=== PATIENT | female | born 1940 | race Caucasian/White ===

== ENCOUNTER → 2017-09-04 07:11 | Outpatient (CLI) | payer MEDICARE, SELFPAY ==
[2017-09-04 10:20] LABS: Absolute Lymphocyte Count 1.47 X10^3/ul (0.83-4.51); Absolute Neutrophil Count 5.1 X10^3/uL (2.0-7.7); Basophil# 0.01 X10^3/uL; Basophil% 0.1 % (0-1); Eosinophil# 0.11 X10^3/uL; Eosinophils% 1.5 % (0-5); Hemoglobin 13.8 g/dl (12.0-15.0); Lymphocyte # 1.47 X10^3/ul (4.0); Lymphocyte % 20.1 % (19-41); Mean Corp Hgb Conc 32.9 g/gl (32-36); Mean Corpuscular Hgb 32.4 pg (27.0-32.0); Mean Corpuscular Volume 98.6 fL (81-99); Mean Platelet Vol. 9.1 fl (6.2-12.0); Monocyte% 8.2 % (0-10); Neutrophil # 5.13 X10^3/uL (2.7-7.7); Platelet Count 298 K/mm3 (150-450); RBC Distribution Width CV 13.8 % (11.6-14.6); RBC Distribution Width SD 48.2 fl (35.1-43.9); Red Blood Count 4.26 M/mm3 (4.2-5.4); White Blood Count 7.3 K/mm3 (4.4-11.0)
[2017-09-04 10:22] LABS: POSITIVE COUNT NO; POSITIVE DIFFERENTIAL NO; POSITIVE MORPHOLOGY NO
[2017-09-04 10:33] LABS: AST(SGOT) 24 U/L (15-37); Alanine Aminotransfer ALT/SGPT 27 U/L (13-56); Albumin, Serum 3.9 g/dL (3.2-5.0); Alkaline Phosphatase 81 U/L (45-117); Anion Gap 9 (5-15); BUN 16 mg/dL (7-18); BUN/Creat Ratio 16.8 RATIO (10-20); Chloride 102 mmol/L (98-107); Creatinine, Serum 0.95 mg/dL (0.55-1.02); EST Glomerular Filtration Rate 61 mL/min (>60); Est Glom Filt Rate - Afr Amer 73 mL/min (>60); Glucose 91 mg/dL (74-106); Potassium 4.3 mmol/L (3.5-5.1); Protein, Total 7.9 g/dL (6.4-8.2); Sodium Level 140 mmol/L (136-145)
== END ==
PROVIDERS: Family Provider Family Medicine Geriatric Medicine; PCP Family Medicine Geriatric Medicine; Visit Provider Internal Medicine Rheumatology
DX: M06.09 Rheumatoid arthritis without rheumatoid factor, multiple sites (principal); M21.40 Flat foot [pes planus] (acquired), unspecified foot; J84.10 Pulmonary fibrosis, unspecified; M81.0 Age-related osteoporosis without current pathological fracture; E11.9 Type 2 diabetes mellitus without complications; E78.5 Hyperlipidemia, unspecified; Z79.899 Other long term (current) drug therapy
CPT/HCPCS: 36415; 80053; 85025

== ENCOUNTER → 2017-09-20 11:56 | Outpatient (CLI) | payer MEDICARE, SELFPAY ==
[2017-09-20 14:00] LABS: Absolute Lymphocyte Count 1.69 X10^3/ul (0.83-4.51); Absolute Neutrophil Count 4.1 X10^3/uL (2.0-7.7); Basophil# 0.02 X10^3/uL; Basophil% 0.3 % (0-1); Eosinophils% 1.5 % (0-5); Hematocrit 40.5 % (37-47); Hemoglobin 13.2 g/dl (12.0-15.0); Lymphocyte # 1.69 X10^3/ul (4.0); Mean Corp Hgb Conc 32.6 g/gl (32-36); Mean Corpuscular Hgb 32.4 pg (27.0-32.0); Mean Corpuscular Volume 99.3 fL (81-99); Mean Platelet Vol. 9.2 fl (6.2-12.0); Monocyte# 0.64 X10^3/uL; Monocyte% 9.8 % (0-10); Neutrophil # 4.05 X10^3/uL (2.7-7.7); Neutrophil % 62.2 % (47-70); Platelet Count 295 K/mm3 (150-450); RBC Distribution Width SD 49.7 fl (35.1-43.9); Red Blood Count 4.08 M/mm3 (4.2-5.4); White Blood Count 6.5 K/mm3 (4.4-11.0)
[2017-09-20 14:03] LABS: POSITIVE COUNT NO; POSITIVE DIFFERENTIAL NO; POSITIVE MORPHOLOGY NO
[2017-09-20 14:14] LABS: Vitamin D,25 Hydroxy 40.5 ng/mL (29.95-100.01)
[2017-09-20 14:23] LABS: ALB/GLOB Ratio 1.1 RATIO (0.9-2.4); AST(SGOT) 21 U/L (15-37); Alanine Aminotransfer ALT/SGPT 28 U/L (13-56); Alkaline Phosphatase 80 U/L (45-117); Anion Gap 10 (5-15); BUN 13 mg/dL (7-18); BUN/Creat Ratio 14.9 RATIO (10-20); Calcium,Total 9.5 mg/dL (8.5-10.1); Chloride 105 mmol/L (98-107); Creatinine, Serum 0.87 mg/dL (0.55-1.02); EST Glomerular Filtration Rate 67 mL/min (>60); Est Glom Filt Rate - Afr Amer 81 mL/min (>60); Globulin 3.8 g/dL (2.2-4.2); Glucose 92 mg/dL (74-106); Potassium 4.1 mmol/L (3.5-5.1); Protein, Total 7.8 g/dL (6.4-8.2); Sodium Level 142 mmol/L (136-145)
== END ==
PROVIDERS: Family Provider Family Medicine Geriatric Medicine; PCP Family Medicine Geriatric Medicine; Visit Provider Family Medicine Geriatric Medicine
DX: E11.9 Type 2 diabetes mellitus without complications (principal); I10 Essential (primary) hypertension; M81.0 Age-related osteoporosis without current pathological fracture
CPT/HCPCS: 36415; 80053; 82306; 84443; 85025

== ENCOUNTER → 2017-11-22 07:10 | Outpatient (CLI) | payer MEDICARE, SELFPAY ==
[2017-11-22 10:33] LABS: Absolute Lymphocyte Count 1.06 X10^3/ul (0.83-4.51); Absolute Neutrophil Count 4.8 X10^3/uL (2.0-7.7); Basophil# 0.02 X10^3/uL; Basophil% 0.3 % (0-1); Eosinophils% 1.5 % (0-5); Hematocrit 41.1 % (37-47); Hemoglobin 13.4 g/dl (12.0-15.0); Lymphocyte # 1.06 X10^3/ul (4.0); Lymphocyte % 16.2 % (19-41); Mean Corp Hgb Conc 32.6 g/gl (32-36); Mean Corpuscular Hgb 32.6 pg (27.0-32.0); Mean Platelet Vol. 9.2 fl (6.2-12.0); Monocyte# 0.62 X10^3/uL; Monocyte% 9.5 % (0-10); Neutrophil # 4.75 X10^3/uL (2.7-7.7); Neutrophil % 72.3 % (47-70); Platelet Count 309 K/mm3 (150-450); RBC Distribution Width CV 14.2 % (11.6-14.6); RBC Distribution Width SD 50.4 fl (35.1-43.9); Red Blood Count 4.11 M/mm3 (4.2-5.4); White Blood Count 6.6 K/mm3 (4.4-11.0)
[2017-11-22 11:13] LABS: POSITIVE COUNT NO; POSITIVE DIFFERENTIAL NO; POSITIVE MORPHOLOGY NO
[2017-11-22 11:14] LABS: AST(SGOT) 22 U/L (15-37); Alanine Aminotransfer ALT/SGPT 28 U/L (13-56); Albumin, Serum 3.8 g/dL (3.2-5.0); Alkaline Phosphatase 82 U/L (45-117); Anion Gap 6 (5-15); BUN 12 mg/dL (7-18); Calcium,Total 9.3 mg/dL (8.5-10.1); Chloride 105 mmol/L (98-107); Creatinine, Serum 0.93 mg/dL (0.55-1.02); EST Glomerular Filtration Rate 62 mL/min (>60); Est Glom Filt Rate - Afr Amer 75 mL/min (>60); Globulin 3.8 g/dL (2.2-4.2); Glucose 83 mg/dL (74-106); Potassium 3.9 mmol/L (3.5-5.1); Protein, Total 7.6 g/dL (6.4-8.2); Sodium Level 140 mmol/L (136-145)
== END ==
PROVIDERS: Family Provider Family Medicine Geriatric Medicine; PCP Family Medicine Geriatric Medicine; Visit Provider Internal Medicine Rheumatology
DX: M06.00 Rheumatoid arthritis without rheumatoid factor, unspecified site (principal); Z79.899 Other long term (current) drug therapy; M21.40 Flat foot [pes planus] (acquired), unspecified foot; J84.10 Pulmonary fibrosis, unspecified; M81.0 Age-related osteoporosis without current pathological fracture; E11.9 Type 2 diabetes mellitus without complications; E78.5 Hyperlipidemia, unspecified
CPT/HCPCS: 36415; 80053; 85025

== ENCOUNTER → 2018-02-20 07:13 | Outpatient (CLI) | payer MEDICARE, SELFPAY ==
[2018-02-20 11:07] LABS: ALB/GLOB Ratio 0.9 RATIO (0.9-2.4); AST(SGOT) 18 U/L (15-37); Alanine Aminotransfer ALT/SGPT 27 U/L (13-56); Albumin, Serum 3.7 g/dL (3.2-5.0); Alkaline Phosphatase 77 U/L (45-117); Anion Gap 9 (5-15); BUN 12 mg/dL (7-18); BUN/Creat Ratio 13.2 RATIO (10-20); Calcium,Total 9.8 mg/dL (8.5-10.1); Chloride 105 mmol/L (98-107); Creatinine, Serum 0.91 mg/dL (0.55-1.02); EST Glomerular Filtration Rate 64 mL/min (>60); Est Glom Filt Rate - Afr Amer 77 mL/min (>60); Globulin 3.9 g/dL (2.2-4.2); Glucose 88 mg/dL (74-106); Potassium 4.2 mmol/L (3.5-5.1); Protein, Total 7.6 g/dL (6.4-8.2); Sodium Level 141 mmol/L (136-145)
[2018-02-20 12:00] LABS: Absolute Neutrophil Count 4.8 X10^3/uL (2.0-7.7); Basophil# 0.02 X10^3/uL; Basophil% 0.3 % (0-1); Eosinophil# 0.08 X10^3/uL; Eosinophils% 1.2 % (0-5); Hemoglobin 13.2 g/dl (12.0-15.0); Lymphocyte % 16.9 % (19-41); Mean Corp Hgb Conc 32.2 g/gl (32-36); Mean Corpuscular Hgb 32.4 pg (27.0-32.0); Mean Corpuscular Volume 100.5 fL (81-99); Mean Platelet Vol. 8.9 fl (6.2-12.0); Monocyte% 7.7 % (0-10); Neutrophil # 4.81 X10^3/uL (2.7-7.7); Neutrophil % 73.7 % (47-70); Platelet Count 332 K/mm3 (150-450); RBC Distribution Width SD 50.3 fl (35.1-43.9); Red Blood Count 4.08 M/mm3 (4.2-5.4); White Blood Count 6.5 K/mm3 (4.4-11.0)
[2018-02-20 12:23] LABS: POSITIVE COUNT NO; POSITIVE DIFFERENTIAL NO; POSITIVE MORPHOLOGY NO
== END ==
PROVIDERS: Family Provider Family Medicine Geriatric Medicine; PCP Family Medicine Geriatric Medicine; Visit Provider Internal Medicine Rheumatology
DX: M06.041 Rheumatoid arthritis without rheumatoid factor, right hand (principal); M21.40 Flat foot [pes planus] (acquired), unspecified foot; J84.10 Pulmonary fibrosis, unspecified; E11.9 Type 2 diabetes mellitus without complications; E78.5 Hyperlipidemia, unspecified; M81.0 Age-related osteoporosis without current pathological fracture; Z79.899 Other long term (current) drug therapy
CPT/HCPCS: 36415; 80053; 85025

== ENCOUNTER → 2018-03-26 10:54 | Outpatient (CLI) | payer MEDICARE, SELFPAY ==
--- NOTE | 2018-03-26 11:00 | RAD_ITS ---
STUDY: X-RAY - SACRUM/COCCYX REASON FOR EXAM: Female, 78 years old. Coccyx pain x1 year TECHNIQUE: 3 view(s) of the sacrum and coccyx were obtained. COMPARISON: None. 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 Normal visualized sacral ala and fused sacral bodies. Normal sacrococcygeal junction with a normal angulation. There is demineralization of the coccygeal segments. The presacral soft tissue structures are unremarkable. There is no demonstrated fracture. Left hip arthroplasty RAD/Sacrum-Coccyx min 2 Views IMPRESSION: No acute findings Electronically Signed: Alli Virk DO at 10:06 EDT Tel , Service support ,
[2018-03-26 16:30] LABS: Absolute Lymphocyte Count 1.89 X10^3/ul (0.83-4.51); Absolute Neutrophil Count 4.2 X10^3/uL (2.0-7.7); Basophil# 0.02 X10^3/uL; Basophil% 0.3 % (0-1); Eosinophil# 0.11 X10^3/uL; Eosinophils% 1.7 % (0-5); Hematocrit 41.2 % (37-47); Hemoglobin 13.2 g/dl (12.0-15.0); Lymphocyte # 1.89 X10^3/ul (4.0); Lymphocyte % 28.4 % (19-41); Mean Corpuscular Hgb 32.7 pg (27.0-32.0); Mean Platelet Vol. 9.3 fl (6.2-12.0); Monocyte# 0.44 X10^3/uL; Monocyte% 6.6 % (0-10); Neutrophil # 4.19 X10^3/uL (2.7-7.7); Neutrophil % 62.8 % (47-70); Platelet Count 351 K/mm3 (150-450); RBC Distribution Width CV 14.2 % (11.6-14.6); RBC Distribution Width SD 52.1 fl (35.1-43.9); Red Blood Count 4.04 M/mm3 (4.2-5.4); White Blood Count 6.7 K/mm3 (4.4-11.0)
[2018-03-26 16:45] LABS: Vitamin D,25 Hydroxy 37.5 ng/mL (29.95-100.01)
[2018-03-26 16:58] LABS: AST(SGOT) 22 U/L (15-37); Alanine Aminotransfer ALT/SGPT 26 U/L (13-56); Albumin, Serum 3.9 g/dL (3.2-5.0); Alkaline Phosphatase 79 U/L (45-117); Anion Gap 8 (5-15); BUN 14 mg/dL (7-18); BUN/Creat Ratio 14.4 RATIO (10-20); Calcium,Total 9.5 mg/dL (8.5-10.1); Chloride 104 mmol/L (98-107); Creatinine, Serum 0.97 mg/dL (0.55-1.02); EST Glomerular Filtration Rate 59 mL/min (>60); Est Glom Filt Rate - Afr Amer 71 mL/min (>60); Globulin 4.1 g/dL (2.2-4.2); Glucose 86 mg/dL (74-106); Potassium 4.2 mmol/L (3.5-5.1); Sodium Level 140 mmol/L (136-145); Thyroid Stim Hormone (TSH) 3.28 uIU/mL (0.358-3.74)
[2018-03-26 17:09] LABS: POSITIVE COUNT NO; POSITIVE DIFFERENTIAL NO; POSITIVE MORPHOLOGY NO
== END ==
PROVIDERS: Family Provider Family Medicine Geriatric Medicine; PCP Family Medicine Geriatric Medicine; Referring Provider Family Medicine Geriatric Medicine; Visit Provider Family Medicine Geriatric Medicine
DX: S33.8XXA Sprain of other parts of lumbar spine and pelvis, initial encounter (principal); X58.XXXA Exposure to other specified factors, initial encounter; Y93.9 Activity, unspecified; Y92.9 Unspecified place or not applicable; Y99.9 Unspecified external cause status; E11.9 Type 2 diabetes mellitus without complications; I10 Essential (primary) hypertension; E55.9 Vitamin D deficiency, unspecified
CPT/HCPCS: 36415; 72220; 80053; 82306; 84443; 85025

== ENCOUNTER → 2018-05-16 07:01 | Outpatient (CLI) | payer MEDICARE, SELFPAY ==
[2018-05-16 10:22] LABS: Absolute Lymphocyte Count 1.01 X10^3/ul (0.83-4.51); Absolute Neutrophil Count 5.3 X10^3/uL (2.0-7.7); Basophil# 0.01 X10^3/uL; Basophil% 0.1 % (0-1); Eosinophil# 0.06 X10^3/uL; Eosinophils% 0.9 % (0-5); Hematocrit 43.3 % (37-47); Lymphocyte # 1.01 X10^3/ul (4.0); Lymphocyte % 14.7 % (19-41); Mean Corp Hgb Conc 32.3 g/gl (32-36); Mean Corpuscular Hgb 32.3 pg (27.0-32.0); Monocyte# 0.54 X10^3/uL; Monocyte% 7.9 % (0-10); Neutrophil # 5.25 X10^3/uL (2.7-7.7); Neutrophil % 76.4 % (47-70); Platelet Count 316 K/mm3 (150-450); RBC Distribution Width CV 13.8 % (11.6-14.6); RBC Distribution Width SD 50.8 fl (35.1-43.9); Red Blood Count 4.33 M/mm3 (4.2-5.4); White Blood Count 6.9 K/mm3 (4.4-11.0)
[2018-05-16 10:23] LABS: POSITIVE COUNT NO; POSITIVE DIFFERENTIAL NO; POSITIVE MORPHOLOGY NO
[2018-05-16 10:33] LABS: ALB/GLOB Ratio 0.9 RATIO (0.9-2.4); AST(SGOT) 23 U/L (15-37); Alanine Aminotransfer ALT/SGPT 24 U/L (13-56); Alkaline Phosphatase 83 U/L (45-117); Anion Gap 9 (5-15); BUN 17 mg/dL (7-18); BUN/Creat Ratio 15.5 RATIO (10-20); Calcium,Total 10.4 mg/dL (8.5-10.1); Chloride 103 mmol/L (98-107); EST Glomerular Filtration Rate 51 mL/min (>60); Est Glom Filt Rate - Afr Amer 62 mL/min (>60); Globulin 4.3 g/dL (2.2-4.2); Glucose 95 mg/dL (74-106); Potassium 4.2 mmol/L (3.5-5.1); Protein, Total 8.3 g/dL (6.4-8.2); Sodium Level 142 mmol/L (136-145)
== END ==
PROVIDERS: Family Provider Family Medicine Geriatric Medicine; PCP Family Medicine Geriatric Medicine; Referring Provider Internal Medicine Rheumatology; Visit Provider Internal Medicine Rheumatology
DX: M06.00 Rheumatoid arthritis without rheumatoid factor, unspecified site (principal); Z79.899 Other long term (current) drug therapy; M21.40 Flat foot [pes planus] (acquired), unspecified foot; J84.10 Pulmonary fibrosis, unspecified; M81.0 Age-related osteoporosis without current pathological fracture; E11.9 Type 2 diabetes mellitus without complications; E78.5 Hyperlipidemia, unspecified
CPT/HCPCS: 36415; 80053; 85025

== ENCOUNTER → 2018-08-21 07:02 | Outpatient (CLI) | payer MEDICARE, SELFPAY ==
[2018-08-21 09:56] LABS: Absolute Lymphocyte Count 1.18 X10^3/ul (0.83-4.51); Basophil# 0.02 X10^3/uL; Basophil% 0.2 % (0-1); Eosinophil# 0.08 X10^3/uL; Eosinophils% 0.8 % (0-5); Hematocrit 43.1 % (37-47); Hemoglobin 13.7 g/dl (12.0-15.0); Lymphocyte # 1.18 X10^3/ul (4.0); Lymphocyte % 11.8 % (19-41); Mean Corp Hgb Conc 31.8 g/gl (32-36); Mean Corpuscular Hgb 31.1 pg (27.0-32.0); Mean Platelet Vol. 8.7 fl (6.2-12.0); Monocyte# 0.73 X10^3/uL; Monocyte% 7.3 % (0-10); Neutrophil % 79.7 % (47-70); POSITIVE COUNT NO; POSITIVE DIFFERENTIAL NO; POSITIVE MORPHOLOGY NO; Platelet Count 412 K/mm3 (150-450); RBC Distribution Width CV 13.7 % (11.6-14.6); RBC Distribution Width SD 47.2 fl (35.1-43.9)
[2018-08-21 10:10] LABS: ALB/GLOB Ratio 0.8 RATIO (0.9-2.4); AST(SGOT) 18 U/L (15-37); Alanine Aminotransfer ALT/SGPT 25 U/L (13-56); Albumin, Serum 3.5 g/dL (3.2-5.0); Alkaline Phosphatase 71 U/L (45-117); Anion Gap 12 (5-15); BUN 17 mg/dL (7-18); BUN/Creat Ratio 18.3 RATIO (10-20); Calcium,Total 9.8 mg/dL (8.5-10.1); Chloride 101 mmol/L (98-107); Creatinine, Serum 0.93 mg/dL (0.55-1.02); EST Glomerular Filtration Rate 62 mL/min (>60); Est Glom Filt Rate - Afr Amer 75 mL/min (>60); Globulin 4.6 g/dL (2.2-4.2); Glucose 142 mg/dL (74-106); Potassium 4.3 mmol/L (3.5-5.1); Protein, Total 8.1 g/dL (6.4-8.2); Sodium Level 140 mmol/L (136-145)
== END ==
PROVIDERS: Family Provider Family Medicine Geriatric Medicine; PCP Family Medicine Geriatric Medicine; Referring Provider Internal Medicine Rheumatology; Visit Provider Internal Medicine Rheumatology
DX: M06.00 Rheumatoid arthritis without rheumatoid factor, unspecified site (principal); M21.40 Flat foot [pes planus] (acquired), unspecified foot; J84.10 Pulmonary fibrosis, unspecified; M81.0 Age-related osteoporosis without current pathological fracture; E11.9 Type 2 diabetes mellitus without complications; E78.5 Hyperlipidemia, unspecified; Z79.899 Other long term (current) drug therapy
CPT/HCPCS: 36415; 80053; 85025

== ENCOUNTER → 2018-09-20 14:41 | Outpatient (CLI) | payer MEDICARE, SELFPAY ==
[2018-09-20 16:47] LABS: Absolute Lymphocyte Count 1.73 X10^3/ul (0.83-4.51); Absolute Neutrophil Count 5.3 X10^3/uL (2.0-7.7); Basophil# 0.02 X10^3/uL; Basophil% 0.3 % (0-1); Eosinophil# 0.08 X10^3/uL; Hematocrit 40.6 % (37-47); Hemoglobin 12.9 g/dl (12.0-15.0); Lymphocyte # 1.73 X10^3/ul (4.0); Lymphocyte % 22.1 % (19-41); Mean Corp Hgb Conc 31.8 g/gl (32-36); Mean Corpuscular Hgb 30.9 pg (27.0-32.0); Mean Corpuscular Volume 97.1 fL (81-99); Mean Platelet Vol. 8.9 fl (6.2-12.0); Monocyte# 0.68 X10^3/uL; Monocyte% 8.7 % (0-10); Neutrophil # 5.32 X10^3/uL (2.7-7.7); Neutrophil % 67.8 % (47-70); Platelet Count 455 K/mm3 (150-450); RBC Distribution Width CV 14.1 % (11.6-14.6); Red Blood Count 4.18 M/mm3 (4.2-5.4); White Blood Count 7.8 K/mm3 (4.4-11.0)
[2018-09-20 16:50] LABS: POSITIVE COUNT NO; POSITIVE DIFFERENTIAL NO; POSITIVE MORPHOLOGY NO
[2018-09-20 17:34] LABS: Vitamin D,25 Hydroxy 39.6 ng/mL (29.95-100.01)
[2018-09-20 17:38] LABS: ALB/GLOB Ratio 0.9 RATIO (0.9-2.4); AST(SGOT) 22 U/L (15-37); Alanine Aminotransfer ALT/SGPT 23 U/L (13-56); Albumin, Serum 3.8 g/dL (3.2-5.0); Alkaline Phosphatase 72 U/L (45-117); Anion Gap 8 (5-15); BUN 14 mg/dL (7-18); BUN/Creat Ratio 14.9 RATIO (10-20); Calcium,Total 9.4 mg/dL (8.5-10.1); Chloride 103 mmol/L (98-107); Creatinine, Serum 0.94 mg/dL (0.55-1.02); EST Glomerular Filtration Rate 61 mL/min (>60); Est Glom Filt Rate - Afr Amer 74 mL/min (>60); Globulin 4.1 g/dL (2.2-4.2); Glucose 98 mg/dL (74-106); Protein, Total 7.9 g/dL (6.4-8.2); Sodium Level 136 mmol/L (136-145)
== END ==
PROVIDERS: Family Provider Family Medicine Geriatric Medicine; PCP Family Medicine Geriatric Medicine; Visit Provider Family Medicine Geriatric Medicine
DX: E11.9 Type 2 diabetes mellitus without complications (principal); I10 Essential (primary) hypertension; E55.9 Vitamin D deficiency, unspecified
CPT/HCPCS: 36415; 80053; 82306; 84443; 85025

== ENCOUNTER → 2018-11-13 07:02 | Outpatient (CLI) | payer MEDICARE, SELFPAY ==
[2018-11-13 09:57] LABS: Absolute Lymphocyte Count 1.22 X10^3/ul (0.83-4.51); Basophil# 0.01 X10^3/uL; Basophil% 0.2 % (0-1); Eosinophil# 0.12 X10^3/uL; Eosinophils% 2.1 % (0-5); Hematocrit 40.2 % (37-47); Lymphocyte # 1.22 X10^3/ul (4.0); Mean Corp Hgb Conc 32.3 g/gl (32-36); Mean Corpuscular Hgb 31.5 pg (27.0-32.0); Mean Corpuscular Volume 97.3 fL (81-99); Monocyte# 0.48 X10^3/uL; Monocyte% 8.2 % (0-10); Neutrophil # 3.99 X10^3/uL (2.7-7.7); Neutrophil % 68.5 % (47-70); Platelet Count 308 K/mm3 (150-450); RBC Distribution Width CV 14.9 % (11.6-14.6); RBC Distribution Width SD 50.8 fl (35.1-43.9); Red Blood Count 4.13 M/mm3 (4.2-5.4); White Blood Count 5.8 K/mm3 (4.4-11.0)
[2018-11-13 09:58] LABS: POSITIVE COUNT NO; POSITIVE DIFFERENTIAL NO; POSITIVE MORPHOLOGY NO
[2018-11-13 10:18] LABS: ALB/GLOB Ratio 0.9 RATIO (0.9-2.4); AST(SGOT) 18 U/L (15-37); Alanine Aminotransfer ALT/SGPT 20 U/L (13-56); Albumin, Serum 3.6 g/dL (3.2-5.0); Alkaline Phosphatase 88 U/L (45-117); Anion Gap 6 (5-15); BUN 17 mg/dL (7-18); BUN/Creat Ratio 18.8 RATIO (10-20); Calcium,Total 10.1 mg/dL (8.5-10.1); Chloride 105 mmol/L (98-107); EST Glomerular Filtration Rate 64 mL/min (>60); Est Glom Filt Rate - Afr Amer 77 mL/min (>60); Globulin 4.2 g/dL (2.2-4.2); Glucose 102 mg/dL (74-106); Potassium 4.1 mmol/L (3.5-5.1); Protein, Total 7.8 g/dL (6.4-8.2); Sodium Level 140 mmol/L (136-145)
== END ==
PROVIDERS: Family Provider Family Medicine Geriatric Medicine; PCP Family Medicine Geriatric Medicine; Referring Provider Internal Medicine Rheumatology; Visit Provider Internal Medicine Rheumatology
DX: M06.00 Rheumatoid arthritis without rheumatoid factor, unspecified site (principal); M21.40 Flat foot [pes planus] (acquired), unspecified foot; J84.10 Pulmonary fibrosis, unspecified; M81.0 Age-related osteoporosis without current pathological fracture; E11.9 Type 2 diabetes mellitus without complications; E78.5 Hyperlipidemia, unspecified; Z79.899 Other long term (current) drug therapy
CPT/HCPCS: 36415; 80053; 85025

== ENCOUNTER → 2019-02-05 07:02 | Outpatient (CLI) | payer MEDICARE, SELFPAY ==
[2019-02-05 10:44] LABS: Absolute Lymphocyte Count 1.02 X10^3/uL (0.83-4.51); Absolute Neutrophil Count 5.5 X10^3/uL (2.0-7.7); Basophil# 0.04 X10^3/uL; Basophil% 0.5 % (0-1); Eosinophil# 0.25 X10^3/uL; Eosinophils% 3.4 % (0-5); Hematocrit 39.7 % (37-47); Hemoglobin 12.8 g/dL (12.0-15.0); Lymphocyte # 1.02 X10^3/ul (4.0); Lymphocyte % 13.7 % (19-41); Mean Corp Hgb Conc 32.2 g/dL (32-36); Mean Corpuscular Hgb 32.1 pg (27.0-32.0); Mean Corpuscular Volume 99.5 fL (81-99); Mean Platelet Vol. 8.8 fl (6.2-12.0); Monocyte# 0.59 X10^3/uL; Monocyte% 7.9 % (0-10); NRBC Flagged by Analyzer 0 % (0-5); Neutrophil # 5.51 X10^3/uL (2.7-7.7); Platelet Count 416 K/mm3 (150-450); RBC Distribution Width CV 13.7 % (11.6-14.6); Red Blood Count 3.99 M/mm3 (4.2-5.4); White Blood Count 7.5 K/mm3 (4.4-11.0)
[2019-02-05 11:09] LABS: ALB/GLOB Ratio 0.8 RATIO (0.9-2.4); AST(SGOT) 23 U/L (15-37); Alanine Aminotransfer ALT/SGPT 24 U/L (13-56); Albumin, Serum 3.3 g/dL (3.2-5.0); Alkaline Phosphatase 70 U/L (45-117); Anion Gap 8 (5-15); BUN 11 mg/dL (7-18); BUN/Creat Ratio 12.2 RATIO (10-20); Calcium,Total 9.8 mg/dL (8.5-10.1); Chloride 107 mmol/L (98-107); EST Glomerular Filtration Rate 64 mL/min (>60); Est Glom Filt Rate - Afr Amer 77 mL/min (>60); Globulin 4.2 g/dL (2.2-4.2); Glucose 117 mg/dL (74-106); Potassium 4.2 mmol/L (3.5-5.1); Protein, Total 7.5 g/dL (6.4-8.2); Sodium Level 144 mmol/L (136-145)
== END ==
PROVIDERS: Family Provider Family Medicine Geriatric Medicine; PCP Family Medicine Geriatric Medicine; Referring Provider Internal Medicine Rheumatology; Visit Provider Internal Medicine Rheumatology
DX: M06.00 Rheumatoid arthritis without rheumatoid factor, unspecified site (principal); M21.40 Flat foot [pes planus] (acquired), unspecified foot; J84.10 Pulmonary fibrosis, unspecified; E11.9 Type 2 diabetes mellitus without complications; E78.5 Hyperlipidemia, unspecified; M81.0 Age-related osteoporosis without current pathological fracture; Z79.899 Other long term (current) drug therapy
CPT/HCPCS: 36415; 80053; 85025

== ENCOUNTER → 2019-03-27 10:47 | Outpatient (CLI) | payer MEDICARE, SELFPAY ==
[2019-03-27 12:47] LABS: Absolute Lymphocyte Count 1.67 X10^3/uL (0.83-4.51); Absolute Neutrophil Count 4.4 X10^3/uL (2.0-7.7); Basophil# 0.04 X10^3/uL; Basophil% 0.6 % (0-1); Eosinophil# 0.17 X10^3/uL; Eosinophils% 2.5 % (0-5); Hematocrit 36.6 % (37-47); Hemoglobin 11.7 g/dL (12.0-15.0); Lymphocyte # 1.67 X10^3/ul (4.0); Lymphocyte % 24.5 % (19-41); Mean Corpuscular Hgb 32.1 pg (27.0-32.0); Mean Corpuscular Volume 100.3 fL (81-99); Mean Platelet Vol. 9.2 fl (6.2-12.0); Monocyte% 7.3 % (0-10); NRBC Flagged by Analyzer 0 % (0-5); Neutrophil # 4.43 X10^3/uL (2.7-7.7); Neutrophil % 64.8 % (47-70); Platelet Count 333 K/mm3 (150-450); RBC Distribution Width CV 15.2 % (11.6-14.6); RBC Distribution Width SD 56.2 fl (35.1-43.9); Red Blood Count 3.65 M/mm3 (4.2-5.4); White Blood Count 6.8 K/mm3 (4.4-11.0)
[2019-03-27 13:05] LABS: Vitamin D,25 Hydroxy 60.8 ng/mL (29.95-100.01)
[2019-03-27 13:17] LABS: ALB/GLOB Ratio 0.8 RATIO (0.9-2.4); AST(SGOT) 21 U/L (15-37); Alanine Aminotransfer ALT/SGPT 21 U/L (13-56); Albumin, Serum 3.4 g/dL (3.2-5.0); Alkaline Phosphatase 71 U/L (45-117); Anion Gap 5 (5-15); BUN 14 mg/dL (7-18); BUN/Creat Ratio 16.4 RATIO (10-20); Calcium,Total 9.2 mg/dL (8.5-10.1); Chloride 105 mmol/L (98-107); Creatinine, Serum 0.85 mg/dL (0.55-1.02); EST Glomerular Filtration Rate 68 mL/min (>60); Est Glom Filt Rate - Afr Amer 83 mL/min (>60); Glucose 90 mg/dL (74-106); Potassium 4.3 mmol/L (3.5-5.1); Protein, Total 7.4 g/dL (6.4-8.2); Sodium Level 138 mmol/L (136-145); Thyroid Stim Hormone (TSH) 3.32 uIU/mL (0.358-3.74)
== END ==
PROVIDERS: Family Provider Family Medicine Geriatric Medicine; PCP Family Medicine Geriatric Medicine; Visit Provider Family Medicine Geriatric Medicine
DX: E11.9 Type 2 diabetes mellitus without complications (principal); E55.9 Vitamin D deficiency, unspecified; I10 Essential (primary) hypertension
CPT/HCPCS: 36415; 80053; 82306; 84443; 85025

== ENCOUNTER → 2019-05-06 07:02 | Outpatient (CLI) | payer MEDICARE, SELFPAY ==
[2019-05-06 10:23] LABS: Absolute Lymphocyte Count 1.23 X10^3/uL (0.83-4.51); Absolute Neutrophil Count 4.8 X10^3/uL (2.0-7.7); Basophil# 0.02 X10^3/uL; Basophil% 0.3 % (0-1); Eosinophil# 0.12 X10^3/uL; Eosinophils% 1.8 % (0-5); Hematocrit 39.9 % (37-47); Hemoglobin 12.6 g/dL (12.0-15.0); Lymphocyte # 1.23 X10^3/ul (4.0); Lymphocyte % 18.5 % (19-41); Mean Corp Hgb Conc 31.6 g/dL (32-36); Mean Corpuscular Hgb 32.1 pg (27.0-32.0); Mean Corpuscular Volume 101.5 fL (81-99); Mean Platelet Vol. 9.2 fl (6.2-12.0); Monocyte# 0.46 X10^3/uL; Monocyte% 6.9 % (0-10); NRBC Flagged by Analyzer 0 % (0-5); Neutrophil # 4.81 X10^3/uL (2.7-7.7); Neutrophil % 72.3 % (47-70); Platelet Count 316 K/mm3 (150-450); RBC Distribution Width CV 14.6 % (11.6-14.6); RBC Distribution Width SD 54.2 fl (35.1-43.9); Red Blood Count 3.93 M/mm3 (4.2-5.4); White Blood Count 6.7 K/mm3 (4.4-11.0)
[2019-05-06 10:45] LABS: ALB/GLOB Ratio 0.9 RATIO (0.9-2.4); AST(SGOT) 18 U/L (15-37); Alanine Aminotransfer ALT/SGPT 22 U/L (13-56); Albumin, Serum 3.5 g/dL (3.2-5.0); Alkaline Phosphatase 75 U/L (45-117); Anion Gap 4 (5-15); BUN 12 mg/dL (7-18); BUN/Creat Ratio 14.3 RATIO (10-20); Calcium,Total 9.5 mg/dL (8.5-10.1); Chloride 107 mmol/L (98-107); Creatinine, Serum 0.84 mg/dL (0.55-1.02); EST Glomerular Filtration Rate 69 mL/min (>60); Est Glom Filt Rate - Afr Amer 84 mL/min (>60); Globulin 3.9 g/dL (2.2-4.2); Glucose 137 mg/dL (74-106); Potassium 4.5 mmol/L (3.5-5.1); Protein, Total 7.4 g/dL (6.4-8.2); Sodium Level 140 mmol/L (136-145)
== END ==
PROVIDERS: Family Provider Family Medicine Geriatric Medicine; PCP Family Medicine Geriatric Medicine; Referring Provider Internal Medicine Rheumatology; Visit Provider Internal Medicine Rheumatology
DX: M06.00 Rheumatoid arthritis without rheumatoid factor, unspecified site (principal); M21.40 Flat foot [pes planus] (acquired), unspecified foot; J84.10 Pulmonary fibrosis, unspecified; M81.0 Age-related osteoporosis without current pathological fracture; E11.9 Type 2 diabetes mellitus without complications; E78.5 Hyperlipidemia, unspecified; Z79.899 Other long term (current) drug therapy
CPT/HCPCS: 36415; 80053; 85025

== ENCOUNTER → 2019-08-06 08:39 | Outpatient (CLI) | payer MEDICARE, SELFPAY ==
[2019-08-06 10:43] LABS: Absolute Lymphocyte Count 1.48 X10^3/uL (0.83-4.51); Absolute Neutrophil Count 4.2 X10^3/uL (2.0-7.7); Basophil# 0.02 X10^3/uL; Basophil% 0.3 % (0-1); Eosinophil# 0.12 X10^3/uL; Eosinophils% 1.9 % (0-5); Hemoglobin 13.2 g/dL (12.0-15.0); Lymphocyte # 1.48 X10^3/ul (4.0); Lymphocyte % 23.3 % (19-41); Mean Corp Hgb Conc 32.2 g/dL (32-36); Mean Corpuscular Hgb 32.8 pg (27.0-32.0); Mean Corpuscular Volume 101.7 fL (81-99); Mean Platelet Vol. 9.3 fl (6.2-12.0); Monocyte# 0.56 X10^3/uL; Monocyte% 8.8 % (0-10); NRBC Flagged by Analyzer 0 % (0-5); Neutrophil # 4.15 X10^3/uL (2.7-7.7); Neutrophil % 65.4 % (47-70); Platelet Count 293 K/mm3 (150-450); RBC Distribution Width SD 52.1 fl (35.1-43.9); Red Blood Count 4.03 M/mm3 (4.2-5.4); White Blood Count 6.4 K/mm3 (4.4-11.0)
[2019-08-06 10:57] LABS: ALB/GLOB Ratio 0.9 RATIO (0.9-2.4); AST(SGOT) 16 U/L (15-37); Alanine Aminotransfer ALT/SGPT 25 U/L (13-56); Albumin, Serum 3.7 g/dL (3.2-5.0); Alkaline Phosphatase 77 U/L (45-117); Anion Gap 4 (5-15); BUN 16 mg/dL (7-18); BUN/Creat Ratio 16.3 RATIO (10-20); Calcium,Total 9.7 mg/dL (8.5-10.1); Chloride 108 mmol/L (98-107); Creatinine, Serum 0.98 mg/dL (0.55-1.02); EST Glomerular Filtration Rate 58 mL/min (>60); Est Glom Filt Rate - Afr Amer 70 mL/min (>60); Globulin 4.1 g/dL (2.2-4.2); Glucose 113 mg/dL (74-106); Potassium 4.2 mmol/L (3.5-5.1); Protein, Total 7.8 g/dL (6.4-8.2); Sodium Level 141 mmol/L (136-145)
== END ==
PROVIDERS: PCP Family Medicine Geriatric Medicine; Referring Provider Internal Medicine Rheumatology; Visit Provider Internal Medicine Rheumatology
DX: M06.09 Rheumatoid arthritis without rheumatoid factor, multiple sites (principal); M21.40 Flat foot [pes planus] (acquired), unspecified foot; J84.10 Pulmonary fibrosis, unspecified; M81.0 Age-related osteoporosis without current pathological fracture; E11.9 Type 2 diabetes mellitus without complications; E78.5 Hyperlipidemia, unspecified; Z79.899 Other long term (current) drug therapy
CPT/HCPCS: 36415; 80053; 85025

== ENCOUNTER → 2019-10-29 07:04 | Outpatient (CLI) | payer MEDICARE, SELFPAY ==
[2019-10-29 10:20] LABS: Absolute Lymphocyte Count 1.39 X10^3/uL (0.83-4.51); Absolute Neutrophil Count 5.8 X10^3/uL (2.0-7.7); Basophil# 0.03 X10^3/uL; Basophil% 0.4 % (0-1); Eosinophil# 0.11 X10^3/uL; Eosinophils% 1.4 % (0-5); Hematocrit 42.4 % (37-47); Hemoglobin 13.5 g/dL (12.0-15.0); Lymphocyte # 1.39 X10^3/ul (4.0); Lymphocyte % 17.2 % (19-41); Mean Corp Hgb Conc 31.8 g/dL (32-36); Mean Corpuscular Hgb 32.9 pg (27.0-32.0); Mean Corpuscular Volume 103.4 fL (81-99); Mean Platelet Vol. 9.2 fl (6.2-12.0); Monocyte# 0.69 X10^3/uL; Monocyte% 8.6 % (0-10); NRBC Flagged by Analyzer 0 % (0-5); Neutrophil # 5.81 X10^3/uL (2.7-7.7); Platelet Count 292 K/mm3 (150-450); RBC Distribution Width CV 13.4 % (11.6-14.6); RBC Distribution Width SD 50.7 fl (35.1-43.9); White Blood Count 8.1 K/mm3 (4.4-11.0)
[2019-10-29 10:33] LABS: AST(SGOT) 19 U/L (15-37); Alanine Aminotransfer ALT/SGPT 23 U/L (13-56); Albumin, Serum 3.8 g/dL (3.2-5.0); Alkaline Phosphatase 78 U/L (45-117); Anion Gap 5 (5-15); BUN 16 mg/dL (7-18); BUN/Creat Ratio 17.5 RATIO (10-20); Calcium,Total 10.2 mg/dL (8.5-10.1); Chloride 103 mmol/L (98-107); Creatinine, Serum 0.91 mg/dL (0.55-1.02); EST Glomerular Filtration Rate 63 mL/min (>60); Est Glom Filt Rate - Afr Amer 76 mL/min (>60); Globulin 3.9 g/dL (2.2-4.2); Glucose 120 mg/dL (74-106); Potassium 4.3 mmol/L (3.5-5.1); Protein, Total 7.7 g/dL (6.4-8.2); Sodium Level 139 mmol/L (136-145)
== END ==
PROVIDERS: PCP Family Medicine Geriatric Medicine; Referring Provider Internal Medicine Rheumatology; Visit Provider Internal Medicine Rheumatology
DX: M06.09 Rheumatoid arthritis without rheumatoid factor, multiple sites (principal); M21.40 Flat foot [pes planus] (acquired), unspecified foot; J84.10 Pulmonary fibrosis, unspecified; M81.0 Age-related osteoporosis without current pathological fracture; E11.9 Type 2 diabetes mellitus without complications; E78.5 Hyperlipidemia, unspecified; Z79.899 Other long term (current) drug therapy
CPT/HCPCS: 36415; 80053; 85025

== ENCOUNTER → 2020-01-27 07:42 | Outpatient (CLI) | payer MEDICARE, SELFPAY ==
[2020-01-27 09:55] LABS: Absolute Lymphocyte Count 1.12 X10^3/uL (0.83-4.51); Absolute Neutrophil Count 5.1 X10^3/uL (2.0-7.7); Basophil# 0.02 X10^3/uL; Basophil% 0.3 % (0-1); Eosinophil# 0.13 X10^3/uL; Eosinophils% 1.9 % (0-5); Hematocrit 41.8 % (37-47); Hemoglobin 13.6 g/dL (12.0-15.0); Lymphocyte # 1.12 X10^3/ul (4.0); Lymphocyte % 16.5 % (19-41); Mean Corp Hgb Conc 32.5 g/dL (32-36); Mean Corpuscular Hgb 33.1 pg (27.0-32.0); Mean Corpuscular Volume 101.7 fL (81-99); Mean Platelet Vol. 8.8 fl (6.2-12.0); Monocyte# 0.43 X10^3/uL; Monocyte% 6.3 % (0-10); NRBC Flagged by Analyzer 0 % (0-5); Neutrophil # 5.07 X10^3/uL (2.7-7.7); Neutrophil % 74.7 % (47-70); Platelet Count 285 K/mm3 (150-450); RBC Distribution Width CV 13.4 % (11.6-14.6); RBC Distribution Width SD 50.1 fl (35.1-43.9); Red Blood Count 4.11 M/mm3 (4.2-5.4); White Blood Count 6.8 K/mm3 (4.4-11.0)
[2020-01-27 10:21] LABS: AST(SGOT) 20 U/L (15-37); Alanine Aminotransfer ALT/SGPT 22 U/L (13-56); Albumin, Serum 3.8 g/dL (3.2-5.0); Alkaline Phosphatase 82 U/L (45-117); Anion Gap 4 (5-15); BUN 15 mg/dL (7-18); BUN/Creat Ratio 15.7 RATIO (10-20); Calcium,Total 9.7 mg/dL (8.5-10.1); Chloride 107 mmol/L (98-107); Creatinine, Serum 0.96 mg/dL (0.55-1.02); EST Glomerular Filtration Rate 60 mL/min (>60); Est Glom Filt Rate - Afr Amer 72 mL/min (>60); Globulin 3.9 g/dL (2.2-4.2); Glucose 117 mg/dL (74-106); Potassium 4.1 mmol/L (3.5-5.1); Protein, Total 7.7 g/dL (6.4-8.2); Sodium Level 141 mmol/L (136-145)
== END ==
PROVIDERS: PCP Family Medicine Geriatric Medicine; Referring Provider Internal Medicine Rheumatology; Visit Provider Internal Medicine Rheumatology
DX: M06.09 Rheumatoid arthritis without rheumatoid factor, multiple sites (principal); M21.40 Flat foot [pes planus] (acquired), unspecified foot; J84.10 Pulmonary fibrosis, unspecified; M81.0 Age-related osteoporosis without current pathological fracture; E11.9 Type 2 diabetes mellitus without complications; E78.5 Hyperlipidemia, unspecified; Z79.899 Other long term (current) drug therapy
CPT/HCPCS: 36415; 80053; 85025

== ENCOUNTER → 2020-04-20 07:00 | Outpatient (CLI) | payer MEDICARE, SELFPAY ==
[2020-04-20 10:20] LABS: Absolute Lymphocyte Count 1.18 X10^3/uL (0.83-4.51); Absolute Neutrophil Count 5.4 X10^3/uL (2.0-7.7); Basophil# 0.02 X10^3/uL; Basophil% 0.3 % (0-1); Eosinophil# 0.16 X10^3/uL; Eosinophils% 2.2 % (0-5); Hematocrit 40.8 % (37-47); Hemoglobin 12.9 g/dL (12.0-15.0); Lymphocyte # 1.18 X10^3/ul (4.0); Lymphocyte % 16.1 % (19-41); Mean Corp Hgb Conc 31.6 g/dL (32-36); Mean Corpuscular Hgb 32.7 pg (27.0-32.0); Mean Corpuscular Volume 103.3 fL (81-99); Monocyte# 0.51 X10^3/uL; NRBC Flagged by Analyzer 0 % (0-5); Neutrophil # 5.44 X10^3/uL (2.7-7.7); Neutrophil % 74.1 % (47-70); Platelet Count 336 K/mm3 (150-450); RBC Distribution Width CV 13.6 % (11.6-14.6); Red Blood Count 3.95 M/mm3 (4.2-5.4); White Blood Count 7.3 K/mm3 (4.4-11.0)
[2020-04-20 10:29] LABS: ALB/GLOB Ratio 0.9 RATIO (0.9-2.4); AST(SGOT) 17 U/L (15-37); Alanine Aminotransfer ALT/SGPT 22 U/L (13-56); Albumin, Serum 3.6 g/dL (3.2-5.0); Alkaline Phosphatase 76 U/L (45-117); Anion Gap 6 (5-15); BUN 14 mg/dL (7-18); BUN/Creat Ratio 14.7 RATIO (10-20); Calcium,Total 9.8 mg/dL (8.5-10.1); Chloride 106 mmol/L (98-107); Creatinine, Serum 0.95 mg/dL (0.55-1.02); EST Glomerular Filtration Rate 60 mL/min (>60); Est Glom Filt Rate - Afr Amer 73 mL/min (>60); Globulin 4.1 g/dL (2.2-4.2); Glucose 119 mg/dL (74-106); Potassium 4.1 mmol/L (3.5-5.1); Protein, Total 7.7 g/dL (6.4-8.2); Sodium Level 142 mmol/L (136-145)
== END ==
PROVIDERS: PCP Family Medicine Geriatric Medicine; Referring Provider Internal Medicine Rheumatology; Visit Provider Internal Medicine Rheumatology
DX: M06.09 Rheumatoid arthritis without rheumatoid factor, multiple sites (principal); M21.40 Flat foot [pes planus] (acquired), unspecified foot; J84.10 Pulmonary fibrosis, unspecified; M81.0 Age-related osteoporosis without current pathological fracture; E11.9 Type 2 diabetes mellitus without complications; E78.5 Hyperlipidemia, unspecified; Z79.899 Other long term (current) drug therapy
CPT/HCPCS: 36415; 80053; 85025

== ENCOUNTER → 2020-07-14 07:02 | Outpatient (CLI) | payer MEDICARE, SELFPAY ==
[2020-07-14 10:35] LABS: Absolute Neutrophil Count 6.4 X10^3/uL (2.0-7.7); Basophil# 0.03 X10^3/uL; Basophil% 0.4 % (0-1); Eosinophil# 0.12 X10^3/uL; Eosinophils% 1.5 % (0-5); Hematocrit 41.9 % (37-47); Hemoglobin 13.4 g/dL (12.0-15.0); Lymphocyte % 13.5 % (19-41); Mean Corpuscular Hgb 32.7 pg (27.0-32.0); Mean Corpuscular Volume 102.2 fL (81-99); Mean Platelet Vol. 9.4 fl (6.2-12.0); Monocyte# 0.51 X10^3/uL; Monocyte% 6.3 % (0-10); NRBC Flagged by Analyzer 0 % (0-5); Neutrophil # 6.36 X10^3/uL (2.7-7.7); Neutrophil % 77.9 % (47-70); Platelet Count 314 K/mm3 (150-450); RBC Distribution Width CV 13.6 % (11.6-14.6); White Blood Count 8.2 K/mm3 (4.4-11.0)
[2020-07-14 10:51] LABS: AST(SGOT) 15 U/L (15-37); Alanine Aminotransfer ALT/SGPT 20 U/L (13-56); Albumin, Serum 3.8 g/dL (3.2-5.0); Alkaline Phosphatase 81 U/L (45-117); Anion Gap 8 (5-15); BUN 14 mg/dL (7-18); BUN/Creat Ratio 14.2 RATIO (10-20); Calcium,Total 9.8 mg/dL (8.5-10.1); Chloride 105 mmol/L (98-107); Creatinine, Serum 0.98 mg/dL (0.55-1.02); EST Glomerular Filtration Rate 58 mL/min (>60); Est Glom Filt Rate - Afr Amer 70 mL/min (>60); Glucose 113 mg/dL (74-106); Potassium 4.1 mmol/L (3.5-5.1); Protein, Total 7.8 g/dL (6.4-8.2); Sodium Level 140 mmol/L (136-145)
== END ==
PROVIDERS: PCP Family Medicine Geriatric Medicine; Referring Provider Internal Medicine Rheumatology; Visit Provider Internal Medicine Rheumatology
DX: M06.00 Rheumatoid arthritis without rheumatoid factor, unspecified site (principal); M21.40 Flat foot [pes planus] (acquired), unspecified foot; J84.10 Pulmonary fibrosis, unspecified; M81.0 Age-related osteoporosis without current pathological fracture; E11.9 Type 2 diabetes mellitus without complications; E78.5 Hyperlipidemia, unspecified; Z79.899 Other long term (current) drug therapy
CPT/HCPCS: 36415; 80053; 85025

== ENCOUNTER → 2020-10-19 07:10 | Outpatient (CLI) | payer MEDICARE, SELFPAY ==
[2020-10-19 09:59] LABS: Absolute Neutrophil Count 7.6 X10^3/uL (2.0-7.7); Basophil# 0.05 X10^3/uL; Basophil% 0.5 % (0-1); Eosinophil# 0.33 X10^3/uL; Eosinophils% 3.3 % (0-5); Hematocrit 42.1 % (37-47); Lymphocyte % 13.9 % (19-41); Mean Corp Hgb Conc 30.9 g/dL (32-36); Mean Corpuscular Hgb 31.3 pg (27.0-32.0); Mean Corpuscular Volume 101.4 fL (81-99); Mean Platelet Vol. 9.1 fl (6.2-12.0); Monocyte# 0.64 X10^3/uL; Monocyte% 6.4 % (0-10); NRBC Flagged by Analyzer 0 % (0-5); Neutrophil # 7.58 X10^3/uL (2.7-7.7); Neutrophil % 75.5 % (47-70); Platelet Count 379 K/mm3 (150-450); RBC Distribution Width CV 14.7 % (11.6-14.6); RBC Distribution Width SD 54.6 fl (35.1-43.9); Red Blood Count 4.15 M/mm3 (4.2-5.4)
[2020-10-19 10:46] LABS: ALB/GLOB Ratio 0.8 RATIO (0.9-2.4); AST(SGOT) 18 U/L (15-37); Alanine Aminotransfer ALT/SGPT 24 U/L (13-56); Albumin, Serum 3.8 g/dL (3.2-5.0); Alkaline Phosphatase 78 U/L (45-117); Anion Gap 5 (5-15); BUN 15 mg/dL (7-18); BUN/Creat Ratio 15.5 RATIO (10-20); Calcium,Total 9.9 mg/dL (8.5-10.1); Chloride 106 mmol/L (98-107); Creatinine, Serum 0.97 mg/dL (0.55-1.02); EST Glomerular Filtration Rate 59 mL/min (>60); Est Glom Filt Rate - Afr Amer 71 mL/min (>60); Globulin 4.6 g/dL (2.2-4.2); Glucose 123 mg/dL (74-106); Potassium 4.3 mmol/L (3.5-5.1); Protein, Total 8.4 g/dL (6.4-8.2); Sodium Level 139 mmol/L (136-145)
== END ==
PROVIDERS: PCP Family Medicine Geriatric Medicine; Referring Provider Internal Medicine Rheumatology; Visit Provider Internal Medicine Rheumatology
DX: M06.00 Rheumatoid arthritis without rheumatoid factor, unspecified site (principal); M21.40 Flat foot [pes planus] (acquired), unspecified foot; J84.10 Pulmonary fibrosis, unspecified; M81.0 Age-related osteoporosis without current pathological fracture; E11.9 Type 2 diabetes mellitus without complications; E78.5 Hyperlipidemia, unspecified; Z79.899 Other long term (current) drug therapy
CPT/HCPCS: 36415; 80053; 85025

== ENCOUNTER → 2021-01-13 07:00 | Outpatient (CLI) | payer MEDICARE, SELFPAY ==
[2021-01-13 10:29] LABS: Absolute Lymphocyte Count 1.14 X10^3/uL (0.83-4.51); Absolute Neutrophil Count 5.4 X10^3/uL (2.0-7.7); Basophil# 0.02 X10^3/uL; Basophil% 0.3 % (0-1); Eosinophil# 0.11 X10^3/uL; Eosinophils% 1.5 % (0-5); Hematocrit 40.2 % (37-47); Hemoglobin 12.8 g/dL (12.0-15.0); Lymphocyte # 1.14 X10^3/ul (0.83-4.51); Lymphocyte % 15.7 % (19-41); Mean Corp Hgb Conc 31.8 g/dL (32-36); Mean Corpuscular Hgb 32.6 pg (27.0-32.0); Mean Corpuscular Volume 102.3 fL (81-99); Mean Platelet Vol. 9.2 fl (6.2-12.0); Monocyte# 0.62 X10^3/uL; Monocyte% 8.5 % (0-10); NRBC Flagged by Analyzer 0 % (0-5); Neutrophil # 5.36 X10^3/uL (2.7-7.7); Neutrophil % 73.7 % (47-70); Platelet Count 325 K/mm3 (150-450); RBC Distribution Width CV 13.9 % (11.6-14.6); RBC Distribution Width SD 52.5 fl (35.1-43.9); Red Blood Count 3.93 M/mm3 (4.2-5.4); White Blood Count 7.3 K/mm3 (4.4-11.0)
[2021-01-13 11:18] LABS: ALB/GLOB Ratio 0.9 RATIO (0.9-2.4); AST(SGOT) 18 U/L (15-37); Alanine Aminotransfer ALT/SGPT 23 U/L (13-56); Albumin, Serum 3.7 g/dL (3.2-5.0); Alkaline Phosphatase 78 U/L (45-117); Anion Gap 4 (5-15); BUN 15 mg/dL (7-18); BUN/Creat Ratio 16.9 RATIO (10-20); Calcium,Total 9.7 mg/dL (8.5-10.1); Chloride 105 mmol/L (98-107); Creatinine, Serum 0.89 mg/dL (0.55-1.02); EST Glomerular Filtration Rate 65 mL/min (>60); Est Glom Filt Rate - Afr Amer 78 mL/min (>60); Globulin 4.2 g/dL (2.2-4.2); Glucose 96 mg/dL (74-106); Potassium 4.1 mmol/L (3.5-5.1); Protein, Total 7.9 g/dL (6.4-8.2); Sodium Level 139 mmol/L (136-145)
== END ==
PROVIDERS: PCP Family Medicine Geriatric Medicine; Referring Provider Internal Medicine Rheumatology; Visit Provider Internal Medicine Rheumatology
DX: M06.00 Rheumatoid arthritis without rheumatoid factor, unspecified site (principal); Z79.899 Other long term (current) drug therapy; M21.40 Flat foot [pes planus] (acquired), unspecified foot; J84.10 Pulmonary fibrosis, unspecified; M81.0 Age-related osteoporosis without current pathological fracture; E11.9 Type 2 diabetes mellitus without complications; E78.5 Hyperlipidemia, unspecified
CPT/HCPCS: 36415; 80053; 85025

== ENCOUNTER → 2021-02-09 12:03 | Outpatient (CLI) | payer MEDICARE, SELFPAY ==
[2021-02-09 13:29] LABS: Absolute Lymphocyte Count 1.31 X10^3/uL (0.83-4.51); Basophil# 0.03 X10^3/uL; Basophil% 0.5 % (0-1); Eosinophil# 0.16 X10^3/uL; Eosinophils% 2.6 % (0-5); Hematocrit 42.9 % (37-47); Hemoglobin 13.8 g/dL (12.0-15.0); Lymphocyte # 1.31 X10^3/ul (0.83-4.51); Lymphocyte % 21.3 % (19-41); Mean Corp Hgb Conc 32.2 g/dL (32-36); Mean Corpuscular Hgb 32.7 pg (27.0-32.0); Mean Corpuscular Volume 101.7 fL (81-99); Monocyte# 0.61 X10^3/uL; Monocyte% 9.9 % (0-10); NRBC Flagged by Analyzer 0 % (0-5); Neutrophil # 4.02 X10^3/uL (2.7-7.7); Neutrophil % 65.5 % (47-70); Platelet Count 371 K/mm3 (150-450); RBC Distribution Width CV 13.9 % (11.6-14.6); RBC Distribution Width SD 51.7 fl (35.1-43.9); Red Blood Count 4.22 M/mm3 (4.2-5.4); White Blood Count 6.1 K/mm3 (4.4-11.0)
[2021-02-09 14:18] LABS: Vitamin D,25 Hydroxy 73.9 ng/mL
[2021-02-09 14:24] LABS: ALB/GLOB Ratio 0.9 RATIO (0.9-2.4); AST(SGOT) 16 U/L (15-37); Alanine Aminotransfer ALT/SGPT 20 U/L (13-56); Albumin, Serum 4.2 g/dL (3.2-5.0); Alkaline Phosphatase 99 U/L (45-117); Anion Gap 4 (5-15); BUN 16 mg/dL (7-18); BUN/Creat Ratio 16.8 RATIO (10-20); Calcium,Total 10.3 mg/dL (8.5-10.1); Chloride 104 mmol/L (98-107); Creatinine, Serum 0.95 mg/dL (0.55-1.02); EST Glomerular Filtration Rate 60 mL/min (>60); Est Glom Filt Rate - Afr Amer 72 mL/min (>60); Globulin 4.6 g/dL (2.2-4.2); Glucose 143 mg/dL (74-106); Potassium 4.3 mmol/L (3.5-5.1); Protein, Total 8.8 g/dL (6.4-8.2); Sodium Level 137 mmol/L (136-145); Thyroid Stim Hormone (TSH) 2.29 uIU/mL (0.358-3.74)
== END ==
PROVIDERS: PCP Family Medicine Geriatric Medicine; Referring Provider Family Medicine Geriatric Medicine; Visit Provider Family Medicine Geriatric Medicine
DX: E11.9 Type 2 diabetes mellitus without complications (principal); E55.9 Vitamin D deficiency, unspecified; I10 Essential (primary) hypertension
CPT/HCPCS: 36415; 80053; 82306; 84443; 85025

== ENCOUNTER → 2021-04-12 07:15 | Outpatient (CLI) | payer MEDICARE, SELFPAY ==
[2021-04-12 10:06] LABS: Absolute Lymphocyte Count 1.33 X10^3/uL (0.83-4.51); Absolute Neutrophil Count 5.7 X10^3/uL (2.0-7.7); Basophil# 0.04 X10^3/uL; Basophil% 0.5 % (0-1); Eosinophil# 0.18 X10^3/uL; Eosinophils% 2.3 % (0-5); Hematocrit 41.9 % (37-47); Hemoglobin 13.6 g/dL (12.0-15.0); Lymphocyte # 1.33 X10^3/ul (0.83-4.51); Lymphocyte % 16.8 % (19-41); Mean Corp Hgb Conc 32.5 g/dL (32-36); Mean Corpuscular Hgb 32.9 pg (27.0-32.0); Mean Corpuscular Volume 101.5 fL (81-99); Monocyte# 0.61 X10^3/uL; Monocyte% 7.7 % (0-10); NRBC Flagged by Analyzer 0 % (0-5); Neutrophil # 5.72 X10^3/uL (2.7-7.7); Neutrophil % 72.4 % (47-70); Platelet Count 343 K/mm3 (150-450); RBC Distribution Width CV 13.6 % (11.6-14.6); RBC Distribution Width SD 50.9 fl (35.1-43.9); Red Blood Count 4.13 M/mm3 (4.2-5.4); White Blood Count 7.9 K/mm3 (4.4-11.0)
[2021-04-12 10:40] LABS: ALB/GLOB Ratio 0.9 RATIO (0.9-2.4); AST(SGOT) 20 U/L (15-37); Alanine Aminotransfer ALT/SGPT 21 U/L (13-56); Albumin, Serum 3.9 g/dL (3.2-5.0); Alkaline Phosphatase 86 U/L (45-117); Anion Gap 4 (5-15); BUN 18 mg/dL (7-18); BUN/Creat Ratio 18.2 RATIO (10-20); Calcium,Total 10.1 mg/dL (8.5-10.1); Chloride 106 mmol/L (98-107); Creatinine, Serum 0.99 mg/dL (0.55-1.02); EST Glomerular Filtration Rate 57 mL/min (>60); Est Glom Filt Rate - Afr Amer 69 mL/min (>60); Globulin 4.4 g/dL (2.2-4.2); Glucose 127 mg/dL (74-106); Potassium 4.3 mmol/L (3.5-5.1); Protein, Total 8.3 g/dL (6.4-8.2); Sodium Level 139 mmol/L (136-145)
== END ==
PROVIDERS: PCP Family Medicine Geriatric Medicine; Referring Provider Internal Medicine Rheumatology; Visit Provider Internal Medicine Rheumatology
DX: M06.00 Rheumatoid arthritis without rheumatoid factor, unspecified site (principal); M21.40 Flat foot [pes planus] (acquired), unspecified foot; J84.10 Pulmonary fibrosis, unspecified; M81.0 Age-related osteoporosis without current pathological fracture; E11.9 Type 2 diabetes mellitus without complications; E78.5 Hyperlipidemia, unspecified; Z79.899 Other long term (current) drug therapy
CPT/HCPCS: 36415; 80053; 85025

== ENCOUNTER 2021-07-12 07:04 | Outpatient (CLI) | payer MEDICARE, SELFPAY ==
[2021-07-12 10:04] LABS: Absolute Lymphocyte Count 1.39 X10^3/uL (0.83-4.51); Absolute Neutrophil Count 7.7 X10^3/uL (2.0-7.7); Basophil# 0.04 X10^3/uL; Basophil% 0.4 % (0-1); Eosinophil# 0.15 X10^3/uL; Eosinophils% 1.5 % (0-5); Hematocrit 41.3 % (37-47); Hemoglobin 13.2 g/dL (12.0-15.0); Lymphocyte # 1.39 X10^3/ul (0.83-4.51); Mean Corpuscular Hgb 32.2 pg (27.0-32.0); Mean Corpuscular Volume 100.7 fL (81-99); Mean Platelet Vol. 8.9 fl (6.2-12.0); Monocyte# 0.56 X10^3/uL; Monocyte% 5.7 % (0-10); NRBC Flagged by Analyzer 0 % (0-5); Neutrophil # 7.72 X10^3/uL (2.7-7.7); Platelet Count 329 K/mm3 (150-450); RBC Distribution Width CV 13.6 % (11.6-14.6); RBC Distribution Width SD 50.1 fl (35.1-43.9); White Blood Count 9.9 K/mm3 (4.4-11.0)
[2021-07-12 10:25] LABS: ALB/GLOB Ratio 0.9 RATIO (0.9-2.4); AST(SGOT) 20 U/L (15-37); Alanine Aminotransfer ALT/SGPT 21 U/L (13-56); Albumin, Serum 3.7 g/dL (3.2-5.0); Alkaline Phosphatase 92 U/L (45-117); Anion Gap 5 (5-15); BUN 13 mg/dL (7-18); BUN/Creat Ratio 13.4 RATIO (10-20); Calcium,Total 9.9 mg/dL (8.5-10.1); Chloride 105 mmol/L (98-107); Creatinine, Serum 0.97 mg/dL (0.55-1.02); EST Glomerular Filtration Rate 58 mL/min (>60); Est Glom Filt Rate - Afr Amer 71 mL/min (>60); Globulin 4.3 g/dL (2.2-4.2); Glucose 141 mg/dL (74-106); Potassium 4.2 mmol/L (3.5-5.1); Sodium Level 138 mmol/L (136-145)
== END 2021-07-12 23:59 | disposition short-term general hospital (02) ==
PROVIDERS: PCP Family Medicine Geriatric Medicine; Referring Provider Internal Medicine Rheumatology; Visit Provider Internal Medicine Rheumatology
DX: M06.00 Rheumatoid arthritis without rheumatoid factor, unspecified site (principal); J84.10 Pulmonary fibrosis, unspecified; E11.9 Type 2 diabetes mellitus without complications; M21.40 Flat foot [pes planus] (acquired), unspecified foot; M81.0 Age-related osteoporosis without current pathological fracture; E78.5 Hyperlipidemia, unspecified; Z79.899 Other long term (current) drug therapy
CPT/HCPCS: 36415; 80053; 85025

== ENCOUNTER → 2021-10-04 | Outpatient (CLI) | payer MEDICARE, SELFPAY ==
[2021-10-04 10:10] LABS: Absolute Neutrophil Count 6.3 X10^3/uL (2.0-7.7); Basophil# 0.02 X10^3/uL; Basophil% 0.2 % (0-1); Eosinophil# 0.14 X10^3/uL; Eosinophils% 1.7 % (0-5); Hematocrit 41.6 % (37-47); Hemoglobin 13.5 g/dL (12.0-15.0); Lymphocyte % 15.5 % (19-41); Mean Corp Hgb Conc 32.5 g/dL (32-36); Mean Corpuscular Hgb 32.8 pg (27.0-32.0); Mean Corpuscular Volume 101.2 fL (81-99); Monocyte% 7.1 % (0-10); NRBC Flagged by Analyzer 0 % (0-5); Neutrophil # 6.31 X10^3/uL (2.7-7.7); Neutrophil % 75.1 % (47-70); Platelet Count 348 K/mm3 (150-450); RBC Distribution Width CV 13.3 % (11.6-14.6); RBC Distribution Width SD 49.1 fl (35.1-43.9); Red Blood Count 4.11 M/mm3 (4.2-5.4); White Blood Count 8.4 K/mm3 (4.4-11.0)
[2021-10-04 10:30] LABS: ALB/GLOB Ratio 0.9 RATIO (0.9-2.4); AST(SGOT) 18 U/L (15-37); Alanine Aminotransfer ALT/SGPT 26 U/L (13-56); Albumin, Serum 3.8 g/dL (3.2-5.0); Alkaline Phosphatase 88 U/L (45-117); Anion Gap 3 (5-15); BUN 17 mg/dL (7-18); BUN/Creat Ratio 17.5 RATIO (10-20); Calcium,Total 9.8 mg/dL (8.5-10.1); Chloride 104 mmol/L (98-107); Creatinine, Serum 0.97 mg/dL (0.55-1.02); EST Glomerular Filtration Rate 59 mL/min (>60); Est Glom Filt Rate - Afr Amer 71 mL/min (>60); Globulin 4.2 g/dL (2.2-4.2); Glucose 126 mg/dL (74-106); Potassium 4.1 mmol/L (3.5-5.1); Sodium Level 139 mmol/L (136-145)
== END | disposition home or self-care (01) ==
LOC: MTLAB 07:02
PROVIDERS: PCP Family Medicine Geriatric Medicine; Referring Provider Internal Medicine Rheumatology; Visit Provider Internal Medicine Rheumatology
DX: M06.00 Rheumatoid arthritis without rheumatoid factor, unspecified site (principal); J84.10 Pulmonary fibrosis, unspecified; E11.9 Type 2 diabetes mellitus without complications; M21.40 Flat foot [pes planus] (acquired), unspecified foot; M81.0 Age-related osteoporosis without current pathological fracture; E78.5 Hyperlipidemia, unspecified
CPT/HCPCS: 36415; 80053; 85025

== ENCOUNTER → 2021-12-27 | Outpatient (CLI) | payer MEDICARE, SELFPAY ==
[2021-12-27 10:00] LABS: Absolute Lymphocyte Count 1.31 X10^3/uL (0.83-4.51); Absolute Neutrophil Count 6.1 X10^3/uL (2.0-7.7); Basophil# 0.02 X10^3/uL; Basophil% 0.2 % (0-1); Eosinophil# 0.14 X10^3/uL; Eosinophils% 1.7 % (0-5); Hematocrit 41.2 % (37-47); Hemoglobin 13.4 g/dL (12.0-15.0); Lymphocyte # 1.31 X10^3/ul (0.83-4.51); Lymphocyte % 16.3 % (19-41); Mean Corp Hgb Conc 32.5 g/dL (32-36); Mean Corpuscular Hgb 32.8 pg (27.0-32.0); Mean Platelet Vol. 8.9 fl (6.2-12.0); Monocyte# 0.46 X10^3/uL; Monocyte% 5.7 % (0-10); NRBC Flagged by Analyzer 0 % (0-5); Neutrophil # 6.08 X10^3/uL (2.7-7.7); Neutrophil % 75.9 % (47-70); Platelet Count 351 K/mm3 (150-450); RBC Distribution Width CV 13.6 % (11.6-14.6); RBC Distribution Width SD 50.5 fl (35.1-43.9); Red Blood Count 4.08 M/mm3 (4.2-5.4)
[2021-12-27 10:14] LABS: ALB/GLOB Ratio 0.9 RATIO (0.9-2.4); AST(SGOT) 19 U/L (15-37); Alanine Aminotransfer ALT/SGPT 19 U/L (13-56); Albumin, Serum 3.7 g/dL (3.2-5.0); Alkaline Phosphatase 76 U/L (45-117); Anion Gap 5 (5-15); BUN 16 mg/dL (7-18); BUN/Creat Ratio 16.2 RATIO (10-20); Calcium,Total 10.2 mg/dL (8.5-10.1); Chloride 105 mmol/L (98-107); Creatinine, Serum 0.98 mg/dL (0.55-1.02); EST Glomerular Filtration Rate 57 mL/min (>60); Est Glom Filt Rate - Afr Amer 70 mL/min (>60); Globulin 4.3 g/dL (2.2-4.2); Glucose 117 mg/dL (74-106); Potassium 4.2 mmol/L (3.5-5.1); Sodium Level 140 mmol/L (136-145)
== END | disposition home or self-care (01) ==
PROVIDERS: PCP Family Medicine Geriatric Medicine; Referring Provider Internal Medicine Rheumatology; Visit Provider Internal Medicine Rheumatology
DX: M06.00 Rheumatoid arthritis without rheumatoid factor, unspecified site (principal); J84.10 Pulmonary fibrosis, unspecified; E11.9 Type 2 diabetes mellitus without complications; M21.40 Flat foot [pes planus] (acquired), unspecified foot; M81.0 Age-related osteoporosis without current pathological fracture; E78.5 Hyperlipidemia, unspecified; Z79.899 Other long term (current) drug therapy
CPT/HCPCS: 36415; 80053; 85025

== ENCOUNTER → 2022-02-22 | Outpatient (CLI) | payer MEDICARE, SELFPAY ==
[2022-02-22 12:03] LABS: Absolute Neutrophil Count 4.7 X10^3/uL (2.0-7.7); Basophil# 0.03 X10^3/uL; Basophil% 0.4 % (0-1); Eosinophil# 0.13 X10^3/uL; Eosinophils% 1.8 % (0-5); Hemoglobin 13.1 g/dL (12.0-15.0); Lymphocyte % 25.1 % (19-41); Mean Corp Hgb Conc 32.8 g/dL (32-36); Mean Corpuscular Hgb 32.5 pg (27.0-32.0); Mean Corpuscular Volume 99.3 fL (81-99); Mean Platelet Vol. 8.7 fl (6.2-12.0); Monocyte# 0.51 X10^3/uL; Monocyte% 7.1 % (0-10); NRBC Flagged by Analyzer 0 % (0-5); Neutrophil # 4.69 X10^3/uL (2.7-7.7); Neutrophil % 65.3 % (47-70); Platelet Count 326 K/mm3 (150-450); RBC Distribution Width CV 13.2 % (11.6-14.6); RBC Distribution Width SD 47.7 fl (35.1-43.9); Red Blood Count 4.03 M/mm3 (4.2-5.4); White Blood Count 7.2 K/mm3 (4.4-11.0)
[2022-02-22 12:20] LABS: Vitamin D,25 Hydroxy 62.6 ng/mL
[2022-02-22 12:29] LABS: ALB/GLOB Ratio 0.9 RATIO (0.9-2.4); AST(SGOT) 15 U/L (15-37); Alanine Aminotransfer ALT/SGPT 18 U/L (13-56); Albumin, Serum 3.8 g/dL (3.2-5.0); Alkaline Phosphatase 77 U/L (45-117); Anion Gap 8 (5-15); BUN 14 mg/dL (7-18); BUN/Creat Ratio 13.3 RATIO (10-20); Calcium,Total 9.9 mg/dL (8.5-10.1); Chloride 102 mmol/L (98-107); Creatinine, Serum 1.05 mg/dL (0.55-1.02); EST Glomerular Filtration Rate 53 mL/min (>60); Est Glom Filt Rate - Afr Amer 65 mL/min (>60); Globulin 4.3 g/dL (2.2-4.2); Glucose 149 mg/dL (74-106); Potassium 4.5 mmol/L (3.5-5.1); Protein, Total 8.1 g/dL (6.4-8.2); Sodium Level 137 mmol/L (136-145); Thyroid Stim Hormone (TSH) 3.16 uIU/mL (0.358-3.74)
== END | disposition home or self-care (01) ==
LOC: POLAB3 09:42
PROVIDERS: PCP Family Medicine Geriatric Medicine; Visit Provider Family Medicine Geriatric Medicine
DX: I10 Essential (primary) hypertension (principal); E11.9 Type 2 diabetes mellitus without complications; E55.9 Vitamin D deficiency, unspecified
CPT/HCPCS: 36415; 80053; 82306; 84443; 85025

== ENCOUNTER → 2022-03-28 | Outpatient (CLI) | payer MEDICARE, SELFPAY ==
[2022-03-28 10:00] LABS: Absolute Lymphocyte Count 1.35 X10^3/uL (0.83-4.51); Basophil# 0.03 X10^3/uL; Basophil% 0.4 % (0-1); Eosinophil# 0.19 X10^3/uL; Eosinophils% 2.3 % (0-5); Hematocrit 39.5 % (37-47); Hemoglobin 13.1 g/dL (12.0-15.0); Lymphocyte # 1.35 X10^3/ul (0.83-4.51); Lymphocyte % 16.6 % (19-41); Mean Corp Hgb Conc 33.2 g/dL (32-36); Mean Corpuscular Hgb 33.4 pg (27.0-32.0); Mean Corpuscular Volume 100.8 fL (81-99); Mean Platelet Vol. 8.3 fl (6.2-12.0); Monocyte# 0.48 X10^3/uL; Monocyte% 5.9 % (0-10); NRBC Flagged by Analyzer 0 % (0-5); Neutrophil # 6.04 X10^3/uL (2.7-7.7); Neutrophil % 74.6 % (47-70); Platelet Count 349 K/mm3 (150-450); RBC Distribution Width CV 13.3 % (11.6-14.6); RBC Distribution Width SD 49.1 fl (35.1-43.9); Red Blood Count 3.92 M/mm3 (4.2-5.4); White Blood Count 8.1 K/mm3 (4.4-11.0)
[2022-03-28 10:31] LABS: ALB/GLOB Ratio 0.8 RATIO (0.9-2.4); AST(SGOT) 19 U/L (15-37); Alanine Aminotransfer ALT/SGPT 19 U/L (13-56); Albumin, Serum 3.5 g/dL (3.2-5.0); Alkaline Phosphatase 92 U/L (45-117); Anion Gap 8 (5-15); BUN 16 mg/dL (7-18); BUN/Creat Ratio 15.8 RATIO (10-20); Calcium,Total 9.7 mg/dL (8.5-10.1); Chloride 101 mmol/L (98-107); Creatinine, Serum 1.01 mg/dL (0.55-1.02); EST Glomerular Filtration Rate 56 mL/min (>60); Est Glom Filt Rate - Afr Amer 68 mL/min (>60); Globulin 4.5 g/dL (2.2-4.2); Glucose 126 mg/dL (74-106); Potassium 4.1 mmol/L (3.5-5.1); Sodium Level 138 mmol/L (136-145)
== END | disposition home or self-care (01) ==
PROVIDERS: PCP Family Medicine Geriatric Medicine; Referring Provider Internal Medicine Rheumatology; Visit Provider Internal Medicine Rheumatology
DX: M06.00 Rheumatoid arthritis without rheumatoid factor, unspecified site (principal); J84.10 Pulmonary fibrosis, unspecified; E11.9 Type 2 diabetes mellitus without complications; M21.40 Flat foot [pes planus] (acquired), unspecified foot; M81.0 Age-related osteoporosis without current pathological fracture; E78.5 Hyperlipidemia, unspecified; Z79.899 Other long term (current) drug therapy
CPT/HCPCS: 36415; 80053; 85025

== ENCOUNTER → 2022-06-27 | Outpatient (CLI) | payer MEDICARE, SELFPAY ==
[2022-06-27 09:59] LABS: Absolute Lymphocyte Count 1.33 X10^3/uL (0.83-4.51); Absolute Neutrophil Count 3.4 X10^3/uL (2.0-7.7); Basophil# 0.03 X10^3/uL; Basophil% 0.6 % (0-1); Eosinophil# 0.12 X10^3/uL; Eosinophils% 2.2 % (0-5); Hematocrit 43.4 % (37-47); Hemoglobin 13.8 g/dL (12.0-15.0); Lymphocyte # 1.33 X10^3/ul (0.83-4.51); Lymphocyte % 24.8 % (19-41); Mean Corp Hgb Conc 31.8 g/dL (32-36); Mean Corpuscular Hgb 32.1 pg (27.0-32.0); Mean Corpuscular Volume 100.9 fL (81-99); Mean Platelet Vol. 8.6 fl (6.2-12.0); Monocyte# 0.46 X10^3/uL; Monocyte% 8.6 % (0-10); NRBC Flagged by Analyzer 0 % (0-5); Neutrophil # 3.42 X10^3/uL (2.7-7.7); Neutrophil % 63.6 % (47-70); Platelet Count 345 K/mm3 (150-450); RBC Distribution Width CV 14.4 % (11.6-14.6); RBC Distribution Width SD 52.5 fl (35.1-43.9); White Blood Count 5.4 K/mm3 (4.4-11.0)
[2022-06-27 10:18] LABS: ALB/GLOB Ratio 0.9 RATIO (0.9-2.4); AST(SGOT) 25 U/L (15-37); Alanine Aminotransfer ALT/SGPT 19 U/L (13-56); Alkaline Phosphatase 87 U/L (45-117); Anion Gap 5 (5-15); BUN 14 mg/dL (7-18); BUN/Creat Ratio 14.1 RATIO (10-20); Chloride 105 mmol/L (98-107); Creatinine, Serum 0.99 mg/dL (0.55-1.02); EST Glomerular Filtration Rate 57 mL/min (>60); Est Glom Filt Rate - Afr Amer 69 mL/min (>60); Globulin 4.3 g/dL (2.2-4.2); Glucose 126 mg/dL (74-106); Potassium 4.8 mmol/L (3.5-5.1); Protein, Total 8.3 g/dL (6.4-8.2); Sodium Level 140 mmol/L (136-145)
== END | disposition home or self-care (01) ==
LOC: MTLAB 07:06
PROVIDERS: PCP Family Medicine Geriatric Medicine; Referring Provider Internal Medicine Rheumatology; Visit Provider Internal Medicine Rheumatology
DX: M06.00 Rheumatoid arthritis without rheumatoid factor, unspecified site (principal); J84.10 Pulmonary fibrosis, unspecified; E11.9 Type 2 diabetes mellitus without complications; M21.40 Flat foot [pes planus] (acquired), unspecified foot; M81.0 Age-related osteoporosis without current pathological fracture; E78.5 Hyperlipidemia, unspecified; Z79.899 Other long term (current) drug therapy
CPT/HCPCS: 36415; 80053; 85025

== ENCOUNTER → 2022-09-19 | Outpatient (CLI) | payer MEDICARE, SELFPAY ==
[2022-09-19 09:56] LABS: Absolute Neutrophil Count 4.5 X10^3/uL (2.0-7.7); Basophil# 0.03 X10^3/uL; Basophil% 0.5 % (0-1); Eosinophil# 0.11 X10^3/uL; Eosinophils% 1.7 % (0-5); Hematocrit 41.3 % (37-47); Hemoglobin 13.3 g/dL (12.0-15.0); Lymphocyte % 20.3 % (19-41); Mean Corp Hgb Conc 32.2 g/dL (32-36); Mean Corpuscular Hgb 32.5 pg (27.0-32.0); Mean Platelet Vol. 8.7 fl (6.2-12.0); Monocyte# 0.49 X10^3/uL; Monocyte% 7.7 % (0-10); NRBC Flagged by Analyzer 0 % (0-5); Neutrophil # 4.46 X10^3/uL (2.7-7.7); Neutrophil % 69.6 % (47-70); Platelet Count 347 K/mm3 (150-450); RBC Distribution Width CV 13.8 % (11.6-14.6); RBC Distribution Width SD 50.7 fl (35.1-43.9); Red Blood Count 4.09 M/mm3 (4.2-5.4); White Blood Count 6.4 K/mm3 (4.4-11.0)
[2022-09-19 10:04] LABS: ALB/GLOB Ratio 0.8 RATIO (0.9-2.4); AST(SGOT) 24 U/L (15-37); Alanine Aminotransfer ALT/SGPT 23 U/L (13-56); Albumin, Serum 3.7 g/dL (3.2-5.0); Alkaline Phosphatase 92 U/L (45-117); Anion Gap 3 (5-15); BUN 14 mg/dL (7-18); BUN/Creat Ratio 13.7 RATIO (10-20); Calcium,Total 9.6 mg/dL (8.5-10.1); Chloride 104 mmol/L (98-107); Creatinine, Serum 1.02 mg/dL (0.55-1.02); EST Glomerular Filtration Rate 55 mL/min (>60); Est Glom Filt Rate - Afr Amer 67 mL/min (>60); Globulin 4.4 g/dL (2.2-4.2); Glucose 115 mg/dL (74-106); Potassium 3.8 mmol/L (3.5-5.1); Protein, Total 8.1 g/dL (6.4-8.2); Sodium Level 137 mmol/L (136-145)
== END | disposition home or self-care (01) ==
LOC: MTLAB 07:04
PROVIDERS: PCP Family Medicine Geriatric Medicine; Referring Provider Internal Medicine Rheumatology; Visit Provider Internal Medicine Rheumatology
DX: M06.00 Rheumatoid arthritis without rheumatoid factor, unspecified site (principal); J84.10 Pulmonary fibrosis, unspecified; E11.9 Type 2 diabetes mellitus without complications; M21.40 Flat foot [pes planus] (acquired), unspecified foot; M81.0 Age-related osteoporosis without current pathological fracture; E78.5 Hyperlipidemia, unspecified; Z79.899 Other long term (current) drug therapy
CPT/HCPCS: 36415; 80053; 85025

== ENCOUNTER → 2022-12-12 | Outpatient (CLI) | payer MEDICARE, SELFPAY ==
[2022-12-12 09:59] LABS: Absolute Lymphocyte Count 1.37 X10^3/uL (0.83-4.51); Absolute Neutrophil Count 4.8 X10^3/uL (2.0-7.7); Basophil# 0.02 X10^3/uL; Basophil% 0.3 % (0-1); Eosinophil# 0.18 X10^3/uL; Eosinophils% 2.6 % (0-5); Hematocrit 40.7 % (37-47); Hemoglobin 12.9 g/dL (12.0-15.0); Lymphocyte # 1.37 X10^3/ul (0.83-4.51); Lymphocyte % 19.5 % (19-41); Mean Corp Hgb Conc 31.7 g/dL (32-36); Mean Corpuscular Hgb 32.3 pg (27.0-32.0); Mean Platelet Vol. 8.9 fl (6.2-12.0); Monocyte# 0.68 X10^3/uL; Monocyte% 9.7 % (0-10); NRBC Flagged by Analyzer 0 % (0-5); Neutrophil # 4.76 X10^3/uL (2.7-7.7); Neutrophil % 67.6 % (47-70); Platelet Count 312 K/mm3 (150-450); RBC Distribution Width CV 14.4 % (11.6-14.6); RBC Distribution Width SD 53.7 fl (35.1-43.9); Red Blood Count 3.99 M/mm3 (4.2-5.4)
[2022-12-12 10:45] LABS: ALB/GLOB Ratio 0.8 RATIO (0.9-2.4); AST(SGOT) 22 U/L (15-37); Alanine Aminotransfer ALT/SGPT 22 U/L (13-56); Albumin, Serum 3.6 g/dL (3.2-5.0); Alkaline Phosphatase 83 U/L (45-117); Anion Gap 4 (5-15); BUN 10 mg/dL (7-18); BUN/Creat Ratio 10.7 RATIO (10-20); Calcium,Total 9.6 mg/dL (8.5-10.1); Chloride 107 mmol/L (98-107); Creatinine, Serum 0.93 mg/dL (0.55-1.02); EST Glomerular Filtration Rate 61 mL/min (>60); Est Glom Filt Rate - Afr Amer 74 mL/min (>60); Globulin 4.3 g/dL (2.2-4.2); Glucose 127 mg/dL (74-106); Potassium 4.2 mmol/L (3.5-5.1); Protein, Total 7.9 g/dL (6.4-8.2); Sodium Level 138 mmol/L (136-145)
== END | disposition home or self-care (01) ==
PROVIDERS: PCP Family Medicine Geriatric Medicine; Referring Provider Internal Medicine Rheumatology; Visit Provider Internal Medicine Rheumatology
DX: M06.00 Rheumatoid arthritis without rheumatoid factor, unspecified site (principal); Z79.899 Other long term (current) drug therapy
CPT/HCPCS: 36415; 80053; 85025

== ENCOUNTER 2023-01-19 09:37 | Emergency (ER) | payer MEDICARE, SELFPAY ==
[2023-01-19 09:38] VITALS: BP 131/84; PULSE 72; RESP 14; TEMP 36.6; O2SAT 100
--- NOTE | 2023-01-19 10:22 | CT_ITS ---
STUDY: CT ABDOMEN AND PELVIS WITH CONTRAST REASON FOR EXAM: Female, 82 years old. History of constipation. Comparison is made with prior study dated March 21, 2014. RADIATION DOSAGE (If Supplied By Facility): CTDIvol = ( 11.57 ) mGy, DLP = ( 288.62 ) mGycm TECHNIQUE: Transaxial images were obtained from the dome of the diaphragm to the symphysis pubis without oral contrast. IV 100mL Isovue-300 was administered. Sagittal and coronal images were reconstructed. Individualized dose optimization techniques were used for this CT. COMPARISON: None. FINDINGS: Mild increased markings at the lung bases suggestive of scarring more prominent in the left lower lobe. Coronary artery calcification. Normal liver. Normal gallbladder and extrahepatic biliary system. Normal spleen. Normal pancreas. Normal bilateral adrenal glands. Normal right kidney. Normal left kidney. Normal visualized stomach. Normal small intestine. Large amount of fecal material is seen throughout the colon. The appendix is visualized and appears normal. There is diffuse atherosclerotic calcification of the abdominal aorta, without a demonstrated aneurysm. Normal inferior vena cava. Normal retroperitoneum. Normal urinary bladder. There is absence of the uterus consistent with a prior hysterectomy. Normal abdominal wall. There are mild degenerative changes of the visualized lumbar spine. Loss of height of the superior endplate of the L2 and L3 vertebrae. The patient is status post left total hip replacement causing artifacts in the pelvis. CT/Abdomen/Pelvis W IV Cont ONLY IMPRESSION: Large amount of fecal material is seen in the colon. Stable scarring at the lung bases. Electronically Signed: Dae Fitzgerald MD at 11:57 EDT ,
--- NOTE | 2023-01-19 10:23 | ED.VIS.GI ---
HPI HPI - GI History of Present Illness Chief Complaint: Constipation Narrative Narrative: 82-year-old female presenting with constipation since Monday. She states she normally has bowel movements every day. She is having some right-sided abdominal pain today. She tried MiraLAX and prune juice nothing seems to be working. She denies diarrhea. Patient states she is urinating frequently but has no dysuria or hematuria. No nausea or vomiting. No history of abdominal surgeries. PFSH [facility] Medical History Diabetes High cholesterol Osteoarthritis Rheumatoid arthritis Home Medications atorvastatin 40 mg tablet 40 mg PO QHS 07/25/14 [History Last Taken 07/24/14 18:00] calcium carbonate 600 mg calcium (1,500 mg) tablet (Caltrate 600) 600 mg PO DAILY@0800 07/25/14 [History Last Taken 07/24/14 08:00] cholecalciferol (vitamin D3) 25 mcg (1,000 unit) tablet (Vitamin D3) 2,000 unit PO DAILY 07/25/14 [History Last Taken 07/24/14 08:00] leflunomide 10 mg tablet (Arava) 10 mg PO DAILY 07/25/14 [History Last Taken 07/24/14 08:00] pqtszmfqvvyu-Yi-gyau-minerals (Multiple Vitamin, Womens tablet) 1 ea PO DAILY 07/25/14 [History Last Taken 07/24/14 08:00] acetaminophen 325 mg tablet (Tylenol) 650 mg (2 x 325 mg) PO Q6H PRN PRN Mild Pain ##0 08/06/14 [Rx Last Taken Unknown] hydrocodone-acetaminophen 5-325mg 5mg-325mg 1 tab PO Q6H PRN PRN Pain ##30 08/06/14 [Rx Last Taken Unknown] iron aspgl and ps cmplx 150 mg-vit C 50 mg-succinic acid 50 mg capsule (Ferrex) 150 mg (1.5 x 150-50-50 mg) PO DAILYCM ##30 08/06/14 [Rx Last Taken Unknown] metformin 500 mg tablet 500 mg PO DAILYCM ##30 08/06/14 [Rx Last Taken Unknown] peg 3350-electrolytes 236 gram-22.74 gram-6.74 gram-5.86 gram solution (Golytely) 240 ml PO Q10M PRN PRN constipation #4,000 mL 01/19/23 [Rx Last Taken Unknown] Allergy/AdvReac Type Severity Reaction Status Date / Time alendronate sodium Allergy Anaphylaxis Verified 01/19/23 09:40 [From Fosamax] Penicillins Allergy Swelling Verified 01/19/23 09:40 Social History Smoking Status: Never smoker ROS ROS ED Constitutional Constitutional ED: Denies chills, fever(s) or sweats Eyes Eyes: Denies blurry vision or change in vision ENT ENT ED: Denies ear pain or sore throat Cardiovascular Cardiovascular: Denies chest pain, palpitations or racing heartbeat Respiratory/Chest Respiratory/Chest: Denies cough, dyspnea or sputum Gastrointestinal Gastrointestinal: Reports abdominal pain and constipation; Denies diarrhea, nausea or vomiting Genitourinary Genitourinary ED: Denies dysuria, hematuria or urinary frequency Musculoskeletal Musculoskeletal: Denies arthralgias, myalgias or neck pain Integumentary Denies abscess, Abrasions or rash Neurologic Neurologic: Denies headache(s), paresthesias or weakness Psychiatric Psychiatric: Denies anxiety, depression, suicidal ideation or suicidal thoughts Endocrine Endocrinology: Denies polydipsia or polyuria EXAM Physical Exam Const Vital Signs: 01/19/23 09:38 01/19/23 13:37 01/19/23 14:53 Temperature 97.8 F Temperature Source Temporal Pulse Rate 72 Respiratory Rate 14 18 18 Blood Pressure 131/84 H Blood Pressure Mean 99 Pulse Ox 100 Oxygen Delivery Method Room Air Positive well nourished General Appearance ED: NAD HEENT Reports moist mucous membranes normocephalic and atraumatic Eyes PERRL and EOMs intact bilaterally Resp normal respiratory effort Effort and Inspection: Negative for respiratory distress Cardio regular rate and regular rhythm GI Palpation: tender RLQ and RUQ Neuro CN's II-XII intact bilaterally, moves all extremities and no sensory deficits noted Sensorium / Orientation: alert Psych mental status grossly normal and thought process normal Skin no wounds MDM MDM MDM Narrative Medical decision making narrative: 82-year-old female with constipation for the last 4 days. She has been using MiraLAX without relief. She is making urine and actually complains of urinary frequency. Differential includes UTI, pyelonephritis, diverticulitis, constipation, electrolyte abnormalities, dehydration, bowel obstruction, malignancy. CBC will be obtained to assess white blood cell count, hemoglobin, platelets. CMP to assess liver function, renal function, electrolytes. Lipase to assess for pancreatitis. Urinalysis to assess for UTI. She declines analgesia. Will obtain a CT of the abdomen with contrast. Blood work unremarkable. CT of the abdomen pelvis shows constipation. Patient given a soapsuds enema with some relief. She states that MiraLAX was not working so I am going to put her on GoLytely. Return precautions were discussed. Impression: 1. Constipation Lab Data Attestation: I reviewed the patient's lab results. Labs: Laboratory Results - last 24 hr 01/19/23 10:40 WBC 7.2 RBC 3.85 L Hgb 12.4 Hct 38.6 MCV 100.3 H MCH 32.2 H MCHC 32.1 RDW Std Deviation 51.6 H RDW Coeff of Ed 14.3 Plt Count 346 MPV 8.8 Immature Gran % (Auto) 0.400 Neut % (Auto) 68.4 Lymph % (Auto) 19.9 [place] % (Auto) 8.5 Eos % (Auto) 2.5 Baso % (Auto) 0.3 Absolute Neuts (auto) 4.9 Absolute Lymphs (auto) 1.43 Nucleated RBC % 0 Sodium 133 L Potassium 4.8 Chloride 101 Carbon Dioxide 29.0 Anion Gap 3 L BUN 11 Creatinine 0.96 Est GFR (MDRD) Af Amer 72 Est GFR (MDRD) Non-Af 59 L BUN/Creatinine Ratio 11.5 Glucose 182 H Calcium 9.9 Total Bilirubin 0.70 AST 27 ALT 20 Alkaline Phosphatase 82 Total Protein 7.7 Albumin 3.4 Globulin 4.3 H Albumin/Globulin Ratio 0.8 L Lipase 31 Urine Color Yellow Urine Clarity Clear Urine pH 7.0 Ur Specific [place] 1.010 Urine Protein 15 H Urine Glucose (UA) Normal Urine Ketones Negative Urine Occult Blood 25 H Urine Nitrite Negative Urine Bilirubin Negative Urine Urobilinogen Normal Ur Leukocyte Esterase Negative Urine RBC 0-5 SEEN Urine WBC 0 SEEN Ur Squamous Epith Cells 0 SEEN Urine Bacteria 0 SEEN Urine Mucus 0 SEEN Radiography Diagnostic Testing: Clinical Impression(s) from Imaging Studies Abdomen/Pelvis CT 01/19/23 10:22 IMPRESSION: Large amount of fecal material is seen in the colon. Stable scarring at the lung bases. Electronically Signed: Dae Fitzgerald MD at 11:57 EDT , Discharge Plan Triage Chief Complaint: Constipation ED Provider: Walker Christiansen Dx/Rx/DC Orders Instructions: ED Constipation (Adult) Prescriptions: New peg 3350-electrolytes [Golytely] 236-22.74-6.74 -5.86 gram recon soln 240 ml PO Q10M PRN PRN (Reason: constipation) Qty: 4000 0RF Rx Instructions: until fecal effluent is clear No Action atorvastatin 40 MG tablet 40 mg PO QHS Patient Comments: treatment of high cholesterol leflunomide [Arava] 10 MG tablet 10 mg PO DAILY Patient Comments: ARTHRITIS calcium carbonate [Caltrate 600] 600 MG tablet 600 mg PO DAILY@0800 Patient Comments: supplement wbeeukhshkcq-Dz-yyrl-minerals [Multiple Vitamin, Womens] 1 EACH tablet 1 ea PO DAILY Patient Comments: SUPPLEMENT cholecalciferol (vitamin D3) [Vitamin D3] 1,000 UNIT tablet 2,000 unit PO DAILY Patient Comments: supplement metformin 500 MG tablet 500 mg PO DAILYCM Qty: 30 0RF Patient Comments: treatment of beatrice blood sugar acetaminophen [Tylenol] 325 MG tablet 650 mg PO Q6H PRN PRN (Reason: Mild Pain) Qty: 0 0RF Patient Comments: pain and inflammation hydrocodone-acetaminophen 1 TABLET tablet 1 tab PO Q6H PRN PRN (Reason: Pain) Qty: 30 0RF Patient Comments: pain iron aspgl,ps complex-vit C-sa [Ferrex 150 Plus] 150 MG capsule 150 mg PO DAILYCM Qty: 30 0RF Patient Comments: supplement Primary Care Provider: Victor M Cochran Chi Referrals: Victor M Cochran Chi, MD [Primary Care Provider] - Disposition Disposition: Home, Self Care Discharge Date/Time: 01/19/23 15:05
[2023-01-19 10:48] LABS: Absolute Lymphocyte Count 1.43 X10^3/uL (0.83-4.51); Absolute Neutrophil Count 4.9 X10^3/uL (2.0-7.7); Basophil# 0.02 X10^3/uL; Basophil% 0.3 % (0-1); Eosinophil# 0.18 X10^3/uL; Eosinophils% 2.5 % (0-5); Hematocrit 38.6 % (37-47); Hemoglobin 12.4 g/dL (12.0-15.0); Lymphocyte # 1.43 X10^3/ul (0.83-4.51); Lymphocyte % 19.9 % (19-41); Mean Corp Hgb Conc 32.1 g/dL (32-36); Mean Corpuscular Hgb 32.2 pg (27.0-32.0); Mean Corpuscular Volume 100.3 fL (81-99); Mean Platelet Vol. 8.8 fl (6.2-12.0); Monocyte# 0.61 X10^3/uL; Monocyte% 8.5 % (0-10); NRBC Flagged by Analyzer 0 % (0-5); Neutrophil # 4.93 X10^3/uL (2.7-7.7); Neutrophil % 68.4 % (47-70); Platelet Count 346 K/mm3 (150-450); RBC Distribution Width CV 14.3 % (11.6-14.6); RBC Distribution Width SD 51.6 fl (35.1-43.9); Red Blood Count 3.85 M/mm3 (4.2-5.4); White Blood Count 7.2 K/mm3 (4.4-11.0)
[2023-01-19 10:53] LABS: Bacteria 0 SEEN /hpf (None Seen); Color, Urine Yellow (Yellow); Glucose, Dipstick Normal (Normal); Ketone-Dipstick Negative (Negative); Leukocyte Esterase-Dipstick Negative /ul (Negative); Mucous, Urine 0 SEEN /hpf (<or=2+); Nitrite-Dipstick Negative (Negative); Occult Blood-Urine 25 /ul (Negative); Protein-Dipstick 15 mg/dl (Negative); Squamous Epithelial Cells - UA 0 SEEN /hpf (5-10); Urine Bilirubin Dipstick Negative (Negative); Urine Clarity Clear (Clear); Urine Urobilinogen Normal (Normal); White Blood Cells 0 SEEN /hpf (0-5)
[2023-01-19 10:59] LABS: Red Blood Cells-Urine 0-5 SEEN /hpf (0-5)
[2023-01-19 11:14] LABS: ALB/GLOB Ratio 0.8 RATIO (0.9-2.4); AST(SGOT) 27 U/L (15-37); Alanine Aminotransfer ALT/SGPT 20 U/L (13-56); Albumin, Serum 3.4 g/dL (3.2-5.0); Alkaline Phosphatase 82 U/L (45-117); Anion Gap 3 (5-15); BUN 11 mg/dL (7-18); BUN/Creat Ratio 11.5 RATIO (10-20); Calcium,Total 9.9 mg/dL (8.5-10.1); Chloride 101 mmol/L (98-107); Creatinine, Serum 0.96 mg/dL (0.55-1.02); EST Glomerular Filtration Rate 59 mL/min (>60); Est Glom Filt Rate - Afr Amer 72 mL/min (>60); Globulin 4.3 g/dL (2.2-4.2); Glucose 182 mg/dL (74-106); Lipase 31 U/L (13-75); Potassium 4.8 mmol/L (3.5-5.1); Protein, Total 7.7 g/dL (6.4-8.2); Sodium Level 133 mmol/L (136-145)
[2023-01-19 13:37] VITALS: RESP 18
[2023-01-19 14:53] VITALS: RESP 18
== END 2023-01-19 15:05 | disposition home or self-care (01) ==
PROVIDERS: Emergency Provider Student in an Organized Health Care Education/Training Program; PCP Family Medicine Geriatric Medicine; Visit Provider Student in an Organized Health Care Education/Training Program
DX: K59.00 Constipation, unspecified (principal); M06.9 Rheumatoid arthritis, unspecified; E11.9 Type 2 diabetes mellitus without complications; E78.00 Pure hypercholesterolemia, unspecified; R35.0 Frequency of micturition; Z79.899 Other long term (current) drug therapy
CPT/HCPCS: 74177; 80053; 81001; 83690; 85025; 99285; Q9967; A4216

== ENCOUNTER → 2023-01-23 | Outpatient (CLI) | payer MEDICARE, SELFPAY ==
--- NOTE | 2023-01-23 15:00 | RAD_ITS ---
EXAM: XR ABDOMEN, 2 VIEWS CLINICAL INDICATION: ABD PAIN ABD PAIN TECHNIQUE: Frontal view of the abdomen/pelvis with upright view of the abdomen. COMPARISON: CT scan abdomen and pelvis 03/21/2023. FINDINGS: LOWER THORAX: No acute pathology. INTRAPERITONEAL SPACE: No free air. GASTROINTESTINAL TRACT: There is prominent large and small bowel gas without abnormal distention. Gas extends into the region of the rectum. There are air-fluid levels on erect view without a stairstep pattern. Findings are suspicious for ileus. Colonic feces is much less prominent than it was on the recent CT scan. ORGANS: Unremarkable as visualized. No organomegaly. No abnormal calcifications. BONES/JOINTS: There is a left hip prosthesis. There are multilevel degenerative changes in the visualized spine. SOFT TISSUES: No acute pathology. RAD/Abd Inc Decub and/or Erect IMPRESSION: 1. Interval improvement of the fecal burden. 2. Prominent bowel gas with a nonobstructive pattern. Suspect ileus. Electronically Signed: Dequan Lo MD at 5:55 EDT ,
--- NOTE | 2023-01-23 15:00 | RAD_ITS ---
EXAM: XR LUMBOSACRAL SPINE, 4 OR 5 VIEWS CLINICAL INDICATION: LOW BACK PAIN LOW BACK PAIN TECHNIQUE: Frontal, lateral and bilateral oblique views of the lumbar spine. COMPARISON: Abdominal x-ray done today. CT scan abdomen and pelvis 01/19/2023. FINDINGS: VERTEBRAE: Best appreciated on the recent previous abdominal CT scan, there are nonacute compression fractures of the superior endplates of L5, L3, L2, L1, and T12. There is mild dextroscoliosis. There is multilevel spondylosis. There are multilevel degenerative changes of the facet joints. DISC SPACES: There is disc space narrowing at the L5-S1 level. GASTROINTESTINAL TRACT: There is prominent bowel gas, as discussed on abdominal x-ray report. This may represent ileus. RAD/L/S Spine Min 4 Views IMPRESSION: Multiple nonacute vertebral compression fractures. Multilevel degenerative changes. Electronically Signed: Dequan Lo MD at 6:09 EDT Reading Location ID and State: [facility] / [place] , Service support ,
== END | disposition home or self-care (01) ==
LOC: RAD 14:44
PROVIDERS: PCP Family Medicine Geriatric Medicine; Referring Provider Family Medicine Geriatric Medicine; Visit Provider Family Medicine Geriatric Medicine
DX: M54.50 Low back pain, unspecified (principal); R10.9 Unspecified abdominal pain
CPT/HCPCS: 72110; 74019

== ENCOUNTER → 2023-01-25 | Outpatient (CLI) | payer MEDICARE, SELFPAY ==
--- NOTE | 2023-01-25 16:00 | RAD_ITS ---
STUDY: X-RAY - ABDOMEN/PELVIS REASON FOR EXAM: Female, 82 years old. FECAL IMPACTION TECHNIQUE: AP portable COMPARISON: January 23, 2023 FINDINGS: Normal visualized lung bases. Mild nonspecific bowel distention.. There is no demonstrated free abdominal air. The visualized liver, spleen and kidneys are grossly normal in size and morphology. Normal soft tissue structures. [Left hip prosthesis is noted Lumbar spine demonstrates degenerative changes There are fewer distended loops on current study when compared with previous exam RAD/Abd Inc Decub and/or Erect IMPRESSION: Mild nonspecific bowel distention with interval improvement since previous study Electronically Signed: Santy Wiley MD at 17:00 EDT ,
== END | disposition home or self-care (01) ==
LOC: RAD 15:38
PROVIDERS: PCP Family Medicine Geriatric Medicine; Referring Provider Family Medicine Geriatric Medicine; Visit Provider Family Medicine Geriatric Medicine
DX: K56.41 Fecal impaction (principal)
CPT/HCPCS: 74019

== ENCOUNTER 2023-01-30 12:39 | Emergency (ER) | payer MEDICARE, SELFPAY ==
[2023-01-30 12:39] VITALS: BP 173/96; PULSE 86; RESP 18; TEMP 36.3; O2SAT 99
[2023-01-30] MEDS: Morphine 4 MG/ML Syringe IV (13:11)
[2023-01-30] MEDS: Ondansetron 4 MG/2 ML Vial IV (13:11)
[2023-01-30 13:25] LABS: Absolute Lymphocyte Count 1.01 X10^3/uL (0.83-4.51); Absolute Neutrophil Count 9.7 X10^3/uL (2.0-7.7); Basophil# 0.01 X10^3/uL; Basophil% 0.1 % (0-1); Eosinophil# 0.02 X10^3/uL; Eosinophils% 0.2 % (0-5); Hematocrit 41.1 % (37-47); Hemoglobin 14.3 g/dL (12.0-15.0); Lymphocyte # 1.01 X10^3/ul (0.83-4.51); Lymphocyte % 8.8 % (19-41); Mean Corp Hgb Conc 34.8 g/dL (32-36); Mean Corpuscular Hgb 33.9 pg (27.0-32.0); Mean Corpuscular Volume 97.4 fL (81-99); Mean Platelet Vol. 8.4 fl (6.2-12.0); Monocyte# 0.73 X10^3/uL; Monocyte% 6.3 % (0-10); NRBC Flagged by Analyzer 0 % (0-5); Neutrophil # 9.72 X10^3/uL (2.7-7.7); Neutrophil % 84.3 % (47-70); Platelet Count 397 K/mm3 (150-450); RBC Distribution Width CV 13.7 % (11.6-14.6); Red Blood Count 4.22 M/mm3 (4.2-5.4); White Blood Count 11.5 K/mm3 (4.4-11.0)
--- NOTE | 2023-01-30 13:33 | EDS_ITS ---
HPI History of Present Illness Chief Complaint: Back Onset/Context/Timing Onset: Weeks (1) Context: Sudden Onset Timing: Continuous Quality: Aching and - (Stabbing at times) Location: Lumbar Worsened by: improves with Nothing Relieved by: Nothing Associated Symptoms Associated Symptoms: Constipation; Negative for Numbness, Tingling, Radiation to Right Leg, Radiation to Left Leg, Fever, Abdominal Pain, Dysuria, Unable to Ambulate, Unable to Transfer, Urinary Retention, Urinary Incontinence or Fecal Incontinence Narrative Narrative: Patient presents with back pain that has been getting progressively worse over the past week. Patient denies any trauma or injury. Patient states she saw her primary care physician for some constipation. Patient states that when they did x-rays to evaluate her abdomen, they noticed 3 fractures of her lumbar spine. Patient has an appointment to see a pain management physician this week. Patient states that she has had a decreased appetite because of the pain. Family states patient is not eating and drinking much at home. Family is concerned that patient is dehydrated. Patient denies any radiation of the pain. Patient denies any bowel or bladder changes. Patient denies any saddle anesthesia. [facility] Medical History (Updated 01/30/23 @ 15:[address] Ugo Holliday, ) Diabetes High cholesterol Osteoarthritis Rheumatoid arthritis Home Medications atorvastatin 40 mg tablet 40 mg PO QHS 07/25/14 [History Last Taken 07/24/14 18:00] calcium carbonate 600 mg calcium (1,500 mg) tablet (Caltrate 600) 600 mg PO DAILY@0800 07/25/14 [History Last Taken 07/24/14 08:00] cholecalciferol (vitamin D3) 25 mcg (1,000 unit) tablet (Vitamin D3) 2,000 unit PO DAILY 07/25/14 [History Last Taken 07/24/14 08:00] leflunomide 10 mg tablet (Arava) 10 mg PO DAILY 07/25/14 [History Last Taken 07/24/14 08:00] aktvjtewtkfu-Uu-iubj-minerals (Multiple Vitamin, Womens tablet) 1 ea PO DAILY 07/25/14 [History Last Taken 07/24/14 08:00] acetaminophen 325 mg tablet (Tylenol) 650 mg (2 x 325 mg) PO Q6H PRN PRN Mild Pain ##0 08/06/14 [Rx Last Taken Unknown] hydrocodone-acetaminophen 5-325mg 5mg-325mg 1 tab PO Q6H PRN PRN Pain ##30 08/06/14 [Rx Last Taken Unknown] iron aspgl and ps cmplx 150 mg-vit C 50 mg-succinic acid 50 mg capsule (Ferrex) 150 mg (1.5 x 150-50-50 mg) PO DAILYCM ##30 08/06/14 [Rx Last Taken Unknown] metformin 500 mg tablet 500 mg PO DAILYCM ##30 08/06/14 [Rx Last Taken Unknown] peg 3350-electrolytes 236 gram-22.74 gram-6.74 gram-5.86 gram solution (Golytely) 240 ml PO Q10M PRN PRN constipation #4,000 mL 01/19/23 [Rx Last Taken Unknown] hydrocodone-acetaminophen 5-325mg 5mg-325mg 1 tab PO Q6H PRN PRN Pain 3 days #10 TABLETS 01/30/23 [Rx Last Taken Unknown] Allergy/AdvReac Type Severity Reaction Status Date / Time alendronate sodium Allergy Anaphylaxis Verified 01/19/23 09:40 [From Fosamax] Penicillins Allergy Swelling Verified 01/19/23 09:40 Surgical History (Updated 01/30/23 @ 13:[address] Ugo Holliday DO) S/P ORIF (open reduction internal fixation) fracture Social History Smoking Status: Never smoker ROS ROS ED Constitutional Constitutional ED: Denies chills or fever(s) Eyes Eyes: Denies blurry vision or change in vision ENT ENT ED: Reports rhinorrhea; Denies sore throat Cardiovascular Cardiovascular: Denies chest pain or palpitations Respiratory/Chest Respiratory/Chest: Denies cough or dyspnea Gastrointestinal Gastrointestinal: Reports constipation and nausea; Denies vomiting Genitourinary Genitourinary ED: Denies dysuria or hematuria Musculoskeletal Musculoskeletal: Reports back pain; Denies neck pain Integumentary Denies abscess or rash Neurologic Neurologic: Denies headache(s) or weakness Allergic/Immunologic Allergic/Immunologic ED: Denies mouth swelling or urticaria EXAM Physical Exam Const Vital Signs: 01/30/23 12:39 Temperature 97.3 F L Temperature Source Temporal Pulse Rate 86 Respiratory Rate 18 Blood Pressure 173/96 H Blood Pressure Mean 121 Pulse Ox 99 Positive well nourished and well developed General Appearance ED: well developed and NAD HEENT Reports moist mucous membranes Neck supple and no JVD Resp normal respiratory effort and clear to auscultation bilaterally Cardio regular rate, regular rhythm and no murmurs GI normal to inspection, nondistended, normoactive bowel sounds and non-tender Palpation: soft Back/Spine Back/Spine Narrative: There is tenderness over the upper lumbar spine and paraspinal muscles. There is no bony crepitance or step-off. Range of motion was limited in all motions of the lumbar spine secondary to pain. Strength is 5/5 bilaterally in the plantarflexion of the ankle and extensor of the toes. Strength is 4/5 in hip flexors. There are no sensory deficits noted. Pedal pulses are equal bila terally. Extremity normal to inspection General Extremety ED: Negative for edema or tenderness General Extremity: Negative for edema Neuro oriented x3, CN's II-XII intact bilaterally and no sensory deficits noted Sensorium / Orientation: alert Motor Exam: strength abnormal flexion (Strength is 4/5 in flexion of the hips and elevation of the legs bilaterally.) Psych mental status grossly normal Skin no rashes or lesions noted MDM MDM MDM Narrative Medical decision making narrative: Differential diagnosis includes electrolyte abnormality, dehydration, urinary tract infection, and musculoskeletal back pain. CBC will be obtained to assess for leukocytosis and anemia. Basic metabolic profile will be obtained to assess for electrolyte abnormality and renal function. Urinalysis will be obtained to assess for urinary tract infection. Lab Data Attestation: I reviewed the patient's lab results. Lab results narrative: CBC was reviewed. There is a slight leukocytosis of 11.5. The remainder is within normal limits. Basic metabolic profile was reviewed. Glucose was elevated at 315. Sodium was slightly low at 133. Remainder was essentially within normal limits. Urinalysis was reviewed. Occult blood was 150 with 10-25 red blood cells. There is no evidence of urinary tract infection. There is glucosuria of 1000. Labs: Laboratory Results - last 24 hr 01/30/23 01/30/23 13:15 14:23 WBC 11.5 H RBC 4.22 Hgb 14.3 Hct 41.1 MCV 97.4 MCH 33.9 H MCHC 34.8 RDW Std Deviation 49.0 H RDW Coeff of Ed 13.7 Plt Count 397 MPV 8.4 Immature Gran % (Auto) 0.300 Neut % (Auto) 84.3 H Lymph % (Auto) 8.8 L [place] % (Auto) 6.3 Eos % (Auto) 0.2 Baso % (Auto) 0.1 Absolute Neuts (auto) 9.7 H Absolute Lymphs (auto) 1.01 Nucleated RBC % 0 Sodium 133 L Potassium 4.5 Chloride 99 Carbon Dioxide 28.0 Anion Gap 6 BUN 18 Creatinine 0.99 Est GFR (MDRD) Af Amer 69 Est GFR (MDRD) Non-Af 57 L BUN/Creatinine Ratio 18.1 Glucose 315 H Calcium 10.0 Urine Color Yellow Urine Clarity Sl. Cloudy Urine pH 5.0 Ur Specific [place] 1.025 Urine Protein 100 H Urine Glucose (UA) 1000 H Urine Ketones 50 H Urine Occult Blood 150 H Urine Nitrite Negative Urine Bilirubin Negative Urine Urobilinogen Normal Ur Leukocyte Esterase Negative Urine RBC 10-25 SEEN Urine WBC 0 SEEN Ur Squamous Epith Cells 0 SEEN Urine Bacteria 0 SEEN Urine Mucus 0 SEEN Management Discussion w/another healthcare provider: PCP Treatment and Re-Evaluation Narrative: Patient was given a dose of morphine and Zofran. Patient is feeling somewhat better on reevaluation. Patient was advised of her findings. Patient has not on any oral hypoglycemics at this time. Patient states she had been on metformin in the past but was taken off of that because her sugars were well controlled. Case was discussed with Dr. Cohcran. He stated they will contact her tomorrow and set up an outpatient follow-up. Patient and family understood and were agreeable with the plan. Patient was given a prescription for a short course of [place]. All questions were answered. Discharge Plan Triage Chief Complaint: Back ED Provider: Ugo Holliday Dx/Rx/DC Orders Clinical Impression: Back pain, History of vertebral compression fracture, Hyperglycemia without ketosis Instructions: ED Back Pain (Acute or Chronic), ED Diabetic Hyperglycemia Prescriptions: New hydrocodone-acetaminophen [hydrocodone-acetaminophen] 5-325 mg tablet 1 tab PO Q6H PRN PRN (Reason: Pain) 3 Days Qty: 10 0RF No Action atorvastatin 40 MG tablet 40 mg PO QHS Patient Comments: treatment of high cholesterol leflunomide [Arava] 10 MG tablet 10 mg PO DAILY Patient Comments: ARTHRITIS calcium carbonate [Caltrate 600] 600 MG tablet 600 mg PO DAILY@0800 Patient Comments: supplement neysucmqzbtl-Vs-hzrj-minerals [Multiple Vitamin, Womens] 1 EACH tablet 1 ea PO DAILY Patient Comments: SUPPLEMENT cholecalciferol (vitamin D3) [Vitamin D3] 1,000 UNIT tablet 2,000 unit PO DAILY Patient Comments: supplement metformin 500 MG tablet 500 mg PO DAILYCM Qty: 30 0RF Patient Comments: treatment of beatrice blood sugar acetaminophen [Tylenol] 325 MG tablet 650 mg PO Q6H PRN PRN (Reason: Mild Pain) Qty: 0 0RF Patient Comments: pain and inflammation hydrocodone-acetaminophen 1 TABLET tablet 1 tab PO Q6H PRN PRN (Reason: Pain) Qty: 30 0RF Patient Comments: pain iron aspgl,ps complex-vit C-sa [Ferrex 150 Plus] 150 MG capsule 150 mg PO DAILYCM Qty: 30 0RF Patient Comments: supplement peg 3350-electrolytes [Golytely] 236-22.74-6.74 -5.86 gram recon soln 240 ml PO Q10M PRN PRN (Reason: constipation) Qty: 4000 0RF Rx Instructions: until fecal effluent is clear Primary Care Provider: Victor M Cochran Chi Referrals: Victor M Cochran Chi, MD [Primary Care Provider] - As soon as possible Activity Restrictions/Additional Instructions: Dr. Cochran's office will call you tomorrow to schedule a follow-up appointment. Disposition Disposition: Home, Self Care
[2023-01-30 13:34] LABS: Anion Gap 6 (5-15); BUN 18 mg/dL (7-18); BUN/Creat Ratio 18.1 RATIO (10-20); Chloride 99 mmol/L (98-107); Creatinine, Serum 0.99 mg/dL (0.55-1.02); EST Glomerular Filtration Rate 57 mL/min (>60); Est Glom Filt Rate - Afr Amer 69 mL/min (>60); Glucose 315 mg/dL (74-106); Potassium 4.5 mmol/L (3.5-5.1); Sodium Level 133 mmol/L (136-145)
[2023-01-30 14:30] LABS: Bacteria 0 SEEN /hpf (None Seen); Mucous, Urine 0 SEEN /hpf (<or=2+); Squamous Epithelial Cells - UA 0 SEEN /hpf (5-10); White Blood Cells 0 SEEN /hpf (0-5)
[2023-01-30 14:57] LABS: Color, Urine Yellow (Yellow); Glucose, Dipstick 1000 mg/dl (Normal); Ketone-Dipstick 50 mg/dl (Negative); Leukocyte Esterase-Dipstick Negative /ul (Negative); Nitrite-Dipstick Negative (Negative); Occult Blood-Urine 150 /ul (Negative); Protein-Dipstick 100 mg/dl (Negative); Specific Gravity, Urine 1.025 (1.002-1.030); Urine Bilirubin Dipstick Negative (Negative); Urine Clarity Sl. Cloudy (Clear); Urine Urobilinogen Normal (Normal)
[2023-01-30 15:05] LABS: Red Blood Cells-Urine 10-25 SEEN /hpf (0-5)
[2023-01-30 15:45] VITALS: BP 140/82; PULSE 70; RESP 18; O2SAT 96
== END 2023-01-30 15:50 | disposition home or self-care (01) ==
PROVIDERS: Emergency Provider Emergency Medicine; PCP Family Medicine Geriatric Medicine; Visit Provider Emergency Medicine
DX: M54.9 Dorsalgia, unspecified (principal); M06.9 Rheumatoid arthritis, unspecified; E11.65 Type 2 diabetes mellitus with hyperglycemia; K59.00 Constipation, unspecified; M48.56XD Collapsed vertebra, not elsewhere classified, lumbar region, subsequent encounter for fracture with routine healing; E78.00 Pure hypercholesterolemia, unspecified; Z79.84 Long term (current) use of oral hypoglycemic drugs; Z79.899 Other long term (current) drug therapy
CPT/HCPCS: 80048; 81001; 85025; 96374; 96375; 99283; A4216; J2405

== ENCOUNTER → 2023-02-23 | Outpatient (CLI) | payer MEDICARE, SELFPAY ==
[2023-02-23 13:47] LABS: Absolute Lymphocyte Count 0.79 X10^3/uL (0.83-4.51); Absolute Neutrophil Count 6.7 X10^3/uL (2.0-7.7); Basophil# 0.01 X10^3/uL; Basophil% 0.1 % (0-1); Eosinophil# 0.01 X10^3/uL; Eosinophils% 0.1 % (0-5); Lymphocyte # 0.79 X10^3/ul (0.83-4.51); Lymphocyte % 9.8 % (19-41); Mean Corp Hgb Conc 32.5 g/dL (32-36); Mean Corpuscular Hgb 32.9 pg (27.0-32.0); Mean Corpuscular Volume 101.3 fL (81-99); Mean Platelet Vol. 8.8 fl (6.2-12.0); Monocyte# 0.57 X10^3/uL; Monocyte% 7.1 % (0-10); NRBC Flagged by Analyzer 0 % (0-5); Neutrophil # 6.65 X10^3/uL (2.7-7.7); Neutrophil % 82.5 % (47-70); Platelet Count 347 K/mm3 (150-450); RBC Distribution Width CV 14.4 % (11.6-14.6); RBC Distribution Width SD 53.7 fl (35.1-43.9); Red Blood Count 3.95 M/mm3 (4.2-5.4); White Blood Count 8.1 K/mm3 (4.4-11.0)
[2023-02-23 14:00] LABS: Vitamin D,25 Hydroxy 47.5 ng/mL
[2023-02-23 14:11] LABS: ALB/GLOB Ratio 0.8 RATIO (0.9-2.4); AST(SGOT) 15 U/L (15-37); Alanine Aminotransfer ALT/SGPT 19 U/L (13-56); Albumin, Serum 3.3 g/dL (3.2-5.0); Alkaline Phosphatase 75 U/L (45-117); Anion Gap 3 (5-15); BUN 17 mg/dL (7-18); Calcium,Total 9.6 mg/dL (8.5-10.1); Chloride 106 mmol/L (98-107); Creatinine, Serum 1.06 mg/dL (0.55-1.02); EST Glomerular Filtration Rate 53 mL/min (>60); Est Glom Filt Rate - Afr Amer 64 mL/min (>60); Globulin 3.9 g/dL (2.2-4.2); Glucose 314 mg/dL (74-106); Potassium 4.5 mmol/L (3.5-5.1); Protein, Total 7.2 g/dL (6.4-8.2); Sodium Level 137 mmol/L (136-145); Thyroid Stim Hormone (TSH) 3.59 uIU/mL (0.358-3.74)
== END | disposition home or self-care (01) ==
PROVIDERS: PCP Family Medicine Geriatric Medicine; Visit Provider Family Medicine Geriatric Medicine
DX: I10 Essential (primary) hypertension (principal); E11.65 Type 2 diabetes mellitus with hyperglycemia; E55.9 Vitamin D deficiency, unspecified
CPT/HCPCS: 36415; 80053; 82306; 84443; 85025

== ENCOUNTER → 2023-03-07 | Outpatient (CLI) | payer MEDICARE, SELFPAY ==
[2023-03-07 10:21] LABS: Basophil# 0.03 X10^3/uL; Basophil% 0.4 % (0-1); Eosinophil# 0.11 X10^3/uL; Eosinophils% 1.3 % (0-5); Hematocrit 38.1 % (37-47); Hemoglobin 11.9 g/dL (12.0-15.0); Lymphocyte % 17.9 % (19-41); Mean Corp Hgb Conc 31.2 g/dL (32-36); Mean Corpuscular Hgb 32.9 pg (27.0-32.0); Mean Corpuscular Volume 105.2 fL (81-99); Mean Platelet Vol. 8.9 fl (6.2-12.0); Monocyte# 0.76 X10^3/uL; Monocyte% 9.1 % (0-10); NRBC Flagged by Analyzer 0 % (0-5); Neutrophil # 5.96 X10^3/uL (2.7-7.7); Neutrophil % 70.9 % (47-70); Platelet Count 293 K/mm3 (150-450); RBC Distribution Width SD 58.6 fl (35.1-43.9); Red Blood Count 3.62 M/mm3 (4.2-5.4); White Blood Count 8.4 K/mm3 (4.4-11.0)
[2023-03-07 11:03] LABS: AST(SGOT) 20 U/L (15-37); Alanine Aminotransfer ALT/SGPT 24 U/L (13-56); Albumin, Serum 3.4 g/dL (3.2-5.0); Alkaline Phosphatase 65 U/L (45-117); Anion Gap 3 (5-15); BUN 10 mg/dL (7-18); BUN/Creat Ratio 12.7 RATIO (10-20); Calcium,Total 9.3 mg/dL (8.5-10.1); Chloride 109 mmol/L (98-107); Creatinine, Serum 0.79 mg/dL (0.55-1.02); EST Glomerular Filtration Rate 74 mL/min (>60); Est Glom Filt Rate - Afr Amer 89 mL/min (>60); Globulin 3.5 g/dL (2.2-4.2); Glucose 79 mg/dL (74-106); Potassium 4.1 mmol/L (3.5-5.1); Protein, Total 6.9 g/dL (6.4-8.2); Sodium Level 141 mmol/L (136-145)
== END | disposition home or self-care (01) ==
LOC: MTLAB 07:05
PROVIDERS: PCP Family Medicine Geriatric Medicine; Referring Provider Internal Medicine Rheumatology; Visit Provider Internal Medicine Rheumatology
DX: M06.00 Rheumatoid arthritis without rheumatoid factor, unspecified site (principal); Z79.899 Other long term (current) drug therapy
CPT/HCPCS: 36415; 80053; 85025

== ENCOUNTER → 2023-03-13 | Outpatient (CLI) | payer MEDICARE, SELFPAY ==
--- NOTE | 2023-03-13 13:00 | RAD_ITS ---
STUDY: X-RAY CHEST REASON FOR EXAM: Female, 83 years old. Weight loss. Generalized weakness. TECHNIQUE: PA and lateral views of the chest. COMPARISON: Comparison is made with prior study dated September 23, 2015. FINDINGS: Increased markings in the upper lobes preferentially in the lateral distribution more prominent in the right upper lobe suggestive of scarring. Mild scarring at the lung bases. Hyperinflation and COPD. Normal size heart. Normal mediastinum and zbigniew. Normal visualized pulmonary arteries. There is atherosclerotic calcification of the aortic arch with tortuosity. There is demineralization of the osseous structures. Loss of height of mid dorsal vertebrae. Increased kyphosis. Normal visualized ribs, clavicles, and shoulders. There is no demonstrated abnormality of the visualized soft tissue structures of the upper abdomen. RAD/Chest PA and Lateral IMPRESSION: Hyperinflation. Scarring in the right upper lobe and lung bases. Electronically Signed: Dae Fitzgerald MD at 14:13 EDT ,
[2023-03-13 13:18] LABS: Absolute Lymphocyte Count 1.25 X10^3/uL (0.83-4.51); Absolute Neutrophil Count 3.2 X10^3/uL (2.0-7.7); Basophil# 0.01 X10^3/uL; Basophil% 0.2 % (0-1); Eosinophil# 0.06 X10^3/uL; Eosinophils% 1.2 % (0-5); Hematocrit 38.4 % (37-47); Hemoglobin 12.2 g/dL (12.0-15.0); Lymphocyte # 1.25 X10^3/ul (0.83-4.51); Lymphocyte % 24.7 % (19-41); Mean Corp Hgb Conc 31.8 g/dL (32-36); Mean Corpuscular Hgb 33.5 pg (27.0-32.0); Mean Corpuscular Volume 105.5 fL (81-99); Mean Platelet Vol. 8.4 fl (6.2-12.0); Monocyte# 0.58 X10^3/uL; Monocyte% 11.5 % (0-10); NRBC Flagged by Analyzer 0 % (0-5); Neutrophil # 3.15 X10^3/uL (2.7-7.7); Neutrophil % 62.2 % (47-70); Platelet Count 283 K/mm3 (150-450); RBC Distribution Width CV 15.5 % (11.6-14.6); RBC Distribution Width SD 59.7 fl (35.1-43.9); Red Blood Count 3.64 M/mm3 (4.2-5.4); White Blood Count 5.1 K/mm3 (4.4-11.0)
[2023-03-13 13:59] LABS: ALB/GLOB Ratio 1.1 RATIO (0.9-2.4); AST(SGOT) 20 U/L (15-37); Alanine Aminotransfer ALT/SGPT 22 U/L (13-56); Albumin, Serum 3.6 g/dL (3.2-5.0); Alkaline Phosphatase 61 U/L (45-117); Anion Gap 5 (5-15); BUN 8 mg/dL (7-18); BUN/Creat Ratio 11.3 RATIO (10-20); Calcium,Total 9.5 mg/dL (8.5-10.1); Chloride 107 mmol/L (98-107); EST Glomerular Filtration Rate 84 mL/min (>60); Est Glom Filt Rate - Afr Amer 102 mL/min (>60); Globulin 3.4 g/dL (2.2-4.2); Glucose 112 mg/dL (74-106); Magnesium 2.4 mg/dL (1.6-2.6); Phosphorus 2.3 mg/dL (2.5-4.9); Potassium 3.5 mmol/L (3.5-5.1); Sodium Level 142 mmol/L (136-145)
== END | disposition home or self-care (01) ==
PROVIDERS: PCP Family Medicine Geriatric Medicine; Referring Provider Family Medicine Geriatric Medicine; Visit Provider Family Medicine Geriatric Medicine
DX: I10 Essential (primary) hypertension (principal); N39.0 Urinary tract infection, site not specified; R60.9 Edema, unspecified; R06.02 Shortness of breath
CPT/HCPCS: 36415; 71046; 80053; 83735; 83880; 84100; 84443; 85025; 87086

== ENCOUNTER → 2023-03-16 | Outpatient (CLI) | payer MEDICARE, SELFPAY ==
--- NOTE | 2023-03-16 15:14 | BI_ITS ---
MAMMOGRAPHY - BILATERAL SCREENING REASON FOR EXAM: Female, 83 years old. Routine annual screening examination. PERTINENT HISTORY: Non-contributory. TECHNIQUE: Digital bilateral breast angi (3D mammographic acquisition) in the CC and MLO projections. 2-D mediolateral oblique (MLO) and craniocaudad (CC) views of both breasts were obtained. CAD: Full Field Digital Mammography with Computer Added Detection was performed. COMPARISON: Comparison is made with prior study March 25, 2015. FINDINGS: Breast Composition: The breasts are extremely dense, which lowers the sensitivity of mammography. There are no dominant masses or suspicious calcifications. No other significant abnormalities are identified. There has been no significant change since the prior study. BI/SCRN MAMM (CAD)W/ANGI BILAT IMPRESSION: Stable bilateral screening mammogram. Yearly follow-up mammogram recommended. (A) ASSESSMENT CATEGORY: BIRADS Category 1: Negative. A letter regarding these results will be sent to the patient by the facility within 30 days. Approximately 10% of breast cancers are not detected by mammography. A normal mammogram should not delay biopsy of a clinically suspicious abnormality. [id number] Electronically Signed: Dae Fitzgerald MD at 8:41 EDT ,
== END | disposition home or self-care (01) ==
LOC: OPBI 15:13
PROVIDERS: PCP Family Medicine Geriatric Medicine; Referring Provider Family Medicine Geriatric Medicine; Visit Provider Family Medicine Geriatric Medicine
DX: Z12.31 Encounter for screening mammogram for malignant neoplasm of breast (principal)
CPT/HCPCS: 77063; 77067

== ENCOUNTER → 2023-03-16 | Outpatient (CLI) | payer MEDICARE, SELFPAY | END | disposition home or self-care (01) | LOC: LAB 14:58 | PROVIDERS: PCP Family Medicine Geriatric Medicine; Referring Provider Family Medicine Geriatric Medicine; Visit Provider Family Medicine Geriatric Medicine | DX: D50.9 Iron deficiency anemia, unspecified (principal) | CPT/HCPCS: 82274 ==

== ENCOUNTER → 2023-03-20 | Outpatient (CLI) | payer MEDICARE, SELFPAY ==
[2023-03-20 14:16] LABS: Phosphorus 2.7 mg/dL (2.5-4.9)
== END | disposition home or self-care (01) ==
LOC: LAB 12:15
PROVIDERS: PCP Family Medicine Geriatric Medicine; Referring Provider Family Medicine Geriatric Medicine; Visit Provider Family Medicine Geriatric Medicine
DX: E83.39 Other disorders of phosphorus metabolism (principal)
CPT/HCPCS: 36415; 84100

== ENCOUNTER → 2023-04-04 | Outpatient (CLI) | payer MEDICARE, SELFPAY ==
--- NOTE | 2023-04-04 16:35 | RAD_ITS ---
STUDY: X-RAY - ABDOMEN/PELVIS REASON FOR EXAM: Female, 83 years old. Diffuse abdominal pain TECHNIQUE: Two AP supine views of the abdomen and pelvis. COMPARISON: None. FINDINGS: Normal visualized lung bases. There is an unremarkable bowel gas pattern. There is no demonstrated free abdominal air. The visualized liver, spleen and kidneys are grossly normal in size and morphology. Normal soft tissue structures. There are diffuse degenerative changes of the visualized lumbar spine. Replaced left hip joint free of complication RAD/Abd Inc Decub and/or Erect IMPRESSION: No abnormal findings Electronically Signed: Miguel Klob MD at 13:57 EDT ,
== END | disposition home or self-care (01) ==
LOC: RAD 16:33
PROVIDERS: PCP Family Medicine Geriatric Medicine; Referring Provider Family Medicine Geriatric Medicine; Visit Provider Family Medicine Geriatric Medicine
DX: R10.9 Unspecified abdominal pain (principal)
CPT/HCPCS: 74019

== ENCOUNTER → 2023-04-17 | Outpatient (CLI) | payer MEDICARE, SELFPAY ==
[2023-04-17 10:15] LABS: Absolute Lymphocyte Count 0.93 X10^3/uL (0.83-4.51); Absolute Neutrophil Count 6.7 X10^3/uL (2.0-7.7); Basophil# 0.03 X10^3/uL; Basophil% 0.4 % (0-1); Eosinophils% 1.2 % (0-5); Hematocrit 37.5 % (37-47); Hemoglobin 11.7 g/dL (12.0-15.0); Lymphocyte # 0.93 X10^3/ul (0.83-4.51); Mean Corp Hgb Conc 31.2 g/dL (32-36); Mean Corpuscular Hgb 33.1 pg (27.0-32.0); Mean Corpuscular Volume 105.9 fL (81-99); Mean Platelet Vol. 8.7 fl (6.2-12.0); Monocyte# 0.62 X10^3/uL; Monocyte% 7.4 % (0-10); NRBC Flagged by Analyzer 0 % (0-5); Neutrophil # 6.71 X10^3/uL (2.7-7.7); Neutrophil % 79.6 % (47-70); Platelet Count 465 K/mm3 (150-450); RBC Distribution Width CV 14.2 % (11.6-14.6); RBC Distribution Width SD 55.9 fl (35.1-43.9); Red Blood Count 3.54 M/mm3 (4.2-5.4); White Blood Count 8.4 K/mm3 (4.4-11.0)
[2023-04-17 10:53] LABS: ALB/GLOB Ratio 0.8 RATIO (0.9-2.4); AST(SGOT) 16 U/L (15-37); Alanine Aminotransfer ALT/SGPT 16 U/L (13-56); Albumin, Serum 3.4 g/dL (3.2-5.0); Alkaline Phosphatase 67 U/L (45-117); Anion Gap 3 (5-15); BUN 13 mg/dL (7-18); BUN/Creat Ratio 14.9 RATIO (10-20); Calcium,Total 9.8 mg/dL (8.5-10.1); Chloride 105 mmol/L (98-107); Creatinine, Serum 0.87 mg/dL (0.55-1.02); EST Glomerular Filtration Rate 66 mL/min (>60); Est Glom Filt Rate - Afr Amer 80 mL/min (>60); Globulin 4.1 g/dL (2.2-4.2); Glucose 149 mg/dL (74-106); Potassium 4.3 mmol/L (3.5-5.1); Protein, Total 7.5 g/dL (6.4-8.2); Sodium Level 139 mmol/L (136-145)
[2023-04-19 06:09] LABS: G6PD Quant Test 384 (127-427); Red Blood Cell Count Test/G6PD 3.58 x10E6/uL (3.77-5.28)
== END | disposition home or self-care (01) ==
PROVIDERS: PCP Family Medicine Geriatric Medicine; Referring Provider Internal Medicine Rheumatology; Visit Provider Internal Medicine Rheumatology
DX: M06.00 Rheumatoid arthritis without rheumatoid factor, unspecified site (principal); Z79.899 Other long term (current) drug therapy
CPT/HCPCS: 36415; 80053; 82955; 85025

== ENCOUNTER 2023-05-25 14:56 | Observation (INO) | payer MEDICARE, SELFPAY ==
[2023-05-25 14:57] VITALS: BP 143/77; PULSE 94; RESP 16; TEMP 37; O2SAT 100; BMI 15.5
--- NOTE | 2023-05-25 15:04 | EX.ED.DYSGE1 ---
HPI History of Present Illness Chief Complaint: General Illness [facility] Medical History (Updated 05/25/23 @ 19:[address] Gogo Browne MD) Diabetes High cholesterol Iron deficiency anemia Osteoarthritis Rheumatoid arthritis Home Medications atorvastatin 40 mg tablet 40 mg PO QHS CHOLESTEROL 07/25/14 [History Last Taken 07/24/14 18:00] calcium carbonate 600 mg calcium (1,500 mg) tablet (Caltrate 600) 600 mg PO DAILY SUPPLEMENT 07/25/14 [History Last Taken 07/24/14 08:00] cholecalciferol (vitamin D3) 25 mcg (1,000 unit) tablet (Vitamin D3) 2,000 unit PO DAILY SUPPLEMENT 07/25/14 [History Last Taken 07/24/14 08:00] leflunomide 10 mg tablet (Arava) 10 mg PO DAILY RHEUMATOID ARTHRITIS 07/25/14 [History Last Taken 07/24/14 08:00] nweqtjoflemm-El-e[place]y-minerals (Multiple Vitamin, Womens tablet) 1 ea PO DAILY HEALTH MAINTENANCE 07/25/14 [History Last Taken 07/24/14 08:00] iron aspgl and ps cmplx 150 mg-vit C 50 mg-succinic acid 50 mg capsule (Ferrex) 150 mg (1.5 x 150-50-50 mg) PO DAILYCM SUPPLEMENT #30 caps 08/06/14 [Rx Last Taken Unknown] baclofen 10 mg tablet 10 mg PO QHS MUSCLE SPASMS 05/25/23 [History Last Taken Unknown] brimonidine 0.2 %-timolol 0.5 % eye drops 1 drp ophthalmic (eye) BID GLAUCOMA 05/25/23 [History Last Taken Unknown] dapagliflozin propanediol 10 mg tablet (Farxiga) 10 mg PO DAILY BLOOD SUGARS 05/25/23 [History Last Taken Unknown] glimepiride 2 mg tablet 2 mg PO DAILY BLOOD SUGARS 05/25/23 [History Last Taken Unknown] lactulose 10 gram/15 mL oral solution 30 ml PO BID LIVER 05/25/23 [History Last Taken Unknown] simethicone 80 mg chewable tablet (Gas Relief (simethicone)) 80 mg PO 4X/DAY GAS RELIEF 05/25/23 [History Last Taken Unknown] Allergy/AdvReac Type Severity Reaction Status Date / Time alendronate sodium Allergy Anaphylaxis Verified 05/25/23 14:57 [From Fosamax] Penicillins Allergy Swelling Verified 05/25/23 14:57 Family History (Updated 05/25/23 @ 19:[address] Gogo Browne MD) Mother COPD (chronic obstructive pulmonary disease) Surgical History (Updated 05/25/23 @ 19:[address] Gogo Browne MD) History of surgery on arm S/P ORIF (open reduction internal fixation) fracture Social History (Updated 05/25/23 @ 19:[address] Gogo Browne MD) household members: none Smoking Status: Never smoker alcohol intake: never substance use type: does not use EXAM Physical Exam Const Vital Signs: 05/25/23 14:57 05/25/23 15:21 05/25/23 17:16 Temperature 98.6 F Temperature Source Temporal Pulse Rate 94 80 Respiratory Rate 16 16 Respiratory Effort Normal Respiratory Pattern Normal Blood Pressure 143/77 H 164/87 H Blood Pressure Mean 99 112 Pulse Ox 100 94 Oxygen Delivery Method Room Air Room Air 05/25/23 18:43 Temperature 98.4 F Temperature Source Oral Pulse Rate 84 Respiratory Rate 18 Respiratory Effort Respiratory Pattern Blood Pressure 164/92 H Blood Pressure Mean 116 Pulse Ox 94 Oxygen Delivery Method Room Air MDM MDM MDM Narrative Medical decision making narrative: HISTORY OF PRESENT ILLNESS: 83-year-old female presents with concern for diffuse weakness and inability to thrive at home. She is accompanied by her family members who states she lives at home alone and did not feel safe with her being in this environment given her progressive weakness, weight loss. They note she has had chronic back and right flank pain. States not get around well at home. She has been progressively losing weight getting weaker. Patient denies any cough, fever, runny nose, chills, sick contacts. They state they have been following with Dr. Cochran who last saw her at the end of March. I spoke to Dr. Goodrich on the phone who recommended her being admitted for placement. Patient denies having constipation. Notes have bowel yesterday and a full bowel movement over the weekend. REVIEW OF SYSTEMS: Pertinent positives: Weakness, right flank pain/back pain, urinary frequency Pertinent negatives: Cough, confusion, fever, chest pain, shortness of breath, focal weakness PHYSICAL EXAM: Nursing triage notes reviewed, Vital signs reviewed Constitutional: please see mdm HENT: MMM Eyes: Pupils equal round and reactive to light, Extraocular muscles intact Neck: No stridor, no JVD, full neck ROM Lungs: Clear to auscultation, No wheezing or rales. No increased work of breathing, no conversational dyspnea, no accessory muscle use, no nasal flaring. No respiratory distress noted Heart: Regular rate and rhythm, No murmurs, No rubs and No gallops, 2+ distal pulses (radial, femoral, posterior tibial) in all extremities Abdomen: Soft, there is no tenderness, rigidity, rebound or guarding, no obvious peritoneal signs, no palpable pulsatile abdominal masses, no auscultated abdominal bruit : No CVAT Extremities: No edema Neuro: No focal neurological deficits, cranial nerves II through XII intact, 5/5 strength in all extremities. Intact sensation to light touch in all extremities, 2+ reflexes bilateral patella tendons. No ataxia. Skin: No rash or lesions noted MEDICAL DECISION MAKING: Chief Complaint: Weakness External records reviewed: No recent ED visits or hospitalizations Factors affecting care: Type 2 diabetes, hyperlipidemia rheumatoid arthritis Social determinants of health: None History obtained from others: Family Consults: Internal medicine MDM Narrative: Patient presents hemodynamically stable, afebrile and nontoxic-appearing. Exam with frail-appearing elderly female with TTP over right flank and right abdomen. There is also TTP over lower lumbar spine. No peritoneal signs. There are no focal deficits. I considered the following differential diagnosis: Arrhythmia, dehydration, electrolyte disturbance, anemia, UTI ALL IMAGES (IF OBTAINED) HAVE BEEN PERSONALLY REVIEWED AND INTERPRETED BY MYSELF. CBC without significant leukocytosis or anemia or thrombocytopenia BMP without evidence of significant electrolyte abnormalities, no anion gap, no acute kidney injury. Not elevated consistent with likely dehydration rather than endorgan hypoperfusion High-sensitivity troponin is negative, no evidence of myocardial ischemia x 2 Lipase is wnl indicating no pancreatic inflammation. Urinalysis shows no evidence of urinary inflammation suggestive of UTI CT scans as below Patient CT of the abdomen pelvis showed evidence of possible fecal impaction the patient notes having regular bowel movements which makes this unlikely. There is no sign of acute DVT via prelim read by certified neurodiagnostic technologist. Will not start anticoagulation at this time. The synthesis of the patient's history, physical exam labs imaging studies suggest no acute life-limiting etiology however given the patient advanced age, family concerned about her failure to thrive she will be admitted for PT OT, evaluation for possible placement. The patient and/or family, caregivers express understanding. The patient and/or family, caregivers agrees with the plan. Shared decision making: I will have a discussion with the patient and or visitors regarding risk/benefits of further testing or admission. They will be made aware of of the risk/benefits inherent in this decision they will be given the opportunity to voice understanding. Total critical care time today provided was at least 0 [] minutes. This excludes separately billable procedures. Critical care time (if documented) is secondary to the patient having high probability of clinically significant/life threatening deterioration in the patient's condition which required my urgent intervention. Impression: 1. Adult failure to thrive 2. Diffuse weakness 3. Glucosuria 4. Hematuria 5. Elevated lactate 6. Influenza B 7. COVID-19 Dispo: Admit to [facility] Lab Data Labs: Laboratory Results - last 24 hr 05/25/23 05/25/23 15:37 18:05 WBC 9.1 RBC 4.01 L Hgb 12.7 Hct 42.2 MCV 105.2 H MCH 31.7 MCHC 30.1 L RDW Std Deviation 52.9 H RDW Coeff of Ed 13.7 Plt Count 367 MPV 8.2 Immature Gran % (Auto) 0.400 Neut % (Auto) 71.6 H Lymph % (Auto) 14.5 L [place] % (Auto) 10.0 Eos % (Auto) 2.8 Baso % (Auto) 0.7 Absolute Neuts (auto) 6.5 Absolute Lymphs (auto) 1.32 Nucleated RBC % 0 Sodium 137 Potassium 4.4 Chloride 104 Carbon Dioxide 29.0 Anion Gap 4 L BUN 14 Creatinine 0.71 Estim Creat Clear Calc 25.94 Est GFR (MDRD) Af Amer 100 Est GFR (MDRD) Non-Af 83 BUN/Creatinine Ratio 19.6 Glucose 135 H Lactic Acid 2.1 H* Calcium 9.2 Total Bilirubin 0.40 AST 23 ALT 19 Alkaline Phosphatase 81 Troponin I High Sens 14 15 Total Protein 7.0 Albumin 2.6 L Globulin 4.4 H Albumin/Globulin Ratio 0.6 L Lipase 33 Urine Color Yellow Urine Clarity Clear Urine pH 7.0 Ur Specific [place] 1.015 Urine Protein 15 H Urine Glucose (UA) 1000 H Urine Ketones 50 H Urine Occult Blood 10 H Urine Nitrite Negative Urine Bilirubin Negative Urine Urobilinogen Normal Ur Leukocyte Esterase Negative Urine RBC 0 SEEN Urine WBC 0-5 SEEN Ur Squamous Epith Cells 0-5 SEEN Urine Bacteria RARE Urine Mucus 0 SEEN Radiography Diagnostic Testing: Clinical Impression(s) from Imaging Studies Abdomen/Pelvis CT 05/25/23 15:26 IMPRESSION: Limited visualization of the bowel due to lack of opacification with contrast and lack of fat. Nonspecific ileus with fecal retention and rectal impaction. Incidental finding of hypoattenuated density within the right common femoral vein possibly representing thrombus. Recommend Doppler scanning of the groin and possibly right lower extremity for more definitive evaluation if indicated Electronically Signed: Santy iWley MD at 17:28 EST , Lumbar Spine CT 05/25/23 15:30 IMPRESSION: Multilevel chronic wedge deformities without definitive evidence for acute fracture. Spinal stenosis at L4-5 more pronounced on the left secondary to bulging disc and facet arthropathy. MRI recommended for further evaluation if clinically warranted Electronically Signed: Santy Wiley MD at 17:37 EST Reading Location ID and State: [facility] / [place] Tel [phone], Service support , Chest X-Ray 05/25/23 16:45 IMPRESSION: Chronic interstitial changes without significant change since previous study Electronically Signed: Santy Wiley MD at 17:19 EST , Discharge Plan Triage Chief Complaint: General Illness ED Provider: Raj De La Rosa Dx/Rx/DC Orders Prescriptions: No Action atorvastatin 40 MG tablet 40 mg PO QHS leflunomide [Arava] 10 MG tablet 10 mg PO DAILY calcium carbonate [Caltrate 600] 600 MG tablet 600 mg PO DAILY Multiple Vitamin, Womens 1 EACH tablet 1 ea PO DAILY cholecalciferol (vitamin D3) [Vitamin D3] 1,000 UNIT tablet 2,000 unit PO DAILY Ferrex 150 Plus 150 MG capsule 150 mg PO DAILYCM Qty: 30 0RF baclofen 10 mg tablet 10 mg PO QHS glimepiride 2 mg tablet 2 mg PO DAILY lactulose 10 gram/15 mL solution 30 ml PO BID simethicone [Gas Relief (simethicone)] 80 mg tablet,chewable 80 mg PO 4X/DAY Rx Instructions: TAKE 1 TABLET BY MOUTH DAILY AFTER MEALS AND AT BEDTIME Farxiga 10 mg tablet 10 mg PO DAILY brimonidine-timolol 0.2-0.5 % drops 1 drp ophthalmic (eye) BID Primary Care Provider: Victor M Cochran Chi Referrals: Victor M Cochran Chi, MD [Primary Care Provider] -
--- NOTE | 2023-05-25 15:26 | EKG12_ITS ---
Test Reason : DYSRHYTMIA Blood Pressure : / mmHG Vent. Rate : 080 BPM Atrial Rate : 080 BPM P-R Int : 138 ms QRS Dur : 074 ms QT Int : 370 ms P-R-T Axes : 079 063 051 degrees QTc Int : 426 ms Normal sinus rhythm Normal ECG Confirmed by LISA HARRY, RAJESH ([id number]), web content editor NALINI STONE ([id number]) on 05/29/2023 11:20:08 A M Referred By: AL Confirmed By:ARHUL GONZALEZ MD
--- NOTE | 2023-05-25 15:26 | CT_ITS ---
STUDY: CT ABDOMEN AND PELVIS WITH CONTRAST REASON FOR EXAM: Female, 83 years old. Lower abdominal pain, right flank pain RADIATION DOSAGE (If Supplied By Facility): CTDIvol = ( 9.40 ) mGy, DLP = ( 284.13 ) mGycm TECHNIQUE: Transaxial images were obtained from the dome of the diaphragm to the symphysis pubis without oral contrast. IV 75mL Isovue-370 was administered. Sagittal and coronal images were reconstructed. Individualized dose optimization techniques were used for this CT. COMPARISON: January 19, 2023. FINDINGS: Mild bibasilar interstitial thickening and emphysematous changes of the left base.. The visualized portions of the heart are within normal limits. Normal liver. Normal gallbladder and extrahepatic biliary system. Normal spleen. Diffusely atrophic pancreas. Normal bilateral adrenal glands. Normal right kidney. Normal left kidney. Examination of the bowel loops limited due to lack of oral contrast and paucity of both intraperitoneal and retroperitoneal fat Normal visualized stomach. Nonspecific ileus with diffuse fecal retention in the colon and rectal impaction.. Diverticular changes of the sigmoid colon without evidence for diverticulitis]. Appendix is not clearly visualized. No definitive evidence for acute appendicitis.. Mild atherosclerotic changes of the aorta without evidence for aneurysm.. Normal inferior vena cava. Normal retroperitoneum. Normal urinary bladder. Uterus not visualized consistent with hysterectomy. Normal abdominal wall. Lumbar spine demonstrates degenerative changes. Multilevel chronic compression deformities. [Left hip prosthesis is observed. CT/Abdomen/Pelvis W IV Cont ONLY IMPRESSION: Limited visualization of the bowel due to lack of opacification with contrast and lack of fat. Nonspecific ileus with fecal retention and rectal impaction. Incidental finding of hypoattenuated density within the right common femoral vein possibly representing thrombus. Recommend Doppler scanning of the groin and possibly right lower extremity for more definitive evaluation if indicated Electronically Signed: Santy Wiley MD at 17:28 EST ,
--- NOTE | 2023-05-25 15:30 | CT_ITS ---
STUDY: CT LUMBAR SPINE WITHOUT CONTRAST REASON FOR EXAM: Female, 83 years old. back pain RADIATION DOSAGE (If Supplied By Facility): CTDIvol = ( 11.51 ) mGy, DLP = ( 288.56 ) mGycm TECHNIQUE: The patient was scanned in a multi detector CT scanner. High resolution transaxial imaging was performed. Images were obtained from to . Sagittal and coronal images were reconstructed. Individualized dose optimization techniques were used for this CT. COMPARISON: None FINDINGS: Normal lumbar lordosis. There is no substantial scoliosis. There is concave deformity of the superior endplates of T12, L1, L2-L3 and L5 without evidence for acute fracture line. L1-2: Normal endplates. Normal disc height and morphology. Normal bilateral facet joints. Normal central canal and bilateral lateral recesses. Normal bilateral intervertebral neural foramina. L2-3: Normal endplates. Normal disc height and morphology. Normal bilateral facet joints. Normal central canal and bilateral lateral recesses. Normal bilateral intervertebral neural foramina. L3-4: Normal endplates. Normal disc height and morphology. Normal bilateral facet joints. Normal central canal and bilateral lateral recesses. Normal bilateral intervertebral neural foramina. L4-5: Normal endplates. Normal disc height and minimal annular bulge with small left foraminal disc/osteophyte protrusion.. Facet arthropathy and thickening of ligamenta flava Normal central canal and bilateral lateral recesses. Mild right neural foraminal stenosis and moderate narrowing on the left. L5-S1: Normal endplates. Normal disc height and morphology. Facet arthropathy.. Normal central canal and bilateral lateral recesses. Normal bilateral intervertebral neural foramina. Normal visualized paraspinous soft tissue structures. CT/Spine Lumbar without Contrast IMPRESSION: Multilevel chronic wedge deformities without definitive evidence for acute fracture. Spinal stenosis at L4-5 more pronounced on the left secondary to bulging disc and facet arthropathy. MRI recommended for further evaluation if clinically warranted Electronically Signed: Santy Wiley MD at 17:37 EST ,
[2023-05-25] MEDS: 0.9% Normal Saline (500mL Bag) 500 ML 1000 ML IV (15:48)
[2023-05-25 15:53] LABS: Mucous, Urine 0 SEEN /hpf (<or=2+); Red Blood Cells-Urine 0 SEEN /hpf (0-5)
[2023-05-25 15:56] LABS: Color, Urine Yellow (Yellow); Glucose, Dipstick 1000 mg/dl (Normal); Ketone-Dipstick 50 mg/dl (Negative); Leukocyte Esterase-Dipstick Negative /ul (Negative); Nitrite-Dipstick Negative (Negative); Occult Blood-Urine 10 /ul (Negative); Protein-Dipstick 15 mg/dl (Negative); Specific Gravity, Urine 1.015 (1.002-1.030); Urine Bilirubin Dipstick Negative (Negative); Urine Clarity Clear (Clear); Urine Urobilinogen Normal (Normal)
[2023-05-25 16:06] LABS: Bacteria RARE /hpf (None Seen); Squamous Epithelial Cells - UA 0-5 SEEN /hpf (5-10); White Blood Cells 0-5 SEEN /hpf (0-5)
[2023-05-25 16:13] LABS: Absolute Lymphocyte Count 1.32 X10^3/uL (0.83-4.51); Absolute Neutrophil Count 6.5 X10^3/uL (2.0-7.7); Basophil# 0.06 X10^3/uL; Basophil% 0.7 % (0-1); Eosinophil# 0.26 X10^3/uL; Eosinophils% 2.8 % (0-5); Hematocrit 42.2 % (37-47); Hemoglobin 12.7 g/dL (12.0-15.0); Lymphocyte # 1.32 X10^3/ul (0.83-4.51); Lymphocyte % 14.5 % (19-41); Mean Corp Hgb Conc 30.1 g/dL (32-36); Mean Corpuscular Hgb 31.7 pg (27.0-32.0); Mean Corpuscular Volume 105.2 fL (81-99); Mean Platelet Vol. 8.2 fl (6.2-12.0); Monocyte# 0.91 X10^3/uL; NRBC Flagged by Analyzer 0 % (0-5); Neutrophil # 6.54 X10^3/uL (2.7-7.7); Neutrophil % 71.6 % (47-70); Platelet Count 367 K/mm3 (150-450); RBC Distribution Width CV 13.7 % (11.6-14.6); RBC Distribution Width SD 52.9 fl (35.1-43.9); Red Blood Count 4.01 M/mm3 (4.2-5.4); White Blood Count 9.1 K/mm3 (4.4-11.0)
[2023-05-25 16:30] LABS: ALB/GLOB Ratio 0.6 RATIO (0.9-2.4); AST(SGOT) 23 U/L (15-37); Alanine Aminotransfer ALT/SGPT 19 U/L (13-56); Albumin, Serum 2.6 g/dL (3.2-5.0); Alkaline Phosphatase 81 U/L (45-117); Anion Gap 4 (5-15); BUN 14 mg/dL (7-18); BUN/Creat Ratio 19.6 RATIO (10-20); Calcium,Total 9.2 mg/dL (8.5-10.1); Chloride 104 mmol/L (98-107); Creatinine, Serum 0.71 mg/dL (0.55-1.02); EST Glomerular Filtration Rate 83 mL/min (>60); Est Glom Filt Rate - Afr Amer 100 mL/min (>60); Estimated Creatinine Clearance 25.94 ml/min; Globulin 4.4 g/dL (2.2-4.2); Glucose 135 mg/dL (74-106); Lipase 33 U/L (13-75); Potassium 4.4 mmol/L (3.5-5.1); Sodium Level 137 mmol/L (136-145); Troponin-I HS (w/2H Reflex) 14 pg/mL (3.0-54.0)
[2023-05-25 16:31] LABS: Lactic Acid 2.1 mmol/L (0.4-1.9)
--- NOTE | 2023-05-25 16:45 | RAD_ITS ---
STUDY: X-RAY CHEST REASON FOR EXAM: Female, 83 years old. Weakness TECHNIQUE: AP portable COMPARISON: March 13, 2023 FINDINGS: Mild interstitial thickening in the bilateral upper lobes and left lower lobe. There is no demonstrated pleural abnormality. Normal size heart. Normal mediastinum and zbigniew. Normal visualized pulmonary arteries. Mildly calcified calcified aortic arch and descending thoracic aorta. Dorsal spine and shoulders demonstrate degenerative changes. Normal visualized ribs, and clavicles. There is no demonstrated abnormality of the visualized soft tissue structures of the upper abdomen. RAD/Chest 1 View (Portable) IMPRESSION: Chronic interstitial changes without significant change since previous study Electronically Signed: Santy Wiley MD at 17:19 EST ,
[2023-05-25 17:16] VITALS: BP 164/87; PULSE 80; RESP 16; O2SAT 94
[2023-05-25 17:51] LABS: Reflex Troponin-HS? (from REC) Y
--- NOTE | 2023-05-25 18:20 | US_ITS ---
STUDY: VENOUS DOPPLER ULTRASOUND - RIGHT LOWER EXTREMITY REASON FOR EXAM: Female, 83 years old. pain TECHNIQUE: Ultrasound evaluation of the deep vein system to include starkey-scale imaging and compression was performed. Starkey-scale imaging and Doppler sonographic evaluation, including duplex spectral analysis and qualitative color flow sonography, was performed. COMPARISON: None. FINDINGS: Common Femoral Vein: Normal compression, spontaneity and augmentation. Normal color Doppler. Common Femoral Vein/Greater Saphenous Junction: Normal compression, spontaneity and augmentation. Normal color Doppler. Deep Femoral Vein: Normal compression, spontaneity and augmentation. Normal color Doppler. Femoral Proximal: Normal compression, spontaneity and augmentation. Normal color Doppler. Femoral Middle: Normal compression, spontaneity and augmentation. Normal color Doppler. Femoral Distal: Normal compression, spontaneity and augmentation. Normal color Doppler. Popliteal Vein: Normal compression, spontaneity and augmentation. Normal color Doppler. Posterior Tibial Vein: Normal compression, spontaneity and augmentation. Normal color Doppler. Peroneal Vein: Normal compression, spontaneity and augmentation. Normal color Doppler. US/Venous Duplex Imag/Limited/Uni IMPRESSION: Normal venous Doppler ultrasound of the lower extremity. Electronically Signed: Santy Wiley MD at 19:34 EST ,
[2023-05-25 18:27] LABS: Troponin-I HS 15 pg/mL (3.0-54.0)
[2023-05-25 18:43] VITALS: BP 164/92; PULSE 84; RESP 18; TEMP 36.9; O2SAT 94
--- NOTE | 2023-05-25 19:41 | HP.PCM.HOS_ITS ---
HPI - General General Date of Admission: 05/25/23 Date of Service: 05/25/23 Chief Complaint: Weakness, debility, unsafe in home, high fall risk. HPI Narrative The patient is an 83 y/o F w/ PMHx: Rheumatoid arthritis, HLD, Diabetes mellitus type II, Chronic Fe Deficiency anemia who presents to the [facility] ED on 05/25/23 with history of generalized debility and weakness with inability to take care of herself at home with poor oral intake and weight loss associated possibly secondary to inability to get around well and make her self meals with ongoing back discomfort and some right flank discomfort as well as urinary frequency which has been chronic prompting family to eventually bring her in for PCP recommendation for consideration of skilled placement. Patient has had no recent significant upper respiratory symptoms of note. Patient and family report last bowel movement the day prior and decent sized. They do note that she is chronically on lactulose because of her constipation. Work-up in the ED included T98.4, heart 84, BP 164/92, respiratory rate 18, 94% on room air, CBC with WBC 9.1, hemoglobin 12.7, platelet 367 without marked shift, CMP with glucose 135 otherwise not marked appearing, troponin initial 14 with delta r epeat 15, lipase 33, lactic acid very minimally elevated 2.1, urinalysis with specific gravity 1.015, protein 15, glucose 1000, ketone 10, occult blood 10 with negative nitrite, negative leukocyte esterase and no urine WBCs/RBCs with rare urine bacteria, rapid SARS COVID and influenza antigen both positive with noted presence of influenza B antigen only, CT abdomen and pelvis with limited visualization of bowel due to lack of opacification with contrast and lack of fat, nonspecific ileus with fecal retention and impaction, incidental finding of hyperattenuating density within the right common femoral vein possibly a thrombus but unclear with recommendation for Doppler scanning of the groin and possibly right lower extremity, CT lumbar spine with multilevel chronic wedge deformity without definitive evidence of any acute fracture, spinal stenosis L4- 5 more pronounced on the left secondary to bulging disc and facet arthropathy, chest x-ray with chronic interstitial changes without any significant change, right lower extremity venous duplex ultrasound preliminary read negative, final pending. [facility] Medical History (Updated 05/25/23 @ 19:[address] Gogo Browne MD) Diabetes High cholesterol Iron deficiency anemia Osteoarthritis Rheumatoid arthritis Home Medications cholecalciferol (vitamin D3) 25 mcg (1,000 unit) tablet (Vitamin D3) 2,000 unit PO DAILY SUPPLEMENT 07/25/14 [History Last Taken 05/25/23] acetaminophen 500 mg tablet (Tylenol Extra Strength) 1,000 mg PO BID BACK PAIN 05/25/23 [History Last Taken 05/25/23] baclofen 10 mg tablet 10 mg PO QHS MUSCLE SPASMS 05/25/23 [History Last Taken 05/24/23] brimonidine 0.2 %-timolol 0.5 % eye drops 1 drp ophthalmic (eye) 0700,1900 GLAUCOMA 05/25/23 [History Last Taken 05/25/23] dapagliflozin propanediol 10 mg tablet (Farxiga) 10 mg PO DAILY BLOOD SUGARS 05/25/23 [History Last Taken 05/25/23] lactulose 10 gram/15 mL oral solution 30 ml PO BID BOWELS 05/25/23 [History Last Taken 05/25/23] simethicone 80 mg chewable tablet (Gas Relief (simethicone)) 80 mg PO BID GAS RELIEF 05/25/23 [History Last Taken 05/25/23] Allergy/AdvReac Type Severity Reaction Status Date / Time alendronate sodium Allergy Anaphylaxis Verified 05/25/23 14:57 [From Fosamax] Penicillins Allergy Swelling Verified 05/25/23 14:57 Family History (Updated 05/25/23 @ 20:[address] Gogo Browne MD) Mother Alzheimer disease Father Myocardial infarction Hypertension Heart disease CAD (coronary artery disease) Surgical History (Updated 05/25/23 @ 19:[address] Gogo Browne MD) History of surgery on arm S/P ORIF (open reduction internal fixation) fracture Social History (Updated 05/25/23 @ 19:[address] Gogo Browne MD) household members: none Smoking Status: Never smoker alcohol intake: never substance use type: does not use ROS ROS Narrative Admission Review of Systems: CONSTITUTIONAL: No weight loss, fever, chills, + weakness or fatigue. HEENT: Eyes: No visual loss, blurred vision, double vision or yellow sclerae. Ears, Nose, Throat: No hearing loss, sneezing, congestion, runny nose or sore throat. SKIN: + Very staged abrasions, ecchymoses primarily to extremities. CARDIOVASCULAR: No chest pain, chest pressure or chest discomfort, palpitations, edema, orthopnea, syncopal events. RESPIRATORY: No shortness of breath, cough or sputum, wheezing, hemoptysis. GASTROINTESTINAL: + Poor intake but primarily related with ability to get to her food, chronic abdominal discomfort with constipation. No nausea, vomiting or diarrhea, melena, BRBPR. GENITOURINARY: + Chronic urinary frequency. No dysuria, urgency or retention. NEUROLOGICAL: No headache, dizziness, syncope, paralysis, ataxia, numbness or tingling in the extremities, focal weakness, change in bowel or bladder control, seizure. MUSCULOSKELETAL: + muscle, back pain, joint pain or stiffness. HEMATOLOGIC: + anemia, easy bleeding/bruising. LYMPHATICS: No enlarged nodes. No history of splenectomy. PSYCHIATRIC: No history of depression or anxiety. ENDOCRINOLOGIC: No reports of sweating, cold or heat intolerance. No polyuria or polydipsia. ALLERGIES: + History of anaphylaxis. Vital Signs Vital Signs Vital Signs: 05/25/23 14:57 05/25/23 15:21 05/25/23 17:16 Temperature 98.6 F Temperature Source Temporal Pulse Rate 94 80 Respiratory Rate 16 16 Respiratory Effort Normal Respiratory Pattern Normal Blood Pressure 143/77 H 164/87 H Blood Pressure Mean 99 112 Pulse Ox 100 94 Oxygen Delivery Method Room Air Room Air 05/25/23 18:43 Temperature 98.4 F Temperature Source Oral Pulse Rate 84 Respiratory Rate 18 Respiratory Effort Respiratory Pattern Blood Pressure 164/92 H Blood Pressure Mean 116 Pulse Ox 94 Oxygen Delivery Method Room Air Weight Weight: 85 lb Body Mass Index (BMI) 15.5 Physical Exam Narrative Physical Examination: General: Awake, alert, oriented x 3 and cooperative, laying in the ED bed, fatigued but no acute distress and no acute complaints at this time. Skin: Normal color, normal turgor, no icterus, no cyanosis except occasional staged ecchymoses, abrasion. HEENT: AT/NC, EOMI, PERRLA, dry MM, no carotid bruits or JVD noted. Lungs: Mildly diminished, greater bases, proper effort, no rales, ronchi or wheezing. Heart: Regular rate and rhythm; no gallop, rub audible. Abdomen: Soft, mild generalized discomfort, no marked severe distention, significantly hyperactive BS, constipated, no appreciated HSM. Extremities: No cyanosis, no clubbing, pedal to mid carter pitting edema Neurological: Patient awake, alert, oriented as noted, cognitive function appears baseline intact; pupils equally reactive to light and accommodation, cranial nerves grossly normal, moving all 4 extremities, no focal deficits, strength severely globally decreased secondary to acute presentation and underlying comorbidities. Psychiatric: Affect appears flat, fatigued, no acute evidence of depressive or anxiety feelings. Results Lab / Micro Data 05/25/23 15:37 05/25/23 15:37 Labs: Laboratory Results - last 24 hr 05/25/23 15:37: WBC 9.1, RBC 4.01 L, Hgb 12.7, Hct 42.2, MCV 105.2 H, MCH 31.7, MCHC 30.1 L, RDW Std Deviation 52.9 H, RDW Coeff of Ed 13.7, Plt Count 367, MPV 8.2, Immature Gran % (Auto) 0.400, Neut % (Auto) 71.6 H, Lymph % (Auto) 14.5 L, [place] % (Auto) 10.0, Eos % (Auto) 2.8, Baso % (Auto) 0.7, Absolute Neuts (auto) 6.5, Absolute Lymphs (auto) 1.32, Nucleated RBC % 0, Sodium 137, Potassium 4.4, Chloride 104, Carbon Dioxide 29.0, Anion Gap 4 L, BUN 14, Creatinine 0.71, Estim Creat Clear Calc 25.94, Est GFR (MDRD) Af Amer 100, Est GFR (MDRD) Non-Af 83, BUN/Creatinine Ratio 19.6, Glucose 135 H, Lactic Acid 2.1 H*, Calcium 9.2, Total Bilirubin 0.40, AST 23, ALT 19, Alkaline Phosphatase 81, Troponin I High Sens 14, Total Protein 7.0, Albumin 2.6 L, Globulin 4.4 H, Albumin/Globulin Ratio 0.6 L, Lipase 33, Urine Color Yellow, Urine Clarity Clear, Urine pH 7.0, Ur Specific Prue 1.015, Urine Protein 15 H, Urine Glucose (UA) 1000 H, Urine Ketones 50 H , Urine Occult Blood 10 H, Urine Nitrite Negative, Urine Bilirubin Negative, Urine Urobilinogen Normal, Ur Leukocyte Esterase Negative, Urine RBC 0 SEEN, U rine WBC 0-5 SEEN, Ur Squamous Epith Cells 0-5 SEEN, Urine Bacteria RARE, Urine Mucus 0 SEEN 05/25/23 18:05: Troponin I High Sens 15 Micro: Microbiology 05/25/23 15:37 Nasal Secretion SARS-CoV-2 & FLU Antigen (Rapid) - Final SARS-CoV-2 (COVID 19) Influenzae B Imagaing Radiology Impression Abdomen/Pelvis CT 05/25/23 15:26 IMPRESSION: Limited visualization of the bowel due to lack of opacification with contrast and lack of fat. Nonspecific ileus with fecal retention and rectal impaction. Incidental finding of hypoattenuated density within the right common femoral vein possibly representing thrombus. Recommend Doppler scanning of the groin and possibly right lower extremity for more definitive evaluation if indicated Electronically Signed: Santy Wiley MD at 17:28 EST Reading Location ID and State: [facility] / [place] Tel [phone], Service support , Lumbar Spine CT 05/25/23 15:30 IMPRESSION: Multilevel chronic wedge deformities without definitive evidence for acute fracture. Spinal stenosis at L4-5 more pronounced on the left secondary to bulging disc and facet arthropathy. MRI recommended for further evaluation if clinically warranted Electronically Signed: Santy Wiley MD at 17:37 EST Reading Location ID and State: [address] [place] [address] Tel [phone], Service support , Chest X-Ray 05/25/23 16:45 IMPRESSION: Chronic interstitial changes without significant change since previous study Electronically Signed: Santy Wiley MD at 17:19 EST Reading Location ID and State: [facility] / [place] Tel [phone], Service support , Venous Duplex 05/25/23 18:20 IMPRESSION: Normal venous Doppler ultrasound of the lower extremity. Electronically Signed: Santy Wiley MD at 19:34 EST , Assessment & Plan Assessment/Plan (1) Adult failure to thrive: PLAN: Plan The patient is an 83 y/o F w/ PMHx: Rheumatoid arthritis, HLD, Diabetes mellitus type II, Chronic Fe Deficiency anemia who presents to the [facility] ED on 05/25/23 with history of generalized debility and weakness with inability to take care of herself at home with poor oral intake and weight loss associated possibly secondary to inability to get around well and make her self meals with ongoing back discomfort and some right flank discomfort as well as urinary frequency which has been chronic prompting family to eventually bring her in for PCP recommendation for consideration of skilled placement. Patient has had no recent significant upper respiratory symptoms of note. #1. Adult failure to thrive with progressive debility, weakness with severe high fall risk, unsafe to live alone complicated by #4 worsening: Will admit to medical surgical floor, maintain on fall precautions, further evaluation as noted for incidental SARS COVID and influenza B antigens, pending final read on duplex ultrasound but appears negative at this point and suspect over read, will consult PT/OT/case management for discharge planning with skilled facility needs given advanced age and significant chronic back changes awaiting eventual follow-up with Dr. Price for laminectomy, pending debility may consider consultation during her admission but will defer until assessments made. #2. Incidentally noted positive SARS COVID and influenza B antigen, suspected false positive: Given no symptoms lower suspicion, full respiratory viral panel and COVID PCR requested to be cautious however #3. Incidental hyperattenuating density right common femoral vein, unclear etiology: Right lower extremity duplex ultrasound requested per ED with noted preliminary negative, awaiting final read. #4. Multilevel chronic wedge deformity, spinal stenosis L4-5 with chronic back pain and debility associated: CT imaging with incidentally noted significant chronic changes of the lumbar spine, no acute findings, will maintain on fall precautions, PT/OT/CM consultation for discharge planning. Encourage frequent positional changes. Patient does have upcoming evaluation again by Dr. Price with planned outpatient laminectomy at some point. #5. Chronic constipation complicated by nonspecific ileus with fecal retention: Patient with bowel movement today for which was formed per discussion with patient and family with ongoing usage of twice daily lactulose. At this point we will continue and will administer some GoLytely as well as an enema and continue to monitor. Will maintain on clears until bowel movements are moving further. #6. Chronic iron deficiency anemia: Admission hemoglobin 12.7, although as noted MCV 105.2, continue iron supplementation, trend CBC. #7. Diabetes mellitus type II: Hold oral home regimen, ADA diet, accu checks w/ ISS. #8. Rheumatoid arthritis: Encourage continued outpatient follow-up with rheumatology, continue patient low-dose as needed [place], continue patient home leflunomide, PT/OT/case management consulted for discharge planning. #9. Hyperlipidemia: Continue patient on statin therapy. #10. Severe protein calorie malnutrition: Evidenced by significantly reduced BMI, obvious severe muscle and fat loss, nutrition consulted for recommendation, supplementations per their discretion. #11. DVT prophylaxis: Heparin. #12. CODE status: Patient CADY is her brother who is present and living will is currently in place. Discussed CODE status at length including difference between FULL code, DNR-CCA and DNR-CC status. Following discussions about the di fferences in these status, requested DNR-CCA, no intubation status. Advanced Care Planning Face to Face Time: 16 minutes. Charges/Coding Visit Charges Inpatient E&M: 11331 Init Hosp L3 Procedures Hospitalists Procedures: 25595 Advncd Care Plan 30 Min
[2023-05-25 19:51] LABS: Reflex Lactate? Y
[2023-05-25 20:00] VITALS: BP 156/77; PULSE 73; RESP 18; O2SAT 97
[2023-05-25 20:11] LABS: Phosphorus 2.5 mg/dL (2.5-4.9)
[2023-05-25 20:33] LABS: Procalcitonin 0.11 ng/mL (0.00-0.09)
[2023-05-25 20:37] LABS: Lactic Acid 1.3 mmol/L (0.4-1.9)
[2023-05-25 20:52] VITALS: BMI 14.6
[2023-05-25 21:10] VITALS: O2SAT 98
[2023-05-25 21:21] VITALS: BP 147/71; PULSE 80; RESP 15; TEMP 36.4; O2SAT 100
[2023-05-25] MEDS: 0.9% Normal Saline (1000mL) 1,000 ML 75 ML IV (23:01)
[2023-05-25] MEDS: Pantoprazole Sodium 40 MG in 0.9% Normal Saline (100mL MB+) 100 ML 330 MG IV (23:01)
[2023-05-25] MEDS: Lactulose 20 GM/30 ML UDC PO (23:01)
[2023-05-25] MEDS: Electrolyte Solution/Peg's 4000 ML 1000 ML PO (23:02)
[2023-05-25] MEDS: Menthol/Lanolin/Calamine/Znox 113 GM Tube 1 APPLIC TOPICAL (23:02)
[2023-05-25] MEDS: BRIMONIDINE 0.2% 5ML BOTTLE 1 DRP EACH EYE (23:02)
[2023-05-25] MEDS: Timolol 0.5% 5ML OPTH.BTL 1 DRP EACH EYE (23:02)
[2023-05-25] MEDS: Baclofen 10 MG Tablet PO (23:03)
[2023-05-25] MEDS: Heparin Injection (Vial) 5,000 UNIT/ML VIAL 5000 UNIT SC (23:03)
[2023-05-25] MEDS: SimETHICONE 80 MG Chewable Tablet PO (23:03)
[2023-05-26 00:58] LABS: Bedside Glucose 76 mg/dL (74-106)
[2023-05-26 03:20] VITALS: BP 130/73; PULSE 85; RESP 15; TEMP 36.3; O2SAT 100
[2023-05-26 05:49] VITALS: BMI 14.6
[2023-05-26 08:45] LABS: Absolute Lymphocyte Count 0.98 X10^3/uL (0.83-4.51); Absolute Neutrophil Count 5.5 X10^3/uL (2.0-7.7); Basophil# 0.03 X10^3/uL; Basophil% 0.4 % (0-1); Eosinophil# 0.19 X10^3/uL; Eosinophils% 2.6 % (0-5); Hematocrit 42.5 % (37-47); Hemoglobin 13.3 g/dL (12.0-15.0); Lymphocyte # 0.98 X10^3/ul (0.83-4.51); Lymphocyte % 13.5 % (19-41); Mean Corp Hgb Conc 31.3 g/dL (32-36); Mean Corpuscular Volume 102.4 fL (81-99); Mean Platelet Vol. 8.4 fl (6.2-12.0); Monocyte# 0.57 X10^3/uL; Monocyte% 7.8 % (0-10); NRBC Flagged by Analyzer 0 % (0-5); Neutrophil # 5.49 X10^3/uL (2.7-7.7); Neutrophil % 75.4 % (47-70); Platelet Count 396 K/mm3 (150-450); RBC Distribution Width CV 13.7 % (11.6-14.6); RBC Distribution Width SD 51.9 fl (35.1-43.9); Red Blood Count 4.15 M/mm3 (4.2-5.4); White Blood Count 7.3 K/mm3 (4.4-11.0)
[2023-05-26 09:09] LABS: ALB/GLOB Ratio 0.6 RATIO (0.9-2.4); AST(SGOT) 14 U/L (15-37); Alanine Aminotransfer ALT/SGPT 18 U/L (13-56); Albumin, Serum 2.5 g/dL (3.2-5.0); Alkaline Phosphatase 79 U/L (45-117); Anion Gap 6 (5-15); BUN 10 mg/dL (7-18); BUN/Creat Ratio 17.8 RATIO (10-20); Calcium,Total 8.8 mg/dL (8.5-10.1); Chloride 101 mmol/L (98-107); Creatinine, Serum 0.56 mg/dL (0.55-1.02); EST Glomerular Filtration Rate 109 mL/min (>60); Est Glom Filt Rate - Afr Amer 132 mL/min (>60); Estimated Creatinine Clearance 26.04 ml/min; Glucose 80 mg/dL (74-106); Potassium 3.9 mmol/L (3.5-5.1); Protein, Total 6.5 g/dL (6.4-8.2); Sodium Level 137 mmol/L (136-145)
[2023-05-26 09:20] VITALS: BP 127/64; PULSE 89; RESP 16; TEMP 36.4; O2SAT 100
[2023-05-26] MEDS: Heparin Injection (Vial) 5,000 UNIT/ML VIAL 5000 UNIT SC ×2 (09:32→20:26)
[2023-05-26] MEDS: SimETHICONE 80 MG Chewable Tablet PO ×4 (09:33→20:26)
[2023-05-26] MEDS: Cholecalciferol (VIT D3) 25 MCG TABLET (1,000 UNITS) 50 MCG PO (09:33)
[2023-05-26] MEDS: Lactulose 20 GM/30 ML UDC PO (09:33)
[2023-05-26] MEDS: Timolol 0.5% 5ML OPTH.BTL 1 DRP EACH EYE ×2 (09:35→20:26)
[2023-05-26] MEDS: BRIMONIDINE 0.2% 5ML BOTTLE 1 DRP EACH EYE ×2 (09:35→20:26)
[2023-05-26] MEDS: Pantoprazole Sodium 40 MG in 0.9% Normal Saline (100mL MB+) 100 ML 330 MG IV ×2 (09:36→20:26)
[2023-05-26] MEDS: Menthol/Lanolin/Calamine/Znox 113 GM Tube 1 APPLIC TOPICAL ×4 (09:37→20:27)
[2023-05-26] MEDS: Insulin Lispro 100 UNIT/ML INSULN.PEN SC (10:05)
[2023-05-26 10:17] LABS: Bedside Glucose 188 mg/dL (74-106)
--- NOTE | 2023-05-26 10:52 | CASEMGMT ---
Per patient's chart patient is at [facility] for placement. SW met with patient. Introduced self and role at [facility]. SW spoke with patient about a d/c plan. Patient said she is hoping to get home soon. Patient's PCP is Dr Cochran. SW asked patient if she was thinking of going to [facility] TCU since Dr Cochran is the physician or if patient would like a list of facilities that take her insurance. Patient said she would like a list of facilities. SW asked Karina d/c wind science and planning to please print a list. Joanne TERESA
--- NOTE | 2023-05-26 11:04 | CASEMGMT ---
Discharge Planning A list of?SNF providers including quality and resource use data and consistent with the patient's preferred geographic region, medical needs, and insurance network was created in [facility] Guide.? This list was provided to the SW. Karina Frey Discharge Planning Asst.
--- NOTE | 2023-05-26 11:07 | CASEMGMT ---
Therapy spoke with SW and said patient needs placement. SW met with patient and explained their recommendations. SW provided patient with a list of[facility] facility providers including quality and resource use data and consistent with patient?s preferred geographic region, medical needs, and insurance network were provided from the [facility] Guide. Patient said she wants to talk with her brother. SW asked if SW could call her brother and patient said he should be here anytime. SW will check back. Joanne TERESA
[2023-05-26 11:30] LABS: Bedside Glucose 143 mg/dL (74-106)
[2023-05-26] MEDS: Acetaminophen 325 MG Tablet 650 MG PO (13:26)
--- NOTE | 2023-05-26 13:32 | CASEMGMT ---
SW went to patient's room and patient's brother was not present. SW called patient's brother and there was no answer. SW will continue to try and talk with patient's brother to assist with picking a nursing facility. Joanne Anderson [employer]
--- NOTE | 2023-05-26 14:24 | PCM.PN.HOSP ---
Reason for Visit Reason for Visit: Diagnoses Adult failure to thrive (05/25/23) Subjective Subjective Patient seen at bedside this morning. Was lying comfortably in bed, conversing normally, no acute distress. Patient is very thin and frail appearing. States she has mild abdominal distention this morning, similar to yesterday. States she did have a soft bowel movement prior to admission but no bowel movement since then. Has been taking the laxative medications and received an enema thus far without a bowel movement. Patient otherwise has not gotten out of bed yet or work to physical therapy since arriving to the floor. She feels weak at baseline but otherwise denies any acute concerns this morning. Objective Data Objective Data Vital Signs: Vital Signs Temp Pulse Resp BP Pulse Ox O2 Del Method 97.6 F L 89 16 127/64 H 100 Room Air 05/26/23 09:20 05/26/23 09:20 05/26/23 09:20 05/26/23 09:20 05/26/23 09:20 05/26/23 13:24 Oxygen Delivery Method Room Air Weight: 38.7 kg Body Mass Index (BMI) 14.6 Intake & Output: Intake and Output for Last 24 Hours 05/24/23 05/25/23 05/26/23 23:59 23:59 23:59 Intake Total 610 / 610 1650 / 1650 Output Total 100 / 100 650 / 650 Balance 510 / 510 1000 / 1000 Lab / Micro Data 05/26/23 07:50 05/26/23 07:50 Labs: Laboratory Results - last 24 hr 05/25/23 15:37: WBC 9.1, RBC 4.01 L, Hgb 12.7, Hct 42.2, MCV 105.2 H, MCH 31.7, MCHC 30.1 L, RDW Std Deviation 52.9 H, RDW Coeff of Ed 13.7, Plt Count 367, MPV 8.2, Immature Gran % (Auto) 0.400, Neut % (Auto) 71.6 H, Lymph % (Auto) 14.5 L, [place] % (Auto) 10.0, Eos % (Auto) 2.8, Baso % (Auto) 0.7, Absolute Neuts (auto) 6.5, Absolute Lymphs (auto) 1.32, Nucleated RBC % 0, Sodium 137, Potassium 4.4, Chloride 104, Carbon Dioxide 29.0, Anion Gap 4 L, BUN 14, Creatinine 0.71, Estim Creat Clear Calc 25.94, Est GFR (MDRD) Af Amer 100, Est GFR (MDRD) Non-Af 83, BUN/Creatinine Ratio 19.6, Glucose 135 H, Lactic Acid 2.1 H*, Calcium 9.2, Total Bilirubin 0.40, AST 23, ALT 19, Alkaline Phosphatase 81, Troponin I High Sens 14, Total Protein 7.0, Albumin 2.6 L, Globulin 4.4 H, Albumin/Globulin Ratio 0.6 L, Lipase 33, Urine Color Yellow, Urine Clarity Clear, Urine pH 7.0, Ur Specific Armour 1.015, Urine Protein 15 H, Urine Glucose (UA) 1000 H, Urine Ketones 50 H, Urine Occult Blood 10 H, Urine Nitrite Negative, Urine Bilirubin Negative, Urine Urobilinogen Normal, Ur Leukocyte Esterase Negative, Urine RBC 0 SEEN, Urine WBC 0-5 SEEN, Ur Squamous Epith Cells 0-5 SEEN, Urine Bacteria RARE, Urine Mucus 0 SEEN 05/25/23 18:05: Phosphorus 2.5, Magnesium 2.0, Troponin I High Sens 15 05/25/23 19:38: Lactic Acid 1.3 05/25/23 20:00: Procalcitonin 0.11 H 05/25/23 23:15: POC Glucose 76 05/26/23 03:28: POC Glucose 143 H 05/26/23 07:50: WBC 7.3, RBC 4.15 L, Hgb 13.3, Hct 42.5, MCV 102.4 H, MCH 32.0, MCHC 31.3 L, RDW Std Deviation 51.9 H, RDW Coeff of Ed 13.7, Plt Count 396, MPV 8.4, Immature Gran % (Auto) 0.300, Neut % (Auto) 75.4 H, Lymph % (Auto) 13.5 L, [place] % (Auto) 7.8, Eos % (Auto) 2.6, Baso % (Auto) 0.4, Absolute Neuts (auto) 5.5, Absolute Lymphs (auto) 0.98, Nucleated RBC % 0, Sodium 137, Potassium 3.9, Chloride 101, Carbon Dioxide 30.0, Anion Gap 6, BUN 10, Creatinine 0.56, Estim Creat Clear Calc 26.04, Est GFR (MDRD) Af Amer 132, Est GFR (MDRD) Non-Af 109, BUN/Creatinine Ratio 17.8, Glucose 80, Calcium 8.8, Total Bilirubin 0.40, AST 14 L, ALT 18, Alkaline Phosphatase 79, Total Protein 6.5, Albumin 2.5 L, Globulin 4.0, Albumin/Globulin Ratio 0.6 L 05/26/23 09:58: POC Glucose 188 H Micro: Microbiology 05/25/23 21:10 Mucosa - Nasopharyngeal Coronavirus COVID-19 PCR - Final 05/25/23 21:10 Mucosa - Nasopharyngeal Respiratory Panel (PCR) - Final 05/25/23 15:37 Nasal Secretion SARS-CoV-2 & FLU Antigen (Rapid) - Final SARS-CoV-2 (COVID 19) Influenzae B Radiography Diagnostic Testing: Radiology Impression Abdomen/Pelvis CT 05/25/23 15:26 IMPRESSION: Limited visualization of the bowel due to lack of opacification with contrast and lack of fat. Nonspecific ileus with fecal retention and rectal impaction. Incidental finding of hypoattenuated density within the right common femoral vein possibly representing thrombus. Recommend Doppler scanning of the groin and possibly right lower extremity for more definitive evaluation if indicated Electronically Signed: Santy Wiley MD at 17:28 EST , Lumbar Spine CT 05/25/23 15:30 IMPRESSION: Multilevel chronic wedge deformities without definitive evidence for acute fracture. Spinal stenosis at L4-5 more pronounced on the left secondary to bulging disc and facet arthropathy. MRI recommended for further evaluation if clinically warranted Electronically Signed: Santy Wiley MD at 17:37 EST , Chest X-Ray 05/25/23 16:45 IMPRESSION: Chronic interstitial changes without significant change since previous study Electronically Signed: Santy Wiley MD at 17:19 EST , Venous Duplex 05/25/23 18:20 IMPRESSION: Normal venous Doppler ultrasound of the lower extremity. Electronically Signed: Santy Wiley MD at 19:34 EST Reading Location ID and State: [address] [place] [address] Tel , Service support , Physical Exam Const alert and no apparent distress Constitutional Narrative: Pleasant elderly female, very thin and frail appearing, laying comfortably in bed, conversing normally, no acute distress. General Appearance: cooperative and comfortable HEENT normocephalic, head/scalp atraumatic, hearing grossly normal bilaterally, nasal mucous membranes and turbinates normal and moist oral mucous membranes Eyes PERRL, EOMs intact bilaterally and conjunctivae normal Neck full ROM, no lymphadenopathy and supple Lymph Lymphatic: no lymphadenopathy noted Chest inspection of chest normal Resp normal respiratory effort, normal air movement, no use of accessory muscles and clear to auscultation bilaterally Cardio regular rate, regular rhythm, no murmurs and peripheral pulses 2+ throughout GI GI Narrative: Mild abdominal distention noted. Soft, nontender to palpation. Normoactive bowel sounds. Back/Spine normal ROM Extremity normal to inspection, full ROM and no pedal edema Skin no rashes or lesions noted Neuro moves all extremities and no focal motor deficits Speech: speech normal Psych mental status grossly normal Assessment & Plan Assessment/Plan (1) Adult failure to thrive: PLAN: Plan Patient is an 83-year-old female who presented to [facility] ED on 05/25/2023 with failure to thrive at home. 1. Adult failure to thrive, progressive debility, severe protein calorie malnutrition Patient lives at home by herself. Family has noted worsening debility and weakness at home, with significant weight loss and inability to take care of herself. Patient brought in into the hospital by family per PCP recommendation for consideration of skilled placement. Severe malnutrition evidenced by significantly reduced BMI, obvious severe muscle and fat loss. ? PT/OT/case management following. Nutrition following. Ensure added to meals. Fall precautions in place. Monitor. 2. Chronic constipation CT abdomen pelvis on admit did show concern for nonspecific ileus with fecal retention. However, patient reported soft bowel movement prior to admission and KUB read seems to be inaccurate due to patient's severe thinness. On home twice daily lactulose. ? Patient initiated on GoLytely and enemas on admit, with no stool production to this point. Patient has mild abdominal distention with no pain. Suspect she will begin to have bowel movement soon, will de-escalate to home lactulose and monitor. 3. False positive COVID and influenza B tests ? COVID and influenza B initially positive on admission but were suspected to be false positives, as patient was asymptomatic. Repeat testing negative. Chronic medical conditions: ? 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 PT/OT/case management following as above. Patient notably does have upcoming evaluation with Dr. Price with pain management, with planned outpatient laminectomy at some point. ? Chronic iron deficiency anemia: Stable at baseline, monitor. ? Type 2 diabetes mellitus: Sliding scale insulin while inpatient. ? Rheumatoid arthritis: Continue home leflunomide. ? Hyperlipidemia: Continue home statin. DVT prophylaxis: Heparin subcu CODE STATUS: DNR CCA, DNI Expected disposition: SNF, TBD Total clinical time spent by myself addressing the patient's medical issues, reviewing all the data, and collaborating with patient's care team: 35 minutes. Charges/Coding Visit Charges Inpatient E&M: 46468 Subs Hosp L2
--- NOTE | 2023-05-26 14:33 | CPS ---
patient sleeping at this time. will attempt again
--- NOTE | 2023-05-26 15:10 | CASEMGMT ---
GERRY spoke with patient's brother Ed and sister in law Alysa. They expressed interest in [facility]CU as patient's primary care doctor is Dr Cochran. SW let them know Dr Cochran was hoping she would come to TCU and TCU can accept. GERRY explained that patient will stay at [facility] until insurance approves patient. SW explained this will likely be Monday. They thanked GERRY. GERRY let Maranda know to go ahead and start the pre-cert for patient. Plan: [facility] pending insurance approval. Joanne TERESA
[2023-05-26 15:25] VITALS: BP 98/56; PULSE 94; RESP 18; TEMP 36.6; O2SAT 99
--- NOTE | 2023-05-26 15:51 | CASEMGMT ---
Patient has a Healthcare Power of Briar Shop Supervisor and a Healthcare Livin Will. Patient is aware documents are not on file and to bring in copies. Joanne Anderson MSW [employer]OL HAT FORMING MACHINE TENDER
[2023-05-26] MEDS: traMADol 50 MG Tablet PO (16:09)
--- NOTE | 2023-05-26 16:09 | CHAPLAIN ---
Type of Pastoral Visit _x__ Initial Visit ___ Follow-up Visit ___ On-call Visit ___ General Patient Visit ___ Spiritual Assessment ___ Family Conference ___ Bereavement ___ Rapid Response ___ Code Blue ___ Other (describe below) Pastoral Care Referral From _x__ Patient ___ Family ___ Nurse ___ Physician ___ Photo Booth Operator ___ Back Closer ___ Other (describe below) Sacrament/Intervention _x__ Active listening ___ Anointing ___ Evangelical ___ Bereavement ___ Communion _x__ Samantha exploration ___ _x__ Life review _x__ Prayer ___ Reconciliation ___ Sacrament of Sick _x__ Supportive presence ___ Wedding ___ Other (describe below) Pastoral Comments patient was napping in the chair but awoke easily to her name; pt is welcoming and tells of the weakness of body; pt focus is on the concern of moving from her house of 60 years; pt does not want to go to an F; pt speaks of past involvement in a latter day but has not been able to continue that in recent years; pt identifies her support as coming from samantha in God and from a brother and his family that live very close to her; pt welcomes presence and prayer; family members came into the room at the conclusion of this visit
[2023-05-26] MEDS: Ensure Plus High Protein 120 ML LIQUID PO ×2 (17:47→20:29)
[2023-05-26] MEDS: Baclofen 10 MG Tablet PO (20:26)
[2023-05-26 22:00] VITALS: BP 142/74; PULSE 86; RESP 16; TEMP 36.6; O2SAT 100
[2023-05-27 05:26] VITALS: BMI 14.6
[2023-05-27 05:49] VITALS: BP 140/70; PULSE 84; RESP 16; TEMP 36.6; O2SAT 98
[2023-05-27 08:47] VITALS: BP 138/76; PULSE 80; RESP 16; TEMP 36.8; O2SAT 100
[2023-05-27] MEDS: Cholecalciferol (VIT D3) 25 MCG TABLET (1,000 UNITS) 50 MCG PO (08:52)
[2023-05-27] MEDS: SimETHICONE 80 MG Chewable Tablet PO ×4 (08:52→20:40)
[2023-05-27] MEDS: Ensure Plus High Protein 120 ML LIQUID PO ×4 (08:52→20:54)
[2023-05-27] MEDS: BRIMONIDINE 0.2% 5ML BOTTLE 1 DRP EACH EYE ×2 (08:53→20:42)
[2023-05-27] MEDS: Menthol/Lanolin/Calamine/Znox 113 GM Tube 1 APPLIC TOPICAL ×2 (08:53→20:38)
[2023-05-27] MEDS: Timolol 0.5% 5ML OPTH.BTL 1 DRP EACH EYE ×2 (08:53→20:41)
[2023-05-27] MEDS: Lidocaine 5% Patch 1 PATCH TOPICAL (08:54)
[2023-05-27] MEDS: Heparin Injection (Vial) 5,000 UNIT/ML VIAL 5000 UNIT SC ×2 (08:54→20:39)
[2023-05-27] MEDS: Pantoprazole Sodium 40 MG in 0.9% Normal Saline (100mL MB+) 100 ML 330 MG IV ×2 (08:55→21:00)
[2023-05-27] MEDS: 0.9% Saline Lock 10 ML Syringe IV (08:55)
[2023-05-27 08:58] VITALS: O2SAT 100
--- NOTE | 2023-05-27 09:27 | NURSING ---
0927 Report called to Med Surg 3 Nurse. [facility]
[2023-05-27 10:35] VITALS: BP 103/54; PULSE 75; RESP 16; TEMP 36.9; O2SAT 94
--- NOTE | 2023-05-27 12:51 | PCM.PN.HOSP ---
Reason for Visit Reason for Visit: Diagnoses Adult failure to thrive (05/25/23) Subjective Subjective Patient seen at bedside this morning. Laying comfortably in bed, conversing normally, no acute distress. Patient states this morning that she feels somewhat cold, has asked for several blankets to keep her warm. Denies any subjective fevers. Patient states she has had 2 soft bowel movements since yesterday. Denies any abdominal pain or discomfort. States she was able to work somewhat with therapy yesterday. Otherwise denies any acute concerns morning. Objective Data Objective Data Vital Signs: Vital Signs Temp Pulse Resp BP Pulse Ox O2 Del Method 98.5 F 75 16 103/54 L 94 Room Air 05/27/23 10:35 05/27/23 10:35 05/27/23 10:35 05/27/23 10:35 05/27/23 10:35 05/27/23 10:35 Oxygen Delivery Method Room Air Weight: 38.5 kg Body Mass Index (BMI) 14.6 Intake & Output: Intake and Output for Last 24 Hours 05/25/23 05/26/23 05/27/23 23:59 23:59 23:59 Intake Total 610 / 610 2230 / 2230 110 / 110 Output Total 100 / 100 950 / 950 250 / 250 Balance 510 / 510 1280 / 1280 -140 / -140 Medical Nutrition Assessment Dietitian: Malnutrition Criteria Met Start: 05/26/23 15:12 Freq: Status: Active Protocol: Document 05/26/23 15:12 AG (Rec: 05/26/23 15:12 [id number]) Nutrition Malnutrition Evidence of Malnutrition Exists Yes Malnutrition (severe): Chronic Evidenced By Suboptimal Energy Intake ( Severe),Weight Loss (Severe) Clinical Problem Chronic Disease or Condition Related Malnutrition Etiology severe, chronic malnutrition related to inadequate energy intake Signs/Symptoms as evidenced by severe muscle wasting/fat loss evident per physical exam in orbital, clavicle, acromion, and temporal areas, estimated PO intake meeting <75% of estimated energy needs > 3 months, BMI 14.6, unintentional 4% wt loss Status Active Problem Recommendation Dietitian Recommendations/Changes regular diet; will adjust ONS to ensure plus high protein 120mL 4x/day w/ medpass given evidence of malnutrition; consider CALL CENTER SUPPORT REPRESENTATIVE eval if issues w/ chewing/swallowing Lab / Micro Data 05/26/23 07:50 05/26/23 07:50 Micro: Microbiology 05/25/23 21:10 Mucosa - Nasopharyngeal Coronavirus COVID-19 PCR - Final 05/25/23 21:10 Mucosa - Nasopharyngeal Respiratory Panel (PCR) - Final 05/25/23 15:37 Nasal Secretion SARS-CoV-2 & FLU Antigen (Rapid) - Final SARS-CoV-2 (COVID 19) Influenzae B Physical Exam Const alert and no apparent distress Constitutional Narrative: Pleasant elderly female, very thin and frail appearing, laying comfortably in bed, conversing normally, no acute distress. General Appearance: cooperative and comfortable HEENT normocephalic, head/scalp atraumatic, hearing grossly normal bilaterally, nasal mucous membranes and turbinates normal and moist oral mucous membranes Eyes PERRL, EOMs intact bilaterally and conjunctivae normal Neck full ROM, no lymphadenopathy and supple Lymph Lymphatic: no lymphadenopathy noted Chest inspection of chest normal Resp normal respiratory effort, normal air movement, no use of accessory muscles and clear to auscultation bilaterally Cardio regular rate, regular rhythm, no murmurs and peripheral pulses 2+ throughout GI normal to inspection, nondistended, normoactive bowel sounds, soft to palpation, non-tender and non-distended Back/Spine normal ROM Extremity normal to inspection, full ROM and no pedal edema Skin no rashes or lesions noted Neuro moves all extremities and no focal motor deficits Speech: speech normal Psych mental status grossly normal Assessment & Plan Assessment/Plan (1) Adult failure to thrive: PLAN: Plan Patient is an 83-year-old female who presented to [facility] ED on 05/25/2023 with failure to thrive at home. 1. Adult failure to thrive, progressive debility, severe protein calorie malnutrition Patient lives at home by herself. Family has noted worsening debility and weakness at home, with significant weight loss and inability to take care of herself. Patient brought in into the hospital by family per PCP recommendation for consideration of skilled placement. Severe malnutrition evidenced by significantly reduced BMI, obvious severe muscle and fat loss. ? PT/OT/case management following. Planning for SNF on discharge, hoping for [facility]CU pending insurance approval. Nutrition following. Ensure added to meals. Fall precautions in place. Monitor. 2. Chronic constipation, stable CT abdomen pelvis on admit did show concern for nonspecific ileus with fecal retention. However, patient reported soft bowel movement prior to admission and KUB read seems to be inaccurate due to patient's severe thinness. On home twice daily lactulose. Patient was initiated on GoLytely and enemas on admit without significant stool production. Had mild abdominal distention, no abdominal pain. Patient had 2 soft bowel movements on 05/26, feels like she is at her baseline. ? Continue patient's home twice daily lactulose. Monitor. 3. False positive COVID and influenza B tests ? COVID and influenza B initially positive on admission but were suspected to be false positives, as patient was asymptomatic. Repeat testing negative. Chronic medical conditions: ? 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 PT/OT/case management following as above. Patient notably does have upcoming evaluation with Dr. Price with pain management, with planned outpatient laminectomy at some point. ? Chronic iron deficiency anemia: Stable at baseline, monitor. ? Type 2 diabetes mellitus: Sliding scale insulin while inpatient. ? Rheumatoid arthritis: Continue home leflunomide. ? Hyperlipidemia: Continue home statin. DVT prophylaxis: Heparin subcu CODE STATUS: DNR CCA, DNI Expected disposition: SNF, 2 to 3 days Total clinical time spent by myself addressing the patient's medical issues, reviewing all the data, and collaborating with patient's care team: 35 minutes. Charges/Coding Visit Charges Inpatient E&M: 70143 Subs Hosp L2
[2023-05-27] MEDS: Acetaminophen 325 MG Tablet 650 MG PO (14:41)
[2023-05-27] MEDS: traMADol 50 MG Tablet PO ×2 (15:46→19:57)
[2023-05-27 17:00] VITALS: BP 127/65; PULSE 88; RESP 16; TEMP 37.2; O2SAT 94
[2023-05-27] MEDS: Baclofen 10 MG Tablet PO (19:58)
[2023-05-27 20:19] VITALS: BP 125/70; PULSE 87; RESP 16; TEMP 36.8; O2SAT 96
[2023-05-27] MEDS: Lactulose 20 GM/30 ML UDC PO (20:39)
[2023-05-27] MEDS: MELATONIN 3 MG TABLET PO (21:06)
[2023-05-28 02:46] VITALS: BP 106/60; PULSE 71; RESP 16; TEMP 36.3; O2SAT 97
[2023-05-28 06:00] VITALS: BMI 14.6
[2023-05-28] MEDS: traMADol 50 MG Tablet PO (06:37)
[2023-05-28 06:48] LABS: Bedside Glucose 134 mg/dL (74-106)
[2023-05-28 07:50] VITALS: O2SAT 98
[2023-05-28 08:45] VITALS: BP 125/76; PULSE 85; RESP 16; TEMP 37.2; O2SAT 98
[2023-05-28] MEDS: Acetaminophen 325 MG Tablet 650 MG PO (09:22)
[2023-05-28] MEDS: BRIMONIDINE 0.2% 5ML BOTTLE 1 DRP EACH EYE ×2 (09:23→20:38)
[2023-05-28] MEDS: Menthol/Lanolin/Calamine/Znox 113 GM Tube 1 APPLIC TOPICAL ×4 (09:23→20:35)
[2023-05-28] MEDS: SimETHICONE 80 MG Chewable Tablet PO ×4 (09:23→20:28)
[2023-05-28] MEDS: Lactulose 20 GM/30 ML UDC PO ×2 (09:25→20:29)
[2023-05-28] MEDS: Pantoprazole Sodium 40 MG in 0.9% Normal Saline (100mL MB+) 100 ML 330 MG IV ×2 (09:28→20:51)
[2023-05-28 10:00] VITALS: PULSE 85
[2023-05-28] MEDS: Timolol 0.5% 5ML OPTH.BTL 1 DRP EACH EYE ×2 (10:00→20:30)
--- NOTE | 2023-05-28 11:51 | PN.HOSP_ITS ---
Reason for Visit Reason for Visit: Diagnoses Adult failure to thrive (05/25/23) Subjective Subjective Patient seen at bedside this morning. Patient appeared mildly uncomfortable due to her lower back pain. States the tramadol and lidocaine patches have been somewhat helpful but she continues to have moderate pain consistently. She was able to get up and walk slowly with her walker yesterday with therapy. She otherwise denies any constipation, fevers or chills. Denies any other acute pain or discomfort. No other concerns this morning. Objective Data Objective Data Vital Signs: Vital Signs Temp Pulse Resp BP Pulse Ox O2 Del Method 97.3 F L 71 16 106/60 98 Room Air 05/28/23 02:46 05/28/23 02:46 05/28/23 02:46 05/28/23 02:46 05/28/23 07:50 05/28/23 07:50 Oxygen Delivery Method Room Air Weight: 38.6 kg Body Mass Index (BMI) 14.6 Intake & Output: Intake and Output for Last 24 Hours 05/26/23 05/27/23 05/28/23 23:59 23:59 23:59 Intake Total 2230 / 2230 220 / 520 610 / 610 Output Total 950 / 950 750 / 750 300 / 300 Balance 1280 / 1280 -530 / -230 310 / 310 Medical Nutrition Assessment Dietitian: Malnutrition Criteria Met Start: 05/26/23 15:12 Freq: Status: Active Protocol: Document 05/26/23 15:12 (Rec: 05/26/23 15:12 [id number]) Nutrition Malnutrition Evidence of Malnutrition Exists Yes Malnutrition (severe): Chronic Evidenced By Suboptimal Energy Intake ( Severe),Weight Loss (Severe) Clinical Problem Chronic Disease or Condition Related Malnutrition Etiology severe, chronic malnutrition related to inadequate energy intake Signs/Symptoms as evidenced by severe muscle wasting/fat loss evident per physical exam in orbital, clavicle, acromion, and temporal areas, estimated PO intake meeting <75% of estimated energy needs > 3 months, BMI 14.6, unintentional 4% wt loss Status Active Problem Recommendation Dietitian Recommendations/Changes regular diet; will adjust ONS to ensure plus high protein 120mL 4x/day w/ medpass given evidence of malnutrition; consider STORAGE BATTERY CHARGER eval if issues w/ chewing/swallowing Lab / Micro Data 05/26/23 07:50 12/15/23 07:50 Labs: Laboratory Results - last 24 hr 05/28/23 06:18: POC Glucose 134 H Micro: Microbiology 05/25/23 21:10 Mucosa - Nasopharyngeal Coronavirus COVID-19 PCR - Final 05/25/23 21:10 Mucosa - Nasopharyngeal Respiratory Panel (PCR) - Final 05/25/23 15:37 Nasal Secretion SARS-CoV-2 & FLU Antigen (Rapid) - Final SARS-CoV-2 (COVID 19) Influenzae B Physical Exam Const alert and no apparent distress Constitutional Narrative: Pleasant elderly female, very thin and frail appearing, conversing normally. Laying in bed, mild distress this morning due to low back pain. General Appearance: cooperative HEENT normocephalic, head/scalp atraumatic, hearing grossly normal bilaterally, nasal mucous membranes and turbinates normal and moist oral mucous membranes Eyes PERRL, EOMs intact bilaterally and conjunctivae normal Neck full ROM, no lymphadenopathy and supple Lymph Lymphatic: no lymphadenopathy noted Chest inspection of chest normal Resp normal respiratory effort, normal air movement, no use of accessory muscles and clear to auscultation bilaterally Cardio regular rate, regular rhythm, no murmurs and peripheral pulses 2+ throughout GI normal to inspection, nondistended, normoactive bowel sounds, soft to palpation, non-tender and non-distended Back/Spine normal to inspection Extremity normal to inspection, full ROM and no pedal edema Skin no rashes or lesions noted Neuro moves all extremities and no focal motor deficits Speech: speech normal Psych mental status grossly normal Assessment & Plan Assessment/Plan (1) Adult failure to thrive: PLAN: Plan Patient is an 83-year-old female who presented to [facility] ED on 05/25/2023 with failure to thrive at home. 1. Adult failure to thrive, progressive debility, severe protein calorie malnutrition Patient lives at home by herself. Family has noted worsening debility and weakness at home, with significant weight loss and inability to take care of herself. Patient brought in into the hospital by family per PCP recommendation for consideration of skilled placement. Severe malnutrition evidenced by significantly reduced BMI, obvious severe muscle and fat loss. ? PT/OT/case management following. Planning for SNF on discharge, hoping for [facility] pending insurance approval. Nutrition following. Ensure added to meals. Fall precautions in place. Monitor. 2. Chronic constipation, stable CT abdomen pelvis on admit did show concern for nonspecific ileus with fecal retention. However, patient reported soft bowel movement prior to admission and KUB read seems to be inaccurate due to patient's severe thinness. On home twice daily lactulose. Patient was initiated on GoLytely and enemas on admit without significant stool production. Had mild abdominal distention, no abdominal pain. Patient had 2 soft bowel movements on 05/26, feels like she is at her baseline. ? Continue patient's home twice daily lactulose. Monitor. 3. False positive COVID and influenza B tests ? COVID and influenza B initially positive on admission but were suspected to be false positives, as patient was asymptomatic. Repeat testing negative. 4. Chronic back pain with lumbar spinal stenosis Lumbar spine CT on admit incidentally showed significant chronic L-spine change s, no acute findings. ? PT/OT/case management following as above. Continue scheduled Tylenol, lidoc myah patches, tramadol as needed. Added heating pack and gabapentin 100 mg 3 times daily on 05/28. Patient notably does have upcoming evaluation with Dr. Price with pain management, with planned outpatient laminectomy at some point. Chronic medical conditions: ? Chronic iron deficiency anemia: Stable at baseline, monitor. ? Type 2 diabetes mellitus: Sliding scale insulin while inpatient. ? Rheumatoid arthritis: Continue home leflunomide. ? Hyperlipidemia: Continue home statin. DVT prophylaxis: Heparin subcu CODE STATUS: DNR CCA, DNI Expected disposition: SNF, 1 to 2 days Total clinical time spent by myself addressing the patient's medical issues, reviewing all the data, and collaborating with patient's care team: 35 minutes. Charges/Coding Visit Charges Inpatient E&M: 83729 Subs Hosp L2
[2023-05-28] MEDS: Gabapentin 100 MG Capsule PO ×2 (13:55→18:12)
[2023-05-28] MEDS: Acetaminophen 500 MG Tablet 1000 MG PO ×2 (13:55→20:31)
[2023-05-28] MEDS: Lidocaine 5% Patch 1 PATCH TOPICAL (13:57)
[2023-05-28] MEDS: Heparin Injection (Vial) 5,000 UNIT/ML VIAL 5000 UNIT SC ×2 (13:58→20:29)
[2023-05-28] MEDS: Cholecalciferol (VIT D3) 25 MCG TABLET (1,000 UNITS) 50 MCG PO (13:58)
[2023-05-28] MEDS: Ensure Plus High Protein 120 ML LIQUID PO ×3 (14:07→20:28)
[2023-05-28 15:45] VITALS: BP 109/45; PULSE 74; RESP 16; TEMP 36.6; O2SAT 97
[2023-05-28 20:20] VITALS: BP 98/44; PULSE 75; RESP 16; TEMP 36.4; O2SAT 97
[2023-05-28] MEDS: Baclofen 10 MG Tablet PO (20:31)
[2023-05-28] MEDS: MELATONIN 3 MG TABLET PO (20:56)
[2023-05-29 02:09] VITALS: BP 108/65; PULSE 82; RESP 16; TEMP 36.6; O2SAT 95
[2023-05-29] MEDS: traMADol 50 MG Tablet PO (02:15)
[2023-05-29] MEDS: Acetaminophen 500 MG Tablet 1000 MG PO ×3 (05:33→21:18)
[2023-05-29 06:00] VITALS: BMI 14.6
[2023-05-29 08:10] VITALS: BP 108/76; PULSE 74; RESP 18; TEMP 36.8; O2SAT 95
[2023-05-29] MEDS: SimETHICONE 80 MG Chewable Tablet PO ×4 (08:21→21:24)
[2023-05-29] MEDS: Gabapentin 100 MG Capsule PO ×3 (08:21→17:41)
[2023-05-29] MEDS: Lidocaine 5% Patch 1 PATCH TOPICAL (08:21)
[2023-05-29] MEDS: BRIMONIDINE 0.2% 5ML BOTTLE 1 DRP EACH EYE ×2 (08:22→21:17)
[2023-05-29] MEDS: Lactulose 20 GM/30 ML UDC PO ×2 (08:22→21:18)
[2023-05-29] MEDS: Heparin Injection (Vial) 5,000 UNIT/ML VIAL 5000 UNIT SC ×2 (08:22→21:18)
[2023-05-29] MEDS: Ensure Plus High Protein 120 ML LIQUID PO ×4 (08:22→21:24)
[2023-05-29] MEDS: Cholecalciferol (VIT D3) 25 MCG TABLET (1,000 UNITS) 50 MCG PO (08:23)
[2023-05-29] MEDS: Timolol 0.5% 5ML OPTH.BTL 1 DRP EACH EYE ×2 (08:23→21:24)
[2023-05-29 08:25] VITALS: O2SAT 96
--- NOTE | 2023-05-29 09:10 | PN.HOSP_ITS ---
Subjective Subjective Doing well, no issues overnight. Sitting in the chair Objective Data Objective Data Vital Signs: Vital Signs Temp Pulse Resp BP Pulse Ox O2 Del Method 98 F 82 16 108/65 96 Room Air 05/29/23 02:09 05/29/23 02:09 05/29/23 02:09 05/29/23 02:09 05/29/23 08:25 05/29/23 08:25 Oxygen Delivery Method Room Air Weight: 85 lb 1.575 oz Body Mass Index (BMI) 14.6 Intake & Output: Intake and Output for Last 24 Hours 05/28/23 05/29/23 05/30/23 03:59 03:59 03:59 Intake Total 520 / 520 1570 / 1570 50 / 50 Output Total 750 / 750 1250 / 1250 150 / 150 Balance -230 / -230 320 / 320 -100 / -100 Medical Nutrition Assessment Dietitian: Malnutrition Criteria Met Start: 05/26/23 15:12 Freq: Status: Active Protocol: Document 05/26/23 15:12 AG (Rec: 05/26/23 15:12 [id number]) Nutrition Malnutrition Evidence of Malnutrition Exists Yes Malnutrition (severe): Chronic Evidenced By Suboptimal Energy Intake ( Severe),Weight Loss (Severe) Clinical Problem Chronic Disease or Condition Related Malnutrition Etiology severe, chronic malnutrition related to inadequate energy intake Signs/Symptoms as evidenced by severe muscle wasting/fat loss evident per physical exam in orbital, clavicle, acromion, and temporal areas, estimated PO intake meeting <75% of estimated energy needs > 3 months, BMI 14.6, unintentional 4% wt loss Status Active Problem Recommendation Dietitian Recommendations/Changes regular diet; will adjust ONS to ensure plus high protein 120mL 4x/day w/ medpass given evidence of malnutrition; consider TELEPHONE CLERK TELEGRAPH OFFICE eval if issues w/ chewing/swallowing Lab / Micro Data 05/26/23 07:50 05/26/23 07:50 Micro: Microbiology 05/25/23 21:10 Mucosa - Nasopharyngeal Coronavirus COVID-19 PCR - Final 05/25/23 21:10 Mucosa - Nasopharyngeal Respiratory Panel (PCR) - Final 05/25/23 15:37 Nasal Secretion SARS-CoV-2 & FLU Antigen (Rapid) - Final SARS-CoV-2 (COVID 19) Influenzae B Physical Exam Narrative General: Alert, Oriented x3, Cooperative, No apparent distress HEENT: Atraumatic, PERRLA, EOMI, Normocephalic Oral: Moist Mucosa Neck: Supple, No JVD Lungs: Diminished, Normal air movement, No rhonchi, No wheeze, No rales Cardiovascular: Regular rate, Regular Rhythm, Normal S1, Normal S2, No murmurs Abdomen: Soft, Non Tender, Non-Distended, No Hepato-splenomegaly Extremities: No edema, Capillary Refill Less than 3 Seconds Skin: No rashes, No breakdown Musculoskeletal: No Tenderness to Palpation of Joints or Extremities Neurological: Cranial nerves II-XII grossly intact, Motor Exam 5/5 strength throughout, Sensory exam intact to light touch and pain Psych/Mental Status: Normal Affect, Appropriate Assessment & Plan Assessment/Plan (1) Adult failure to thrive: PLAN: Plan Patient is an 83-year-old female who presented to [facility] ED on 05/25/2023 with failure to thrive at home. 1. Adult failure to thrive, progressive debility, severe protein calorie malnutrition Patient lives at home by herself. Family has noted worsening debility and weakness at home, with significant weight loss and inability to take care of herself. Patient brought in into the hospital by family per PCP recommendation for consideration of skilled placement. Severe malnutrition evidenced by significantly reduced BMI, obvious severe muscle and fat loss. ? PT/OT/case management following. Planning for SNF on discharge, hoping for [facility] TCU pending insurance approval. Nutrition following. Ensure added to meals. Fall precautions in place. Monitor. 2. Chronic constipation, stable CT abdomen pelvis on admit did show concern for nonspecific ileus with fecal retention. However, patient reported soft bowel movement prior to admission and KUB read seems to be inaccurate due to patient's severe thinness. On home twice daily lactulose. Patient was initiated on GoLytely and enemas on admit without significant stool production. Had mild abdominal distention, no abdominal pain. Patient had 2 soft bowel movements on 05/26, feels like she is at her baseline. ? Continue patient's home twice daily lactulose. Monitor. 3. False positive COVID and influenza B tests ? COVID and influenza B initially positive on admission but were suspected to be false positives, as patient was asymptomatic. Repeat testing negative. 4. Chronic back pain with lumbar spinal stenosis Lumbar spine CT on admit incidentally showed significant chronic L-spine changes, no acute findings. ? PT/OT/case management following as above. Continue scheduled Tylenol, lidocaine patches, tramadol as needed. Added heating pack and gabapentin 100 mg 3 times daily on 05/28. Patient notably does have upcoming evaluation with Dr. Price with pain management, with planned outpatient laminectomy at some point. 05/29/2023: Has had a good response to the gabapentin Chronic medical conditions: ? Chronic iron deficiency anemia: Stable at baseline, monitor. ? Type 2 diabetes mellitus: Sliding scale insulin while inpatient. ? Rheumatoid arthritis: Continue home leflunomide. ? Hyperlipidemia: Continue home statin. DVT: Heparin Charges/Coding Visit Charges Inpatient E&M: 97622 Subs Hosp L2
[2023-05-29 10:00] VITALS: RESP 18
[2023-05-29] MEDS: Pantoprazole Sodium 40 MG in 0.9% Normal Saline (100mL MB+) 100 ML 330 MG IV ×2 (12:17→21:23)
[2023-05-29] MEDS: Menthol/Lanolin/Calamine/Znox 113 GM Tube 1 APPLIC TOPICAL ×4 (12:17→21:16)
--- NOTE | 2023-05-29 14:28 | CASEMGMT ---
Social Work Spoke with Maranda from [facility]. Precert has been submitted [facility] go to [facility]. Maranda will update when authorization is back. PLAN: [facility] when insurance authorization is received. -ROSY Hanks
[2023-05-29 17:00] VITALS: BP 112/66; PULSE 70; RESP 18; TEMP 37; O2SAT 95
[2023-05-29 20:57] VITALS: BP 114/58; PULSE 90; RESP 16; TEMP 36.6; O2SAT 95
[2023-05-29] MEDS: Baclofen 10 MG Tablet PO (21:19)
[2023-05-30 03:01] VITALS: BP 99/61; PULSE 81; RESP 16; TEMP 36.7; O2SAT 94
[2023-05-30 04:46] VITALS: BMI 14.5
[2023-05-30] MEDS: Acetaminophen 500 MG Tablet 1000 MG PO ×3 (05:24→21:19)
[2023-05-30 06:44] LABS: Absolute Lymphocyte Count 1.39 X10^3/uL (0.83-4.51); Absolute Neutrophil Count 3.2 X10^3/uL (2.0-7.7); Basophil# 0.03 X10^3/uL; Basophil% 0.5 % (0-1); Eosinophils% 5.4 % (0-5); Hematocrit 35.6 % (37-47); Hemoglobin 10.9 g/dL (12.0-15.0); Lymphocyte # 1.39 X10^3/ul (0.83-4.51); Lymphocyte % 25.2 % (19-41); Mean Corp Hgb Conc 30.6 g/dL (32-36); Mean Corpuscular Hgb 31.3 pg (27.0-32.0); Mean Corpuscular Volume 102.3 fL (81-99); Mean Platelet Vol. 8.7 fl (6.2-12.0); Monocyte# 0.55 X10^3/uL; NRBC Flagged by Analyzer 0 % (0-5); Neutrophil # 3.23 X10^3/uL (2.7-7.7); Neutrophil % 58.7 % (47-70); Platelet Count 357 K/mm3 (150-450); RBC Distribution Width CV 14.1 % (11.6-14.6); RBC Distribution Width SD 52.3 fl (35.1-43.9); Red Blood Count 3.48 M/mm3 (4.2-5.4); White Blood Count 5.5 K/mm3 (4.4-11.0)
[2023-05-30 06:56] LABS: Anion Gap 3 (5-15); BUN 10 mg/dL (7-18); BUN/Creat Ratio 16.7 RATIO (10-20); Calcium,Total 8.8 mg/dL (8.5-10.1); Chloride 106 mmol/L (98-107); EST Glomerular Filtration Rate 101 mL/min (>60); Est Glom Filt Rate - Afr Amer 123 mL/min (>60); Estimated Creatinine Clearance 25.97 ml/min; Glucose 187 mg/dL (74-106); Potassium 3.5 mmol/L (3.5-5.1); Sodium Level 139 mmol/L (136-145)
[2023-05-30] MEDS: Cholecalciferol (VIT D3) 25 MCG TABLET (1,000 UNITS) 50 MCG PO (07:52)
[2023-05-30] MEDS: Heparin Injection (Vial) 5,000 UNIT/ML VIAL 5000 UNIT SC ×2 (07:52→21:17)
[2023-05-30] MEDS: Gabapentin 100 MG Capsule PO ×3 (07:52→17:04)
[2023-05-30] MEDS: traMADol 50 MG Tablet PO (07:52)
[2023-05-30] MEDS: BRIMONIDINE 0.2% 5ML BOTTLE 1 DRP EACH EYE ×2 (07:53→21:17)
[2023-05-30] MEDS: Timolol 0.5% 5ML OPTH.BTL 1 DRP EACH EYE ×2 (07:53→21:19)
[2023-05-30] MEDS: Ensure Plus High Protein 120 ML LIQUID PO ×4 (07:53→21:26)
[2023-05-30] MEDS: Lactulose 20 GM/30 ML UDC PO (07:53)
[2023-05-30] MEDS: Menthol/Lanolin/Calamine/Znox 113 GM Tube 1 APPLIC TOPICAL ×4 (07:54→21:17)
[2023-05-30] MEDS: Lidocaine 5% Patch 1 PATCH TOPICAL (07:54)
[2023-05-30] MEDS: SimETHICONE 80 MG Chewable Tablet PO ×4 (08:09→21:26)
[2023-05-30 08:13] VITALS: BP 138/76; PULSE 82; RESP 18; TEMP 36.6; O2SAT 95
--- NOTE | 2023-05-30 09:52 | PN.HOSP_ITS ---
Subjective Subjective Doing well, no issues overnight. Pain is a little bit better controlled Objective Data Objective Data Vital Signs: Vital Signs Temp Pulse Resp BP Pulse Ox O2 Del Method 98 F 82 18 138/76 H 95 Room Air 05/30/23 08:13 05/30/23 08:13 05/30/23 08:13 05/30/23 08:13 05/30/23 08:13 05/30/23 08:13 Oxygen Delivery Method Room Air Weight: 85 lb 1.575 oz Body Mass Index (BMI) 14.5 Intake & Output: Intake and Output for Last 24 Hours 05/29/23 05/30/23 05/31/23 03:59 03:59 03:59 Intake Total 1570 / 1570 1820 / 1820 100 / 100 Output Total 1250 / 1250 650 / 650 250 / 250 Balance 320 / 320 1170 / 1170 -150 / -150 Medical Nutrition Assessment Dietitian: Malnutrition Criteria Met Start: 05/26/23 15:12 Freq: Status: Active Protocol: Document 05/26/23 15:12 AG (Rec: 05/26/23 15:12 AG [id number]) Nutrition Malnutrition Evidence of Malnutrition Exists Yes Malnutrition (severe): Chronic Evidenced By Suboptimal Energy Intake ( Severe),Weight Loss (Severe) Clinical Problem Chronic Disease or Condition Related Malnutrition Etiology severe, chronic malnutrition related to inadequate energy intake Signs/Symptoms as evidenced by severe muscle wasting/fat loss evident per physical exam in orbital, clavicle, acromion, and temporal areas, estimated PO intake meeting <75% of estimated energy needs > 3 months, BMI 14.6, unintentional 4% wt loss Status Active Problem Recommendation Dietitian Recommendations/Changes regular diet; will adjust ONS to ensure plus high protein 120mL 4x/day w/ medpass given evidence of malnutrition; consider FORENSIC ANTHROPOLOGIST eval if issues w/ chewing/swallowing Lab / Micro Data 05/30/23 05:16 05/30/23 05:16 Labs: Laboratory Results - last 24 hr 05/30/23 05:16: WBC 5.5, RBC 3.48 L, Hgb 10.9 L, Hct 35.6 L, MCV 102.3 H, MCH 31.3, MCHC 30.6 L, RDW Std Deviation 52.3 H, RDW Coeff of Ed 14.1, Plt Count 357, MPV 8.7, Immature Gran % (Auto) 0.200, Neut % (Auto) 58.7, Lymph % (Auto) 25.2, [place] % (Auto) 10.0, Eos % (Auto) 5.4 H, Baso % (Auto) 0.5, Absolute Neuts (auto) 3.2, Absolute Lymphs (auto) 1.39, Nucleated RBC % 0, Sodium 139, Potassium 3.5, Chloride 106, Carbon Dioxide 30.0, Anion Gap 3 L, BUN 10, Creatinine 0.60, Estim Creat Clear Calc 25.97, Est GFR (MDRD) Af Amer 123, Est GFR (MDRD) Non-Af 101, BUN/Creatinine Ratio 16.7, Glucose 187 H, Calcium 8.8 Micro: Microbiology 05/25/23 21:10 Mucosa - Nasopharyngeal Coronavirus COVID-19 PCR - Final 05/25/23 21:10 Mucosa - Nasopharyngeal Respiratory Panel (PCR) - Final 05/25/23 15:37 Nasal Secretion SARS-CoV-2 & FLU Antigen (Rapid) - Final SARS-CoV-2 (COVID 19) Influenzae B Physical Exam Narrative General: Alert, Oriented x3, Cooperative, No apparent distress HEENT: Atraumatic, PERRLA, EOMI, Normocephalic Oral: Moist Mucosa Neck: Supple, No JVD Lungs: Diminished, Normal air movement, No rhonchi, No wheeze, No rales Cardiovascular: Regular rate, Regular Rhythm, Normal S1, Normal S2, No murmurs Abdomen: Soft, Non Tender, Non-Distended, No Hepato-splenomegaly Extremities: No edema, Capillary Refill Less than 3 Seconds Skin: No rashes, No breakdown Musculoskeletal: No Tenderness to Palpation of Joints or Extremities Neurological: Cranial nerves II-XII grossly intact, Motor Exam 5/5 strength throughout, Sensory exam intact to light touch and pain Psych/Mental Status: Normal Affect, Appropriate Assessment & Plan Assessment/Plan (1) Adult failure to thrive: PLAN: Plan 1. Adult failure to thrive, progressive debility, severe protein calorie malnutrition Patient lives at home by herself. Family has noted worsening debility and weakness at home, with significant weight loss and inability to take care of herself. Patient brought in into the hospital by family per PCP recommendation for consideration of skilled placement. Severe malnutrition evidenced by significantly reduced BMI, obvious severe muscle and fat loss. ? PT/OT/case management following. Planning for SNF on discharge, hoping for [facility] TCU pending insurance approval. Nutrition following. Ensure added to meals. Fall precautions in place. Monitor. 05/30/2023: Awaiting pre-CERT 2. Chronic constipation, stable CT abdomen pelvis on admit did show concern for nonspecific ileus with fecal retention. However, patient reported soft bowel movement prior to admission and KUB read seems to be inaccurate due to patient's severe thinness. On home twice daily lactulose. Patient was initiated on GoLytely and enemas on admit without significant stool production. Had mild abdominal distention, no abdominal pain. Patient had 2 soft bowel movements on 05/26, feels like she is at her baseline. ? Continue patient's home twice daily lactulose. Monitor. 3. False positive COVID and influenza B tests ? COVID and influenza B initially positive on admission but were suspected to be false positives, as patient was asymptomatic. Repeat testing negative. 4. Chronic back pain with lumbar spinal stenosis Lumbar spine CT on admit incidentally showed significant chronic L-spine changes, no acute findings. ? PT/OT/case management following as above. Continue scheduled Tylenol, lidocaine patches, tramadol as needed. Added heating pack and gabapentin 100 mg 3 times daily on 05/28. Patient notably does have upcoming evaluation with Dr. Price with pain management, with planned outpatient laminectomy at some point. 05/29/2023: Has had a good response to the gabapentin Chronic medical conditions: ? Chronic iron deficiency anemia: Stable at baseline, monitor. ? Type 2 diabetes mellitus: Sliding scale insulin while inpatient. ? Rheumatoid arthritis: Continue home leflunomide. ? Hyperlipidemia: Continue home statin. DVT: Heparin Charges/Coding Visit Charges Inpatient E&M: 87508 Subs Hosp L2
[2023-05-30] MEDS: 0.9% Saline Lock 10 ML Syringe IV ×2 (10:03→21:14)
[2023-05-30] MEDS: Pantoprazole Sodium 40 MG in 0.9% Normal Saline (100mL MB+) 100 ML 330 MG IV ×2 (10:03→21:15)
[2023-05-30 14:46] VITALS: BP 105/51; PULSE 92; RESP 18; TEMP 36.6; O2SAT 97
[2023-05-30 21:07] VITALS: BP 120/58; PULSE 85; RESP 16; TEMP 36.7; O2SAT 97
[2023-05-30] MEDS: Baclofen 10 MG Tablet PO (21:18)
[2023-05-31] MEDS: traMADol 50 MG Tablet PO (02:23)
[2023-05-31 02:27] VITALS: BP 141/64; PULSE 75; RESP 16; TEMP 36.4; O2SAT 99
[2023-05-31 05:11] VITALS: BMI 14.3
[2023-05-31 05:42] LABS: Absolute Lymphocyte Count 1.13 X10^3/uL (0.83-4.51); Absolute Neutrophil Count 6.7 X10^3/uL (2.0-7.7); Basophil# 0.04 X10^3/uL; Basophil% 0.4 % (0-1); Eosinophil# 0.39 X10^3/uL; Eosinophils% 4.4 % (0-5); Hematocrit 35.2 % (37-47); Hemoglobin 11.1 g/dL (12.0-15.0); Lymphocyte # 1.13 X10^3/ul (0.83-4.51); Lymphocyte % 12.7 % (19-41); Mean Corp Hgb Conc 31.5 g/dL (32-36); Mean Corpuscular Hgb 32.2 pg (27.0-32.0); Mean Platelet Vol. 8.6 fl (6.2-12.0); Monocyte# 0.64 X10^3/uL; Monocyte% 7.2 % (0-10); NRBC Flagged by Analyzer 0 % (0-5); Neutrophil # 6.67 X10^3/uL (2.7-7.7); Neutrophil % 74.7 % (47-70); Platelet Count 331 K/mm3 (150-450); RBC Distribution Width CV 14.2 % (11.6-14.6); RBC Distribution Width SD 52.7 fl (35.1-43.9); Red Blood Count 3.45 M/mm3 (4.2-5.4); White Blood Count 8.9 K/mm3 (4.4-11.0)
[2023-05-31] MEDS: Acetaminophen 500 MG Tablet 1000 MG PO ×2 (05:47→12:50)
[2023-05-31 06:35] LABS: Anion Gap 5 (5-15); BUN 14 mg/dL (7-18); BUN/Creat Ratio 25.6 RATIO (10-20); Calcium,Total 8.3 mg/dL (8.5-10.1); Chloride 104 mmol/L (98-107); Creatinine, Serum 0.55 mg/dL (0.55-1.02); EST Glomerular Filtration Rate 113 mL/min (>60); Est Glom Filt Rate - Afr Amer 137 mL/min (>60); Estimated Creatinine Clearance 25.71 ml/min; Glucose 250 mg/dL (74-106); Sodium Level 140 mmol/L (136-145)
[2023-05-31] MEDS: Gabapentin 100 MG Capsule PO ×2 (09:00→12:50)
[2023-05-31] MEDS: Lidocaine 5% Patch 1 PATCH TOPICAL (09:00)
[2023-05-31] MEDS: SimETHICONE 80 MG Chewable Tablet PO ×2 (09:00→12:50)
[2023-05-31] MEDS: Cholecalciferol (VIT D3) 25 MCG TABLET (1,000 UNITS) 50 MCG PO (09:00)
[2023-05-31] MEDS: Heparin Injection (Vial) 5,000 UNIT/ML VIAL 5000 UNIT SC (09:00)
[2023-05-31] MEDS: BRIMONIDINE 0.2% 5ML BOTTLE 1 DRP EACH EYE (09:01)
[2023-05-31] MEDS: Timolol 0.5% 5ML OPTH.BTL 1 DRP EACH EYE (09:01)
[2023-05-31] MEDS: Lactulose 20 GM/30 ML UDC PO (09:01)
[2023-05-31] MEDS: Ensure Plus High Protein 120 ML LIQUID PO ×2 (09:01→12:51)
[2023-05-31] MEDS: Pantoprazole Sodium 40 MG in 0.9% Normal Saline (100mL MB+) 100 ML 330 MG IV (09:01)
[2023-05-31] MEDS: Menthol/Lanolin/Calamine/Znox 113 GM Tube 1 APPLIC TOPICAL ×2 (09:03→12:52)
[2023-05-31 09:25] VITALS: BP 135/73; PULSE 72; RESP 18; TEMP 36.3; O2SAT 97
--- NOTE | 2023-05-31 10:18 | CASEMGMT ---
Social Work SW received a message from [facility] that pt has been denied by insurance and Peer to Peer is offered. GERRY spoke with nishant who is agreeable to complete Peer to Peer. Phone call to [facility] line and spoke with Sharon. Dr. Miles with [facility] to contact Dr. Londono between 1030 and 1230 to complete Peer to Peer. Physician notified. ALYX Ghotra
--- NOTE | 2023-05-31 11:57 | PCM.TXEXTCAR ---
Diet Diet Order/Speech Therapy: 05/26/23 10:44 Diet: Regular - General Is pt able to select menu?: No Routine Orders/Code Status Routine Lab Work: CBC and BMP Code Status: DNRCC-A Wound(s) christopher buttock: Wound Type: Pressure Injury Bottom of right foot: Wound Type: callous Left elbow: Wound Type: Skin Tear Therapies Occupational Therapy: Eval and Treat Speech Therapy: Eval and Treat Problem/Diagnosis (1) Adult failure to thrive: Status: Acute Code(s): R62.7 - Adult failure to thrive Plan 1. Adult failure to thrive, progressive debility, severe protein calorie malnutrition Patient lives at home by herself. Family has noted worsening debility and weakness at home, with significant weight loss and inability to take care of herself. Patient brought in into the hospital by family per PCP recommendation for consideration of skilled placement. Severe malnutrition evidenced by significantly reduced BMI, obvious severe muscle and fat loss. ? PT/OT/case management following. Planning for SNF on discharge, hoping for [facility] T[facility] pending insurance approval. Nutrition following. Ensure added to meals. Fall precautions in place. Monitor. 05/30/2023: Awaiting pre-CERT 2. Chronic constipation, stable CT abdomen pelvis on admit did show concern for nonspecific ileus with fecal retention. However, patient reported soft bowel movement prior to admission and KUB read seems to be inaccurate due to patient's severe thinness. On home twice daily lactulose. Patient was initiated on GoLytely and enemas on admit without significant stool production. Had mild abdominal distention, no abdominal pain. Patient had 2 soft bowel movements on 05/26, feels like she is at her baseline. ? Continue patient's home twice daily lactulose. Monitor. 3. False positive COVID and influenza B tests ? COVID and influenza B initially positive on admission but were suspected to be false positives, as patient was asymptomatic. Repeat testing negative. 4. Chronic back pain with lumbar spinal stenosis Lumbar spine CT on admit incidentally showed significant chronic L-spine changes, no acute findings. ? PT/OT/case management following as above. Continue scheduled Tylenol, lidocaine patches, tramadol as needed. Added heating pack and gabapentin 100 mg 3 times daily on 05/28. Patient notably does have upcoming evaluation with Dr. Price with pain management, with planned outpatient laminectomy at some point. 05/29/2023: Has had a good response to the gabapentin Chronic medical conditions: ? Chronic iron deficiency anemia: Stable at baseline, monitor. ? Type 2 diabetes mellitus: Sliding scale insulin while inpatient. ? Rheumatoid arthritis: Continue home leflunomide. ? Hyperlipidemia: Continue home statin. DVT: Heparin Allergies/Procedures Done in Hospital Allergies alendronate sodium [From Fosamax] Allergy (Verified 05/25/23 14:57) Anaphylaxis Penicillins Allergy (Verified 05/25/23 14:57) Swelling Procedures: None Type of Care/Length of Stay Estimated LOS: Convalescent Care Less Than 30 days Type of Care Needed: Skilled Rehab Potential: Good Prognosis: Good Additional Orders/Day of Discharge Day of Discharge: 05/31/23 Dietary and Speech Recommendations Dietitian Recommendations/Changes: regular diet; will continue ensure plus high protein 120mL 4x/day w/ medpass given signs and symptoms of malnutrition; consider DIESEL POWERPLANT MECHANIC HELPER eval if issues w/ chewing/swallowing Discharge Plan Admission Admit Date/Time: 05/25/23 19:33 Attending Provider: Saturnino Londono Primary Care Provider: Victor M Co[facility] [employer] Providers: Saturnino Londono; Andres Gomez Discharge Orders/Prescriptions Prescriptions: New lidocaine 5 % Adhesive Patch,Medicated 1 patch topical DAILY Qty: 0 0RF Protocol: *Topical Application Instructions APPLICATION INSTRUCTIONS: place on area of back pain gabapentin 100 mg Capsule 100 mg PO TIDCM Qty: 0 0RF tramadol 50 mg Tablet 50 mg PO TID PRN PRN (Reason: Pain Score 6-10) Qty: 0 0RF Continued cholecalciferol (vitamin D3) [Vitamin D3] 1,000 UNIT tablet 2,000 unit PO DAILY baclofen 10 mg tablet 10 mg PO QHS lactulose 10 gram/15 mL solution 30 ml PO BID simethicone [Gas Relief (simethicone)] 80 mg tablet,chewable 80 mg PO BID Rx Instructions: TAKE 1 TABLET BY MOUTH DAILY AFTER MEALS AND AT BEDTIME Farxiga 10 mg tablet 10 mg PO DAILY brimonidine-timolol 0.2-0.5 % drops 1 drp ophthalmic (eye) 0700,1900 acetaminophen [Tylenol Extra Strength] 500 mg tablet 1,000 mg PO BID Referrals / Follow Up: Victor M Cochran Chi, MD [Primary Care Provider] - Disposition Disposition (needs filled in before D/C Order can be placed): Intermediate Facility
--- NOTE | 2023-05-31 14:00 | NURSING ---
Report called to Nasreen at TCU and she will be going to room 12. Pt family aware.
--- NOTE | 2023-05-31 14:16 | CASEMGMT ---
Social Work Denial was overturned by [facility]. Pt can admit to TCU today. Physician updated and pt to discharge today. Discharge orders faxed to TCU. SW met with pt and updated that TCU can accept and precert has been obtained. Pt agreeable with discharge to TCU today. With pt permission, phone call to pts brother Ed Root and updated on dc plan. Ed agreeable with dc to TCU. Disposition: TCU, skilled level of care ALYX Ghotra
--- NOTE | 2023-05-31 14:50 | PCM.DC.SUM ---
Providers Date of Admission: 05/25/23 Primary Care Physician: Dr. Victor M Cochran MD Reason For Visit: ADULT FTT Diagnosis Discharge Diagnosis (1) Adult failure to thrive: Status: Acute Code(s): R62.7 - Adult failure to thrive Medications at Discharge Home Medications cholecalciferol (vitamin D3) 25 mcg (1,000 unit) tablet (Vitamin D3) 2,000 unit PO DAILY SUPPLEMENT 07/25/14 acetaminophen 500 mg tablet (Tylenol Extra Strength) 1,000 mg PO BID BACK PAIN 05/25/23 baclofen 10 mg tablet 10 mg PO QHS MUSCLE SPASMS 05/25/23 brimonidine 0.2 %-timolol 0.5 % eye drops 1 drp ophthalmic (eye) 0700,1900 GLAUCOMA 05/25/23 dapagliflozin propanediol 10 mg tablet (Farxiga) 10 mg PO DAILY BLOOD SUGARS 05/25/23 lactulose 10 gram/15 mL oral solution 30 ml PO BID BOWELS 05/25/23 simethicone 80 mg chewable tablet (Gas Relief (simethicone)) 80 mg PO BID GAS RELIEF 05/25/23 gabapentin 100 mg capsule 100 mg PO TIDCM Nerve pain #0 caps 05/31/23 lidocaine 5 % topical patch 1 patch topical DAILY Pain #0 ea 05/31/23 tramadol 50 mg tablet 50 mg PO TID PRN PRN Pain Score 6-10 #0 tabs 05/31/23 Hospital Course Operations None Procedures None Summary of Care Provided Minutes Spent on Discharge: 36 Hospital Course: Per HPI: The patient is an 83 y/o F w/ PMHx: Rheumatoid arthritis, HLD, Diabetes mellitus type II, Chronic Fe Deficiency anemia who presents to the [facility] ED on 05/25/23 with history of generalized debility and weakness with inability to take care of herself at home with poor oral intake and weight loss associated possibly secondary to inability to get around well and make her self meals with ongoing back discomfort and some right flank discomfort as well as urinary frequency which has been chronic prompting family to eventually bring her in for PCP recommendation for consideration of skilled placement. Patient has had no recent significant upper respiratory symptoms of note. Patient and family report last bowel movement the day prior and decent sized. They do note that she is chronically on lactulose because of her constipation. Work-up in the ED included T98.4, heart 84, BP 164/92, respiratory rate 18, 94% on room air, CBC with WBC 9.1, hemoglobin 12.7, platelet 367 without marked shift, CMP with glucose 135 otherwise not marked appearing, troponin initial 14 with delta repeat 15, lipase 33, lactic acid very minimally elevated 2.1, urinalysis with specific gravity 1.015, protein 15, glucose 1000, ketone 10, occult blood 10 with negative nitrite, negative leukocyte esterase and no urine WBCs/RBCs with rare urine bacteria, rapid SARS COVID and influenza antigen both positive with noted presence of influenza B antigen only, CT abdomen and pelvis with limited visualization of bowel due to lack of opacification with contrast and lack of fat, nonspecific ileus with fecal retention and impaction, incidental finding of hyperattenuating density within the right common femoral vein possibly a thrombus but unclear with recommendation for Doppler scanning of the groin and possibly right lower extremity, CT lumbar spine with multilevel chronic wedge deformity without definitive evidence of any acute fracture, spinal stenosis L4-5 more pronounced on the left secondary to bulging disc and facet arthropathy, chest x-ray with chronic interstitial changes without any significant change, right lower extremity venous duplex ultrasound preliminary read negative, final pending. Hospital Course: 1. Adult failure to thrive with progressive debility and severe protein calorie malnutrition?83-year-old female presented to the hospital with failure to thrive she was complaining of some lower back pain and she was able to have increased ambulation and would work with therapy once she was started on gabapentin which was continued on discharge. Initially it was felt that the weakness was due to COVID and influenza B however these were rechecked and found to be false positives and she remains asymptomatic from an upper respiratory infection standpoint. Given her chronic back pain and her lumbar spinal stenosis we will continue with lidocaine patches and might benefit from being evaluated by pain management while in the transitional care unit. In the meantime we will continue with PT/OT as well as gabapentin and lidocaine patches. I discussed with her the plan for discharge today she expressed understanding of the risk benefits of going to the shelter and would like to go today. 2. Chronic iron deficiency anemia, type 2 diabetes, rheumatoid arthritis, hyperlipidemia are all chronic medical conditions which complicate her care. Her home medications were continued where appropriate Physical Exam Narrative General: Alert, Oriented x3, Cooperative, No apparent distress HEENT: Atraumatic, PERRLA, EOMI, Normocephalic Oral: Moist Mucosa Neck: Supple, No JVD Lungs: Diminished, Normal air movement, No rhonchi, No wheeze, No rales Cardiovascular: Regular rate, Regular Rhythm, Normal S1, Normal S2, No murmurs Abdomen: Soft, Non Tender, Non-Distended, No Hepato-splenomegaly Extremities: No edema, Capillary Refill Less than 3 Seconds Skin: No rashes, No breakdown Musculoskeletal: No Tenderness to Palpation of Joints or Extremities Neurological: Cranial nerves II-XII grossly intact, Motor Exam 5/5 strength throughout, Sensory exam intact to light touch and pain Psych/Mental Status: Normal Affect, Appropriate Weight / BMI Weight Weight: 84 lb 3.465 oz Body Mass Index (BMI) 14.3 ABG / Lab / Microbiology Data 05/31/23 05:05 05/31/23 05:05 Laboratory: Laboratory Results - last 24 hr 05/31/23 05:05: WBC 8.9, RBC 3.45 L, Hgb 11.1 L, Hct 35.2 L, MCV 102.0 H, MCH 32.2 H, MCHC 31.5 L, RDW Std Deviation 52.7 H, RDW Coeff of Ed 14.2, Plt Count 331, MPV 8.6, Immature Gran % (Auto) 0.600, Neut % (Auto) 74.7 H, Lymph % (Auto) 12.7 L, Prentiss % (Auto) 7.2, Eos % (Auto) 4.4, Baso % (Auto) 0.4, Absolute Neuts (auto) 6.7, Absolute Lymphs (auto) 1.13, Nucleated RBC % 0, Sodium 140, Potassium 4.0, Chloride 104, Carbon Dioxide 31.0, Anion Gap 5, BUN 14, Creatinine 0.55, Estim Creat Clear Calc 25.71, Est GFR (MDRD) Af Amer 137, Est GFR (MDRD) Non-Af 113, BUN/Creatinine Ratio 25.6 H, Glucose 250 H, Calcium 8.3 L Microbiology: Microbiology 05/25/23 21:10 Mucosa - Nasopharyngeal Coronavirus COVID-19 PCR - Final 05/25/23 21:10 Mucosa - Nasopharyngeal Respiratory Panel (PCR) - Final 05/25/23 15:37 Nasal Secretion SARS-CoV-2 & FLU Antigen (Rapid) - Final SARS-CoV-2 (COVID 19) Influenzae B Meaningful Use Info Meaningful Use Diagnoses (Choose all that apply): None applicable Discharge Plan Admission Admit Date/Time: 05/25/23 19:33 Attending Provider: Saturnino Londono Primary Care Provider: Victor M Cochran Chi Consulting Providers: Saturnino Londono; Andres Gomez Discharge Orders/Prescriptions Prescriptions: New lidocaine 5 % Adhesive Patch,Medicated 1 patch topical DAILY Qty: 0 0RF Protocol: *Topical Application Instructions APPLICATION INSTRUCTIONS: place on area of back pain gabapentin 100 mg Capsule 100 mg PO TIDCM Qty: 0 0RF tramadol 50 mg Tablet 50 mg PO TID PRN PRN (Reason: Pain Score 6-10) Qty: 0 0RF Continued cholecalciferol (vitamin D3) [Vitamin D3] 1,000 UNIT tablet 2,000 unit PO DAILY baclofen 10 mg tablet 10 mg PO QHS lactulose 10 gram/15 mL solution 30 ml PO BID simethicone [Gas Relief (simethicone)] 80 mg tablet,chewable 80 mg PO BID Rx Instructions: TAKE 1 TABLET BY MOUTH DAILY AFTER MEALS AND AT BEDTIME Farxiga 10 mg tablet 10 mg PO DAILY brimonidine-timolol 0.2-0.5 % drops 1 drp ophthalmic (eye) 0700,1900 acetaminophen [Tylenol Extra Strength] 500 mg tablet 1,000 mg PO BID Referrals / Follow Up: Victor M Cochran Chi, MD [Primary Care Provider] - Disposition Disposition (needs filled in before D/C Order can be placed): [facility] Charges/Coding Visit Charges Inpatient E&M: 93238 Disch Hosp >30min
== END 2023-05-31 14:05 | disposition skilled nursing facility (03) | DRG 640 ==
LOC: ED 19:52 → PCU 05-26 07:05 → MS3 05-29 06:08 → PCU 12-28 17:20
PROVIDERS: Hospitalist; Admitting Provider Family Medicine; Emergency Provider Emergency Medicine; PCP Family Medicine Geriatric Medicine; Visit Provider Family Medicine
DX: R62.7 Adult failure to thrive (principal); E43 Unspecified severe protein-calorie malnutrition; M06.9 Rheumatoid arthritis, unspecified; E11.65 Type 2 diabetes mellitus with hyperglycemia; I82.411 Acute embolism and thrombosis of right femoral vein; K56.7 Ileus, unspecified; Z68.1 Body mass index [BMI] 19.9 or less, adult; D50.9 Iron deficiency anemia, unspecified; E55.9 Vitamin D deficiency, unspecified; I10 Essential (primary) hypertension; E78.00 Pure hypercholesterolemia, unspecified; M48.061 Spinal stenosis, lumbar region without neurogenic claudication; K59.09 Other constipation; G89.29 Other chronic pain; R53.1 Weakness; R53.81 Other malaise; R31.9 Hematuria, unspecified; Z79.84 Long term (current) use of oral hypoglycemic drugs; Z66 Do not resuscitate; Z79.899 Other long term (current) drug therapy; R35.0 Frequency of micturition
CPT/HCPCS: 36415; 71045; 72131; 74177; 80048; 80053; 81001; 82306; 82962; 83605; 83690; 83735; 84100; 84145; 84443; 84484; 85025; 87428; 87633; 87635; 93005; 93971; 94668; 96361; 96365; 96366; 96372; 97110; 97116; 97162; 97166; 97530; 97535; 97802; 99221; 99252; 99285; J7030; J7040; P9612; Q9967; A4216; G0378; G0463

== ENCOUNTER → 2023-05-25 | Outpatient (CLI) | payer MEDICARE, SELFPAY ==
[2023-05-25 17:45] LABS: Absolute Lymphocyte Count 1.23 X10^3/uL (0.83-4.51); Absolute Neutrophil Count 6.1 X10^3/uL (2.0-7.7); Basophil# 0.04 X10^3/uL; Basophil% 0.5 % (0-1); Eosinophil# 0.23 X10^3/uL; Eosinophils% 2.8 % (0-5); Hematocrit 43.7 % (37-47); Hemoglobin 13.3 g/dL (12.0-15.0); Lymphocyte # 1.23 X10^3/ul (0.83-4.51); Lymphocyte % 14.8 % (19-41); Mean Corp Hgb Conc 30.4 g/dL (32-36); Mean Corpuscular Hgb 31.6 pg (27.0-32.0); Mean Corpuscular Volume 103.8 fL (81-99); Mean Platelet Vol. 8.5 fl (6.2-12.0); Monocyte# 0.67 X10^3/uL; Monocyte% 8.1 % (0-10); NRBC Flagged by Analyzer 0 % (0-5); Neutrophil # 6.12 X10^3/uL (2.7-7.7); Neutrophil % 73.6 % (47-70); Platelet Count 465 K/mm3 (150-450); RBC Distribution Width CV 14.1 % (11.6-14.6); RBC Distribution Width SD 53.4 fl (35.1-43.9); Red Blood Count 4.21 M/mm3 (4.2-5.4); White Blood Count 8.3 K/mm3 (4.4-11.0)
[2023-05-25 17:56] LABS: Vitamin D,25 Hydroxy 59.7 ng/mL
[2023-05-25 18:08] LABS: ALB/GLOB Ratio 0.6 RATIO (0.9-2.4); AST(SGOT) 18 U/L (15-37); Alanine Aminotransfer ALT/SGPT 18 U/L (13-56); Alkaline Phosphatase 94 U/L (45-117); Anion Gap 6 (5-15); BUN 15 mg/dL (7-18); BUN/Creat Ratio 19.5 RATIO (10-20); Calcium,Total 9.2 mg/dL (8.5-10.1); Chloride 103 mmol/L (98-107); Creatinine, Serum 0.77 mg/dL (0.55-1.02); EST Glomerular Filtration Rate 76 mL/min (>60); Est Glom Filt Rate - Afr Amer 92 mL/min (>60); Globulin 4.8 g/dL (2.2-4.2); Glucose 155 mg/dL (74-106); Potassium 4.3 mmol/L (3.5-5.1); Protein, Total 7.8 g/dL (6.4-8.2); Sodium Level 139 mmol/L (136-145); Thyroid Stim Hormone (TSH) 5.71 uIU/mL (0.358-3.74)
== END | disposition home or self-care (01) ==
LOC: POLAB3 14:10
PROVIDERS: PCP Family Medicine Geriatric Medicine; Visit Provider Family Medicine Geriatric Medicine
DX: I10 Essential (primary) hypertension (principal); E11.65 Type 2 diabetes mellitus with hyperglycemia; E55.9 Vitamin D deficiency, unspecified
CPT/HCPCS: 36415; 80053; 82306; 84443; 85025

== ENCOUNTER 2023-05-31 14:10 | Inpatient (IN) | payer MEDICARE, SELFPAY ==
[2023-05-31 14:25] VITALS: BP 133/67; PULSE 92; RESP 14; RESP 16; TEMP 37.3; O2SAT 92; BMI 14.6
[2023-05-31 15:00] VITALS: BMI 14.6
[2023-05-31] MEDS: Ensure Plus High Protein 120 ML LIQUID PO ×2 (17:02→22:07)
[2023-05-31] MEDS: Gabapentin 100 MG Capsule PO (17:02)
[2023-05-31] MEDS: Timolol 0.5% 5ML OPTH.BTL EACH EYE (17:03)
[2023-05-31] MEDS: BRIMONIDINE 0.2% 5ML BOTTLE EACH EYE (17:04)
[2023-05-31] MEDS: SimETHICONE 80 MG Chewable Tablet PO ×2 (17:04→22:07)
[2023-05-31] MEDS: traMADol 50 MG Tablet PO (17:10)
--- NOTE | 2023-05-31 19:56 | PCM.HP.STD ---
HPI - General General Date of Admission: 05/31/23 Date of Service: 05/31/23 Chief Complaint: Here for rehabilitation. HPI Narrative 05/25/2023 MARTHA ENGEL, is a 83 F who presents to [facility] ED with FTT. FTT, falls, right thoracic back pain. Unable to care for self. Brother, [id number] live 1/4 mile away, unable to care for patient anymore. CT abdomen/pelvis showed ileus, fecal impaction. Chest X-ray showed interstitial changes. CT lumbar spine multi chronic compression fractures, left L4-L5 disc bulge, facet arthropathy. Doppler right lower extremity negative DVT. 05/25/2023 Admit to Hospital. covid +, influenza b +. PT/OT for debility. Dr. Price kyphoplasty for compression fracture as outpatient. Golytely, enema for constipation. 05/26/2023 Comfortable, no BM, weak. Ensure for malnutrition. Lactulose for constipation. covid, influenza b false positive. 05/27/2023 Feels cold, requiring several blankets. 2 soft BM's yesterday. Pre-CERT for SNF. 05/28/2023 Low back pain, Tramadol, Lidoderm helpful. Repeat covid negative, repeat flu B negative. Dr. Price for low back pain. 05/29/2023 Gabapentin helpful. 05/30/2023 Pain little better. 05/31/2023 Admit to TCU with debility, here for rehabilitation, strengthening, prior to discharge home alone. FORMERLY [facility], [facility] Medical History (Updated 05/31/23 @ 20:[address] Victor M Cochran MD) Diabetes High cholesterol Iron deficiency anemia Osteoarthritis Rheumatoid arthritis Home Medications cholecalciferol (vitamin D3) 25 mcg (1,000 unit) tablet (Vitamin D3) 2,000 unit PO DAILY SUPPLEMENT 07/25/14 [History Last Taken 05/31/23] acetaminophen 500 mg tablet (Tylenol Extra Strength) 1,000 mg PO BID BACK PAIN 05/25/23 [History Last Taken 05/25/23] baclofen 10 mg tablet 10 mg PO QHS MUSCLE SPASMS 05/25/23 [History Last Taken 05/30/23] brimonidine 0.2 %-timolol 0.5 % eye drops 1 drp ophthalmic (eye) 0700,1900 GLAUCOMA 05/25/23 [History Last Taken 05/25/23] dapagliflozin propanediol 10 mg tablet (Farxiga) 10 mg PO DAILY BLOOD SUGARS 05/25/23 [History Last Taken 05/31/23] lactulose 10 gram/15 mL oral solution 30 ml PO BID BOWELS 05/25/23 [History Last Taken 05/25/23] simethicone 80 mg chewable tablet (Gas Relief (simethicone)) 80 mg PO BID GAS RELIEF 05/25/23 [History Last Taken 05/31/23] gabapentin 100 mg capsule 100 mg PO TIDCM Nerve pain #0 caps 05/31/23 [Rx Last Taken 05/31/23] lidocaine 5 % topical patch 1 patch topical DAILY Pain #0 ea 05/31/23 [Rx Last Taken 05/31/23] tramadol 50 mg tablet 50 mg PO TID PRN PRN Pain Score 6-10 #0 tabs 05/31/23 [Rx Last Taken 05/31/23 02:20] Allergy/AdvReac Type Severity Reaction Status Date / Time alendronate sodium Allergy Anaphylaxis Verified 05/25/23 14:57 [From Fosamax] Penicillins Allergy Swelling Verified 05/25/23 14:57 Family History Mother Alzheimer disease Father Myocardial infarction Hypertension Heart disease CAD (coronary artery disease) Surgical History History of surgery on arm S/P ORIF (open reduction internal fixation) fracture Social History household members: none Smoking Status: Never smoker alcohol intake: never substance use type: does not use ROS Constitutional Constitutional: Denies chills, fever(s) or weight gain ENT HEENT: Denies headache(s), nasal congestion or nasal discharge Cardiovascular Cardiovascular: Denies chest pain or palpitations Respiratory/Chest Respiratory/Chest: Denies cough, excessive phlegm production or shortness of breath with exertion Gastrointestinal Gastrointestinal: Denies abdominal pain, nausea or vomiting Genitourinary Genitourinary: Denies dysuria Musculoskeletal Musculoskeletal: Reports back pain; Denies joint pain or joint swelling Integumentary Integumentary: Denies rash or wounds Neurologic Neurologic: Denies focal weakness, numbness or tingling Psychiatric Psychiatric: Denies anxiety, auditory hallucinations, depression, homicidal ideation or suicidal ideation Vital Signs Vital Signs Vital Signs: 05/31/23 14:25 05/31/23 14:25 Temperature 99.1 F Temperature Source Temporal Pulse Rate 92 Pulse Rhythm Regular Pulse Strength Normal (2+) Respiratory Rate 14 16 Respiratory Effort Normal Non-Labored Respiratory Depth Normal Respiratory Pattern Normal Blood Pressure 133/67 H Blood Pressure Mean 89 Blood Pressure Source Monitor Blood Pressure Position Semi-Fowlers Blood Pressure Location Right Arm Pulse Ox 92 Oxygen Delivery Method Room Air Room Air Weight Weight: 38.82 kg Body Mass Index (BMI) 14.6 Physical Exam Const alert General Appearance: cooperative HEENT normocephalic Eyes PERRL and EOMs intact bilaterally Neck supple, no JVD and no carotid bruits Resp normal respiratory effort, normal air movement and clear to auscultation bilaterally Cardio regular rate and regular rhythm GI normal to inspection, nondistended, normoactive bowel sounds, non-tender and non-distended Extremity normal capillary refill General Extremity: Negative for edema Skin no rashes or lesions noted General Skin Exam: no breakdown Psych affect normal Appearance: appropriate Assessment & Plan Assessment/Plan (1) Debility: (2) Adult failure to thrive: (3) Multiple falls: (4) Low back pain: (5) Compression fracture of lumbar spine, non-traumatic: (6) Lumbar radiculopathy: (7) Fecal impaction of colon: (8) Diabetes: (9) Muscle spasm: (10) Glaucoma: (11) Rheumatoid arthritis: PLAN: Plan 83 year old female with below past medical history hospitalized for adult failure to thrive, intractable low back pain, compression fracture lumbar spine, lumbar radiculopathy, lumbar spinal stenosis, admitted to TCU with debility, here for rehabilitation, strengthening, prior to discharge home alone. Debility - PT/OT. Pain - Tylenol 1000mg q8, Tramadol 50mg q6 prn pain (1-5), Oxycodone 2.5mg q4 prn pain (6-10), Lidoderm patch 1 patch daily. Bowel - Lactulose 20gm bid. Adult immunization - Administer pneumonia vaccine, covid vaccine, flu vaccine as appropriate. DVT prophylaxis - Lovenox 30mg sc daily. Muscle spasm - Baclofen 10mg qhs. Glaucoma - Brimonidine ou bid, Timolol ou bid. Vitamin D deficiency - D3 50mcg daily. Diabetes Mellitus II - Jardiance 25mg daily. Nutrition - Ensure Plus 120ml 4x/day. Lumbar radiculopathy - Gabapentin 100mg tidcm. Skin irritation - Calmoseptine topical bid. Gas - Simethicone 80mg pchs. Low back pain/compression fracture lumbar spine/right thoracolumbar radiculopathy/lumbar spinal stenosis - Consult Dr. Green to consider kyphoplasty or lumbar epidural steroid injection for more rapid relief of pain.
[2023-05-31] MEDS: oxyCODONE 5 MG Tablet 2.5 MG PO (20:51)
[2023-05-31] MEDS: Lactulose 20 GM/30 ML UDC PO (22:07)
[2023-05-31] MEDS: Baclofen 10 MG Tablet PO (22:07)
[2023-05-31] MEDS: Acetaminophen 500 MG Tablet 1000 MG PO (22:07)
[2023-05-31] MEDS: Menthol/Lanolin/Calamine/Znox 113 GM Tube 1 APPLIC TOPICAL (22:08)
[2023-05-31] MEDS: 0.9% Saline Lock 10 ML Syringe IV (22:14)
[2023-06-01 05:53] LABS: Absolute Lymphocyte Count 0.91 X10^3/uL (0.83-4.51); Absolute Neutrophil Count 4.9 X10^3/uL (2.0-7.7); Basophil# 0.03 X10^3/uL; Basophil% 0.5 % (0-1); Eosinophil# 0.35 X10^3/uL; Eosinophils% 5.3 % (0-5); Hematocrit 38.9 % (37-47); Lymphocyte # 0.91 X10^3/ul (0.83-4.51); Lymphocyte % 13.8 % (19-41); Mean Corp Hgb Conc 30.8 g/dL (32-36); Mean Corpuscular Hgb 31.7 pg (27.0-32.0); Mean Corpuscular Volume 102.6 fL (81-99); Mean Platelet Vol. 8.5 fl (6.2-12.0); Monocyte# 0.39 X10^3/uL; Monocyte% 5.9 % (0-10); NRBC Flagged by Analyzer 0 % (0-5); Neutrophil # 4.89 X10^3/uL (2.7-7.7); Neutrophil % 74.2 % (47-70); Platelet Count 376 K/mm3 (150-450); RBC Distribution Width SD 53.2 fl (35.1-43.9); Red Blood Count 3.79 M/mm3 (4.2-5.4); White Blood Count 6.6 K/mm3 (4.4-11.0)
[2023-06-01 06:15] LABS: Anion Gap 5 (5-15); BUN 13 mg/dL (7-18); Calcium,Total 8.8 mg/dL (8.5-10.1); Chloride 101 mmol/L (98-107); Creatinine, Serum 0.59 mg/dL (0.55-1.02); EST Glomerular Filtration Rate 103 mL/min (>60); Est Glom Filt Rate - Afr Amer 125 mL/min (>60); Estimated Creatinine Clearance 26.12 ml/min; Glucose 277 mg/dL (74-106); Potassium 4.2 mmol/L (3.5-5.1); Sodium Level 140 mmol/L (136-145)
[2023-06-01] MEDS: BRIMONIDINE 0.2% 5ML BOTTLE EACH EYE ×2 (06:52→18:20)
[2023-06-01] MEDS: Ensure Plus High Protein 120 ML LIQUID PO ×4 (06:52→20:51)
[2023-06-01] MEDS: Enoxaparin 30 MG/0.3 ML Syringe SC (06:52)
[2023-06-01] MEDS: Timolol 0.5% 5ML OPTH.BTL EACH EYE ×2 (06:52→18:21)
[2023-06-01] MEDS: Acetaminophen 500 MG Tablet 1000 MG PO ×3 (06:53→20:50)
[2023-06-01] MEDS: traMADol 50 MG Tablet PO ×2 (06:53→15:28)
[2023-06-01] MEDS: Gabapentin 100 MG Capsule PO ×3 (09:03→18:20)
[2023-06-01] MEDS: SimETHICONE 80 MG Chewable Tablet PO ×4 (09:03→20:50)
[2023-06-01] MEDS: Empagliflozin 25 MG Tablet PO (09:03)
[2023-06-01] MEDS: Lactulose 20 GM/30 ML UDC PO ×2 (09:03→20:51)
[2023-06-01] MEDS: Lidocaine 5% Patch 1 PATCH TOPICAL (09:04)
[2023-06-01] MEDS: Cholecalciferol (VIT D3) 25 MCG TABLET (1,000 UNITS) 50 MCG PO (09:04)
[2023-06-01] MEDS: oxyCODONE 5 MG Tablet 2.5 MG PO ×2 (09:05→13:39)
--- NOTE | 2023-06-01 10:44 | CON.PCM_ITS ---
Assessment & Plan Assessment/Plan (1) Compression fracture of lumbar spine, non-traumatic: QUALIFIERS: Encounter type: sequela PLAN: - L3 Kyphoplasty with Dr. Price has already been submitted and awaiting insurance approval. - I will submit for LESI as she has prior L1-L2 75% relief for a number of weeks and since we are planning for L3 kyphoplasty I will target either L2-L3 or L1-L2 depending upon the fluoroscopic imaging. Additionally, this should provide some relief as we await the kyphoplasty as she has been admitted for failure to thrive largely in the setting of limited functional mobility due to pain. This will need to be approved by insurance. -Prophylactic lovenox will need to be held 12 hours prior to the injection. (2) Low back pain: QUALIFIERS: Back pain laterality: bilateral Chronicity: chronic Sciatica presence: without sciatica Qualified Code(s): M54.50 - Low back pain, unspecified; G89.29 - Other chronic pain PLAN: She is currently being managed with -Tramadol 50mg QID PRN -Oxycodone 2.5mg Q4hr PRN -Tylenol 1000mg Q8hr -Baclofen 10mg QHS It appears she has not been taking all of the PRN medications, so she has room to fill there. Due to age, I am hesitant to start her on NSAID medications, although she does have normal creatinine. HPI Consult Data Date of Consult: 06/01/23 HPI Narrative Reason for Consultation: HPI Narrative: Feli Garcias has a pmh of rheumatoid arthritis, significant spondylosis of the lumbar spine, multiple compression fractures and spinal stenosis.? She follows with Dr. Price and is currently awaiting insurance approval for L3 kyphoplasty as an outpatient.? She was admitted to the hospital for failure to thrive in the setting of significant back pain.? She states that she has also had falls, most recently 3-4 weeks ago, but she is unable to recall specifics.? ? She describes her pain as in the mid to low back the radiation to the flanks.? She denies significant pain in the lower extremities nor buttock.? The pain is worsened with movement and improves with rest. She has been taking a number of pain medications including Baclofen, tylenol, tramadol and oxycodone.? She says she is unsure exactly how much relief she gets from each perspective medication, but it does feel that the oxycodone helps for a bit.? She has been taking 2.5mg per dose.? She previously underwent L1-L2 LESI with 75% relief for a number of weeks.? Significant amount of her current pain is similar to the pain that she had at that time.? She rates the pain as seven out of 10 in severity. She has been taking norco 5-325 1/2 tab as needed up to 4 times a day per [facility] at home. [facility] Medical History (Updated 06/01/23 @ 11:[address] Saturnino Green MD) Diabetes High cholesterol Iron deficiency anemia Osteoarthritis Rheumatoid arthritis Home Medications cholecalciferol (vitamin D3) 25 mcg (1,000 unit) tablet (Vitamin D3) 2,000 unit PO DAILY SUPPLEMENT 07/25/14 [History Last Taken 05/31/23] acetaminophen 500 mg tablet (Tylenol Extra Strength) 1,000 mg PO BID BACK PAIN 05/25/23 [History Last Taken 05/25/23] baclofen 10 mg tablet 10 mg PO QHS MUSCLE SPASMS 05/25/23 [History Last Taken 05/30/23] brimonidine 0.2 %-timolol 0.5 % eye drops 1 drp ophthalmic (eye) 0700,1900 GLAUCOMA 05/25/23 [History Last Taken 05/25/23] dapagliflozin propanediol 10 mg tablet (Farxiga) 10 mg PO DAILY BLOOD SUGARS 05/25/23 [History Last Taken 05/31/23] lactulose 10 gram/15 mL oral solution 30 ml PO BID BOWELS 05/25/23 [History Last Taken 05/25/23] simethicone 80 mg chewable tablet (Gas Relief (simethicone)) 80 mg PO BID GAS RELIEF 05/25/23 [History Last Taken 05/31/23] gabapentin 100 mg capsule 100 mg PO TIDCM Nerve pain #0 caps 05/31/23 [Rx Last Taken 05/31/23] lidocaine 5 % topical patch 1 patch topical DAILY Pain #0 ea 05/31/23 [Rx Last Taken 05/31/23] tramadol 50 mg tablet 50 mg PO TID PRN PRN Pain Score 6-10 #0 tabs 05/31/23 [Rx Last Taken 05/31/23 02:20] Allergy/AdvReac Type Severity Reaction Status Date / Time alendronate sodium Allergy Anaphylaxis Verified 05/25/23 14:57 [From Fosamax] Penicillins Allergy Swelling Verified 05/25/23 14:57 Family History Mother Alzheimer disease Father Myocardial infarction Hypertension Heart disease CAD (coronary artery disease) Surgical History History of surgery on arm S/P ORIF (open reduction internal fixation) fracture Social History household members: none Smoking Status: Never smoker alcohol intake: never substance use type: does not use Physical Exam Narrative Thin. Lumbar: She has lumbar tenderness with palpation along the spine and paraspinous muscles worse with extension. She has pain with percussion over the lumbar region L3. SLR negative for radicular pain. No significant SI tenderness. DTR within normal limits She has tenderness in the flank musculature as well. Const alert, oriented x3 and no apparent distress General Appearance: cooperative HEENT normocephalic Eyes EOMs intact bilaterally Resp normal respiratory effort Psych affect normal Appearance: appropriate Vital Signs/Image Vital Signs/Narrative: Vital Signs O2 Del Method 06/01/23 09:48 Room Air Vital Signs/Image Vital Signs/Narrative: Vital Signs O2 Del Method 06/01/23 09:48 Room Air Medical Records Data Medical Nutrition Assessment Dietitian: Malnutrition Criteria Met Start: 06/01/23 08:52 Freq: Status: Active Protocol: Document 06/01/23 08:52 (Rec: 06/01/23 08:53 [id number]) Nutrition Malnutrition Evidence of Malnutrition Exists Yes Malnutrition (severe): Chronic Evidenced By Suboptimal Energy Intake ( Severe),Weight Loss (Severe), Physical Changes (Severe) Clinical Problem Chronic Disease or Condition Related Malnutrition Etiology severe, chronic malnutrition related to inadequate energy intake Signs/Symptoms as evidenced by severe muscle wasting/fat loss evident per physical exam in orbital, clavicle, acromion, and temporal areas, estimated PO intake meeting <75% of estimated energy needs > 3 months, BMI 14.7, unintentional 4% wt loss < 2 weeks Status Active Problem Recommendation Dietitian Recommendations/Changes continue regular diet and 120mL ensure plus high protein 4x/day w/ medpass given evidence of malnutrition; consider SECURITY ARCHITECT eval if issues chewing/swallowing are evident . Lab / Micro Data 06/01/23 05:13 06/01/23 05:13 Labs: Laboratory Results - last 24 hr 06/01/23 05:13: WBC 6.6, RBC 3.79 L, Hgb 12.0, Hct 38.9, MCV 102.6 H, MCH 31.7, MCHC 30.8 L, RDW Std Deviation 53.2 H, RDW Coeff of Ed 14.0, Plt Count 376, MPV 8.5, Immature Gran % (Auto) 0.300, Neut % (Auto) 74.2 H, Lymph % (Auto) 13.8 L, [place] % (Auto) 5.9, Eos % (Auto) 5.3 H, Baso % (Auto) 0.5, Absolute Neuts (auto) 4.9, Absolute Lymphs (auto) 0.91, Nucleated RBC % 0, Sodium 140, Potassium 4.2, Chloride 101, Carbon Dioxide 34.0 H, Anion Gap 5, BUN 13, Creatinine 0.59, Estim Creat Clear Calc 26.12, Est GFR (MDRD) Af Amer 125, Est GFR (MDRD) Non-Af 103, BUN/Creatinine Ratio 22.0 H, Glucose 277 H, Calcium 8.8 Imagaing 05/25/2023 CT lumbar spine: Multilevel chronic wedge deformities without definitive evidence for acute fracture. Spinal stenosis at L4-5 more pronounced on the left secondary to bulging disc and facet arthropathy
[2023-06-01] MEDS: Menthol/Lanolin/Calamine/Znox 113 GM Tube 1 APPLIC TOPICAL ×2 (11:47→20:57)
[2023-06-01] MEDS: Tuberculin,Purif.prot.deriv. 50 TU/ML Vial 0.1 ML ID (11:51)
[2023-06-01 14:45] VITALS: BP 134/66; PULSE 100; RESP 14; TEMP 36.6; O2SAT 94
--- NOTE | 2023-06-01 14:50 | CHAPLAIN ---
Type of Pastoral Visit ___ Initial Visit _x__ Follow-up Visit ___ On-call Visit ___ General Patient Visit ___ Spiritual Assessment ___ Family Conference ___ Bereavement ___ Rapid Response ___ Code Blue ___ Other (describe below) Pastoral Care Referral From _x__ Patient ___ Family ___ Nurse ___ Physician ___ Career Resource Specialist ___ Laundry Marker Supervisor ___ Other (describe below) Sacrament/Intervention _x__ Active listening ___ Anointing ___ Hindu ___ Bereavement ___ Communion _x__ Samantha exploration ___ ___ Life review _x__ Prayer ___ Reconciliation ___ Sacrament of Sick _x__ Supportive presence ___ Wedding ___ Other (describe below) Pastoral Comments this patient was previously seen last week when on PCU; pt states that pain is high right now and she is holding her right side; pt reports that she has notified nurse but this it software engineer uses the call light again; PINSETTER MECHANIC HELPER responds and verifies that RN has not notified; RN came in a few minutes to administer pain meds; this it software engineer makes attempt to focus attention on other areas of topic to discuss with the patient to divert from her pain; pt talks about her family and her health for a bit; presence and prayer given
--- NOTE | 2023-06-01 15:55 | PHA.CONS_ITS ---
Documented by User: Rick Bruner 06/01/23 16:12 TCU RX Drug Regimen Review Subjective/Objective Subjective/Objective: Subjective: 83 year old female with below past medical history hospitalized for adult failure to thrive, intractable low back pain, compression fracture lumbar spine, lumbar radiculopathy, lumbar spinal stenosis, admitted to TCU with debility, here for rehabilitation, strengthening, prior to discharge home alone. Objective: Allergies alendronate sodium [From Fosamax] Allergy (Verified 05/25/23 14:57) Anaphylaxis Penicillins Allergy (Verified 05/25/23 14:57) Swelling Current Medications Generic Name Dose Route Start Last Admin Trade Name Freq PRN Reason Stop Dose Admin Acetaminophen 1,000 mg 05/31/23 22:00 06/01/23 15:28 Acetaminophen 500 Mg Tablet PO 1,000 mg Q8 LYRIC Administration Baclofen 10 mg 05/31/23 22:00 05/31/23 22:07 Baclofen 10 Mg Tablet PO 10 mg QHS LYRIC Administration Brimonidine Tartrate 0 drp 05/31/23 18:00 06/01/23 06:52 Brimonidine 0.2% 5ml Bottle EACH EYE 1 drp 0600,1800 LYRIC Administration Calamine/Phenol 1 applic 05/31/23 22:00 06/01/23 11:47 Menthol/Lanolin/Calamine/Znox 113 Gm Tube TOPICAL 1 applic BID LYRIC Administration Protocol Cholecalciferol 50 mcg 06/01/23 10:00 06/01/23 09:04 Cholecalciferol (Vit D3) 25 Mcg Tablet (1,000 Units) PO 50 mcg DAILY LYRIC Administration Empagliflozin 25 mg 06/01/23 10:00 06/01/23 09:03 Empagliflozin 25 Mg Tablet PO 25 mg DAILY LYRIC Administration Enoxaparin Sodium 30 mg 06/01/23 06:00 06/01/23 06:52 Enoxaparin 30 Mg/0.3 Ml Syringe SC 30 mg 0600 LYRIC Administration Gabapentin 100 mg 05/31/23 17:45 06/01/23 13:38 Gabapentin 100 Mg Capsule PO 100 mg TIDCM LYRIC Administration Lactulose 20 gm 05/31/23 22:00 06/01/23 09:03 Lactulose 20 Gm/30 Ml Udc PO 20 gm BID LYRIC Administration Lidocaine 1 patch 06/01/23 10:00 06/01/23 09:04 Lidocaine 5% Patch TOPICAL 1 patch DAILY LYRIC Administration Protocol Nutritional Formula (Lactose Free) 120 ml 05/31/23 17:00 06/01/23 11:53 Ensure Plus High Protein 120 Ml Liquid PO 120 ml 4X/DAY LYRIC Administration Oxycodone HCl 2.5 mg 05/31/23 20:12 06/01/23 13:39 Oxycodone 5 Mg Tablet PO 2.5 mg Q4H PRN PRN Administration Pain Score 6-10 Simethicone 80 mg 05/31/23 18:00 06/01/23 13:38 Simethicone 80 Mg Chewable Tablet PO 80 mg PCHS LYRIC Administration Sodium Chloride 10 - 40 ml 05/31/23 14:44 05/31/23 22:14 0.9% Saline Lock 10 Ml Syringe IV 10 ml UD PRN Administration SALINE FLUSH Sodium Chloride 10 - 40 ml 05/31/23 14:49 0.9% Saline Lock 10 Ml Syringe IV UD PRN SALINE FLUSH Timolol Maleate 0 drp 05/31/23 18:00 06/01/23 06:52 Timolol 0.5% 5ml Opth.Btl EACH EYE 1 drp 0600,1800 LYRIC Administration Tramadol HCl 50 mg 05/31/23 20:13 06/01/23 15:28 Tramadol 50 Mg Tablet PO 50 mg Q6H PRN PRN Administration Pain Score 1-5 Tuberculin PPD 0.1 ml 06/08/23 10:00 Tuberculin,Purif.Prot.Deriv. 50 Tu/Ml Vial ID 06/08/23 10:01 X1 ONE Problem List (Updated 06/01/23 @ 11:[address] Saturnino Green MD) Glaucoma (Acute) Muscle spasm (Acute) Diabetes (Acute) Fecal impaction of colon (Acute) Lumbar radiculopathy (Acute) Compression fracture of lumbar spine, non-traumatic (Acute) Low back pain (Acute) Multiple falls (Acute) Debility (Acute) Adult failure to thrive (Acute) Rheumatoid arthritis (Chronic) Vital Signs Temp Pulse Resp BP Pulse Ox O2 Del Method 97.8 F 100 14 134/66 H 94 Room Air 06/01/23 14:45 06/01/23 14:45 06/01/23 14:45 06/01/23 14:45 06/01/23 14:45 06/01/23 14:45 Oxygen Delivery Method Room Air Weight: 38.82 kg Body Mass Index (BMI) 14.6 Sodium 140 mmol/L (136-145) 06/01/23 05:13 Potassium 4.2 mmol/L (3.5-5.1) 06/01/23 05:13 Chloride 101 mmol/L (98-107) 06/01/23 05:13 Carbon Dioxide 34.0 mmol/L (21.0-32.0) H 06/01/23 05:13 Anion Gap 5 (5-15) 06/01/23 05:13 BUN 13 mg/dL (7-18) 06/01/23 05:13 Creatinine 0.59 mg/dL (0.55-1.02) 06/01/23 05:13 Est GFR (MDRD) Af Amer 125 mL/min (>60) 06/01/23 05:13 Est GFR (MDRD) Non-Af 103 mL/min (>60) 06/01/23 05:13 BUN/Creatinine Ratio 22.0 RATIO (10-20) H 06/01/23 05:13 Glucose 277 mg/dL (74-106) H 06/01/23 05:13 Assessment/Plan: 1. Pain: acetaminophen 1000 mg PO Q8H, tramadol 50 mg PO Q6H PRN pain (1-5), oxycodone 2.5 mg PO Q4H PRN pain (6-10), lidocaine 5% 1 patch topically daily. T he patient has used 3 doses of oxycodone and 2 doses of tramadol so far this admission. Please continue to monitor pain levels, PRN medication usage, LFTs (AST/ALT = 14/18 U/L on 05/26/23), for respiratory depression, for drowsiness, for dizziness, syncope, ataxia, falls, rash, and renal function (serum creatinine = 0.59 mg/dL with creatinine clearance ~ 26 on 06/01/23). 2. Bowel: lactulose 20 grams PO BID. The patient's last bowel movement is documented on 05/2023. Please continue to monitor for diarrhea and constipation. 3. Diabetes Mellitus II: empagliflozin 25 mg PO daily. Please continue to monitor blood glucose levels (BG = 277 mg/dL on 06/01/23), hemoglobin A1C (A1C = 6.9% on 07/26/14), GFR (GFR = ~103 mL/min on 06/01/23), for urinary tract infections, for dehydration, and for ketosis. The patient's last two blood glucose readings on their labs have been elevated, and the patient's A1C is out of date. Please consider adding an additional agent for blood glucose control such as metformin 1000 mg PO BID, or a sliding scale rapid acting insulin TID with meals. The patient also has not had an A1C within 3 months, please consider re-ordering a hemoglobin A1C. 4. DVT prophylaxis: enoxaparin 30 mg SC daily. Please continue to monitor for s/s of a DVT such as lower extremity swelling/pain/erythema, for bleeding/excessive bruising, hemoglobin levels (Hgb =12.0 g/dL on 06/01/23), platelet count (Plt = 376 K/mm3 on 06/01/23), as well as renal function (serum creatinine = 0.59 mg/dL with creatinine clearance ~ 26 on 06/01/23). 5. Muscle spasm/lumbar radiculopathy: baclofen 10 mg PO QHS, gabapentin 100 mg PO TID with meals. Please continue to monitor for muscle spasms, nerve pain, for sedation, confusion, nausea/vomiting, for lower extremity edema, and for SI. 6. Glaucoma: timolol 0.5% 1 drop in each eye BID, brimonidine 1 drop in each eye BID. Please continue to monitor eye health, for blurred vision, for stinging/burning in the eyes, for drowsiness, and blood pressures. 7. Vitamin D deficiency: cholecalciferol 50 mcg PO daily. Please continue to monitor for s/s of vitamin D deficiency as well as vitamin D levels (vitamin D = 59.7 on 05/25/23). 8. Gas: simethicone 80 mg PO PCHS. Please continue to monitor for effectiveness of simethicone. 9. Nutrition: ensure plus high protein 120 mL PO 4x/day. Please continue to monitor overall nutritional status. 10. Skin irritation: calmoseptine 1 application topically BID. Please continue to monitor for skin irritation and skin integrity. Assessment/Plan for indications treated with psychotropic medications: NA Medical chart and medication regimen reviewed. The following medication irregularities or issues were identified: 1. Diabetes Mellitus II: empagliflozin 25 mg PO daily. The patient's last two blood glucose readings on their labs have been elevated, and the patient's A1C is out of date. Please consider adding an additional agent for blood glucose control such as metformin 1000 mg PO BID, or a sliding scale rapid acting insulin TID with meals. The patient also has not had an A1C within 3 months, please consider re-ordering a hemoglobin A1C. Date Date of Note:: 06/01/23 Documented by User: Dr. Victor M Cochran MD 06/01/23 17:21 TCU RX Drug Regimen Review Provider Comments Provider responsibility Provider Comments to Recommendations by Pharmacy: Agree
[2023-06-01] MEDS: Baclofen 10 MG Tablet PO (20:50)
[2023-06-02] MEDS: Ensure Plus High Protein 120 ML LIQUID PO ×4 (06:09→22:06)
[2023-06-02] MEDS: Timolol 0.5% 5ML OPTH.BTL EACH EYE ×2 (06:10→17:09)
[2023-06-02] MEDS: Acetaminophen 500 MG Tablet 1000 MG PO ×3 (06:10→22:06)
[2023-06-02] MEDS: Enoxaparin 30 MG/0.3 ML Syringe SC (06:10)
[2023-06-02] MEDS: BRIMONIDINE 0.2% 5ML BOTTLE EACH EYE ×2 (06:11→17:08)
[2023-06-02] MEDS: Gabapentin 100 MG Capsule PO ×3 (08:40→17:08)
[2023-06-02] MEDS: SimETHICONE 80 MG Chewable Tablet PO ×4 (08:41→22:06)
[2023-06-02] MEDS: Lidocaine 5% Patch 1 PATCH TOPICAL (08:41)
[2023-06-02] MEDS: Menthol/Lanolin/Calamine/Znox 113 GM Tube 1 APPLIC TOPICAL ×2 (08:41→22:12)
[2023-06-02] MEDS: Cholecalciferol (VIT D3) 25 MCG TABLET (1,000 UNITS) 50 MCG PO (08:42)
[2023-06-02] MEDS: Lactulose 20 GM/30 ML UDC PO (08:42)
[2023-06-02] MEDS: Empagliflozin 25 MG Tablet PO (08:42)
[2023-06-02] MEDS: oxyCODONE 5 MG Tablet 2.5 MG PO (08:46)
[2023-06-02 14:56] VITALS: BP 107/44; PULSE 96; RESP 18; TEMP 36.7; O2SAT 100
--- NOTE | 2023-06-02 17:10 | CASEMGMT ---
Social Work Met with patient to complete initial assessment. Introduced self and role. Verified contacts. Educated to [facility] insurance with NRD 06/06 and continued stay is not guaranteed. Pt's goal is to return home alone. However, brother and MELLISSA stated they cannot to assist pt as the high intensity pt needed prior to admission. [facility]. SW to provide. SW to discuss DC plans with family as well. Kellen De La Rosa, PROJECT CREW WORKER MARINE DESIGN ENGINEER
--- NOTE | 2023-06-02 17:11 | CASEMGMT ---
Social Work SW requested to pt for brother to provide copies of pt's advanced directives. Pt agreed. Kellen De La Rosa, CERTIFIED EXECUTIVE CHEF DENTAL ASSISTANT TEACHER
[2023-06-02] MEDS: Baclofen 10 MG Tablet PO (22:06)
[2023-06-03] MEDS: traMADol 50 MG Tablet PO ×2 (05:31→21:39)
[2023-06-03] MEDS: Ensure Plus High Protein 120 ML LIQUID PO ×3 (05:32→21:39)
[2023-06-03] MEDS: Timolol 0.5% 5ML OPTH.BTL EACH EYE ×2 (05:32→18:02)
[2023-06-03] MEDS: Enoxaparin 30 MG/0.3 ML Syringe SC (05:33)
[2023-06-03] MEDS: Acetaminophen 500 MG Tablet 1000 MG PO ×3 (05:34→21:38)
[2023-06-03] MEDS: BRIMONIDINE 0.2% 5ML BOTTLE EACH EYE ×2 (05:38→18:01)
[2023-06-03 06:38] VITALS: PULSE 93; RESP 16; O2SAT 94
[2023-06-03 07:08] LABS: Bedside Glucose 134 mg/dL (74-106)
[2023-06-03] MEDS: SimETHICONE 80 MG Chewable Tablet PO ×4 (08:17→21:39)
[2023-06-03] MEDS: Gabapentin 100 MG Capsule PO ×3 (08:17→18:01)
[2023-06-03] MEDS: Lactulose 20 GM/30 ML UDC PO (08:18)
[2023-06-03] MEDS: Empagliflozin 25 MG Tablet PO (08:18)
[2023-06-03] MEDS: Cholecalciferol (VIT D3) 25 MCG TABLET (1,000 UNITS) 50 MCG PO (08:18)
[2023-06-03] MEDS: Lidocaine 5% Patch 1 PATCH TOPICAL (08:19)
[2023-06-03] MEDS: Menthol/Lanolin/Calamine/Znox 113 GM Tube 1 APPLIC TOPICAL ×2 (08:19→21:39)
[2023-06-03 15:47] VITALS: BP 123/60; PULSE 85; RESP 16; TEMP 37.7; O2SAT 100
--- NOTE | 2023-06-03 17:05 | RAD_ITS ---
STUDY: X-RAY CHEST REASON FOR EXAM: Female, 83 years old. cough,fever TECHNIQUE: PA and lateral views of the chest. COMPARISON: 05/25/2023. FINDINGS: The lungs are slightly underexpanded. There is mild biapical pleural thickening. There is left basilar density suggestive of atelectasis versus infiltrate with mild left-sided pleural effusion versus pleural thickening. There are underlying emphysematous changes. Normal size heart. Normal mediastinum and zbigniew. Normal visualized pulmonary arteries. There is atherosclerotic calcification of the aortic arch with tortuosity. Diffuse osteoporosis with multilevel degenerative disease of the spine. Multiple compression fractures throughout the mid lower thoracic spine, unchanged since March 13, 2023. There is increased kyphosis. There is no demonstrated abnormality of the visualized soft tissue structures of the upper abdomen. RAD/Chest PA and Lateral IMPRESSION: Possible underlying COPD/emphysematous changes with left basilar density suggestive of atelectasis versus infiltrate. Possible minimal left-sided pleural effusion versus pleural thickening. Nonspecific biapical pleural thickening. Electronically Signed: Danya Yousif MD at 17:26 EST ,
--- NOTE | 2023-06-03 17:05 | NURSING ---
Patient noted to have more fatigue today- low grade temperature noted. Moist productive cough noted w/ rubbing in the lungs. Also tachycardia noted. MD notified. 100 mg BID of doxycycline started for 7 days w/ CXR PA & Lat. Resp panel and covid to be completed as well. Family/ Patient notified.
[2023-06-03] MEDS: Doxycycline 100 MG CAPSULE PO ×2 (18:01→21:39)
[2023-06-03] MEDS: Baclofen 10 MG Tablet PO (21:39)
--- NOTE | 2023-06-03 21:43 | NURSING ---
Spoke w/ Dr. Cochran via phone to update on pt's congestion as noted per previous shift. PCR panel is pending. New orders received and read back for Robitussin DM 10 ml po every 6 hours PRN cough and Duoneb 3ml via inhalation every 6 hours WA.
--- NOTE | 2023-06-03 21:55 | NURSING ---
Received a call from [place] in the lab reporting pt is positive for RSV A.
--- NOTE | 2023-06-03 22:02 | NURSING ---
Spoke w/ Dr. Cochran via phone to update on result for positive RSV A. COVID was not part of resp PCR panel. Per Dr. Cochran, pt has sufficient tx for RSV and COVID PCR test is not indicated, directions repeated back per this nurse.
[2023-06-04] MEDS: Enoxaparin 30 MG/0.3 ML Syringe SC (06:18)
[2023-06-04] MEDS: Ensure Plus High Protein 120 ML LIQUID PO ×2 (06:18→21:47)
[2023-06-04] MEDS: BRIMONIDINE 0.2% 5ML BOTTLE EACH EYE ×2 (06:18→17:04)
[2023-06-04] MEDS: Timolol 0.5% 5ML OPTH.BTL EACH EYE ×2 (06:18→17:05)
[2023-06-04] MEDS: Acetaminophen 500 MG Tablet 1000 MG PO ×3 (06:18→21:48)
[2023-06-04 07:20] VITALS: PULSE 88; RESP 16; O2SAT 92
[2023-06-04] MEDS: Ipratropium/Albuterol Sulfate 3 ML AMPUL.NEB INHALATION (07:21)
[2023-06-04] MEDS: Gabapentin 100 MG Capsule PO ×3 (10:03→17:04)
[2023-06-04] MEDS: Lidocaine 5% Patch 1 PATCH TOPICAL (10:03)
[2023-06-04] MEDS: Doxycycline 100 MG CAPSULE PO ×2 (10:04→21:47)
[2023-06-04] MEDS: Cholecalciferol (VIT D3) 25 MCG TABLET (1,000 UNITS) 50 MCG PO (10:04)
[2023-06-04] MEDS: Empagliflozin 25 MG Tablet PO (10:05)
[2023-06-04] MEDS: SimETHICONE 80 MG Chewable Tablet PO ×4 (10:06→21:47)
[2023-06-04] MEDS: Menthol/Lanolin/Calamine/Znox 113 GM Tube 1 APPLIC TOPICAL ×2 (10:06→21:58)
[2023-06-04 11:32] LABS: Bedside Glucose 217 mg/dL (74-106)
[2023-06-04 15:12] VITALS: BP 124/76; PULSE 72; RESP 16; TEMP 36.6; O2SAT 97
[2023-06-04 20:15] VITALS: O2SAT 93
[2023-06-04] MEDS: Baclofen 10 MG Tablet PO (21:47)
[2023-06-04] MEDS: Lactulose 20 GM/30 ML UDC PO (21:47)
[2023-06-04 22:00] VITALS: PULSE 85; RESP 16; O2SAT 96
[2023-06-04] MEDS: traMADol 50 MG Tablet PO (22:21)
[2023-06-05] MEDS: Timolol 0.5% 5ML OPTH.BTL EACH EYE ×2 (06:01→17:27)
[2023-06-05] MEDS: Ensure Plus High Protein 120 ML LIQUID PO ×3 (06:02→17:27)
[2023-06-05] MEDS: Enoxaparin 30 MG/0.3 ML Syringe SC (06:03)
[2023-06-05] MEDS: Acetaminophen 500 MG Tablet 1000 MG PO ×3 (06:04→20:40)
[2023-06-05] MEDS: BRIMONIDINE 0.2% 5ML BOTTLE EACH EYE ×2 (06:12→17:28)
[2023-06-05 06:16] LABS: Bedside Glucose 140 mg/dL (74-106)
[2023-06-05 07:40] VITALS: PULSE 76; RESP 16; O2SAT 94
[2023-06-05] MEDS: Doxycycline 100 MG CAPSULE PO ×2 (08:47→20:40)
[2023-06-05] MEDS: Cholecalciferol (VIT D3) 25 MCG TABLET (1,000 UNITS) 50 MCG PO (08:47)
[2023-06-05] MEDS: SimETHICONE 80 MG Chewable Tablet PO ×4 (08:47→20:40)
[2023-06-05] MEDS: Gabapentin 100 MG Capsule PO ×3 (08:47→17:27)
[2023-06-05] MEDS: Lidocaine 5% Patch 1 PATCH TOPICAL (08:47)
[2023-06-05] MEDS: Empagliflozin 25 MG Tablet PO (08:48)
[2023-06-05] MEDS: Menthol/Lanolin/Calamine/Znox 113 GM Tube 1 APPLIC TOPICAL ×2 (08:48→20:38)
[2023-06-05] MEDS: traMADol 50 MG Tablet PO ×2 (12:33→20:38)
[2023-06-05 15:21] VITALS: BP 120/36; PULSE 91; RESP 16; TEMP 36.6; O2SAT 95
[2023-06-05 15:24] VITALS: BP 106/49
[2023-06-05] MEDS: guaiFENesin Dm 10 ML UDC PO (15:56)
[2023-06-05] MEDS: Baclofen 10 MG Tablet PO (20:40)
[2023-06-06] MEDS: Ensure Plus High Protein 120 ML LIQUID PO ×4 (06:13→21:26)
[2023-06-06] MEDS: Enoxaparin 30 MG/0.3 ML Syringe SC (06:14)
[2023-06-06] MEDS: BRIMONIDINE 0.2% 5ML BOTTLE EACH EYE ×2 (06:14→17:56)
[2023-06-06] MEDS: Acetaminophen 500 MG Tablet 1000 MG PO ×3 (06:14→21:26)
[2023-06-06] MEDS: Timolol 0.5% 5ML OPTH.BTL EACH EYE ×2 (06:19→17:56)
[2023-06-06 06:52] VITALS: PULSE 84; RESP 14; O2SAT 94
[2023-06-06 06:57] LABS: Bedside Glucose 83 mg/dL (74-106)
[2023-06-06] MEDS: Gabapentin 100 MG Capsule PO ×3 (08:19→17:53)
[2023-06-06] MEDS: SimETHICONE 80 MG Chewable Tablet PO ×4 (08:19→21:26)
[2023-06-06] MEDS: Lactulose 20 GM/30 ML UDC PO (08:21)
[2023-06-06] MEDS: Cholecalciferol (VIT D3) 25 MCG TABLET (1,000 UNITS) 50 MCG PO (08:21)
[2023-06-06] MEDS: Doxycycline 100 MG CAPSULE PO ×2 (08:21→21:26)
[2023-06-06] MEDS: Empagliflozin 25 MG Tablet PO (08:21)
[2023-06-06] MEDS: Lidocaine 5% Patch 1 PATCH TOPICAL (08:21)
[2023-06-06] MEDS: Menthol/Lanolin/Calamine/Znox 113 GM Tube 1 APPLIC TOPICAL ×2 (08:22→22:32)
--- NOTE | 2023-06-06 12:02 | NURSING ---
Offered Covid vaccine, VIS provided. Patient refuses at this time.
[2023-06-06] MEDS: traMADol 50 MG Tablet PO (13:46)
[2023-06-06 16:00] VITALS: BP 110/61; PULSE 89; RESP 16; TEMP 37.7
[2023-06-06] MEDS: oxyCODONE 5 MG Tablet 2.5 MG PO (18:01)
[2023-06-06] MEDS: Baclofen 10 MG Tablet PO (21:26)
[2023-06-07] MEDS: Enoxaparin 30 MG/0.3 ML Syringe SC (05:34)
[2023-06-07] MEDS: Ensure Plus High Protein 120 ML LIQUID PO ×4 (05:34→21:18)
[2023-06-07] MEDS: Acetaminophen 500 MG Tablet 1000 MG PO ×3 (05:35→21:17)
[2023-06-07] MEDS: BRIMONIDINE 0.2% 5ML BOTTLE EACH EYE ×2 (05:38→17:55)
[2023-06-07] MEDS: Timolol 0.5% 5ML OPTH.BTL EACH EYE ×2 (05:38→17:56)
[2023-06-07 06:46] LABS: Bedside Glucose 183 mg/dL (74-106)
[2023-06-07] MEDS: Gabapentin 100 MG Capsule PO ×3 (09:28→17:52)
[2023-06-07] MEDS: Lactulose 20 GM/30 ML UDC PO (09:29)
[2023-06-07] MEDS: Doxycycline 100 MG CAPSULE PO ×2 (09:29→21:18)
[2023-06-07] MEDS: SimETHICONE 80 MG Chewable Tablet PO ×4 (09:29→21:18)
[2023-06-07] MEDS: Lidocaine 5% Patch 1 PATCH TOPICAL (09:30)
[2023-06-07] MEDS: Cholecalciferol (VIT D3) 25 MCG TABLET (1,000 UNITS) 50 MCG PO (09:30)
[2023-06-07] MEDS: Empagliflozin 25 MG Tablet PO (09:30)
[2023-06-07] MEDS: Menthol/Lanolin/Calamine/Znox 113 GM Tube 1 APPLIC TOPICAL ×2 (09:35→21:18)
--- NOTE | 2023-06-07 12:12 | NURSING ---
Felt Hat Mellowing Machine Operator Note; Activity Asset: Complete Feli is independent in her choice of daily activities. When not visiting with family and friends she enjoys reading the newspaper, working on word puzzles or watching tv. Feli welcomes visits from the green ware caster as well. Staff will remind her of in room and group activities and respect her right to say no.
--- NOTE | 2023-06-07 13:53 | CASEMGMT ---
Social Work IDT met with pt's brother and MELLISSA for care plan meeting. Pt is newly in COVID precautions and family opted to complete POC mtg outside of room and relay information to pt after the meeting. Discussed patient's progress in PT/OT/SN. [facility] and continued stay is not guaranteed with each review. SW inquired about DC plan as family is unable to assist at prior capacity. Family agrees and stated pt has long-term care policy. SW educated to financial liability of [place], SNF, [facility] and reimbursement process of the LTC policy. Family agreeable to SNF at pt's current LOF. IDT agrees. Family prefer to remain in [facility], and agreeable to referrals to [facility] and [facility]. Family agreeable to pursue LTC policy for specifics. SW offered ongoing assistance with DC planning. SW provided printed lists of [facility], [place], medical alert, [place]; [place] and [facility] list with quality and resource data via [employer]. Family appreciative. Kellen De La Rosa, HEADEND TECHNICIAN AUTOMOTIVE DETAILER
[2023-06-07 14:29] VITALS: BP 143/71; PULSE 97; RESP 20; TEMP 36.7; O2SAT 93
--- NOTE | 2023-06-07 16:39 | CASEMGMT ---
Social Work: BIMS score is 10/15 and PHQ-9 is 04/07 - completed for MDS assessment. PHQ-9 score indicated depression which was discussed with pt. Pt. indicated that she is ready to go home but realizes that she has problems since she got sick. She is concerned with getting in and out of bed, and going to the bathroom by herself. Pt reports she feels very tired and now has tested positive for Covid. Pt reports showing interset in completing wordsearches during say and remains optimistic for recovery with the goal to return home. Pt denies any interventions for depression at this time, reporting decline in mood is situational d/t admission. SW will continue to monitor. ALYX Hernandez
[2023-06-07 21:00] VITALS: PULSE 98; RESP 16; O2SAT 95
[2023-06-07] MEDS: Baclofen 10 MG Tablet PO (21:18)
[2023-06-07] MEDS: guaiFENesin Dm 10 ML UDC PO (21:22)
[2023-06-08] MEDS: Enoxaparin 30 MG/0.3 ML Syringe SC (05:44)
[2023-06-08] MEDS: Acetaminophen 500 MG Tablet 1000 MG PO ×3 (05:45→21:06)
[2023-06-08] MEDS: Ensure Plus High Protein 120 ML LIQUID PO ×4 (05:45→21:06)
[2023-06-08] MEDS: traMADol 50 MG Tablet PO ×3 (05:46→21:08)
[2023-06-08] MEDS: Timolol 0.5% 5ML OPTH.BTL EACH EYE ×2 (05:57→17:22)
[2023-06-08] MEDS: BRIMONIDINE 0.2% 5ML BOTTLE EACH EYE ×2 (05:57→17:21)
[2023-06-08 06:08] LABS: Absolute Lymphocyte Count 1.11 X10^3/uL (0.83-4.51); Absolute Neutrophil Count 5.8 X10^3/uL (2.0-7.7); Basophil# 0.03 X10^3/uL; Basophil% 0.4 % (0-1); Eosinophil# 0.42 X10^3/uL; Eosinophils% 5.2 % (0-5); Hematocrit 33.8 % (37-47); Hemoglobin 10.7 g/dL (12.0-15.0); Lymphocyte # 1.11 X10^3/ul (0.83-4.51); Lymphocyte % 13.8 % (19-41); Mean Corp Hgb Conc 31.7 g/dL (32-36); Mean Corpuscular Hgb 31.7 pg (27.0-32.0); Mean Platelet Vol. 8.5 fl (6.2-12.0); Monocyte# 0.56 X10^3/uL; NRBC Flagged by Analyzer 0 % (0-5); Neutrophil # 5.84 X10^3/uL (2.7-7.7); Neutrophil % 72.5 % (47-70); Platelet Count 529 K/mm3 (150-450); RBC Distribution Width CV 14.6 % (11.6-14.6); RBC Distribution Width SD 53.2 fl (35.1-43.9); Red Blood Count 3.38 M/mm3 (4.2-5.4); White Blood Count 8.1 K/mm3 (4.4-11.0)
[2023-06-08 06:15] VITALS: PULSE 86; RESP 18; O2SAT 96
[2023-06-08 06:39] LABS: Bedside Glucose 164 mg/dL (74-106)
[2023-06-08 06:48] LABS: Anion Gap 5 (5-15); BUN 17 mg/dL (7-18); BUN/Creat Ratio 35.2 RATIO (10-20); Calcium,Total 8.9 mg/dL (8.5-10.1); Chloride 106 mmol/L (98-107); Creatinine, Serum 0.48 mg/dL (0.55-1.02); EST Glomerular Filtration Rate 130 mL/min (>60); Est Glom Filt Rate - Afr Amer 158 mL/min (>60); Estimated Creatinine Clearance 26.12 ml/min; Glucose 135 mg/dL (74-106); Potassium 3.7 mmol/L (3.5-5.1); Sodium Level 140 mmol/L (136-145)
[2023-06-08] MEDS: Lidocaine 5% Patch 1 PATCH TOPICAL (07:56)
[2023-06-08] MEDS: Cholecalciferol (VIT D3) 25 MCG TABLET (1,000 UNITS) 50 MCG PO (07:56)
[2023-06-08] MEDS: SimETHICONE 80 MG Chewable Tablet PO ×4 (07:56→21:06)
[2023-06-08] MEDS: Empagliflozin 25 MG Tablet PO (07:56)
[2023-06-08] MEDS: Doxycycline 100 MG CAPSULE PO ×2 (08:00→21:06)
[2023-06-08] MEDS: Menthol/Lanolin/Calamine/Znox 113 GM Tube 1 APPLIC TOPICAL ×2 (08:01→21:07)
[2023-06-08] MEDS: Gabapentin 100 MG Capsule PO ×3 (08:01→17:15)
[2023-06-08] MEDS: Tuberculin,Purif.prot.deriv. 50 TU/ML Vial 0.1 ML ID (09:53)
--- NOTE | 2023-06-08 11:19 | CASEMGMT ---
Addendum entered by Kellen De La Rosa 06/09/23 11:59: GERRY phoned MELLISSA to update on SNF acceptances. Explained [facility] can accept pt, but is OON, but if pt remains LTC, [place] can receive one-time contracts for skilled services as needed; [facility] and [facility] can accept pt. MELLISSA and brother on the phone and both prefer [facility] as first choice. [facility] found out from LTC policy that pt must be in LTC for 30 days prior to reimbursement to begin. [facility] also informed this worker that insurance approved precert for back injections, but injections were only approved on an OP basis, so pt must be DC'd to receive those injections. Updated family that pt is OOI on 06/14. Family appreicative. SW will continue to follow for DC planning and await insurance outcome 06/13. Original Note: Social Work SW spoke with MELLISSA and brother via phone call. Updated both that insurance approved with NRD 06/13, but anticipating DC 06/16. [facility] would like referrals to the SNFs to determine acceptance, as that is the DC plan currently. MELLISSA to contact the LTC policy today to gather plan information. SW offered ongoing assistance with DC planning. SNF referrals made via [facility]. Kellen De La Rosa, KILN CLEANER HIGH SCHOOL ACADEMIC COACH
[2023-06-08 11:59] VITALS: BP 111/62; PULSE 82; RESP 16; TEMP 35.6; O2SAT 97
[2023-06-08] MEDS: oxyCODONE 5 MG Tablet 2.5 MG PO (17:19)
[2023-06-08] MEDS: Lactulose 20 GM/30 ML UDC PO (21:06)
[2023-06-08] MEDS: Baclofen 10 MG Tablet PO (21:06)
[2023-06-09] MEDS: Enoxaparin 30 MG/0.3 ML Syringe SC (05:55)
[2023-06-09] MEDS: Acetaminophen 500 MG Tablet 1000 MG PO ×3 (05:55→22:00)
[2023-06-09] MEDS: Ensure Plus High Protein 120 ML LIQUID PO ×3 (05:58→17:15)
[2023-06-09] MEDS: Timolol 0.5% 5ML OPTH.BTL EACH EYE ×2 (06:07→17:21)
[2023-06-09] MEDS: BRIMONIDINE 0.2% 5ML BOTTLE EACH EYE ×2 (06:08→17:21)
[2023-06-09 06:21] LABS: Bedside Glucose 118 mg/dL (74-106)
[2023-06-09] MEDS: Empagliflozin 25 MG Tablet PO (09:08)
[2023-06-09] MEDS: SimETHICONE 80 MG Chewable Tablet PO ×4 (09:08→22:01)
[2023-06-09] MEDS: Lidocaine 5% Patch 1 PATCH TOPICAL (09:08)
[2023-06-09] MEDS: Gabapentin 100 MG Capsule PO ×3 (09:08→17:16)
[2023-06-09] MEDS: Doxycycline 100 MG CAPSULE PO ×2 (09:08→22:01)
[2023-06-09] MEDS: Cholecalciferol (VIT D3) 25 MCG TABLET (1,000 UNITS) 50 MCG PO (09:09)
[2023-06-09] MEDS: Menthol/Lanolin/Calamine/Znox 113 GM Tube 1 APPLIC TOPICAL ×2 (09:11→22:07)
--- NOTE | 2023-06-09 09:25 | NURSING ---
Police Chief Deputy Note; MDS for 06/08/2023 Complete
[2023-06-09 10:00] VITALS: PULSE 82; RESP 18; O2SAT 96
[2023-06-09 16:00] VITALS: BP 125/65; PULSE 80; RESP 18; TEMP 35.8; O2SAT 98
[2023-06-09 16:07] VITALS: O2SAT 99
[2023-06-09] MEDS: guaiFENesin Dm 10 ML UDC PO (17:16)
[2023-06-09] MEDS: oxyCODONE 5 MG Tablet 2.5 MG PO (18:01)
--- NOTE | 2023-06-09 18:46 | NURSING ---
Addendum entered by Jean-Pierre Pink 06/09/23 19:40: on unit at shift change, per dayshift RN (Velia) KUB to be cancelled per Dr. Scanlon Original Note: Pt C/O of right sided flank pain. Abdomen distended and firm to touch. Dr. Scanlon updated N.O. for KUB. Order read back.
[2023-06-09] MEDS: Baclofen 10 MG Tablet PO (22:01)
[2023-06-10 06:19] LABS: Bedside Glucose 93 mg/dL (74-106)
[2023-06-10] MEDS: Acetaminophen 500 MG Tablet 1000 MG PO ×3 (06:44→21:10)
[2023-06-10] MEDS: Enoxaparin 30 MG/0.3 ML Syringe SC (06:44)
[2023-06-10] MEDS: BRIMONIDINE 0.2% 5ML BOTTLE EACH EYE ×2 (06:49→17:05)
[2023-06-10] MEDS: Timolol 0.5% 5ML OPTH.BTL EACH EYE ×2 (06:55→17:05)
[2023-06-10] MEDS: Lidocaine 5% Patch 1 PATCH TOPICAL (08:06)
[2023-06-10] MEDS: Gabapentin 100 MG Capsule PO ×3 (08:06→17:01)
[2023-06-10] MEDS: SimETHICONE 80 MG Chewable Tablet PO ×4 (08:07→21:10)
[2023-06-10] MEDS: Cholecalciferol (VIT D3) 25 MCG TABLET (1,000 UNITS) 50 MCG PO (08:07)
[2023-06-10] MEDS: Doxycycline 100 MG CAPSULE PO (08:07)
[2023-06-10] MEDS: Menthol/Lanolin/Calamine/Znox 113 GM Tube 1 APPLIC TOPICAL ×2 (08:08→20:35)
[2023-06-10] MEDS: Empagliflozin 25 MG Tablet PO (08:08)
[2023-06-10 10:00] VITALS: PULSE 84; RESP 17; O2SAT 96
[2023-06-10] MEDS: Lactulose 20 GM/30 ML UDC PO ×2 (10:48→21:10)
[2023-06-10] MEDS: Ensure Clear 120 ML Liquid PO ×3 (10:49→21:10)
[2023-06-10 16:00] VITALS: BP 135/80; PULSE 81; RESP 16; TEMP 36.4; O2SAT 98
[2023-06-10] MEDS: traMADol 50 MG Tablet PO (17:01)
[2023-06-10] MEDS: Baclofen 10 MG Tablet PO (21:10)
[2023-06-11] MEDS: BRIMONIDINE 0.2% 5ML BOTTLE EACH EYE ×2 (06:52→17:08)
[2023-06-11] MEDS: Timolol 0.5% 5ML OPTH.BTL EACH EYE ×2 (06:53→17:08)
[2023-06-11] MEDS: Acetaminophen 500 MG Tablet 1000 MG PO ×3 (06:55→23:50)
[2023-06-11] MEDS: Enoxaparin 30 MG/0.3 ML Syringe SC (06:58)
[2023-06-11 07:09] LABS: Bedside Glucose 127 mg/dL (74-106)
[2023-06-11] MEDS: SimETHICONE 80 MG Chewable Tablet PO ×4 (08:50→23:51)
[2023-06-11] MEDS: Cholecalciferol (VIT D3) 25 MCG TABLET (1,000 UNITS) 50 MCG PO (08:50)
[2023-06-11] MEDS: Empagliflozin 25 MG Tablet PO (08:50)
[2023-06-11] MEDS: Gabapentin 100 MG Capsule PO ×3 (08:50→17:08)
[2023-06-11] MEDS: Lidocaine 5% Patch 1 PATCH TOPICAL (08:50)
[2023-06-11] MEDS: Lactulose 20 GM/30 ML UDC PO ×2 (08:50→23:50)
[2023-06-11] MEDS: Menthol/Lanolin/Calamine/Znox 113 GM Tube 1 APPLIC TOPICAL (09:41)
[2023-06-11 14:21] VITALS: BP 129/66; PULSE 103; RESP 16; TEMP 36.1; O2SAT 98
[2023-06-11] MEDS: Baclofen 10 MG Tablet PO (23:52)
--- NOTE | 2023-06-12 05:07 | NURSING ---
Left vm for Kellen GARRETT, to report pt verbalized concerns w/ insurance paperwork pertaining to services post dc from TCU and requested f/u.
[2023-06-12] MEDS: Enoxaparin 30 MG/0.3 ML Syringe SC (06:33)
[2023-06-12] MEDS: Acetaminophen 500 MG Tablet 1000 MG PO ×3 (06:33→22:07)
[2023-06-12] MEDS: Timolol 0.5% 5ML OPTH.BTL EACH EYE ×2 (06:37→17:21)
[2023-06-12] MEDS: BRIMONIDINE 0.2% 5ML BOTTLE EACH EYE ×2 (06:38→17:22)
[2023-06-12] MEDS: Cholecalciferol (VIT D3) 25 MCG TABLET (1,000 UNITS) 50 MCG PO (08:43)
[2023-06-12] MEDS: SimETHICONE 80 MG Chewable Tablet PO ×4 (08:43→22:08)
[2023-06-12] MEDS: Gabapentin 100 MG Capsule PO ×3 (08:44→17:19)
[2023-06-12] MEDS: Lactulose 20 GM/30 ML UDC PO ×2 (08:44→22:08)
[2023-06-12] MEDS: Empagliflozin 25 MG Tablet PO (08:44)
[2023-06-12] MEDS: Menthol/Lanolin/Calamine/Znox 113 GM Tube 1 APPLIC TOPICAL ×2 (08:51→22:08)
[2023-06-12] MEDS: Lidocaine 5% Patch 1 PATCH TOPICAL (08:54)
[2023-06-12 11:30] VITALS: PULSE 87; RESP 16; O2SAT 97
--- NOTE | 2023-06-12 14:31 | NURSING ---
ALL CARE GIVEN IN ROOM DUE TO PT IN PRECAUTIONS FOR COVID.
[2023-06-12 15:43] VITALS: BP 115/67; PULSE 89; RESP 16; TEMP 36.4; O2SAT 98
[2023-06-12] MEDS: guaiFENesin Dm 10 ML UDC PO (22:08)
[2023-06-12] MEDS: Baclofen 10 MG Tablet PO (22:08)
[2023-06-13 06:07] LABS: Bedside Glucose 109 mg/dL (74-106)
[2023-06-13] MEDS: Acetaminophen 500 MG Tablet 1000 MG PO ×3 (06:27→21:07)
[2023-06-13] MEDS: Enoxaparin 30 MG/0.3 ML Syringe SC (06:27)
[2023-06-13] MEDS: Ensure Clear 120 ML Liquid PO ×3 (06:30→21:09)
[2023-06-13] MEDS: Timolol 0.5% 5ML OPTH.BTL EACH EYE ×2 (06:32→18:41)
[2023-06-13] MEDS: BRIMONIDINE 0.2% 5ML BOTTLE EACH EYE ×2 (06:32→18:41)
[2023-06-13 07:30] LABS: Bedside Glucose 140 mg/dL (74-106)
--- NOTE | 2023-06-13 07:55 | MDS.RN ---
Information for the mds was obtained from review of the clinical record, interview of resident, staff, and direct observation of resident's care.
[2023-06-13] MEDS: Empagliflozin 25 MG Tablet PO (09:10)
[2023-06-13] MEDS: Gabapentin 100 MG Capsule PO ×3 (09:10→18:40)
[2023-06-13] MEDS: Menthol/Lanolin/Calamine/Znox 113 GM Tube 1 APPLIC TOPICAL ×2 (09:11→21:21)
[2023-06-13] MEDS: Lidocaine 5% Patch 1 PATCH TOPICAL (09:11)
[2023-06-13] MEDS: SimETHICONE 80 MG Chewable Tablet PO ×4 (09:11→21:07)
[2023-06-13] MEDS: Cholecalciferol (VIT D3) 25 MCG TABLET (1,000 UNITS) 50 MCG PO (09:11)
[2023-06-13] MEDS: Lactulose 20 GM/30 ML UDC PO ×2 (09:11→21:07)
[2023-06-13 16:00] VITALS: BP 163/98; PULSE 85; RESP 16; TEMP 36.3; O2SAT 99
--- NOTE | 2023-06-13 16:38 | CASEMGMT ---
Social Work Insurance issued LCD 06/15, DC 06/16. SW phoned MELLISSA to update on DC. MELLISSA agreeable and confirmed plans to DC to [facility], private pay. MELLISSA and brother prefer pt gets a w/c transport. SW to schedule. SW trainee spoke with pt to update pt on DC. Pt agreeable. SW updated [facility] via [employer]. Scheduled w/c transport through [facility] for 1100. PASRR completed. Plan: DC 06/16, to [facility], intermediate, private pay, part B therapies Kellen De La Rosa, MYA ANTONIOW
[2023-06-13] MEDS: Baclofen 10 MG Tablet PO (21:08)
[2023-06-13] MEDS: guaiFENesin Dm 10 ML UDC PO (21:16)
[2023-06-13 21:45] VITALS: O2SAT 96
[2023-06-14] MEDS: Ensure Clear 120 ML Liquid PO ×4 (04:50→21:35)
[2023-06-14] MEDS: BRIMONIDINE 0.2% 5ML BOTTLE EACH EYE ×2 (04:52→17:34)
[2023-06-14] MEDS: Timolol 0.5% 5ML OPTH.BTL EACH EYE ×2 (04:52→17:34)
[2023-06-14] MEDS: Acetaminophen 500 MG Tablet 1000 MG PO ×3 (04:53→21:35)
[2023-06-14] MEDS: Enoxaparin 30 MG/0.3 ML Syringe SC (04:53)
[2023-06-14 05:16] LABS: Bedside Glucose 121 mg/dL (74-106)
--- NOTE | 2023-06-14 07:40 | PCM.DC.SUM ---
Providers Date of Admission: 05/31/23 Primary Care Physician: Dr. Victor M Cochran MD Consultations 05/31/23 17:54 Consult: Pain Management Routine Consulting Provider: Saturnino Green Reason for Consult: Compression fracture lumbar spine, lumbar spinal stenosis. EMERGENT Consult: No MD Notified: Yes Date Notified: 06/01/23 Time Notified: 08:59 Method of Notification: Verbal Reason For Visit: ADULT FTT Diagnosis Discharge Diagnosis (1) Compression fracture of lumbar spine, non-traumatic: Status: Acute Code(s): M48.56XA - Collapsed vertebra, not elsewhere classified, lumbar region, initial encounter for fracture Qualifiers: Encounter type: sequela (2) Low back pain: Status: Acute Code(s): M54.50 - Low back pain, unspecified Qualifiers: Chronicity: chronic Back pain laterality: bilateral Sciatica presence: without sciatica Qualified Code(s): M54.50 - Low back pain, unspecified; G89.29 - Other chronic pain Plan 83 year old female with below past medical history hospitalized for adult failure to thrive, intractable low back pain, compression fracture lumbar spine, lumbar radiculopathy, lumbar spinal stenosis, admitted to TCU with debility, here for rehabilitation, strengthening, prior to discharge home alone. Debility - PT/OT. Pain - Tylenol 1000mg q8, Tramadol 50mg q6 prn pain (1-5), Oxycodone 2.5mg q4 prn pain (6-10), Lidoderm patch 1 patch daily. Bowel - Lactulose 20gm bid. Adult immunization - Administer pneumonia vaccine, covid vaccine, flu vaccine as appropriate. DVT prophylaxis - Lovenox 30mg sc daily. Muscle spasm - Baclofen 10mg qhs. Glaucoma - Brimonidine ou bid, Timolol ou bid. Vitamin D deficiency - D3 50mcg daily. Diabetes Mellitus II - Jardiance 25mg daily. Nutrition - Ensure Plus 120ml 4x/day. Lumbar radiculopathy - Gabapentin 100mg tidcm. Skin irritation - Calmoseptine topical bid. Gas - Simethicone 80mg pchs. Low back pain/compression fracture lumbar spine/right thoracolumbar radiculopathy/lumbar spinal stenosis - Consult Dr. Green to consider kyphoplasty or lumbar epidural steroid injection for more rapid relief of pain. Medications at Discharge Home Medications cholecalciferol (vitamin D3) 25 mcg (1,000 unit) tablet (Vitamin D3) 2,000 unit PO DAILY SUPPLEMENT 07/25/14 baclofen 10 mg tablet 10 mg PO QHS MUSCLE SPASMS 05/25/23 dapagliflozin propanediol 10 mg tablet (Farxiga) 10 mg PO DAILY BLOOD SUGARS 05/25/23 gabapentin 100 mg capsule 100 mg PO TIDCM Nerve pain #0 caps 05/31/23 acetaminophen 500 mg tablet 1,000 mg (2 x 500 mg) PO Q8 #0 tabs 06/14/23 brimonidine 0.2 % eye drops 1 drp EACH EYE 0600,1800 #0 mL 06/14/23 dextromethorphan-guaifenesin 10 mg-100 mg/5 mL oral syrup 10 ml PO Q6H PRN PRN COUGH #0 mL 06/14/23 food supplemt, lactose-reduced (Ensure Clear oral liquid) 120 ml PO 4X/DAY #0 mL 06/14/23 lactulose 20 gram/30 mL oral solution 20 g (30 mL) PO BID #0 mL 06/14/23 lidocaine 5 % topical patch 1 patch topical DAILY #0 ea 06/14/23 menthol 0.44 %-zinc oxide 20.6 % topical ointment (Calmoseptine) 1 applic topical BID #0 grams 06/14/23 simethicone 80 mg chewable tablet 80 mg PO PCHS #0 tabs 06/14/23 timolol maleate 0.5 % eye drops 1 drp EACH EYE 0600,1800 #0 mL 06/14/23 tramadol 50 mg tablet 50 mg PO Q6H PRN PRN Pain Score 1-5 3 days #12 tabs 06/14/23 Hospital Course Operations None Procedures None Summary of Care Provided Minutes Spent on Discharge: 35 Hospital Course: 83 year old female with below past medical history hospitalized for adult failure to thrive, intractable low back pain, compression fracture lumbar spine, lumbar radiculopathy, lumbar spinal stenosis, admitted to TCU with debility, here for rehabilitation, strengthening, prior to discharge home alone. Dr. Green saw resident for back pain, 06/07/2023 resident positive covid19, no procedures were done. Discharge to [facility] 06/16/2023, intermediate, private pay, part B therapies. Physical Exam Const alert General Appearance: cooperative HEENT normocephalic Eyes PERRL and EOMs intact bilaterally Neck supple, no JVD and no carotid bruits Resp normal respiratory effort, normal air movement and clear to auscultation bilaterally Cardio regular rate and regular rhythm GI normal to inspection, nondistended, normoactive bowel sounds, non-tender and non-distended Extremity normal capillary refill General Extremity: Negative for edema Skin no rashes or lesions noted General Skin Exam: no breakdown Psych affect normal Appearance: appropriate Medical Records Data Medical Nutrition Assessment Dietitian: Malnutrition Criteria Met Start: 06/01/23 08:52 Freq: Status: Active Protocol: Document 06/07/23 15:12 SLA (Rec: 06/07/23 15:12 SLA Desktop) Nutrition Malnutrition Evidence of Malnutrition Exists Yes Malnutrition (severe): Chronic Evidenced By Suboptimal Energy Intake ( Severe),Weight Loss (Severe), Physical Changes (Severe) Clinical Problem Chronic Disease or Condition Related Malnutrition Etiology severe, chronic malnutrition related to inadequate energy intake Signs/Symptoms as evidenced by severe muscle wasting/fat loss evident per physical exam in orbital, clavicle, acromion, and temporal areas, estimated PO intake meeting <75% of estimated energy needs > 3 months, BMI 14.7, 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 Weight / BMI Weight Weight: 38.82 kg Body Mass Index (BMI) 14.6 ABG / Lab / Microbiology Data 06/08/23 05:21 06/08/23 05:21 Laboratory: Laboratory Results - last 24 hr 06/14/23 04:51: POC Glucose 121 H Microbiology: Microbiology 06/07/23 09:06 Mucosa - Nasopharyngeal Coronavirus COVID-19 PCR - Final SARS-CoV-2 (COVID 19 PCR) 06/03/23 17:21 Mucosa - Nose Respiratory Panel (PCR) - Final RSV A 06/03/23 17:10 Nasal Secretion SARS-CoV-2 & FLU Antigen (Rapid) - Final SARS-CoV-2 (COVID 19) Influenzae B D/C Instructions Discharge Diet: No restrictions Discharge Activity: Return to Normal Activity, May Shower and Use Walker Weight Bearing Status: Weight bearing as tolerated Call your doctor if you observe: Fever of 101 or Higher, Inability to urinate, Inability to have a bowel movement, Shortness of breath, Dizziness, Fainting spells, Swelling in the ankles, Chest pain and Uncontrolled pain Additional Instructions: Discharge to [facility] 06/16/2023, intermediate, private pay, part B therapies. Meaningful Use Info Meaningful Use Diagnoses (Choose all that apply): None applicable Discharge Plan Admission Admit Date/Time: 05/31/23 14:10 Primary Reason for Your Visit: Debility. Attending Provider: Victor M Cochran Chi Primary Care Provider: Victor M Cochran Chi Consulting Providers: Saturnino Green Instructions Additional Instructions / Restrictions: Discharge to [facility] 06/16/2023, intermediate, private pay, part B therapies. Discharge Orders/Prescriptions Prescriptions: New dextromethorphan-guaifenesin 10-100 mg/5 mL Syrup 10 ml PO Q6H PRN PRN (Reason: COUGH) Qty: 0 0RF tramadol 50 mg Tablet 50 mg PO Q6H PRN PRN (Reason: Pain Score 1-5) 3 Days Qty: 12 0RF acetaminophen 500 mg Tablet 1,000 mg PO Q8 Qty: 0 0RF lidocaine 5 % Adhesive Patch,Medicated 1 patch topical DAILY Qty: 0 0RF Protocol: *Topical Application Instructions APPLICATION INSTRUCTIONS: Apply to back brimonidine 0.2 % Drops 1 drp EACH EYE 0600,1800 Qty: 0 0RF timolol maleate 0.5 % Drops 1 drp EACH EYE 0600,1800 Qty: 0 0RF simethicone 80 mg Tablet,Chewable 80 mg PO PCHS Qty: 0 0RF Ensure Clear Liquid 120 ml PO 4X/DAY Qty: 0 0RF menthol-zinc oxide [Calmoseptine] 0.44-20.6 % Ointment 1 applic topical BID Qty: 0 0RF Protocol: *Topical Application Instructions APPLICATION INSTRUCTIONS: Apply to buttock lactulose 20 gram/30 mL Solution 20 g PO BID Qty: 0 0RF Continued cholecalciferol (vitamin D3) [Vitamin D3] 1,000 UNIT tablet 2,000 unit PO DAILY baclofen 10 mg tablet 10 mg PO QHS Farxiga 10 mg tablet 10 mg PO DAILY gabapentin 100 mg Capsule 100 mg PO TIDCM Qty: 0 0RF Discontinued lactulose 10 gram/15 mL solution 30 ml PO BID simethicone [Gas Relief (simethicone)] 80 mg tablet,chewable 80 mg PO BID Rx Instructions: TAKE 1 TABLET BY MOUTH DAILY AFTER MEALS AND AT BEDTIME brimonidine-timolol 0.2-0.5 % drops 1 drp ophthalmic (eye) 0700,1900 acetaminophen [Tylenol Extra Strength] 500 mg tablet 1,000 mg PO BID lidocaine 5 % Adhesive Patch,Medicated 1 patch topical DAILY Qty: 0 0RF Protocol: *Topical Application Instructions APPLICATION INSTRUCTIONS: place on area of back pain tramadol 50 mg Tablet 50 mg PO TID PRN PRN (Reason: Pain Score 6-10) Qty: 0 0RF Referrals / Follow Up: Victor M Cochran Chi, MD [Primary Care Provider] - Disposition Disposition (needs filled in before D/C Order can be placed): NonSkilled NH/Intermed Care
--- NOTE | 2023-06-14 07:49 | TREXTCAR_ITS ---
Diet Diet Order/Speech Therapy: 05/31/23 14:40 Diet: Regular - General Food consistency:: Regular Liquid Consistency:: Regular/Thin Diet Comments: res to order at least 3 items/meal (mashed potatoes/gravy, etc counts as 1) Routine Orders/Code Status Code Status: DNRCC-A (No intubation.) Wound(s) Right plantar: Wound Type: Callused areas Left plantar: Wound Type: Callused areas/dry right buttock: Wound Type: Pressure Injury Dressing Change: Calmoseptine Therapies Weight Bearing: Weight bearing as tolerated Extremity Affected:: Bilateral Lower Physical Therapy: Eval and Treat Occupational Therapy: Eval and Treat Problem/Diagnosis (1) Compression fracture of lumbar spine, non-traumatic: Status: Acute Code(s): M48.56XA - Collapsed vertebra, not elsewhere classified, lumbar region, initial encounter for fracture (2) Low back pain: Status: Acute Code(s): M54.50 - Low back pain, unspecified Plan 83 year old female with below past medical history hospitalized for adult failure to thrive, intractable low back pain, compression fracture lumbar spine, lumbar radiculopathy, lumbar spinal stenosis, admitted to TCU with debility, here for rehabilitation, strengthening, prior to discharge home alone. * Debility - PT/OT. * Pain - Tylenol 1000mg q8, Tramadol 50mg q6 prn pain (1-5), Oxycodone 2.5mg q4 prn pain (6-10), Lidoderm patch 1 patch daily. * Bowel - Lactulose 20gm bid. * Adult immunization - Administer pneumonia vaccine, covid vaccine, flu vaccine as appropriate. * DVT prophylaxis - Lovenox 30mg sc daily. * Muscle spasm - Baclofen 10mg qhs. * Glaucoma - Brimonidine ou bid, Timolol ou bid. * Vitamin D deficiency - D3 50mcg daily. * Diabetes Mellitus II - Jardiance 25mg daily. * Nutrition - Ensure Plus 120ml 4x/day. * Lumbar radiculopathy - Gabapentin 100mg tidcm. * Skin irritation - Calmoseptine topical bid. * Gas - Simethicone 80mg pchs. * Low back pain/compression fracture lumbar spine/right thoracolumbar radiculopathy/lumbar spinal stenosis - Consult Dr. Green to consider kyphoplasty or lumbar epidural steroid injection for more rapid relief of pain. Allergies/Procedures Done in Hospital Allergies alendronate sodium [From Fosamax] Allergy (Verified 05/25/23 14:57) Anaphylaxis Penicillins Allergy (Verified 05/25/23 14:57) Swelling Procedures: None Type of Care/Length of Stay Estimated LOS: More Than 30 Days Type of Care Needed: Intermediate Rehab Potential: Fair Prognosis: Poor Additional Orders/Day of Discharge Additional Orders: part B therapies Day of Discharge: 06/16/23 Dietary and Speech Recommendations Dietitian Recommendations/Changes: continue regular diet and 120mL ensure plus high protein 4x/day w/ medpass d/t signs/symptoms of malnutrition; rec appetite stimulant to help encourage increased po intake; encourage res to order 3 food items per meal; family to bring in food from home if desired; consider TWISTER TENDER PAPER eval if issues chewing/swallowing are evident. Discharge Plan Admission Admit Date/Time: 05/31/23 14:10 Primary Reason for Your Visit: Debility. Attending Provider: Victor M Cochran Chi Primary Care Provider: Victor M Cochran Chi Consulting Providers: Saturnino Green Instructions Additional Instructions / Restrictions: Discharge to [facility] 06/16/2023, intermediate, private pay, part B therapies. Discharge Orders/Prescriptions Prescriptions: New dextromethorphan-guaifenesin 10-100 mg/5 mL Syrup 10 ml PO Q6H PRN PRN (Reason: COUGH) Qty: 0 0RF tramadol 50 mg Tablet 50 mg PO Q6H PRN PRN (Reason: Pain Score 1-5) 3 Days Qty: 12 0RF acetaminophen 500 mg Tablet 1,000 mg PO Q8 Qty: 0 0RF lidocaine 5 % Adhesive Patch,Medicated 1 patch topical DAILY Qty: 0 0RF Protocol: *Topical Application Instructions APPLICATION INSTRUCTIONS: Apply to back brimonidine 0.2 % Drops 1 drp EACH EYE 0600,1800 Qty: 0 0RF timolol maleate 0.5 % Drops 1 drp EACH EYE 0600,1800 Qty: 0 0RF simethicone 80 mg Tablet,Chewable 80 mg PO PCHS Qty: 0 0RF Ensure Clear Liquid 120 ml PO 4X/DAY Qty: 0 0RF menthol-zinc oxide [Calmoseptine] 0.44-20.6 % Ointment 1 applic topical BID Qty: 0 0RF Protocol: *Topical Application Instructions APPLICATION INSTRUCTIONS: Apply to buttock lactulose 20 gram/30 mL Solution 20 g PO BID Qty: 0 0RF Continued cholecalciferol (vitamin D3) [Vitamin D3] 1,000 UNIT tablet 2,000 unit PO DAILY baclofen 10 mg tablet 10 mg PO QHS Farxiga 10 mg tablet 10 mg PO DAILY gabapentin 100 mg Capsule 100 mg PO TIDCM Qty: 0 0RF Discontinued lactulose 10 gram/15 mL solution 30 ml PO BID simethicone [Gas Relief (simethicone)] 80 mg tablet,chewable 80 mg PO BID Rx Instructions: TAKE 1 TABLET BY MOUTH DAILY AFTER MEALS AND AT BEDTIME brimonidine-timolol 0.2-0.5 % drops 1 drp ophthalmic (eye) 0700,1900 acetaminophen [Tylenol Extra Strength] 500 mg tablet 1,000 mg PO BID lidocaine 5 % Adhesive Patch,Medicated 1 patch topical DAILY Qty: 0 0RF Protocol: *Topical Application Instructions APPLICATION INSTRUCTIONS: place on area of back pain tramadol 50 mg Tablet 50 mg PO TID PRN PRN (Reason: Pain Score 6-10) Qty: 0 0RF Referrals / Follow Up: Victor M Cochran Chi, MD [Primary Care Provider] - Disposition Disposition (needs filled in before D/C Order can be placed): NonSkilled NH/Intermed Care (1) Compression fracture of lumbar spine, non-traumatic Qualifiers: Encounter type: sequela (2) Low back pain Qualifiers: Chronicity: chronic Back pain laterality: bilateral Sciatica presence: without sciatica Qualified Code(s): M54.50 - Low back pain, unspecified; G89.29 - Other chronic pain
[2023-06-14] MEDS: Gabapentin 100 MG Capsule PO ×3 (08:27→17:34)
[2023-06-14] MEDS: SimETHICONE 80 MG Chewable Tablet PO ×4 (08:28→21:35)
[2023-06-14 10:00] VITALS: RESP 17; O2SAT 99
[2023-06-14] MEDS: Lidocaine 5% Patch 1 PATCH TOPICAL (10:35)
[2023-06-14] MEDS: Cholecalciferol (VIT D3) 25 MCG TABLET (1,000 UNITS) 50 MCG PO (10:35)
[2023-06-14] MEDS: Lactulose 20 GM/30 ML UDC PO ×2 (10:35→21:35)
[2023-06-14] MEDS: Menthol/Lanolin/Calamine/Znox 113 GM Tube 1 APPLIC TOPICAL ×2 (10:36→21:35)
[2023-06-14] MEDS: Empagliflozin 25 MG Tablet PO (10:37)
[2023-06-14 10:40] VITALS: BMI 13.4
[2023-06-14 15:14] VITALS: BP 102/63; PULSE 100; RESP 14; TEMP 36.7; O2SAT 97
[2023-06-14] MEDS: Baclofen 10 MG Tablet PO (21:35)
[2023-06-15] MEDS: Ensure Clear 120 ML Liquid PO ×3 (05:27→17:46)
[2023-06-15] MEDS: Enoxaparin 30 MG/0.3 ML Syringe SC (05:29)
[2023-06-15] MEDS: BRIMONIDINE 0.2% 5ML BOTTLE EACH EYE ×2 (05:29→17:50)
[2023-06-15] MEDS: Timolol 0.5% 5ML OPTH.BTL EACH EYE ×2 (05:29→17:55)
[2023-06-15] MEDS: Acetaminophen 500 MG Tablet 1000 MG PO ×3 (05:30→22:17)
[2023-06-15 05:44] VITALS: RESP 16
[2023-06-15 05:57] LABS: Absolute Lymphocyte Count 1.81 X10^3/uL (0.83-4.51); Absolute Neutrophil Count 4.7 X10^3/uL (2.0-7.7); Basophil# 0.04 X10^3/uL; Basophil% 0.5 % (0-1); Eosinophil# 0.27 X10^3/uL; Eosinophils% 3.6 % (0-5); Hematocrit 30.1 % (37-47); Hemoglobin 9.4 g/dL (12.0-15.0); Lymphocyte # 1.81 X10^3/ul (0.83-4.51); Mean Corp Hgb Conc 31.2 g/dL (32-36); Mean Corpuscular Hgb 31.6 pg (27.0-32.0); Mean Corpuscular Volume 101.3 fL (81-99); Mean Platelet Vol. 8.1 fl (6.2-12.0); Monocyte# 0.65 X10^3/uL; Monocyte% 8.6 % (0-10); NRBC Flagged by Analyzer 0 % (0-5); Neutrophil # 4.71 X10^3/uL (2.7-7.7); Neutrophil % 62.6 % (47-70); Platelet Count 675 K/mm3 (150-450); RBC Distribution Width CV 15.3 % (11.6-14.6); RBC Distribution Width SD 55.8 fl (35.1-43.9); Red Blood Count 2.97 M/mm3 (4.2-5.4); White Blood Count 7.5 K/mm3 (4.4-11.0)
[2023-06-15 06:14] LABS: Bedside Glucose 149 mg/dL (74-106)
[2023-06-15 06:22] LABS: Anion Gap 4 (5-15); BUN 7 mg/dL (7-18); BUN/Creat Ratio 11.3 RATIO (10-20); Calcium,Total 9.1 mg/dL (8.5-10.1); Chloride 105 mmol/L (98-107); Creatinine, Serum 0.62 mg/dL (0.55-1.02); EST Glomerular Filtration Rate 98 mL/min (>60); Est Glom Filt Rate - Afr Amer 119 mL/min (>60); Estimated Creatinine Clearance 23.96 ml/min; Glucose 140 mg/dL (74-106); Potassium 3.8 mmol/L (3.5-5.1); Sodium Level 138 mmol/L (136-145)
[2023-06-15] MEDS: Gabapentin 100 MG Capsule PO ×3 (08:36→17:47)
[2023-06-15] MEDS: SimETHICONE 80 MG Chewable Tablet PO ×4 (08:36→22:18)
[2023-06-15] MEDS: Empagliflozin 25 MG Tablet PO (08:36)
[2023-06-15] MEDS: Lidocaine 5% Patch 1 PATCH TOPICAL (08:36)
[2023-06-15] MEDS: Menthol/Lanolin/Calamine/Znox 113 GM Tube 1 APPLIC TOPICAL ×2 (08:37→22:16)
[2023-06-15] MEDS: Cholecalciferol (VIT D3) 25 MCG TABLET (1,000 UNITS) 50 MCG PO (08:37)
[2023-06-15 09:41] LABS: Hemoglobin A1c 8.3 % (3.8-5.6)
[2023-06-15 13:26] VITALS: BP 114/60; PULSE 79; RESP 14; TEMP 36.2; O2SAT 98
--- NOTE | 2023-06-15 16:45 | CASEMGMT ---
Social Work BIMS () and PHQ-2 (06/13) completed for MDS assessment. Kellen De La Rosa MSW DERRICK MAN
--- NOTE | 2023-06-15 18:38 | NURSING ---
Unable to reach office regarding PN vaccine status. Dr. Langford confirm that patient needs no further PN vaccines at this time.
[2023-06-15] MEDS: Lactulose 20 GM/30 ML UDC PO (22:17)
[2023-06-15] MEDS: Baclofen 10 MG Tablet PO (22:18)
[2023-06-16] MEDS: BRIMONIDINE 0.2% 5ML BOTTLE EACH EYE (06:36)
[2023-06-16] MEDS: Acetaminophen 500 MG Tablet 1000 MG PO (06:37)
[2023-06-16] MEDS: Enoxaparin 30 MG/0.3 ML Syringe SC (06:38)
[2023-06-16] MEDS: Timolol 0.5% 5ML OPTH.BTL EACH EYE (06:38)
[2023-06-16 06:48] LABS: Bedside Glucose 109 mg/dL (74-106)
[2023-06-16] MEDS: Menthol/Lanolin/Calamine/Znox 113 GM Tube 1 APPLIC TOPICAL (08:02)
[2023-06-16] MEDS: Gabapentin 100 MG Capsule PO (08:02)
[2023-06-16] MEDS: SimETHICONE 80 MG Chewable Tablet PO (08:02)
[2023-06-16] MEDS: Cholecalciferol (VIT D3) 25 MCG TABLET (1,000 UNITS) 50 MCG PO (08:03)
[2023-06-16] MEDS: Empagliflozin 25 MG Tablet PO (08:03)
[2023-06-16] MEDS: Lidocaine 5% Patch 1 PATCH TOPICAL (08:04)
== END 2023-06-16 11:25 | disposition intermediate care facility (04) | DRG 561 ==
PROVIDERS: Admitting Provider Family Medicine Geriatric Medicine; PCP Family Medicine Geriatric Medicine; Referring Provider Family Medicine Geriatric Medicine; Visit Provider Family Medicine Geriatric Medicine
DX: M48.56XD Collapsed vertebra, not elsewhere classified, lumbar region, subsequent encounter for fracture with routine healing (principal); E11.39 Type 2 diabetes mellitus with other diabetic ophthalmic complication; M06.9 Rheumatoid arthritis, unspecified; M54.15 Radiculopathy, thoracolumbar region; M54.16 Radiculopathy, lumbar region; E78.00 Pure hypercholesterolemia, unspecified; M48.061 Spinal stenosis, lumbar region without neurogenic claudication; E55.9 Vitamin D deficiency, unspecified; Z79.84 Long term (current) use of oral hypoglycemic drugs; H40.9 Unspecified glaucoma; Z79.899 Other long term (current) drug therapy; R55 Syncope and collapse
CPT/HCPCS: 36415; 71046; 80048; 82962; 83036; 85025; 87428; 87633; 87635; 94640; 94667; 94668; 97110; 97112; 97116; 97162; 97166; 97530; 97535; 97802; A4216

== ENCOUNTER → 2023-06-19 | Outpatient (REF) | payer MEDICARE, SELFPAY ==
[2023-06-19 08:43] LABS: Absolute Lymphocyte Count 0.99 X10^3/uL (0.83-4.51); Absolute Neutrophil Count 6.7 X10^3/uL (2.0-7.7); Basophil# 0.03 X10^3/uL; Basophil% 0.4 % (0-1); Eosinophil# 0.11 X10^3/uL; Eosinophils% 1.3 % (0-5); Hematocrit 37.4 % (37-47); Hemoglobin 11.4 g/dL (12.0-15.0); Lymphocyte # 0.99 X10^3/ul (0.83-4.51); Lymphocyte % 11.6 % (19-41); Mean Corp Hgb Conc 30.5 g/dL (32-36); Mean Corpuscular Hgb 31.2 pg (27.0-32.0); Mean Corpuscular Volume 102.5 fL (81-99); Monocyte# 0.65 X10^3/uL; Monocyte% 7.6 % (0-10); NRBC Flagged by Analyzer 0 % (0-5); Neutrophil # 6.74 X10^3/uL (2.7-7.7); Neutrophil % 78.7 % (47-70); POSITIVE COUNT YES; Platelet Count 774 K/mm3 (150-450); RBC Distribution Width CV 16.5 % (11.6-14.6); RBC Distribution Width SD 60.7 fl (35.1-43.9); Red Blood Count 3.65 M/mm3 (4.2-5.4); White Blood Count 8.6 K/mm3 (4.4-11.0)
[2023-06-19 09:03] LABS: Differential Indicated SCAN CRITERIA MET
[2023-06-19 09:34] LABS: Vitamin D,25 Hydroxy 85.6 ng/mL
[2023-06-19 09:40] LABS: Platelet Estimate MKD INC (ADEQ)
[2023-06-19 11:38] LABS: Hemoglobin A1c 7.9 % (3.8-5.6)
[2023-06-19 12:16] LABS: Pathologist Review Reviewed
== END ==
LOC: OLS.WHLEAS 05:00
PROVIDERS: PCP Family Medicine Geriatric Medicine; Visit Provider Internal Medicine
DX: E55.9 Vitamin D deficiency, unspecified (principal); E11.9 Type 2 diabetes mellitus without complications; E78.5 Hyperlipidemia, unspecified
CPT/HCPCS: 36415; 82306; 83036; 85025

== ENCOUNTER → 2023-06-20 | Outpatient (REF) | payer MEDICARE, SELFPAY ==
--- OUTSIDE RECORDS SUMMARY | 2023-06-20 05:13 | XMS RPT_ITS | CCD ---
Author Name Unknown Address [address] [place] [id number] Organization [facility] Care Team Providers Care Permanent Mold Supervisor Name Role Phone Jud Hernandez Unavailable Unavailable Jud Hernandez Unavailable Unavailable Allergies Allergy Classification Reported Allergen(s) Allergy Type Date of Onset Reaction(s) Facility (2 sources) alendronate drug allergy [facility] Work Phone: (2 sources) penicillin drug allergy [facility] Work Phone: Medications Completed/Discontinued Medications Medication Drug Class(es) Dates Sig (Normalized) Sig (Original) atorvastatin 40 mg oral tablet (2 sources) HMG-CoA Reductase Inhibitor Start: 10-22-2015 take 1 tablet by mouth once daily LIPITOR 40 MG TABS One tablet by mouth daily ATORVASTATIN CALCIUM [id number] Liliana Alcocer CAREER DEVELOPMENT COORDINATOR CALCIUM CARB-CHOLECALCIFEROL (1 source) Start: 10-22-2015 take 1 tablet by mouth once daily CALCIUM PLUS VITAMIN D3 600-800 MG-UNIT TABS One tablet by mouth daily CALCIUM CARB-CHOLECALCIFEROL [id number] Liliana Alcocer CAREER DEVELOPMENT COORDINATOR CALCIUM CARB-CHOLECALCIFEROL (1 source) Start: 10-22-2015 take 1 tablet by mouth once daily CALCIUM PLUS VITAMIN D3 600-800 MG-UNIT TABS One tablet by mouth daily CALCIUM CARB-CHOLECALCIFEROL [id number] Liliana Alcocer CAREER DEVELOPMENT COORDINATOR CALCIUM CARBONATE TABS (2 sources) take 1 tablet by mouth once daily CALTRATE 600 TABS One tablet by mouth daily CALCIUM CARBONATE TABS [id number] Juana Donovan LPN cholecalciferol 2000 unt oral capsule (2 sources) Vitamin D take 1 tablet by mouth once daily VITAMIN D3 2000 UNIT CAPS One tablet by mouth daily CHOLECALCIFEROL [id number] Juana Donovan LPN folic acid 1 mg oral tablet (2 sources) Start: 10-22-2015 take 2 tablets by mouth once daily FOLIC ACID 1 MG TABS Two tablets by mouth daily FOLIC ACID [id number] Liliana S Alcocer CAREER DEVELOPMENT COORDINATOR leucovorin 15 mg oral tablet (2 sources) Folate Analog Start: 10-22-2015 take 1 tablet by mouth every week LEUCOVORIN CALCIUM 15 MG TABS 1 tab po weekly LEUCOVORIN CALCIUM [id number] Liliana S Carlyn CAREER DEVELOPMENT COORDINATOR metFORMIN hydrochloride 500 mg oral tablet (2 sources) Biguanide Start: 10-22-2015 take 1 tablet by mouth once daily GLUCOPHAGE 500 MG TABS One tablet by mouth daily METFORMIN HCL [id number] Kylie Grimm methotrexate 2.5 mg oral tablet (6 sources) Folate Analog Metabolic Inhibitor Start: 10-22-2015 take 7 tablets by mouth every week METHOTREXATE 2.5 MG TABS 7 tabs PO weekly METHOTREXATE SODIUM [id number] Jud Hernandez Problems Active Problems Problem Classification Problem Date Documented Da te Episodic/Chronic Other lower respiratory disease (2 sources) Fibrosis of lung; Translations: [Pulmonary fibrosis, unspecified] Onset: 04-09-2014 04-09-2014 Chronic Past or Other Problems Problem Classification Problem Date Documented Da te Episodic/Chronic Nutritional deficiencies (2 sources) Deficiency of macronutrients; Translations: [Unspecified protein-calorie malnutrition] Onset: 04-09-2014 04-09-2014 Episodic Other lower respiratory disease (2 sources) Lung mass; Translations: [Solitary pulmonary nodule] Onset: 04-09-2014 04-09-2014 Episodic Other upper respiratory disease (2 sources) Hoarse; Translations: [Dysphonia] Onset: 10-22-2015 10-22-2015 Episodic Results Test Name Value Interpretation Reference Range Facil ity Vital Signs Date Time Vital Sign Value Performing Clinician Faci lity 01-26-2017 06:16-0400 BMI (Body Mass Index) 16.65 kg/m2 Jud Hernandez [facility] Work Phone: 01-26-2017 06:16-0400 Body Temperature 97.2 [degF] Jud Hernandez [facility] Phone: 01-26-2017 06:16-0400 BP Diastolic 75 mm[Hg] Jud David [facility] Work Phone: 01-26-2017 06:16-0400 BP Systolic 119 mm[Hg] Jud David [facility] Work Phone: 01-26-2017 06:16-0400 Height 160.02 cm Jud David [facility] Work Phone: 01-26-2017 06:16-0400 Pulse (Heart Rate) 81 /min Jud Hernandez [facility] Work Phone: 01-26-2017 06:16-0400 Respiratory Rate 18 /min Jud David [facility] Work Phone: 01-26-2017 06:16-0400 Weight 42.64 kg Jud David [facility] Work Phone: 01-28-2016 11:16-0400 Body Temperature 96.8 [degF] Jud David [facility] Work Phone: 01-28-2016 11:16-0400 BSA (Body Surface Area) 1.48 m2 Jud David [facility] Work Phone: 01-28-2016 11:16-0400 Height 160.02 cm Jud David [facility] Work Phone: 01-28-2016 11:16-0400 Weight 48.18 kg Jud David [facility] Work Phone: Procedures Date Procedure Procedure Detail Performing Clinician Start: 10-22-2015 End: 12-07-2015 Follow Up Appt 3 months Liliana simental CAREER DEVELOPMENT COORDINATOR Work Phone: Start: 10-22-2015 End: 12-07-2015 Pulmonary Function Test - complete Liliana Alcocer CAREER DEVELOPMENT COORDINATOR Work Phone: Plan of Treatment Date Care Activity Detail Author Start: 01-26-2017 End: 01-26-2017 Appointment Appointment [facility] Work Phone: Start: 01-28-2016 End: 01-28-2016 BWA BWA [facility] Phone: Start: 01-28-2016 End: 01-28-2016 Follow Up Appt 1 year Follow Up Appt 1 year [facility] Phone: Start: 10-22-2015 End: 12-07-2015 Follow Up Appt 3 months Follow Up Appt 3 months [facility] Phone: Start: 10-22-2015 End: 12-07-2015 Pulmonary Function Test - complete Pulmonary Function Test - complete [facility] Phone: Start: 03-12-2015 End: 04-09-2014 Ct thorax w/o dye CT Chest without contrast [facility] Phone: Start: 04-09-2014 End: 04-09-2014 *ANIBAL *ANIBAL [facility] Phone: Start: 04-09-2014 End: 04-09-2014 *ANCA *ANCA [facility] Phone: Start: 04-09-2014 End: 04-09-2014 Cyclic citrullinated peptide antibody *ANTICCP - CCP Antibody [facility] Phone: Start: 04-09-2014 End: 04-09-2014 Rheumatoid factor test *Rheumatoid Factor (qualiative) [facility] Phone: Additional Source Comments FOR RECORDS PERTAINING TO PATIENTS WHO ARE OR HAVE BEEN ENROLLED IN A CHEMICAL DEPENDENCY/SUBSTANCEABUSE PROGRAM, SOME INFORMATION MAY BE OMITTED. This clinical summary was aggregated from multiple sources. Caution should be exercised in using it in the provision of clinical care. This summary normalizes information from multiple sources, and as a consequence, information in this document may materially change the coding, format and clinical context of patient data. In addition, data may be omitted in some cases. CLINICAL DECISIONS SHOULD BE BASED ON THE PRIMARY CLINICAL RECORDS. [employer] [facility]. provides no warranty or guarantee of the accuracy or completeness of information in this document.
[2023-06-20 09:20] LABS: ALB/GLOB Ratio 0.5 RATIO (0.9-2.4); AST(SGOT) 12 U/L (15-37); Alanine Aminotransfer ALT/SGPT 12 U/L (13-56); Albumin, Serum 2.5 g/dL (3.2-5.0); Alkaline Phosphatase 70 U/L (45-117); Anion Gap 3 (5-15); BUN 11 mg/dL (7-18); BUN/Creat Ratio 16.2 RATIO (10-20); Calcium,Total 9.8 mg/dL (8.5-10.1); Chloride 106 mmol/L (98-107); Creatinine, Serum 0.68 mg/dL (0.55-1.02); EST Glomerular Filtration Rate 88 mL/min (>60); Est Glom Filt Rate - Afr Amer 107 mL/min (>60); Globulin 4.6 g/dL (2.2-4.2); Glucose 111 mg/dL (74-106); Potassium 3.9 mmol/L (3.5-5.1); Protein, Total 7.1 g/dL (6.4-8.2); Sodium Level 139 mmol/L (136-145)
== END ==
LOC: OLS.WHLEAS 05:00
PROVIDERS: PCP Family Medicine Geriatric Medicine; Visit Provider Internal Medicine
DX: E46 Unspecified protein-calorie malnutrition (principal); E11.9 Type 2 diabetes mellitus without complications
CPT/HCPCS: 80053

== ENCOUNTER 2023-06-26 10:40 | Day surgery (SDC) | payer MEDICARE, SELFPAY ==
--- OUTSIDE RECORDS SUMMARY | 2023-06-26 11:08 | XMS RPT_ITS | CCD ---
Author Name Unknown Address [address] [place] [id number] Organization [facility] Care Team Providers Care Advanced Manager Name Role Phone Jud Hernandez Unavailable Unavailable Jud Hernandez Unavailable Unavailable Allergies Allergy Classification Reported Allergen(s) Allergy Type Date of Onset Reaction(s) Facility (2 sources) alendronate drug allergy [facility] Work Phone: (2 sources) penicillin drug allergy [facility] Work Phone: Medications Completed/Discontinued Medications Medication Drug Class(es) Dates Sig (Normalized) Sig (Original) atorvastatin 40 mg oral tablet (2 sources) HMG-CoA Reductase Inhibitor Start: 10-22-2015 take 1 tablet by mouth once daily LIPITOR 40 MG TABS One tablet by mouth daily ATORVASTATIN CALCIUM [id number] Liliana Alcocer [employer] CALCIUM CARB-CHOLECALCIFEROL (1 source) Start: 10-22-2015 take 1 tablet by mouth once daily CALCIUM PLUS VITAMIN D3 600-800 MG-UNIT TABS One tablet by mouth daily CALCIUM CARB-CHOLECALCIFEROL [id number] Liliana Alcocer LA[employer] W[employer] CALCIUM CARB-CHOLECALCIFEROL (1 source) Start: 10-22-2015 take 1 tablet by mouth once daily CALCIUM PLUS VITAMIN D3 600-800 MG-UNIT TABS One tablet by mouth daily CALCIUM CARB-CHOLECALCIFEROL [id number] Liliana Alcocer LA[employer] W[employer] CALCIUM CARBONATE TABS (2 sources) take 1 tablet by mouth once daily CALTRATE 600 TABS One tablet by mouth daily CALCIUM CARBONATE TABS [id number] Juana Donovan LPN cholecalciferol 2000 unt oral capsule (2 sources) Vitamin D take 1 tablet by mouth once daily VITAMIN D3 2000 UNIT CAPS One tablet by mouth daily CHOLECALCIFEROL [id number] Juana Donovan LPN folic acid 1 mg oral tablet (2 sources) Start: 10-22-2015 take 2 tablets by mouth once daily FOLIC ACID 1 MG TABS Two tablets by mouth daily FOLIC ACID [id number] Liliana S Alcocer LAST W[employer]ER leucovorin 15 mg oral tablet (2 sources) Folate Analog Start: 10-22-2015 take 1 tablet by mouth every week LEUCOVORIN CALCIUM 15 MG TABS 1 tab po weekly LEUCOVORIN CALCIUM 18081877903 Liliana S Carlyn LA[employer] metFORMIN hydrochloride 500 mg oral tablet (2 sources) Biguanide Start: 10-22-2015 take 1 tablet by mouth once daily GLUCOPHAGE 500 MG TABS One tablet by mouth daily METFORMIN HCL 37822435943 Kylie Grimm methotrexate 2.5 mg oral tablet (6 sources) Folate Analog Metabolic Inhibitor Start: 10-22-2015 take 7 tablets by mouth every week METHOTREXATE 2.5 MG TABS 7 tabs PO weekly METHOTREXATE SODIUM 14984476631 Jud Hernandez Problems Active Problems Problem Classification [...] 16.65 kg/m2 Jud Hernandez [facility] Work Phone: 01-26-2017 06:16-0400 Body Temperature 97.2 [degF] Jud Hernandez [facility] Phone: 01-26-2017 06:16-0400 BP Diastolic 75 mm[Hg] Jud David [facility] Work Phone: 01-26-2017 06:16-0400 BP Systolic 119 mm[Hg] Jud David [facility] Work Phone: 01-26-2017 06:16-0400 Height 160.02 cm Jud David [facility] Work Phone: 01-26-2017 06:16-0400 Pulse (Heart Rate) 81 /min Jud Hernandez [facility] Work Phone: 01-26-2017 06:16-0400 Respiratory Rate 18 /min Jud David [facility] Work Phone: 01-26-2017 06:16-0400 Weight 42.64 kg Jud David [facility] Work Phone: 01-28-2016 11:16-0400 Body Temperature 96.8 [degF] Jud David [facility] Work Phone: 01-28-2016 11:16-0400 BSA (Body Surface Area) 1.48 m2 Jud David [facility] Work Phone: 01-28-2016 11:16-0400 Height 160.02 cm Jud David [facility] Work Phone: 01-28-2016 11:16-0400 Weight 48.18 kg Jud David [facility] Work Phone: Procedures Date Procedure Procedure Detail Performing Clinician Start: 10-22-2015 End: 12-07-2015 Follow Up Appt 3 months Liliana simental [employer] Work Phone: Start: 10-22-2015 End: 12-07-2015 Pulmonary Function Test - complete Liliana Alcocer [employer] Work Phone: Plan of Treatment Date Care Activity Detail Author Start: 01-26-2017 End: 01-26-2017 Appointment Appointment [facility] Work Phone: Start: 01-28-2016 End: 01-28-2016 BWA BWA [facility] Phone: Start: 01-28-2016 End: 01-28-2016 Follow Up Appt 1 year Follow Up Appt 1 year [facility] Phone: Start: 10-22-2015 End: 12-07-2015 Follow Up Appt 3 months Follow Up Appt 3 months [facility] Phone: Start: 10-22-2015 End: 12-07-2015 Pulmonary Function Test - complete Pulmonary Function Test - complete [facility] Phone: Start: 03-12-2015 End: 04-09-2014 Ct thorax w/o dye CT Chest without contrast [facility] Phone: Start: 04-09-2014 End: 04-09-2014 *ANIBAL *ANIBAL [facility] Phone: Start: 04-09-2014 End: 04-09-2014 *ANCA *ANCA [facility] Phone: Start: 04-09-2014 End: 04-09-2014 Cyclic citrullinated peptide antibody *ANTICCP - CCP Antibody [facility] Phone: Start: 04-09-2014 End: 04-09-2014 Rheumatoid factor test *Rheumatoid Factor (qualiative) [facility] Phone: Additional Source Comments FOR RECORDS PERTAINING [...] BE BASED ON THE PRIMARY CLINICAL RECORDS. [email or web address]. provides no warranty or guarantee of the accuracy or completeness of information in this document.
[2023-06-26 11:10] VITALS: BP 147/81; PULSE 73; RESP 18; TEMP 36.4; O2SAT 97; BMI 14.2
[2023-06-26] MEDS: Lactated Ringers 1,000 ML 15 ML IV (11:23)
[2023-06-26 11:49] LABS: Bedside Glucose 149 mg/dL (74-106)
--- NOTE | 2023-06-26 12:15 | RAD_ITS ---
PROCEDURE: Lumbar epidural. DATE OF EXAMINATION: June 26, 2023. INDICATION: Female, 83 years old. Back pain. FLUOROSCOPY TIME (if supplied): (21.9 seconds) minutes/seconds. 3.63 mGy. 4 images were obtained. RAD/Fluor Guidance for Spine Inj IMPRESSION: Intraoperative imaging provided for epidural block. Electronically Signed: Dae Fitzgerald MD at 15:39 EST ,
[2023-06-26] MEDS: Bupivacaine 0.25% 30 ML Vial (12:32)
[2023-06-26] MEDS: Triamcinolone Acetonide 40 MG/ML Vial (12:32)
[2023-06-26 12:45] VITALS: BP 147/81; BP 95/61; PULSE 99; RESP 16; TEMP 36.4; O2SAT 100
[2023-06-26 12:50] VITALS: BP 118/65; BP 147/81; PULSE 94; RESP 18; O2SAT 99
[2023-06-26 12:55] VITALS: BP 118/74; BP 147/81; PULSE 93; RESP 16; O2SAT 100
[2023-06-26 13:05] VITALS: BP 121/63; BP 147/81; PULSE 85; RESP 16; TEMP 36.4; O2SAT 100
--- NOTE | 2023-06-26 13:23 | PCM.OPRPT ---
Problems Associated Problem List Diagnoses (1) Spinal stenosis, lumbar region without neurogenic claudication: Report of Operation Date of Procedure: 06/26/23 Pre-Operative Diagnosis: Spinal stenosis, lumbar region without neurogenic claudication Post-Operative Diagnosis: Spinal stenosis, lumbar region without neurogenic claudication Surgery/Procedure Performed:: L1-L2 Epidural steroid injection Surgeon: Saturnino Green Type of Anesthesia: MAC and Topical Anesth Estimated Blood Loss (mL): 0 Description of Procedure: PROCEDURE TECHNIQUE: The patient was admitted to the preoperative area and time out performed. Vital signs were checked and the patient was moved to the procedure area and placed in the prone position. Standard monitors were applied. Sterile prep and draped performed in a regular manner. The L1-[id number] space was identified under fluoroscopic guidance. Local anesthesia was administered using Lidocaine 0.5%, to anesthetize the skin and subcutaneous tissue with 25G needle. Next a 21G Touhy needle was inserted under fluoroscopic guidance. Using the loss of resistance technique, the epidural space was identified. Needle position was confirmed on an AP and lateral views as required. Contrast material, Omnipaque 1cc, was injected under fluoroscopic guidance and showed appropriate epidurogram after initial spread appeared to be possibly intrathecal vs epidural. So the needle was retracted and repositioned with LOS to normal saline with subsequent contrast injection of 2ml showing appropriate epidural spread. Negative Blood and CSF aspiration was confirmed. A mixture of 5 cc Bupivicaine 0.25% and 40 mg of kenalog was injected. The patient tolerated the procedure well. The needle was removed intact. The patient was cleansed and a Band-Aid was placed. DISCHARGE INSTRUCTIONS: The patient was taken to the Recovery Room and discharged when discharge criteria were met in the Recovery Room. The patient was given both written and verbal postoperative discharge instructions. The patient was advised to call the [facility] or to report to the Emergency Room with any symptoms of infection, bleeding, shortness of breath, progressive weakness or any question related to the procedure. The patient stated understanding and agreement with all discharge instructions. She will follow up with Dr. Price after discharge from nursing facility (anticipated to be discharged week july).
[2023-06-26 13:34] VITALS: BP 147/81
== END 2023-06-26 13:52 | disposition home or self-care (01) ==
LOC: SDC 10:42 → AC 10:45
PROVIDERS: PCP Family Medicine Geriatric Medicine; Referring Provider Anesthesiology; Visit Provider Anesthesiology
PROC: 3E0S3BZ Introduction of Anesthetic Agent into Epidural Space, Percutaneous Approach (ICD-10-PCS; CPT 62322; principal; 2023-06-26 12:10)
DX: M48.061 Spinal stenosis, lumbar region without neurogenic claudication (principal); M48.56XA Collapsed vertebra, not elsewhere classified, lumbar region, initial encounter for fracture; M06.9 Rheumatoid arthritis, unspecified; E11.9 Type 2 diabetes mellitus without complications; M54.16 Radiculopathy, lumbar region; E78.00 Pure hypercholesterolemia, unspecified; I10 Essential (primary) hypertension; D50.9 Iron deficiency anemia, unspecified; Z79.899 Other long term (current) drug therapy
CPT/HCPCS: 62323; 01992; 64483; 77003; 82962; J7120

== ENCOUNTER → 2023-07-10 | Outpatient (REF) | payer MEDICARE, SELFPAY ==
--- OUTSIDE RECORDS SUMMARY | 2023-07-10 05:36 | XMS RPT_ITS | CCD ---
Author Name Unknown Address [address] [place] [id number] Organization [facility] Care Team Providers Care Log Handler Name Role Phone Jud Hernandez Unavailable Unavailable Jud Hernandez Unavailable Unavailable Allergies Allergy Classification Reported Allergen(s) Allergy Type Date of Onset Reaction(s) Facility (2 sources) alendronate drug allergy [facility] Work Phone: (2 sources) penicillin drug allergy [facility] Work Phone: Medications Completed/Discontinued Medications Medication Drug Class(es) Dates Sig (Normalized) Sig (Original) atorvastatin 40 mg oral tablet (2 sources) HMG-CoA Reductase Inhibitor Start: 10-22-2015 take 1 tablet by mouth once daily LIPITOR 40 MG TABS One tablet by mouth daily ATORVASTATIN CALCIUM [id number] Liliana Alcocer [employer] CALCIUM CARB-CHOLECALCIFEROL (1 source) Start: 10-22-2015 take 1 tablet by mouth once daily CALCIUM PLUS VITAMIN D3 600-800 MG-UNIT TABS One tablet by mouth daily CALCIUM CARB-CHOLECALCIFEROL 62510090143 Liliana Alcocer [employer] CALCIUM CARB-CHOLECALCIFEROL (1 source) Start: 10-22-2015 take 1 tablet by mouth once daily CALCIUM PLUS VITAMIN D3 600-800 MG-UNIT TABS One tablet by mouth daily CALCIUM CARB-CHOLECALCIFEROL 88553524512 Liliana Alcocer [employer] CALCIUM CARBONATE TABS (2 sources) take 1 tablet by mouth once daily CALTRATE 600 TABS One tablet by mouth daily CALCIUM CARBONATE TABS [id number] Juaan Donovan LPN cholecalciferol 2000 unt oral capsule (2 sources) Vitamin D take 1 tablet by mouth once daily VITAMIN D3 2000 UNIT CAPS One tablet by mouth daily CHOLECALCIFEROL 14520522329 Juana Donovan LPN folic acid 1 mg oral tablet (2 sources) Start: 10-22-2015 take 2 tablets by mouth once daily FOLIC ACID 1 MG TABS Two tablets by mouth daily FOLIC ACID [id number] Liliana S Alcocer [employer] leucovorin 15 mg oral tablet (2 sources) Folate Analog Start: 10-22-2015 take 1 tablet by mouth every week LEUCOVORIN CALCIUM 15 MG TABS 1 tab po weekly LEUCOVORIN CALCIUM 10535508262 Liliana S Carlyn [employer] metFORMIN hydrochloride 500 mg oral tablet (2 sources) Biguanide Start: 10-22-2015 take 1 tablet by mouth once daily GLUCOPHAGE 500 MG TABS One tablet by mouth daily METFORMIN HCL 88514426402 Kylie Grimm methotrexate 2.5 mg oral tablet (6 sources) Folate Analog Metabolic Inhibitor Start: 10-22-2015 take 7 tablets by mouth every week METHOTREXATE 2.5 MG TABS 7 tabs PO weekly METHOTREXATE SODIUM 80995206393 Jud Hernandez Problems Active Problems Problem Classification [...] 16.65 kg/m2 Jud Hernandez [facility] Work Phone: 01-26-2017 06:16-0400 Body Temperature 97.2 [degF] Jud Hernandez [facility] Phone: 01-26-2017 06:16-0400 BP Diastolic 75 mm[Hg] Jud David [facility] Work Phone: 01-26-2017 06:16-0400 BP Systolic 119 mm[Hg] Jud David [facility] Work Phone: 01-26-2017 06:16-0400 Height 160.02 cm Jud David [facility] Work Phone: 01-26-2017 06:16-0400 Pulse (Heart Rate) 81 /min Jud Hernandez [facility] Work Phone: 01-26-2017 06:16-0400 Respiratory Rate 18 /min Jud David [facility] Work Phone: 01-26-2017 06:16-0400 Weight 42.64 kg Jud David [facility] Work Phone: 01-28-2016 11:16-0400 Body Temperature 96.8 [degF] Jud David [facility] Work Phone: 01-28-2016 11:16-0400 BSA (Body Surface Area) 1.48 m2 Jud David [facility] Work Phone: 01-28-2016 11:16-0400 Height 160.02 cm Jud David [facility] Work Phone: 01-28-2016 11:16-0400 Weight 48.18 kg Jud David [facility] Work Phone: Procedures Date Procedure Procedure Detail Performing Clinician Start: 10-22-2015 End: 12-07-2015 Follow Up Appt 3 months Liliana simental [employer] Work Phone: Start: 10-22-2015 End: 12-07-2015 Pulmonary Function Test - complete Liliana Alcocer [employer] Work Phone: Plan of Treatment Date Care Activity Detail Author Start: 01-26-2017 End: 01-26-2017 Appointment Appointment [facility] Work Phone: Start: 01-28-2016 End: 01-28-2016 BWA BWA [facility] Phone: Start: 01-28-2016 End: 01-28-2016 Follow Up Appt 1 year Follow Up Appt 1 year [facility] Phone: Start: 10-22-2015 End: 12-07-2015 Follow Up Appt 3 months Follow Up Appt 3 months [facility] Phone: Start: 10-22-2015 End: 12-07-2015 Pulmonary Function Test - complete Pulmonary Function Test - complete [facility] Phone: Start: 03-12-2015 End: 04-09-2014 Ct thorax w/o dye CT Chest without contrast [facility] Phone: Start: 04-09-2014 End: 04-09-2014 *ANIBAL *ANIBAL [facility] Phone: Start: 04-09-2014 End: 04-09-2014 *ANCA *ANCA [facility] Phone: Start: 04-09-2014 End: 04-09-2014 Cyclic citrullinated peptide antibody *ANTICCP - CCP Antibody [facility] Phone: Start: 04-09-2014 End: 04-09-2014 Rheumatoid factor test *Rheumatoid Factor (qualiative) [facility] Phone: Additional Source Comments FOR RECORDS PERTAINING [...] BE BASED ON THE PRIMARY CLINICAL RECORDS. [employer]. provides no warranty or guarantee of the accuracy or completeness of information in this document.
[2023-07-10 08:22] LABS: Absolute Lymphocyte Count 1.62 X10^3/uL (0.83-4.51); Absolute Neutrophil Count 6.9 X10^3/uL (2.0-7.7); Basophil# 0.04 X10^3/uL; Basophil% 0.4 % (0-1); Eosinophil# 0.18 X10^3/uL; Eosinophils% 1.9 % (0-5); Hematocrit 35.6 % (37-47); Hemoglobin 10.8 g/dL (12.0-15.0); Lymphocyte # 1.62 X10^3/ul (0.83-4.51); Lymphocyte % 17.1 % (19-41); Mean Corp Hgb Conc 30.3 g/dL (32-36); Mean Corpuscular Volume 105.6 fL (81-99); Mean Platelet Vol. 8.5 fl (6.2-12.0); Monocyte# 0.67 X10^3/uL; Monocyte% 7.1 % (0-10); NRBC Flagged by Analyzer 0 % (0-5); Neutrophil # 6.94 X10^3/uL (2.7-7.7); Neutrophil % 73.2 % (47-70); POSITIVE MORPHOLOGY YES; Platelet Count 412 K/mm3 (150-450); RBC Distribution Width CV 17.7 % (11.6-14.6); RBC Distribution Width SD 68.1 fl (35.1-43.9); Red Blood Count 3.37 M/mm3 (4.2-5.4); White Blood Count 9.5 K/mm3 (4.4-11.0)
[2023-07-10 08:43] LABS: Differential Indicated SCAN CRITERIA MET
[2023-07-10 08:45] LABS: ALB/GLOB Ratio 0.6 RATIO (0.9-2.4); AST(SGOT) 15 U/L (15-37); Alanine Aminotransfer ALT/SGPT 14 U/L (13-56); Albumin, Serum 2.7 g/dL (3.2-5.0); Alkaline Phosphatase 75 U/L (45-117); Anion Gap 3 (5-15); BUN 11 mg/dL (7-18); BUN/Creat Ratio 18.1 RATIO (10-20); Calcium,Total 9.6 mg/dL (8.5-10.1); Chloride 108 mmol/L (98-107); Creatinine, Serum 0.61 mg/dL (0.55-1.02); EST Glomerular Filtration Rate 100 mL/min (>60); Est Glom Filt Rate - Afr Amer 121 mL/min (>60); Globulin 4.2 g/dL (2.2-4.2); Glucose 140 mg/dL (74-106); Potassium 3.9 mmol/L (3.5-5.1); Protein, Total 6.9 g/dL (6.4-8.2); Sodium Level 139 mmol/L (136-145)
[2023-07-10 08:50] LABS: Anisocytosis 1+
== END ==
LOC: OLS.WHLEAS 04:00
PROVIDERS: PCP Family Medicine Geriatric Medicine; Referring Provider Internal Medicine; Visit Provider Internal Medicine
DX: E46 Unspecified protein-calorie malnutrition (principal); E11.9 Type 2 diabetes mellitus without complications; E78.5 Hyperlipidemia, unspecified
CPT/HCPCS: 36415; 80053; 85025

== ENCOUNTER → 2023-08-28 | Outpatient (CLI) | payer MEDICARE, SELFPAY ==
[2023-08-28 15:34] LABS: Absolute Lymphocyte Count 1.24 X10^3/uL (0.83-4.51); Absolute Neutrophil Count 4.1 X10^3/uL (2.0-7.7); Basophil# 0.03 X10^3/uL; Basophil% 0.5 % (0-1); Eosinophil# 0.12 X10^3/uL; Hematocrit 37.4 % (37-47); Hemoglobin 11.6 g/dL (12.0-15.0); Lymphocyte # 1.24 X10^3/ul (0.83-4.51); Lymphocyte % 20.6 % (19-41); Mean Corpuscular Hgb 31.7 pg (27.0-32.0); Mean Corpuscular Volume 102.2 fL (81-99); Mean Platelet Vol. 8.7 fl (6.2-12.0); Monocyte# 0.54 X10^3/uL; NRBC Flagged by Analyzer 0 % (0-5); Neutrophil # 4.06 X10^3/uL (2.7-7.7); Neutrophil % 67.4 % (47-70); Platelet Count 434 K/mm3 (150-450); RBC Distribution Width CV 14.1 % (11.6-14.6); RBC Distribution Width SD 52.9 fl (35.1-43.9); Red Blood Count 3.66 M/mm3 (4.2-5.4)
[2023-08-28 16:57] LABS: ALB/GLOB Ratio 0.8 RATIO (0.9-2.4); AST(SGOT) 15 U/L (15-37); Alanine Aminotransfer ALT/SGPT 13 U/L (13-56); Albumin, Serum 3.3 g/dL (3.2-5.0); Alkaline Phosphatase 69 U/L (45-117); Anion Gap 6 (5-15); BUN 17 mg/dL (7-18); BUN/Creat Ratio 19.5 RATIO (10-20); Calcium,Total 9.8 mg/dL (8.5-10.1); Chloride 102 mmol/L (98-107); Creatinine, Serum 0.87 mg/dL (0.55-1.02); EST Glomerular Filtration Rate 66 mL/min (>60); Est Glom Filt Rate - Afr Amer 80 mL/min (>60); Globulin 4.4 g/dL (2.2-4.2); Glucose 314 mg/dL (74-106); Potassium 4.2 mmol/L (3.5-5.1); Protein, Total 7.7 g/dL (6.4-8.2); Sodium Level 137 mmol/L (136-145); Thyroid Stim Hormone (TSH) 4.92 uIU/mL (0.358-3.74)
--- OUTSIDE RECORDS SUMMARY | 2023-08-28 21:48 | XMS RPT_ITS | CCD ---
Author Name Unknown Address [address] [place] [address] Organization [facility] Care Team Providers Care Drafter Electromechanical Name Role Phone Jud Hernandez Unavailable Unavailable Jud Hernandez Unavailable Unavailable Allergies Allergy Classification Reported Allergen(s) Allergy Type Date of Onset Reaction(s) Facility (2 sources) alendronate drug allergy [facility] Work Phone: (2 sources) penicillin drug allergy [facility] Work Phone: Medications Completed/Discontinued Medications Medication Drug Class(es) Dates Sig (Normalized) Sig (Original) atorvastatin 40 mg oral tablet (2 sources) HMG-CoA Reductase Inhibitor Start: 10-22-2015 take 1 tablet by mouth once daily LIPITOR 40 MG TABS One tablet by mouth daily ATORVASTATIN CALCIUM 19583199929 Liliana Alcocer [employer] CALCIUM CARB-CHOLECALCIFEROL (1 source) Start: 10-22-2015 take 1 tablet by mouth once daily CALCIUM PLUS VITAMIN D3 600-800 MG-UNIT TABS One tablet by mouth daily CALCIUM CARB-CHOLECALCIFEROL 53652254078 Liliana Alcocer [employer] CALCIUM CARB-CHOLECALCIFEROL (1 source) Start: 10-22-2015 take 1 tablet by mouth once daily CALCIUM PLUS VITAMIN D3 600-800 MG-UNIT TABS One tablet by mouth daily CALCIUM CARB-CHOLECALCIFEROL 08466789549 Liliana Alcocer [employer] CALCIUM CARBONATE TABS (2 sources) take 1 tablet by mouth once daily CALTRATE 600 TABS One tablet by mouth daily CALCIUM CARBONATE TABS 75518172965 Juana Donovan LPN cholecalciferol 2000 unt oral capsule (2 sources) Vitamin D take 1 tablet by mouth once daily VITAMIN D3 2000 UNIT CAPS One tablet by mouth daily CHOLECALCIFEROL 54357151817 Juana Donovan LPN folic acid 1 mg oral tablet (2 sources) Start: 10-22-2015 take 2 tablets by mouth once daily FOLIC ACID 1 MG TABS Two tablets by mouth daily FOLIC ACID 07743551900 Liliana S Alcocer [employer] leucovorin 15 mg oral tablet (2 sources) Folate Analog Start: 10-22-2015 take 1 tablet by mouth every week LEUCOVORIN CALCIUM 15 MG TABS 1 tab po weekly LEUCOVORIN CALCIUM 17519083323 Liliana S Carlyn [employer] metFORMIN hydrochloride 500 mg oral tablet (2 sources) Biguanide Start: 10-22-2015 take 1 tablet by mouth once daily GLUCOPHAGE 500 MG TABS One tablet by mouth daily METFORMIN HCL 42289586304 Kylie Grimm methotrexate 2.5 mg oral tablet (6 sources) Folate Analog Metabolic Inhibitor Start: 10-22-2015 take 7 tablets by mouth every week METHOTREXATE 2.5 MG TABS 7 tabs PO weekly METHOTREXATE SODIUM 90843410994 Jud Hernandez Problems Active Problems Problem Classification [...] 16.65 kg/m2 Jud Hernandez [facility] Work Phone: 01-26-2017 06:16-0400 Body Temperature 97.2 [degF] Jud Hernandez [facility] Phone: 01-26-2017 06:16-0400 BP Diastolic 75 mm[Hg] Jud David [facility] Work Phone: 01-26-2017 06:16-0400 BP Systolic 119 mm[Hg] Jud David [facility] Work Phone: 01-26-2017 06:16-0400 Height 160.02 cm Jud David [facility] Work Phone: 01-26-2017 06:16-0400 Pulse (Heart Rate) 81 /min Jud Hernandez [facility] Work Phone: 01-26-2017 06:16-0400 Respiratory Rate 18 /min Jud David [facility] Work Phone: 01-26-2017 06:16-0400 Weight 42.64 kg Jud David [facility] Work Phone: 01-28-2016 11:16-0400 Body Temperature 96.8 [degF] Jud David [facility] Work Phone: 01-28-2016 11:16-0400 BSA (Body Surface Area) 1.48 m2 Jud David [facility] Work Phone: 01-28-2016 11:16-0400 Height 160.02 cm Jud David [facility] Work Phone: 01-28-2016 11:16-0400 Weight 48.18 kg Jud David [facility] Work Phone: Procedures Date Procedure Procedure Detail Performing Clinician Start: 10-22-2015 End: 12-07-2015 Follow Up Appt 3 months Liliana simental [employer] Work Phone: Start: 10-22-2015 End: 12-07-2015 Pulmonary Function Test - complete Liliana Alcocer [employer] Work Phone: Plan of Treatment Date Care Activity Detail Author Start: 01-26-2017 End: 01-26-2017 Appointment Appointment [facility] Work Phone: Start: 01-28-2016 End: 01-28-2016 BWA BWA [facility] Phone: Start: 01-28-2016 End: 01-28-2016 Follow Up Appt 1 year Follow Up Appt 1 year [facility] Phone: Start: 10-22-2015 End: 12-07-2015 Follow Up Appt 3 months Follow Up Appt 3 months [facility] Phone: Start: 10-22-2015 End: 12-07-2015 Pulmonary Function Test - complete Pulmonary Function Test - complete [facility] Phone: Start: 03-12-2015 End: 04-09-2014 Ct thorax w/o dye CT Chest without contrast [facility] Phone: Start: 04-09-2014 End: 04-09-2014 *ANIBAL *ANIBAL [facility] Phone: Start: 04-09-2014 End: 04-09-2014 *ANCA *ANCA [facility] Phone: Start: 04-09-2014 End: 04-09-2014 Cyclic citrullinated peptide antibody *ANTICCP - CCP Antibody [facility] Phone: Start: 04-09-2014 End: 04-09-2014 Rheumatoid factor test *Rheumatoid Factor (qualiative) [facility] Phone: Additional Source Comments FOR RECORDS PERTAINING [...] BE BASED ON THE PRIMARY CLINICAL RECORDS. [employer] [facility]. provides no warranty or guarantee of the accuracy or completeness of information in this document.
== END | disposition home or self-care (01) ==
PROVIDERS: PCP Family Medicine Geriatric Medicine; Visit Provider Family Medicine Geriatric Medicine
DX: E11.65 Type 2 diabetes mellitus with hyperglycemia (principal); E55.9 Vitamin D deficiency, unspecified; I10 Essential (primary) hypertension
CPT/HCPCS: 36415; 80053; 82306; 84443; 85025

== ENCOUNTER → 2023-09-12 | Outpatient (CLI) | payer MEDICARE, SELFPAY ==
--- NOTE | 2023-09-12 12:42 | BD_ITS ---
STUDY: DUAL ENERGY X-RAY ABSORPTIOMETRY / DXA REASON FOR EXAM: Female, 83 years old. Z780 TECHNIQUE: Bone Mineral Density (BMD) measurements of lumbar spine and right hip were obtained. COMPARISON: None. FINDINGS: Lumbar Spine (L1-L4): g/cm2 (0.716) / T-score (-2.9) / Z-score (-0.1) Findings are suggestive of osteoporosis with a high fracture risk. Right Femur Total: g/cm2 (0.474) / T-score (-3.8) / Z-score (-1.6) Right Femoral Neck: g/cm2 (0.374) / T-score (-4.3) / Z-score (-1.8) BD/Dexa Bone Density Study IMPRESSION: The patient is considered osteoporotic as outlined below according to World Jaison Organization (WHO) criteria with a high fracture risk. Reference Information: The T-score is the number of standard deviations above or below the standard which is normal for young adults at their peak bone mineral density. The World Health Organization (WHO) interprets the T-scores as follows: Above -1 Normal bone density Between -1 and -2.5 Osteopenia Equal to / or below -2.5 Osteoporosis As a practical clinical guideline, osteopenia may be graded as follows: Mild -1 through -1.5 Moderate -1.6 through -2.0 Severe -2.1 through -2.4 The Z-score is the number of standard deviations above or below age-matched controls. A Z-score of less than -1.5 would be considered abnormal. References: 1. NIH Osteoporosis and Related Bone Diseases www osteo.org 2. International Society for Clinical Densitometry www iscd.org 3. National Osteoporosis Foundation www nof.org Electronically Signed: Dae Fitzgerald MD at 9:43 EDT ,
== END | disposition home or self-care (01) ==
PROVIDERS: PCP Family Medicine Geriatric Medicine; Referring Provider Family Medicine Geriatric Medicine; Visit Provider Family Medicine Geriatric Medicine
DX: Z78.0 Asymptomatic menopausal state (principal)
CPT/HCPCS: 77080

== ENCOUNTER → 2023-10-10 | Outpatient (CLI) | payer MEDICARE, SELFPAY ==
[2023-10-10 13:33] LABS: Thyroid Stim Hormone (TSH) 2.41 uIU/mL (0.358-3.74)
== END | disposition home or self-care (01) ==
LOC: POLAB3 10:55
PROVIDERS: PCP Family Medicine Geriatric Medicine; Visit Provider Family Medicine Geriatric Medicine
DX: E03.9 Hypothyroidism, unspecified (principal)
CPT/HCPCS: 36415; 84443

== ENCOUNTER → 2023-10-23 | Outpatient (CLI) | payer MEDICARE, SELFPAY ==
--- NOTE | 2023-10-23 10:50 | RAD_ITS ---
INDICATION: SHOULDER PAIN EXAMINATION/TECHNIQUE: X-RAY - RIGHT XR Shoulder Min 2 Views 2 VIEWS COMPARISON: No relevant prior comparison study available FINDINGS: SOFT TISSUES: No soft tissue swelling or gas. No radiopaque foreign body. BONES/JOINTS: No acute fracture or subluxation.. Normal alignment. Preservation of the joint space.. No sclerotic or destructive changes observed. RAD/Shoulder min 2 Views IMPRESSION: No evidence of acute fracture or dislocation. Electronically Signed: Ruslan Cabrera MD at 14:29 EDT ,
--- NOTE | 2023-10-23 10:50 | RAD_ITS ---
INDICATION: SHOULDER PAIN EXAMINATION/TECHNIQUE: X-RAY - LEFT XR Shoulder Min 2 Views 2 VIEWS COMPARISON: No relevant prior comparison study available FINDINGS: SOFT TISSUES: No soft tissue swelling or gas. No radiopaque foreign body. BONES/JOINTS: No evidence of acute fracture or dislocation. Mild sclerosis of the greater tuberosity. Preservation of the joint space.. No sclerotic or destructive changes observed. RAD/Shoulder min 2 Views IMPRESSION: Mild degenerative changes. Electronically Signed: Ruslan Cabrera MD at 14:28 EDT ,
== END | disposition home or self-care (01) ==
LOC: RAD 10:48
PROVIDERS: PCP Family Medicine Geriatric Medicine; Referring Provider Anesthesiology Pain Medicine; Visit Provider Anesthesiology Pain Medicine
DX: M19.011 Primary osteoarthritis, right shoulder (principal); M19.012 Primary osteoarthritis, left shoulder
CPT/HCPCS: 73030

== ENCOUNTER 2023-12-07 18:23 | Observation (INO) | payer MEDICARE, SELFPAY ==
[2023-12-07] VITALS (8 sets, daily range): BP systolic 110–161; BP diastolic 55–97; PULSE 93–110; RESP 14–20; TEMP 36.3–38.6; O2SAT 96–99; BMI 16.6; BMI 14.0
--- NOTE | 2023-12-07 18:51 | EX.ED.DYSGE1 ---
HPI <JUAN Gerard - Last Filed: 12/07/23 20:35> History of Present Illness Chief Complaint: Weakness Narrative Narrative: Patient is an 83-year-old female with history of arthritis, chronic back pain who lives alone who presents to the emergency department for worsening weakness. The daughter does come over and help the patient with certain things. Today, the patient was not acting herself, the patient could barely get up off the chair. They did notice the patient felt hot. The patient was more confused today. The patient states he just generally does not feel well. PFSH <JUAN Gerard - Last Filed: 12/07/23 20:35> [facility] Medical History [facility] assisted resident Loss of hearing Wears glasses Wears dentures Post-menopausal Cancer Forgetfulness Anxiety Open wound Pain Walker as ambulation aid Bladder disease Injury of back Syncope FTT (failure to thrive) in adult History of diverticulitis Chronic constipation Non-smoker History of pain when walking History of echocardiogram Hypertension Iron deficiency anemia Osteoarthritis Rheumatoid arthritis High cholesterol Diabetes Home Medications ?Medication ?Instructions ?Recorded ?Last Taken ?Type cholecalciferol (vitamin D3) 25 2,000 unit PO DAILY SUPPLEMENT 07/25/14 05/31/23 History mcg (1,000 unit) tablet (Vitamin D3) baclofen 10 mg tablet 10 mg PO QHS MUSCLE SPASMS 05/25/23 05/30/23 History acetaminophen 500 mg tablet 1,000 mg PO BID 12/07/23 Unknown History levothyroxine 25 mcg tablet 25 mcg PO DAILY 12/07/23 Unknown History Allergy/AdvReac Type Severity Reaction Status Date / Time alendronate sodium (From Allergy Anaphylaxis Verified 12/07/23 18:26 Fosamax) Penicillins Allergy Swelling Verified 12/07/23 18:26 Family History Mother Alzheimer disease Father Myocardial infarction Hypertension Heart disease CAD (coronary artery disease) Surgical History Hx of colonoscopy History of surgery on arm S/P ORIF (open reduction internal fixation) fracture Social History household members: none Smoking Status: Never smoker alcohol intake: never substance use type: does not use ROS <JUAN Gerard - Last Filed: 12/07/23 20:35> ROS ED ROS Narrative Constitutional: Negative for weight loss. Positive for weakness, fever and chills Eyes: Negative for vision loss, vision change, double vision ENT: Negative for any sore throat, ear pain, congestion Cardiovascular: Negative for any chest pain, tightness, palpitations Respiratory: Negative for any sputum production, hemoptysis, dyspnea, dyspnea on exertion, orthopnea. Positive for cough Gastrointestinal: Negative for any abdominal pain, nausea, vomiting, diarrhea, constipation, blood in stool, blood in vomit : Negative for any urinary frequency, dysuria, retention, blood in urine Muscle skeletal: Negative for any neck pain, back pain Neurological: Negative for any headache, syncope, dizziness Skin: Negative for any rashes, itching, abrasions, lacerations Psychiatric: Negative for any depression, anxiety, stress, suicidal ideation, homicidal ideation Hematologic: Negative for any excessive bruising, easy bleeding EXAM <JUAN Gerard - Last Filed: 12/07/23 20:35> Physical Exam Narrative Exam Narrative: Vital signs reviewed. Patient did have a fever on my initial exam of 101.8., Patient slightly tachycardic. Patient is alert and orient x 4 however does appear to be slightly worn out and does not feel well. HEET: Head normocephalic atraumatic, TMs clear bilaterally. Posterior pharynx is clear, dry mucous membranes. Nares clear bilaterally. Neck: Supple with no lymphadenopathy or tenderness. No signs of meningismus. Cardiac: Regular rate and rhythm no murmurs gallops or rubs, equal peripheral pulses bilaterally. Respiratory: Lungs clear to auscultation bilaterally. Lung sounds diminished in the bases. No chest tenderness. Abdomen: Soft, nontender, nondistended. No abdominal bruit or pulsatile masses. No hepatosplenomegaly Extremities: No peripheral edema, no signs of gross trauma or deformity. Active full range of motion of all extremities. Neuro: Cranial nerves II through XII intact, no focal neurological deficits. Skin: Clean dry and intact with no rash, purpura, petechiae, vesicles or pustules. Backs/flank: No CVA tenderness, no midline spinal tenderness, no deformity. Psych: Normal mood and affect. No SI, HI or acute psychosis. Const Vital Signs: 12/07/23 18:24 12/07/23 18:36 12/07/23 18:38 Temperature 97.4 F L 101.5 F H Temperature Source Temporal Oral Pulse Rate 110 H 103 H Respiratory Rate 17 16 Respiratory Effort Normal Non-Labored Respiratory Pattern Normal Blood Pressure 161/97 H 158/81 H Blood Pressure Mean 118 106 Pulse Ox 97 96 Oxygen Delivery Method Room Air Room Air 12/07/23 18:45 12/07/23 19:31 12/07/23 20:00 Temperature 98.4 F 98.8 F Temperature Source Oral Oral Pulse Rate 100 98 Respiratory Rate 20 H 14 Respiratory Effort Respiratory Pattern Blood Pressure 125/56 H 121/58 H Blood Pressure Mean 79 79 Pulse Ox 98 97 96 Oxygen Delivery Method Room Air Room Air Room Air <Dr. Andrea Lackey, DO - Last Filed: 12/07/23 21:36> Physical Exam Const Vital Signs: 12/07/23 18:24 12/07/23 18:36 12/07/23 18:38 Temperature 97.4 F L 101.5 F H Temperature Source Temporal Oral Pulse Rate 110 H 103 H Respiratory Rate 17 16 Respiratory Effort Normal Non-Labored Respiratory Pattern Normal Blood Pressure 161/97 H 158/81 H Blood Pressure Mean 118 106 Pulse Ox 97 96 Oxygen Delivery Method Room Air Room Air 12/07/23 18:45 12/07/23 19:31 12/07/23 20:00 Temperature 98.4 F 98.8 F Temperature Source Oral Oral Pulse Rate 100 98 Respiratory Rate 20 H 14 Respiratory Effort Respiratory Pattern Blood Pressure 125/56 H 121/58 H Blood Pressure Mean 79 79 Pulse Ox 98 97 96 Oxygen Delivery Method Room Air Room Air Room Air Sepsis Attestation <JUAN Gerard - Last Filed: 12/07/23 20:35> Fluid Resuscitation Fluid Resuscitation ordered: Lesser volume fluid bolus ordered (secondary to small body habitus ) Amount of fluid ordered: 1,000 Reason for lesser fluid bolus:: BP Responded to a lesser volume MDM <JUAN Gerard - Last Filed: 12/07/23 20:35> MDM Lab Data Labs: Laboratory Results - last 24 hr 12/07/23 12/07/23 18:53 19:30 WBC 8.6 RBC 3.58 L Hgb 11.2 L Hct 34.6 L MCV 96.6 MCH 31.3 MCHC 32.4 RDW Std Deviation 52.4 H RDW Coeff of Ed 14.8 H Plt Count 293 MPV 8.6 Immature Gran % (Auto) 0.600 Neut % (Auto) 86.9 H Lymph % (Auto) 6.1 L [place] % (Auto) 5.2 Eos % (Auto) 0.7 Baso % (Auto) 0.5 Absolute Neuts (auto) 7.5 Absolute Lymphs (auto) 0.52 L Nucleated RBC % 0 PT 13.8 INR 1.1 APTT 28.8 Sodium 130 L Potassium 3.9 Chloride 97 L Carbon Dioxide 28.0 Anion Gap 5 BUN 12 Creatinine 0.82 Estim Creat Clear Calc 31.49 Est GFR (MDRD) Af Amer 85 Est GFR (MDRD) Non-Af 70 BUN/Creatinine Ratio 14.6 Glucose 282 H Lactic Acid 1.6 Calcium 9.4 Total Bilirubin 0.40 AST 13 L ALT 14 Alkaline Phosphatase 99 Total Protein 7.6 Albumin 3.2 Globulin 4.4 H Albumin/Globulin Ratio 0.7 L Urine Color Yellow Urine Clarity Clear Urine pH 6.5 Ur Specific Ira 1.025 Urine Protein 30 H Urine Glucose (UA) 1000 H Urine Ketones Negative Urine Occult Blood 50 H Urine Nitrite Negative Urine Bilirubin Negative Urine Urobilinogen Normal Ur Leukocyte Esterase Negative Urine RBC 0-5 SEEN Urine WBC 0 SEEN Ur Squamous Epith Cells 0 SEEN Urine Bacteria 0 SEEN Urine Mucus 0 SEEN Radiography Diagnostic Testing: Clinical Impression(s) from Imaging Studies Chest X-Ray 12/07/23 19:30 IMPRESSION: Probable residual chronic interstitial thickening in the left lower lobe with interval improvement since previous exam. Otherwise no acute cardiopulmonary pathology Electronically Signed: Santy Wiley MD at 20:07 EDT , Treatment and Re-Evaluation :: Differential diagnosis includes however is not limited to: Sepsis, UTI, metabolic encephalopathy, viral syndrome such as COVID-19 influenza RSV, community-acquired pneumonia Patient is in no obvious respiratory distress, patient's vital signs show some tachycardia, febrile at 101.5. Patient does look like she does not feel well. Patient will receive a septic workup secondary to the elevated blood pressure greater than 101 as well as the tachycardia. 1000 cc normal saline bolus will be ordered. Patient does only weigh 38 kg, this is 1100 total. Patient will receive a straight cath urine, chest x-ray, as well as viral swab. Other lab values will be reviewed such as lactic acid, CBC, BMP. Patient be given 650 mg of oral Tylenol. She is maintaining her airway. All radiologic examinations were read, reviewed by the emergency department attending. From these reads, a plan of care will be put in place. Patient CBC showed no leukocytosis, patient's hemoglobin was 11.2 this is stable. A 6.9 neutrophils, PT/INR within normal limits. Patient's chemistry did show some hyponatremia with a sodium of 130, creatinine is unremarkable. Patient's glucose was elevated at 282, chest x-ray showed probable residual chronic interstitial thickening in the left lower lobe with interval improvement since previous exam. Otherwise no acute cardiopulmonary pathology. Patient's urinalysis was negative for any infection. Patient COVID-19, influenza, RSV was negative. On reevaluation of the patient was feeling slightly better however the patient will still need to be admitted secondary to the failure to thrive and difficulty ambulating. I will speak out to hospitalist. Reevaluation, patient abdominal exam was unremarkable. Patient did appear better secondary to fever being improved. At this time, patient stable for admission. [email or web address] <Dr. Andrea Lackey, DO - Last Filed: 12/07/23 21:36> [facility] History & Record Review Discussion w/independent historian: Patient and Family Lab Data Attestation: I reviewed the patient's lab results. Labs: Laboratory Results - last 24 hr 12/07/23 12/07/23 18:53 19:30 WBC 8.6 RBC 3.58 L Hgb 11.2 L Hct 34.6 L MCV 96.6 MCH 31.3 MCHC 32.4 RDW Std Deviation 52.4 H RDW Coeff of Ed 14.8 H Plt Count 293 MPV 8.6 Immature Gran % (Auto) 0.600 Neut % (Auto) 86.9 H Lymph % (Auto) 6.1 L [place] % (Auto) 5.2 Eos % (Auto) 0.7 Baso % (Auto) 0.5 Absolute Neuts (auto) 7.5 Absolute Lymphs (auto) 0.52 L Nucleated RBC % 0 PT 13.8 INR 1.1 APTT 28.8 Sodium 130 L Potassium 3.9 Chloride 97 L Carbon Dioxide 28.0 Anion Gap 5 BUN 12 Creatinine 0.82 Estim Creat Clear Calc 31.49 Est GFR (MDRD) Af Amer 85 Est GFR (MDRD) Non-Af 70 BUN/Creatinine Ratio 14.6 Glucose 282 H Lactic Acid 1.6 Calcium 9.4 Total Bilirubin 0.40 AST 13 L ALT 14 Alkaline Phosphatase 99 Total Protein 7.6 Albumin 3.2 Globulin 4.4 H Albumin/Globulin Ratio 0.7 L Urine Color Yellow Urine Clarity Clear Urine pH 6.5 Ur Specific Ira 1.025 Urine Protein 30 H Urine Glucose (UA) 1000 H Urine Ketones Negative Urine Occult Blood 50 H Urine Nitrite Negative Urine Bilirubin Negative Urine Urobilinogen Normal Ur Leukocyte Esterase Negative Urine RBC 0-5 SEEN Urine WBC 0 SEEN Ur Squamous Epith Cells 0 SEEN Urine Bacteria 0 SEEN Urine Mucus 0 SEEN Radiography Diagnostic Testing: Clinical Impression(s) from Imaging Studies Chest X-Ray 12/07/23 19:30 IMPRESSION: Probable residual chronic interstitial thickening in the left lower lobe with interval improvement since previous exam. Otherwise no acute cardiopulmonary pathology Electronically Signed: Santy Wiley MD at 20:07 EDT Reading Location ID and State: [facility] / [place] Tel , Service support , Management Discussion w/another healthcare provider: Hospitalist (Dr. Browne) Treatment and Re-Evaluation :: Differential diagnosis includes however is not limited to: Sepsis, UTI, metabolic encephalopathy, viral syndrome such as COVID-19 influenza RSV, community-acquired pneumonia Patient is in no obvious respiratory distress, patient's vital signs show some tachycardia, febrile at 101.5. Patient does look like she does not feel well. Patient will receive a septic workup secondary to the elevated blood pressure greater than 101 as well as the tachycardia. 1000 cc normal saline bolus will be ordered. Patient does only weigh 38 kg, this is 1100 total. Patient will receive a straight cath urine, chest x-ray, as well as viral swab. Other lab values will be reviewed such as lactic acid, CBC, BMP. Patient be given 650 mg of oral Tylenol. She is maintaining her airway. All radiologic examinations were read, reviewed by the emergency department attending. From these reads, a plan of care will be put in place. Patient CBC showed no leukocytosis, patient's hemoglobin was 11.2 this is stable. A 6.9 neutrophils, PT/INR within normal limits. Patient's chemistry did show some hyponatremia with a sodium of 130, creatinine is unremarkable. Patient's glucose was elevated at 282, chest x-ray showed probable residual chronic interstitial thickening in the left lower lobe with interval improvement since previous exam. Otherwise no acute cardiopulmonary pathology. Patient's urinalysis was negative for any infection. Patient COVID-19, influenza, RSV was negative. On reevaluation of the patient was feeling slightly better however the patient will still need to be admitted secondary to the failure to thrive and difficulty ambulating. I will speak out to hospitalist. Reevaluation, patient abdominal exam was unremarkable. Patient did appear better secondary to fever being improved. At this time, patient stable for admission. [facility] obs. I have personally performed a face to face assessment of the patient and have reviewed the BRUNO Note. I performed a substantive portion of the visit including all aspects of the following. My barry findings include: History is 83-year-old female who lives at home and gets help from her family presenting today with fever and generalized weakness. Family noted that she was very weak today. She notes no nausea vomiting no cough shortness of breath sore throat earache runny nose. No chest pain. No rashes. No new pains. Exam is patient is febrile but appears hemodynamically stable. She appears very frail cachectic. Lung sounds are clear and equal heart is regular without murmur abdomen is benign. No CVA tenderness. No specific rashes. Medical Dec[facility] Making infectious disease workup was undertaken with negative findings. Urine which was a cath specimen is normal. COVID influenza RSV negative. Blood cultures were obtained. My independent interpretation of the chest x-ray is no acute findings. Please see radiologist evaluation. Case was discussed with the hospitalist. Plan will be admission. Discharge Plan Dx/Rx/DC Orders Clinical Impression: Fever, Acute metabolic encephalopathy, Weakness, Hyperglycemia Disposition Disposition: [facility]
[2023-12-07] MEDS: 0.9% Normal Saline (1000mL) 1,000 ML 999 ML IV (19:01)
[2023-12-07] MEDS: Acetaminophen 325 MG Tablet 650 MG PO (19:01)
[2023-12-07 19:05] LABS: Absolute Lymphocyte Count 0.52 X10^3/uL (0.83-4.51); Absolute Neutrophil Count 7.5 X10^3/uL (2.0-7.7); Basophil# 0.04 X10^3/uL; Basophil% 0.5 % (0-1); Eosinophil# 0.06 X10^3/uL; Eosinophils% 0.7 % (0-5); Hematocrit 34.6 % (37-47); Hemoglobin 11.2 g/dL (12.0-15.0); Lymphocyte # 0.52 X10^3/ul (0.83-4.51); Lymphocyte % 6.1 % (19-41); Mean Corp Hgb Conc 32.4 g/dL (32-36); Mean Corpuscular Hgb 31.3 pg (27.0-32.0); Mean Corpuscular Volume 96.6 fL (81-99); Mean Platelet Vol. 8.6 fl (6.2-12.0); Monocyte# 0.45 X10^3/uL; Monocyte% 5.2 % (0-10); NRBC Flagged by Analyzer 0 % (0-5); Neutrophil # 7.47 X10^3/uL (2.7-7.7); Neutrophil % 86.9 % (47-70); POSITIVE DIFFERENTIAL YES; Platelet Count 293 K/mm3 (150-450); RBC Distribution Width CV 14.8 % (11.6-14.6); RBC Distribution Width SD 52.4 fl (35.1-43.9); Red Blood Count 3.58 M/mm3 (4.2-5.4); White Blood Count 8.6 K/mm3 (4.4-11.0)
[2023-12-07 19:15] LABS: International Normalized Ratio 1.1; Prothrombin Time (Protime)PT. 13.8 SECONDS (11.7-14.9)
[2023-12-07 19:16] LABS: Partial Thromboplast Time 28.8 Seconds (24.1-36.2)
[2023-12-07 19:23] LABS: ALB/GLOB Ratio 0.7 RATIO (0.9-2.4); AST(SGOT) 13 U/L (15-37); Alanine Aminotransfer ALT/SGPT 14 U/L (13-56); Albumin, Serum 3.2 g/dL (3.2-5.0); Alkaline Phosphatase 99 U/L (45-117); Anion Gap 5 (5-15); BUN 12 mg/dL (7-18); BUN/Creat Ratio 14.6 RATIO (10-20); Calcium,Total 9.4 mg/dL (8.5-10.1); Chloride 97 mmol/L (98-107); Creatinine, Serum 0.82 mg/dL (0.55-1.02); EST Glomerular Filtration Rate 70 mL/min (>60); Est Glom Filt Rate - Afr Amer 85 mL/min (>60); Estimated Creatinine Clearance 31.49 ml/min; Globulin 4.4 g/dL (2.2-4.2); Glucose 282 mg/dL (74-106); Potassium 3.9 mmol/L (3.5-5.1); Protein, Total 7.6 g/dL (6.4-8.2); Sodium Level 130 mmol/L (136-145)
--- NOTE | 2023-12-07 19:30 | RAD_ITS ---
STUDY: X-RAY CHEST REASON FOR EXAM: Female, 83 years old. cough TECHNIQUE: AP portable COMPARISON: June 03, 2023 FINDINGS: Mild chronic interstitial thickening in left lower lobe.. There is mild pleural thickening in the pulmonary apices. There is no pleural effusion or pneumothorax. Normal size heart. Normal mediastinum and zbigniew. Normal visualized pulmonary arteries. Mildly calcified aortic arch and descending thoracic aorta. Dorsal spine demonstrates degenerative changes. Normal visualized ribs, clavicles, and shoulders. There is no demonstrated abnormality of the visualized soft tissue structures of the upper abdomen. There is improved aeration in left lower lobe since prior study RAD/Chest 1 View (Portable) IMPRESSION: Probable residual chronic interstitial thickening in the left lower lobe with interval improvement since previous exam. Otherwise no acute cardiopulmonary pathology Electronically Signed: Santy Wiley MD at 20:07 EDT ,
[2023-12-07 19:45] LABS: Bacteria 0 SEEN /hpf (None Seen); Mucous, Urine 0 SEEN /hpf (<or=2+); Squamous Epithelial Cells - UA 0 SEEN /hpf (5-10); White Blood Cells 0 SEEN /hpf (0-5)
[2023-12-07 20:05] LABS: Color, Urine Yellow (Yellow); Glucose, Dipstick 1000 mg/dl (Normal); Ketone-Dipstick Negative (Negative); Leukocyte Esterase-Dipstick Negative /ul (Negative); Nitrite-Dipstick Negative (Negative); Occult Blood-Urine 50 /ul (Negative); Protein-Dipstick 30 mg/dl (Negative); Specific Gravity, Urine 1.025 (1.002-1.030); Urine Bilirubin Dipstick Negative (Negative); Urine Clarity Clear (Clear); Urine Urobilinogen Normal (Normal); Urine pH 6.5 (5.0 - 8.0)
[2023-12-07 20:11] LABS: Lactic Acid 1.6 mmol/L (0.4-1.9)
[2023-12-07 20:16] LABS: Red Blood Cells-Urine 0-5 SEEN /hpf (0-5)
--- NOTE | 2023-12-07 20:26 | PCM.HP.STD ---
HPI - General General Date of Admission: 12/07/23 Date of Service: 12/07/23 Chief Complaint: Fatigue, malaise, fever, weakness. HPI Narrative The patient is an 83 y/o F w/ PMHx: Chronic anemia/Fe deficiency anemia, Anxiety and Depression, HTN, HLD, RA, Diabetes mellitus type II, Chronic back pain, Chronic constipation who presents to the [facility] ED on 12/07/23 with history of living alone although her daughter does help and assist with certain activities but recently on day of presentation family reports that the patient was significantly weak with difficulty even getting up out of a chair and subjectively felt warm and was mildly confused with general fatigue and malaise prompting family to bring patient in for ED evaluation. Workup in the ED included T97.4, heart 110, BP 161/97, respiratory rate 17, 97% on room air with Tmax in the ED 101.5, most recent vital signs T90.4, heart rate 100, BP 125/56, respiratory rate 20, 97% on room air, CBC with WBC 8.6, hemoglobin 11.2, MCV 96.6, platelet 293 without marked shift with lymphopenia, unremarkable coags, CMP with sodium 130, chloride 97, BUN/creatinine 12/0.82, GFR 70, glucose 282, hepatic profile not marked appearing, lactic acid 1.6, blood culture x 2 pending per ED, rapid SARS COVID/influenza/RSV negative, Chest x-ray probable residual chronic interstitial thickening the left lower lobe with interval improvement since previous exam otherwise no acute cardiopulmonary findings, urinalysis with specific gravity 1.025, protein 30, glucose of thousand, occult blood 50, negative nitrite, negative leukocyte Estrace with no evidence of UTI, urine culture pending per ED. In the ED patient ministered 1 L normal saline as well as Tylenol 650 mg p.o. x 1. [facility] Medical History COVID [facility] resident Loss of hearing Wears glasses Wears dentures Post-menopausal Cancer Forgetfulness Anxiety Open wound Pain Walker as ambulation aid Bladder disease Injury of back Syncope FTT (failure to thrive) in adult History of diverticulitis Chronic constipation Non-smoker History of pain when walking History of echocardiogram Hypertension Iron deficiency anemia Osteoarthritis Rheumatoid arthritis High cholesterol Diabetes Home Medications ?Medication ?Instructions ?Recorded ?Last Taken ?Type cholecalciferol (vitamin D3) 25 2,000 unit PO DAILY SUPPLEMENT 07/25/14 05/31/23 History mcg (1,000 unit) tablet (Vitamin D3) baclofen 10 mg tablet 10 mg PO QHS MUSCLE SPASMS 05/25/23 05/30/23 History acetaminophen 500 mg tablet 1,000 mg PO BID 12/07/23 Unknown History levothyroxine 25 mcg tablet 25 mcg PO DAILY 12/07/23 Unknown History Allergy/AdvReac Type Severity Reaction Status Date / Time alendronate sodium (From Allergy Anaphylaxis Verified 12/07/23 18:26 Fosamax) Penicillins Allergy Swelling Verified 12/07/23 18:26 Family History Mother Alzheimer disease Father Myocardial infarction Hypertension Heart disease CAD (coronary artery disease) Surgical History Hx of colonoscopy History of surgery on arm S/P ORIF (open reduction internal fixation) fracture Social History household members: none Smoking Status: Never smoker alcohol intake: never substance use type: does not use ROS ROS Narrative Admission Review of Systems: CONSTITUTIONAL: No weight loss, fever, chills, + weakness or fatigue. HEENT: Eyes: No visual loss, blurred vision, double vision or yellow sclerae. Ears, Nose, Throat: No hearing loss, sneezing, congestion, runny nose or sore throat. SKIN: No rash or itching, lesions, wounds. CARDIOVASCULAR: No chest pain, chest pressure or chest discomfort, palpitations, edema, orthopnea, syncopal events. RESPIRATORY: No shortness of breath, cough or sputum, wheezing, hemoptysis. GASTROINTESTINAL: +. No anorexia, nausea, vomiting or diarrhea, abdominal pain, melena, BRBPR. GENITOURINARY: No dysuria, frequency, urgency or retention. NEUROLOGICAL: + Family reported mild cognitive impairment. No headache, dizziness, syncope, paralysis, ataxia, numbness or tingling in the extremities, focal weakness, change in bowel or bladder control, seizure. MUSCULOSKELETAL: + muscle, back pain, joint pain or stiffness. HEMATOLOGIC: + Chronic anemia, easy bleeding/bruising. LYMPHATICS: No enlarged nodes. No history of splenectomy. PSYCHIATRIC: + History of anxiety and depression. ENDOCRINOLOGIC: No reports of sweating, cold or heat intolerance. No polyuria or polydipsia. ALLERGIES: + History of anaphylaxis. Vital Signs Vital Signs Vital Signs: 12/07/23 18:24 12/07/23 18:36 12/07/23 18:38 Temperature 97.4 F L 101.5 F H Temperature Source Temporal Oral Pulse Rate 110 H 103 H Respiratory Rate 17 16 Respiratory Effort Normal Non-Labored Respiratory Pattern Normal Blood Pressure 161/97 H 158/81 H Blood Pressure Mean 118 106 Pulse Ox 97 96 Oxygen Delivery Method Room Air Room Air 12/07/23 18:45 12/07/23 19:31 12/07/23 20:00 Temperature 98.4 F 98.8 F Temperature Source Oral Oral Pulse Rate 100 98 Respiratory Rate 20 H 14 Respiratory Effort Respiratory Pattern Blood Pressure 125/56 H 121/58 H Blood Pressure Mean 79 79 Pulse Ox 98 97 96 Oxygen Delivery Method Room Air Room Air Room Air Weight Weight: 84 lb 9.6 oz Body Mass Index (BMI) 16.6 Physical Exam Narrative Physical Examination: General: Awake, alert, oriented to self, place and recent events, remains cooperative, seated upright in the ED bed, fatigued appearing, mildly flat affect with discussions. Skin: Normal color, normal turgor, no icterus, no cyanosis except occasional abrasion. HEENT: AT/NC, EOMI, PERRLA, dry MM, no carotid bruits or JVD noted. Lungs: Mildly diminished, greater bases, appropriate effort, no rales, ronchi or wheezing. Heart: Mildly tachycardic with regular rhythm; no gallop, rub audible. Abdomen: Soft, thin habitus, NTTP, ND, mildly hyperactive BS, no appreciated HSM. Extremities: No cyanosis, no clubbing, pedal to mid carter chronic edema unchanged per discussion with patient and friends present. Neurological: Patient awake, alert, oriented as noted, cognitive function currently appears intact but does have on chart noted mild cognitive impairment history; pupils equally reactive to light and accommodation, cranial nerves grossly normal, moving all 4 extremities, no focal deficits, strength moderately to severely globally decreased. Psychiatric: Affect appears flat, fatigued, do suspect underlying depressive feelings as patient relates feeling as though she is a burden to those around her, does have listed anxiety and depressive history, no SI. Results Lab / Micro Data 12/07/23 18:53 12/07/23 18:53 Labs: Laboratory Results - last 24 hr 12/07/23 18:53: WBC 8.6, RBC 3.58 L, Hgb 11.2 L, Hct 34.6 L, MCV 96.6, MCH 31.3, MCHC 32.4, RDW Std Deviation 52.4 H, RDW Coeff of Ed 14.8 H, Plt Count 293, MPV 8.6, Immature Gran % (Auto) 0.600, Neut % (Auto) 86.9 H, Lymph % (Auto) 6.1 L, [place] % (Auto) 5.2, Eos % (Auto) 0.7, Baso % (Auto) 0.5, Absolute Neuts (auto) 7.5, Absolute Lymphs (auto) 0.52 L, Nucleated RBC % 0, PT 13.8, INR 1.1, APTT 28.8, Sodium 130 L, Potassium 3.9, Chloride 97 L, Carbon Dioxide 28.0, Anion Gap 5, BUN 12, Creatinine 0.82, Estim Creat Clear Calc 31.49, Est GFR (MDRD) Af Amer 85, Est GFR (MDRD) Non-Af 70, BUN/Creatinine Ratio 14.6, Glucose 282 H, Lactic Acid 1.6, Calcium 9.4, Total Bilirubin 0.40, AST 13 L, ALT 14, Alkaline Phosphatase 99, Total Protein 7.6, Albumin 3.2, Globulin 4.4 H, Albumin/Globulin Ratio 0.7 L 12/07/23 19:30: Urine Color Yellow, Urine Clarity Clear, Urine pH 6.5, Ur Specific [place] 1.025, Urine Protein 30 H, Urine Glucose (UA) 1000 H, Urine Ketones Negative, Urine Occult Blood 50 H, Urine Nitrite Negative, Urine Bilirubin Negative, Urine Urobilinogen Normal, Ur Leukocyte Esterase Negative, Urine RBC 0-5 SEEN, Urine WBC 0 SEEN, Ur Squamous Epith Cells 0 SEEN, Urine Bacteria 0 SEEN, Urine Mucus 0 SEEN Micro: Microbiology 12/07/23 19:05 Mucosa - Nose SARS-CoV-2, Influenza & RSV (PCR) - Final Imaging Radiology Impression Chest X-Ray 12/07/23 19:30 IMPRESSION: Probable residual chronic interstitial thickening in the left lower lobe with interval improvement since previous exam. Otherwise no acute cardiopulmonary pathology Electronically Signed: Santy Wiley MD at 20:07 EDT , Assessment & Plan Assessment/Plan (1) FUO (fever of unknown origin): PLAN: Plan The patient is an 83 y/o F w/ PMHx: Chronic anemia/Fe deficiency anemia, Anxiety and Depression, HTN, HLD, RA, Diabetes mellitus type II, Chronic back pain, Chronic constipation who presents to the [facility] ED on 12/07/23 with history of living alone although her daughter does help and assist with certain activities but recently on day of presentation family reports that the patient was significantly weak with difficulty even getting up out of a chair and subjectively felt warm and was mildly confused with general fatigue and malaise prompting family to bring patient in for ED evaluation. #1. Fever of unclear origin, suspected acute viral syndrome but uncertain compounded by adult failure to thrive as well as suspected mild acute encephalopathy associated with the infectious illness, debility, unable to safely care for herself living alone: Will admit to medical surgical floor, maintain on fall precautions, continue judicious hydration, will obtain full respiratory viral panel, will obtain procalcitonin to be cautious, if any onset of upper respiratory type symptoms may certainly consider repeat chest x-ray in a.m. following overnight hydration, PT/OT/case management consulted for discharge planning as patient likely will need skilled facility placement given unsafe situation living alone and daughter unable to care for her full-time. #2. Diabetes mellitus type II: Hold oral home regimen, ADA diet, accu checks w/ ISS. Admission glucose 282, hemoglobin A1c requested. #3. Chronic back pain with spinal stenosis in the lumbar region: Complicates presentation, encourage continued ambulation, positional changes, offloading, continue home gabapentin as well as baclofen regimen judiciously. PT/OT/case management consulted as noted. #4. Anxiety and depression: Per current list does not appear to be on regimen but will need to be followed especially given advanced age untreated depression certainly could contribute with patient noting feelings of being a burden to her friends and family. Would benefit from follow-up outpatient to assure improved or initiate regimen/counseling. #5. Hypertension: Per current list not on regimen, BP initially elevated upon arrival however improved following, continue to monitor and if necessary may add regimen, IV hydralazine in the interim. #6. Hyperlipidemia: Not on regimen, defer to outpatient. #7. Rheumatoid arthritis: Per current regimen list does not appear to be on any specific antirheumatic agents, encourage continued outpatient follow-up with rheumatology as previously arranged. #8. Chronic anemia/iron deficiency anemia: Admission glucose 11.2, MCV 96.6, baseline hemoglobin appears similar range 10-11, stable, continue to trend, clarifying if on iron supplementation but does not appear to be on her current regimen list. #9. Severe protein calorie malnutrition: Significantly reduced BMI of 16, evidence of muscle and fat loss, nutrition consulted, supplementation per the direction. #10. Chronic Kidney Disease Stage II per most recent GFR trending but uncertain: Admission BUN/Cr 12/0.82, 70, baseline renal function previously primarily 0.6 however since 08/28/2023 0.8 appears more baseline now, previous 08/2023 GFR 66, repeat BMP in AM. #11. Chronic constipation: We will continue patient home bowel regimen. #12. DVT prophylaxis: Lovenox. #13. CODE status: Patient CADY is her brother and living will is currently in place. Discussed CODE status at length including difference between FULL code, DNR-CCA and DNR-CC status. Following discussions about the differences in these status, requested DNR-CCA, no intubation. Advanced Care Planning Face to Face Time: 16 minutes. Charges/Coding Visit Charges Inpatient E&M: 65539 Init Hosp L2 Procedures Hospitalists Procedures: 79133 Advncd Care Plan 30 Min
[2023-12-07 22:50] LABS: Procalcitonin 0.29 ng/mL (0.00-0.09)
[2023-12-07] MEDS: SimETHICONE 80 MG Chewable Tablet PO (22:50)
[2023-12-07] MEDS: Lactulose 20 GM/30 ML UDC PO (22:50)
[2023-12-07] MEDS: Baclofen 10 MG Tablet PO (22:50)
[2023-12-07] MEDS: Insulin Lispro 100 UNIT/ML INSULN.PEN SC (23:11)
[2023-12-07] MEDS: 0.9% Saline Lock 10 ML Syringe IV (23:18)
[2023-12-07] MEDS: 0.9% Normal Saline (1000mL) 1,000 ML 100 ML IV (23:20)
[2023-12-08] VITALS (7 sets, daily range): BP systolic 112–139; BP diastolic 51–82; PULSE 91–98; RESP 16–18; TEMP 36.7–38; O2SAT 96–99
[2023-12-08 00:37] LABS: Bedside Glucose 239 mg/dL (74-106)
[2023-12-08 05:54] LABS: Absolute Lymphocyte Count 0.39 X10^3/uL (0.83-4.51); Absolute Neutrophil Count 7.1 X10^3/uL (2.0-7.7); Basophil# 0.03 X10^3/uL; Basophil% 0.4 % (0-1); Eosinophil# 0.04 X10^3/uL; Eosinophils% 0.5 % (0-5); Hematocrit 31.9 % (37-47); Hemoglobin 10.2 g/dL (12.0-15.0); Lymphocyte # 0.39 X10^3/ul (0.83-4.51); Lymphocyte % 4.9 % (19-41); Mean Corpuscular Hgb 31.1 pg (27.0-32.0); Mean Corpuscular Volume 97.3 fL (81-99); Mean Platelet Vol. 8.4 fl (6.2-12.0); Monocyte# 0.45 X10^3/uL; Monocyte% 5.6 % (0-10); NRBC Flagged by Analyzer 0 % (0-5); Neutrophil # 7.07 X10^3/uL (2.7-7.7); Neutrophil % 88.3 % (47-70); POSITIVE DIFFERENTIAL YES; Platelet Count 262 K/mm3 (150-450); RBC Distribution Width CV 14.9 % (11.6-14.6); RBC Distribution Width SD 53.8 fl (35.1-43.9); Red Blood Count 3.28 M/mm3 (4.2-5.4)
[2023-12-08 06:27] LABS: ALB/GLOB Ratio 0.7 RATIO (0.9-2.4); AST(SGOT) 17 U/L (15-37); Alanine Aminotransfer ALT/SGPT 13 U/L (13-56); Albumin, Serum 2.7 g/dL (3.2-5.0); Alkaline Phosphatase 79 U/L (45-117); Anion Gap 9 (5-15); BUN 7 mg/dL (7-18); BUN/Creat Ratio 11.3 RATIO (10-20); Chloride 103 mmol/L (98-107); Creatinine, Serum 0.62 mg/dL (0.55-1.02); EST Glomerular Filtration Rate 97 mL/min (>60); Est Glom Filt Rate - Afr Amer 118 mL/min (>60); Estimated Creatinine Clearance 31.21 ml/min; Globulin 3.8 g/dL (2.2-4.2); Glucose 211 mg/dL (74-106); Potassium 3.6 mmol/L (3.5-5.1); Protein, Total 6.5 g/dL (6.4-8.2); Sodium Level 137 mmol/L (136-145)
[2023-12-08] MEDS: BRIMONIDINE 0.2% 5ML BOTTLE 1 DRP EACH EYE ×2 (06:31→17:08)
[2023-12-08] MEDS: Timolol 0.5% 5ML OPTH.BTL 1 DRP EACH EYE ×2 (06:31→17:07)
[2023-12-08] MEDS: Menthol/Lanolin/Calamine/Znox 113 GM Tube 1 APPLIC TOPICAL ×2 (06:31→22:26)
[2023-12-08] MEDS: Insulin Lispro 100 UNIT/ML INSULN.PEN SC (06:32)
[2023-12-08 07:14] LABS: Bedside Glucose 194 mg/dL (74-106)
[2023-12-08] MEDS: Lidocaine 5% Patch 1 PATCH TOPICAL ×2 (08:30→22:27)
[2023-12-08] MEDS: Enoxaparin 30 MG/0.3 ML Syringe SC (08:31)
[2023-12-08] MEDS: SimETHICONE 80 MG Chewable Tablet PO ×2 (08:31→17:07)
[2023-12-08] MEDS: Lactulose 20 GM/30 ML UDC PO (08:31)
[2023-12-08] MEDS: 0.9% Normal Saline (1000mL) 1,000 ML 100 ML IV (08:32)
[2023-12-08] MEDS: Gabapentin 100 MG Capsule PO (08:38)
[2023-12-08 09:41] LABS: Hemoglobin A1c 8.4 % (3.8-5.6)
--- NOTE | 2023-12-08 11:25 | PCM.PN.HOSP ---
Reason for Visit Reason for Visit: Diagnoses Fever, unspecified (12/07/23) Subjective Subjective Patient lying in bed, mumbled answers to some questions but was mostly sneezing and then did not want to answer further questions Objective Data Objective Data Vital Signs: Vital Signs Temp Pulse Resp BP Pulse Ox O2 Del Method 99.1 F 91 18 112/51 L 97 Room Air 12/08/23 10:10 12/08/23 10:10 12/08/23 10:10 12/08/23 10:10 12/08/23 10:10 12/08/23 10:10 Oxygen Delivery Method Room Air Weight: 37.1 kg Body Mass Index (BMI) 14.0 Intake & Output: Intake and Output for Last 24 Hours 12/06/23 12/07/23 12/08/23 23:59 23:59 23:59 Intake Total 1000 / 1000 920 / 920 Output Total 200 / 200 450 / 450 Balance 800 / 800 470 / 470 Lab / Micro Data 12/08/23 05:30 12/08/23 05:30 Labs: Laboratory Results - last 24 hr 12/07/23 18:53: WBC 8.6, RBC 3.58 L, Hgb 11.2 L, Hct 34.6 L, MCV 96.6, MCH 31.3, MCHC 32.4, RDW Std Deviation 52.4 H, RDW Coeff of Ed 14.8 H, Plt Count 293, MPV 8.6, Immature Gran % (Auto) 0.600, Neut % (Auto) 86.9 H, Lymph % (Auto) 6.1 L, [place] % (Auto) 5.2, Eos % (Auto) 0.7, Baso % (Auto) 0.5, Absolute Neuts (auto) 7.5, Absolute Lymphs (auto) 0.52 L, Nucleated RBC % 0, PT 13.8, INR 1.1, APTT 28.8, Sodium 130 L, Potassium 3.9, Chloride 97 L, Carbon Dioxide 28.0, Anion Gap 5, BUN 12, Creatinine 0.82, Estim Creat Clear Calc 31.49, Est GFR (MDRD) Af Amer 85, Est GFR (MDRD) Non-Af 70, BUN/Creatinine Ratio 14.6, Glucose 282 H, Lactic Acid 1.6, Calcium 9.4, Total Bilirubin 0.40, AST 13 L, ALT 14, Alkaline Phosphatase 99, Total Protein 7.6, Albumin 3.2, Globulin 4.4 H, Albumin/Globulin Ratio 0.7 L 12/07/23 19:30: Urine Color Yellow, Urine Clarity Clear, Urine pH 6.5, Ur Specific [place] 1.025, Urine Protein 30 H, Urine Glucose (UA) 1000 H, Urine Ketones Negative, Urine Occult Blood 50 H, Urine Nitrite Negative, Urine Bilirubin Negative, Urine Urobilinogen Normal, Ur Leukocyte Esterase Negative, Urine RBC 0-5 SEEN, Urine WBC 0 SEEN, Ur Squamous Epith Cells 0 SEEN, Urine Bacteria 0 SEEN, Urine Mucus 0 SEEN 12/07/23 21:50: Procalcitonin 0.29 H 12/07/23 22:52: POC Glucose 239 H 12/08/23 05:30: WBC 8.0, RBC 3.28 L, Hgb 10.2 L, Hct 31.9 L, MCV 97.3, MCH 31.1, MCHC 32.0, RDW Std Deviation 53.8 H, RDW Coeff of Ed 14.9 H, Plt Count 262, MPV 8.4, Immature Gran % (Auto) 0.300, Neut % (Auto) 88.3 H, Lymph % (Auto) 4.9 L, [place] % (Auto) 5.6, Eos % (Auto) 0.5, Baso % (Auto) 0.4, Absolute Neuts (auto) 7.1, Absolute Lymphs (auto) 0.39 L, Nucleated RBC % 0, Sodium 137, Potassium 3.6, Chloride 103, Carbon Dioxide 25.0, Anion Gap 9, BUN 7, Creatinine 0.62, Estim Creat Clear Calc 31.21, Est GFR (MDRD) Af Amer 118, Est GFR (MDRD) Non-Af 97, BUN/Creatinine Ratio 11.3, Glucose 211 H, Hemoglobin A1c 8.4 H, Calcium 9.0, Total Bilirubin 0.30, AST 17, ALT 13, Alkaline Phosphatase 79, Total Protein 6.5, Albumin 2.7 L, Globulin 3.8, Albumin/Globulin Ratio 0.7 L 12/08/23 06:29: POC Glucose 194 H Micro: Microbiology 12/07/23 20:40 Mucosa - Nasopharyngeal Respiratory Panel (PCR) - Final 12/07/23 19:05 Mucosa - Nose SARS-CoV-2, Influenza & RSV (PCR) - Final Radiography Diagnostic Testing: Radiology Impression Chest X-Ray 12/07/23 19:30 IMPRESSION: Probable residual chronic interstitial thickening in the left lower lobe with interval improvement since previous exam. Otherwise no acute cardiopulmonary pathology Electronically Signed: Santy Wiley MD at 20:07 EDT Reading Location ID and State: [address] [place] [address] Tel , Service support , Physical Exam Narrative General: Patient resting, woke up and was awake but did not answer many questions HEENT: Atraumatic, normocephalic Eyes: Anicteric, normal conjunctiva, extraocular movements grossly intact Neck: Supple Respiratory: Normal respiratory effort, would not take large inspirations so that she could be listened to Cardiovascular: Regular rate and rhythm GI: Soft, nontender, nondistended Extremities: No edema Musculoskeletal: Moves extremities in bed Neuro: Patient did not cooperate with neuroexam Skin: No rashes appreciated Psych: Patient initially mumbled answers to questions in the beginning and then was awake but did not answer further questions Assessment & Plan Assessment/Plan (1) Acute metabolic encephalopathy: (2) Adult failure to thrive: (3) Diabetes: (4) Fever: (5) Rheumatoid arthritis: PLAN: Plan #Metabolic encephalopathy/Weakness -Patient awake but tired and will answer some questions -Will need to establish what patient's baseline is -Patient with one-time fever in ED, was not started on antibiotics as no bacterial infection located -It is felt that there may be some kind of viral illness -UA within normal limits, white count within normal limits, CMP unremarkable -Pro-Gio 0.29, unclear clinical significance given lack of other infectious etiology -Blood cultures pending -Did have negative respiratory panels -Interestingly ESR within normal limits, CRP was elevated at 97, will recheck these in the morning -Will DC baclofen as this could be contributing to patient being very tired and having decreased interaction today -Additionally patient was started on gabapentin which could be contributing to patient being tired and not as interactive this morning so we will discontinue and assess -Will also check folate and B12 and appears patient is on home Synthroid will check TSH and free T4 -PT/OT # fever -UA unremarkable, lab workup unremarkable -Pro-Gio very mildly elevated at 0.29, unclear significance -No further fevers despite no antibiotics -Awaiting cultures -Viral panel negative -If any further antibiotics may CT chest and abdomen and start antibiotics -Patient status post IV fluids #Type 2 diabetes mellitus -Glucose checks and sliding scale insulin # Rheumatoid arthritis/Chronic pain -Not on any RA medications it appears -Continue lidocaine patches -Tylenol as needed -Given mental status will DC baclofen and gabapentin #Hypothyroidism -Continue Synthroid # Low BMI -BMI 14.0 -[place] diet -Meal protein supplementation #DVT ppx: Lovenox subcu Chrissie Javier MD Time spent in the patient's overall evaluation,decision-making process, review of diagnostic data, adjustment of management, discussion with other providers, nursing nursing and ancillary staff involved in patient's care documentation, 32 Minutes Charges/Coding Visit Charges Inpatient E&M: 24123 Subs Hosp L2
[2023-12-08 12:02] LABS: Erythrocyte Sedimentation Rate 28 mm/hr (0-30)
[2023-12-08 12:07] LABS: Bedside Glucose 125 mg/dL (74-106)
[2023-12-08 14:45] LABS: Vitamin B12 487 pg/mL (211-911); Vitamin D,25 Hydroxy 48.9 ng/mL
--- NOTE | 2023-12-08 14:45 | CASEMGMT ---
Discharge Planning A list of SNF providers including quality and resource use data and consistent with the patient's preferred geographic region, medical needs, and insurance network was created in [employer] Guide.? This list was provided to the RN TON. Karina Frey, Discharge Planning Asst.
--- NOTE | 2023-12-08 15:10 | CASEMGMT ---
HERNESTO CAMILO Face to Face with patient for initial transition planning/care coordination assessment. HERNESTO CAMILO introduced self and role at [facility]. Patient sitting in chair, very drowsy. Patient unable to participate in assessment. HERNESTO CM called brother ED to complete assessment. Ed willing to participate in assessment and is able to answer all questions appropriately. Care providers, pharmacy, and demographics verified. PCP: [facility] Specialists: [facility] [employer] [facility] Prescription Benefit: yes Living Will/HPOA: yes, brother Ed Root LNOK: brother, sister in law Living Arrangements: Patient lives alone in a 2 story home with bed and bath on first floor. Patient is independent for dressing and toileting, sister in law assists with bathing. Transportation: brother and sister in law DME/HHC: Patient has shower chair, grab bars, walker, rollator, and wheelchair at home. Patient has had HHC in the past but brother cannot recall agency. Patient has been to [facility] in the past. Therapy is recommending SNF at discharge. RN CM discuss therapy recommendations and is agreeable. Ed would like to dicuss with about SNF preferences. HERNESTO CM to leave SNF list in room. HERNESTO CAMILO completed [facility] form with brother over the phone. RN CM explained [facility] Form to brother. Brother voiced understanding and gave telephone consent. Ed states he has no further needs or concerns at this time. SW updated regarding SNF at discharge. CM to follow for discharge planning needs that may arise. Disposition Plan: SNF pending preferences, acceptance, and precert. Kati LEDESMAN, RN, CM
[2023-12-08 15:20] LABS: T4 Free Direct 1.32 ng/dL (0.76-1.46)
--- NOTE | 2023-12-08 15:41 | CT_ITS ---
INDICATION: fever of unknown origin EXAMINATION: CT Chest Abdomen And Pelvis W/ Contrast Injection TECHNIQUE: Images were obtained of the chest, abdomen and pelvis following IV contrast. A radiation dose optimization technique was used for this scan. IV Contrast dosage and agent: Oral and amp; IV Gastrografin and amp; 50mL [id number] COMPARISON: None. FINDINGS: Lungs: There is intralobular septal thickening. Scattered ground glass opacities. Mediastinum: The cardiomediastinal silhouette is not enlarged. No mediastinal, hilar or axillary adenopathy. Mild aortic arch and coronary artery calcifications. No obvious filling defect seen within the visualized pulmonary arteries. Pleura: Trace bilateral pleural effusions. Liver: Unremarkable Gallbladder: Unremarkable Spleen: Unremarkable Pancreas: Unremarkable Adrenal Glands: Unremarkable Kidneys: Unremarkable Vasculature: Severe aortoiliac atherosclerotic disease. GI Tract: Hiatal hernia. Circumferential gastric wall thickening. Large amount retained stool in the colon. Prominent fluid-filled loops of small bowel. Lymphadenopathy: None Peritoneum: No ascites. Bladder: Unremarkable Reproductive organs: Unremarkable Bones/Soft tissues: There are diffuse degenerative changes of the spine. Age indeterminate severe compression deformities of T8-L3. There is a left hip arthroplasty. CT/CT Chest, Abd, Pel w/Contrast IMPRESSION: Circumferential gastric wall thickening could represent gastritis in the correct clinical setting. Cannot rule out malignancy. Age indeterminate severe compression deformities of T8-L3. Interstitial lung edema with trace bilateral pleural effusions. Electronically Signed: Clinton Gentile MD at 20:39 EDT ,
--- NOTE | 2023-12-08 15:42 | CHAPLAIN ---
Type of Pastoral Visit _x__ Initial Visit ___ Follow-up Visit ___ On-call Visit ___ General Patient Visit ___ Spiritual Assessment ___ Family Conference ___ Bereavement ___ Rapid Response ___ Code Blue ___ Other (describe below) Pastoral Care Referral From _x__ Patient ___ Family ___ Nurse ___ Physician ___ Food And Beverage Server ___ Hydrology Technician ___ Other (describe below) Sacrament/Intervention ___ Active listening ___ Anointing ___ Moravian ___ Bereavement ___ Communion ___ Samantha exploration ___ ___ Life review _x__ Prayer ___ Reconciliation ___ Sacrament of Sick _x__ Supportive presence ___ Wedding ___ Other (describe below) Pastoral Comments patient was napping in her chair; pt did open her eyes and acknowledge this precision instrument and tool maker when her name was called; pt continued to keep eyes closed; offer of support and presence; offer of prayer; pt did say yes to having a prayer spoken; otherwise pt did not engage in conversation; offered future support as pt would desire
--- NOTE | 2023-12-08 15:52 | PCM.HOSP.N ---
Hospitalist Note Discussed with patient's brother who is her listed contact regarding repeat fever and lack of specific findings on lab work and no growth on cultures yet and my intention of getting imaging for fever of unknown origin and starting antibiotics in the interim. He reports that at baseline she is able to hold a conversation and is fairly awake and alert, waxes and wanes with how mobile she is however. It is possible that she is currently tired due to gabapentin and baclofen but cannot rule out that is due to any other underlying etiology
[2023-12-08] MEDS: 0.9% Saline Lock 10 ML Syringe IV ×2 (16:02→22:29)
[2023-12-08] MEDS: Cefepime HCl 2 GM in 0.9% Normal Saline (100mL MB+) 100 ML IV ×2 (16:02→22:31)
[2023-12-08 16:17] LABS: Phosphorus 2.3 mg/dL (2.5-4.9)
[2023-12-08 16:37] LABS: Bedside Glucose 117 mg/dL (74-106)
[2023-12-08 23:24] LABS: Bedside Glucose 96 mg/dL (74-106)
[2023-12-09] VITALS (10 sets, daily range): BP systolic 101–128; BP diastolic 53–74; PULSE 79–96; RESP 16–22; TEMP 36.5–39.9; O2SAT 94–100; BMI 14.0
[2023-12-09] MEDS: BRIMONIDINE 0.2% 5ML BOTTLE 1 DRP EACH EYE ×2 (06:26→20:24)
[2023-12-09] MEDS: Timolol 0.5% 5ML OPTH.BTL 1 DRP EACH EYE ×2 (06:26→20:24)
[2023-12-09] MEDS: Levothyroxine 25 MCG TABLET PO (06:26)
[2023-12-09] MEDS: Menthol/Lanolin/Calamine/Znox 113 GM Tube 1 APPLIC TOPICAL ×3 (06:27→20:25)
[2023-12-09 07:14] LABS: Absolute Lymphocyte Count 0.42 X10^3/uL (0.83-4.51); Absolute Neutrophil Count 7.9 X10^3/uL (2.0-7.7); Basophil# 0.04 X10^3/uL; Basophil% 0.4 % (0-1); Eosinophil# 0.03 X10^3/uL; Eosinophils% 0.3 % (0-5); Hematocrit 34.8 % (37-47); Lymphocyte # 0.42 X10^3/ul (0.83-4.51); Lymphocyte % 4.7 % (19-41); Mean Corp Hgb Conc 31.6 g/dL (32-36); Mean Corpuscular Hgb 30.6 pg (27.0-32.0); Mean Corpuscular Volume 96.7 fL (81-99); Mean Platelet Vol. 8.7 fl (6.2-12.0); Monocyte# 0.51 X10^3/uL; Monocyte% 5.7 % (0-10); NRBC Flagged by Analyzer 0 % (0-5); Neutrophil # 7.85 X10^3/uL (2.7-7.7); Neutrophil % 88.2 % (47-70); POSITIVE DIFFERENTIAL YES; Platelet Count 244 K/mm3 (150-450); RBC Distribution Width CV 14.9 % (11.6-14.6); RBC Distribution Width SD 53.9 fl (35.1-43.9); White Blood Count 8.9 K/mm3 (4.4-11.0)
[2023-12-09 07:15] LABS: Erythrocyte Sedimentation Rate 24 mm/hr (0-30)
[2023-12-09 07:22] LABS: Bedside Glucose 75 mg/dL (74-106)
[2023-12-09] MEDS: Loratadine 10 MG Tablet PO (09:39)
[2023-12-09] MEDS: SimETHICONE 80 MG Chewable Tablet PO (09:39)
[2023-12-09] MEDS: Lactulose 20 GM/30 ML UDC PO ×2 (09:39→20:24)
[2023-12-09] MEDS: Lidocaine 5% Patch 1 PATCH TOPICAL ×2 (09:40→20:26)
[2023-12-09] MEDS: Enoxaparin 30 MG/0.3 ML Syringe SC (09:41)
[2023-12-09] MEDS: Ensure Plus High Protein 120 ML LIQUID PO ×2 (09:43→13:57)
[2023-12-09 10:40] LABS: Anion Gap 12 (5-15); BUN 11 mg/dL (7-18); BUN/Creat Ratio 16.6 RATIO (10-20); Calcium,Total 8.7 mg/dL (8.5-10.1); Chloride 99 mmol/L (98-107); Creatinine, Serum 0.66 mg/dL (0.55-1.02); EST Glomerular Filtration Rate 90 mL/min (>60); Est Glom Filt Rate - Afr Amer 109 mL/min (>60); Estimated Creatinine Clearance 31.12 ml/min; Glucose 79 mg/dL (74-106); Potassium 3.4 mmol/L (3.5-5.1); Sodium Level 134 mmol/L (136-145)
[2023-12-09] MEDS: Cefepime HCl 2 GM in 0.9% Normal Saline (100mL MB+) 100 ML IV (11:16)
[2023-12-09] MEDS: Insulin Lispro 100 UNIT/ML INSULN.PEN SC ×3 (11:34→20:31)
[2023-12-09 11:52] LABS: Bedside Glucose 227 mg/dL (74-106)
--- NOTE | 2023-12-09 12:33 | PCM.PN.HOSP ---
Reason for Visit Reason for Visit: Diagnoses Type 2 diabetes mellitus without complications (12/08/23) Metabolic encephalopathy (12/08/23) Rheumatoid arthritis, unspecified (12/08/23) Fever, unspecified (12/08/23) Adult failure to thrive (12/08/23) Subjective Subjective Patient more awake and alert today, does fall back asleep easily but answered questions overall appropriately. Reports she has some upper abdominal/epigastric pain and feels weak but denies any other specific complaints Objective Data Objective Data Vital Signs: Vital Signs Temp Pulse Resp BP Pulse Ox O2 Del Method 98.1 F 83 16 115/64 98 Room Air 12/09/23 09:22 12/09/23 09:22 12/09/23 09:22 12/09/23 09:22 12/09/23 09:22 12/09/23 09:30 Oxygen Delivery Method Room Air Weight: 37 kg Body Mass Index (BMI) 14.0 Intake & Output: Intake and Output for Last 24 Hours 12/07/23 12/08/23 12/09/23 23:59 23:59 23:59 Intake Total 1000 / 1000 2088.33 / 2088.33 Output Total 200 / 200 530 / 530 Balance 800 / 800 1558.33 / 1558.33 Lab / Micro Data 12/09/23 06:30 12/09/23 06:30 Labs: Laboratory Results - last 24 hr 12/07/23 21:50: Vitamin B12 487, Vitamin D 25-Hydroxy 48.9 12/08/23 03:37: Phosphorus 2.3 L, Folate 26.80, TSH 1.70, Free T4 1.32 12/08/23 16:08: POC Glucose 117 H 12/08/23 22:17: POC Glucose 96 12/09/23 06:24: POC Glucose 75 12/09/23 06:30: WBC 8.9, RBC 3.60 L, Hgb 11.0 L, Hct 34.8 L, MCV 96.7, MCH 30.6, MCHC 31.6 L, RDW Std Deviation 53.9 H, RDW Coeff of Ed 14.9 H, Plt Count 244, MPV 8.7, Immature Gran % (Auto) 0.700, Neut % (Auto) 88.2 H, Lymph % (Auto) 4.7 L, [place] % (Auto) 5.7, Eos % (Auto) 0.3, Baso % (Auto) 0.4, Absolute Neuts (auto) 7.9 H, Absolute Lymphs (auto) 0.42 L, Nucleated RBC % 0, ESR 24, Sodium 134 L, Potassium 3.4 L, Chloride 99, Carbon Dioxide 23.0, Anion Gap 12, BUN 11, Creatinine 0.66, Estim Creat Clear Calc 31.12, Est GFR (MDRD) Af Amer 109, Est GFR (MDRD) Non-Af 90, BUN/Creatinine Ratio 16.6, Glucose 79, Calcium 8.7, C-React Prot Ext Range 154.00 H, Rheumatoid Factor 280.0 H 12/09/23 11:33: POC Glucose 227 H Micro: Microbiology 12/07/23 19:30 Urine, Catheterized Urine Culture - Preliminary Culture exhibits no growth. 12/07/23 20:40 Mucosa - Nasopharyngeal Respiratory Panel (PCR) - Final 12/07/23 19:05 Mucosa - Nose SARS-CoV-2, Influenza & RSV (PCR) - Final Radiography Diagnostic Testing: Radiology Impression Chest/Abdomen/Pelvis CT 12/08/23 15:41 IMPRESSION: Circumferential gastric wall thickening could represent gastritis in the correct clinical setting. Cannot rule out malignancy. Age indeterminate severe compression deformities of T8-L3. Interstitial lung edema with trace bilateral pleural effusions. Electronically Signed: Clinton Gentile MD at 20:39 EDT , Physical Exam Narrative General: Patient sitting up in chair, able to answer questions appropriately today, very thin HEENT: Atraumatic, normocephalic Eyes: Anicteric, normal conjunctiva, extraocular movements grossly intact Neck: Supple Respiratory: Clear to auscultation bilaterally, normal respiratory effort Cardiovascular: Regular rate and rhythm GI: Soft, some tenderness present in epigastric region Extremities: No edema Musculoskeletal: Moving all extremities Neuro: No overt focal neurological deficits Skin: No rashes appreciated Psych: Cooperative Assessment & Plan Assessment/Plan (1) Acute metabolic encephalopathy: (2) Adult failure to thrive: (3) Diabetes: (4) Fever: (5) Rheumatoid arthritis: PLAN: Plan #Metabolic encephalopathy/Weakness -Patient awake but tired and will answer some questions -Will need to establish what patient's baseline is -Patient with one-time fever in ED, was not started on antibiotics as no bacterial infection located -It is felt that there may be some kind of viral illness -UA within normal limits, white count within normal limits, CMP unremarkable -Pro-Gio 0.29, unclear clinical significance given lack of other infectious etiology -Blood cultures pending -Did have negative respiratory panels -Interestingly ESR within normal limits, CRP was elevated at 97, will recheck these in the morning -Will DC baclofen as this could be contributing to patient being very tired and having decreased interaction today -Additionally patient was started on gabapentin which could be contributing to patient being tired and not as interactive this morning so we will discontinue and assess -Will also check folate and B12 and appears patient is on home Synthroid will check TSH and free T4 -PT/OT -12/08: Patient significantly improved today, still weak and a little bit tired but was able to answer questions appropriately, suspect there may have been underlying infection but also baclofen and gabapentin combination likely contributed #fever of unknown origin -UA unremarkable, lab workup unremarkable -Pro-Gio very mildly elevated at 0.29, unclear significance -No further fevers despite no antibiotics -Awaiting cultures -Viral panel negative -If any further antibiotics may CT chest and abdomen and start antibiotics -Patient status post IV fluids -12/08: Awaiting cultures, CRP had gone up but patient now started on antibiotics and has had no further fevers and mental status vastly improved from yesterday since starting antibiotics. Only complaint the patient endorses is upper abdominal pain and CT chest abdomen pelvis with contrast to evaluate for underlying cause of infection showed gastritis but cannot rule out malignancy, do not think this would account for her fever however. Patient does have RA and has elevated CRP and rheumatoid factor however would not expect a temperature as high as 101.5 to be purely from her RA especially given that she improved with antibiotics and she has no joint pain or other symptoms of RA flare. If no infection found inflammatory markers continue to increase can consider treating with steroids however given high fevers and altered mental status on presentation that improved with antibiotics hesitant to start glucocorticoids at this point #?Gastritis -CT showed gastritis but cannot rule out malignancy -Discussed with GI and it was felt reasonable to consider endoscopy on Monday given the concern for malignancy #Type 2 diabetes mellitus -Glucose checks and sliding scale insulin -12/08: Glucose variable, continue sliding scale insulin, if she ends up on steroids may need to increase scale # Rheumatoid arthritis/Chronic pain -Not on any RA medications it appears -Continue lidocaine patches -Tylenol as needed -Given mental status will DC baclofen and gabapentin -12/08: Only reported upper abdominal pain and no other pain, continue home gabapentin and baclofen, elevated rheumatoid factor and CRP, unclear if infection and/or RA flare the patient clinically improved with antibiotics and has not spiked a further temperature, management as above. Other autoimmune labs pending #Hypothyroidism -Continue Synthroid -12/08: Synthroid resumed # Low BMI -BMI 14.0 -[place] diet -Meal protein supplementation #DVT ppx: Lovenox subcu Chrissie Javier MD Time spent in the patient's overall evaluation,decision-making process, review of diagnostic data, adjustment of management, discussion with other providers, nursing nursing and ancillary staff involved in patient's care documentation, 40 Minutes Charges/Coding Visit Charges Inpatient E&M: 91060 Subs Hosp L2
--- NOTE | 2023-12-09 13:42 | CASEMGMT ---
Addendum entered by Kassandra Peter 12/09/23 15:41: Social Work Referral sent to [facility] via [facility], GERRY to follow up on Monday. MAGGY Mccallum Original Note: Social Work SW called pt's brother Ed in regard to SNF choices. Ed states his Alysa was just here and did not see the list in the room. SW explained can reprint and put a new list in the room. Ed put the phone on speaker, spoke w/Ed and Alysa together. Alysa asked SW to review the SNF list over the phone. SW reviewed the list w/Ed and Alysa on the phone, read them the star ratings as well. They would like a referral sent to [facility], at this time they cannot come up with a second choice. Alysa mentioned [facility], SW double checked the [employer] website, it does not appear that [facility] is in network w/[employer]. SW explained this to Alysa. SW explained we will send a referral to [facility], and if [facility] is not able to take pt, SW will call family back Monday for additional choices. Alysa and Ed state understanding. SW did also explain we will go to [facility] to see if they can get a precert. Ed and Alysa are not sure yet about if this would be short or penitentiary. Alysa also asked about hospice, but states at this time they want to proceed with seeing if [employer] will authorize pt to go to [facility] for rehab. GERRY will send referral to [facility] today, will continue to follow. MAGGY Mccallum
[2023-12-09] MEDS: Potassium Chloride 10mEq/100mL 10 MEQ/100 ML IV.SOLN. 100 MEQ IV BOLUS ×2 (15:47→17:11)
[2023-12-09] MEDS: Acetaminophen 650 MG Suppository RC (16:14)
[2023-12-09] MEDS: 0.9% Normal Saline (1000mL) 1,000 ML 75 ML IV (16:35)
[2023-12-09 16:39] LABS: Bedside Glucose 255 mg/dL (74-106)
--- NOTE | 2023-12-09 17:17 | PCM.HOSP.N ---
Hospitalist Note Received message the patient had a high temperature and was more tired. Patient given rectal Tylenol and I evaluated. Patient is tired but woke up and answers my questions appropriately, had had some slight complaints of upper abdominal/epigastric pain which correlated with CT scan findings, presently has no new complaints. Did not report any headache or changes in vision, did not report any stiff neck. Cultures pending already on vancomycin and cefepime given her penicillin allergy. Patient with no elevated white blood cell count, vitals otherwise stable, aside from inflammatory markers workup is fairly benign. Discussed with patient regarding how aggressive she would like to be with care (i.e. we ended up needing to do something like an LP and or neurology and or transfer to another facility) and she deferred to Alysa. Call number on file and spoke with Ed about the situation and options and he also recommended discussing with Alysa, called around at [phone] her cell phone and discussed that despite current management patient had another high temperature and of unclear etiology. Discussed that if no source is found we may need to do something like a lumbar puncture and get neurology involved and depending on what we do or do not find may end up needing transfer. Alysa said she did not think that the patient would want anything aggressive or invasive including lumbar puncture and would not want transferred to a tertiary facility. Discussed broadening antibiotic coverage and giving Tylenol for fever and awaiting cultures and that we would need to discuss goals of care if patient does not improve. She is comfortable with plan of adding antibiotic and continuing present management and reevaluating depending on patient's clinical status which is reasonable. Confirmed that they would not want a lumbar puncture, neurology consult, or transfer to tertiary facility if necessary.
[2023-12-09] MEDS: Pantoprazole Sodium 40 MG in 0.9% Normal Saline (100mL MB+) 100 ML 100 MG IV (17:29)
[2023-12-09] MEDS: MELATONIN 10 MG TABLET PO (20:24)
[2023-12-09] MEDS: Pantoprazole Sodium 40 MG in 0.9% Normal Saline (100mL MB+) 100 ML 330 MG IV (20:25)
[2023-12-09] MEDS: Meropenem 1 GM in 0.9% Normal Saline (100mL MB+) 100 ML IV (20:25)
[2023-12-09] MEDS: Acetaminophen 325 MG Tablet 650 MG PO (20:36)
[2023-12-09 22:35] LABS: Bedside Glucose 277 mg/dL (74-106)
[2023-12-10] VITALS (10 sets, daily range): BP systolic 85–121; BP diastolic 47–61; PULSE 72–82; RESP 14–18; TEMP 36.4–37.7; O2SAT 94–100; BMI 14.6
[2023-12-10] MEDS: 0.9% Normal Saline (500mL Bag) 500 ML 999 ML IV (02:45)
[2023-12-10 05:26] LABS: Absolute Lymphocyte Count 0.49 X10^3/uL (0.83-4.51); Absolute Neutrophil Count 6.8 X10^3/uL (2.0-7.7); Basophil# 0.02 X10^3/uL; Basophil% 0.3 % (0-1); Eosinophil# 0.05 X10^3/uL; Eosinophils% 0.6 % (0-5); Hematocrit 31.2 % (37-47); Hemoglobin 10.2 g/dL (12.0-15.0); Lymphocyte # 0.49 X10^3/ul (0.83-4.51); Lymphocyte % 6.2 % (19-41); Mean Corp Hgb Conc 32.7 g/dL (32-36); Mean Corpuscular Hgb 31.6 pg (27.0-32.0); Mean Corpuscular Volume 96.6 fL (81-99); Mean Platelet Vol. 9.1 fl (6.2-12.0); Monocyte# 0.45 X10^3/uL; Monocyte% 5.7 % (0-10); NRBC Flagged by Analyzer 0 % (0-5); Neutrophil # 6.81 X10^3/uL (2.7-7.7); Neutrophil % 86.8 % (47-70); POSITIVE DIFFERENTIAL YES; Platelet Count 198 K/mm3 (150-450); Red Blood Count 3.23 M/mm3 (4.2-5.4); White Blood Count 7.9 K/mm3 (4.4-11.0)
[2023-12-10] MEDS: Acetaminophen 325 MG Tablet 650 MG PO ×2 (05:27→15:45)
[2023-12-10] MEDS: Timolol 0.5% 5ML OPTH.BTL 1 DRP EACH EYE ×2 (05:28→21:02)
[2023-12-10] MEDS: BRIMONIDINE 0.2% 5ML BOTTLE 1 DRP EACH EYE ×2 (05:28→17:19)
[2023-12-10] MEDS: Menthol/Lanolin/Calamine/Znox 113 GM Tube 1 APPLIC TOPICAL ×3 (05:28→21:01)
[2023-12-10] MEDS: Levothyroxine 25 MCG TABLET PO (05:28)
[2023-12-10 05:36] LABS: Anion Gap 6 (5-15); BUN 16 mg/dL (7-18); BUN/Creat Ratio 19.2 RATIO (10-20); Calcium,Total 8.3 mg/dL (8.5-10.1); Chloride 107 mmol/L (98-107); Creatinine, Serum 0.83 mg/dL (0.55-1.02); EST Glomerular Filtration Rate 69 mL/min (>60); Est Glom Filt Rate - Afr Amer 84 mL/min (>60); Estimated Creatinine Clearance 31.46 ml/min; Glucose 137 mg/dL (74-106); Potassium 3.5 mmol/L (3.5-5.1); Sodium Level 137 mmol/L (136-145)
[2023-12-10 06:40] LABS: Bedside Glucose 138 mg/dL (74-106)
[2023-12-10] MEDS: SimETHICONE 80 MG Chewable Tablet PO ×3 (08:56→21:02)
[2023-12-10] MEDS: Lidocaine 5% Patch 1 PATCH TOPICAL (08:56)
[2023-12-10] MEDS: Loratadine 10 MG Tablet PO (08:56)
[2023-12-10] MEDS: Lactulose 20 GM/30 ML UDC PO ×2 (08:56→21:00)
[2023-12-10] MEDS: Ensure Plus High Protein 120 ML LIQUID PO ×4 (08:58→20:59)
[2023-12-10] MEDS: Pantoprazole Sodium 40 MG in 0.9% Normal Saline (100mL MB+) 100 ML 330 MG IV ×2 (09:01→21:04)
[2023-12-10] MEDS: Enoxaparin 30 MG/0.3 ML Syringe SC (09:08)
[2023-12-10] MEDS: Meropenem 1 GM in 0.9% Normal Saline (100mL MB+) 100 ML IV ×2 (09:32→21:04)
--- NOTE | 2023-12-10 12:16 | PCM.PN.HOSP ---
Subjective Subjective Feels a bit better than yesterday, currently afebrile but had antibiotics broadened. Cultures are still negative Objective Data Objective Data Vital Signs: Vital Signs Temp Pulse Resp BP Pulse Ox O2 Del Method 97.9 F 82 14 92/48 L 94 Room Air 12/10/23 09:20 12/10/23 09:20 12/10/23 09:20 12/10/23 09:20 12/10/23 09:20 12/10/23 09:20 Oxygen Delivery Method Room Air Weight: 85 lb 8.63 oz Body Mass Index (BMI) 14.6 Intake & Output: Intake and Output for Last 24 Hours 12/09/23 12/10/23 12/11/23 03:59 03:59 03:59 Intake Total 2088.33 / 2088.33 1260 / 1260 1110 / 1110 Output Total 530 / 530 Balance 1558.33 / 1558.33 1260 / 1260 1110 / 1110 Lab / Micro Data 12/10/23 04:25 12/10/23 04:25 Labs: Laboratory Results - last 24 hr 12/09/23 16:20: POC Glucose 255 H 12/09/23 20:31: POC Glucose 277 H 12/10/23 04:25: WBC 7.9, RBC 3.23 L, Hgb 10.2 L, Hct 31.2 L, MCV 96.6, MCH 31.6, MCHC 32.7, RDW Std Deviation 54.0 H, RDW Coeff of Ed 15.0 H, Plt Count 198, MPV 9.1, Immature Gran % (Auto) 0.400, Neut % (Auto) 86.8 H, Lymph % (Auto) 6.2 L, [place] % (Auto) 5.7, Eos % (Auto) 0.6, Baso % (Auto) 0.3, Absolute Neuts (auto) 6.8, Absolute Lymphs (auto) 0.49 L, Nucleated RBC % 0, Sodium 137, Potassium 3.5, Chloride 107, Carbon Dioxide 24.0, Anion Gap 6, BUN 16, Creatinine 0.83, Estim Creat Clear Calc 31.46, Est GFR (MDRD) Af Amer 84, Est GFR (MDRD) Non-Af 69, BUN/Creatinine Ratio 19.2, Glucose 137 H, Calcium 8.3 L, C-React Prot Ext Range 150.00 H 12/10/23 06:20: POC Glucose 138 H Micro: Microbiology 12/07/23 19:30 Urine, Catheterized Urine Culture - Final Culture exhibits no growth. 12/07/23 18:53 Blood Culture (Wb) - Left Forearm Blood Culture - Preliminary No growth in 48 hours. 12/07/23 18:55 Blood Culture (Wb) - Right Forearm Blood Culture - Preliminary No growth in 48 hours. 12/07/23 20:40 Mucosa - Nasopharyngeal Respiratory Panel (PCR) - Final 12/07/23 19:05 Mucosa - Nose SARS-CoV-2, Influenza & RSV (PCR) - Final Physical Exam Narrative General: Alert, Oriented x3, Cooperative, No apparent distress HEENT: Atraumatic, PERRLA, EOMI, Normocephalic Oral: Moist Mucosa Neck: Supple, No JVD Lungs: Diminished, Normal air movement, No rhonchi, No wheeze, No rales Cardiovascular: Regular rate, Regular Rhythm, Normal S1, Normal S2, No murmurs Abdomen: Soft, Non Tender, Non-Distended, No Hepato-splenomegaly Extremities: No edema, Capillary Refill Less than 3 Seconds Skin: No rashes, No breakdown Musculoskeletal: No Tenderness to Palpation of Joints or Extremities Neurological: No focal neurological deficits, Motor Exam 5/5 strength throughout, Sensory exam intact to light touch and pain Psych/Mental Status: Normal Affect, Appropriate Assessment & Plan Assessment/Plan (1) Acute metabolic encephalopathy: (2) Adult failure to thrive: (3) Diabetes: (4) Fever: (5) Rheumatoid arthritis: PLAN: Plan #Metabolic encephalopathy/Weakness -Patient awake but tired and will answer some questions -Will need to establish what patient's baseline is -Patient with one-time fever in ED, was not started on antibiotics as no bacterial infection located -It is felt that there may be some kind of viral illness -UA within normal limits, white count within normal limits, CMP unremarkable -Pro-Gio 0.29, unclear clinical significance given lack of other infectious etiology -Blood cultures pending -Did have negative respiratory panels -Interestingly ESR within normal limits, CRP was elevated at 97, will recheck these in the morning -Will DC baclofen as this could be contributing to patient being very tired and having decreased interaction today -Additionally patient was started on gabapentin which could be contributing to patient being tired and not as interactive this morning so we will discontinue and assess -Will also check folate and B12 and appears patient is on home Synthroid will check TSH and free T4 -PT/OT -12/08: Patient significantly improved today, still weak and a little bit tired but was able to answer questions appropriately, suspect there may have been underlying infection but also baclofen and gabapentin combination likely contributed 12/10/2023: She is ANO x 3 does not appear to be confused currently. Unclear as to the etiology of her fevers yesterday #fever of unknown origin -UA unremarkable, lab workup unremarkable -Pro-Gio very mildly elevated at 0.29, unclear significance -No further fevers despite no antibiotics -Awaiting cultures -Viral panel negative -If any further antibiotics may CT chest and abdomen and start antibiotics -Patient status post IV fluids -12/08: Awaiting cultures, CRP had gone up but patient now started on antibiotics and has had no further fevers and mental status vastly improved from yesterday since starting antibiotics. Only complaint the patient endorses is upper abdominal pain and CT chest abdomen pelvis with contrast to evaluate for underlying cause of infection showed gastritis but cannot rule out malignancy, do not think this would account for her fever however. Patient does have RA and has elevated CRP and rheumatoid factor however would not expect a temperature as high as 101.5 to be purely from her RA especially given that she improved with antibiotics and she has no joint pain or other symptoms of RA flare. If no infection found inflammatory markers continue to increase can consider treating with steroids however given high fevers and altered mental status on presentation that improved with antibiotics hesitant to start glucocorticoids at this point 12/10/2023: Currently afebrile continue with broad-spectrum antibiotics. Per previous physicians note would not want to be transferred to a tertiary care center for an LP #?Gastritis -CT showed gastritis but cannot rule out malignancy -Discussed with GI and it was felt reasonable to consider endoscopy on Monday given the concern for malignancy #Type 2 diabetes mellitus -Glucose checks and sliding scale insulin -12/08: Glucose variable, continue sliding scale insulin, if she ends up on steroids may need to increase scale # Rheumatoid arthritis/Chronic pain -Not on any RA medications it appears -Continue lidocaine patches -Tylenol as needed -Given mental status will DC baclofen and gabapentin -12/08: Only reported upper abdominal pain and no other pain, continue home gabapentin and baclofen, elevated rheumatoid factor and CRP, unclear if infection and/or RA flare the patient clinically improved with antibiotics and has not spiked a further temperature, management as above. Other autoimmune labs pending #Hypothyroidism -Continue Synthroid -12/08: Synthroid resumed # Low BMI -BMI 14.0 -[place] diet -Meal protein supplementation DVT: Lovenox Charges/Coding Visit Charges Inpatient E&M: 38167 Subs Hosp L2
[2023-12-10] MEDS: Insulin Lispro 100 UNIT/ML INSULN.PEN SC ×3 (12:22→21:19)
[2023-12-10 12:38] LABS: Bedside Glucose 232 mg/dL (74-106)
[2023-12-10 14:06] LABS: Erythrocyte Sedimentation Rate 12 mm/hr (0-30)
[2023-12-10 17:32] LABS: Bedside Glucose 298 mg/dL (74-106)
[2023-12-10] MEDS: MELATONIN 10 MG TABLET PO (21:02)
[2023-12-10 22:41] LABS: Bedside Glucose 286 mg/dL (74-106)
[2023-12-11] VITALS (14 sets, daily range): BP systolic 87–125; BP diastolic 48–67; PULSE 74–91; RESP 16–18; TEMP 36.6–37.3; O2SAT 93–100; BMI 14.8
[2023-12-11] MEDS: Timolol 0.5% 5ML OPTH.BTL 1 DRP EACH EYE ×2 (05:45→21:08)
[2023-12-11] MEDS: Menthol/Lanolin/Calamine/Znox 113 GM Tube 1 APPLIC TOPICAL ×3 (05:45→21:08)
[2023-12-11] MEDS: BRIMONIDINE 0.2% 5ML BOTTLE 1 DRP EACH EYE ×2 (05:46→21:08)
--- NOTE | 2023-12-11 05:55 | EKG12_ITS ---
Test Reason : PRE OP Blood Pressure : / mmHG Vent. Rate : 087 BPM Atrial Rate : 087 BPM P-R Int : 120 ms QRS Dur : 080 ms QT Int : 328 ms P-R-T Axes : 033 032 044 degrees QTc Int : 394 ms Normal sinus rhythm Normal ECG When compared with ECG of 25-MAY-2023 15:53, No significant change was found Confirmed by IRINA HARRY, SANAZ ([id number]), design editor KALE RHODES ([id number]) on 12/12/2023 5:55:18 AM Referred By: Confirmed By:SANAZ AREVALO MD
[2023-12-11 05:59] LABS: Absolute Lymphocyte Count 1.02 X10^3/uL (0.83-4.51); Absolute Neutrophil Count 7.1 X10^3/uL (2.0-7.7); Basophil# 0.01 X10^3/uL; Basophil% 0.1 % (0-1); Eosinophil# 0.17 X10^3/uL; Eosinophils% 1.9 % (0-5); Hematocrit 31.7 % (37-47); Hemoglobin 10.4 g/dL (12.0-15.0); Lymphocyte # 1.02 X10^3/ul (0.83-4.51); Lymphocyte % 11.6 % (19-41); Mean Corp Hgb Conc 32.8 g/dL (32-36); Mean Corpuscular Hgb 31.4 pg (27.0-32.0); Mean Corpuscular Volume 95.8 fL (81-99); Mean Platelet Vol. 9.2 fl (6.2-12.0); Monocyte# 0.45 X10^3/uL; Monocyte% 5.1 % (0-10); NRBC Flagged by Analyzer 0 % (0-5); Neutrophil # 7.09 X10^3/uL (2.7-7.7); Neutrophil % 80.7 % (47-70); Platelet Count 207 K/mm3 (150-450); RBC Distribution Width CV 15.3 % (11.6-14.6); RBC Distribution Width SD 54.1 fl (35.1-43.9); Red Blood Count 3.31 M/mm3 (4.2-5.4); White Blood Count 8.8 K/mm3 (4.4-11.0)
[2023-12-11 06:14] LABS: Anion Gap 7 (5-15); BUN 18 mg/dL (7-18); Calcium,Total 8.9 mg/dL (8.5-10.1); Chloride 106 mmol/L (98-107); Creatinine, Serum 0.72 mg/dL (0.55-1.02); EST Glomerular Filtration Rate 82 mL/min (>60); Est Glom Filt Rate - Afr Amer 99 mL/min (>60); Estimated Creatinine Clearance 32.97 ml/min; Glucose 157 mg/dL (74-106); Potassium 3.5 mmol/L (3.5-5.1); Sodium Level 137 mmol/L (136-145)
[2023-12-11 06:49] LABS: Partial Thromboplast Time 32.1 Seconds (24.1-36.2); Prothrombin Time (Protime)PT. 13.3 SECONDS (11.7-14.9)
[2023-12-11 07:01] LABS: Bedside Glucose 134 mg/dL (74-106)
[2023-12-11 07:54] LABS: Hemoglobin A1c 8.2 % (3.8-5.6)
--- NOTE | 2023-12-11 09:41 | CASEMGMT ---
Discharge Planning Updates sent to [facility] via [facility]. Karina Frey DC Planning Asst.
--- NOTE | 2023-12-11 09:48 | PN.HOSP_ITS ---
Subjective Subjective Seems to be doing better, remains afebrile still no clear etiology as to the bump in her temperature Objective Data Objective Data Vital Signs: Vital Signs Temp Pulse Resp BP Pulse Ox O2 Del Method 99.1 F 87 18 125/66 H 95 Room Air 12/11/23 03:17 12/11/23 03:17 12/11/23 03:17 12/11/23 03:17 12/11/23 07:01 12/11/23 07:01 Oxygen Delivery Method Room Air Weight: 86 lb 6.739 oz Body Mass Index (BMI) 14.8 Intake & Output: Intake and Output for Last 24 Hours 12/10/23 12/11/23 12/12/23 03:59 03:59 03:59 Intake Total 1260 / 1260 1760 / 1760 Balance 1260 / 1260 1760 / 1760 Lab / Micro Data 12/11/23 05:43 12/11/23 05:43 Labs: Laboratory Results - last 24 hr 12/10/23 04:25: ESR 12 12/10/23 12:19: POC Glucose 232 H 12/10/23 17:12: POC Glucose 298 H 12/10/23 21:19: POC Glucose 286 H 12/11/23 05:43: WBC 8.8, RBC 3.31 L, Hgb 10.4 L, Hct 31.7 L, MCV 95.8, MCH 31.4, MCHC 32.8, RDW Std Deviation 54.1 H, RDW Coeff of Ed 15.3 H, Plt Count 207, MPV 9.2, Immature Gran % (Auto) 0.600, Neut % (Auto) 80.7 H, Lymph % (Auto) 11.6 L, Edwards % (Auto) 5.1, Eos % (Auto) 1.9, Baso % (Auto) 0.1, Absolute Neuts (auto) 7.1, Absolute Lymphs (auto) 1.02, Nucleated RBC % 0, PT 13.3, INR 1.0, APTT 32.1, Sodium 137, Potassium 3.5, Chloride 106, Carbon Dioxide 24.0, Anion Gap 7, BUN 18, Creatinine 0.72, Estim Creat Clear Calc 32.97, Est GFR (MDRD) Af Amer 99, Est GFR (MDRD) Non-Af 82, BUN/Creatinine Ratio 25.0 H, Glucose 157 H, H emoglobin A1c 8.2 H, Calcium 8.9, Blood Type A NEGATIVE, Antibody Screen NEGATIVE 12/11/23 06:39: POC Glucose 134 H Micro: Microbiology 12/07/23 19:30 Urine, Catheterized Urine Culture - Final Culture exhibits no growth. 12/07/23 18:53 Blood Culture (Wb) - Left Forearm Blood Culture - Preliminary No growth in 48 hours. 12/07/23 18:55 Blood Culture (Wb) - Right Forearm Blood Culture - Preliminary No growth in 48 hours. 12/07/23 20:40 Mucosa - Nasopharyngeal Respiratory Panel (PCR) - Final 12/07/23 19:05 Mucosa - Nose SARS-CoV-2, Influenza & RSV (PCR) - Final Physical Exam Narrative General: Alert, Oriented x3, Cooperative, No apparent distress HEENT: Atraumatic, PERRLA, EOMI, Normocephalic Oral: Moist Mucosa Neck: Supple, No JVD Lungs: Diminished, Normal air movement, No rhonchi, No wheeze, No rales Cardiovascular: Regular rate, Regular Rhythm, Normal S1, Normal S2, No murmurs Abdomen: Soft, Non Tender, Non-Distended, No Hepato-splenomegaly Extremities: No edema, Capillary Refill Less than 3 Seconds Skin: No rashes, No breakdown Musculoskeletal: No Tenderness to Palpation of Joints or Extremities Neurological: No focal neurological deficits, Motor Exam 5/5 strength throughout, Sensory exam intact to light touch and pain Psych/Mental Status: Normal Affect, Appropriate Assessment & Plan Assessment/Plan (1) Acute metabolic encephalopathy: (2) Adult failure to thrive: (3) Diabetes: (4) Fever: (5) Rheumatoid arthritis: PLAN: Plan #Metabolic encephalopathy/Weakness -Patient awake but tired and will answer some questions -Will need to establish what patient's baseline is -Patient with one-time fever in ED, was not started on antibiotics as no bacterial infection located -It is felt that there may be some kind of viral illness -UA within normal limits, white count within normal limits, CMP unremarkable -Pro-Gio 0.29, unclear clinical significance given lack of other infectious etiology -Blood cultures pending -Did have negative respiratory panels -Interestingly ESR within normal limits, CRP was elevated at 97, will recheck these in the morning -Will DC baclofen as this could be contributing to patient being very tired and having decreased interaction today -Additionally patient was started on gabapentin which could be contributing to patient being tired and not as interactive this morning so we will discontinue and assess -Will also check folate and B12 and appears patient is on home Synthroid will check TSH and free T4 -PT/OT -12/08: Patient significantly improved today, still weak and a little bit tired but was able to answer questions appropriately, suspect there may have been underlying infection but also baclofen and gabapentin combination likely contributed 12/10/2023: She is ANO x 3 does not appear to be confused currently. Unclear as to the etiology of her fevers yesterday 12/11/2023: Remains alert and oriented x 3 and is not confused, she is not excited about the possibility of having to go to a senior care #fever of unknown origin -UA unremarkable, lab workup unremarkable -Pro-Gio very mildly elevated at 0.29, unclear significance -No further fevers despite no antibiotics -Awaiting cultures -Viral panel negative -If any further antibiotics may CT chest and abdomen and start antibiotics -Patient status post IV fluids -12/08: Awaiting cultures, CRP had gone up but patient now started on antibiotics and has had no further fevers and mental status vastly improved from yesterday since starting antibiotics. Only complaint the patient endorses is upper abdominal pain and CT chest abdomen pelvis with contrast to evaluate for underlying cause of infection showed gastritis but cannot rule out malignancy, do not think this would account for her fever however. Patient does have RA and has elevated CRP and rheumatoid factor however would not expect a temperature as high as 101.5 to be purely from her RA especially given that she improved with antibiotics and she has no joint pain or other symptoms of RA flare. If no infection found inflammatory markers continue to increase can consider treating with steroids however given high fevers and altered mental status on presentation that improved with antibiotics hesitant to start glucocorticoids at this point 12/10/2023: Currently afebrile continue with broad-spectrum antibiotics. Per previous physicians note would not want to be transferred to a tertiary care center for an LP 12/11/2023: Still no clear understanding of the fever of unknown origin all cultures have been negative we will continue with broad-spectrum antibiotics for the next 24 to 48 hours #?Gastritis -CT showed gastritis but cannot rule out malignancy -Discussed with GI and it was felt reasonable to consider endoscopy on Monday given the concern for malignancy 12/11/2023: Planning for EGD today to determine the possibility of malignancy #Type 2 diabetes mellitus -Glucose checks and sliding scale insulin -12/08: Glucose variable, continue sliding scale insulin, if she ends up on steroids may need to increase scale # Rheumatoid arthritis/Chronic pain -Not on any RA medications it appears -Continue lidocaine patches -Tylenol as needed -Given mental status will DC baclofen and gabapentin -12/08: Only reported upper abdominal pain and no other pain, continue home gabapentin and baclofen, elevated rheumatoid factor and CRP, unclear if infection and/or RA flare the patient clinically improved with antibiotics and has not spiked a further temperature, management as above. Other autoimmune labs pending #Hypothyroidism -Continue Synthroid -12/08: Synthroid resumed # Low BMI -BMI 14.0 -[place] diet -Meal protein supplementation DVT: Lovenox Charges/Coding Visit Charges Inpatient E&M: 27059 Subs Hosp L2
--- NOTE | 2023-12-11 09:59 | CASEMGMT ---
Discharge Planning [facility] has accepted patient and will start precert. Karina Frey DC Planning Asst.
--- NOTE | 2023-12-11 10:04 | CASEMGMT ---
GERRY called patient's brother Ed and let him know [facility] accepted patient. He confirmed this is still their first choice. Plan: d/c to [facility] pending insurance approval. Joanne TERESA
--- NOTE | 2023-12-11 10:56 | NURSING ---
informed patient & family of plan for egd@1919, voiced understanding of procedure consent signed
--- NOTE | 2023-12-11 11:43 | PRE.ANES_ITS ---
ASA Classification* ASA Classification ASA Classification: 3 and E Assessment & Plan Anesthesia* Anesthesia Assessment Anesthesia Assessment: Discussed sedation and/or anesthesia options, risks, benefits, and alternatives with patient/parents/legal guardian/POA. Questions invited. The patient/parents/legal guardian/POA seems to understand and agrees to proceed with anesthesia plan. Reviewed the physical assessment, medical history, allergy history and patient home medications list prior to surgery/procedure/anesthetic and documented any changes. Performed airway and anesthesia risk assessments. Anesthesia Type Anesthesia Type: MAC Anesthesia Focused Assessment* Temperature: 98.3 F Pulse Rate: 78 Blood Pressure: 115/62 Respiratory Rate: 16 Pulse Ox: 94 Airway Assessment Mouth opens: >3 cm Mallampati Score: II Focused Labs Anesthesia Preop lab: CBC WBC 8.8 K/mm3 (4.4-11.0) 12/11/23 05:43 RBC 3.31 M/mm3 (4.2-5.4) L 12/11/23 05:43 Hgb 10.4 g/dL (12.0-15.0) L 12/11/23 05:43 Hct 31.7 % (37-47) L 12/11/23 05:43 Plt Count 207 K/mm3 (150-450) 12/11/23 05:43 CHEMISTRY Potassium 3.5 mmol/L (3.5-5.1) 12/11/23 05:43 Sodium 137 mmol/L (136-145) 12/11/23 05:43 Magnesium 2.0 mg/dL (1.6-2.6) 05/25/23 18:05 Phosphorus 2.3 mg/dL (2.5-4.9) L 12/08/23 03:37 BUN 18 mg/dL (7-18) 12/11/23 05:43 Creatinine 0.72 mg/dL (0.55-1.02) 12/11/23 05:43 Glucose 157 mg/dL (74-106) H 12/11/23 05:43 POC Glucose 134 mg/dL (74-106) H 12/11/23 06:39 TSH 1.70 uIU/mL (0.358-3.74) 12/08/23 03:37 COAG PT 13.3 SECONDS (11.7-14.9) 12/11/23 05:43 Pre-Assessment Diagnosis/Proposed Procedure Planned Operative Procedure(s): egd Anesthesia History Anesthesia History - insurance professional: Anesthesia History - insurance professional Hx Hospitalization Yes: 05/2023 REHAB FOR FTT 06/23/23 09:52 Any Problems With Anesthesia No 06/23/23 09:52 Cholinesterase deficiency No 06/23/23 09:52 You/Your Family Experience No 06/23/23 09:52 fever (hyperthermia) with Relationship Recent Exposure to Contagious No 06/26/23 11:10 Disease Does patient have nerve No 06/23/23 09:52 stimulator Patient instructed to have device shut off --Does patient have Pacemaker or ICD? When Was Last Pacemaker Check QUESTION #4 FULL TEXT: You/Your Family Experience fever (hyperthermia) with Anesthesia Last Oral Intake Last Oral intake: Last Oral Intake NPO since Meds taken in AM with sips of water? Meds patient instructed to take am of surgery PONV PONV - insurance professional: PONV - insurance professional Female HX of Motion Sickness HX of N/V After Surgery Non-Smoker Duration of Surgery greater than 60 minutes Number of Risk Factors PONV Score Height & Weight Height & Weight: Anesthesia: Height & Weight Height 5 ft 4 in 12/08/23 11:24 Weight: 39.2 kg 12/11/23 05:45 Body Mass Index (BMI) 14.8 12/11/23 05:45 Respiratory Assessment Respiratory Assessment - insurance professional: Respiratory Tract Infection Hx - insurance professional Hx Respiratory Tract Infection Yes: COVID 05/2023. RESOLVED 06/23/23 09:52 STOP Sleep Apnea STOP Sleep Apnea - insurance professional: STOP Sleep Apnea - insurance professional Hx Hypertension Yes 12/08/23 14:15 Hx Sleep Apnea No 12/07/23 22:05 CPAP No 05/25/23 20:52 BIPAP No 05/25/23 20:52 Do you snore loudly (louder Yes 12/07/23 22:05 than talking or can be heard Do you often feel tired/ Yes 12/07/23 22:05 fatigued/ sleepy during daytime? Has anyone observed you stop No 12/07/23 22:05 breathing during sleep? STOP Results Positive 12/07/23 22:05 QUESTION #5 FULL TEXT : Do you snore loudly (louder than talking or can be heard through closed doors)? 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 Specify any problems Hx of Preganancy in last 3 No 12/07/23 22:05 Months Nurse Filling Out Transfusion PFREY 12/07/23 22:05 & Questions: Date: 12/07/23 12/07/23 22:05 Time: 22:17 12/07/23 22:05 Patient unable to answer at this time (ie. confused, unrespo /Reproduction History /Reproductive History - insurance professional: /Reproductive Hx- insurance professional Hx Now Gestational Age (in weeks): EDC: Hx Hx Para Hx Section SAB No 06/23/23 09:52 Active Medications Active Medications: Current Medications Generic Name Dose Route Start Last Admin Trade Name Freq PRN Reason Stop Dose Admin Acetaminophen 650 mg 12/07/23 22:04 12/10/23 15:45 Acetaminophen 325 Mg Tablet PO 650 mg Q4H PRN PRN Administration Fever, pain 1-10/10 Acetaminophen 650 mg 12/09/23 15:41 12/09/23 16:14 Acetaminophen 650 Mg Suppository RC 650 mg Q4H PRN PRN Administration HEADACHE/FEVER (T>100F) Al Hydroxide/Mg Hydroxide 30 ml 12/07/23 22:04 Mag Hydrox/Al Hydrox/Simeth 30 Ml Udc PO Q6H PRN PRN Gastric Burning Albuterol Sulfate 2.5 mg 12/07/23 22:04 Albuterol 2.5 Mg/3 Ml Vial.Neb. INHALATION Q2H PRN PRN Dyspnea, wheezing Brimonidine Tartrate 1 drp 12/08/23 06:00 12/11/23 05:46 Brimonidine 0.2% 5ml Bottle EACH EYE 1 drp 0600,1800 [facility] Administration Calamine/Phenol 1 applic 12/08/23 06:00 12/11/23 05:45 Menthol/Lanolin/Calamine/Znox 113 Gm Tube TOPICAL 1 applic TID [facility] Administration Protocol Enoxaparin Sodium 40 mg 12/11/23 10:00 Enoxaparin 40 Mg/0.4 Ml Syringe SC DAILY [facility] Guaifenesin 20 ml 12/07/23 22:04 Guaifenesin 10 Ml Udc (200mg/10ml) PO Q4H PRN PRN COUGH Hydralazine HCl 10 mg 12/07/23 22:04 Hydralazine 20 Mg/Ml Vial IV Q4H PRN PRN SBP > 160 Protocol Sodium Chloride 250 mls @ 15 mls/hr 12/07/23 22:25 IV .[id number] PRN Additional IVPB Infusion Sodium Chloride 250 mls @ 15 mls/hr 12/07/23 22:25 IV .[id number] PRN Saline Flush Pantoprazole Sodium 40 mg/ 110 mls @ 330 mls/hr 12/09/23 22:00 12/10/23 21:26 Sodium Chloride IV Infused Q12 [facility] Infusion Meropenem 1 gm/ Sodium 120 mls @ 33 mls/hr 12/09/23 18:00 12/11/23 00:45 Chloride IV Infused Q12 [facility] Infusion Lactated Ringer's 1,000 mls @ 15 mls/hr 12/11/23 11:45 IV .Q48H [facility] Insulin Human Lispro 0 unit 12/07/23 22:04 12/11/23 06:40 Insulin Lispro 100 Unit/Ml Insuln.Pen SC Not Given ACHS [facility] Protocol Lactulose 20 gm 12/07/23 22:04 12/10/23 21:00 Lactulose 20 Gm/30 Ml Udc PO 20 gm BID [facility] Administration Levothyroxine Sodium 25 mcg 12/09/23 06:00 12/11/23 05:47 Levothyroxine 25 Mcg Tablet PO Not Given DAILY@0600 [facility] Lidocaine 1 patch 12/08/23 10:00 12/10/23 21:21 Lidocaine 5% Patch TOPICAL Not Given BID [facility] Protocol Loratadine 10 mg 12/09/23 10:00 12/10/23 08:56 Loratadine 10 Mg Tablet PO 10 mg DAILY [facility] Administration Melatonin 10 mg 12/08/23 22:00 12/10/23 21:02 Melatonin 10 Mg Tablet PO 10 mg QHS [facility] Administration Nutritional Formula (Lactose Free) 120 ml 12/08/23 14:00 12/10/23 20:59 Ensure Plus High Protein 120 Ml Liquid PO 120 ml 4X/DAY [facility] Administration Ondansetron HCl 4 mg 12/07/23 22:04 Ondansetron 4 Mg/2 Ml Vial IV Q8H PRN PRN NAUSEA/VOMITING Simethicone 80 mg 12/07/23 22:04 12/10/23 21:02 Simethicone 80 Mg Chewable Tablet PO 80 mg PCHS [facility] Administration Sodium Chloride 10 - 40 ml 12/07/23 22:25 12/08/23 22:29 0.9% Saline Lock 10 Ml Syringe IV 10 ml UD PRN Administration SALINE FLUSH Timolol Maleate 1 drp 12/08/23 06:00 12/11/23 05:45 Timolol 0.5% 5ml Opth.Btl EACH EYE 1 drp 0600,1800 [facility] Administration PFSH Medical History COVID custodial resident Loss of hearing Wears glasses Wears dentures Post-menopausal Cancer Forgetfulness Anxiety Open wound Pain Walker as ambulation aid Bladder disease Injury of back Syncope FTT (failure to thrive) in adult History of diverticulitis Chronic constipation Non-smoker History of pain when walking History of echocardiogram Hypertension Iron deficiency anemia Osteoarthritis Rheumatoid arthritis High cholesterol Diabetes Home Medications ?Medication ?Instructions ?Recorded ?Last Taken ?Type cholecalciferol (vitamin D3) 25 2,000 unit PO DAILY SUPPLEMENT 07/25/14 12/06/23 History mcg (1,000 unit) tablet (Vitamin D3) baclofen 10 mg tablet 10 mg PO QHS MUSCLE SPASMS 05/25/23 12/06/23 20:00 History acetaminophen 500 mg tablet 1,000 mg PO BID 12/07/23 12/06/23 History levothyroxine 25 mcg tablet 25 mcg PO DAILY 12/07/23 12/07/23 06:00 History Allergy/AdvReac Type Severity Reaction Status Date / Time alendronate sodium (From Allergy Anaphylaxis Verified 12/07/23 18:26 Fosamax) Penicillins Allergy Swelling Verified 12/07/23 18:26 Family History Mother Alzheimer disease Father Myocardial infarction Hypertension Heart disease CAD (coronary artery disease) Surgical History Hx of colonoscopy History of surgery on arm S/P ORIF (open reduction internal fixation) fracture Social History household members: none Smoking Status: Never smoker alcohol intake: never substance use type: does not use Review of Systems (Anesthesia) ROS Narrative System reviewed and no additional complaints, except as documented.
[2023-12-11] MEDS: 0.9% Normal Saline (1000mL) 1,000 ML 15 ML IV (11:57)
--- NOTE | 2023-12-11 12:50 | EX.PCM.CON.G ---
HPI Consult Data Date of Consult: 12/11/23 HPI Narrative Reason for Consultation: Abnormal imaging HPI Narrative: MARTHA ENGEL, is a 83 F who presented to the ED with altered mental status. The daughter does come over and help the patient with certain things. Today, the patient was not acting herself, the patient could barely get up off the chair. They did notice the patient felt hot. The patient was more confused today. The patient states he just generally does not feel well. She has a past medical history of Chronic anemia/Fe deficiency anemia, Anxiety and Depression, HTN, HLD, RA, Diabetes mellitus type II, Chronic back pain, Chronic constipation who presents to the [facility] ED on 12/07/23 with family reporting that the patient was significantly weak with difficulty even getting up out of a chair and subjectively felt warm and was mildly confused with general fatigue and malaise prompting family to bring patient in for ED evaluation. Workup in the ED included T97.4, heart 110, BP 161/97, respiratory rate 17, 97% on room air with Tmax in the ED 101.5, most recent vital signs T90.4, heart rate 100, BP 125/56, respiratory rate 20, 97% on room air, CBC with WBC 8.6, hemoglobin 11.2, MCV 96.6, platelet 293 without marked shift with lymphopenia, unremarkable coags, CMP with sodium 130, chloride 97, BUN/creatinine 12/0.82, GFR 70, glucose 282, hepatic profile not marked appearing, lactic acid 1.6, blood culture x 2 CT scan of the chest abdomen pelvis: Revealed some circumferential wall thickening in the gastric antrum and gastric body with clinical correlation for gastritis and cannot rule out malignancy. Therefore I was consulted for endoscopic evaluation of patient's abnormal CT scan. She does have some abdominal pain and has been having some anorexia without vomiting. [facility] Medical History COVID intermediate resident Loss of hearing Wears glasses Wears dentures Post-menopausal Cancer Forgetfulness Anxiety Open wound Pain Walker as ambulation aid Bladder disease Injury of back Syncope FTT (failure to thrive) in adult History of diverticulitis Chronic constipation Non-smoker History of pain when walking History of echocardiogram Hypertension Iron deficiency anemia Osteoarthritis Rheumatoid arthritis High cholesterol Diabetes Home Medications ?Medication ?Instructions ?Recorded ?Last Taken ?Type cholecalciferol (vitamin D3) 25 2,000 unit PO DAILY SUPPLEMENT 07/25/14 12/06/23 History mcg (1,000 unit) tablet (Vitamin D3) baclofen 10 mg tablet 10 mg PO QHS MUSCLE SPASMS 05/25/23 12/06/23 20:00 History acetaminophen 500 mg tablet 1,000 mg PO BID 12/07/23 12/06/23 History levothyroxine 25 mcg tablet 25 mcg PO DAILY 12/07/23 12/07/23 06:00 History Allergy/AdvReac Type Severity Reaction Status Date / Time alendronate sodium (From Allergy Anaphylaxis Verified 12/07/23 18:26 Fosamax) Penicillins Allergy Swelling Verified 12/07/23 18:26 Family History Mother Alzheimer disease Father Myocardial infarction Hypertension Heart disease CAD (coronary artery disease) Surgical History Hx of colonoscopy History of surgery on arm S/P ORIF (open reduction internal fixation) fracture Social History household members: none Smoking Status: Never smoker alcohol intake: never substance use type: does not use ROS ROS Narrative Admission Review of Systems: CONSTITUTIONAL: No weight loss, fever, chills, + weakness or fatigue. HEENT: Eyes: No visual loss, blurred vision, double vision or yellow sclerae. Ears, Nose, Throat: No hearing loss, sneezing, congestion, runny nose or sore throat. SKIN: No rash or itching, lesions, wounds. CARDIOVASCULAR: No chest pain, chest pressure or chest discomfort, palpitations, edema, orthopnea, syncopal events. RESPIRATORY: No shortness of breath, cough or sputum, wheezing, hemoptysis. GASTROINTESTINAL: +. No anorexia, nausea, vomiting or diarrhea, abdominal pain, melena, BRBPR. GENITOURINARY: No dysuria, frequency, urgency or retention. NEUROLOGICAL: + Family reported mild cognitive impairment. No headache, dizziness, syncope, paralysis, ataxia, numbness or tingling in the extremities, focal weakness, change in bowel or bladder control, seizure. MUSCULOSKELETAL: + muscle, back pain, joint pain or stiffness. HEMATOLOGIC: + Chronic anemia, easy bleeding/bruising. LYMPHATICS: No enlarged nodes. No history of splenectomy. PSYCHIATRIC: + History of anxiety and depression. ENDOCRINOLOGIC: No reports of sweating, cold or heat intolerance. No polyuria or polydipsia. ALLERGIES: + History of anaphylaxis. Physical Exam Narrative General: Alert, Oriented x3, Cooperative, No apparent distress HEENT: Atraumatic, PERRLA, EOMI, Normocephalic Oral: Moist Mucosa Neck: Supple, No JVD Lungs: Diminished, Normal air movement, No rhonchi, No wheeze, No rales Cardiovascular: Regular rate, Regular Rhythm, Normal S1, Normal S2, No murmurs Abdomen: Soft, Non Tender, Non-Distended, No Hepato-splenomegaly Extremities: No edema, Capillary Refill Less than 3 Seconds Skin: No rashes, No breakdown Musculoskeletal: No Tenderness to Palpation of Joints or Extremities Neurological: No focal neurological deficits, Motor Exam 5/5 strength throughout, Sensory exam intact to light touch and pain Psych/Mental Status: Normal Affect, Appropriate Lab / Micro Data 12/11/23 05:43 12/11/23 05:43 Labs: Laboratory Results - last 24 hr 12/10/23 04:25: ESR 12 12/10/23 17:12: POC Glucose 298 H 12/10/23 21:19: POC Glucose 286 H 12/11/23 05:43: WBC 8.8, RBC 3.31 L, Hgb 10.4 L, Hct 31.7 L, MCV 95.8, MCH 31.4, MCHC 32.8, RDW Std Deviation 54.1 H, RDW Coeff of Ed 15.3 H, Plt Count 207, MPV 9.2, Immature Gran % (Auto) 0.600, Neut % (Auto) 80.7 H, Lymph % (Auto) 11.6 L, [place] % (Auto) 5.1, Eos % (Auto) 1.9, Baso % (Auto) 0.1, Absolute Neuts (auto) 7.1, Absolute Lymphs (auto) 1.02, Nucleated RBC % 0, PT 13.3, INR 1.0, APTT 32.1, Sodium 137, Potassium 3.5, Chloride 106, Carbon Dioxide 24.0, Anion Gap 7, BUN 18, Creatinine 0.72, Estim Creat Clear Calc 32.97, Est GFR (MDRD) Af Amer 99, Est GFR (MDRD) Non-Af 82, BUN/Creatinine Ratio 25.0 H, Glucose 157 H, Hemoglobin A1c 8.2 H, Calcium 8.9, Blood Type A NEGATIVE, Antibody Screen NEGATIVE 12/11/23 06:39: POC Glucose 134 H Micro: Microbiology 12/07/23 19:30 Urine, Catheterized Urine Culture - Final Culture exhibits no growth. Assessment & Plan Assessment/Plan (1) Abnormal CT scan: PLAN: Differential diagnosis for theAbnormal CT scan would be peptic ulcer disease, H. pylori associated gastritis, neoplasia, medication induced gastritis. I agree that this would not make the patient develop a fever unless it was malignancy. So we will undergo evaluation of her upper GI tract. She was explained alternatives, risk, benefits include not withstanding bleeding, infection, sepsis, perforation, need for emergent urgent . She have an ASA of 3. Charges/Coding Visit Charges Inpatient E&M: 00433 Init Hosp L2
[2023-12-11 13:07] LABS: ANTINUCLEAR ANTIBODIES DIRECT Negative (Negative)
--- NOTE | 2023-12-11 13:24 | OP.CCLET_ITS ---
12/11/2023 Victor M Cochran MD [address] [place] [address] Re : Upper GI endoscopy procedure for Feli Root Dear Dr. Cochran This procedure was performed on Monday, December 11, 2023. My impressions and recommendations are as follows: Impressions : - Non-obstructing Schatzki ring. - Medium-sized hiatal hernia. - Normal first portion of the duodenum. - No specimens collected. Recommendations : - [facility]. - Resume regular diet. - Continue present medications. My findings are described in the full procedure note, which is enclosed. If I can be of further assistance, please feel free to contact me at . Sincerely, Varghese Rajan, 12/11/2023 1:24:22 PM This report has been signed electronically.
--- NOTE | 2023-12-11 13:24 | OP.EGD_ITS ---
Patient Name: Feli Garcias Procedure Date: 12/11/2023 1:09 PM Date of : 1940 Age: 83 Procedure: Upper GI endoscopy Indications: Epigastric abdominal pain Providers: Varghese Rajan DO Medicines: Monitored Anesthesia Care Patient Profile: This is an 83 year old female. Refer to note in patient chart for documentation of history and physical. Patient has symptoms of acute epigastric abdominal pain. Complications: No immediate complications. Procedure: Pre-Anesthesia Assessment: - Prior to the procedure, a History and Physical was performed, and patient medications and allergies were reviewed. The risks and benefits of the procedure and the sedation options and risks were discussed with the patient. All questions were answered and informed consent was obtained. Patient identification and proposed procedure were verified by the physician. Mental Status Examination: normal. Respiratory Examination: clear to auscultation. CV Examination: normal. Prophylactic Antibiotics: The patient does not require prophylactic antibiotics. Prior Anticoagulants: The patient has taken no anticoagulant or antiplatelet agents. ASA Grade Assessment: IV - A patient with severe systemic disease that is a constant threat to life. After reviewing the risks and benefits, the patient was deemed in satisfactory condition to undergo the procedure. The anesthesia plan was to use monitored anesthesia care (MAC). Immediately prior to administration of medications, the patient was re-assessed for adequacy to receive sedatives. The heart rate, respiratory rate, oxygen saturations, blood pressure, adequacy of pulmonary ventilation, and response to care were monitored throughout the procedure. The physical status of the patient was re-assessed after the procedure. After obtaining informed consent, the endoscope was passed under direct vision. Throughout the procedure, the patient's blood pressure, pulse, and oxygen saturations were monitored continuously. The Endoscope was introduced through the mouth, and advanced to the second part of duodenum. The upper GI endoscopy was accomplished without difficulty. The patient tolerated the procedure well. Scope In: 1:19:29 PM Scope Out: 1:21:44 PM Total Procedure Duration Time 0 hours 2 minutes 15 seconds Findings: A non-obstructing Schatzki ring was found in the lower third of the esophagus. A medium-sized hiatal hernia was present. No other significant abnormalities were identified in a careful examination of the stomach. The first portion of the duodenum was normal. Impression: - Non-obstructing Schatzki ring. - Medium-sized hiatal hernia. - Normal first portion of the duodenum. - No specimens collected. Recommendation: - [facility]. - Resume regular diet. - Continue present medications. Procedure Code(s): --- Professional --- 59997, Esophagogastroduodenoscopy, flexible, transoral; diagnostic, including collection of specimen(s) by brushing or washing, when performed (separate procedure) CPT copyright 2021 [employer]. All rights reserved. The codes documented in this report are preliminary and upon shovel loader operator review may be revised to meet current compliance requirements. Varghese Rajan DO 12/11/2023 1:24:22 PM This report has been signed electronically. Number of Addenda: 0 Note Initiated On: 12/11/2023 1:09 PM
--- NOTE | 2023-12-11 13:30 | PCM.POST.ANE ---
Anesthesia: Postop Eval I Current Vital Signs Temperature: 98.7 F Pulse Rate: 84 Blood Pressure: 94/52 Respiratory Rate: 16 Pulse Ox: 97 Oxygen Delivery Method: Room Air Assessment Airway patent: Yes Spontaneous unlabored respirations: Yes Mental status: Awake and Calm nausea: No Vomiting: No Anesthesia Complication: No Fluid Hydration Crystalloid volume administer (ml): 400 Total IV fluid infused: 400 Progress Note Anesthesia document: Postop Eval 1 completed: Yes
--- NOTE | 2023-12-11 13:44 | PCM.POSTANE2 ---
Anesthesia Postop Eval I Sum Postop Eval Completion status Anesthesia document: Postop Eval 1 completed: Yes Anesthesia Postop Eval I Summary Anesthesia Postop Eval I Summary: Anesthesia Postop Eval I: Assessment Summary Airway patent Yes 12/11/23 13:38 [email or web address] Spontaneous unlabored Yes 12/11/23 13:38 [email or web address] respirations Mental status Awake,Calm 12/11/23 13:38 [email or web address] nausea No 12/11/23 13:38 [email or web address] Vomiting No 12/11/23 13:38 [email or web address] Anesthesia Postop Eval I: Fluid Summary Crystalloid volume administer 400 12/11/23 13:38 [email or web address] (ml) Colloids volume administered ( ml) Blood Product volume administered (ml) Total IV fluid infused 400 12/11/23 13:38 [email or web address] Anesthesia Postop Eval I: Summary Notes Anesthesia Complication No 12/11/23 13:38 [email or web address] Anesthesia Complication Comment: Post-operative progress note Anesthesia: Postop Eval II Evaluation Mental status: Awake Pain Level: 0 nausea: No Vomiting: No
[2023-12-11] MEDS: 0.9% Normal Saline (250mL Bag) 250 ML 15 ML IV (14:08)
[2023-12-11] MEDS: Pantoprazole Sodium 40 MG in 0.9% Normal Saline (100mL MB+) 100 ML 330 MG IV ×2 (14:08→21:16)
[2023-12-11] MEDS: Meropenem 1 GM in 0.9% Normal Saline (100mL MB+) 100 ML IV ×2 (14:37→21:16)
[2023-12-11] MEDS: Lidocaine 5% Patch 1 PATCH TOPICAL ×2 (14:38→21:12)
[2023-12-11 17:15] LABS: Bedside Glucose 100 mg/dL (74-106)
[2023-12-11] MEDS: Acetaminophen 325 MG Tablet 650 MG PO (20:07)
[2023-12-11] MEDS: MELATONIN 10 MG TABLET PO (21:06)
[2023-12-11] MEDS: Lactulose 20 GM/30 ML UDC PO (21:06)
[2023-12-11] MEDS: SimETHICONE 80 MG Chewable Tablet PO (21:07)
[2023-12-11] MEDS: Ensure Plus High Protein 120 ML LIQUID PO (21:12)
[2023-12-11] MEDS: Insulin Lispro 100 UNIT/ML INSULN.PEN SC (21:25)
[2023-12-11 23:10] LABS: Bedside Glucose 215 mg/dL (74-106)
[2023-12-12 06:00] VITALS: BMI 15.2
[2023-12-12] MEDS: Levothyroxine 25 MCG TABLET PO (06:03)
[2023-12-12] MEDS: Menthol/Lanolin/Calamine/Znox 113 GM Tube 1 APPLIC TOPICAL ×3 (06:03→22:35)
[2023-12-12] MEDS: Timolol 0.5% 5ML OPTH.BTL 1 DRP EACH EYE ×2 (06:04→18:07)
[2023-12-12] MEDS: BRIMONIDINE 0.2% 5ML BOTTLE 1 DRP EACH EYE ×2 (06:05→18:07)
[2023-12-12 06:46] LABS: Absolute Lymphocyte Count 1.57 X10^3/uL (0.83-4.51); Absolute Neutrophil Count 7.6 X10^3/uL (2.0-7.7); Basophil# 0.02 X10^3/uL; Basophil% 0.2 % (0-1); Eosinophil# 0.23 X10^3/uL; Eosinophils% 2.3 % (0-5); Hematocrit 28.7 % (37-47); Hemoglobin 9.2 g/dL (12.0-15.0); Lymphocyte # 1.57 X10^3/ul (0.83-4.51); Mean Corp Hgb Conc 32.1 g/dL (32-36); Mean Corpuscular Hgb 30.9 pg (27.0-32.0); Mean Corpuscular Volume 96.3 fL (81-99); Mean Platelet Vol. 9.2 fl (6.2-12.0); Monocyte# 0.36 X10^3/uL; Monocyte% 3.7 % (0-10); NRBC Flagged by Analyzer 0 % (0-5); Neutrophil # 7.58 X10^3/uL (2.7-7.7); Neutrophil % 77.2 % (47-70); POSITIVE MORPHOLOGY YES; Platelet Count 220 K/mm3 (150-450); RBC Distribution Width CV 15.7 % (11.6-14.6); RBC Distribution Width SD 54.7 fl (35.1-43.9); Red Blood Count 2.98 M/mm3 (4.2-5.4); White Blood Count 9.8 K/mm3 (4.4-11.0)
[2023-12-12 06:52] LABS: Bedside Glucose 212 mg/dL (74-106)
[2023-12-12 06:57] LABS: Differential Indicated SCAN CRITERIA MET
[2023-12-12 07:22] LABS: Atypical Lymphocyte 1+ %
[2023-12-12 07:27] LABS: Anion Gap 4 (5-15); BUN 16 mg/dL (7-18); BUN/Creat Ratio 23.1 RATIO (10-20); Calcium,Total 8.3 mg/dL (8.5-10.1); Chloride 106 mmol/L (98-107); Creatinine, Serum 0.69 mg/dL (0.55-1.02); EST Glomerular Filtration Rate 86 mL/min (>60); Est Glom Filt Rate - Afr Amer 104 mL/min (>60); Estimated Creatinine Clearance 33.81 ml/min; Glucose 238 mg/dL (74-106); Potassium 3.5 mmol/L (3.5-5.1); Sodium Level 138 mmol/L (136-145)
[2023-12-12 07:29] VITALS: O2SAT 96
[2023-12-12 08:16] VITALS: BP 96/50; PULSE 78; RESP 18; TEMP 36.9; O2SAT 99
[2023-12-12] MEDS: Acetaminophen 325 MG Tablet 650 MG PO (08:28)
[2023-12-12] MEDS: SimETHICONE 80 MG Chewable Tablet PO ×4 (08:28→22:38)
[2023-12-12] MEDS: Loratadine 10 MG Tablet PO (08:28)
[2023-12-12] MEDS: Lactulose 20 GM/30 ML UDC PO ×2 (08:28→22:35)
[2023-12-12] MEDS: Lidocaine 5% Patch 1 PATCH TOPICAL ×2 (08:29→22:36)
[2023-12-12] MEDS: Ensure Plus High Protein 120 ML LIQUID PO ×2 (08:29→18:07)
[2023-12-12] MEDS: Meropenem 1 GM in 0.9% Normal Saline (100mL MB+) 100 ML IV ×2 (10:45→22:36)
[2023-12-12] MEDS: Pantoprazole Sodium 40 MG in 0.9% Normal Saline (100mL MB+) 100 ML 330 MG IV ×2 (10:45→22:37)
[2023-12-12 11:27] LABS: Bedside Glucose 297 mg/dL (74-106)
[2023-12-12] MEDS: Insulin Lispro 100 UNIT/ML INSULN.PEN SC ×3 (11:41→22:42)
--- NOTE | 2023-12-12 13:48 | CASEMGMT ---
HERNESTO CAMILO updated by hospitalist that patient is not sure she would like to go to SNF. HENRESTO CAMILO in to discuss discharge planning with patient. HERNESTO CAMILO reviewed progress with therapy and her brother's concerns with patient discharging to home as they are not going to be available to help patient when she is discharged. Patient agreeable that she will need help if she goes home. Patient voiced that she wants to be able to do things around her house on her own again and is agreeable that additional therapy at [facility] will help achieve her goals. Patient had no further questions or concenrs. HERNESTO CAMILO updated SW
[2023-12-12 14:29] VITALS: BP 122/63; PULSE 89; RESP 18; TEMP 36.4; O2SAT 99
--- NOTE | 2023-12-12 16:13 | PCM.PN.HOSP ---
Subjective Subjective No issues overnight, feeling better though little bit tired Objective Data Objective Data Vital Signs: Vital Signs Temp Pulse Resp BP Pulse Ox O2 Del Method 97.5 F L 89 18 122/63 H 99 Room Air 12/12/23 14:29 12/12/23 14:29 12/12/23 14:29 12/12/23 14:29 12/12/23 14:29 12/12/23 14:29 Oxygen Delivery Method Room Air Weight: 88 lb 10.013 oz Body Mass Index (BMI) 15.2 Intake & Output: Intake and Output for Last 24 Hours 12/11/23 12/12/23 12/13/23 03:59 03:59 03:59 Intake Total 1760 / 1760 809.5 / 809.5 710 / 710 Output Total 200 / 200 Balance 1760 / 1760 809.5 / 809.5 510 / 510 Lab / Micro Data 12/12/23 06:28 12/12/23 06:28 Labs: Laboratory Results - last 24 hr 12/09/23 06:30: JANY-1 Antibody Not Reportable, SS-A/Ro IgG Antibody Not Reportable, SS-B/La IgG Antibody Not Reportable, Sm (Estrella) Antibody Not Reportable, REAMING MACHINE OPERATOR FOR PLASTIC Antibody Not Reportable, Scl-70 Scleroderma Ab Not Reportable, Double Strand DNA Ab Not Reportable, Centromere B Antibody Not Reportable 12/11/23 16:58: POC Glucose 100 12/11/23 21:24: POC Glucose 215 H 12/12/23 06:07: POC Glucose 212 H 12/12/23 06:28: WBC 9.8, RBC 2.98 L, Hgb 9.2 L, Hct 28.7 L, MCV 96.3, MCH 30.9, MCHC 32.1, RDW Std Deviation 54.7 H, RDW Coeff of Ed 15.7 H, Plt Count 220, MPV 9.2, Immature Gran % (Auto) 0.600, Neut % (Auto) 77.2 H, Lymph % (Auto) 16.0 L, [place] % (Auto) 3.7, Eos % (Auto) 2.3, Baso % (Auto) 0.2, Absolute Neuts (auto) 7.6, Absolute Lymphs (auto) 1.57, Nucleated RBC % 0, Atypical Lymphocytes 1+, Sodium 138, Potassium 3.5, Chloride 106, Carbon Dioxide 28.0, Anion Gap 4 L, BUN 16, Creatinine 0.69, Estim Creat Clear Calc 33.81, Est GFR (MDRD) Af Amer 104, Est GFR (MDRD) Non-Af 86, BUN/Creatinine Ratio 23.1 H, Glucose 238 H, Calcium 8.3 L 12/12/23 11:06: POC Glucose 297 H Micro: Microbiology 12/07/23 19:30 Urine, Catheterized Urine Culture - Final Culture exhibits no growth. 12/07/23 18:53 Blood Culture (Wb) - Left Forearm Blood Culture - Preliminary No growth in 48 hours. 12/07/23 18:55 Blood Culture (Wb) - Right Forearm Blood Culture - Preliminary No growth in 48 hours. 12/07/23 20:40 Mucosa - Nasopharyngeal Respiratory Panel (PCR) - Final 12/07/23 19:05 Mucosa - Nose SARS-CoV-2, Influenza & RSV (PCR) - Final Physical Exam Narrative General: Alert, Oriented x3, Cooperative, No apparent distress HEENT: Atraumatic, PERRLA, EOMI, Normocephalic Oral: Moist Mucosa Neck: Supple, No JVD Lungs: Diminished, Normal air movement, No rhonchi, No wheeze, No rales Cardiovascular: Regular rate, Regular Rhythm, Normal S1, Normal S2, No murmurs Abdomen: Soft, Non Tender, Non-Distended, No Hepato-splenomegaly Extremities: No edema, Capillary Refill Less than 3 Seconds Skin: No rashes, No breakdown Musculoskeletal: No Tenderness to Palpation of Joints or Extremities Neurological: No focal neurological deficits, Motor Exam 5/5 strength throughout, Sensory exam intact to light touch and pain Psych/Mental Status: Normal Affect, Appropriate Assessment & Plan Assessment/Plan (1) Acute metabolic encephalopathy: (2) Adult failure to thrive: (3) Diabetes: (4) Fever: (5) Rheumatoid arthritis: PLAN: Plan #Metabolic encephalopathy/Weakness -Patient awake but tired and will answer some questions -Will need to establish what patient's baseline is -Patient with one-time fever in ED, was not started on antibiotics as no bacterial infection located -It is felt that there may be some kind of viral illness -UA within normal limits, white count within normal limits, CMP unremarkable -Pro-Gio 0.29, unclear clinical significance given lack of other infectious etiology -Blood cultures pending -Did have negative respiratory panels -Interestingly ESR within normal limits, CRP was elevated at 97, will recheck these in the morning -Will DC baclofen as this could be contributing to patient being very tired and having decreased interaction today -Additionally patient was started on gabapentin which could be contributing to patient being tired and not as interactive this morning so we will discontinue and assess -Will also check folate and B12 and appears patient is on home Synthroid will check TSH and free T4 -PT/OT -12/08: Patient significantly improved today, still weak and a little bit tired but was able to answer questions appropriately, suspect there may have been underlying infection but also baclofen and gabapentin combination likely contributed 12/10/2023: She is ANO x 3 does not appear to be confused currently. Unclear as to the etiology of her fevers yesterday 12/11/2023: Remains alert and oriented x 3 and is not confused, she is not excited about the possibility of having to go to a halfway 12/12/2023: She did agree to SNF placement currently attempting pre-CERT #fever of unknown origin -UA unremarkable, lab workup unremarkable -Pro-Gio very mildly elevated at 0.29, unclear significance -No further fevers despite no antibiotics -Awaiting cultures -Viral panel negative -If any further antibiotics may CT chest and abdomen and start antibiotics -Patient status post IV fluids -12/08: Awaiting cultures, CRP had gone up but patient now started on antibiotics and has had no further fevers and mental status vastly improved from yesterday since starting antibiotics. Only complaint the patient endorses is upper abdominal pain and CT chest abdomen pelvis with contrast to evaluate for underlying cause of infection showed gastritis but cannot rule out malignancy, do not think this would account for her fever however. Patient does have RA and has elevated CRP and rheumatoid factor however would not expect a temperature as high as 101.5 to be purely from her RA especially given that she improved with antibiotics and she has no joint pain or other symptoms of RA flare. If no infection found inflammatory markers continue to increase can consider treating with steroids however given high fevers and altered mental status on presentation that improved with antibiotics hesitant to start glucocorticoids at this point 12/10/2023: Currently afebrile continue with broad-spectrum antibiotics. Per previous physicians note would not want to be transferred to a tertiary care center for an LP 12/11/2023: Still no clear understanding of the fever of unknown origin all cultures have been negative we will continue with broad-spectrum antibiotics for the next 24 to 48 hours #?Gastritis -CT showed gastritis but cannot rule out malignancy -Discussed with GI and it was felt reasonable to consider endoscopy on Monday given the concern for malignancy 12/11/2023: Planning for EGD today to determine the possibility of malignancy 12/12/2023: EGD was unremarkable and negative for malignancy #Type 2 diabetes mellitus -Glucose checks and sliding scale insulin -12/08: Glucose variable, continue sliding scale insulin, if she ends up on steroids may need to increase scale # Rheumatoid arthritis/Chronic pain -Not on any RA medications it appears -Continue lidocaine patches -Tylenol as needed -Given mental status will DC baclofen and gabapentin -12/08: Only reported upper abdominal pain and no other pain, continue home gabapentin and baclofen, elevated rheumatoid factor and CRP, unclear if infection and/or RA flare the patient clinically improved with antibiotics and has not spiked a further temperature, management as above. Other autoimmune labs pending #Hypothyroidism -Continue Synthroid -12/08: Synthroid resumed # Low BMI -BMI 14.0 -[place] diet -Meal protein supplementation DVT: Lovenox Charges/Coding Visit Charges Inpatient E&M: 83586 Subs Hosp L2
--- NOTE | 2023-12-12 16:56 | EX.PCM.PN.GI ---
Subjective Subjective Patient underwent an upper endoscopy yesterday. No etiology to her abnormal CT scan was seen yesterday. She is tolerating a diet. Objective Data Objective Data Vital Signs: Vital Signs Temp Pulse Resp BP Pulse Ox O2 Del Method 97.5 F L 89 18 122/63 H 99 Room Air 12/12/23 14:29 12/12/23 14:29 12/12/23 14:29 12/12/23 14:29 12/12/23 14:29 12/12/23 14:29 Oxygen Delivery Method Room Air Weight: 88 lb 10.013 oz Body Mass Index (BMI) 15.2 Intake & Output: Intake and Output for Last 24 Hours 12/10/23 12/11/23 12/12/23 23:59 23:59 23:59 Intake Total 2260 / 2260 638.5 / 638.5 1001 / 1001 Output Total 200 / 200 Balance 2260 / 2260 638.5 / 638.5 801 / 801 Lab / Micro Data 12/12/23 06:28 12/12/23 06:28 Labs: Laboratory Results - last 24 hr 12/09/23 06:30: JANY-1 Antibody Not Reportable, SS-A/Ro IgG Antibody Not Reportable, SS-B/La IgG Antibody Not Reportable, Sm (Estrella) Antibody Not Reportable, [employer] Antibody Not Reportable, Scl-70 Scleroderma Ab Not Reportable, Double Strand DNA Ab Not Reportable, Centromere B Antibody Not Reportable 12/11/23 16:58: POC Glucose 100 12/11/23 21:24: POC Glucose 215 H 12/12/23 06:07: POC Glucose 212 H 12/12/23 06:28: WBC 9.8, RBC 2.98 L, Hgb 9.2 L, Hct 28.7 L, MCV 96.3, MCH 30.9, MCHC 32.1, RDW Std Deviation 54.7 H, RDW Coeff of Ed 15.7 H, Plt Count 220, MPV 9.2, Immature Gran % (Auto) 0.600, Neut % (Auto) 77.2 H, Lymph % (Auto) 16.0 L, [place] % (Auto) 3.7, Eos % (Auto) 2.3, Baso % (Auto) 0.2, Absolute Neuts (auto) 7.6, Absolute Lymphs (auto) 1.57, Nucleated RBC % 0, Atypical Lymphocytes 1+, Sodium 138, Potassium 3.5, Chloride 106, Carbon Dioxide 28.0, Anion Gap 4 L, BUN 16, Creatinine 0.69, Estim Creat Clear Calc 33.81, Est GFR (MDRD) Af Amer 104, Est GFR (MDRD) Non-Af 86, BUN/Creatinine Ratio 23.1 H, Glucose 238 H, Calcium 8.3 L 12/12/23 11:06: POC Glucose 297 H Micro: Microbiology 12/07/23 19:30 Urine, Catheterized Urine Culture - Final Culture exhibits no growth. 12/07/23 18:53 Blood Culture (Wb) - Left Forearm Blood Culture - Preliminary No growth in 48 hours. 12/07/23 18:55 Blood Culture (Wb) - Right Forearm Blood Culture - Preliminary No growth in 48 hours. 12/07/23 20:40 Mucosa - Nasopharyngeal Respiratory Panel (PCR) - Final 12/07/23 19:05 Mucosa - Nose SARS-CoV-2, Influenza & RSV (PCR) - Final Physical Exam Narrative General: Alert, Oriented x3, Cooperative, No apparent distress HEENT: Atraumatic, PERRLA, EOMI, Normocephalic Oral: Moist Mucosa Neck: Supple, No JVD Lungs: Diminished, Normal air movement, No rhonchi, No wheeze, No rales Cardiovascular: Regular rate, Regular Rhythm, Normal S1, Normal S2, No murmurs Abdomen: Soft, Non Tender, Non-Distended, No Hepato-splenomegaly Extremities: No edema, Capillary Refill Less than 3 Seconds Skin: No rashes, No breakdown Musculoskeletal: No Tenderness to Palpation of Joints or Extremities Neurological: No focal neurological deficits, Motor Exam 5/5 strength throughout, Sensory exam intact to light touch and pain Psych/Mental Status: Normal Affect, Appropriate Assessment & Plan Assessment/Plan (1) Abnormal CT scan: PLAN: No sign of malignancy inflammation or ulceration on upper GI tract. Patient is eating and doing well. Continue supportive care. Charges/Coding Visit Charges Inpatient E&M: 99696 Subs Hosp L2
[2023-12-12 18:00] VITALS: BP 107/62; PULSE 85; RESP 16; TEMP 36.5; O2SAT 98
[2023-12-12 18:44] LABS: Bedside Glucose 228 mg/dL (74-106)
[2023-12-12 21:35] VITALS: BP 105/60; PULSE 88; RESP 18; TEMP 36.5; O2SAT 98
[2023-12-12] MEDS: MELATONIN 10 MG TABLET PO (22:36)
[2023-12-12] MEDS: 0.9% Normal Saline (250mL Bag) 250 ML 330 ML IV (22:37)
[2023-12-12 23:13] LABS: Bedside Glucose 227 mg/dL (74-106)
[2023-12-13 03:30] VITALS: BP 130/66; PULSE 81; RESP 16; TEMP 37; O2SAT 98
[2023-12-13 05:27] VITALS: BMI 15.1
[2023-12-13] MEDS: Timolol 0.5% 5ML OPTH.BTL 1 DRP EACH EYE (05:52)
[2023-12-13] MEDS: Levothyroxine 25 MCG TABLET PO (05:53)
[2023-12-13] MEDS: Menthol/Lanolin/Calamine/Znox 113 GM Tube 1 APPLIC TOPICAL (05:53)
[2023-12-13 07:09] LABS: Bedside Glucose 119 mg/dL (74-106)
[2023-12-13 07:30] LABS: Absolute Lymphocyte Count 2.03 X10^3/uL (0.83-4.51); Absolute Neutrophil Count 6.1 X10^3/uL (2.0-7.7); Basophil# 0.02 X10^3/uL; Basophil% 0.2 % (0-1); Eosinophil# 0.29 X10^3/uL; Eosinophils% 3.2 % (0-5); Hematocrit 29.8 % (37-47); Hemoglobin 9.5 g/dL (12.0-15.0); Lymphocyte # 2.03 X10^3/ul (0.83-4.51); Lymphocyte % 22.7 % (19-41); Mean Corp Hgb Conc 31.9 g/dL (32-36); Mean Corpuscular Hgb 30.7 pg (27.0-32.0); Mean Corpuscular Volume 96.4 fL (81-99); Mean Platelet Vol. 9.1 fl (6.2-12.0); Monocyte# 0.48 X10^3/uL; Monocyte% 5.4 % (0-10); NRBC Flagged by Analyzer 0 % (0-5); Neutrophil # 6.08 X10^3/uL (2.7-7.7); Neutrophil % 67.9 % (47-70); POSITIVE MORPHOLOGY YES; Platelet Count 263 K/mm3 (150-450); RBC Distribution Width CV 15.7 % (11.6-14.6); RBC Distribution Width SD 55.7 fl (35.1-43.9); Red Blood Count 3.09 M/mm3 (4.2-5.4)
[2023-12-13 07:36] LABS: Differential Indicated SCAN CRITERIA MET
[2023-12-13 08:00] LABS: Anion Gap 5 (5-15); BUN 11 mg/dL (7-18); BUN/Creat Ratio 17.9 RATIO (10-20); Calcium,Total 8.3 mg/dL (8.5-10.1); Chloride 104 mmol/L (98-107); Creatinine, Serum 0.61 mg/dL (0.55-1.02); EST Glomerular Filtration Rate 99 mL/min (>60); Est Glom Filt Rate - Afr Amer 119 mL/min (>60); Estimated Creatinine Clearance 33.65 ml/min; Glucose 130 mg/dL (74-106); Potassium 3.3 mmol/L (3.5-5.1); Sodium Level 138 mmol/L (136-145)
[2023-12-13 08:45] LABS: Atypical Lymphocyte RARE %
[2023-12-13 09:30] VITALS: BP 103/56; PULSE 78; RESP 16; TEMP 36.6; O2SAT 97
--- NOTE | 2023-12-13 09:38 | CASEMGMT ---
Addendum entered by Joanne Anderson 12/13/23 10:17: GERRY notified patient of approval as well. Joanne TERESA Original Note: Patient was approved for [facility]. GERRY notified physician, police department secretary, and RN. Joanne TERESA
[2023-12-13] MEDS: Loratadine 10 MG Tablet PO (10:09)
[2023-12-13] MEDS: SimETHICONE 80 MG Chewable Tablet PO ×2 (10:09→12:30)
[2023-12-13] MEDS: Lidocaine 5% Patch 1 PATCH TOPICAL (10:09)
[2023-12-13] MEDS: Ensure Plus High Protein 120 ML LIQUID PO (10:11)
--- NOTE | 2023-12-13 10:24 | CASEMGMT ---
Social Work- SW called pt brother, Ed, to advise that pt received insurance authorization and will likely transfer to [facility] today. Ed will be advised when transportation is arranged. Ed expressed agreement to discharge plan. Pt and bedside nurse advised of authorization by SW as well. ALYX Garber
[2023-12-13] MEDS: Insulin Lispro 100 UNIT/ML INSULN.PEN SC (12:29)
[2023-12-13 12:49] LABS: Bedside Glucose 283 mg/dL (74-106)
--- NOTE | 2023-12-13 13:07 | PCM.TXEXTCAR ---
Diet Diet Order/Speech Therapy: 12/11/23 17:16 Diet: Regular - General Is pt able to select menu?: Yes Routine Orders/Code Status Routine Lab Work: CBC and BMP Code Status: DNRCC-A Wound(s) Coccyx: Wound Type: Pressure Injury Therapies Physical Therapy: Eval and Treat Occupational Therapy: Eval and Treat Problem/Diagnosis (1) Abnormal CT scan: Status: Acute Code(s): R93.89 - Abnormal findings on diagnostic imaging of other specified body structures Plan #Metabolic encephalopathy/Weakness -Patient awake but tired and will answer some questions -Will need to establish what patient's baseline is -Patient with one-time fever in ED, was not started on antibiotics as no bacterial infection located -It is felt that there may be some kind of viral illness -UA within normal limits, white count within normal limits, CMP unremarkable -Pro-Gio 0.29, unclear clinical significance given lack of other infectious etiology -Blood cultures pending -Did have negative respiratory panels -Interestingly ESR within normal limits, CRP was elevated at 97, will recheck these in the morning -Will DC baclofen as this could be contributing to patient being very tired and having decreased interaction today -Additionally patient was started on gabapentin which could be contributing to patient being tired and not as interactive this morning so we will discontinue and assess -Will also check folate and B12 and appears patient is on home Synthroid will check TSH and free T4 -PT/OT -12/08: Patient significantly improved today, still weak and a little bit tired but was able to answer questions appropriately, suspect there may have been underlying infection but also baclofen and gabapentin combination likely contributed 12/10/2023: She is ANO x 3 does not appear to be confused currently. Unclear as to the etiology of her fevers yesterday 12/11/2023: Remains alert and oriented x 3 and is not confused, she is not excited about the possibility of having to go to a detention 12/12/2023: She did agree to SNF placement currently attempting pre-CERT #fever of unknown origin -UA unremarkable, lab workup unremarkable -Pro-Gio very mildly elevated at 0.29, unclear significance -No further fevers despite no antibiotics -Awaiting cultures -Viral panel negative -If any further antibiotics may CT chest and abdomen and start antibiotics -Patient status post IV fluids -12/08: Awaiting cultures, CRP had gone up but patient now started on antibiotics and has had no further fevers and mental status vastly improved from yesterday since starting antibiotics. Only complaint the patient endorses is upper abdominal pain and CT chest abdomen pelvis with contrast to evaluate for underlying cause of infection showed gastritis but cannot rule out malignancy, do not think this would account for her fever however. Patient does have RA and has elevated CRP and rheumatoid factor however would not expect a temperature as high as 101.5 to be purely from her RA especially given that she improved with antibiotics and she has no joint pain or other symptoms of RA flare. If no infection found inflammatory markers continue to increase can consider treating with steroids however given high fevers and altered mental status on presentation that improved with antibiotics hesitant to start glucocorticoids at this point 12/10/2023: Currently afebrile continue with broad-spectrum antibiotics. Per previous physicians note would not want to be transferred to a tertiary care center for an LP 12/11/2023: Still no clear understanding of the fever of unknown origin all cultures have been negative we will continue with broad-spectrum antibiotics for the next 24 to 48 hours #?Gastritis -CT showed gastritis but cannot rule out malignancy -Discussed with GI and it was felt reasonable to consider endoscopy on Monday given the concern for malignancy 12/11/2023: Planning for EGD today to determine the possibility of malignancy 12/12/2023: EGD was unremarkable and negative for malignancy #Type 2 diabetes mellitus -Glucose checks and sliding scale insulin -12/08: Glucose variable, continue sliding scale insulin, if she ends up on steroids may need to increase scale # Rheumatoid arthritis/Chronic pain -Not on any RA medications it appears -Continue lidocaine patches -Tylenol as needed -Given mental status will DC baclofen and gabapentin -12/08: Only reported upper abdominal pain and no other pain, continue home gabapentin and baclofen, elevated rheumatoid factor and CRP, unclear if infection and/or RA flare the patient clinically improved with antibiotics and has not spiked a further temperature, management as above. Other autoimmune labs pending #Hypothyroidism -Continue Synthroid -12/08: Synthroid resumed # Low BMI -BMI 14.0 -[place] diet -Meal protein supplementation DVT: Lovenox Allergies/Procedures Done in Hospital Allergies alendronate sodium (From Fosamax) Allergy (Verified 12/07/23 18:26) Anaphylaxis Penicillins Allergy (Verified 12/07/23 18:26) Swelling Procedures: None Type of Care/Length of Stay Estimated LOS: Convalescent Care Less Than 30 days Type of Care Needed: Skilled Rehab Potential: Good Prognosis: Good Additional Orders/Day of Discharge Day of Discharge: 12/13/23 Dietary and Speech Recommendations Dietitian Recommendations/Changes: Continue Regular diet to optimize oral intakes and to promote weight gain. Continue 120mL ensure plus high protein 4x daily with medpass to provide supplemental energy. Discharge Plan Admission Admit Date/Time: 12/08/23 15:54 Attending Provider: Saturnino Londono Primary Care Provider: Victor M Cochran Chi Consulting Providers: Gogo Browne; Chrissie Javier Discharge Orders/Prescriptions Prescriptions: Continued cholecalciferol (vitamin D3) [Vitamin D3] 1,000 UNIT tablet 2,000 unit PO DAILY baclofen 10 mg tablet 10 mg PO QHS acetaminophen 500 mg Tablet 1,000 mg PO BID levothyroxine 25 mcg tablet 25 mcg PO DAILY Referrals / Follow Up: Victor M Cochran Chi, MD [Primary Care Provider] - Disposition Disposition (needs filled in before D/C Order can be placed): [facility]
--- NOTE | 2023-12-13 14:06 | CASEMGMT ---
Social Work Precert has been obtained.? Physician updated and pt is ready for discharge today.? PASSR completed in HENS and sent along with discharge orders to [facility] via [facility].? Transportation arranged with [facility] for 2:30PM pickup via ground ambulance.? SW met with pt and they are agreeable to discharge plan as stated above.? Pt brother, Ed, and [id number], Alysa and bedside nurse notified of discharge time. ? Disposition:?[facility], skilled level of care under convalescent stay ALYX Garber
[2023-12-13 14:30] VITALS: BP 115/62; PULSE 89; RESP 16; TEMP 36.7; O2SAT 97
--- NOTE | 2023-12-13 14:53 | NURSING ---
Report called to HECTOR Edmond at [facility] at 1453.
--- NOTE | 2023-12-13 15:51 | DS.PCM_ITS ---
Providers Date of Admission: 12/08/23 Primary Care Physician: Dr. Victor M Cochran MD Consultations 12/09/23 12:39 Consult: Gastroenterology Routine Consulting Provider: [facility] Reason for Consult: GI gastritis cannot r/o malignancy poss scope monday? EMERGENT Consult: No MD Notified: Yes Date Notified: 12/09/23 Time Notified: 12:39 Method of Notification: Verbal Reason For Visit: FUO, ADULT FTT Diagnosis Discharge Diagnosis (1) Abnormal CT scan: Status: Acute Code(s): R93.89 - Abnormal findings on diagnostic imaging of other specified body structures Medications at Discharge Home Medications cholecalciferol (vitamin D3) 25 mcg (1,000 unit) tablet (Vitamin D3) 2,000 unit PO DAILY SUPPLEMENT 07/25/14 baclofen 10 mg tablet 10 mg PO QHS MUSCLE SPASMS 05/25/23 acetaminophen 500 mg tablet 1,000 mg PO BID 12/07/23 levothyroxine 25 mcg tablet 25 mcg PO DAILY 12/07/23 Hospital Course Operations None Procedures EGD Summary of Care Provided Minutes Spent on Discharge: 38 Hospital Course: Per HPI: The patient is an 83 y/o F w/ PMHx: Chronic anemia/Fe deficiency anemia, Anxiety and Depression, HTN, HLD, RA, Diabetes mellitus type II, Chronic back pain, Chronic constipation who presents to the [facility] ED on 12/07/23 with history of living alone although her daughter does help and assist with certain activities but recently on day of presentation family reports that the patient was significantly weak with difficulty even getting up out of a chair and subjectively felt warm and was mildly confused with general fatigue and malaise prompting family to bring patient in for ED evaluation. Workup in the ED included T97.4, heart 110, BP 161/97, respiratory rate 17, 97% on room air with Tmax in the ED 101.5, most recent vital signs T90.4, heart rate 100, BP 125/56, respiratory rate 20, 97% on room air, CBC with WBC 8.6, hemoglobin 11.2, MCV 96.6, platelet 293 without marked shift with lymphopenia, unremarkable coags, CMP with sodium 130, chloride 97, BUN/creatinine 12/0.82, GFR 70, glucose 282, hepatic profile not marked appearing, lactic acid 1.6, blood culture x 2 pending per ED, rapid SARS COVID/influenza/RSV negative, Chest x-ray probable residual chronic interstitial thickening the left lower lobe with interval improvement since previous exam otherwise no acute cardiopulmonary findings, urinalysis with specific gravity 1.025, protein 30, glucose of thousand, occult blood 50, negative nitrite, negative leukocyte Estrace with no evidence of UTI, urine culture pending per ED. In the ED patient ministered 1 L normal saline as well as Tylenol 650 mg p.o. x 1. Hospital Course: #Metabolic encephalopathy/Weakness -Patient awake but tired and will answer some questions -Will need to establish what patient's baseline is -Patient with one-time fever in ED, was not started on antibiotics as no bacterial infection located -It is felt that there may be some kind of viral illness -UA within normal limits, white count within normal limits, CMP unremarkable -Pro-Gio 0.29, unclear clinical significance given lack of other infectious etiology -Blood cultures pending -Did have negative respiratory panels -Interestingly ESR within normal limits, CRP was elevated at 97, will recheck these in the morning -Will DC baclofen as this could be contributing to patient being very tired and having decreased interaction today -Additionally patient was started on gabapentin which could be contributing to patient being tired and not as interactive this morning so we will discontinue and assess -Will also check folate and B12 and appears patient is on home Synthroid will check TSH and free T4 -PT/OT -12/08: Patient significantly improved today, still weak and a little bit tired but was able to answer questions appropriately, suspect there may have been underlying infection but also baclofen and gabapentin combination likely contributed 12/10/2023: She is ANO x 3 does not appear to be confused currently. Unclear as to the etiology of her fevers yesterday 12/11/2023: Remains alert and oriented x 3 and is not confused, she is not excited about the possibility of having to go to a senior care 12/12/2023: She did agree to SNF placement currently attempting pre-CERT 12/13/2023: Encephalopathy has resolved and I discussed with her the plan for discharge today and she expressed understanding of the risk and benefits of going to the senior care and is okay with going today to start her rehab. All cultures are negative and she does not have an obvious source of infection #fever of unknown origin -UA unremarkable, lab workup unremarkable -Pro-Gio very mildly elevated at 0.29, unclear significance -No further fevers despite no antibiotics -Awaiting cultures -Viral panel negative -If any further antibiotics may CT chest and abdomen and start antibiotics -Patient status post IV fluids -12/08: Awaiting cultures, CRP had gone up but patient now started on antibiotics and has had no further fevers and mental status vastly improved from yesterday since starting antibiotics. Only complaint the patient endorses is upper abdominal pain and CT chest abdomen pelvis with contrast to evaluate for underlying cause of infection showed gastritis but cannot rule out malignancy, do not think this would account for her fever however. Patient does have RA and has elevated CRP and rheumatoid factor however would not expect a temperature as high as 101.5 to be purely from her RA especially given that she improved with antibiotics and she has no joint pain or other symptoms of RA flare. If no infection found inflammatory markers continue to increase can consider treating with steroids however given high fevers and altered mental status on presentation that improved with antibiotics hesitant to start glucocorticoids at this point 12/10/2023: Currently afebrile continue with broad-spectrum antibiotics. Per previous physicians note would not want to be transferred to a tertiary care center for an LP 12/11/2023: Still no clear understanding of the fever of unknown origin all cultures have been negative we will continue with broad-spectrum antibiotics for the next 24 to 48 hours 12/13/2023: Will discontinue antibiotics on discharge as there is no clear source #?Gastritis -CT showed gastritis but cannot rule out malignancy -Discussed with GI and it was felt reasonable to consider endoscopy on Monday given the concern for malignancy 12/11/2023: Planning for EGD today to determine the possibility of malignancy 12/12/2023: EGD was unremarkable and negative for malignancy 12/13/2023: As the EGD was normal, will discontinue PPI #Type 2 diabetes mellitus -Glucose checks and sliding scale insulin -12/08: Glucose variable, continue sliding scale insulin, if she ends up on steroids may need to increase scale # Rheumatoid arthritis/Chronic pain -Not on any RA medications it appears -Continue lidocaine patches -Tylenol as needed -Given mental status will DC baclofen and gabapentin -12/08: Only reported upper abdominal pain and no other pain, continue home gabapentin and baclofen, elevated rheumatoid factor and CRP, unclear if infection and/or RA flare the patient clinically improved with antibiotics and has not spiked a further temperature, management as above. Other autoimmune labs pending #Hypothyroidism -Continue Synthroid -12/08: Synthroid resumed # Low BMI -BMI 14.0 -[place] diet -Meal protein supplementation Physical Exam Narrative General: Alert, Oriented x3, Cooperative, No apparent distress HEENT: Atraumatic, PERRLA, EOMI, Normocephalic Oral: Moist Mucosa Neck: Supple, No JVD Lungs: Diminished, Normal air movement, No rhonchi, No wheeze, No rales Cardiovascular: Regular rate, Regular Rhythm, Normal S1, Normal S2, No murmurs Abdomen: Soft, Non Tender, Non-Distended, No Hepato-splenomegaly Extremities: No edema, Capillary Refill Less than 3 Seconds Skin: No rashes, No breakdown Musculoskeletal: No Tenderness to Palpation of Joints or Extremities Neurological: No focal neurological deficits, Motor Exam 5/5 strength throughout, Sensory exam intact to light touch and pain Psych/Mental Status: Normal Affect, Appropriate Weight / BMI Weight Weight: 88 lb 2.958 oz Body Mass Index (BMI) 15.1 ABG / Lab / Microbiology Data 12/13/23 06:53 12/13/23 06:53 Laboratory: Laboratory Results - last 24 hr 12/12/23 18:01: POC Glucose 228 H 12/12/23 22:42: POC Glucose 227 H 12/13/23 06:51: POC Glucose 119 H 12/13/23 06:53: WBC 9.0, RBC 3.09 L, Hgb 9.5 L, Hct 29.8 L, MCV 96.4, MCH 30.7, MCHC 31.9 L, RDW Std Deviation 55.7 H, RDW Coeff of Ed 15.7 H, Plt Count 263, MPV 9.1, Immature Gran % (Auto) 0.600, Neut % (Auto) 67.9, Lymph % (Auto) 22.7, [place] % (Auto) 5.4, Eos % (Auto) 3.2, Baso % (Auto) 0.2, Absolute Neuts (auto) 6.1, Absolute Lymphs (auto) 2.03, Nucleated RBC % 0, Atypical Lymphocytes RARE, Sodium 138, Potassium 3.3 L, Chloride 104, Carbon Dioxide 29.0, Anion Gap 5, BUN 11, Creatinine 0.61, Estim Creat Clear Calc 33.65, Est GFR (MDRD) Af Amer 119, Est GFR (MDRD) Non-Af 99, BUN/Creatinine Ratio 17.9, Glucose 130 H, Calcium 8.3 L 12/13/23 12:27: POC Glucose 283 H Microbiology: Microbiology 12/07/23 18:53 Blood Culture (Wb) - Left Forearm Blood Culture - Final No growth in 5 days. 12/07/23 18:55 Blood Culture (Wb) - Right Forearm Blood Culture - Final No growth in 5 days. 12/07/23 19:30 Urine, Catheterized Urine Culture - Final Culture exhibits no growth. 12/07/23 20:40 Mucosa - Nasopharyngeal Respiratory Panel (PCR) - Final 12/07/23 19:05 Mucosa - Nose SARS-CoV-2, Influenza & RSV (PCR) - Final Meaningful Use Info Meaningful Use Meaningful Use Diagnoses (Choose all that apply): None applicable Ischemic Stroke Statin Dosing Therapy Reference: STATIN DOSE THERAPY REFERENCE: * Patients > 75 years receive moderate or high dose statin therapy. * Patients 75 years or YOUNGER should receive HIGH intensity statin dose unless contraindicated. You will be required to document reason for non-treatment if statin daily dose does not meet guidelines. HIGH DOSE STATIN THERAPY DAILY Atorvastatin > than or = to 40 mg Rosuvastatin > than or = to 20 mg Amlodipine + Atorvastatin > than or = to 2.5/40 mg Ezetimibe + Simvastatin 10/80 mg Simvastatin 80mg Discharge Plan Admission Admit Date/Time: 12/08/23 15:54 Attending Provider: Saturnino Londono Primary Care Provider: Victor M Cochran Chi Consulting Providers: Gogo Browne; Chrissie Javier Discharge Orders/Prescriptions Prescriptions: Continued cholecalciferol (vitamin D3) [Vitamin D3] 1,000 UNIT tablet 2,000 unit PO DAILY baclofen 10 mg tablet 10 mg PO QHS acetaminophen 500 mg Tablet 1,000 mg PO BID levothyroxine 25 mcg tablet 25 mcg PO DAILY Referrals / Follow Up: Victor M Cochran Chi, MD [Primary Care Provider] - Disposition Disposition (needs filled in before D/C Order can be placed): [facility] Charges/Coding Visit Charges Inpatient E&M: 23538 Disch Hosp >30min
== END 2023-12-13 14:54 | disposition skilled nursing facility (03) | DRG 640 ==
LOC: ED 20:45 → PCU 21:09
PROVIDERS: Anesthesiology; Internal Medicine; Internal Medicine Gastroenterology; Nurse Practitioner; Admitting Provider Family Medicine; Emergency Provider Emergency Medicine; PCP Family Medicine Geriatric Medicine; Visit Provider Family Medicine
PROC: 0DJ08ZZ Inspection of Upper Intestinal Tract, Via Natural or Artificial Opening Endoscopic (ICD-10-PCS; CPT 43235; principal; 2023-12-11 12:40)
DX: G93.41 Metabolic encephalopathy (principal); M06.9 Rheumatoid arthritis, unspecified; E11.22 Type 2 diabetes mellitus with diabetic chronic kidney disease; E11.65 Type 2 diabetes mellitus with hyperglycemia; Z68.1 Body mass index [BMI] 19.9 or less, adult; D50.9 Iron deficiency anemia, unspecified; E03.9 Hypothyroidism, unspecified; I12.9 Hypertensive chronic kidney disease with stage 1 through stage 4 chronic kidney disease, or unspecified chronic kidney disease; F32.A Depression, unspecified; K29.70 Gastritis, unspecified, without bleeding; E78.5 Hyperlipidemia, unspecified; M48.061 Spinal stenosis, lumbar region without neurogenic claudication; N18.2 Chronic kidney disease, stage 2 (mild); K44.9 Diaphragmatic hernia without obstruction or gangrene; K59.09 Other constipation; G89.29 Other chronic pain; Z79.890 Hormone replacement therapy; R93.89 Abnormal findings on diagnostic imaging of other specified body structures; Z79.899 Other long term (current) drug therapy; E43 Unspecified severe protein-calorie malnutrition; E87.1 Hypo-osmolality and hyponatremia; R62.7 Adult failure to thrive
CPT/HCPCS: 43235; 36415; 71045; 71260; 74177; 80048; 80053; 81001; 82306; 82607; 82746; 82962; 83036; 83605; 84100; 84145; 84439; 84443; 85025; 85610; 85652; 85730; 86038; 86140; 86225; 86235; 86431; 86850; 86900; 86901; 87040; 87086; 87631; 87633; 93005; 96361; 96365; 96366; 96367; 96368; 96372; 97110; 97162; 97166; 97530; 97535; 97802; 97803; 99221; 99285; J2185; P9612; Q9967; A4216; G0378; J2405

== ENCOUNTER → 2024-03-11 | Outpatient (CLI) | payer MEDICARE, SELFPAY ==
--- NOTE | 2024-03-11 15:13 | MRI_ITS ---
STUDY: MRI THORACIC SPINE WITHOUT CONTRAST REASON FOR EXAM: Female, 84 years old. Radiculopathy. TECHNIQUE: Standardized fat and water weighted pulse sequences were obtained in the sagittal and axial planes. COMPARISON: CT chest with contrast 12/08/2023. FINDINGS: Moderate kyphosis of the thoracic spine at the T10 pancake compression fracture deformity level. There is no substantial scoliosis. T1-2, T2-3, T3-4, T4-5, T5-6, T6-7, T7-8, T8-9, T9-10, T10-11, T11-12: Pronounced pancake flattening compression fracture deformity of the T10 vertebral body is hypointense on T1, T2 and STIR sequences. There is retropulsion of the posterior inferior fracture fragment causing only minimal narrowing of the still capacious central canal. Mild to moderate compression fracture deformity of the T9 vertebral body is hypointense on T1, mildly hypointense on T2 and no obvious edema on STIR sequence. Moderately pronounced old anterior wedge compression fracture of the T8 vertebral body, mild to moderate old anterior wedge compression fracture of the upper T11 vertebral body and moderately pronounced central compression fracture of the upper T12 vertebral body with more than two thirds loss of the central vertebral body height. Mild old central compression fracture of the L1 superior endplate, L2 superior endplate and L3 superior endplate. No thoracic extruded disc fragment. Normal central canal and intervertebral neuroforamina. Normal visualized thoracic cord. Normal conus medullaris that terminates at the lower L1 vertebral body level. The soft tissue structures are unremarkable. MRI/Spine Thoracic (Routine) IMPRESSION: 1. Pronounced old pancake flattening compression fracture deformity of the T10 vertebral body with small retropulsion of the posterior inferior corner of the fracture fragment. This is causing only minimal narrowing of still capacious central canal and no associated cord compression. 2. Near complete healing of mild to moderate compression fracture deformity of the T9 vertebral body. There is very minimal if any residual bone edema of the T9 vertebral body. 3. Moderately pronounced old anterior wedge compression fracture of T8 vertebral body. 4. Mild to moderate old anterior wedge compression fracture of the upper T11 vertebral body. 5. Moderately pronounced central compression fracture of the upper T12 vertebral body with more than two thirds loss of the central vertebral body height. 6. Mild old central compression fractures of the superior endplates of L1, L2 on L3. 7. Normal thoracic spinal cord. Electronically Signed: Kael Penn MD at 10:23 EDT ,
== END | disposition home or self-care (01) ==
LOC: MRI 15:10
PROVIDERS: PCP Family Medicine Geriatric Medicine; Referring Provider Anesthesiology Pain Medicine; Visit Provider Anesthesiology Pain Medicine
DX: M54.14 Radiculopathy, thoracic region (principal)
CPT/HCPCS: 72146

== ENCOUNTER → 2024-10-02 | Outpatient (CLI) | payer MEDICARE, SELFPAY ==
--- NOTE | 2024-10-02 15:40 | RAD_ITS ---
PROCEDURE: CERV SPINE 2 OR 3 VIEWS 10/02/2024 REASON FOR EXAM: SPONDYLOSIS WITHOUT MYELOPATHY OR RADICULOPATHY, CERVICAL REGION TECHNIQUE: 3 views of the cervical spine. FINDINGS: Vertebrae: No acute fracture. disc spaces: Mild disc space narrowing in the lower cervical spine consistent with degenerative disc disease. Alignment: Anatomic alignment. soft tissues: Unremarkable. Other: RAD/Cerv Spine 2 or 3 Views IMPRESSION: MILD CERVICAL DEGENERATIVE CHANGES. Disclaimer: Reading Location: [id number]
== END | disposition home or self-care (01) ==
LOC: RAD 15:37
PROVIDERS: PCP Family Medicine Geriatric Medicine; Referring Provider Anesthesiology Pain Medicine; Visit Provider Anesthesiology Pain Medicine
DX: M47.812 Spondylosis without myelopathy or radiculopathy, cervical region (principal)
CPT/HCPCS: 72040

== ENCOUNTER 2025-01-11 14:03 | Emergency (ER) | payer MEDICARE, SELFPAY ==
[2025-01-11 14:03] VITALS: BP 132/116; PULSE 104; RESP 22; TEMP 37; O2SAT 95
[2025-01-11 14:05] VITALS: BMI 18.2
--- NOTE | 2025-01-11 14:14 | EKG12_ITS ---
Test Reason : CP/SOB Blood Pressure : */* mmHG Vent. Rate : 95 BPM Atrial Rate : 95 BPM P-R Int : 126 ms QRS Dur : 82 ms QT Int : 352 ms P-R-T Axes : 26 18 38 degrees QTcB Int : 442 ms Normal sinus rhythm with sinus arrhythmia Normal ECG Confirmed by IRINA HARRY, SANAZ ([id number]), index editor KALE RHODES ([id number]) on 01/14/2025 7:54:32 AM Referred By: TB/UG Confirmed By: SANAZ AREVALO MD
--- NOTE | 2025-01-11 14:33 | EDS_ITS ---
HPI History of Present Illness Chief Complaint: Chest Pain Narrative Narrative: Patient is 84-year-old female with past medical history of anxiety, failure to thrive, iron deficiency anemia, hypertension, hypercholesteremia, diabetes who presented to the emergency department with a chief complaint of shortness of breath and chest pain. Patient states that for the past few days she has had a cough but not coughing up. She notes that she feels short of breath as well. Patient states her chest pain is in the middle of her chest and radiates to the left side nothing makes this better or worse. [facility] Medical History COVID [facility] resident Loss of hearing Wears glasses Wears dentures Post-menopausal Cancer Forgetfulness Anxiety Open wound Pain Walker as ambulation aid Bladder disease Injury of back Syncope FTT (failure to thrive) in adult History of diverticulitis Chronic constipation Non-smoker History of pain when walking History of echocardiogram Hypertension Iron deficiency anemia Osteoarthritis Rheumatoid arthritis High cholesterol Diabetes Home Medications ?Medication ?Instructions ?Recorded ?Last Taken ?Type acetaminophen 500 mg tablet 1,000 mg PO BID 12/07/23 0 12/06/23 History acetaminophen 300 mg-codeine 30 mg 1 tab PO Q8H PRN pa in 01/11/25 Unknown History tablet artificial tears(hypromellose) 0.3 1 drp EACH EYE Q8H PRN dry eye(s) 01/11/25 Unknown History % eye drops cholecalciferol (vitamin D3) 50 50 mcg PO DAILY Unknown History mcg (2,000 unit) capsule dapagliflozin propanediol 10 mg 10 mg PO DAILY 5 Unknown History tablet (Farxiga) latanoprost 0.005 % eye drops 1 drp ophthalmic (eye) D AILY 01/11/25 Unknown History levofloxacin 750 mg tablet 750 mg PO DAILY 5 days #5 t abs 01/11/25 Unknown Rx lidocaine 5 % topical patch 1 patch topical Q24H 01/11 Unknown History (Lidoderm) loperamide 2 mg tablet (Diamode) 2 mg PO Q8H PRN loose stool 01/11/25 Unknown History magnesium hydroxide 400 mg/5 mL 30 ml PO DAILY PRN con stipation 01/11/25 Unknown History oral suspension (Gentle Laxative (magnesium hydroxide)) mirtazapine 15 mg tablet 7.5 mg PO DAILY 01/11/25 Unk nown History [id number]-vji-yzmlg acid 0.4 1 tab PO DAILY 01/11/25 Un known History mg-lycopene 300 mcg-lutein 250 mcg tablet (CertaVite Senior) polyethylene glycol 3350 17 17 g PO DAILY PRN constipa tion 01/11/25 Unknown History gram/dose oral powder (Gavilax) Allergy/AdvReac Type Severity Reaction Status Date / Time alendronate sodium (From Allergy Anaphylaxis Verified 01/11/25 14:03 Fosamax) Penicillins Allergy Swelling Verified 01/11/25 14:03 Family History Mother Alzheimer disease Father Myocardial infarction Hypertension Heart disease CAD (coronary artery disease) Surgical History Hx of colonoscopy History of surgery on arm S/P ORIF (open reduction internal fixation) fracture Social History household members: none Smoking Status: Never smoker alcohol intake: never substance use type: does not use ROS ROS ED ROS Narrative Constitutional: Denies any fevers, chills, headaches Eyes: Denies change in vision double vision Cardiovascular: Complains of chest pain as noted above denies palpitations Respiratory: Complains of cough and shortness of breath as noted above Abdomen: Denies abdominal pain nausea vomit diarrhea : Denies urinary symptoms Neurological: Denies any numbness, wheeze, tingling Musculoskeletal: Denies back pain Skin: Denies any rashes or lesions EXAM Physical Exam Narrative Exam Narrative: General: Patient lying in bed rest comfortably did not appear to be in acute distress Head: Atraumatic, normocephalic Eyes: PERRL bilaterally, EOMI bilaterally, no conjunctival injection noted Neck: Soft, supple, trachea midline Cardiovascular: Patient tachycardic with a regular rhythm no murmurs gallops rubs are noted Respiratory: Clear to auscultation bilaterally Abdomen: Soft, nondistended, nontender to palpation Extremities: +4/5 strength noted in the bilateral upper and lower extremities, radial pulses +2/4 in the bilateral extremities, 1+ pitting edema in the bilateral lower extremities Neurological: Patient following commands as she was at the hospital the year is 2024 Skin: Warm, dry, intact no rashes or lesions noted Const Vital Signs: 01/11/25 14:03 01/11/25 14:14 01/11/25 15:03 Temperature 98.6 F Temperature Source Oral Pulse Rate 104 H 81 Respiratory Rate 22 H 14 Respiratory Effort Respiratory Depth Respiratory Pattern Blood Pressure 132/116 H 160/75 H Blood Pressure Mean 121 103 Pulse Ox 95 98 Oxygen Delivery Method Room Air Room Air Room Air 01/11/25 15:59 01/11/25 16:03 Temperature Temperature Source Pulse Rate Respiratory Rate Respiratory Effort Normal Non-Labored Respiratory Depth Normal Respiratory Pattern Normal Normal Blood Pressure Blood Pressure Mean Pulse Ox Oxygen Delivery Method Room Air MDM MDM MDM Narrative Medical decision making narrative: Patient is a 84-year-old female who presents to the emergency department chief plaint chest pain shortness of breath. On the differential diagnosis includes but not limited to hypertensive emergency, flash pulmonary edema, CHF, pneumonia, pneumothorax. Once the workup is obtained reviewed she will be re evaluated. Will not give 30 cc/kg bolus of IV fluids we will give 1 L of IV fluids which was ordered at 1414 as there is concern for a hypervolemic state. Did review the note that was written by the nurse from the facility that states that she was complaining chest pain shortness of breath she was noted to be at that point time 91% on room air and tachycardic to a rate of 120 bpm. Family notes that they would not want any heroic measures and would want her to be comfortable. CODE STATUS on the paperwork showed DNR comfort care Patient CBC reviewed showed no evidence leukocytosis white blood count normal at 8.3, hemoglobin 13.8, platelet count of 49. Patient sodium normal 137, potassium normal at 4.3, creatinine normal at 0.95. Patient's troponin was 12 with a delta troponin noted to be 10. Patient's EKG showed sinus rhythm rate of 95 bpm. Patient proBNP was normal at 336 patient's chest x-ray reviewed and showed findings consistent with a left-sided infiltrate, effusion, atelectasis patient was given a dose of IV Levaquin here. Patient ambulated well here in the emergency department no hypoxia no tachycardia. Discussed the results with the patient and for members at bedside she would like to go back to her facility. Patient will be placed on oral Levaquin and was advised to follow-up with her doctor and return with worsening symptoms or other concerns. She is agreeable this plan all question concerns answered she was discharged home in stable condition. Lab Data Labs: Laboratory Results - last 24 hr 01/11/25 01/11/25 14:34 15:58 WBC 8.3 RBC 4.41 Hgb 13.8 Hct 41.3 MCV 93.7 MCH 31.3 MCHC 33.4 RDW Std Deviation 46.9 H RDW Coeff of Ed 13.6 Plt Count 489 H MPV 8.7 Immature Gran % (Auto) 0.400 Neut % (Auto) 73.7 H Lymph % (Auto) 16.[address] [place] % (Auto) 7.6 Eos % (Auto) 1.0 Baso % (Auto) 0.4 Absolute Neuts (auto) 6.1 Absolute Lymphs (auto) 1.40 Nucleated RBC % 0 Sodium 137 Potassium 4.3 Chloride 97 L Carbon Dioxide 26.7 Anion Gap 13 BUN 12 Creatinine 0.95 Est GFR (MDRD) Non-Af 59 L BUN/Creatinine Ratio 12.9 Glucose 246 H Calcium 9.9 Troponin T High Sens 12 Troponin T Hi Sens 2 Hr 10 NT pro BNP II 336 Radiography Diagnostic Testing: Clinical Impression(s) from Imaging Studies Chest X-Ray 01/11/25 14:40 IMPRESSION: Hyperexpanded lungs with chronic interstitial changes and superimposed opacifications in the left costophrenic angle, a likely combination of infiltrate effusion and atelectasis. Follow-up recommended to ensure resolution Stable cardiomegaly Reading Location: [id number] Discharge Plan Triage Chief Complaint: Chest Pain Other Complaint: Shortness of Breath ED Provider: Chip Rodriguez Dx/Rx/DC Orders Clinical Impression: Chest pain, Pneumonia Prescriptions: New levofloxacin 750 mg tablet 750 mg PO DAILY 5 Days Qty: 5 0RF No Action acetaminophen 500 mg Tablet 1,000 mg PO BID latanoprost 0.005 % drops 1 drp ophthalmic (eye) DAILY mirtazapine 15 mg tablet 7.5 mg PO DAILY CertaVite Senior 0.4 mg-300 mcg- 250 mcg tablet 1 tab PO DAILY cholecalciferol (vitamin D3) 50 mcg (2,000 unit) capsule 50 mcg PO DAILY dapagliflozin propanediol [Farxiga] 10 mg tablet 10 mg PO DAILY acetaminophen-codeine 300-30 mg tablet 1 tab PO Q8H PRN (Reason: pain) artificial tears(hypromellose) 0.3 % drops 1 drp EACH EYE Q8H PRN (Reason: dry eye(s)) lidocaine [Lidoderm] 5 % adhesive patch,medicated 1 patch topical Q24H Rx Instructions: leave on most painful area for up to 12 hrs loperamide [Diamode] 2 mg tablet 2 mg PO Q8H PRN (Reason: loose stool) magnesium hydroxide [Gentle Laxative (mag hydrox)] 400 mg/5 mL suspension 30 ml PO DAILY PRN (Reason: constipation) polyethylene glycol 3350 [Gavilax] 17 gram/dose powder 17 g PO DAILY PRN (Reason: constipation) Primary Care Provider: Merlin Lynn Referrals: Victor M Cochran Chi, MD [Med Staff - Active Staff] - Activity Restrictions/Additional Instructions: Follow-up with your doctor in outpatient setting. Take antibiotics as prescribed you are given your first dose here in the emergency department. Return with worsening symptoms or any other concerns Print Language: [place] Disposition Disposition: Home, Self Care
[2025-01-11] MEDS: 0.9% Normal Saline (1000mL) 1,000 ML 999 ML IV (14:38)
--- NOTE | 2025-01-11 14:40 | RAD_ITS ---
PROCEDURE: CHEST PA AND LATERAL 01/11/2025 REASON FOR EXAM: CHEST PAIN TECHNIQUE: CHEST PA AND LATERAL COMPARISON: Previous CT chest from 2023 FINDINGS: EKG leads overlie the chest. Lungs are hyperexpanded with chronic interstitial changes. Nonspecific pleural thickening noted in both hemithoraces [id number]-left with superimposed opacifications in the left lung base likely combination of effusion atelectasis and perhaps infiltrate. Follow-up recommended to ensure complete resolution. Stable borderline cardiomegaly. Bony structures show extensive degenerative changes RAD/Chest PA and Lateral IMPRESSION: Hyperexpanded lungs with chronic interstitial changes and superimposed opacific ations in the left costophrenic angle, a likely combination of infiltrate effusion and atelectasis. Follow-up recommended to e nsure resolution Stable cardiomegaly Reading Location: [id number]
[2025-01-11 14:43] LABS: Hematocrit 41.3 % (37-47); Hemoglobin 13.8 g/dL (12.0-15.0); Immature Granulocytes Count 0.030 X10^3/uL (0.0-0.0); Mean Corp Hgb Conc 33.4 g/dL (32-36); Mean Corpuscular Volume 93.7 fL (81-99); Mean Platelet Vol. 8.7 fl (6.2-12.0); NRBC Flagged by Analyzer 0 % (0-5); Platelet Count 489 K/mm3 (150-450); RBC Distribution Width CV 13.6 % (11.6-14.6); RBC Distribution Width SD 46.9 fl (35.1-43.9); Red Blood Count 4.41 M/mm3 (4.2-5.4); White Blood Count 8.3 K/mm3 (4.4-11.0)
[2025-01-11 14:59] LABS: Anion Gap 13 (5-15); BUN 12 mg/dL (4-19); BUN/Creat Ratio 12.9 RATIO (10-20); Calcium,Total 9.9 mg/dL (7.6-11.0); Carbon Dioxide 26.7 mmol/L (21.0-32.0); Chloride 97 mmol/L (98-108); Glucose 246 mg/dL (70-99); Potassium 4.3 mmol/L (3.3-5.1); Pro- Brain NATRIURETIC PEPTIDE 336 pg/mL (<=1800); Troponin T High Sensitivity 12 ng/L (<=14)
[2025-01-11 15:00] VITALS: O2SAT 98
[2025-01-11 15:03] VITALS: BP 160/75; PULSE 81; RESP 14; O2SAT 98
--- OUTSIDE RECORDS SUMMARY | 2025-01-11 15:23 | XMS RPT_ITS | CCD ---
Author Organization [facility] CliniSypr Care Team Providers Care Apartment Rental Agent Name Role Phone Jud Hernandez Unavailable Unavailable Jud Hernandez Unavailable Unavailable Dr. Victor M Cochran Chi Primary Care Provider Dr. Raj De La Rosa Emergency Provider Dr. Gogo Browne Admit Provider Dr. Gogo Browne Attending Provider Dr. Gogo Browne Other Provider Dr. Andres Gomez Attending Provider Dr. Andres Gomez Other Provider Dr. Saturnino Londono Attending Provider Dr. Saturnino Londono Other Provider [place] DX BOARD OPERATOR, DX BOARD OPERATOR-C Teresa Attending Provider Dr. Jacque Salas Attending Provider Dr. Victor M Cochran Chi Primary Care Provider Dr. Raj De La Rosa Emergency Provider Dr. Gogo Browne Admit Provider Dr. Gogo Browne Attending Provider Dr. Gogo Browne Other Provider Dr. Andres Gomez Attending Provider Dr. Andres Gomez Other Provider Dr. Saturnino Londono Attending Provider Dr. Saturnino Londono Other Provider [place] DX BOARD OPERATOR, DX BOARD OPERATOR-C Teresa Attending Provider [phone] Dr. Jacque Salas Attending Provider PEDRO LUIS ANAYA MD Admitting Unavailable PEDRO LUIS ANAYA MD Attending Unavailable PEDRO LUIS ANAYA MD Primary Care Unavailable PEDRO LUIS ANAYA MD Consulting Unavailable PROVIDER, UNKNOWN Consulting Unavailable PROVIDER, UNKNOWN Consulting Unavailable Dimas , Dr. Victor M Dorsey Primary Care Provider [phone] Albert HARRY, Dr. Damico Attending Provider Dr. Mookie Price MD Referring Provider [phone] White, Gogo L Admitting Unavailable White, Gogo L Consulting Unavailable Kotsonis, Saturnino F Attending Unavailable Dimas, Victor M Chi Primary Care Unavailable Javier, Chrissie Consulting Unavailable Kotsonis, Saturnino F Consulting Unavailable Kotsonis, Saturnino F Referring Unavailable Mohini, Varghese Attending Unavailable White, Gogo L Admitting Unavailable White, Gogo L Consulting Unavailable Kotsonis, Saturnino F Attending Unavailable Dimas, Victor M Chi Primary Care Unavailable Javier, Chrissie Consulting Unavailable Basali, Ayman Referring Unavailable Basali, Ayman Attending Unavailable Dimas, Victor M Chi Primary Care Unavailable Dimas, Victor M Chi Attending Unavailable Dimas, Victor M Chi Primary Care Unavailable Basali, Ayman Referring Unavailable Basali, Ayman Attending Unavailable Dimas, Victor M Chi Primary Care Unavailable Basali, Ayman Referring Unavailable Basali, Ayman Attending Unavailable Dimas, Victor M Chi Primary Care Unavailable Dimas, Victor M Chi Primary Care Unavailable Twyla, Silva Referring Unavailable Twyla, Silva Attending Unavailable Javier, Chrissie Attending Unavailable White, Gogo L Admitting Unavailable White, Gogo L Consulting Unavailable Dimas, Victor M Chi Primary Care Unavailable Javier, Chrissie Attending Unavailable Javier, Chrissie Consulting Unavailable White, Gogo L Attending Unavailable Allergies Allergy Classification Reported Allergen(s) Allergy Type Date of Onset Reaction(s) Facility (2 sources) alendronate drug allergy [facility] Work Phone: (2 sources) penicillin drug allergy [facility] Work Phone: (20 sources) Alendronate Drug Allergy 07-25-2014 Anaphylaxis [facility] (20 sources) Penicillins; Translations: [Penicillins] Allergy to substance 07-25-2014 Swelling [facility] (1 source) Penicillins Drug allergy (disorder) [facility] (1 source) Alendronate Drug Allergy 12-07-2023 [facility] Medications Current Medications Medication Drug Class(es) Dates Sig (Normalized) Sig (Original) acetaminophen 500 mg oral tablet (20 sources) Start: 12-07-2023 take 2 tablets by mouth twice daily Acetaminophen 500 mg Tablet Active 1000 mg PO TWICE A DAY December 07, 2023 12:00am Start: 06-14-2023 End: 12-07-2023 take 2 tablets by mouth every eight hours Acetaminophen 500 mg Tablet Discontinued 1000 mg PO EVERY 8 HOURS 0 June 14, 2023 1:00am December 07, 2023 9:09pm Start: 06-14-2023 take 1000 mg by mout h every eight hours Acetaminophen Active 1000 MG PO EVERY 8 HOURS 0 June 14, 2023 1:00am Start: 05-25-2023 End: 06-14-2023 take 2 tablets by mouth twice daily Acetaminophen (Tylenol Extra Strength) 500 mg tablet Discontinued 1000 mg PO TWICE A DAY May 25, 2023 1:00am June 14, 2023 8:44am Start: 08-06-2014 End: 05-25-2023 take 2 tablets by mouth every six hours as needed for pain Acetaminophen (Tylenol) 325 MG tablet Discontinued 650 mg PO EVERY 6 HOURS NEEDED as needed for Mild Pain 0 August 06, 2014 1:00am May 25, 2023 8:22pm baclofen 10 mg oral tablet (10 sources) gamma-Aminobutyric Acid-ergic Agonist Start: 05-25-2023 take 1 tablet by mouth at bedtime Baclofen 10 mg tablet Active 10 mg PO AT BEDTIME May 25, 2023 1:00am cholecalciferol 0.025 mg oral tablet (20 sources) Vitamin D Start: 07-25-2014 take 2 tablets by mouth once daily Cholecalciferol (Vitamin D3) (Vitamin D3) 1,000 UNIT tablet Active 2000 U PO DAILY July 25, 2014 1:00am Start: 07-25-2014 take 2 tablets by mo [facility] once daily Cholecalciferol (Vitamin D3) (Vitamin D3) 1,000 UNIT tablet Active 2000 UNIT PO DAILY July 25, 2014 1:00am take 1 tablet by chriss th once daily VITAMIN D3 2000 UNIT CAPS One tablet by mouth daily CHOLECALCIFEROL [id number] Juana Jessica Donovan TM[employer] TEACHER Food Supplemt, Lactose-Reduced (Ensure Clear) Liquid (1 source) Start: 06-14-2023 take 1 mL by mouth four times daily Food Supplemt, Lactose-Reduced (Ensure Clear) Liquid Active 120 ML PO 4 TIMES DAILY 0 June 14, 2023 12:00am levothyroxine sodium 0.025 mg oral tablet (1 source) l-Thyrox ine Start: 12-07-2023 take 1 tablet by mouth once daily Levothyroxine 25 mcg tablet Active 25 ug PO DAILY December 07, 2023 12:00am Ceskywnhwbcn-Wf-Akan-Mi nerals (Multiple Vitamin, Womens) 1 EACH tablet (20 sources) Start: 07-25-2014 take 1 tablet by mouth once daily Dsfvnganncwj-Ai-Smjo-M inerals (Multiple Vitamin, Womens) 1 EACH tablet Active 1 EACH PO DAILY July 25, 2014 10:51am Start: 07-25-2014 End: 05-25-2023 take 1 tablet by mouth once daily Xpsfhaercwth-Cf-Ngka-Minerals (Multiple Vitamin, Womens) 1 EACH tablet Discontinued 1 NMA PO DAILY July 25, 2014 1:00am May 25, 2023 9:11pm Start: 07-25-2014 End: 05-25-2023 take 1 tablet by mouth once daily Fioxmahdfvkh-Vn-Gygt-Minerals (Multiple Vitamin, Womens) 1 EACH tablet Discontinued 1 EACH PO DAILY July 25, 2014 1:00am May 25, 2023 9:11pm Start: 07-25-2014 End: 05-25-2023 take 1 tablet by mouth once daily Dvyxwxdwneoa-Cw-Dfcg-Minerals (Multiple Vitamin, Womens) 1 EACH tablet Discontinued 1 EACH PO DAILY July 25, 2014 12:00am May 25, 2023 8:11pm Start: 07-25-2014 take 1 tablet by chriss th once daily Jubnojzdnhmx-Sg-Psoi-Minerals (Multiple Vitamin, Womens) 1 EACH tablet Active 1 EACH PO DAILY July 25, 2014 12:00am Start: 07-25-2014 take 1 tablet by chriss th once daily Uzrmvdiwlurx-Ly-Czyi-Minerals (Multiple Vitamin, Womens) 1 EACH tablet Active 1 EACH PO DAILY July 25, 2014 1:00am Completed/Discontinued Medications Medication Drug Class(es) Dates Sig (Normalized) Sig (Original) acetaminophen 325 mg / HYDROcodone bitartrate 5 mg oral tablet (20 sources) Opioid Agonist Start: 08-06-2014 End: 05-25-2023 Hydrocodone-Acetami nophen 5-325 mg tablet Discontinued 1 {tbl} PO EVERY 6 HOURS NEEDED as needed for Pain 03 14January 30, 2023 May 25, 2023 8:23pm Start: 08-06-2014 End: 05-25-2023 take 1 tablet by mouth every six hours as needed Hydrocodone-Acetaminophen Discontinued 1 TABLET PO EVERY 6 HOURS NEEDED 03 14January 30, 2023 May 25, 2023 7:23pm atorvastatin 40 mg oral tablet (20 sources) HMG-CoA Reductase Inhibitor Start: 07-25-2014 End: 05-25-2023 take 1 tablet by mouth at bedtime Atorvastatin 40 MG tablet Discontinued 40 mg PO AT BEDTIME July 25, 2014 1:00am May 25, 2023 9:09pm brimonidine tartrate 2 mg/ml ophthalmic solution (8 sources) alpha-Adrenergic Agonist Start: 06-14-2023 End: 12-07-2023 Brimonidine 0.2 % Drops Discontinued 1 NMA EACH EYE 0600,1800 0 June 14, 2023 1:00am December 07, 2023 9:08pm Start: 06-14-2023 Brimonidine Ac tive 1 DRP EACH EYE 0600,1800 0 June 14, 2023 1:00am brimonidine / Timolol (9 sources) alpha-Adrenergic Agonist, beta-Adrenergic Teresita Start: 05-25-2023 End: 06-14-2023 Brimonidine-Timolol Discontinued 1 DRP OPHTHALMIC 0700,1900 May 25, 2023 1:00am June 14, 2023 8:44am Start: 05-25-2023 End: 06-14-2023 Brimonidine-Timolol Disconti nued 1 DRP OPHTHALMIC 0700,1900 May 25, 2023 12:00am June 14, 2023 7:44am Start: 05-25-2023 Brimonidine-Ti molol Active 1 DRP OPHTHALMIC 0700,1899May 25, 2023 12:00am Brimonidine-Timolol 0.2-0.5 % drops (1 source) Start: 05-25-2023 End: 06-14-2023 Brimonidine-Timolol 0.2-0.5 % drops Discontinued 1 NMA OPHTHALMIC 0700,1900 May 25, 2023 1:00am June 14, 2023 8:44am calcium ascorbate 50 mg / ferrous asparto glycinate 50 mg / polysaccharide iron complex 100 mg / succinic acid 50 mg oral capsule (20 sources) Start: 08-06-2014 End: 05-25-2023 Iron Aspgl,Ps Complex-Vit C-Sa (Ferrex 150 Plus) 150 MG capsule Discontinued 150 mg PO DAILY WITH MEALS August 06, 2014 1:00am May 25, 2023 9:10pm CALCIUM CARB-CHOLECALCIFEROL (1 source) Start: 10-22-2015 take 1 tablet by mouth once daily CALCIUM PLUS VITAMIN D3 600-800 MG-UNIT TABS One tablet by mouth daily CALCIUM CARB-CHOLECALCIFEROL [id number] Liliana Alcocer CNP CALCIUM CARB-CHOLECALCIFEROL (1 source) Start: 10-22-2015 take 1 tablet by mouth once daily CALCIUM PLUS VITAMIN D3 600-800 MG-UNIT TABS One tablet by mouth daily CALCIUM CARB-CHOLECALCIFEROL [id number] Liliana Alcocer CNP calcium carbonate 1500 mg oral tablet (20 sources) Start: 07-25-2014 End: 05-25-2023 take 1 tablet by mouth once daily Calcium Carbonate (Caltrate 600) 600 MG tablet Discontinued 600 mg PO DAILY July 25, 2014 1:00am May 25, 2023 9:10pm take 1 tablet by mouth once martinez y CALTRATE 600 TABS One tablet by mouth daily CALCIUM CARBONATE TABS [id number] Juana Donovan LPN dapagliflozin 10 mg oral tablet (10 sources) Sodium-Glucose Cotransporter 2 Inhibitor Start: 05-25-2023 End: 12-07-2023 take 1 tablet by mouth once daily Dapagliflozin Propanediol (Farxiga) 10 mg tablet Discontinued 10 mg PO DAILY May 25, 2023 1:00am December 07, 2023 9:08pm dextromethorphan hydrobromide 2 mg/ml / guaiFENesin 20 mg/ml oral solution (8 sources) Uncompetitive E-raczwd-X-aspartat e Receptor Antagonist, Sigma-1 Agonist Start: 06-14-2023 End: 12-07-2023 take 1 mL by mouth every six hours as needed for cough Dextromethorphan-G uaifenesin 10-100 mg/5 mL Syrup Discontinued 10 mL PO EVERY 6 HOURS NEEDED as needed for COUGH 0 June 14, 2023 1:00am December 07, 2023 9:08pm Start: 06-14-2023 take 1 mL by mouth every six hours as needed Dextromethorphan-Guaifenesin Active 10 M L PO EVERY 6 HOURS NEEDED June 14, 2023 1:00am folic acid 1 mg oral tablet (2 sources) Start: 10-22-2015 take 2 tablets by mouth once daily FOLIC ACID 1 MG TABS Two tablets by mouth daily FOLIC ACID [id number] Liliana Alcocer CNP gabapentin 100 mg oral capsule (9 sources) Anti-epileptic Agent Start: 05-31-2023 End: 12-07-2023 take 1 capsule by mouth three times daily at mealtime Gabapentin 100 mg Capsule Discontinued 100 mg PO 3 TIMES DAILY WITH MEALS 0 May 31, 2023 1:00am December 07, 2023 9:09pm glimepiride 2 mg oral tablet (10 sources) Sulfonylurea Start: 05-25-2023 End: 05-25-2023 take 1 tablet by mouth once daily Glimepiride 2 mg tablet Discontinued 2 mg PO DAILY May 25, 2023 1:00am May 25, 2023 9:10pm lactulose 667 mg/ml oral solution (18 sources) Osmotic Laxative Start: 05-25-2023 End: 12-07-2023 take 20 g by mouth twice daily Lactulose 20 gram/30 mL Solution Discontinued 20 g PO TWICE A DAY June 14, 2023 1:00am December 07, 2023 9:09pm leflunomide 10 mg oral tablet (20 sources) Antirheumatic Agent Start: 07-25-2014 End: 05-25-2023 take 1 tablet by mouth once daily Leflunomide (Arava) 10 MG tablet Discontinued 10 mg PO DAILY July 25, 2014 1:00am May 25, 2023 9:11pm leucovorin 15 mg oral tablet (2 sources) Folate Analog Start: 10-22-2015 take 1 tablet by mouth every week LEUCOVORIN CALCIUM 15 MG TABS 1 tab po weekly LEUCOVORIN CALCIUM [id number] Liliana Alcocer CNP lidocaine 0.05 mg/mg medicated patch (20 sources) Antiarrhythmic, Amide Local Anesthetic Start: 06-23-2023 End: 12-07-2023 Lidocaine 5 % Adhesive Patch,Medicated Discontinued 1 NMA TOPICAL TWICE A DAY June 23, 2023 1:00am December 07, 2023 9:09pm Please contact the information source for Protocol details. Start: 05-31-2023 End: 06-23-2023 Lidocaine 5 % Adhesive Patch ,Medicated Discontinued 1 NMA TOPICAL DAILY 0 June 14, 2023 1:00am June 23, 2023 4:17pm Please contact the information source for Protocol details. Start: 05-31-2023 End: 06-14-2023 Lidocaine 5 % Adhesive Patch ,Medicated Discontinued 1 NMA TOPICAL DAILY 0 May 31, 2023 1:00am June 14, 2023 8:45am Please contact the information source for Protocol details. Menthol / Zinc Oxide (8 sources) Start: 06-14-2023 End: 12-07-2023 Menthol-Zinc Oxide (Calmosep joy) 0.44-20.6 % Ointment Discontinued 1 NMA TOPICAL TWICE A DAY 0 June 14, 2023 1:00am December 07, 2023 9:09pm Please contact the information source for Protocol details. Start: 06-14-2023 Menthol-Zinc O xide (Calmoseptine) 0.44-20.6 % Ointment Active 1 APPLIC TOPICAL TWICE A DAY 0 June 14, 2023 1:00am Start: 06-14-2023 Menthol-Zinc O xide (Calmoseptine) 0.44-20.6 % Ointment Active 1 APPLIC TOPICAL TWICE A DAY 0 June 14, 2023 12:00am metFORMIN hydrochloride 500 mg oral tablet (20 sources) Biguanide Start: 08-06-2014 End: 05-25-2023 take 1 tablet by mouth once daily at mealtime Metformin 500 MG tablet Discontinued 500 mg PO DAILY WITH MEALS August 06, 2014 1:00am May 25, 2023 8:32pm methotrexate 2.5 mg oral tablet (6 sources) Folate Analog Metabolic Inhibitor Start: 10-22-2015 take 7 tablets by mouth every week METHOTREXATE 2.5 MG TABS 7 tabs PO weekly METHOTREXATE SODIUM [id number] Jud Hernandez Start: 10-22-2015 take 6 tablets by mo uth every week METHOTREXATE 2.5 MG TABS 6 tabs PO weekly METHOTREXATE SODIUM [id number] Kylie Grimm Start: 10-22-2015 take 5 tablets by mo uth every week METHOTREXATE 2.5 MG TABS 5 tabs PO weekly METHOTREXATE SODIUM [id number] Liliana Alcocer SUPERVISOR [employer] E[employer] OFFICE MULTIPLE VITAMIN (1 source) take 1 tablet by mouth once daily MULTIVITAMINS CAPS One tablet by mouth daily MULTIPLE VITAMIN [id number] Juana Donovan LPN MULTIPLE VITAMIN (1 source) take 1 tablet by mouth once daily MULTIVITAMINS CAPS One tablet by mouth daily MULTIPLE VITAMIN [id number] Juana Donovan LPN POLYETHYLENE GLYCOL 3350 (2 sources) Osmotic Laxative End: 6 MIRALAX POWD prn POLYETHYLENE GLYCOL 3350 [id number] Liliana Alcocer SUPERVISOR [employer] E[employer] OFFICE MIRALAX POWD prn POLYETHYLENE GLYCOL 3350 [id number] Kashif Kaur polyethylene glycol 3350 048148 mg / potassium chloride 2970 mg / sodium bicarbonate 6740 mg / sodium chloride 5860 mg / sodium sulfate 16140 mg powder for oral solution (16 sources) Osmotic Laxative Start: 01-19-2023 End: 05-25-2023 Peg 3350-Electrolytes (Golytely) 236-22.74-6.74 -5.86 gram recon soln Discontinued 240 mL PO EVERY 10 MINUTES NEEDED as needed for constipation 3999January 19, 2023 2:46pm May 25, 2023 8:24pm until fecal effluent is clear Start: 01-19-2023 End: 05-25-2023 Peg 3350-Electrolytes (Golyt marisa) 236-22.74-6.74 -5.86 gram recon soln Discontinued 240 ML PO EVERY 10 MINUTES NEEDED 3999January 19, 2023 2:46pm May 25, 2023 8:24pm until fecal effluent is clear POLYETHYLENE GLYCOL 3350 (2 sources) End: 10-22-2015 MIRALAX POWD prn POLYETHYLENE GLYCOL 3350 [id number] Liliana Chopra Carlyn SUPERVISOR [employer] OFF[employer] MIRALAX POWD prn POLYETHYLENE GLYCOL 3350 [id number] Kashif Kaur rivaroxaban 10 mg oral tablet (20 sources) Factor Xa Inhibitor Start: 07-28-2014 End: 08-08-2014 take 1 tablet by mouth once daily Rivaroxaban (Xarelto) 10 MG tablet Discontinued 10 mg PO DAILY@0600 10 July 28, 2014 1:00am August 08, 2014 9:54am simethicone 80 mg chewable tablet (18 sources) Start: 05-25-2023 End: 12-07-2023 take 1 tablet by mouth at bedtime Simethicone 80 mg Tablet,Chewable Discontinued 80 mg PO AFTER MEALS AND AT BEDTIME 0 June 14, 2023 1:00am December 07, 2023 9:09pm Timolol Maleate (8 sources) beta-Adrenergic Teresita Start: 06-14-2023 End: 12-07-2023 Timolol Maleate 0.5 % Drops Discontinued 1 NMA EACH EYE 0600,1800 0 June 14, 2023 1:00am December 07, 2023 9:09pm Start: 06-14-2023 Timolol Maleat e Active 1 DRP EACH EYE 0600,1800 0 June 14, 2023 1:00am Start: 06-14-2023 Timolol Maleat e Active 1 DRP EACH EYE 0600,1800 0 June 14, 2023 12:00am traMADol hydrochloride 50 mg oral tablet (17 sources) Opioid Agonist Start: 06-14-2023 End: 12-07-2023 take 1 tablet by mouth every six hours as needed for pain Tramadol 50 mg Tablet Discontinued 50 mg PO EVERY 6 HOURS NEEDED as needed for Pain Score 1-5 12 June 14, 2023 1:00am December 07, 2023 9:09pm Start: 05-31-2023 End: 06-14-2023 take 1 tablet by mouth three times daily as needed for pain Tramadol 50 mg Tablet Discontinued 50 mg PO 3 TIMES DAILY NEEDED as needed for Pain Score 6-10 0 May 31, 2023 1:00am June 14, 2023 8:45am vitamin b 12 0.5 mg sublingual tablet (4 sources) Vitamin B12 Start: 10-22-2015 B-12 500 MCG S UBL Take 3 SL daily as needed CYANOCOBALAMIN [id number] Kylie Grimm Problems Active Problems Problem Classification Problem Date Documented Da te Episodic/Chronic Diabetes mellitus without complication (18 sources) Diabetes mellitus; Translations: [Type 2 diabetes mellitus without complications] Onset: 12-18-2023 05-31-2023 Chronic Comment on above: ON MED Diabetes mellitus without complication (15 sources) Hyperglycemia; Translations: [Hyperglycemia, unspecified] 01-30-2023 Episodic Disorders of lipid metabolism (20 sources) Dyslipidemia; Translations: [Hyperlipidemia, unspecified] 07-25-2014 Chronic Essential hypertension (1 source) Essential (primary) hypertension; Translations: [Essential (primary) hypertension] Onset: 12-18-2023 Chronic Fracture of neck of femur (hip) (20 sources) Closed fracture of hip; Translations: [Fracture of unspecified part of neck of left femur, initial encounter for closed fracture] 07-25-2014 Episodic Glaucoma (16 sources) Glaucoma; Translations: [Unspecified glaucoma] 05-31-2023 Chronic Intestinal obstruction without hernia (16 sources) Fecal impaction of colon; Translations: [Fecal impaction] 05-31-2023 Episodic Malaise and fatigue (18 sources) Asthenia; Translations: [Other malaise] Onset: 08-06-2024 05-31-2023 Episodic Osteoarthritis (1 source) Primary osteoarthritis, right shoulder; Translations: [Primary osteoarthritis, right shoulder] Onset: 11-01-2023 Chronic Osteoporosis (20 sources) Osteoporosis; Translations: [Age-related osteoporosis without current pathological fracture] 07-25-2014 Chronic Other connective tissue disease (9 sources) Spasm; Translations: [Other muscle spasm] 05-31-2023 Episodic Other connective tissue disease (9 sources) Recurrent falls ; Translations: [Repeated falls] 05-31-2023 Episodic Other connective tissue disease (7 sources) Repeated falls; Translations: [History of fall] 05-31-2023 Episodic Other connective tissue disease (7 sources) Other muscle spasm; Translations: [Spasm of muscle] 05-31-2023 Episodic Other fractures (9 sources) Compression fracture of lumbar spine; Translations: [Collapsed vertebra, not elsewhere classified, lumbar region, initial encounter for fracture] 06-01-2023 Episodic Other fractures (7 sources) Collapsed vertebra, not elsewhere classified, lumbar region, initial encounter for fracture; Translations: [Pathologic fracture of vertebrae] 05-31-2023 Episodic Other injuries and conditions due to external causes (14 sources) H/O: vertebral fracture; Translations: [Personal history of (healed) traumatic fracture] 01-30-2023 Episodic Other lower respiratory disease (2 sources) Fibrosis of lung; Translations: [Pulmonary fibrosis, unspecified] Onset: 04-09-2014 04-09-2014 Chronic Other nervous system disorders (1 source) Metabolic encephalopathy; Translations: [Metabolic encephalopathy] 12-21-2023 Chronic Other nervous system disorders (1 source) Metabolic encephalopathy; Translations: [Metabolic encephalopathy] Onset: 12-20-2023 Chronic Other nutritional; endocrine; and metabolic disorders (10 sources) Adult failure to thrive syndrome; Translations: [Adult failure to thrive] 05-25-2023 Episodic Other screening for suspected conditions (not mental disorders or infectious disease) (2 sources) Computed tomography result abnormal; Translations: [Abnormal findings on diagnostic imaging of other specified body structures] Onset: 12-20-2023 12-11-2023 Chronic Rheumatoid arthritis and related disease (20 sources) Rheumatoid arthritis; Translations: [Rheumatoid arthritis, unspecified] Onset: 12-20-2023 07-25-2014 Chronic Spondylosis; intervertebral disc disorders; other back problems (1 source) Spondylosis without myelopathy or radiculopathy, cervical region; Translations: [Spondylosis without myelopathy or radiculopathy, cervical region] Onset: 10-08-2024 Chronic Thyroid disorders (4 sources) Hypothyroidism, unspecified; Translations: [Hypothyroidism, unspecified] Onset: 10-19-2023 Chronic Past or Other Problems Problem Classification Problem Date Documented Da te Episodic/Chronic Fever of unknown origin (3 sources) Fever; Translations: [Fever, unspecified] Onset: 12-20-2023 12-07-2023 Episodic Genitourinary symptoms and ill-defined conditions (1 source) Other difficulties with micturition; Translations: [Other difficulties with micturition] Onset: 12-18-2023 Episodic Nutritional deficiencies (2 sources) Deficiency of macronutrients; Translations: [Unspecified protein-calorie malnutrition] Onset: 04-09-2014 04-09-2014 Episodic Other aftercare (1 source) Other long-term (current) drug therapy; Translations: [Other intermodal customer service (current) drug therapy] Onset: 12-18-2023 Episodic Other connective tissue disease (1 source) Muscle weakness (generalized); Translations: [Muscle weakness (generalized)] Onset: 12-18-2023 Episodic Other lower respiratory disease (2 sources) Lung mass; Translations: [Solitary pulmonary nodule] Onset: 04-09-2014 04-09-2014 Episodic Other nutritional; endocrine; and metabolic disorders (16 sources) Adult failure to thrive; Translations: [Adult failure to thrive] Onset: 12-20-2023 05-31-2023 Episodic Other upper respiratory disease (2 sources) Hoarse; Translations: [Dysphonia] Onset: 10-22-2015 10-22-2015 Episodic Spondylosis; intervertebral disc disorders; other back problems (20 sources) Backache; Translations: [Dorsalgia, unspecified] Onset: 04-11-2024 01-30-2023 Episodic Comment on above: She is to follow up with Dr. Price after she is discharged from the facility. She and her family stated that this should be the first week of july. Results Test Name Value Interpretation Reference Range Facility Cerv Spine 2 or 3 Viewson Cerv Spine 2 or 3 Views [facility] Imaging Services [address] [place] [address] [id number] Cerv Spine 2 or 3 Views MR#: [id number] Acct: [id number] Name: MARTHA ENGEL Rep #: [id number] : 1940 F 84 From: Olayinka Gilbert MD PCP: Dr. Victor M Cochran MD Status: [facility] CLI Study: Cerv Spine 2 or 3 Views Date of Exam: 10/02/24 Exam# [id number] Ordering Dr: Mookie Price MD PROCEDURE: CERV SPINE 2 OR 3 VIEWS 10/02/2024 REASON FOR EXAM: SPONDYLOSIS WITHOUT MYELOPATHY OR RADICULOPATHY, CERVICAL REGION TECHNIQUE: 3 views of the cervical spine. FINDINGS: Vertebrae: No acute fracture. disc spaces: Mild disc space narrowing in the lower cervical spine consistent with degenerative disc disease. Alignment: Anatomic alignment. soft tissues: Unremarkable. Other: RAD/Cerv Spine 2 or 3 Views IMPRESSION: MILD CERVICAL DEGENERATIVE CHANGES. Disclaimer: Reading Location: [id number] CC: Dr. Mookie Price MD; Dr. Victor M Cochran MD Mechanical Engineering Specialist: Signed Normal [facility] Spine Thoracic (Routine)on 0 03-11-2024 Spine Thoracic (Routine) [facility] Imaging Services [address] [place], [place] [address] Spine Thoracic (Routine) MR#: [id number] Acct: [id number] Name: MARTHA NEGEL Rep #: [id number] : [id number] F 84 From: Kael Penn MD PCP: Dr. Victor M Cochran MD Status: [facility] Study: Spine Thoracic (Routine) Date of Exam: Exam# [id number] Ordering Dr: Mookie Price MD [id number] STUDY: MRI THORACIC SPINE WITHOUT CONTRAST REASON FOR EXAM: Female, 84 years old. Radiculopathy. TECHNIQUE: Standardized fat and water weighted pulse sequences were obtained in the sagittal and axial planes. COMPARISON: CT chest with contrast 12/08/2023. FINDINGS: Moderate kyphosis of the thoracic spine at the T10 pancake compression fracture deformity level. There is no substantial scoliosis. T1-2, T2-3, T3-4, T4-5, T5-6, T6-7, T7-8, T8-9, T9-10, T10-11, T11-12: Pronounced pancake flattening compression fracture deformity of the T10 vertebral body is hypointense on T1, T2 and STIR sequences. There is retropulsion of the posterior inferior fracture fragment causing only minimal narrowing of the still capacious central canal. Mild to moderate compression fracture deformity of the T9 vertebral body is hypointense on T1, mildly hypointense on T2 and no obvious edema on STIR sequence. Moderately pronounced old anterior wedge compression fracture of the T8 vertebral body, mild to moderate old anterior wedge compression fracture of the upper T11 vertebral body and moderately pronounced central compression fracture of the upper T12 vertebral body with more than two thirds loss of the central vertebral body height. Mild old central compression fracture of the L1 superior endplate, L2 superior endplate and L3 superior endplate. No thoracic extruded disc fragment. Normal central canal and intervertebral neuroforamina. Normal visualized thoracic cord. Normal conus medullaris that terminates at the lower L1 vertebral body level. The soft tissue structures are unremarkable. MRI/Spine Thoracic (Routine) IMPRESSION: 1. Pronounced old pancake flattening compression fracture deformity of the T10 vertebral body with small retropulsion of the posterior inferior corner of the fracture fragment. This is causing only minimal narrowing of still capacious central canal and no associated cord compression. 2. Near complete healing of mild to moderate compression fracture deformity of the T9 vertebral body. There is very minimal if any residual bone edema of the T9 vertebral body. 3. Moderately pronounced old anterior wedge compression fracture of T8 vertebral body. 4. Mild to moderate old anterior wedge compression fracture of the upper T11 vertebral body. 5. Moderately pronounced central compression fracture of the upper T12 vertebral body with more than two thirds loss of the central vertebral body height. 6. Mild old central compression fractures of the superior endplates of L1, L2 on L3. 7. Normal thoracic spinal cord. Electronically Signed: Kael Penn MD at 10:23 EDT , CC: Dr. Mookie Price MD; Dr. Victor M Cochran MD Mechanical Engineering Specialist: Signed Normal [facility] BMP with eGFRon 02-27-2024 AGE 84 years Normal [facility] Comment on above: Performed By: #### 2 29917 #### [facility],[address] [place] [address] Anion gap [Moles/Vol] 9 mmol/L Low 10 - 20 [facility] Comment on above: Performed By: #### 2 44695 #### [facility],[address] [place] [address] 87780 BMP with eGFR Normal [facility] Comment on above: Result Comment: BASI C METABOLIC PANEL Performed By: #### 2 93790 #### [facility],[address] [place] [address] 66858 Calcium [Mass/Vol] 9.8 mg/dL Normal 8.5 - 10.1 [facility] Comment on above: Performed By: #### 2 29974 #### [facility],[address] [place] [address] 89612 Chloride [Moles/Vol] 103 mmol/L Normal 98 - 107 [facility] Comment on above: Performed By: #### 2 29535 #### [facility],[address] [place] [address] 69299 CO2 [Moles/Vol] 32.9 mmol/L High 21.0 - 32.0 [facility] Comment on above: Performed By: #### 2 65820 #### [facility],[address] [place] [address] 39996 Creatinine [Mass/Vol] 0.82 mg/dL Normal 0.55 - 1.02 [facility] Comment on above: Performed By: #### 2 56053 #### [facility],[address] [place] [address] 69349 GFR/1.73 sq M.predicted among non-blacks MDRD (S/P/Bld) [Vol rate/Area] mL/min/{1.73_m2} Normal 60 - 999 [facility] Comment on above: Performed By: #### 2 66886 #### [facility],[address] [place] [address] 30534 Result Comment: ACCO RDING TO THE NATIONAL KIDNEY DISEASE EDUCATION PROGRAM(NKDE), A NORMAL eGFR IS A VALUE GREATER THAN OR EQUAL TO 60 ML/MIN/1.73 SQ METERS. CHRONIC KIDNEY DISEASE: <60mL/MIN/1.73 SQ METERS KIDNEY FAILURE: <15mL/MIN/1.73 SQ METERS THIS TEST SHOULD ONLY BE USED FOR PATIENTS 18 YEARS OF AGE AND OLDER. Glucose [Mass/Vol] 116 mg/dL High 74 - 106 [facility] Comment on above: Performed By: #### 2 57985 #### [facility],[address] [place] [address] 05055 Potassium [Moles/Vol] 3.6 mmol/L Normal 3.5 - 5.1 [facility] Comment on above: Performed By: #### 2 13040 #### [facility],[address] [place] [address] 27299 Sodium [Moles/Vol] 141 mmol/L Normal 136 - 145 [facility] Comment on above: Performed By: #### 2 19103 #### [facility],[address] [place] [address] 55409 Urea nitrogen [Mass/Vol] 14 mg/dL Normal 7 - 18 [facility] Comment on above: Performed By: #### 2 84468 #### [facility],[address] [place] [address] 96509 BMP with eGFRon 02-23-2024 AGE 84 years Normal [facility] Comment on above: Performed By: #### 2 33398 #### [facility],[address] [place] [address] 71557 Anion gap [Moles/Vol] 12 mmol/L Normal 10 - 20 [facility] Comment on above: Performed By: #### 2 11728 #### [facility],[address] [place] [address] 71858 BMP with eGFR Normal [facility] Comment on above: Result Comment: BASI C METABOLIC PANEL Performed By: #### 2 04302 #### [facility],[address] [place] [address] 17667 Calcium [Mass/Vol] 10.1 mg/dL Normal 8.5 - 10.1 [facility] Comment on above: Result Comment: RESU LT REPEATED Performed By: #### 2 53727 #### [facility],[address] [place] [address] 69272 Chloride [Moles/Vol] 104 mmol/L Normal 98 - 107 [facility] Comment on above: Performed By: #### 2 78647 #### [facility],[address] [place] [address] CO2 [Moles/Vol] 28.3 mmol/L Normal 21.0 - 32.0 [facility] Comment on above: Performed By: #### 2 57317 #### [facility],[address] [place], [place] [address] Creatinine [Mass/Vol] 0.73 mg/dL Normal 0.55 - 1.02 [facility] Comment on above: Performed By: #### 2 58686 #### [facility],[address] [place], [place] [address] GFR/1.73 sq M.predicted among non-blacks MDRD (S/P/Bld) [Vol rate/Area] mL/min/{1.73_m2} Normal 60 - 999 [facility] Comment on above: Performed By: #### 2 74114 #### [facility],[address] [place], [place] [address] Result Comment: ACCO RDING TO THE NATIONAL KIDNEY DISEASE EDUCATION PROGRAM(NKDE), A NORMAL eGFR IS A VALUE GREATER THAN OR EQUAL TO 60 ML/MIN/1.73 SQ METERS. CHRONIC KIDNEY DISEASE: <60mL/MIN/1.73 SQ METERS KIDNEY FAILURE: <15mL/MIN/1.73 SQ METERS THIS TEST SHOULD ONLY BE USED FOR PATIENTS 18 YEARS OF AGE AND OLDER. Glucose [Mass/Vol] 133 mg/dL High 74 - 106 [facility] Comment on above: Performed By: #### 2 58095 #### [facility],[address] [place] [address] 48021 Potassium [Moles/Vol] 3.8 mmol/L Normal 3.5 - 5.1 [facility] Comment on above: Performed By: #### 2 68451 #### [facility],[address] [place] [address] Sodium [Moles/Vol] 140 mmol/L Normal 136 - 145 [facility] Comment on above: Performed By: #### 2 10843 #### [facility],[address] [place] [address] Urea nitrogen [Mass/Vol] 13 mg/dL Normal 7 - 18 [facility] Comment on above: Performed By: #### 2 27558 #### [facility],[address] [place] [address] CBC + DIFFon 02-23-2024 Baso # 0.02 x10EE3/UL Normal 0.00 - 0.10 [facility] Comment on above: Performed By: #### 2 66901 #### [facility],[address] [place] [address] 94474 Basophils/100 WBC (Bld) 0.3 % Normal 0.0 - 2.0 [facility] Comment on above: Performed By: #### 2 82706 #### [facility],[address] [place] [address] 50489 Basophils/100 WBC (Bld) 2.0 % Normal 0.0 - 2.0 [facility] Comment on above: Performed By: #### 2 78894 #### [facility],[address] [place], [place] [address] CBC + DIFF Normal [facility] Comment on above: Result Comment: CBC- COMPLETE BLOOD COUNT Performed By: #### 2 11339 #### [facility],[address] [place] [address] 49309 CELL COUNT 100 Normal [facility] Comment on above: Performed By: #### 2 92692 #### [facility],[address] [place], [place] [address] EO 2.0 % Normal 0.0 - 7.0 [facility] Comment on above: Performed By: #### 2 48338 #### [facility],[address] [place] [address] 73489 EO # 0.27 x10EE3/UL Normal 0.00 - 0.50 [facility] Comment on above: Performed By: #### 2 30543 #### [facility],[address] [place], [place] [address] Eosinophils/100 WBC (Bld) 4.1 % Normal 0.0 - 7.0 [facility] Comment on above: Performed By: #### 2 29630 #### [facility],[address] [place] [address] Erythrocyte distribution width (RBC) [Ratio] 13.9 % Normal 12.0 - 15.6 [facility] Comment on above: Performed By: #### 2 98156 #### [facility],[address] [place] [address] Hematocrit (Bld) [Volume fraction] 35.5 % Normal 34.0 - 46.0 [facility] Comment on above: Performed By: #### 2 33913 #### [facility],[address] [place], [place] [address] Hemoglobin (Bld) [Mass/Vol] 11.7 g/dL Low 12.0 - 16.0 [facility] Comment on above: Performed By: #### 2 39109 #### [facility],[address] [place] [address] 56437 Lymph # 1.40 x10EE3/UL Normal 0.80 - 2.80 [facility] Comment on above: Performed By: #### 2 92552 #### [facility],[address] [place], [place] [address] Lymphocytes/100 WBC (Bld) 21.0 % Normal 20.0 - 45.0 [facility] Comment on above: Performed By: #### 2 32026 #### [facility],[address] [place] [address] Lymphocytes/100 WBC (Bld) 19 % Low 20 - 45 [facility] Comment on above: Performed By: #### 2 01828 #### [facility],[address] [place] [address] MANUAL DIFF SEE BELOW Normal [facility] Comment on above: Performed By: #### 2 37493 #### [facility],[address] [place] [address] MCH (RBC) [Entitic mass] 32 pg Normal 27 - 33 [facility] Comment on above: Performed By: #### 2 42391 #### [facility],[address] [place] [address] MCHC 33 X10 3 Normal 32 - 36 [facility] Comment on above: Performed By: #### 2 84722 #### [facility],[address] [place] [address] MCV (RBC) [Entitic vol] 96 fL Normal 80 - 99 [facility] Comment on above: Performed By: #### 2 35087 #### [facility],[address] [place] [address] Auglaize # 0.52 x10EE3/UL Normal 0.20 - 1.00 [facility] Comment on above: Performed By: #### 2 44278 #### [facility],[address] [place] [address] MONOS 6 % Normal 0 - 10 [facility] Comment on above: Performed By: #### 2 92177 #### [facility],[address] [place] [address] MONOS % 7.8 % Normal 0.0 - 10.0 [facility] Comment on above: Performed By: #### 2 47033 #### [facility],[address] [place] [address] Morphology Jarrett (Bld) [Interp] REVIEWED Normal [facility] Comment on above: Performed By: #### 2 82301 #### [facility],[address] [place] [address] 10368 Neut # 4.44 x10EE3/UL Normal 1.50 - 7.10 [facility] Comment on above: Performed By: #### 2 82430 #### [facility],[address] [place] [address] 39028 Neutrophils/100 WBC (Bld) 66.8 % Normal 46.0 - 76.0 [facility] Comment on above: Performed By: #### 2 66644 #### [facility],[address] [place], [place] [address] PLATELET 432 x10EE3/UL Normal 150 - 450 [facility] Comment on above: Performed By: #### 2 86280 #### [place] [phone] Platelet mean volume (Bld) [Entitic vol] 6.7 fL Normal 6.6 - 10.5 [facility] Comment on above: Result Comment: AUTO MATED DIFFERENTIAL Performed By: #### 2 61690 #### [address] [address] RBC 3.69 x 10EE6/UL Low 4.10 - 5.30 [facility] Comment on above: Performed By: #### 2 88515 #### [facility],[address] [place] [address] 74049 SEGS 71 % Normal 46 - 76 [facility] Comment on above: Performed By: #### 2 84493 #### [address] [address] WBC 6.7 x 10EE3/UL Normal 4.5 - 10.8 [facility] Comment on above: Performed By: #### 2 28188 #### [place] [phone] T4-FREE (FREE THYROXINE)on 0 02-13-2024 Free T4 [Mass/Vol] 1.31 ng/dL Normal 0.76 - 1.46 [facility] Comment on above: Result Comment: P otential of falsely elevated results when biotin concentrations are > 10 ng/mL. Performed By: #### 2 82578 #### [facility],[address] [place] [address] TSHon 02-13-2024 TSH Qn 3.40 m[IU]/L Normal 0.35 - 3.74 [facility] Comment on above: Performed By: #### 2 94536 #### [facility],[address] [place] [address] MICROALBUMIN RANDOM URINE W/ CREATININEon 01-19-2024 CREATININE UR <13.00 Normal [facility] Comment on above: Result Comment: Micr oalbumin/Creat Ratio Performed By: #### 2 39544 #### [facility],[address] [place] [address] MICROALBUMIN UR <0.13 Normal 0.1 - 11.6 [facility] Comment on above: Performed By: #### 2 54791 #### [facility],[address] [place] [address] UACR 11 mg/g Normal [facility] Comment on above: Performed By: #### 2 61402 #### [facility],[address] [place] [address] 46974 TSHon 01-15-2024 TSH Qn 4.75 m[IU]/L High 0.35 - 3.74 [facility] Comment on above: Performed By: #### 2 23322 #### [facility],[address] [place] [address] 05715 BMP with eGFRon 12-18-2023 AGE 83 years Normal [facility] Comment on above: Performed By: #### 2 49550 #### [facility],[address] [place] [address] 53064 Anion gap [Moles/Vol] 8 mmol/L Low 10 - 20 [facility] Comment on above: Performed By: #### 2 26279 #### [facility],[address] [place] [address] 90774 BMP with eGFR Normal [facility] Comment on above: Result Comment: BASI C METABOLIC PANEL Performed By: #### 2 05202 #### [facility],[address] [place] [address] 55583 Calcium [Mass/Vol] 9.0 mg/dL Normal 8.5 - 10.1 [facility] Comment on above: Performed By: #### 2 78573 #### [facility],[address] [place] [address] 89904 Chloride [Moles/Vol] 102 mmol/L Normal 98 - 107 [facility] Comment on above: Performed By: #### 2 00306 #### [facility],[address] [place] [address] 41776 CO2 [Moles/Vol] 31.3 mmol/L Normal 21.0 - 32.0 [facility] Comment on above: Performed By: #### 2 89799 #### [facility],[address] [place] [address] 42258 Creatinine [Mass/Vol] 0.69 mg/dL Normal 0.55 - 1.02 [facility] Comment on above: Performed By: #### 2 63533 #### [facility],[address] [place] [address] 56748 GFR/1.73 sq M.predicted among non-blacks MDRD (S/P/Bld) [Vol rate/Area] mL/min/{1.73_m2} Normal 60 - 999 [facility] Comment on above: Performed By: #### 2 43524 #### [facility],[address] [place] [address] 50708 Result Comment: ACCO RDING TO THE NATIONAL KIDNEY DISEASE EDUCATION PROGRAM(NKDE), A NORMAL eGFR IS A VALUE GREATER THAN OR EQUAL TO 60 ML/MIN/1.73 SQ METERS. CHRONIC KIDNEY DISEASE: <60mL/MIN/1.73 SQ METERS KIDNEY FAILURE: <15mL/MIN/1.73 SQ METERS THIS TEST SHOULD ONLY BE USED FOR PATIENTS 18 YEARS OF AGE AND OLDER. Glucose [Mass/Vol] 191 mg/dL High 74 - 106 [facility] Comment on above: Performed By: #### 2 15862 #### [facility],[address] [place] [address] Potassium [Moles/Vol] 3.7 mmol/L Normal 3.5 - 5.1 [facility] Comment on above: Performed By: #### 2 15646 #### [facility],[address] [place], [place] [address] Sodium [Moles/Vol] 138 mmol/L Normal 136 - 145 [facility] Comment on above: Performed By: #### 2 50825 #### [facility],[address] [place], [place] [address] Urea nitrogen [Mass/Vol] 16 mg/dL Normal 7 - 18 [facility] Comment on above: Performed By: #### 2 89215 #### [facility],[address] [place] [address] 99786 CBC + DIFFon 12-18-2023 ATY LYMP 0 % Normal [facility] Comment on above: Performed By: #### 2 18280 #### [facility],[address] [place], [place] [address] BANDS 4 % Normal 0 - 5 [facility] Comment on above: Performed By: #### 2 66910 #### [facility],[address] [place] [address] 33846 Baso # 0.05 x10EE3/UL Normal 0.00 - 0.10 [facility] Comment on above: Performed By: #### 2 91707 #### [facility] [place] [address] 11126 Basophils/100 WBC (Bld) 0.9 % Normal 0.0 - 2.0 [facility] Comment on above: Performed By: #### 2 32265 #### [facility],[address] [place] [address] 54306 Basophils/100 WBC (Bld) 0.0 % Normal 0.0 - 2.0 [facility] Comment on above: Performed By: #### 2 42779 #### [facility],[address] [place] [address] 74184 CBC + DIFF Normal [facility] Comment on above: Result Comment: CBC- COMPLETE BLOOD COUNT Performed By: #### 2 37007 #### [facility],[address] [place] [address] 73513 CELL COUNT 100 Normal [facility] Comment on above: Performed By: #### 2 66434 #### [facility],[address] [place] [address] 85369 EO 5.0 % Normal 0.0 - 7.0 [facility] Comment on above: Performed By: #### 2 64304 #### [facility],[address] [place] [address] 89282 EO # 0.14 x10EE3/UL Normal 0.00 - 0.50 [facility] Comment on above: Performed By: #### 2 13555 #### [facility],[address] [place] [address] 21297 Eosinophils/100 WBC (Bld) 2.2 % Normal 0.0 - 7.0 [facility] Comment on above: Performed By: #### 2 14231 #### [facility],[address] [place] [address] 00830 Erythrocyte distribution width (RBC) [Ratio] 15.5 % Normal 12.0 - 15.6 [facility] Comment on above: Performed By: #### 2 19554 #### [facility],[address] [place] [address] 71074 Hematocrit (Bld) [Volume fraction] 30.8 % Low 34.0 - 46.0 [facility] Comment on above: Performed By: #### 2 18154 #### [facility],[address] [place] [address] 56817 Hemoglobin (Bld) [Mass/Vol] 9.9 g/dL Low 12.0 - 16.0 [facility] Comment on above: Performed By: #### 2 61873 #### [facility],[address] [place] [address] 92552 Lymph # 1.91 x10EE3/UL Normal 0.80 - 2.80 [facility] Comment on above: Performed By: #### 2 15129 #### [facility],[address] [place] [address] 27372 Lymphocytes/100 WBC (Bld) 29.7 % Normal 20.0 - 45.0 [facility] Comment on above: Performed By: #### 2 86343 #### [facility],[address] [place] [address] 01902 Lymphocytes/100 WBC (Bld) 31 % Normal 20 - 45 [facility] Comment on above: Performed By: #### 2 59949 #### [facility],[address] [place] [address] 92909 MANUAL DIFF SEE BELOW Normal [facility] Comment on above: Performed By: #### 2 15684 #### [facility],[address] [place] [address] 27663 MCH (RBC) [Entitic mass] 31 pg Normal 27 - 33 [facility] Comment on above: Performed By: #### 2 94205 #### [facility],[address] [place] [address] 17175 MCHC 32 X10 3 Normal 32 - 36 [facility] Comment on above: Performed By: #### 2 21573 #### [facility],[address] [place] [address] MCV (RBC) [Entitic vol] 98 fL Normal 80 - 99 [facility] Comment on above: Performed By: #### 2 84766 #### [facility],[address] [place] [address] META 0 % Normal 0 - 1 [facility] Comment on above: Performed By: #### 2 91110 #### [facility],[address] [place] [address] Metamyelocytes/100 WBC (Bld) 0 % Normal [facility] Comment on above: Performed By: #### 2 35516 #### [facility],[address] [place] [address] Auglaize # 0.57 x10EE3/UL Normal 0.20 - 1.00 [facility] Comment on above: Performed By: #### 2 57862 #### [facility],[address] [place] [address] MONOS 7 % Normal 0 - 10 [facility] Comment on above: Performed By: #### 2 32423 #### [facility],[address] [place] [address] MONOS % 8.9 % Normal 0.0 - 10.0 [facility] Comment on above: Performed By: #### 2 47100 #### [facility],[address] [place] [address] Morphology Jarrett (Bld) [Interp] SEE BELOW Normal [facility] Comment on above: Performed By: #### 2 01787 #### [place] [address] Neut # 3.76 x10EE3/UL Normal 1.50 - 7.10 [facility] Comment on above: Performed By: #### 2 35169 #### [place] [address] Neutrophils/100 WBC (Bld) 58.4 % Normal 46.0 - 76.0 [facility] Comment on above: Performed By: #### 2 04131 #### [facility],[address] [place] [address] 66881 NRBC 0 /100 Normal [facility] Comment on above: Performed By: #### 2 59726 #### [facility],[address] [place] [address] 30564 PLATELET 579 x10EE3/UL High 150 - 450 [facility] Comment on above: Performed By: #### 2 16114 #### [facility],[address] [place] [address] 41367 Platelet mean volume (Bld) [Entitic vol] 6.6 fL Normal 6.6 - 10.5 [facility] Comment on above: Result Comment: AUTO MATED DIFFERENTIAL Performed By: #### 2 59803 #### [facility],[address] [place] [address] 89459 PLT EST INCREASED Normal [facility] Comment on above: Performed By: #### 2 80787 #### [facility],[address] [place] [address] 89448 RBC 3.15 x 10EE6/UL Low 4.10 - 5.30 [facility] Comment on above: Performed By: #### 2 91283 #### [facility],[address] [place] [address] 45207 SEGS 53 % Normal 46 - 76 [facility] Comment on above: Performed By: #### 2 34807 #### [facility],[address] [place] [address] 92919 WBC 6.4 x 10EE3/UL Normal 4.5 - 10.8 [facility] Comment on above: Performed By: #### 2 22614 #### [facility],[address] [place] [address] 51733 OTHER 0 Normal [facility] Comment on above: Performed By: #### [id number] #### [facility],[address] [place] [id number] HEMOGLOBIN A1C (POM)on 12-17 Glucose [Mass/Vol] 217.3 mg/dL High 0.0 - 0.0 [facility] Comment on above: Result Comment: BLDo HEMOGLOBIN A1C REFERENCE RANGESBLDo Suggested Diagnosis HbA1c(%) HbA1C (mmol/mol Diabetic >/=6.5 >/=48 Prediabetes 5.7 - 6.4 39 - 47 Normal <5.7 <39 Performed By: #### [id number] #### [facility],[address] [place] [address] [id number] HbA1c (Bld) [Mass fraction] 9.2 % High 0.0 - 6.5 [facility] Comment on above: Performed By: #### [id number] #### [facility],[address] [place] [address] [id number] Basic Metabolic Profile (BMP )on 12-15-2023 BUN Normal 7-18 [facility] Comment on above: Result Comment: Canc elled via OM: Order cancelled - Patient discharged Performed By: #### L 501.080 #### [facility] [address] [place], [address] BUN/CRE Normal 10-20 [facility] Comment on above: Result Comment: Canc elled via OM: Order cancelled - Patient discharged Performed By: #### L 501.080 #### [facility] [address] [place], [address] CA,Total Normal 8.5-10.1 [facility] Comment on above: Result Comment: Canc elled via OM: Order cancelled - Patient discharged Performed By: #### L 501.080 #### [facility] [address] [place], [address] CL Normal 98-107 [facility] Comment on above: Result Comment: Canc elled via OM: Order cancelled - Patient discharged Performed By: #### L 501.080 #### [facility] [address] [place], [address] CO2 Normal 21.0-32.0 [facility] Comment on above: Result Comment: Canc elled via OM: Order cancelled - Patient discharged Performed By: #### L 501.080 #### [facility] [address] [place], [address] CREAT,SERUM Normal 0.55-1.02 [facility] Comment on above: Result Comment: Canc elled via OM: Order cancelled - Patient discharged Performed By: #### L 501.080 #### [facility] [address] [place], [address] EST GFR Normal >60 [facility] Comment on above: Result Comment: Canc elled via OM: Order cancelled - Patient discharged Performed By: #### L 501.080 #### [facility] [address] [place], [address] EST GFR - AA Normal >60 [facility] Comment on above: Result Comment: Canc elled via OM: Order cancelled - Patient discharged Performed By: #### L 501.080 #### [facility] [address] [place], [address] GAP Normal 5-15 [facility] Comment on above: Result Comment: Canc elled via OM: Order cancelled - Patient discharged Performed By: #### L 501.080 #### [facility] [address] [place], [address] GLU Normal 74-106 [facility] Comment on above: Result Comment: Canc elled via OM: Order cancelled - Patient discharged Performed By: #### L 501.080 #### [facility] [address] [place], [address] Potassium Normal 3.5-5.1 [facility] Comment on above: Result Comment: Canc elled via OM: Order cancelled - Patient discharged Performed By: #### L 501.080 #### [facility] [address] [place], [address] Basic Metabolic Profile (BMP) Normal 136-145 [facility] Comment on above: Result Comment: Canc elled via OM: Order cancelled - Patient discharged Performed By: #### L 501.080 #### [facility] [address] [place], [address] CBC W/Diff, Automatedon 07-0 5-2023 Absolute Neut Normal 2.0-7.7 [facility] Comment on above: Result Comment: Canc elled via OM: Order cancelled - Patient discharged Performed By: #### L 501.080 #### [facility] [address] [place], [address] HCT Normal 37-47 [facility] Comment on above: Result Comment: Canc elled via OM: Order cancelled - Patient discharged Performed By: #### L 501.080 #### [facility] [address] [place], [address] HGB Normal 12.0-15.0 [facility] Comment on above: Result Comment: Canc elled via OM: Order cancelled - Patient discharged Performed By: #### L 501.080 #### [facility] [address] [place], [address] MCH Normal 27.0-32.0 [facility] Comment on above: Result Comment: Canc elled via OM: Order cancelled - Patient discharged Performed By: #### L 501.080 #### [facility] [address] [place], [address] MCHC Normal 32-36 [facility] Comment on above: Result Comment: Canc elled via OM: Order cancelled - Patient discharged Performed By: #### L 501.080 #### [facility] [address] [place], [address] MCV Normal 81-99 [facility] Comment on above: Result Comment: Canc elled via OM: Order cancelled - Patient discharged Performed By: #### L 501.080 #### [facility] [address] [place], [address] NEUT% Normal 47-70 [facility] Comment on above: Result Comment: Canc elled via OM: Order cancelled - Patient discharged Performed By: #### L 501.080 #### [facility] [address] [place], [address] PLT Normal 150-450 [facility] Comment on above: Result Comment: Canc elled via OM: Order cancelled - Patient discharged Performed By: #### L 501.080 #### [facility] [address] [place], [address] RBC Normal 4.2-5.4 [facility] Comment on above: Result Comment: Canc elled via OM: Order cancelled - Patient discharged Performed By: #### L 501.080 #### [facility] [address] [place], [address] RDW CV Normal 11.6-14.6 [facility] Comment on above: Result Comment: Canc elled via OM: Order cancelled - Patient discharged Performed By: #### L 501.080 #### [facility] [address] [place], [address] RDW SD Normal 35.1-43.9 [facility] Comment on above: Result Comment: Canc elled via OM: Order cancelled - Patient discharged Performed By: #### L 501.080 #### [facility] [address] [place], [address] WBC Normal 4.4-11.0 [facility] Comment on above: Result Comment: Canc elled via OM: Order cancelled - Patient discharged Performed By: #### L 501.080 #### [facility] [address] [place], [address] Basic Metabolic Profile (BMP )on 12-14-2023 BUN Normal 7-18 [facility] Comment on above: Result Comment: Canc elled via OM: Order cancelled - Patient discharged Performed By: #### L 501.080 #### [facility] [address] [place], [address] BUN/CRE Normal 10-20 [facility] Comment on above: Result Comment: Canc elled via OM: Order cancelled - Patient discharged Performed By: #### L 501.080 #### [facility] [address] [place], [address] CA,Total Normal 8.5-10.1 [facility] Comment on above: Result Comment: Canc elled via OM: Order cancelled - Patient discharged Performed By: #### L 501.080 #### [facility] [address] [place], [address] CL Normal 98-107 [facility] Comment on above: Result Comment: Canc elled via OM: Order cancelled - Patient discharged Performed By: #### L 501.080 #### [facility] [address] [place], [address] CO2 Normal 21.0-32.0 [facility] Comment on above: Result Comment: Canc elled via OM: Order cancelled - Patient discharged Performed By: #### L 501.080 #### [facility] [address] [place], [address] CREAT,SERUM Normal 0.55-1.02 [facility] Comment on above: Result Comment: Canc elled via OM: Order cancelled - Patient discharged Performed By: #### L 501.080 #### [facility] [address] [place], [address] EST GFR Normal >60 [facility] Comment on above: Result Comment: Canc elled via OM: Order cancelled - Patient discharged Performed By: #### L 501.080 #### [facility] [address] [place], [address] EST GFR - AA Normal >60 [facility] Comment on above: Result Comment: Canc elled via OM: Order cancelled - Patient discharged Performed By: #### L 501.080 #### [facility] [address] [place], [address] GAP Normal 5-15 [facility] Comment on above: Result Comment: Canc elled via OM: Order cancelled - Patient discharged Performed By: #### L 501.080 #### [facility] [address] [place], [address] GLU Normal 74-106 [facility] Comment on above: Result Comment: Canc elled via OM: Order cancelled - Patient discharged Performed By: #### L 501.080 #### [facility] [address] [place], [address] Potassium Normal 3.5-5.1 [facility] Comment on above: Result Comment: Canc elled via OM: Order cancelled - Patient discharged Performed By: #### L 501.080 #### [facility] [address] [place], [address] Basic Metabolic Profile (BMP) Normal 136-145 [facility] Comment on above: Result Comment: Canc elled via OM: Order cancelled - Patient discharged Performed By: #### L 501.080 #### [facility] [address] [place], [address] CBC W/Diff, Automatedon 07-0 -2023 Absolute Neut Normal 2.0-7.7 [facility] Comment on above: Result Comment: Canc elled via OM: Order cancelled - Patient discharged Performed By: #### L 501.080 #### [facility] [address] [place], [address] HCT Normal 37-47 [facility] Comment on above: Result Comment: Canc elled via OM: Order cancelled - Patient discharged Performed By: #### L 501.080 #### [facility] [address] [place], [address] HGB Normal 12.0-15.0 [facility] Comment on above: Result Comment: Canc elled via OM: Order cancelled - Patient discharged Performed By: #### L 501.080 #### [facility] [address] [place], [address] MCH Normal 27.0-32.0 [facility] Comment on above: Result Comment: Canc elled via OM: Order cancelled - Patient discharged Performed By: #### L 501.080 #### [facility] [address] [place], [address] MCHC Normal 32-36 [facility] Comment on above: Result Comment: Canc elled via OM: Order cancelled - Patient discharged Performed By: #### L 501.080 #### [facility] [address] [place], [address] MCV Normal 81-99 [facility] Comment on above: Result Comment: Canc elled via OM: Order cancelled - Patient discharged Performed By: #### L 501.080 #### [facility] [address] [place], [address] NEUT% Normal 47-70 [facility] Comment on above: Result Comment: Canc elled via OM: Order cancelled - Patient discharged Performed By: #### L 501.080 #### [facility] [address] [place], [address] PLT Normal 150-450 [facility] Comment on above: Result Comment: Canc elled via OM: Order cancelled - Patient discharged Performed By: #### L 501.080 #### [facility] [address] [place], [address] RBC Normal 4.2-5.4 [facility] Comment on above: Result Comment: Canc elled via OM: Order cancelled - Patient discharged Performed By: #### L 501.080 #### [facility] [address] [place], [address] RDW CV Normal 11.6-14.6 [facility] Comment on above: Result Comment: Canc elled via OM: Order cancelled - Patient discharged Performed By: #### L 501.080 #### [facility] [address] [place], [address] RDW SD Normal 35.1-43.9 [facility] Comment on above: Result Comment: Canc elled via OM: Order cancelled - Patient discharged Performed By: #### L 501.080 #### [facility] [address] [place], [address] WBC Normal 4.4-11.0 [facility] Comment on above: Result Comment: Canc elled via OM: Order cancelled - Patient discharged Performed By: #### L 501.080 #### [facility] [address] [place], [address] Basic Metabolic Profile (BMP )on 12-13-2023 BUN/CRE 17.9 RATIO Normal 10-20 [facility] Comment on above: Performed By: #### L 501.080 #### [facility] [address] [place], [address] CA,Total 8.3 mg/dL Low 8.5-10.1 [facility] Comment on above: Performed By: #### L 501.080 #### [facility] [address] [place], [address] Chloride [Moles/Vol] 104 mmol/L Normal 98-107 [facility] Comment on above: Performed By: #### L 501.080 #### [facility] [address] [place], [address] CO2 [Moles/Vol] 29.0 mmol/L Normal 21.0-32.0 [facility] Comment on above: Performed By: #### L 501.080 #### [facility] [address] [place], [address] Creatinine [Mass/Vol] 0.61 mg/dL Normal 0.55-1.02 [facility] Comment on above: Result Comment: The validity of the calculated GFR GFRAA in patients over 70 years has not been determined. Clinical correlation is essential. Performed By: #### L 501.080 #### [facility] [address] [place], [address] ECRCL 33.65 ml/min Normal [facility] Comment on above: Performed By: #### L 501.080 #### [facility] [address] [place], [address] EST GFR - AA 119 mL/min Normal >60 [facility] Comment on above: Result Comment: Afri can Czech GFR Calc Performed By: #### L 501.080 #### [facility] [address] [place], [address] GAP 5 Normal 5-15 [facility] Comment on above: Performed By: #### L 501.080 #### [facility] [address] [place], [address] GFR/1.73 sq M.predicted among non-blacks MDRD (S/P/Bld) [Vol rate/Area] 99 mL/min/{1.73_m2} Normal >60 [facility] Comment on above: Result Comment: Non- GFR Calc Performed By: #### L 501.080 #### [facility] [address] [place], [address] Glucose [Mass/Vol] 130 mg/dL High 74-106 [facility] Comment on above: Result Comment: Fast ing Glucose result greater than or equal to 126 mg/dL suggests DIABETES MELLITUS per A.D.A. criteria. Performed By: #### L 501.080 #### [facility] [address] [place], [address] Potassium [Moles/Vol] 3.3 mmol/L Low 3.5-5.1 [facility] Comment on above: Performed By: #### L 501.080 #### [facility] [address] [place], [address] Sodium [Moles/Vol] 138 mmol/L Normal 136-145 [facility] Comment on above: Performed By: #### L 501.080 #### [facility] [address] [place], [address] Urea nitrogen [Mass/Vol] 11 mg/dL Normal 7-18 [facility] Comment on above: Performed By: #### L 501.080 #### [facility] [address] [place], [address] Bedside Glucoseon 12-13-2023 FINGERSTICK GLU 283 mg/dL High 74-106 [facility] Comment on above: Result Comment: LESLIE GEMENT OF PATIENT CARE PER NURSING PROTOCOL Performed By: #### L 501.080 #### [facility] [address] [place], [address] FINGERSTICK GLU 119 mg/dL High 74-106 [facility] Comment on above: Result Comment: LESLIE GEMENT OF PATIENT CARE PER NURSING PROTOCOL Performed By: #### L 501.080 #### [facility] [address] [place], [address] CBC W/Diff, Automatedon -0 ATYPICAL LYMPH RARE Normal [facility] Comment on above: Performed By: #### L 501.080 #### [facility] [address] [place], [address] Culture, Blood (WB)on 2023 CUB No growth in [address] [facility] Comment on above: Performed By: #### L 501.080 #### [facility] [address] [place], [address] CUB No growth in [address] [facility] Comment on above: Performed By: #### L 300.4310, L500.4050, L300.3900, L100.0100, L503.6005 #### [facility] [address] [place], [address] Basic Metabolic Profile (BMP )on 12-12-2023 BUN/CRE 23.1 RATIO High 10-20 [facility] Comment on above: Performed By: #### L 501.080 #### [facility] [address] [place], [address] CA,Total 8.3 mg/dL Low 8.5-10.1 [facility] Comment on above: Performed By: #### L 501.080 #### [facility] [address] [place], [address] Chloride [Moles/Vol] 106 mmol/L Normal 98-107 [facility] Comment on above: Performed By: #### L 501.080 #### [facility] [address] [place], [address] CO2 [Moles/Vol] 28.0 mmol/L Normal 21.0-32.0 [facility] Comment on above: Performed By: #### L 501.080 #### [facility] [address] [place], [address] Creatinine [Mass/Vol] 0.69 mg/dL Normal 0.55-1.02 [facility] Comment on above: Result Comment: The validity of the calculated GFR GFRAA in patients over 70 years has not been determined. Clinical correlation is essential. Performed By: #### L 501.080 #### [facility] [address] [place], [address] ECRCL 33.81 ml/min Normal [facility] Comment on above: Performed By: #### L 501.080 #### [facility] [address] [place], [address] EST GFR - AA 104 mL/min Normal >60 [facility] Comment on above: Result Comment: Afri can Czech GFR Calc Performed By: #### L 501.080 #### [facility] [address] [place], [address] GAP 4 Low 5-15 [facility] Comment on above: Performed By: #### L 501.080 #### [facility] [address] [place], [address] GFR/1.73 sq M.predicted among non-blacks MDRD (S/P/Bld) [Vol rate/Area] 86 mL/min/{1.73_m2} Normal >60 [facility] Comment on above: Result Comment: Non- GFR Calc Performed By: #### L 501.080 #### [facility] [address] [place], [address] Glucose [Mass/Vol] 238 mg/dL High 74-106 [facility] Comment on above: Result Comment: Gluc ose result greater than or equal to 200 mg/dL suggests DIABETES MELLITUS per A.D.A. criteria. Performed By: #### L 501.080 #### [facility] [address] [place], [address] Potassium [Moles/Vol] 3.5 mmol/L Normal 3.5-5.1 [facility] Comment on above: Performed By: #### L 501.080 #### [facility] [address] [place], [address] Sodium [Moles/Vol] 138 mmol/L Normal 136-145 [facility] Comment on above: Performed By: #### L 501.080 #### [facility] [address] [place], [address] Urea nitrogen [Mass/Vol] 16 mg/dL Normal 7-18 [facility] Comment on above: Performed By: #### L 501.080 #### [facility] [address] [place], [address] Bedside Glucoseon 12-12-2023 FINGERSTICK GLU 227 mg/dL High [address] [place] [address] Comment on above: Result Comment: LESLIE GEMENT OF PATIENT CARE PER NURSING PROTOCOL Performed By: #### L 501.080 #### [facility] [address] [place], [address] FINGERSTICK GLU 228 mg/dL High [address] [place] [address] Comment on above: Result Comment: LESLIE GEMENT OF PATIENT CARE PER NURSING PROTOCOL Performed By: #### L 501.080 #### [facility] [address] [place], [address] FINGERSTICK GLU 297 mg/dL High [address] [place] [address] Comment on above: Result Comment: LESLIE GEMENT OF PATIENT CARE PER NURSING PROTOCOL Performed By: #### L 501.080 #### [facility] [address] [place], [address] FINGERSTICK GLU 212 mg/dL High [address] [place] [address] Comment on above: Result Comment: LESLIE GEMENT OF PATIENT CARE PER NURSING PROTOCOL Performed By: #### L 501.080 #### [facility] [address] [place], [address] CBC W/Diff, Automatedon 07-0 ATYPICAL LYMPH 1+ Normal [facility] Comment on above: Performed By: #### L 501.080 #### [facility] [address] [place], [address] MR/PN.GIon 12-12-2023 MR/PN.[facility] Medical Records Department [address] [place] [address] Progress Note - GI 12/12/23 1656 MR#: [id number] Acct: [id number] Name: MARTHA ENGEL Rep #: [id number] : 1940 83 From: Varghese Friend DO PCP: Dr. Victor M Cochran MD Status:ADM IN Location: [place] [address] Subjective Subjective Patient underwent an upper endoscopy yesterday. No etiology to her abnormal CT scan was seen yesterday. She is tolerating a diet. Objective Data Objective Data Vital Signs: Vital Signs Temp Pulse Resp BP Pulse Ox O2 Del Method 97.5 F L 89 18 122/63 H 99 Room Air 12/12/23 14:29 12/12/23 14:29 12/12/23 14:29 12/12/23 14:29 12/12/23 14:29 12/12/23 14:29 Oxygen Delivery Method Room Air Weight: 88 lb 10.013 oz Body Mass Index (BMI) 15.2 Intake Output: Intake and Output for Last 24 Hours 12/10/23 12/11/23 12/12/23 23:59 23:59 23:59 Intake Total 2260 / 2260 638.5 / 638.5 1001 / 1001 Output Total 200 / 200 Balance 2260 / 2260 638.5 / 638.5 801 / 801 Lab / Micro Data 12/12/23 06:28 12/12/23 06:28 Labs: Laboratory Results - last 24 hr 12/09/23 06:30: JANY-1 Antibody Not Reportable, SS-A/Ro IgG Antibody Not Reportable, SS-B/La IgG Antibody Not Reportable, Sm (Estrella) Antibody Not Reportable, DATA MINING ANALYST Antibody Not Reportable, Scl-70 Scleroderma Ab Not Reportable, Double Strand DNA Ab Not Reportable, Centromere B Antibody Not Reportable 12/11/23 16:58: POC Glucose 100 12/11/23 21:24: POC Glucose 215 H 12/12/23 06:07: POC Glucose 212 H 12/12/23 06:28: WBC 9.8, RBC 2.98 L, Hgb 9.2 L, Hct 28.7 L, MCV 96.3, MCH 30.9, MCHC 32.1, RDW Std Deviation 54.7 H, RDW Coeff of Ed 15.7 H, Plt Count 220, MPV 9.2, Immature Gran % (Auto) 0.600, N eut % (Auto) 77.2 H, Lymph % (Auto) 16.0 L, [place] % (Auto) 3.7, Eos % (Auto) 2.3, Baso % (Auto) 0.2, Absolute Neuts (auto) 7.6, Absolute Lymphs (auto) 1.57, Nucleated RBC % 0, Atypical Lymphocytes 1+, Sodium 138, Potassium 3.5, Chloride 106, Carbon Dioxide 28.0, Anion Gap 4 L, BUN 16, Creatinine 0.69, Estim Creat Clear Calc 33.81, Est GFR (MDRD) Af Amer 104, Est GFR (MDRD) Non-Af 86, B UN/Creatinine Ratio 23.1 H, Glucose 238 H, Calcium 8.3 L 12/12/23 11:06: POC Glucose 297 H Micro: Microbiology 12/07/23 19:30 Urine, Catheterized Urine Culture - Final Culture exhibits no growth. 12/07/23 18:53 Blood Culture (Wb) - Left Forearm Blood Culture - Preliminary No growth in 48 hours. 12/07/23 18:55 Blood Culture (Wb) - Right Forearm Blood Culture - Preliminary No growth in 48 hours. 12/07/23 20:40 Mucosa - Nasopharyngeal Respiratory Panel (PCR) - Final 12/07/23 19:05 Mucosa - Nose SARS-CoV-2, Influenza RSV (PCR) - Final Physical Exam Narrative General: Alert, Oriented x3, Cooperative, No apparent distress HEENT: Atraumatic, PERRLA, EOMI, Normocephalic Oral: Moist Mucosa Neck: Supple, No JVD Lungs: Diminished, Normal air movement, No rhonchi, No wheeze, No rales Cardiovascular: Regular rate, Regular Rhythm, Normal S1, Normal S2, No murmurs Abdomen: Soft, Non Tender, Non-Distended, No Hepato-splenomegaly Extremities: No edema, Capillary Refill Less than 3 Seconds Skin: No rashes, No breakdown Musculoskeletal: No Tenderness to Palpation of Joints or Extremities Neurological: No focal neurological deficits, Motor Exam 5/5 strength throughout, Sensory exam intact to light touch and pain Psych/Mental Status: Normal Affect, Appropriate Assessment Plan Assessment/Plan (1) Abnormal CT scan: PLAN: No sign of malignancy inflammation or ulceration on upper GI tract. Patient is eating and doing well. Continue supportive care. Charges/Coding Visit Charges Inpatient E M: 71892 Subs Hosp L2 12/12/23 7199 Cosigner Signature (if applicable): CC: Signed Normal [facility] 12 Lead EKGon 12-11-2023 12 Lead EKG [facility] Cardiovascular Services [address] [place] [address] 12 Lead EKG 12/11/23 0513 MR#: [id number] Acct: [id number] Name: MARTHA ENGEL Rep #: [id number] : 1940 83 From: Bryson Wakefield MD Attending Dr: Dr. Saturnino Londono MD Status : ADM IN Ordering Dr: Ugo Khan MD Date: 12/11/23 Location: U Sex: F C Admitted: 12/08/23 Test Reason : PRE OP Blood Pressure : / mmHG Vent. Rate : 087 BPM Atrial Rate : 087 BPM P-R Int : 120 ms QRS Dur : 080 ms QT Int : 328 ms P-R-T Axes : 033 032 044 degrees QTc Int : 394 ms Normal sinus rhythm Normal ECG When compared with ECG of 25-MAY-2023 15:53, No significant change was found Confirmed by BRYSON WAKEFIELD MD ([id number]), digital editor KALE RHODES ([id number]) on 12/12/2023 5:55:18 AM Referred By: Confirmed By:BRYSON WAKEFIELD MD 12/12/23 0555 Date Bryson Wakefield MD CC: Dr. Ugo Khan MD; Dr. Saturnino Londono MD; Dr. Victor M Cochran MD Signed Normal [facility] ANIBAL w/ Reflex Mult Confirmon 12-11-2023 ANIBAL,DIRECT Negative Normal Negative [facility] Comment on above: Result Comment: Perf ormed at: - [facility] [address] [id number] Geotechnical Engineer: Valerio Martinez PhD, Phone: [phone] Performed By: #### L 501.080 #### [facility] [address] [place], [address] Basic Metabolic Profile (BMP )on 12-11-2023 BUN/CRE 25.0 RATIO High 10-20 [facility] Comment on above: Performed By: #### L 300.4310, L500.4050, L300.3900, L100.0100, L503.6005 #### [facility] [address] [place], [address] CA,Total 8.9 mg/dL Normal 8.5-10.1 [facility] Comment on above: Performed By: #### L 300.4310, L500.4050, L300.3900, L100.0100, L503.6005 #### [facility] [address] [place], [address] Chloride [Moles/Vol] 106 mmol/L Normal 98-107 [facility] Comment on above: Performed By: #### L 300.4310, L500.4050, L300.3900, L100.0100, L503.6005 #### [facility] [address] [place], [address] CO2 [Moles/Vol] 24.0 mmol/L Normal 21.0-32.0 [facility] Comment on above: Performed By: #### L 300.4310, L500.4050, L300.3900, L100.0100, L503.6005 #### [facility] [address] [place], [address] Creatinine [Mass/Vol] 0.72 mg/dL Normal 0.55-1.02 [facility] Comment on above: Result Comment: The validity of the calculated GFR GFRAA in patients over 70 years has not been determined. Clinical correlation is essential. Performed By: #### L 300.4310, L500.4050, L300.3900, L100.0100, L503.6005 #### [facility] [address] [place], [address] ECRCL 32.97 ml/min Normal [facility] Comment on above: Performed By: #### L 300.4310, L500.4050, L300.3900, L100.0100, L503.6005 #### [facility] [address] [place], [address] EST GFR - AA 99 mL/min Normal >60 [facility] Comment on above: Result Comment: Afri can Czech GFR Calc Performed By: #### L 300.4310, L500.4050, L300.3900, L100.0100, L503.6005 #### [facility] [address] [place], [address] GAP 7 Normal 5-15 [facility] Comment on above: Performed By: #### L 300.4310, L500.4050, L300.3900, L100.0100, L503.6005 #### [facility] [address] [place], [address] GFR/1.73 sq M.predicted among non-blacks MDRD (S/P/Bld) [Vol rate/Area] 82 mL/min/{1.73_m2} Normal >60 [facility] Comment on above: Result Comment: Non- GFR Calc Performed By: #### L 300.4310, L500.4050, L300.3900, L100.0100, L503.6005 #### [facility] [address] [place], [address] Glucose [Mass/Vol] 157 mg/dL High 74-106 [place] Comment on above: Result Comment: Fast ing Glucose result greater than or equal to 126 mg/dL suggests DIABETES MELLITUS per A.D.A. criteria. Performed By: #### L 300.4310, L500.4050, L300.3900, L100.0100, L503.6005 #### [facility] [address] [place], [address] Potassium [Moles/Vol] 3.5 mmol/L Normal 3.5-5.1 [facility] Comment on above: Performed By: #### L 300.4310, L500.4050, L300.3900, L100.0100, L503.6005 #### [facility] [address] [place], [address] Sodium [Moles/Vol] 137 mmol/L Normal 136-145 [facility] Comment on above: Performed By: #### L 300.4310, L500.4050, L300.3900, L100.0100, L503.6005 #### [facility] [address] [place], [address] Urea nitrogen [Mass/Vol] 18 mg/dL Normal 7-18 [facility] Comment on above: Performed By: #### L 300.4310, L500.4050, L300.3900, L100.0100, L503.6005 #### [facility] [address] [place], [address] Bedside Glucoseon 12-11-2023 FINGERSTICK GLU 215 mg/dL High 74-106 [facility] Comment on above: Result Comment: LESLIE MAXWELL OF PATIENT CARE PER NURSING PROTOCOL Performed By: #### L 300.4310, L500.4050, L300.3900, L100.0100, L503.6005 #### [facility] [address] [place], [address] FINGERSTICK GLU 100 mg/dL Normal 74-106 [facility] Comment on above: Result Comment: LESLIE GEMENT OF PATIENT CARE PER NURSING PROTOCOL Performed By: #### L 501.080 #### [facility] [address] [place], [address] FINGERSTICK GLU 134 mg/dL High 74-106 [facility] Comment on above: Result Comment: LESLIE GEMENT OF PATIENT CARE PER NURSING PROTOCOL Performed By: #### L 501.080 #### [facility] [address] [place], [address] CBC W/Diff, Automatedon 07-0 -2023 Absolute Lymph 1.02 X10 3/uL Normal 0.83-4.51 [facility] Comment on above: Performed By: #### L 300.4310, L500.4050, L300.3900, L100.0100, L503.6005 #### [facility] [address] [place], [address] Absolute Neut 7.1 X10 3/uL Normal 2.0-7.7 [facility] Comment on above: Performed By: #### L 300.4310, L500.4050, L300.3900, L100.0100, L503.6005 #### [facility] [address] [place], [address] Basophils/100 WBC (Bld) 0.1 % Normal 0-1 [facility] Comment on above: Performed By: #### L 300.4310, L500.4050, L300.3900, L100.0100, L503.6005 #### [facility] [address] [place], [address] Eosinophils/100 WBC (Bld) 1.9 % Normal 0-5 [facility] Comment on above: Performed By: #### L 300.4310, L500.4050, L300.3900, L100.0100, L503.6005 #### [facility] [address] [place], [address] Erythrocyte distribution width (RBC) [Ratio] 15.3 % High 11.6-14.6 [facility] Comment on above: Performed By: #### L 300.4310, L500.4050, L300.3900, L100.0100, L503.6005 #### [facility] [address] [place], [address] Hematocrit (Bld) [Volume fraction] 31.7 % Low 37-47 [facility] Comment on above: Performed By: #### L 300.4310, L500.4050, L300.3900, L100.0100, L503.6005 #### [facility] [address] [place], [address] Hemoglobin (Bld) [Mass/Vol] 10.4 g/dL Low 12.0-15.0 [facility] Comment on above: Performed By: #### L 300.4310, L500.4050, L300.3900, L100.0100, L503.6005 #### [facility] [address] [place], [address] IG% 0.600 Normal 0.0-0.9 [facility] Comment on above: Result Comment: IG% - Immature Granulocytes (promyelocytes, myelocytes and metamyelocytes) > 1% indicates that a LEFT SHIFT is Present. Performed By: #### L 300.4310, L500.4050, L300.3900, L100.0100, L503.6005 #### [facility] [address] [place], [address] Lymphocytes/100 WBC (Bld) 11.6 % Low 19-41 [facility] Comment on above: Performed By: #### L 300.4310, L500.4050, L300.3900, L100.0100, L503.6005 #### [facility] [address] [place], [address] MCH (RBC) [Entitic mass] 31.4 pg Normal 27.0-32.0 [facility] Comment on above: Performed By: #### L 300.4310, L500.4050, L300.3900, L100.0100, L503.6005 #### [facility] [address] [place], [address] MCHC (RBC) [Mass/Vol] 32.8 g/dL Normal 32-36 [facility] Comment on above: Performed By: #### L 300.4310, L500.4050, L300.3900, L100.0100, L503.6005 #### [facility] [address] [place], [address] MCV (RBC) [Entitic vol] 95.8 fL Normal 81-99 [facility] Comment on above: Performed By: #### L 300.4310, L500.4050, L300.3900, L100.0100, L503.6005 #### [facility] [address] [place], [address] Monocytes/100 WBC (Bld) 5.1 % Normal 0-10 [facility] Comment on above: Performed By: #### L 300.4310, L500.4050, L300.3900, L100.0100, L503.6005 #### [facility] [address] [place], [address] Neutrophils/100 WBC (Bld) 80.7 % High 47-70 [facility] Comment on above: Performed By: #### L 300.4310, L500.4050, L300.3900, L100.0100, L503.6005 #### [facility] [address] [place], [address] Nucleated RBC (Bld) [#/Vol] 0 10*3/uL Normal 0-5 [facility] Comment on above: Performed By: #### L 300.4310, L500.4050, L300.3900, L100.0100, L503.6005 #### [facility] [address] [place], [address] Platelet mean volume (Bld) [Entitic vol] 9.2 fL Normal 6.2-12.0 [facility] Comment on above: Performed By: #### L 300.4310, L500.4050, L300.3900, L100.0100, L503.6005 #### [facility] [address] [place], [address] Platelets (Bld) [#/Vol] 207 10*3/uL Normal 150-450 [facility] Comment on above: Performed By: #### L 300.4310, L500.4050, L300.3900, L100.0100, L503.6005 #### [facility] [address] [place], [address] RBC (Bld) [#/Vol] 3.31 10*6/uL Low 4.2-5.4 [facility] Comment on above: Performed By: #### L 300.4310, L500.4050, L300.3900, L100.0100, L503.6005 #### [facility] [address] [place], [address] RDW SD 54.1 fl High 35.1-43.9 [facility] Comment on above: Performed By: #### L 300.4310, L500.4050, L300.3900, L100.0100, L503.6005 #### [facility] [address] [place], [address] WBC (Bld) [#/Vol] 8.8 10*3/uL Normal 4.4-11.0 [facility] Comment on above: Performed By: #### L 300.4310, L500.4050, L300.3900, L100.0100, L503.6005 #### [facility] [address] [place], [address] EGD Reporton 12-11-2023 EGD Report [facility] Medical Records Department [address] [place] [address] EGD Report MR#: [id number] Acct: [id number] Name: MARTHA ENGEL Rep #: [id number] : 1940 83 From: Varghese Rajan DO PCP: Dr. Victor M Cochran MD Status:ADM IN Patient Name: Martha Engel Procedure Date: 12/11/2023 1:09 PM Date of : 1940 Age: 83 Procedure: Upper GI endoscopy Indications: Epigastric abdominal pain Providers: Varghese Rajan DO Medicines: Monitored Anesthesia Care Patient Profile: This is an 83 year old female. Refer to note in patient chart for documentation of history and physical. Patient has symptoms of acute epigastric abdominal pain. Complications: No immediate complications. Procedure: Pre-Anesthesia Assessment: - Prior to the procedure, a History and Physical was performed, and patient medications and allergies were reviewed. The risks and benefits of the procedure and the sedation options and risks were discussed with the patient. All questions were answered and informed consent was obtained. Patient identification and proposed procedure were verified by the physician. Mental Status Examination: normal. Respiratory Examination: clear to auscultation. CV Examination: normal. Prophylactic Antibiotics: The patient does not require prophylactic antibiotics. Prior Anticoagulants: The patient has taken no anticoagulant or antiplatelet agents. ASA Grade Assessment: IV - A patient with severe systemic disease that is a constant threat to life. After reviewing the risks and benefits, the patient was deemed in satisfactory condition to undergo the procedure. The anesthesia plan was to use monitored anesthesia care (MAC). Immediately prior to administration of medications, the patient was re-assessed for adequacy to receive sedatives. The heart rate, respiratory rate, oxygen saturations, blood pressure, adequacy of pulmonary ventilation, and response to care were monitored throughout the procedure. The physical status of the patient was re-assessed after the procedure. After obtaining informed consent, the endoscope was passed under direct vision. Throughout the procedure, the patient's blood pressure, pulse, and oxygen saturations were monitored continuously. The Endoscope was introduced through the mouth, and advanced to the second part of duodenum. The upper GI endoscopy was accomplished without difficulty. The patient tolerated the procedure well. Scope In: 1:19:29 PM Scope Out: 1:21:44 PM Total Procedure Duration Time 0 hours 2 minutes 15 seconds Findings: A non-obstructing Schatzki ring was found in the lower third of the esophagus. A medium-sized hiatal hernia was present. No other significant abnormalities were identified in a careful examination of the stomach. The first portion of the duodenum was normal. Impression: - Non-obstructing Schatzki ring. - Medium-sized hiatal hernia. - Normal first portion of the duodenum. - No specimens collected. Recommendation: - [facility]. - Resume regular diet. - Continue present medications. Procedure Code(s): --- Professional --- 19364, Esophagogastroduodeno scopy, flexible, transoral; diagnostic, including collection of specimen(s) by brushing or washing, when performed (separate procedure) CPT copyright 2021 [employer]. All rights reserved. The codes documented in this report are preliminary and upon recreation therapist review may be revised to meet current compliance requirements. Varghese Rajan DO 12/11/2023 1:24:22 PM This report has been signed electronically. Number of Addenda: 0 Note Initiated On: 12/11/2023 1:09 PM 12/11/23 1324 Date Varghese Mosleyignkamille Signature: Date (if indicated) CC: Dr. Victor M Cochran MD; Varghese Rajan DO Date Dictated: 12/11/23 1309 Date Transcribed: Mechanical Engineering Specialist: RF Signed Normal [facility] Hemoglobin A1con 12-11-2023 HbA1c (Bld) [Mass fraction] 8.2 % High 3.8-5.6 [facility] Comment on above: Result Comment: Norm al < 5.7 % Prediabetic 5.7 - 6.4 % Diabetic >or= 6.5 % Please note range changes. Performed By: #### L 501.080 #### [facility] [address] [facility] [place], [address] MR/CON.PCM.GIon 12-11-2023 MR/CON.PCM.[facility] Medical Records Department [address] [place] [address] Consultation - GI 12/11/23 1250 MR#: [id number] Acct: [id number] Name: MARTHA ENGEL Rep #: [id number] : 1940 83 From: Varghese Rajan DO PCP: Dr. Victor M Cochran MD Status:ADM IN Location: [place] [address] HPI Consult Data Date of Consult: 12/11/23 HPI Narrative Reason for Consultation: Abnormal imaging HPI Narrative: MARTHA ENGEL, is a 83 F who presented to the ED with altered mental status. The daughter does come over and help the patient with certain things. Today, the patient was not acting herself, the patient could barely get up off the chair. They did notice the patient felt hot. The patient was more confused today. The patient states he just generally does not feel well. She has a past medical history of Chronic anemia/Fe deficiency anemia, Anxiety and Depression, HTN, HLD, RA, Diabetes mellitus type II, Chronic back pain, Chronic constipation who presents to the [facility] ED on 12/07/23 with family reporting that the patient was significantly weak with difficulty even getting up out of a chair and subjectively felt warm and was mildly confused with general fatigue and malaise prompting family to bring patient in for ED evaluation. Workup in the ED included T97.4, heart 110, BP 161/97, respiratory rate 17, 97% on room air with Tmax in the ED 101.5, most recent vital signs T90.4, heart rate 100, BP 125/56, respiratory rate 20, 97% on room air, CBC with WBC 8.6, hemoglobin 11.2, MCV 96.6, platelet 293 without marked shift with lymphopenia, unremarkable coags, CMP with sodium 130, chloride 97, BUN/creatinine 12/0.82, GFR 70, glucose 282, hepatic profile not marked appearing, lactic acid 1.6, blood culture x 2 CT scan of the chest abdomen pelvis: Revealed some circumferential wall thickening in the gastric antrum and gastric body with clinical correlation for gastritis and cannot rule out malignancy. Therefore I was consulted for endoscopic evaluation of patient's abnormal CT scan. She does have some abdominal pain and has been having some anorexia without vomiting. [facility] Medical History COVID residential resident Loss of hearing Wears glasses Wears dentures Post-menopausal Cancer Forgetfulness Anxiety Open wound Pain Walker as ambulation aid Bladder disease Injury of back Syncope FTT (failure to thrive) in adult History of diverticulitis Chronic constipation Non-smoker History of pain when walking History of echocardiogram Hypertension Iron deficiency anemia Osteoarthritis Rheumatoid arthritis High cholesterol Diabetes Home Medications ???Medication ???Instructions ???Recorded ???Last Taken ???Type cholecalciferol (vitamin D3) 25 2,000 unit PO DAILY SUPPLEMENT 07/25/14 12/06/23 History mcg (1,000 unit) tablet (Vitamin D3) baclofen 10 mg tablet 10 mg PO QHS MUSCLE SPASMS 05/25/23 12/06/23 20:00 History acetaminophen 500 mg tablet 1,000 mg PO BID 12/07/23 12/06/23 History levothyroxine 25 mcg tablet 25 mcg PO DAILY 12/07/23 12/07/23 06:00 History Allergy/AdvReac Type Severity Reaction Status Date / Time alendronate sodium (From Allergy Anaphylaxis Verified 12/07/23 18:26 Fosamax) Penicillins Allergy Swelling Verified 12/07/23 18:26 Family History Mother Alzheimer disease Father Myocardial infarction Hypertension Heart disease CAD (coronary artery disease) Surgical History Hx of colonoscopy History of surgery on arm S/P ORIF (open reduction internal fixation) fracture Social History household members: none Smoking Status: Never smoker alcohol intake: never substance use type: does not use ROS ROS Narrative Admission Review of Systems: CONSTITUTIONAL: No weight loss, fever, chills, + weakness or fatigue. HEENT: Eyes: No visual loss, blurred vision, double vision or yellow sclerae. Ears, Nose, Throat: No hearing loss, sneezing, congestion, runny nose or sore throat. SKIN: No rash or itching, lesions, wounds. CARDIOVASCULAR: No chest pain, chest pressure or chest discomfort, palpitations, edema, orthopnea, syncopal events. RESPIRATORY: No shortness of breath, cough or sputum, wheezing, hemoptysis. GASTROINTESTINAL: +. No anorexia, nausea, vomiting or diarrhea, abdominal pain, melena, BRBPR. GENITOURINARY: No dysuria, frequency, urgency or retention. NEUROLOGICAL: + Family reported mild cognitive impairment. No headache, dizziness, syncope, paralysis, ataxia, numbness or tingling in the extremities, focal weakness, change in bowel or bladder control, seizure. MUSCULOSKELETAL: + muscle, back pain, joint pain or st (more content not included)... Normal [facility] MR/POSTOP.ANEon 12-11-2023 MR/POSTOP.[facility] Medical Records Department [address] [place] [address] Anesthesia Postop Eval I 12/11/23 1330 MR#: [id number] Acct: [id number] Name: MARTHA ENGEL Rep #: [id number] : 1940 83 From: Manohar Rodriguez PCP: Dr. Victor M Cochran MD Status:ADM IN Y Race: C Location: [place] [address] Anesthesia: Postop Eval I Current Vital Signs Temperature: 98.7 F Pulse Rate: 84 Blood Pressure: 94/52 Respiratory Rate: 16 Pulse Ox: 97 Oxygen Delivery Method: Room Air Assessment Airway patent: Yes Spontaneous unlabored respirations: Yes Mental status: Awake and Calm nausea: No Vomiting: No Anesthesia Complication: No Fluid Hydration Crystalloid volume administer (ml): 400 Total IV fluid infused: 400 Progress Note Anesthesia document: Postop Eval 1 completed: Yes 12/11/23 1338 Date Manohar Langigner Signature: Date CC: Signed Normal [facility] MR/BRBJHZVB6an 12-11-2023 [facility] Medical Records Department [address] [place] [address] Anesthesia Postop Eval II 12/11/23 1344 MR#: [id number] Acct: [id number] Name: MARTHA ENGEL Rep #: [id number] : 1940 83 From: Ugo Khan MD PCP: Dr. Victor M Cochran MD Status:ADM IN Y Race: C Location: [place] [address] Anesthesia Postop Eval I Sum Postop Eval Completion status Anesthesia document: Postop Eval 1 completed: Yes Anesthesia Postop Eval I Summary Anesthesia Postop Eval I Summary: Anesthesia Postop Eval I: Assessment Summary Airway patent Yes 12/11/23 13:38 [email or web address] Spontaneous unlabored Yes 12/11/23 13:38 [email or web address] respirations Mental status Awake,Calm 12/11/23 13:38 [email or web address] nausea No 12/11/23 13:38 [email or web address] Vomiting No 12/11/23 13:38 [email or web address] Anesthesia Postop Eval I: Fluid Summary Crystalloid volume administer 400 12/11/23 13:38 [email or web address] (ml) Colloids volume administered ( ml) Blood Product volume administered (ml) Total IV fluid infused 400 12/11/23 13:38 [email or web address] Anesthesia Postop Eval I: Summary Notes Anesthesia Complication No 12/11/23 13:38 [email or web address] Anesthesia Complication Comment: Post-operative progress note Anesthesia: Postop Eval II Evaluation Mental status: Awake Pain Level: 0 nausea: No Vomiting: No 12/11/23 1344 Date Ugo Langignkamille Signature: Date CC: Signed Normal [facility] Partial Thromboplast Timeon 12-11-2023 aPTT Coag (Bld) [Time] 32.1 s Normal 24.1-36.2 [facility] Comment on above: Performed By: #### L 501.080 #### [facility] [address] [place], [address] Prothrombin Time w/INRon INR Coag (PPP) [Relative time] 1.0 {INR} Normal [facility] Comment on above: Performed By: #### L 501.080 #### [facility] [address] [place], [address] PT Coag (PPP) [Time] 13.3 s Normal 11.7-14.9 [facility] Comment on above: Performed By: #### L 501.080 #### [facility] [address] [place], [address] Type AND Screenon 12-11-2023 Ab SCREEN GEL Negative Normal [facility] Comment on above: Order Comment: [id number] Performed By: #### L 501.080 #### [facility] [address] [place], [address] Basic Metabolic Profile (BMP )on 12-10-2023 BUN/CRE 19.2 RATIO Normal 10-20 [facility] Comment on above: Performed By: #### L 501.6710, L101.9900 #### [facility] [address] [place], [address] CA,Total 8.3 mg/dL Low 8.5-10.1 [facility] Comment on above: Performed By: #### L 501.6710, L101.9900 #### [facility] Laboratory [address] [place], [address] Chloride [Moles/Vol] 107 mmol/L Normal 98-107 [facility] Comment on above: Performed By: #### L 501.6710, L101.9900 #### [facility] [address] [place], [address] CO2 [Moles/Vol] 24.0 mmol/L Normal 21.0-32.0 [facility] Comment on above: Performed By: #### L 501.6710, L101.9900 #### [facility] [address] [place], [address] Creatinine [Mass/Vol] 0.83 mg/dL Normal 0.55-1.02 [facility] Comment on above: Result Comment: The validity of the calculated GFR GFRAA in patients over 70 years has not been determined. Clinical correlation is essential. Performed By: #### L 501.6710, L101.9900 #### [facility] [address] [place], [address] ECRCL 31.46 ml/min Normal [facility] Comment on above: Performed By: #### L 501.6710, L101.9900 #### [facility] [address] [place], [address] EST GFR - AA 84 mL/min Normal >60 [facility] Comment on above: Result Comment: Afri can Czech GFR Calc Performed By: #### L 501.6710, L101.9900 #### [facility] [address] [place], [address] GAP 6 Normal 5-15 [facility] Comment on above: Performed By: #### L 501.6710, L101.9900 #### [facility] [address] [place], [address] GFR/1.73 sq M.predicted among non-blacks MDRD (S/P/Bld) [Vol rate/Area] 69 mL/min/{1.73_m2} Normal >60 [facility] Comment on above: Result Comment: Non- GFR Calc Performed By: #### L 501.10, L101.9900 #### [facility] [address] [place], [address] Glucose [Mass/Vol] 137 mg/dL High 74-106 [place] Comment on above: Result Comment: Fast ing Glucose result greater than or equal to 126 mg/dL suggests DIABETES MELLITUS per A.D.A. criteria. Performed By: #### L 501.10, L101.9900 #### [facility] [address] [place], [address] Potassium [Moles/Vol] 3.5 mmol/L Normal 3.5-5.1 [facility] Comment on above: Performed By: #### L 501.6710, L101.9900 #### [facility] [address] [place], [address] Sodium [Moles/Vol] 137 mmol/L Normal 136-145 [place] Comment on above: Performed By: #### L 501.6710, L101.9900 #### [facility] [address] [place], [address] Urea nitrogen [Mass/Vol] 16 mg/dL Normal 7-18 [facility] Comment on above: Performed By: #### L 501.6710, L101.9900 #### [facility] [address] [place], [address] Bedside Glucoseon 12-09-2023 FINGERSTICK GLU 286 mg/dL High 74-106 [facility] Comment on above: Result Comment: LESLIE GEMENT OF PATIENT CARE PER NURSING PROTOCOL Performed By: #### L 501.080 #### [facility] [address] [place], [address] FINGERSTICK GLU 298 mg/dL High 74-106 [facility] Comment on above: Result Comment: LESLIE GEMENT OF PATIENT CARE PER NURSING PROTOCOL Performed By: #### L 300.4310, L500.4050, L300.3900, L100.0100, L503.6005 #### [facility] [address] [place], [address] FINGERSTICK GLU 232 mg/dL High 74-106 [facility] Comment on above: Result Comment: LESLIE GEMENT OF PATIENT CARE PER NURSING PROTOCOL Performed By: #### L 501.080 #### [facility] [address] [place], [address] FINGERSTICK GLU 138 mg/dL High 74-106 [facility] Comment on above: Result Comment: LESLIE GEMENT OF PATIENT CARE PER NURSING PROTOCOL Performed By: #### L 501.6710, L101.9900 #### [facility] [address] [place], [address] CBC W/Diff, Automatedon 06-3 0 Absolute Lymph 0.49 X10 3/uL Low 0.83-4.51 [facility] Comment on above: Performed By: #### L 501.6710, L101.9900 #### [facility] [address] [place], [address] Absolute Neut 6.8 X10 3/uL Normal 2.0-7.7 [facility] Comment on above: Performed By: #### L 501.6710, L101.9900 #### [facility] [address] [place], [address] Basophils/100 WBC (Bld) 0.3 % Normal 0-1 [facility] Comment on above: Performed By: #### L 501.6710, L101.9900 #### [facility] [address] [place], [address] Eosinophils/100 WBC (Bld) 0.6 % Normal 0-5 [facility] Comment on above: Performed By: #### L 501.6710, L101.9900 #### [facility] [address] [place], [address] Erythrocyte distribution width (RBC) [Ratio] 15.0 % High 11.6-14.6 [facility] Comment on above: Performed By: #### L 501.6710, L101.9900 #### [facility] [address] [place], [address] Hematocrit (Bld) [Volume fraction] 31.2 % Low 37-47 [facility] Comment on above: Performed By: #### L 501.6710, L101.9900 #### [facility] [address] [place], [address] Hemoglobin (Bld) [Mass/Vol] 10.2 g/dL Low 12.0-15.0 [facility] Comment on above: Performed By: #### L 501.6710, L101.9900 #### [facility] [address] [place], [address] IG% 0.400 Normal 0.0-0.9 [facility] Comment on above: Result Comment: IG% - Immature Granulocytes (promyelocytes, myelocytes and metamyelocytes) > 1% indicates that a LEFT SHIFT is Present. Performed By: #### L 501.6710, L101.9900 #### [facility] [address] [place], [address] Lymphocytes/100 WBC (Bld) 6.2 % Low 19-41 [facility] Comment on above: Performed By: #### L 501.6710, L101.9900 #### [facility] [address] [place], [address] MCH (RBC) [Entitic mass] 31.6 pg Normal 27.0-32.0 [facility] Comment on above: Performed By: #### L 501.6710, L101.9900 #### [facility] [address] [place], [address] MCHC (RBC) [Mass/Vol] 32.7 g/dL Normal 32-36 [facility] Comment on above: Performed By: #### L 501.6710, L101.9900 #### [facility] [address] [place], [address] MCV (RBC) [Entitic vol] 96.6 fL Normal 81-99 [facility] Comment on above: Performed By: #### L 501.6710, L101.9900 #### [facility] [address] [place], [address] Monocytes/100 WBC (Bld) 5.7 % Normal 0-10 [facility] Comment on above: Performed By: #### L 501.6710, L101.9900 #### [facility] [address] [place], [address] Neutrophils/100 WBC (Bld) 86.8 % High 47-70 [facility] Comment on above: Performed By: #### L 501.6710, L101.9900 #### [facility] [address] [place], [address] Nucleated RBC (Bld) [#/Vol] 0 10*3/uL Normal 0-5 [facility] Comment on above: Performed By: #### L 501.6710, L101.9900 #### [facility] [address] [place], [address] Platelet mean volume (Bld) [Entitic vol] 9.1 fL Normal 6.2-12.0 [facility] Comment on above: Performed By: #### L 501.6710, L101.9900 #### [facility] [address] [place], [address] Platelets (Bld) [#/Vol] 198 10*3/uL Normal 150-450 [facility] Comment on above: Performed By: #### L 501.6710, L101.9900 #### [facility] [address] [place], [address] RBC (Bld) [#/Vol] 3.23 10*6/uL Low 4.2-5.4 [facility] Comment on above: Performed By: #### L 501.6710, L101.9900 #### [facility] [address] [place], [address] RDW SD 54.0 fl High 35.1-43.9 [facility] Comment on above: Performed By: #### L 501.6710, L101.9900 #### [facility] [address] [place], [address] WBC (Bld) [#/Vol] 7.9 10*3/uL Normal 4.4-11.0 [place] Comment on above: Performed By: #### L 501.6710, L101.9900 #### [facility] [address] [place], [address] CRPon 12-10-2023 C-REACTIVE PROT 150.00 mg/L High 0.0-3.0 [facility] Comment on above: Result Comment: C-Re active Protein (CRP) provides useful information for the diagnosis, therapy and monitoring of inflammatory processes and associated diseases. For the evaluation of Relative Risk for Cardiovascular Disease, a High Sensitivity CRP (HSCRP) should be ordered. Performed By: #### L 501.6710, L101.9900 #### [facility] [address] [place], [address] Erythrocyte Sed Rateon 12-09 SED RATE 12 mm/hr Normal 0-30 [facility] Comment on above: Performed By: #### L 501.6710, L101.9900 #### [facility] [address] [place], [address] Basic Metabolic Profile (BMP )on 12-09-2023 BUN/CRE 16.6 RATIO Normal 10-20 [facility] Comment on above: Performed By: #### L 501.6710, L101.9900 #### [facility] [address] [place], [address] CA,Total 8.7 mg/dL Normal 8.5-10.1 [facility] Comment on above: Performed By: #### L 501.6710, L101.9900 #### [facility] [address] [place], [address] Chloride [Moles/Vol] 99 mmol/L Normal 98-107 [facility] Comment on above: Performed By: #### L 501.6710, L101.9900 #### [facility] [address] [place], [address] CO2 [Moles/Vol] 23.0 mmol/L Normal 21.0-32.0 [facility] Comment on above: Performed By: #### L 501.6710, L101.9900 #### [facility] [address] [place], [address] Creatinine [Mass/Vol] 0.66 mg/dL Normal 0.55-1.02 [facility] Comment on above: Result Comment: The validity of the calculated GFR GFRAA in patients over 70 years has not been determined. Clinical correlation is essential. Performed By: #### L 501.6710, L101.9900 #### [facility] [address] [place], [address] ECRCL 31.12 ml/min Normal [facility] Comment on above: Performed By: #### L 501.6710, L101.9900 #### [facility] [address] [place], [address] EST GFR - AA 109 mL/min Normal >60 [facility] Comment on above: Result Comment: Afri can Czech GFR Calc Performed By: #### L 501.6710, L101.9900 #### [facility] [address] [place], [address] GAP 12 Normal 5-15 [facility] Comment on above: Performed By: #### L 501.6710, L101.9900 #### [facility] [address] [place], [address] GFR/1.73 sq M.predicted among non-blacks MDRD (S/P/Bld) [Vol rate/Area] 90 mL/min/{1.73_m2} Normal >60 [facility] Comment on above: Result Comment: Non- GFR Calc Performed By: #### L 501.6710, L101.9900 #### [facility] [address] [place], [address] Glucose [Mass/Vol] 79 mg/dL Normal 74-106 [place] Comment on above: Performed By: #### L 501.6710, L101.9900 #### [facility] [address] [place], [address] Potassium [Moles/Vol] 3.4 mmol/L Low 3.5-5.1 [facility] Comment on above: Performed By: #### L 501.6710, L101.9900 #### [facility] [address] [place], [address] Sodium [Moles/Vol] 134 mmol/L Low 136-145 [place] Comment on above: Performed By: #### L 501.6710, L101.9900 #### [facility] [address] [place], [address] Urea nitrogen [Mass/Vol] 11 mg/dL Normal 7-18 [facility] Comment on above: Performed By: #### L 501.6710, L101.9900 #### [facility] [address] [place], [address] Bedside Glucoseon 12-09-2023 FINGERSTICK GLU 277 mg/dL High 74-106 [facility] Comment on above: Result Comment: LESLIE GEMENT OF PATIENT CARE PER NURSING PROTOCOL Performed By: #### L 501.6710, L101.9900 #### [facility] [address] [place], [address] FINGERSTICK GLU 255 mg/dL High 74-106 [facility] Comment on above: Result Comment: LESLIE GEMENT OF PATIENT CARE PER NURSING PROTOCOL Performed By: #### L 501.10, L101.9900 #### [facility] [address] [place], [address] FINGERSTICK GLU 227 mg/dL High 74-106 [facility] Comment on above: Result Comment: LESLIE GEMENT OF PATIENT CARE PER NURSING PROTOCOL Performed By: #### L 501.6710, L101.9900 #### [facility] [address] [place], [address] FINGERSTICK GLU 75 mg/dL Normal 74-106 [facility] Comment on above: Result Comment: LESLIE GEMENT OF PATIENT CARE PER NURSING PROTOCOL Performed By: #### L 501.6710, L101.9900 #### [place] [facility] [address] [place], [address] CBC W/Diff, Automatedon 06-2 Absolute Neut 7.9 X10 3/uL High 2.0-7.7 [facility] Comment on above: Performed By: #### L 501.6710, L101.9900 #### [facility] [address] [place], [address] Erythrocyte distribution width (RBC) [Ratio] 14.9 % High 11.6-14.6 [facility] Comment on above: Performed By: #### L 501.6710, L101.9900 #### [facility] [address] [place], [address] Hematocrit (Bld) [Volume fraction] 34.8 % Low 37-47 [facility] Comment on above: Performed By: #### L 501.6710, L101.9900 #### [facility] [address] [place], [address] Hemoglobin (Bld) [Mass/Vol] 11.0 g/dL Low 12.0-15.0 [facility] Comment on above: Performed By: #### L 501.6710, L101.9900 #### [facility] [address] [place], [address] MCH (RBC) [Entitic mass] 30.6 pg Normal 27.0-32.0 [facility] Comment on above: Performed By: #### L 501.6710, L101.9900 #### [facility] [address] [place], [address] MCHC (RBC) [Mass/Vol] 31.6 g/dL Low 32-36 [facility] Comment on above: Performed By: #### L 501.6710, L101.9900 #### [facility] [address] [place], [address] MCV (RBC) [Entitic vol] 96.7 fL Normal 81-99 [facility] Comment on above: Performed By: #### L 501.6710, L101.9900 #### [facility] [address] [place], [address] Neutrophils/100 WBC (Bld) 88.2 % High 47-70 [facility] Comment on above: Performed By: #### L 501.6710, L101.9900 #### [facility] [address] [place], [address] Platelets (Bld) [#/Vol] 244 10*3/uL Normal 150-450 [facility] Comment on above: Performed By: #### L 501.6710, L101.9900 #### [facility] [address] [place], [address] RBC (Bld) [#/Vol] 3.60 10*6/uL Low 4.2-5.4 [facility] Comment on above: Performed By: #### L 501.6710, L101.9900 #### [facility] [address] [place], [address] RDW SD 53.9 fl High 35.1-43.9 [facility] Comment on above: Performed By: #### L 501.6710, L101.9900 #### [facility] [address] [place], [address] WBC (Bld) [#/Vol] 8.9 10*3/uL Normal 4.4-11.0 [place] Comment on above: Performed By: #### L 501.6710, L101.9900 #### [facility] [address] [place], [address] CRPon 12-09-2023 C-REACTIVE PROT 154.00 mg/L High 0.0-3.0 [facility] Comment on above: Result Comment: C-Re active Protein (CRP) provides useful information for the diagnosis, therapy and monitoring of inflammatory processes and associated diseases. For the evaluation of Relative Risk for Cardiovascular Disease, a High Sensitivity CRP (HSCRP) should be ordered. Performed By: #### L 501.6710, L101.9900 #### [facility] [address] [place], [address] Erythrocyte Sed Rateon 12-08 SED RATE 24 mm/hr Normal 0-30 [facility] Comment on above: Performed By: #### L 501.6710, L101.9900 #### [facility] [address] [place], [address] Rheumatoid Factoron 12-09-19 24 RHEUMATOID FAC 280.0 IU/mL High <15 [facility] Comment on above: Performed By: #### L 501.6710, L101.9900 #### [facility] [address] [place], [address] Bedside Glucoseon 12-08-2023 FINGERSTICK GLU 96 mg/dL Normal 74-106 [facility] Comment on above: Result Comment: LESLIE GEMENT OF PATIENT CARE PER NURSING PROTOCOL Performed By: #### L 501.080 #### [facility] [address] [place], [address] FINGERSTICK GLU 117 mg/dL High 74-106 [facility] Comment on above: Result Comment: LESLIE GEMENT OF PATIENT CARE PER NURSING PROTOCOL Performed By: #### L 501.080 #### [facility] [address] [place], [address] FINGERSTICK GLU 125 mg/dL High 74-106 [facility] Comment on above: Result Comment: LESLIE GEMENT OF PATIENT CARE PER NURSING PROTOCOL Performed By: #### L 501.6710, L101.9900 #### [facility] [address] [place], [address] FINGERSTICK GLU 194 mg/dL High 74-106 [facility] Comment on above: Result Comment: LESLIE GEMENT OF PATIENT CARE PER NURSING PROTOCOL Performed By: #### L 501.080 #### [facility] [address] [place], [address] FINGERSTICK GLU 239 mg/dL High 74-106 [facility] Comment on above: Result Comment: LESLIE GEMENT OF PATIENT CARE PER NURSING PROTOCOL Performed By: #### L 501.080 #### [facility] [address] [place], [address] CBC W/Diff, Automatedon 11-11 Absolute Lymph 0.39 X10 3/uL Low 0.83-4.51 [facility] Comment on above: Performed By: #### L 501.080 #### [facility] [address] [place], [address] Absolute Neut 7.1 X10 3/uL Normal 2.0-7.7 [facility] Comment on above: Performed By: #### L 501.080 #### [facility] [address] [place], [address] Basophils/100 WBC (Bld) 0.4 % Normal 0-1 [facility] Comment on above: Performed By: #### L 501.080 #### [facility] [address] [place], [address] Eosinophils/100 WBC (Bld) 0.5 % Normal 0-5 [facility] Comment on above: Performed By: #### L 501.080 #### [facility] [address] [place], [address] Erythrocyte distribution width (RBC) [Ratio] 14.9 % High 11.6-14.6 [facility] Comment on above: Performed By: #### L 501.080 #### [facility] [address] [place], [address] Hematocrit (Bld) [Volume fraction] 31.9 % Low 37-47 [facility] Comment on above: Performed By: #### L 501.080 #### [facility] [address] [place], [address] Hemoglobin (Bld) [Mass/Vol] 10.2 g/dL Low 12.0-15.0 [facility] Comment on above: Performed By: #### L 501.080 #### [facility] [address] [place], [address] IG% 0.300 Normal 0.0-0.9 [facility] Comment on above: Result Comment: IG% - Immature Granulocytes (promyelocytes, myelocytes and metamyelocytes) > 1% indicates that a LEFT SHIFT is Present. Performed By: #### L 501.080 #### [facility] [address] [facility] [place], [address] Lymphocytes/100 WBC (Bld) 4.9 % Low 19-41 [facility] Comment on above: Performed By: #### L 501.080 #### [facility] [address] [facility] [place], [address] MCH (RBC) [Entitic mass] 31.1 pg Normal 27.0-32.0 [facility] Comment on above: Performed By: #### L 501.080 #### [facility] [address] [place], [address] MCHC (RBC) [Mass/Vol] 32.0 g/dL Normal 32-36 [facility] Comment on above: Performed By: #### L 501.080 #### [facility] [address] [place], [address] MCV (RBC) [Entitic vol] 97.3 fL Normal 81-99 [facility] Comment on above: Performed By: #### L 501.080 #### [facility] [address] [place], [address] Monocytes/100 WBC (Bld) 5.6 % Normal 0-10 [facility] Comment on above: Performed By: #### L 501.080 #### [facility] [address] [place], [address] Neutrophils/100 WBC (Bld) 88.3 % High 47-70 [facility] Comment on above: Performed By: #### L 501.080 #### [facility] [address] [place], [address] Nucleated RBC (Bld) [#/Vol] 0 10*3/uL Normal 0-5 [facility] Comment on above: Performed By: #### L 501.080 #### [facility] [address] [place], [address] Platelet mean volume (Bld) [Entitic vol] 8.4 fL Normal 6.2-12.0 [facility] Comment on above: Performed By: #### L 501.080 #### [facility] [address] [place], [address] Platelets (Bld) [#/Vol] 262 10*3/uL Normal 150-450 [facility] Comment on above: Performed By: #### L 501.080 #### [facility] [address] [place], [address] RBC (Bld) [#/Vol] 3.28 10*6/uL Low 4.2-5.4 [facility] Comment on above: Performed By: #### L 501.080 #### [facility] [address] [place], [address] RDW SD 53.8 fl High 35.1-43.9 [facility] Comment on above: Performed By: #### L 501.080 #### [facility] [address] [place], [address] WBC (Bld) [#/Vol] 8.0 10*3/uL Normal 4.4-11.0 [facility] Comment on above: Performed By: #### L 501.080 #### [facility] [address] [place], [address] CRPon 12-08-2023 C-REACTIVE PROT 97.20 mg/L High 0.0-3.0 [facility] Comment on above: Result Comment: C-Re active Protein (CRP) provides useful information for the diagnosis, therapy and monitoring of inflammatory processes and associated diseases. For the evaluation of Relative Risk for Cardiovascular Disease, a High Sensitivity CRP (HSCRP) should be ordered. Performed By: #### L 501.6710, L101.9900 #### [facility] [address] [place], [address] CT Chest, Abd, Pel w/Contras ton 12-08-2023 CT Chest, Abd, Pel w/Contrast [facility] [address] [place], [place] [address] CT Chest, Abd, Pel w/Contrast MR#: [id number] Acct: [id number] Name: MARTHA ENGEL Rep #: [id number] : 1940 F 83 From: [place] pat[place] MD PCP: Dr. Victor M Cochran MD Status: ADM IN Study: CT Chest, Abd, Pel w/Contrast Date of Exam: Exam# [id number] Ordering Dr: Chrissie Javier MD [id number] INDICATION: fever of unknown origin EXAMINATION: CT Chest Abdomen And Pelvis W/ Contrast Injection TECHNIQUE: Images were obtained of the chest, abdomen and pelvis following IV contrast. A radiation dose optimization technique was used for this scan. IV Contrast dosage and agent: Oral and amp; IV Gastrografin and amp; 50mL [id number] COMPARISON: None. FINDINGS: Lungs: There is intralobular septal thickening. Scattered ground glass opacities. Mediastinum: The cardiomediastinal silhouette is not enlarged. No mediastinal, hilar or axillary adenopathy. Mild aortic arch and coronary artery calcifications. No obvious filling defect seen within the visualized pulmonary arteries. Pleura: Trace bilateral pleural effusions. Liver: Unremarkable Gallbladder: Unremarkable Spleen: Unremarkable Pancreas: Unremarkable Adrenal Glands: Unremarkable Kidneys: Unremarkable Vasculature: Severe aortoiliac atherosclerotic disease. GI Tract: Hiatal hernia. Circumferential gastric wall thickening. Large amount retained stool in the colon. Prominent fluid-filled loops of small bowel. Lymphadenopathy: None Peritoneum: No ascites. Bladder: Unremarkable Reproductive organs: Unremarkable Bones/Soft tissues: There are diffuse degenerative changes of the spine. Age indeterminate severe compression deformities of T8-L3. There is a left hip arthroplasty. CT/CT Chest, Abd, Pel w/Contrast IMPRESSION: Circumferential gastric wall thickening could represent gastritis in the correct clinical setting. Cannot rule out malignancy. Age indeterminate severe compression deformities of T8-L3. Interstitial lung edema with trace bilateral pleural effusions. Electronically Signed: Clinton Gentile MD at 20:39 EDT , CC: Dr. Chrissie Javier MD; Dr. Victor M Cochran MD Mechanical Engineering Specialist: Signed Normal [facility] Comprehensive Metabolic Prof [facility] 12-08-2023 Albumin [Mass/Vol] 2.7 g/dL Low 3.2-5.0 [place] Comment on above: Performed By: #### L 501.080 #### [facility] [address] [place], [place], [id number] Albumin/Globulin [Mass ratio] 0.7 {ratio} Low 0.9-2.4 [facility] Comment on above: Performed By: #### L 501.080 #### [facility] [address] [place], [address] ALK P 79 U/L Normal 45-117 [facility] Comment on above: Performed By: #### L 501.080 #### [facility] [address] [place], [address] ALT [Catalytic activity/Vol] 13 U/L Normal 13-56 [facility] Comment on above: Performed By: #### L 501.080 #### [facility] [address] [place], [address] AST [Catalytic activity/Vol] 17 U/L Normal 15-37 [facility] Comment on above: Performed By: #### L 501.080 #### [facility] [address] [place], [address] Bilirubin [Mass/Vol] 0.30 mg/dL Normal 0.20-1.00 [facility] Comment on above: Result Comment: For patients on eltrombopag therapy, use of Dimension [place] TBIL is not recommended. Performed By: #### L 501.080 #### [facility] [address] [place], [address] BUN/CRE 11.3 RATIO Normal 10-20 [facility] Comment on above: Performed By: #### L 501.080 #### [facility] [address] [place], [address] CA,Total 9.0 mg/dL Normal 8.5-10.1 [facility] Comment on above: Performed By: #### L 501.080 #### [facility] [address] [place], [address] Chloride [Moles/Vol] 103 mmol/L Normal 98-107 [facility] Comment on above: Performed By: #### L 501.080 #### [facility] [address] [place], [address] CO2 [Moles/Vol] 25.0 mmol/L Normal 21.0-32.0 [facility] Comment on above: Performed By: #### L 501.080 #### [facility] [address] [place], [address] Creatinine [Mass/Vol] 0.62 mg/dL Normal 0.55-1.02 [facility] Comment on above: Result Comment: The validity of the calculated GFR GFRAA in patients over 70 years has not been determined. Clinical correlation is essential. Performed By: #### L 501.080 #### [facility] [address] [place], [address] ECRCL 31.21 ml/min Normal [facility] Comment on above: Performed By: #### L 501.080 #### [facility] [address] [place], [address] EST GFR - AA 118 mL/min Normal >60 [facility] Comment on above: Result Comment: Afri can Czech GFR Calc Performed By: #### L 501.080 #### [facility] [address] [place], [address] GAP 9 Normal 5-15 [facility] Comment on above: Performed By: #### L 501.080 #### [facility] [address] [place], [address] GFR/1.73 sq M.predicted among non-blacks MDRD (S/P/Bld) [Vol rate/Area] 97 mL/min/{1.73_m2} Normal >60 [facility] Comment on above: Result Comment: Non- GFR Calc Performed By: #### L 501.080 #### [facility] [address] [place], [address] Globulin (S) [Mass/Vol] 3.8 g/dL Normal 2.2-4.2 [facility] Comment on above: Performed By: #### L 501.080 #### [facility] [address] [place], [address] Glucose [Mass/Vol] 211 mg/dL High 74-106 [place] Comment on above: Result Comment: Gluc ose result greater than or equal to 200 mg/dL suggests DIABETES MELLITUS per A.D.A. criteria. Performed By: #### L 501.080 #### [facility] [address] [place], [address] Potassium [Moles/Vol] 3.6 mmol/L Normal 3.5-5.1 [facility] Comment on above: Performed By: #### L 501.080 #### [facility] [address] [place], [address] Sodium [Moles/Vol] 137 mmol/L Normal 136-145 [place] Comment on above: Performed By: #### L 501.080 #### [facility] [address] [place], [address] T PROT 6.5 g/dL Normal 6.4-8.2 [facility] Comment on above: Performed By: #### L 501.080 #### [facility] [address] [place], [address] Urea nitrogen [Mass/Vol] 7 mg/dL Normal 7-18 [facility] Comment on above: Performed By: #### L 501.080 #### [facility] [address] [place], [address] Erythrocyte Sed Rateon 12-07 SED RATE 28 mm/hr Normal 0-30 [facility] Comment on above: Performed By: #### L 501.6710, L101.9900 #### [facility] [address] [place], [address] Folates, (Folic Acid)on 11-11 FOLATES 26.80 ng/mL Normal 3.1-55.4 [facility] Comment on above: Performed By: #### L 501.6710, L101.9900 #### [facility] [address] [place], [address] Hemoglobin A1con 12-08-2023 HbA1c (Bld) [Mass fraction] 8.4 % High 3.8-5.6 [facility] Comment on above: Result Comment: Norm al < 5.7 % Prediabetic 5.7 - 6.4 % Diabetic >or= 6.5 % Please note range changes. Performed By: #### L 501.080 #### [facility] [address] [place], [address] Phosphoruson 12-08-2023 Phosphate [Mass/Vol] 2.3 mg/dL Low 2.5-4.9 [facility] Comment on above: Performed By: #### L 501.080 #### [facility] [address] [place], [address] RESPIRATORY PANEL MOLECULARo n 12-08-2023 RP PANEL ADENOVIRUS Not Detected INFLUENZA A Not Detected INFLUENZA A (SUBTYPE H1) Not Detected INFLUENZA A (SUBTYPE H3) Not Detected INFLUENZA B Not Detected HUMAN METAPHNEUMO Not Detected PARAINFLUENZA 1 Not Detected PARAINFLUENZA 2 Not Detected PARAINFLUENZA 3 Not Detected PARAINFLUENZA 4 Not Detected RHINOVIRUS Not Detected RSV A Not Detected RSV B Not Detected Normal [facility] Comment on above: Performed By: #### L 300.4310, L500.4050, L300.3900, L100.0100, L503.6005 #### [facility] [address] [place], [address] T4 Free Directon 12-08-2023 T4 FREE DIRECT 1.32 ng/dL Normal 0.76-1.46 [facility] Comment on above: Performed By: #### L 501.6710, L101.9900 #### [facility] [address] [place], [address] Thyroid Stim Hormone (TSH)on 12-08-2023 TSH 1.70 uIU/mL Normal 0.358-3.74 [facility] Comment on above: Performed By: #### L 501.6710, L101.9900 #### [facility] [address] [place], [address] Urine Cultureon 12-08-2023 URC Culture exhibits no growth. Normal [facility] Comment on above: Performed By: #### L 501.080 #### [facility] [address] [place], [address] Vitamin B12on 12-08-2023 Cobalamin (Vitamin B12) [Mass/Vol] 487 pg/mL Normal 211-911 [facility] Comment on above: Performed By: #### L 501.6710, L101.9900 #### [facility] [address] [place], [address] Vitamin D,25 Hydroxyon 12-07 Vitamin D 25-OH 48.9 ng/mL Normal [facility] Comment on above: Result Comment: Noni min D 25(OH) Status Range Deficiency <20 ng/mL (50nmol/L) Insufficiency 20 - 30 ng/mL (50 - 75 nmol/L) Sufficiency 30 - 100 ng/mL (75 - 250 nmol/L) Toxicity >100 ng/mL (>250 nmol/L) Performed By: #### L 501.6710, L101.9900 #### [facility] [address] [place], [address] CBC W/Diff, Automatedon 11-11 Absolute Lymph 0.52 X10 3/uL Low 0.83-4.51 [facility] Comment on above: Performed By: #### L 300.4310, L500.4050, L300.3900, L100.0100, L503.6005 #### [facility] [address] [place], [address] Absolute Neut 7.5 X10 3/uL Normal 2.0-7.7 [facility] Comment on above: Performed By: #### L 300.4310, L500.4050, L300.3900, L100.0100, L503.6005 #### [facility] [address] [place], [address] Basophils/100 WBC (Bld) 0.5 % Normal 0-1 [facility] Comment on above: Performed By: #### L 300.4310, L500.4050, L300.3900, L100.0100, L503.6005 #### [facility] [address] [place], [address] Eosinophils/100 WBC (Bld) 0.7 % Normal 0-5 [facility] Comment on above: Performed By: #### L 300.4310, L500.4050, L300.3900, L100.0100, L503.6005 #### [facility] [address] [place], [address] Erythrocyte distribution width (RBC) [Ratio] 14.8 % High 11.6-14.6 [facility] Comment on above: Performed By: #### L 300.4310, L500.4050, L300.3900, L100.0100, L503.6005 #### [facility] [address] [place], [address] Hematocrit (Bld) [Volume fraction] 34.6 % Low 37-47 [facility] Comment on above: Performed By: #### L 300.4310, L500.4050, L300.3900, L100.0100, L503.6005 #### [facility] [address] [place], [address] Hemoglobin (Bld) [Mass/Vol] 11.2 g/dL Low 12.0-15.0 [facility] Comment on above: Performed By: #### L 300.4310, L500.4050, L300.3900, L100.0100, L503.6005 #### [facility] [address] [place], [address] IG% 0.600 Normal 0.0-0.9 [facility] Comment on above: Result Comment: IG% - Immature Granulocytes (promyelocytes, myelocytes and metamyelocytes) > 1% indicates that a LEFT SHIFT is Present. Performed By: #### L 300.4310, L500.4050, L300.3900, L100.0100, L503.6005 #### [facility] [address] [place], [address] Lymphocytes/100 WBC (Bld) 6.1 % Low 19-41 [facility] Comment on above: Performed By: #### L 300.4310, L500.4050, L300.3900, L100.0100, L503.6005 #### [facility] [address] [place], [address] MCH (RBC) [Entitic mass] 31.3 pg Normal 27.0-32.0 [facility] Comment on above: Performed By: #### L 300.4310, L500.4050, L300.3900, L100.0100, L503.6005 #### [facility] [address] [place], [address] MCHC (RBC) [Mass/Vol] 32.4 g/dL Normal 32-36 [facility] Comment on above: Performed By: #### L 300.4310, L500.4050, L300.3900, L100.0100, L503.6005 #### [facility] [address] [place], [address] MCV (RBC) [Entitic vol] 96.6 fL Normal 81-99 [facility] Comment on above: Performed By: #### L 300.4310, L500.4050, L300.3900, L100.0100, L503.6005 #### [facility] [address] [place], [address] Monocytes/100 WBC (Bld) 5.2 % Normal 0-10 [facility] Comment on above: Performed By: #### L 300.4310, L500.4050, L300.3900, L100.0100, L503.6005 #### [facility] [address] [place], [address] Neutrophils/100 WBC (Bld) 86.9 % High 47-70 [facility] Comment on above: Performed By: #### L 300.4310, L500.4050, L300.3900, L100.0100, L503.6005 #### [facility] [address] [place], [address] Nucleated RBC (Bld) [#/Vol] 0 10*3/uL Normal 0-5 [facility] Comment on above: Performed By: #### L 300.4310, L500.4050, L300.3900, L100.0100, L503.6005 #### [facility] [address] [place], [address] Platelet mean volume (Bld) [Entitic vol] 8.6 fL Normal 6.2-12.0 [facility] Comment on above: Performed By: #### L 300.4310, L500.4050, L300.3900, L100.0100, L503.6005 #### [facility] [address] [place], [address] Platelets (Bld) [#/Vol] 293 10*3/uL Normal 150-450 [facility] Comment on above: Performed By: #### L 300.4310, L500.4050, L300.3900, L100.0100, L503.6005 #### [facility] [address] [place], [address] RBC (Bld) [#/Vol] 3.58 10*6/uL Low 4.2-5.4 [facility] Comment on above: Performed By: #### L 300.4310, L500.4050, L300.3900, L100.0100, L503.6005 #### [facility] [address] [place], [address] RDW SD 52.4 fl High 35.1-43.9 [facility] Comment on above: Performed By: #### L 300.4310, L500.4050, L300.3900, L100.0100, L503.6005 #### [facility] [address] [place], [address] WBC (Bld) [#/Vol] 8.6 10*3/uL Normal 4.4-11.0 [place] Comment on above: Performed By: #### L 300.4310, L500.4050, L300.3900, L100.0100, L503.6005 #### [facility] [address] [place], [address] Chest 1 View (Portable)on Chest 1 View (Portable) [facility] Imaging Services [address] [place] [address] Chest 1 View (Portable) MR#: [id number] Acct: [id number] Name: MARTHA ENGEL Rep #: [id number] : 1940 F 83 From: Santy Wiley MD PCP: Dr. 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 cough TECHNIQUE: AP portable COMPARISON: June 03, 2023 FINDINGS: Mild chronic interstitial thickening in left lower lobe.. There is mild pleural thickening in the pulmonary apices. There is no pleural effusion or pneumothorax. Normal size heart. Normal mediastinum and zbigniew. Normal visualized pulmonary arteries. Mildly calcified aortic arch and descending thoracic aorta. Dorsal spine demonstrates degenerative changes. Normal visualized ribs, clavicles, and shoulders. There is no demonstrated abnormality of the visualized soft tissue structures of the upper abdomen. There is improved aeration in left lower lobe since prior study RAD/Chest 1 View (Portable) IMPRESSION: Probable residual chronic interstitial thickening in the left lower lobe with interval improvement since previous exam. Otherwise no acute cardiopulmonary pathology Electronically Signed: Santy Wiley MD at 20:07 EDT Reading Location ID and State: [facility] / [place] Tel , Service support , CC: JUAN Hoffmann; Dr. Victor M Cochran MD Mechanical Engineering Specialist: Signed Normal [facility] Comprehensive Metabolic Prof [place] 12-07-2023 Albumin [Mass/Vol] 3.2 g/dL Normal 3.2-5.0 [place] Comment on above: Performed By: #### L 501.080 #### [facility] [address] [place], [place], [address] Albumin/Globulin [Mass ratio] 0.7 {ratio} Low 0.9-2.4 [facility] Comment on above: Performed By: #### L 501.080 #### [facility] [address] [place], [place], [address] ALK P 99 U/L Normal 45-117 [facility] Comment on above: Performed By: #### L 501.080 #### [facility] [address] [place], [address] ALT [Catalytic activity/Vol] 14 U/L Normal 13-56 [facility] Comment on above: Performed By: #### L 501.080 #### [facility] [address] [place], [address] AST [Catalytic activity/Vol] 13 U/L Low 15-37 [facility] Comment on above: Performed By: #### L 501.080 #### [facility] [address] [place], [address] Bilirubin [Mass/Vol] 0.40 mg/dL Normal 0.20-1.00 [facility] Comment on above: Result Comment: For patients on eltrombopag therapy, use of Dimension [place] TBIL is not recommended. Performed By: #### L 501.080 #### [facility] [address] [place], [address] BUN/CRE 14.6 RATIO Normal 10-20 [facility] Comment on above: Performed By: #### L 501.080 #### [facility] [address] [place], [address] CA,Total 9.4 mg/dL Normal 8.5-10.1 [facility] Comment on above: Performed By: #### L 501.080 #### [facility] [address] [place], [address] Chloride [Moles/Vol] 97 mmol/L Low 98-107 [facility] Comment on above: Performed By: #### L 501.080 #### [facility] [address] [place], [address] CO2 [Moles/Vol] 28.0 mmol/L Normal 21.0-32.0 [facility] Comment on above: Performed By: #### L 501.080 #### [facility] [address] [place], [address] Creatinine [Mass/Vol] 0.82 mg/dL Normal 0.55-1.02 [facility] Comment on above: Result Comment: The validity of the calculated GFR GFRAA in patients over 70 years has not been determined. Clinical correlation is essential. Performed By: #### L 501.080 #### [facility] [address] [place], [address] ECRCL 31.49 ml/min Normal [facility] Comment on above: Performed By: #### L 501.080 #### [facility] [address] [place], [address] EST GFR - AA 85 mL/min Normal >60 [facility] Comment on above: Result Comment: Afri can Czech GFR Calc Performed By: #### L 501.080 #### [facility] [address] [place], [address] GAP 5 Normal 5-15 [facility] Comment on above: Performed By: #### L 501.080 #### [facility] [address] [place], [address] GFR/1.73 sq M.predicted among non-blacks MDRD (S/P/Bld) [Vol rate/Area] 70 mL/min/{1.73_m2} Normal >60 [facility] Comment on above: Result Comment: Non- GFR Calc Performed By: #### L 501.080 #### [facility] [address] [place], [address] Globulin (S) [Mass/Vol] 4.4 g/dL High 2.2-4.2 [facility] Comment on above: Performed By: #### L 501.080 #### [facility] [address] [place], [address] Glucose [Mass/Vol] 282 mg/dL High 74-106 [place] Comment on above: Result Comment: Gluc ose result greater than or equal to 200 mg/dL suggests DIABETES MELLITUS per A.D.A. criteria. Performed By: #### L 501.080 #### [facility] [address] [place], [address] Potassium [Moles/Vol] 3.9 mmol/L Normal 3.5-5.1 [facility] Comment on above: Performed By: #### L 501.080 #### [facility] [address] [place], [address] Sodium [Moles/Vol] 130 mmol/L Low 136-145 [place] Comment on above: Performed By: #### L 501.080 #### [facility] [address] [place], [address] T PROT 7.6 g/dL Normal 6.4-8.2 [facility] Comment on above: Performed By: #### L 501.080 #### [facility] [address] [place], [address] Urea nitrogen [Mass/Vol] 12 mg/dL Normal 7-18 [facility] Comment on above: Performed By: #### L 501.080 #### [facility] [address] [place], [address] Emergency Department Summary on 12-07-2023 Emergency Department Summary [facility] Medical Records Department [address] [place] [address] Emergency Department Summary 12/07/23 MR#: [id number] Acct: [id number] Name: MARTHA ENGEL Rep #: [id number] : 1940 83 From: Slick MARTINEZ PCP: Dr. Victor M Cochran MD Status:ADM ODALIS Location: [address] History of Present Illness Chief Complaint: Weakness Narrative Narrative: Patient is an 83-year-old female with history of arthritis, chronic back pain who lives alone who presents to the emergency department for worsening weakness. The daughter does come over and help the patient with certain things. Today, the patient was not acting herself, the patient could barely get up off the chair. They did notice the patient felt hot. The patient was more confused today. The patient states he just generally does not feel well. [facility] Medical History COVID residential resident Loss of hearing Wears glasses Wears dentures Post-menopausal Cancer Forgetfulness Anxiety Open wound Pain Walker as ambulation aid Bladder disease Injury of back Syncope FTT (failure to thrive) in adult History of diverticulitis Chronic constipation Non-smoker History of pain when walking History of echocardiogram Hypertension Iron deficiency anemia Osteoarthritis Rheumatoid arthritis High cholesterol Diabetes Home Medications ???Medication ???Instructions ???Recorded ???Last Taken ???Type cholecalciferol (vitamin D3) 25 2,000 unit PO DAILY SUPPLEMENT 07/25/14 05/31/23 History mcg (1,000 unit) tablet (Vitamin D3) baclofen 10 mg tablet 10 mg PO QHS MUSCLE SPASMS 05/25/23 05/30/23 History acetaminophen 500 mg tablet 1,000 mg PO BID 12/07/23 Unknown History levothyroxine 25 mcg tablet 25 mcg PO DAILY 12/07/23 Unknown History Allergy/AdvReac Type Severity Reaction Status Date / Time alendronate sodium (From Allergy Anaphylaxis Verified 12/07/23 18:26 Fosamax) Penicillins Allergy Swelling Verified 12/07/23 18:26 Family History Mother Alzheimer disease Father Myocardial infarction Hypertension Heart disease CAD (coronary artery disease) Surgical History Hx of colonoscopy History of surgery on arm S/P ORIF (open reduction internal fixation) fracture Social History household members: none Smoking Status: Never smoker alcohol intake: never substance use type: does not use ROS ROS ED ROS Narrative Constitutional: Negative for weight loss. Positive for weakness, fever and chills Eyes: Negative for vision loss, vision change, double vision ENT: Negative for any sore throat, ear pain, congestion Cardiovascular: Negative for any chest pain, tightness, palpitations Respiratory: Negative for any sputum production, hemoptysis, dyspnea, dyspnea on exertion, orthopnea. Positive for cough Gastrointestinal: Negative for any abdominal pain, nausea, vomiting, diarrhea, constipation, blood in stool, blood in vomit : Negative for any urinary frequency, dysuria, retention, blood in urine Muscle skeletal: Negative for any neck pain, back pain Neurological: Negative for any headache, syncope, dizziness Skin: Negative for any rashes, itching, abrasions, lacerations Psychiatric: Negative for any depression, anxiety, stress, suicidal ideation, homicidal ideation Hematologic: Negative for any excessive bruising, easy bleeding EXAM Physical Exam Narrative Exam Narrative: Vital signs reviewed. Patient did have a fever on my initial exam of 101.8., Patient slightly tachycardic. Patient is alert and orient x 4 however does appear to be slightly worn out and does not feel well. HEET: Head normocephalic atraumatic, TMs clear bilaterally. Posterior pharynx is clear, dry mucous membranes. Nares clear bilaterally. Neck: Supple with no lymphadenopathy or tenderness. No signs of meningismus. Cardiac: Regular rate and rhythm no murmurs gallops or rubs, equal peripheral pulses bilaterally. Respiratory: Lungs clear to auscultation bilaterally. Lung sounds diminished in the bases. No chest tenderness. Abdomen: Soft, nontender, nondistended. No abdominal bruit or pulsatile masses. No hepatosplenomegaly Extremities: No peripheral edema, no signs of gross trauma or deformity. Active full range of motion of all extremities. Neuro: Cranial nerves II through XII intact, no focal neurological deficits. Skin: Clean dry and intact with no rash, purpura, petechiae, vesicles or pustules. Backs/flank: No CVA tenderness, no midline spinal tenderness, no deformity. Psych: Normal mood and affect. No SI, HI or acute psychosis. Const Vital Signs: (more content not included)... Normal [facility] H AND P Exam - [place] 12-07-2023 H&P Exam - Hospitalist [facility] Medical Records Department [address] [place] [address] H P Exam - Hospitalist 12/07/232025 MR#: [id number] Acct: [id number] Name: MARTHA ENGEL Rep #: [id number] : 1940 83 From: Gogo Browne MD PCP: Dr. Victor M Cochran MD Status:ADM ODALIS Location: [place] [address] HPI - General General Date of Admission: 12/07/23 Date of Service: 12/07/23 Chief Complaint: Fatigue, malaise, fever, weakness. HPI Narrative The patient is an 83 y/o F w/ PMHx: Chronic anemia/Fe deficiency anemia, Anxiety and Depression, HTN, HLD, RA, Diabetes mellitus type II, Chronic back pain, Chronic constipation who presents to the [facility] ED on 12/07/23 with history of living alone although her daughter does help and assist with certain activities but recently on day of presentation family reports that the patient was significantly weak with difficulty even getting up out of a chair and subjectively felt warm and was mildly confused with general fatigue and malaise prompting family to bring patient in for ED evaluation. Workup in the ED included T97.4, heart 110, BP 161/97, respiratory rate 17, 97% on room air with Tmax in the ED 101.5, most recent vital signs T90.4, heart rate 100, BP 125/56, respiratory rate 20, 97% on room air, CBC with WBC 8.6, hemoglobin 11.2, MCV 96.6, platelet 293 without marked shift with lymphopenia, unremarkable coags, CMP with sodium 130, chloride 97, BUN/creatinine 12/0.82, GFR 70, glucose 282, hepatic profile not marked appearing, lactic acid 1.6, blood culture x 2 pending per ED, rapid SARS COVID/influenza/RSV negative, Chest x-ray probable residual chronic interstitial thickening the left lower lobe with interval improvement since previous exam otherwise no acute cardiopulmonary findings, urinalysis with specific gravity 1.025, protein 30, glucose of thousand, occult blood 50, negative nitrite, negative leukocyte Estrace with no evidence of UTI, urine culture pending per ED. In the ED patient ministered 1 L normal saline as well as Tylenol 650 mg p.o. x 1. [facility] Medical History COVID residential resident Loss of hearing Wears glasses Wears dentures Post-menopausal Cancer Forgetfulness Anxiety Open wound Pain Walker as ambulation aid Bladder disease Injury of back Syncope FTT (failure to thrive) in adult History of diverticulitis Chronic constipation Non-smoker History of pain when walking History of echocardiogram Hypertension Iron deficiency anemia Osteoarthritis Rheumatoid arthritis High cholesterol Diabetes Home Medications ???Medication ???Instructions ???Recorded ???Last Taken ???Type cholecalciferol (vitamin D3) 25 2,000 unit PO DAILY SUPPLEMENT 07/25/14 05/31/23 History mcg (1,000 unit) tablet (Vitamin D3) baclofen 10 mg tablet 10 mg PO QHS MUSCLE SPASMS 05/25/23 05/30/23 History acetaminophen 500 mg tablet 1,000 mg PO BID 12/07/23 Unknown History levothyroxine 25 mcg tablet 25 mcg PO DAILY 12/07/23 Unknown History Allergy/AdvReac Type Severity Reaction Status Date / Time alendronate sodium (From Allergy Anaphylaxis Verified 12/07/23 18:26 Fosamax) Penicillins Allergy Swelling Verified 12/07/23 18:26 Family History Mother Alzheimer disease Father Myocardial infarction Hypertension Heart disease CAD (coronary artery disease) Surgical History Hx of colonoscopy History of surgery on arm S/P ORIF (open reduction internal fixation) fracture Social History household members: none Smoking Status: Never smoker alcohol intake: never substance use type: does not use ROS ROS Narrative Admission Review of Systems: CONSTITUTIONAL: No weight loss, fever, chills, + weakness or fatigue. HEENT: Eyes: No visual loss, blurred vision, double vision or yellow sclerae. Ears, Nose, Throat: No hearing loss, sneezing, congestion, runny nose or sore throat. SKIN: No rash or itching, lesions, wounds. CARDIOVASCULAR: No chest pain, chest pressure or chest discomfort, palpitations, edema, orthopnea, syncopal events. RESPIRATORY: No shortness of breath, cough or sputum, wheezing, hemoptysis. GASTROINTESTINAL: +. No anorexia, nausea, vomiting or diarrhea, abdominal pain, melena, BRBPR. GENITOURINARY: No dysuria, frequency, urgency or retention. NEUROLOGICAL: + Family reported mild cognitive impairment. No headache, dizziness, syncope, paralysis, ataxia, numbness or tingling in the extremities, focal weakness, change in bowel or bladder control, seizure. MUSCULOSKELETAL: + muscle, back pain, joint pain or stiffness. HEMATOLOGIC: + Chronic anemia, easy bleeding/bruising. LYMPHATICS: N (more content not included)... Normal [facility] Lactic Acidon 12-07-2023 Lactate [Moles/Vol] 1.6 mmol/L Normal 0.4-1.9 [facility] Comment on above: Order Comment: Y Performed By: #### L 501.080 #### [facility] [address] [place], [address] M100.678on 12-07-2023 M100.678 SARS-CoV-2 (COVID 19 ) Negative INFLUENZA A Negative INFLUENZA B Negative RSV PCR Negative Normal [facility] Comment on above: Performed By: #### L 300.4310, L500.4050, L300.3900, L100.0100, L503.6005 #### [facility] [address] [place], [address] Partial Thromboplast Timeon 12-07-2023 aPTT Coag (Bld) [Time] 28.8 s Normal 24.1-36.2 [facility] Comment on above: Performed By: #### L 300.4310, L500.4050, L300.3900, L100.0100, L503.6005 #### [facility] [address] [place], [address] Procalcitoninon 12-07-2023 Procalcitonin 0.29 ng/mL High 0.00-0.09 [facility] Comment on above: Result Comment: A procalcitonin (PCT) level above 2.0 ng/mL on the first day of ICU admission is associated with a high risk for progression to severe sepsis and/or septic shock. A PCT level below 0.5 ng/mL on the first day of ICU admission is associated with a low risk for progression to severe and/or septic shock. Note: Concentrations <0.5 ng/mL do not exclude an infection on account of localized infections (without systemic signs) which can be associated with such low concentrations, or a systemic infection in its initial stages (<6 hours). Furthermore, increased procalcitonin can occur without infection. PCT concentrations between 0.5 and 2.0 ng/mL should be interpreted taking into account the patient's history. It is recommended to retest PCT within 6-24 hours if any concentrations <2 ng/mL are obtained. Performed By: #### L 501.080 #### [facility] [address] [place], [address] Prothrombin Time w/INRon INR Coag (PPP) [Relative time] 1.1 {INR} Normal [facility] Comment on above: Performed By: #### L 300.4310, L500.4050, L300.3900, L100.0100, L503.6005 #### [facility] [address] [place], [address] PT Coag (PPP) [Time] 13.8 s Normal 11.7-14.9 [facility] Comment on above: Performed By: #### L 300.4310, L500.4050, L300.3900, L100.0100, L503.6005 #### [facility] [address] [place], [address] Urinalysis, Completeon 12-06 RBC 0-5 SEEN Normal 0-5 [facility] Comment on above: Order Comment: JAGDISH TER SPECIMEN Performed By: #### L 501.080 #### [facility] [address] [place], [address] BACTERIA 0 SEEN Normal None Seen [facility] Comment on above: Order Comment: JAGDISH TER SPECIMEN Performed By: #### L 501.080 #### [facility] [address] [place], [address] EPI,SQUAMOUS 0 SEEN Normal 5-10 [facility] Comment on above: Order Comment: JAGDISH TER SPECIMEN Performed By: #### L 501.080 #### [facility] [address] [place], [address] Mucus Ql (Urine sed) [address] [facility] Comment on above: Order Comment: JAGDISH TER SPECIMEN Performed By: #### L 501.080 #### [facility] [address] [place], [address] WBC 0 SEEN Normal 0-5 [facility] Comment on above: Order Comment: JAGDISH TER SPECIMEN Performed By: #### L 501.080 #### [facility] [address] [place], [address] Shoulder min 2 Viewson 10-22 Shoulder min 2 Views [facility] Imaging Services [address] [place] [address] Shoulder min 2 Views MR#: [id number] Acct: [id number] Name: MARTHA ENGEL Rep #: [id number] : 1940 F 83 From: Ruslan Antony PCP: Dr. Victor M Cochran MD Status: [facility] Study: Shoulder min 2 Views Date of Exam: 10/23/23 Exam# [id number] Ordering Dr: Mookie Price MD [id number] INDICATION: SHOULDER PAIN EXAMINATION/TECHNIQUE : X-RAY - LEFT XR Shoulder Min 2 Views 2 VIEWS COMPARISON: No relevant prior comparison study available __ FINDINGS: SOFT TISSUES: No soft tissue swelling or gas. No radiopaque foreign body. BONES/JOINTS: No evidence of acute fracture or dislocation. Mild sclerosis of the greater tuberosity. Preservation of the joint space.. No sclerotic or destructive changes observed. RAD/Shoulder min 2 Views IMPRESSION: Mild degenerative changes. Electronically Signed: Ruslan Cabrera MD at 14:28 EDT , CC: Dr. Mookie Price MD; Dr. Victor M Cochran MD Mechanical Engineering Specialist: Signed Normal [facility] Shoulder min 2 Views [facility] Imaging Services [address] [place], [place] [address] Shoulder min 2 Views MR#: [id number] Acct: [id number] Name: MARTHA ENGEL Rep #: [id number] : 1940 F 83 From: Ruslan Antony PCP: Dr. Victor M Cochran MD Status: REG CLI Study: Shoulder min 2 Views Date of Exam: 10/23/23 Exam# [id number] Ordering Dr: Mookie Price MD [id number] INDICATION: SHOULDER PAIN EXAMINATION/TECHNIQUE : X-RAY - RIGHT XR Shoulder Min 2 Views 2 VIEWS COMPARISON: No relevant prior comparison study available __ FINDINGS: SOFT TISSUES: No soft tissue swelling or gas. No radiopaque foreign body. BONES/JOINTS: No acute fracture or subluxation.. Normal alignment. Preservation of the joint space.. No sclerotic or destructive changes observed. RAD/Shoulder min 2 Views IMPRESSION: No evidence of acute fracture or dislocation. Electronically Signed: Ruslan Cabrera MD at 14:29 EDT , CC: Dr. Mookie Price MD; Dr. Victor M Cochran MD Mechanical Engineering Specialist: Signed [facility] Serum or plasma thyroid stim ulating hormone (TSH) measurement (units/volume)Ordered By: Victor M Cochran on 10-10-2023 TSH Qn 2.41 uIU/mL 0.358-3.74 [facility] Thyroid Stim Hormone (TSH)on 10-10-2023 TSH 2.41 uIU/mL Normal 0.358-3.74 [facility] Comment on above: Performed By: #### L 501.080 #### [facility] [place], [address] Absolute lymphocyte countOrd ered By: Victor M Bonillaok on 08-28-2023 Lymphocytes Auto (Unsp spec) [#/Vol] 1.24 10*3/uL 0.83-4.51 [facility] Automated lymphocyte count a s percentage of total leukocytesOrdered By: Victor M Bonillaok on 08-28-2023 Lymphocytes/100 WBC Auto (Unsp spec) 20.6 % 19-41 [facility] Basophil percentageOrdered B y: Victor M Cochran on 08-28-2023 Basophils/100 WBC (Bld) 0.5 % 0-1 [facility] Bilirubin [Mass/Vol] 0.30 mg/dL 0.20-1.00 [facility] Comment on above: For patients on eltr ombopag therapy, use of Dimension [place] TBIL is not recommended. Chloride [Moles/Vol] 102 mmol/L 98-107 [facility] Eosinophils/100 WBC (Bld) 2.0 % 0-5 [facility] Glucose [Mass/Vol] 314 mg/dL 74-106 [place] Comment on above: Glucose result great er than or equal to 200 mg/dLsuggests DIABETES MELLITUS per A.D.A. criteria. Hemoglobin (Bld) [Mass/Vol] 11.6 g/dL 12.0-15.0 [facility] Monocytes/100 WBC (Bld) 9.0 % 0-10 [facility] Neutrophils (Bld) [#/Vol] 4.1 10*3/uL 2.0-7.7 [facility] Neutrophils/100 WBC (Bld) 67.4 % 47-70 [facility] Potassium [Moles/Vol] 4.2 mmol/L 3.5-5.1 [facility] Protein [Mass/Vol] 7.7 g/dL 6.4-8.2 [place] Sodium [Moles/Vol] 137 mmol/L 136-145 [place] WBC (Bld) [#/Vol] 6.0 10*3/uL 4.4-11.0 [place] Determination of erythrocyte mean corpuscular volume (MCV)Ordered By: Victor M Dimas on 08-28-2023 MCV (RBC) [Entitic vol] 102.2 fL 81-99 [facility] Erythrocyte distribution wid th ratioOrdered By: [facility] on 08-28-2023 Erythrocyte distribution width (RBC) [Ratio] 14.1 % 11.6-14.6 [facility] Erythrocyte distribution wid th standard deviationOrdered By: [facility] on 08-28-2023 Erythrocyte distribution width (RBC) [Entitic vol] 52.9 fL 35.1-43.9 [facility] Hematocrit Auto (Bld) [Volum e fraction]Ordered By: [facility] 08-28-2023 Hematocrit (Bld) [Volume fraction] 37.4 % 37-47 [facility] Immature granulocytes/100 WB C Auto (Bld)Ordered By: [facility] 08-28-2023 Immature granulocytes/100 WBC (Bld) 0.500 % 0.0-0.9 [facility] Comment on above: IG% - Immature Granu locytes (promyelocytes, myelocytes and metamyelocytes) > 1% indicates that a LEFT SHIFT is Present. Laboratory - Chemistry and C hemistry - challengeOrdered By: [facility] on 08-28-2023 Albumin/Globulin [Mass ratio] 0.8 {ratio} 0.9-2.4 [facility] ALP [Catalytic activity/Vol] 69 U/L 45-117 [facility] ALT [Catalytic activity/Vol] 13 U/L 13-56 [facility] CO2 [Moles/Vol] 29.0 mmol/L 21.0-32.0 [facility] Globulin (S) [Mass/Vol] 4.4 g/dL 2.2-4.2 [facility] Urea nitrogen/Creatinine [Mass ratio] 19.5 mg/mg 10-20 [facility] Laboratory - Hematology and Cell countsOrdered By: Victor M Cochran on 08-28-2023 MCH (RBC) [Entitic mass] 31.7 pg 27.0-32.0 [facility] MCHC (RBC) [Mass/Vol] 31.0 g/dL 32-36 [facility] Nucleated RBC/100 WBC (Bld) [Ratio] 0 % 0-5 [facility] Platelet mean volume (Bld) [Entitic vol] 8.7 fL 6.2-12.0 [facility] Platelets (Bld) [#/Vol] 434 10*3/uL 150-450 [facility] No Panel InformationOrdered By: Victor M Cochran on 08-28-2023 Estimated GFR (MDRD) Amer 80 mL/min >60 [facility] Comment on above: GFR Calc Estimated GFR (MDRD) Non-Af Amer 66 mL/min >60 [facility] Comment on above: Non- GFR Calc Vitamin D 25-Hydroxy 69.0 ng/mL [facility] Comment on above: Vitamin D 25(OH) Sta tus Range Deficiency <20 ng/mL (50nmol/L) Insufficiency 20 - 30 ng/mL (50 - 75 nmol/L) Sufficiency 30 - 100 ng/mL (75 - 250 nmol/L) Toxicity >100 ng/mL (>250 nmol/L) RBC Auto (Bld) [#/Vol]Ordere d By: Victor M Cochran on 08-28-2023 RBC (Bld) [#/Vol] 3.66 10*6/uL 4.2-5.4 [facility] Serum or plasma calcium rohan urement (mass/volume)Ordered By: Victor M Cochran on 08-28-2023 Calcium [Mass/Vol] 9.8 mg/dL 8.5-10.1 [place] Serum or plasma creatinine m easurement (mass/volume)Ordered By: Victor M Cochran on 08-28-2023 Creatinine [Mass/Vol] 0.87 mg/dL 0.55-1.02 [facility] Comment on above: The validity of the calculated GFR & GFRAA in patients over 70 years has not been determined. Clinical correlation is essential. Serum or plasma thyroid stim ulating hormone (TSH) measurement (units/volume)Ordered By: Victor M Cochran on 08-28-2023 TSH Qn 4.92 uIU/mL 0.358-3.74 [facility] Serum or plasma urea nitroge n measurement (mass/volume)Ordered By: Victor M Cochran on 08-28-2023 Urea nitrogen [Mass/Vol] 17 mg/dL -18 [facility] Thin prep Papanicolaou smear with manual screeningOrdered By: Victor M Cochran on 08-28-2023 Thin prep Papanicolaou smear with manual screening 3.3 g/dL 3.2-5.0 [facility] Thin prep Papanicolaou smear with manual screening 15 U/L 15-37 [facility] Thin prep Papanicolaou smear with manual screening 6 5-15 [facility] Absolute lymphocyte countOrd ered By: Jacque Salas on 07-10-2023 Lymphocytes Auto (Unsp spec) [#/Vol] 1.62 10*3/uL 0.83-4.51 [facility] Automated lymphocyte count a s percentage of total leukocytesOrdered By: Jacque Salas on 07-10-2023 Lymphocytes/100 WBC Auto (Unsp spec) 17.1 % 19-41 [facility] Basophil percentageOrdered B y: Jacque Salas on 07-10-2023 Basophils/100 WBC (Bld) 0.4 % 0-1 [facility] Bilirubin [Mass/Vol] 0.30 mg/dL 0.20-1.00 [facility] Comment on above: For patients on eltr ombopag therapy, use of Dimension [place] TBIL is not recommended. Chloride [Moles/Vol] 108 mmol/L 98-107 [facility] Eosinophils/100 WBC (Bld) 1.9 % 0-5 [facility] Glucose [Mass/Vol] 140 mg/dL 74-106 [place] Comment on above: Fasting Glucose resu lt greater than or equal to 126 mg/dL suggests DIABETES MELLITUS per A.D.A. criteria. Hemoglobin (Bld) [Mass/Vol] 10.8 g/dL 12.0-15.0 [facility] Monocytes/100 WBC (Bld) 7.1 % 0-10 [facility] Neutrophils (Bld) [#/Vol] 6.9 10*3/uL 2.0-7.7 [facility] Neutrophils/100 WBC (Bld) 73.2 % 47-70 [facility] Potassium [Moles/Vol] 3.9 mmol/L 3.5-5.1 [facility] Protein [Mass/Vol] 6.9 g/dL 6.4-8.2 [place] Sodium [Moles/Vol] 139 mmol/L 136-145 [place] WBC (Bld) [#/Vol] 9.5 10*3/uL 4.4-11.0 [place] Determination of erythrocyte mean corpuscular volume (MCV)Ordered By: Ghislainehermonjoyce Salas on 07-10-2023 MCV (RBC) [Entitic vol] 105.6 fL 81-99 [facility] Erythrocyte distribution wid th ratioOrdered By: [facility] Adangelika on 07-10-2023 Erythrocyte distribution width (RBC) [Ratio] 17.7 % 11.6-14.6 [facility] Erythrocyte distribution wid th standard deviationOrdered By: [facility] Adangelika on 07-10-2023 Erythrocyte distribution width (RBC) [Entitic vol] 68.1 fL 35.1-43.9 [facility] Hematocrit Auto (Bld) [Volum e fraction]Ordered By: [facility] Du[facility]angel[facility] on 07-10-2023 Hematocrit (Bld) [Volume fraction] 35.6 % 37-47 [facility] Immature granulocytes/100 WB C Auto (Bld)Ordered By: peterhermonjoyce Duongangelika on 07-10-2023 Immature granulocytes/100 WBC (Bld) 0.300 % 0.0-0.9 [facility] Comment on above: IG% - Immature Granu locytes (promyelocytes, myelocytes and metamyelocytes) > 1% indicates that a LEFT SHIFT is Present. Laboratory - Chemistry and C hemistry - challengeOrdered By: Ghislainehermonjoyce Salas on 07-10-2023 Albumin/Globulin [Mass ratio] 0.6 {ratio} 0.9-2.4 [facility] ALP [Catalytic activity/Vol] 75 U/L 45-117 [facility] ALT [Catalytic activity/Vol] 14 U/L 13-56 [facility] CO2 [Moles/Vol] 28.0 mmol/L 21.0-32.0 [facility] Globulin (S) [Mass/Vol] 4.2 g/dL 2.2-4.2 [facility] Urea nitrogen/Creatinine [Mass ratio] 18.1 mg/mg 10-20 [facility] Laboratory - Hematology and Cell countsOrdered By: Jacque Salas on 07-10-2023 Anisocytosis Ql (Bld) 1+ [facility] MCH (RBC) [Entitic mass] 32.0 pg 27.0-32.0 [facility] MCHC (RBC) [Mass/Vol] 30.3 g/dL 32-36 [facility] Nucleated RBC/100 WBC (Bld) [Ratio] 0 % 0-5 [facility] Platelets (Bld) [#/Vol] 412 10*3/uL 150-450 [facility] No Panel InformationOrdered By: Jacque Salas on 07-10-2023 Estimated GFR (MDRD) Amer 121 mL/min >60 [facility] Comment on above: GFR Calc Estimated GFR (MDRD) Non-Af Amer 100 mL/min >60 [facility] Comment on above: Non- GFR Calc Platelet mean volume Kunal-Ec ker (Bld) [Entitic vol]Ordered By: Jacque Salas on 07-10-2023 Platelet mean volume (Bld) [Entitic vol] 8.5 fL 6.2-12.0 [facility] RBC Auto (Bld) [#/Vol]Ordere d By: Jacque Salas on 07-10-2023 RBC (Bld) [#/Vol] 3.37 10*6/uL 4.2-5.4 [facility] Serum or plasma calcium rohan urement (mass/volume)Ordered By: Jacque Salas on 07-10-2023 Calcium [Mass/Vol] 9.6 mg/dL 8.5-10.1 [facility] Serum or plasma creatinine m easurement (mass/volume)Ordered By: Jacque Salas on 07-10-2023 Creatinine [Mass/Vol] 0.61 mg/dL 0.55-1.02 [facility] Comment on above: The validity of the calculated GFR & GFRAA in patients over 70 years has not been determined. Clinical correlation is essential. Serum or plasma urea nitroge n measurement (mass/volume)Ordered By: Jacque Salas on 07-10-2023 Urea nitrogen [Mass/Vol] 11 mg/dL 7-18 [facility] Thin prep Papanicolaou smear with manual screeningOrdered By: Jacque Salas on 07-10-2023 Thin prep Papanicolaou smear with manual screening 2.7 g/dL 3.2-5.0 [facility] Thin prep Papanicolaou smear with manual screening 15 U/L 15-37 [facility] Thin prep Papanicolaou smear with manual screening 3 5-15 [facility] Glucose Glucometer (BldC) [M ass/Vol]Ordered By: Saturnino Green on 06-26-2023 Glucose [Mass/Vol] 149 mg/dL 74-106 [place] Comment on above: MANAGEMENT OF PATIEN T CARE PER NURSING PROTOCOL Basophil percentageOrdered B y: Jacque Salas on 06-20-2023 Bilirubin [Mass/Vol] 0.40 mg/dL 0.20-1.00 [facility] Comment on above: For patients on eltr ombopag therapy, use of Dimension [place] TBIL is not recommended. Chloride [Moles/Vol] 106 mmol/L 98-107 [facility] Glucose [Mass/Vol] 111 mg/dL 74-106 [place] Comment on above: Fasting Glucose resu lt from 100 to 125 mg/dL suggests IMPAIRED HOMEOSTASIS per A.D.A. criteria. Potassium [Moles/Vol] 3.9 mmol/L 3.5-5.1 [facility] Protein [Mass/Vol] 7.1 g/dL 6.4-8.2 [place] Sodium [Moles/Vol] 139 mmol/L 136-145 [place] Laboratory - Chemistry and C hemistry - challengeOrdered By: Jacque Salas on 06-20-2023 ALP [Catalytic activity/Vol] 70 U/L 45-117 [facility] ALT [Catalytic activity/Vol] 12 U/L 13-56 [facility] CO2 [Moles/Vol] 30.0 mmol/L 21.0-32.0 [facility] Globulin (S) [Mass/Vol] 4.6 g/dL 2.2-4.2 [facility] Urea nitrogen/Creatinine [Mass ratio] 16.2 mg/mg 10-20 [facility] No Panel InformationOrdered By: Jacque Salas on 06-20-2023 Estimated GFR (MDRD) Amer 107 mL/min >60 [facility] Comment on above: GFR Calc Estimated GFR (MDRD) Non-Af Amer 88 mL/min >60 [facility] Comment on above: Non- GFR Calc Serum or plasma albumin rohan urement (mass/volume)Ordered By: Jacque Salas on 06-20-2023 Albumin [Mass/Vol] 2.5 g/dL 3.2-5.0 [place] Serum or plasma albumin/glob ulin mass ratioOrdered By: Jacque Salas on 06-20-2023 Albumin/Globulin [Mass ratio] 0.5 {ratio} 0.9-2.4 [facility] Serum or plasma calcium rohan urement (mass/volume)Ordered By: Jacque Salas on 06-20-2023 Calcium [Mass/Vol] 9.8 mg/dL 8.5-10.1 [place] Serum or plasma creatinine m easurement (mass/volume)Ordered By: Jacque Salas on 06-20-2023 Creatinine [Mass/Vol] 0.68 mg/dL 0.55-1.02 [facility] Comment on above: The validity of the calculated GFR & GFRAA in patients over 70 years has not been determined. Clinical correlation is essential. Serum or plasma urea nitroge n measurement (mass/volume)Ordered By: Jacque Salas on 06-20-2023 Urea nitrogen [Mass/Vol] 11 mg/dL 7-18 [facility] Thin prep Papanicolaou smear with manual screeningOrdered By: Jacque Salas on 06-20-2023 Thin prep Papanicolaou smear with manual screening 12 U/L 15-37 [facility] Thin prep Papanicolaou smear with manual screening 3 5-15 [facility] Absolute lymphocyte countOrd ered By: Jacque Salas on 06-19-2023 Lymphocytes Auto (Unsp spec) [#/Vol] 0.99 10*3/uL 0.83-4.51 [facility] Basophil percentageOrdered B y: Jacque Salas on 06-19-2023 Basophils/100 WBC (Bld) 0.4 % 0-1 [facility] Eosinophils/100 WBC (Bld) 1.3 % 0-5 [facility] Neutrophils (Bld) [#/Vol] 6.7 10*3/uL 2.0-7.7 [facility] Neutrophils/100 WBC (Bld) 78.7 % 47-70 [facility] WBC (Bld) [#/Vol] 8.6 10*3/uL 4.4-11.0 [place] Blood erythrocytes count (nu mber/volume)Ordered By: Jacque Salas on 06-19-2023 RBC (Bld) [#/Vol] 3.65 10*6/uL 4.2-5.4 [facility] Blood hemoglobin measurement (mass/volume)Ordered By: Jacque Salas on 06-19-2023 Hemoglobin (Bld) [Mass/Vol] 11.4 g/dL 12.0-15.0 [facility] Blood lymphocytes/100 leukoc ytesOrdered By: Jacque Salas on 06-19-2023 Lymphocytes/100 WBC (Bld) 11.6 % 19-41 [facility] Blood monocytes/100 leukocyt esOrdered By: Jacque Salas on 06-19-2023 Monocytes/100 WBC (Bld) 7.6 % 0-10 [facility] Blood platelet adequacy dete ction by light microscopyOrdered By: Jacque Salas on 06-19-2023 Platelets LM Ql (Bld) MKD INC ADEQ [facility] Blood platelet mean volumeOr dered By: Jacque Salas on 06-19-2023 Platelet mean volume (Bld) [Entitic vol] 8.0 fL 6.2-12.0 [facility] Determination of erythrocyte mean corpuscular volume (MCV)Ordered By: Jacque Salas on 06-19-2023 MCV (RBC) [Entitic vol] 102.5 fL 81-99 [facility] Hematocrit Auto (Bld) [Volum e fraction]Ordered By: Jacque Salas on 06-19-2023 Hematocrit (Bld) [Volume fraction] 37.4 % 37-47 [facility] Laboratory - Hematology and Cell countsOrdered By: Jacque Salas on 06-19-2023 Erythrocyte distribution width (RBC) [Entitic vol] 60.7 fL 35.1-43.9 [facility] Erythrocyte distribution width (RBC) [Ratio] 16.5 % 11.6-14.6 [facility] Immature granulocytes/100 WBC (Bld) 0.400 % 0.0-0.9 [facility] Comment on above: IG% - Immature Granu locytes (promyelocytes, myelocytes and metamyelocytes) > 1% indicates that a LEFT SHIFT is Present. MCH (RBC) [Entitic mass] 31.2 pg 27.0-32.0 [facility] Nucleated RBC/100 WBC (Bld) [Ratio] 0 % 0-5 [facility] MCHC Auto (RBC) [Mass/Vol]Or dered By: Jacque Salas on 06-19-2023 MCHC (RBC) [Mass/Vol] 30.5 g/dL 32-36 [facility] No Panel InformationOrdered By: Jacque Salas on 06-19-2023 Vitamin D 25-Hydroxy 85.6 ng/mL [facility] Comment on above: Vitamin D 25(OH) Sta tus Range Deficiency <20 ng/mL (50nmol/L) Insufficiency 20 - 30 ng/mL (50 - 75 nmol/L) Sufficiency 30 - 100 ng/mL (75 - 250 nmol/L) Toxicity >100 ng/mL (>250 nmol/L) Platelets bldOrdered By: Kerwin Salas on 06-19-2023 Platelets (Bld) [#/Vol] 774 10*3/uL 150-450 [facility] Review by pathologistOrdered By: Jacque Salas on 06-19-2023 Pathologist review Jarrett (Unsp spec) [Interp] Reviewed [facility] Comment on above: Previous reported re sult: Emiliana ellis Edited by: CRISTINE on 06/19/23:1216Macrocytic anemia.Thrombocytosis.Clinical correlation necessary.Antonio Gary M.D. 06/19/23 AMENDED REPORT 06/19/23 1216 PATH REV previously reported as: Emiliana ellis Whole blood hemoglobin A1c/t otal hemoglobin ratio (mass fraction)Ordered By: Jacque Salas on 06-19-2023 HbA1c (Bld) [Mass fraction] 7.9 % 3.8-5.6 [facility] Comment on above: Normal < 5.7 % Predi abetic 5.7 - 6.4 % Diabetic >or= 6.5 % Please note range changes. Glucose Glucometer (BldC) [M ass/Vol]Ordered By: Victor M Cochran on 06-16-2023 Glucose [Mass/Vol] 109 mg/dL 74-106 [place] Comment on above: MANAGEMENT OF PATIEN T CARE PER NURSING PROTOCOL Absolute lymphocyte countOrd ered By: Victor M Cochran on 06-15-2023 Lymphocytes Auto (Unsp spec) [#/Vol] 1.81 10*3/uL 0.83-4.51 [facility] Basophil percentageOrdered B y: Victor M Cochran on 06-15-2023 Basophils/100 WBC (Bld) 0.5 % 0-1 [facility] Chloride [Moles/Vol] 105 mmol/L 98-107 [facility] Eosinophils/100 WBC (Bld) 3.6 % 0-5 [facility] Glucose [Mass/Vol] 140 mg/dL 74-106 [place] Comment on above: Fasting Glucose resu lt greater than or equal to 126 mg/dL suggests DIABETES MELLITUS per A.D.A. criteria. Neutrophils (Bld) [#/Vol] 4.7 10*3/uL 2.0-7.7 [facility] Neutrophils/100 WBC (Bld) 62.6 % 47-70 [facility] Potassium [Moles/Vol] 3.8 mmol/L 3.5-5.1 [facility] Sodium [Moles/Vol] 138 mmol/L 136-145 [place] WBC (Bld) [#/Vol] 7.5 10*3/uL 4.4-11.0 [place] Blood erythrocytes count (nu mber/volume)Ordered By: Victor M Cochran on 06-15-2023 RBC (Bld) [#/Vol] 2.97 10*6/uL 4.2-5.4 [facility] Blood hemoglobin measurement (mass/volume)Ordered By: Victor M Cochran on 06-15-2023 Hemoglobin (Bld) [Mass/Vol] 9.4 g/dL 12.0-15.0 [facility] Blood lymphocytes/100 leukoc ytesOrdered By: Victor M Cochran on 06-15-2023 Lymphocytes/100 WBC (Bld) 24.0 % 19-41 [facility] Blood monocytes/100 leukocyt esOrdered By: Victor M Cochran on 06-15-2023 Monocytes/100 WBC (Bld) 8.6 % 0-10 [facility] Blood platelet mean volumeOr dered By: Victor M Cochran on 06-15-2023 Platelet mean volume (Bld) [Entitic vol] 8.1 fL 6.2-12.0 [facility] Determination of erythrocyte mean corpuscular volume (MCV)Ordered By: Victor M Cochran on 06-15-2023 MCV (RBC) [Entitic vol] 101.3 fL 81-99 [facility] Hematocrit Auto (Bld) [Volum e fraction]Ordered By: Victor M Cochran 06-15-2023 Hematocrit (Bld) [Volume fraction] 30.1 % 37-47 [facility] Laboratory - Chemistry and C hemistry - challengeOrdered By: Victor M Cochran 06-15-2023 CO2 [Moles/Vol] 29.0 mmol/L 21.0-32.0 [facility] Urea nitrogen/Creatinine [Mass ratio] 11.3 mg/mg 10-20 [facility] Laboratory - Hematology and Cell countsOrdered By: Victor M Cochran on 06-15-2023 Erythrocyte distribution width (RBC) [Entitic vol] 55.8 fL 35.1-43.9 [facility] Erythrocyte distribution width (RBC) [Ratio] 15.3 % 11.6-14.6 [facility] Immature granulocytes/100 WBC (Bld) 0.700 % 0.0-0.9 [facility] Comment on above: IG% - Immature Granu locytes (promyelocytes, myelocytes and metamyelocytes) > 1% indicates that a LEFT SHIFT is Present. MCH (RBC) [Entitic mass] 31.6 pg 27.0-32.0 [facility] Nucleated RBC/100 WBC (Bld) [Ratio] 0 % 0-5 [facility] MCHC Auto (RBC) [Mass/Vol]Or dered By: Victor M Cochran on 06-15-2023 MCHC (RBC) [Mass/Vol] 31.2 g/dL 32-36 [facility] No Panel InformationOrdered By: Victor M Cochran on 06-15-2023 Estimated Creatinine Clearance Calc 23.96 ml/min [facility] Estimated GFR (MDRD) Amer 119 mL/min >60 [facility] Comment on above: GFR Calc Estimated GFR (MDRD) Non-Af Amer 98 mL/min >60 [facility] Comment on above: Non- GFR Calc Platelets bldOrdered By: Victor M Cochran on 06-15-2023 Platelets (Bld) [#/Vol] 675 10*3/uL 150-450 [facility] Serum or plasma calcium rohan urement (mass/volume)Ordered By: Victor M Cochran on 06-15-2023 Calcium [Mass/Vol] 9.1 mg/dL 8.5-10.1 [place] Serum or plasma creatinine m easurement (mass/volume)Ordered By: Victor M Cochran on 06-15-2023 Creatinine [Mass/Vol] 0.62 mg/dL 0.55-1.02 [facility] Comment on above: The validity of the calculated GFR & GFRAA in patients over 70 years has not been determined. Clinical correlation is essential. Serum or plasma urea nitroge n measurement (mass/volume)Ordered By: Victor M Cochran on 06-15-2023 Urea nitrogen [Mass/Vol] 7 mg/dL 7-18 [facility] Thin prep Papanicolaou smear with manual screeningOrdered By: Victor M Cochran 06-15-2023 Thin prep Papanicolaou smear with manual screening 4 5-15 [facility] Whole blood hemoglobin A1c/t otal hemoglobin ratio (mass fraction)Ordered By: Victor M Cochran on 06-15-2023 HbA1c (Bld) [Mass fraction] 8.3 % 3.8-5.6 [facility] Comment on above: Normal < 5.7 % Predi abetic 5.7 - 6.4 % Diabetic >or= 6.5 % Please note range changes. Laboratory - Microbiology an d Antimicrobial susceptibilityOrdered By: Marcie Bradleybetito on 06-07-2023 SARS-CoV-2 (COVID-19) RNA KIKI+probe Ql (Unsp spec) SARS-CoV-2 (COVID 19 PCR) [facility] SARS-CoV-2 (COVID-19) RNA KIKI+probe Ql (Unsp spec) SARS-CoV-2 (COVID 19 PCR) [facility] Absolute lymphocyte countOrd ered By: Victor M Cochran on 06-01-2023 Lymphocytes Auto (Unsp spec) [#/Vol] 0.91 10*3/uL 0.83-4.51 [facility] Basophil percentageOrdered B y: Victor M Cochran on 06-01-2023 Basophils/100 WBC (Bld) 0.5 % 0-1 [facility] Chloride [Moles/Vol] 101 mmol/L 98-107 [facility] Eosinophils/100 WBC (Bld) 5.3 % 0-5 [facility] Glucose [Mass/Vol] 277 mg/dL 74-106 [place] Comment on above: Glucose result great er than or equal to 200 mg/dLsuggests DIABETES MELLITUS per A.D.A. criteria. Neutrophils (Bld) [#/Vol] 4.9 10*3/uL 2.0-7.7 [facility] Neutrophils/100 WBC (Bld) 74.2 % 47-70 [facility] Potassium [Moles/Vol] 4.2 mmol/L 3.5-5.1 [facility] Sodium [Moles/Vol] 140 mmol/L 136-145 [place] WBC (Bld) [#/Vol] 6.6 10*3/uL 4.4-11.0 [place] Blood erythrocytes count (nu mber/volume)Ordered By: Victor M Cochran on 06-01-2023 RBC (Bld) [#/Vol] 3.79 10*6/uL 4.2-5.4 [facility] Blood hemoglobin measurement (mass/volume)Ordered By: [facility] on 06-01-2023 Hemoglobin (Bld) [Mass/Vol] 12.0 g/dL 12.0-15.0 [facility] Blood lymphocytes/100 leukoc ytesOrdered By: [facility] on 06-01-2023 Lymphocytes/100 WBC (Bld) 13.8 % 19-41 [facility] Blood monocytes/100 leukocyt esOrdered By: [facility] on 06-01-2023 Monocytes/100 WBC (Bld) 5.9 % 0-10 [facility] Blood platelet mean volumeOr dered By: [facility] on 06-01-2023 Platelet mean volume (Bld) [Entitic vol] 8.5 fL 6.2-12.0 [facility] Determination of erythrocyte mean corpuscular volume (MCV)Ordered By: [facility] on 06-01-2023 MCV (RBC) [Entitic vol] 102.6 fL 81-99 [facility] Hematocrit Auto (Bld) [Volum e fraction]Ordered By: [facility] on 06-01-2023 Hematocrit (Bld) [Volume fraction] 38.9 % 37-47 [facility] Laboratory - Chemistry and C hemistry - challengeOrdered By: [facility] on 06-01-2023 CO2 [Moles/Vol] 34.0 mmol/L 21.0-32.0 [facility] Urea nitrogen/Creatinine [Mass ratio] 22.0 mg/mg 10-20 [facility] Laboratory - Hematology and Cell countsOrdered By: [facility] on 06-01-2023 Erythrocyte distribution width (RBC) [Entitic vol] 53.2 fL 35.1-43.9 [facility] Erythrocyte distribution width (RBC) [Ratio] 14.0 % 11.6-14.6 [facility] Immature granulocytes/100 WBC (Bld) 0.300 % 0.0-0.9 [facility] Comment on above: IG% - Immature Granu locytes (promyelocytes, myelocytes and metamyelocytes) > 1% indicates that a LEFT SHIFT is Present. MCH (RBC) [Entitic mass] 31.7 pg 27.0-32.0 [facility] Nucleated RBC/100 WBC (Bld) [Ratio] 0 % 0-5 [facility] MCHC Auto (RBC) [Mass/Vol]Or dered By: Victor M Cochran on 06-01-2023 MCHC (RBC) [Mass/Vol] 30.8 g/dL 32-36 [facility] No Panel InformationOrdered By: Victor M Cochran on 06-01-2023 Estimated Creatinine Clearance Calc 26.12 ml/min [facility] Estimated GFR (MDRD) Amer 125 mL/min >60 [facility] Comment on above: GFR Calc Estimated GFR (MDRD) Non-Af Amer 103 mL/min >60 [facility] Comment on above: Non- GFR Calc Platelets bldOrdered By: Victor M Cochran on 06-01-2023 Platelets (Bld) [#/Vol] 376 10*3/uL 150-450 [facility] Serum or plasma calcium rohan urement (mass/volume)Ordered By: Victor M Cochran on 06-01-2023 Calcium [Mass/Vol] 8.8 mg/dL 8.5-10.1 [place] Serum or plasma creatinine m easurement (mass/volume)Ordered By: Victor M Cochran on 06-01-2023 Creatinine [Mass/Vol] 0.59 mg/dL 0.55-1.02 [facility] Comment on above: The validity of the calculated GFR & GFRAA in patients over 70 years has not been determined. Clinical correlation is essential. Serum or plasma urea nitroge n measurement (mass/volume)Ordered By: Victor M Cochran on 06-01-2023 Urea nitrogen [Mass/Vol] 13 mg/dL 7-18 [facility] Thin prep Papanicolaou smear with manual screeningOrdered By: Victor M Cochran on 06-01-2023 Thin prep Papanicolaou smear with manual screening 5 5-15 [facility] Absolute lymphocyte countOrd ered By: Saturnino Londono on 05-31-2023 Lymphocytes Auto (Unsp spec) [#/Vol] 1.13 10*3/uL 0.83-4.51 [facility] Basophil percentageOrdered B y: Saturnino Londono on 05-31-2023 Basophils/100 WBC (Bld) 0.4 % 0-1 [facility] Chloride [Moles/Vol] 104 mmol/L 98-107 [facility] Eosinophils/100 WBC (Bld) 4.4 % 0-5 [facility] Glucose [Mass/Vol] 250 mg/dL 74-106 [place] Comment on above: Glucose result great er than or equal to 200 mg/dLsuggests DIABETES MELLITUS per A.D.A. criteria. Neutrophils (Bld) [#/Vol] 6.7 10*3/uL 2.0-7.7 [facility] Neutrophils/100 WBC (Bld) 74.7 % 47-70 [facility] Potassium [Moles/Vol] 4.0 mmol/L 3.5-5.1 [facility] Sodium [Moles/Vol] 140 mmol/L 136-145 [place] WBC (Bld) [#/Vol] 8.9 10*3/uL 4.4-11.0 [place] Blood erythrocytes count (nu mber/volume)Ordered By: Saturnino Londono on 05-31-2023 RBC (Bld) [#/Vol] 3.45 10*6/uL 4.2-5.4 [facility] Blood hemoglobin measurement (mass/volume)Ordered By: Saturnino Londono on 05-31-2023 Hemoglobin (Bld) [Mass/Vol] 11.1 g/dL 12.0-15.0 [facility] Blood lymphocytes/100 leukoc ytesOrdered By: Saturnino Londono on 05-31-2023 Lymphocytes/100 WBC (Bld) 12.7 % 19-41 [facility] Blood monocytes/100 leukocyt esOrdered By: Saturnino Londono on 05-31-2023 Monocytes/100 WBC (Bld) 7.2 % 0-10 [facility] Blood platelet mean volumeOr dered By: Saturnino Londono on 05-31-2023 Platelet mean volume (Bld) [Entitic vol] 8.6 fL 6.2-12.0 [facility] Determination of erythrocyte mean corpuscular volume (MCV)Ordered By: Saturnino Londono on 05-31-2023 MCV (RBC) [Entitic vol] 102.0 fL 81-99 [facility] Hematocrit Auto (Bld) [Volum e fraction]Ordered By: Saturnino Londono on 05-31-2023 Hematocrit (Bld) [Volume fraction] 35.2 % 37-47 [facility] Laboratory - Chemistry and C hemistry - challengeOrdered By: Saturnino Londono on 05-31-2023 CO2 [Moles/Vol] 31.0 mmol/L 21.0-32.0 [facility] Urea nitrogen/Creatinine [Mass ratio] 25.6 mg/mg 10-20 [facility] Laboratory - Hematology and Cell countsOrdered By: Saturnino Londono on 05-31-2023 Erythrocyte distribution width (RBC) [Entitic vol] 52.7 fL 35.1-43.9 [facility] Erythrocyte distribution width (RBC) [Ratio] 14.2 % 11.6-14.6 [facility] Immature granulocytes/100 WBC (Bld) 0.600 % 0.0-0.9 [facility] Comment on above: IG% - Immature Granu locytes (promyelocytes, myelocytes and metamyelocytes) > 1% indicates that a LEFT SHIFT is Present. MCH (RBC) [Entitic mass] 32.2 pg 27.0-32.0 [facility] Nucleated RBC/100 WBC (Bld) [Ratio] 0 % 0-5 [facility] MCHC Auto (RBC) [Mass/Vol]Or dered By: Saturnino Londono on 05-31-2023 MCHC (RBC) [Mass/Vol] 31.5 g/dL 32-36 [facility] No Panel InformationOrdered By: Saturnino Londono on 05-31-2023 Estimated Creatinine Clearance Calc 25.71 ml/min [facility] Estimated GFR (MDRD) Amer 137 mL/min >60 [facility] Comment on above: GFR Calc Estimated GFR (MDRD) Non-Af Amer 113 mL/min >60 [facility] Comment on above: Non- GFR Calc Platelets bldOrdered By: Hansel Londono on 05-31-2023 Platelets (Bld) [#/Vol] 331 10*3/uL 150-450 [facility] Serum or plasma calcium rohan urement (mass/volume)Ordered By: Saturnino Londono on 05-31-2023 Calcium [Mass/Vol] 8.3 mg/dL 8.5-10.1 [place] Serum or plasma creatinine m easurement (mass/volume)Ordered By: Saturnino Londono on 05-31-2023 Creatinine [Mass/Vol] 0.55 mg/dL 0.55-1.02 [facility] Comment on above: The validity of the calculated GFR & GFRAA in patients over 70 years has not been determined. Clinical correlation is essential. Serum or plasma urea nitroge n measurement (mass/volume)Ordered By: Saturnino Londono on 05-31-2023 Urea nitrogen [Mass/Vol] 14 mg/dL -18 [facility] Thin prep Papanicolaou smear with manual screeningOrdered By: Saturnino Londono on 05-31-2023 Thin prep Papanicolaou smear with manual screening 5 5-15 [facility] Glucose Glucometer (BldC) [M ass/Vol]Ordered By: Andres Gomez on 05-28-2023 Glucose [Mass/Vol] 134 mg/dL 74-106 [place] Comment on above: MANAGEMENT OF PATIEN T CARE PER NURSING PROTOCOL Basophil percentageOrdered B y: Gogo Browne on 05-26-2023 Bilirubin [Mass/Vol] 0.40 mg/dL 0.20-1.00 [facility] Comment on above: For patients on eltr ombopag therapy, use of Dimension [place] TBIL is not recommended. Protein [Mass/Vol] 6.5 g/dL 6.4-8.2 [place] [facility] - Chemistry and C hemistry - challengeOrdered By: Gogo Browne on 05-26-2023 ALP [Catalytic activity/Vol] 79 U/L 45-117 [facility] ALT [Catalytic activity/Vol] 18 U/L 13-56 [facility] Globulin (S) [Mass/Vol] 4.0 g/dL 2.2-4.2 [facility] Serum or plasma albumin rohan urement (mass/volume)Ordered By: Gogo Browne on 12-15-2023 Albumin [Mass/Vol] 2.5 g/dL 3.2-5.0 [place] Serum or plasma albumin/glob ulin mass ratioOrdered By: Gogo Browne on 05-26-2023 Albumin/Globulin [Mass ratio] 0.6 {ratio} 0.9-2.4 [facility] Thin prep Papanicolaou smear with manual screeningOrdered By: Gogo Browne on 05-26-2023 Thin prep Papanicolaou smear with manual screening 14 U/L 15-37 [facility] Absolute lymphocyte countOrd ered By: Raj De La Rosa on 05-25-2023 Lymphocytes Auto (Unsp spec) [#/Vol] 1.32 10*3/uL 0.83-4.51 [facility] Absolute lymphocyte countOrd ered By: Victor M Dimas on 05-25-2023 Lymphocytes Auto (Unsp spec) [#/Vol] 1.23 10*3/uL 0.83-4.51 [facility] Basophil percentageOrdered B y: Raj De La Rosa on 05-25-2023 Lactate [Moles/Vol] 1.3 mmol/L 0.4-2.0 [facility] Basophil percentage 0-5 SEEN /hpf 0-5 [facility] Basophils/100 WBC (Bld) 0.7 % 0-1 [facility] Bilirubin [Mass/Vol] 0.40 mg/dL 0.20-1.00 [facility] Comment on above: For patients on eltr ombopag therapy, use of [employer] [place] TBIL is not recommended. Chloride [Moles/Vol] 104 mmol/L 98-107 [facility] Eosinophils/100 WBC (Bld) 2.8 % 0-5 [facility] Glucose [Mass/Vol] 135 mg/dL 74-106 [place] Comment on above: Fasting Glucose resu lt greater than or equal to 126 mg/dL suggests DIABETES MELLITUS per A.D.A. criteria. Neutrophils (Bld) [#/Vol] 6.5 10*3/uL 2.0-7.7 [facility] Neutrophils/100 WBC (Bld) 71.6 % 47-70 [facility] Potassium [Moles/Vol] 4.4 mmol/L 3.5-5.1 [facility] Protein [Mass/Vol] 7.0 g/dL 6.4-8.2 [place] Sodium [Moles/Vol] 137 mmol/L 136-145 [place] WBC (Bld) [#/Vol] 9.1 10*3/uL 4.4-11.0 [place] Basophil percentageOrdered B y: Gogo Browne on 05-25-2023 Basophil percentage 2.5 mg/dL 2.5-4.9 [facility] Basophil percentageOrdered B y: Victor M Cochran on 05-25-2023 Basophils/100 WBC (Bld) 0.5 % 0-1 [facility] Bilirubin [Mass/Vol] 0.40 mg/dL 0.20-1.00 [facility] Comment on above: For patients on eltr ombopag therapy, use of [employer] [place] TBIL is not recommended. Chloride [Moles/Vol] 103 mmol/L 98-107 [facility] Eosinophils/100 WBC (Bld) 2.8 % 0-5 [facility] Glucose [Mass/Vol] 155 mg/dL 74-106 [place] Comment on above: Fasting Glucose resu lt greater than or equal to 126 mg/dL suggests DIABETES MELLITUS per A.D.A. criteria. Neutrophils (Bld) [#/Vol] 6.1 10*3/uL 2.0-7.7 [facility] Neutrophils/100 WBC (Bld) 73.6 % 47-70 [facility] Potassium [Moles/Vol] 4.3 mmol/L 3.5-5.1 [facility] Protein [Mass/Vol] 7.8 g/dL 6.4-8.2 [place] Sodium [Moles/Vol] 139 mmol/L 136-145 [place] WBC (Bld) [#/Vol] 8.3 10*3/uL 4.4-11.0 [place] Bilirubin Test strip Ql (U)O rdered By: Raj De La Rosa on 05-25-2023 Bilirubin Ql (U) Negative Negative [facility] Blood erythrocytes count (nu mber/volume)Ordered By: Raj De La Rosa on 05-25-2023 RBC (Bld) [#/Vol] 4.01 10*6/uL 4.2-5.4 [facility] Blood erythrocytes count (nu mber/volume)Ordered By: Victor M Cochran on 05-25-2023 RBC (Bld) [#/Vol] 4.21 10*6/uL 4.2-5.4 [facility] Blood hemoglobin measurement (mass/volume)Ordered By: Raj De La Rosa on 05-25-2023 Hemoglobin (Bld) [Mass/Vol] 12.7 g/dL 12.0-15.0 [facility] Blood hemoglobin measurement (mass/volume)Ordered By: Victor M Cochran on 05-25-2023 Hemoglobin (Bld) [Mass/Vol] 13.3 g/dL 12.0-15.0 [facility] Blood lymphocytes/100 leukoc ytesOrdered By: Raj De La Rosa on 05-25-2023 Lymphocytes/100 WBC (Bld) 14.5 % - [facility] Blood lymphocytes/100 leukoc ytesOrdered By: Victor M Cochran on 05-25-2023 Lymphocytes/100 WBC (Bld) 14.8 % - [facility] Blood monocytes/100 leukocyt esOrdered By: Raj De La Rosa on 05-25-2023 Monocytes/100 WBC (Bld) 10.0 % 0-10 [facility] Blood monocytes/100 leukocyt esOrdered By: Victor M Cochran on 05-25-2023 Monocytes/100 WBC (Bld) 8.1 % 0-10 [facility] Blood platelet mean volumeOr dered By: Raj De La Rosa on 05-25-2023 Platelet mean volume (Bld) [Entitic vol] 8.2 fL 6.2-12.0 [facility] Blood platelet mean volumeOr dered By: Victor M Cochran on 05-25-2023 Platelet mean volume (Bld) [Entitic vol] 8.5 fL 6.2-12.0 [facility] Determination of erythrocyte mean corpuscular volume (MCV)Ordered By: Raj De La Rosa on 05-25-2023 MCV (RBC) [Entitic vol] 105.2 fL 81-99 [facility] Determination of erythrocyte mean corpuscular volume (MCV)Ordered By: Victor M Cochran on 05-25-2023 MCV (RBC) [Entitic vol] 103.8 fL 81-99 [facility] Hematocrit Auto (Bld) [Volum e fraction]Ordered By: Raj De La Rosa on 05-25-2023 Hematocrit (Bld) [Volume fraction] 42.2 % 37-47 [facility] Hematocrit Auto (Bld) [Volum e fraction]Ordered By: Victor M Cochran on 05-25-2023 Hematocrit (Bld) [Volume fraction] 43.7 % 37-47 [facility] Influenza virus A and B and SARS-CoV-2 (COVID-19) Ag panel - Upper respiratory specimOrdered By: Raj De La Rosa on 05-25-2023 SARS-CoV-2 & FLU Antigen (Rapid) SARS-CoV-2 (COVID 19) [facility] SARS-CoV-2 & FLU Antigen (Rapid) Influenzae B [facility] Ketones Test strip Ql (U)Ord ered By: Raj De La Rosa on 05-25-2023 Ketones Ql (U) 50 mg/dl Negative [facility] Laboratory - Chemistry and C hemistry - challengeOrdered By: Gogo Browne on 05-25-2023 Magnesium [Mass/Vol] 2.0 mg/dL 1.6-2.6 [facility] Laboratory - Chemistry and C hemistry - challengeOrdered By: Raj De La Rosa on 05-25-2023 ALP [Catalytic activity/Vol] 81 U/L 45-117 [facility] ALT [Catalytic activity/Vol] 19 U/L 13-56 [facility] CO2 [Moles/Vol] 29.0 mmol/L 21.0-32.0 [facility] Globulin (S) [Mass/Vol] 4.4 g/dL 2.2-4.2 [facility] Lipase [Catalytic activity/Vol] 33 U/L 13-75 [facility] Comment on above: Please note:LIPASE r evised reference range effective 22. New Lipase methodology. Expected to produce lower values than the previous assay method. NEW Reference Range: 13 - 75 U/L Urea nitrogen/Creatinine [Mass ratio] 19.6 mg/mg 10-20 [facility] Laboratory - Chemistry and C hemistry - challengeOrdered By: Victor M Cochran on 05-25-2023 ALP [Catalytic activity/Vol] 94 U/L 45-117 [facility] ALT [Catalytic activity/Vol] 18 U/L 13-56 [facility] CO2 [Moles/Vol] 30.0 mmol/L 21.0-32.0 [facility] Globulin (S) [Mass/Vol] 4.8 g/dL 2.2-4.2 [facility] Urea nitrogen/Creatinine [Mass ratio] 19.5 mg/mg 10-20 [facility] Laboratory - Hematology and Cell countsOrdered By: Raj De La Rosa on 05-25-2023 Erythrocyte distribution width (RBC) [Entitic vol] 52.9 fL 35.1-43.9 [facility] Erythrocyte distribution width (RBC) [Ratio] 13.7 % 11.6-14.6 [facility] Immature granulocytes/100 WBC (Bld) 0.400 % 0.0-0.9 [facility] Comment on above: IG% - Immature Granu locytes (promyelocytes, myelocytes and metamyelocytes) > 1% indicates that a LEFT SHIFT is Present. MCH (RBC) [Entitic mass] 31.7 pg 27.0-32.0 [facility] Nucleated RBC/100 WBC (Bld) [Ratio] 0 % 0-5 [facility] Laboratory - Hematology and Cell countsOrdered By: Victor M Cochran on 05-25-2023 Erythrocyte distribution width (RBC) [Entitic vol] 53.4 fL 35.1-43.9 [facility] Erythrocyte distribution width (RBC) [Ratio] 14.1 % 11.6-14.6 [facility] Immature granulocytes/100 WBC (Bld) 0.200 % 0.0-0.9 [facility] Comment on above: IG% - Immature Granu locytes (promyelocytes, myelocytes and metamyelocytes) > 1% indicates that a LEFT SHIFT is Present. MCH (RBC) [Entitic mass] 31.6 pg 27.0-32.0 [facility] Nucleated RBC/100 WBC (Bld) [Ratio] 0 % 0-5 [facility] Laboratory - Microbiology an d Antimicrobial susceptibilityOrdered By: Gogo Browne on 05-25-2023 SARS-CoV-2 (COVID-19) RNA KIKI+probe Ql (Unsp spec) [facility] SARS-CoV-2 (COVID-19) RNA KIKI+probe Ql (Unsp spec) [facility] [Mass/Vol]Or dered By: Raj De La Rosa on 05-25-2023 MCHC (RBC) [Mass/Vol] 30.1 g/dL [facility]/Vol]Or dered By: Victor M Cochran on 05-25-2023 MCHC (RBC) [Mass/Vol] 30.4 g/dL 32-36 [facility] Mucus LM Ql (Urine sed)Order ed By: Raj De La Rosa on 05-25-2023 Mucus Ql (Urine sed) 0 SEEN /hpf [facility] Nitrite Test strip Ql (U)Ord ered By: Raj De La Rosa on 05-25-2023 Nitrite Ql (U) Negative Negative [facility] No Panel InformationOrdered By: Raj De La Rosa on 05-25-2023 Troponin I High Sensitivity 15 pg/mL 3.0-54.0 [facility] Comment on above: Please Note: New Tonya t Units and Gender Specific Reference Ranges. For more information see Policy Stat Procedure [place] High Sensitivity Troponin (TNIH) and attachments. Estimated Creatinine Clearance Calc 25.94 ml/min [facility] Estimated GFR (MDRD) Amer 100 mL/min >60 [facility] Comment on above: GFR Calc Estimated GFR (MDRD) Non-Af Amer 83 mL/min >60 [facility] Comment on above: Non- GFR Calc No Panel InformationOrdered By: Victor M Cochran on 05-25-2023 Estimated GFR (MDRD) Amer 92 mL/min >60 [facility] Comment on above: GFR Calc Estimated GFR (MDRD) Non-Af Amer 76 mL/min >60 [facility] Comment on above: Non- GFR Calc Thyroid Stimulating Hormone (TSH) 5.71 uIU/mL 0.358-3.74 [facility] Vitamin D 25-Hydroxy 59.7 ng/mL [facility] Comment on above: Vitamin D 25(OH) Sta tus Range Deficiency <20 ng/mL (50nmol/L) Insufficiency 20 - 30 ng/mL (50 - 75 nmol/L) Sufficiency 30 - 100 ng/mL (75 - 250 nmol/L) Toxicity >100 ng/mL (>250 nmol/L) Platelets bldOrdered By: Eugenia De La Rosa on 05-25-2023 Platelets (Bld) [#/Vol] 367 10*3/uL 150-450 [facility] Platelets bldOrdered By: Victor M Cochran on 05-25-2023 Platelets (Bld) [#/Vol] 465 10*3/uL 150-450 [facility] Protein Test strip Ql (U)Ord ered By: Raj De La Rosa on 05-25-2023 Protein Ql (U) 15 mg/dl Negative [facility] Respiratory pathogens detect ion panel by molecular detection methodOrdered By: Gogo Browne on 05-25-2023 Respiratory pathogens DNA and RNA panel KIKI+probe (Resp) [facility] Respiratory pathogens DNA and RNA panel KIKI+probe (Resp) [facility] Serum or plasma albumin rohan urement (mass/volume)Ordered By: Raj De La Rosa on 05-25-2023 Albumin [Mass/Vol] 2.6 g/dL 3.2-5.0 [place] Serum or plasma albumin rohan urement (mass/volume)Ordered By: Victor M Cochran on 05-25-2023 Albumin [Mass/Vol] 3.0 g/dL 3.2-5.0 [place] Serum or plasma albumin/glob ulin mass ratioOrdered By: Raj De La Rosa on 05-25-2023 Albumin/Globulin [Mass ratio] 0.6 {ratio} 0.9-2.4 [facility] Serum or plasma albumin/glob ulin mass ratioOrdered By: Victor M Cochran on 05-25-2023 Albumin/Globulin [Mass ratio] 0.6 {ratio} 0.9-2.4 [facility] Serum or plasma calcium rohan urement (mass/volume)Ordered By: Raj De La Rosa on 05-25-2023 Calcium [Mass/Vol] 9.2 mg/dL 8.5-10.1 [place] Serum or plasma calcium rohan urement (mass/volume)Ordered By: Victor M Cochran on 05-25-2023 Calcium [Mass/Vol] 9.2 mg/dL 8.5-10.1 [place] Serum or plasma creatinine m easurement (mass/volume)Ordered By: Raj De La Rosa on 05-25-2023 Creatinine [Mass/Vol] 0.71 mg/dL 0.55-1.02 [facility] Comment on above: The validity of the calculated GFR & GFRAA in patients over 70 years has not been determined. Clinical correlation is essential. Serum or plasma creatinine m easurement (mass/volume)Ordered By: Victor M Cochran on 05-25-2023 Creatinine [Mass/Vol] 0.77 mg/dL 0.55-1.02 [facility] Comment on above: The validity of the calculated GFR & GFRAA in patients over 70 years has not been determined. Clinical correlation is essential. Serum or plasma urea nitroge n measurement (mass/volume)Ordered By: Raj De La Rosa on 05-25-2023 Urea nitrogen [Mass/Vol] 14 mg/dL 12-27 [facility] Serum or plasma urea nitroge n measurement (mass/volume)Ordered By: Victor M Cochran on 05-25-2023 Urea nitrogen [Mass/Vol] 15 mg/dL 12-27 [facility] Serum procalcitonin measurem entOrdered By: Gogo Browne on 05-25-2023 Procalcitonin [Mass/Vol] 0.11 ng/mL 0.00-0.09 [facility] Comment on above: A procalcitonin (PCT ) level above 2.0 ng/mL on the first day of ICU admission is associated with a high risk for progression to severe sepsis and/or septic shock. A PCT level below 0.5 ng/mL on the first day of ICU admission is associated with a low risk for progression to severe and/or septic shock. Note: Concentrations <0.5 ng/mL do not exclude an infection on account of localized infections (without systemic signs) which can be associated with such low concentrations, or a systemic infection in its initial stages (<6 hours). Furthermore, increased procalcitonin can occur without infection. PCT concentrations between 0.5 and 2.0 ng/mL should be interpreted taking into account the patient's history. It is recommended to retest PCT within 6-24 hours if any concentrations <2 ng/mL are obtained. Squamous epithelial cells de tection in urine sediment by light microscopyOrdered By: Raj De La Rosa on 05-25-2023 Epithelial cells.squamous LM Ql (Urine sed) 0-5 SEEN /hpf 5-10 [facility] Thin prep Papanicolaou smear with manual screeningOrdered By: Raj De La Rosa on 05-25-2023 Thin prep Papanicolaou smear with manual screening 23 U/L 15-37 [facility] Thin prep Papanicolaou smear with manual screening 4 5-15 [facility] Thin prep Papanicolaou smear with manual screeningOrdered By: Victor M Cochran on 05-25-2023 Thin prep Papanicolaou smear with manual screening 18 U/L 15-37 [facility] Thin prep Papanicolaou smear with manual screening 6 5-15 [facility] Urine blood detectionOrdered By: Raj De La Rosa on 05-25-2023 RBC Ql (U) 10 /ul Negative [facility] RBC Ql (U) 0 SEEN /hpf 0-5 [facility] Urine clarityOrdered By: Eugenia De La Rosa on 05-25-2023 Clarity (U) Clear Clear [facility] Urine color determinationOrd ered By: Raj De La Rosa on 05-25-2023 Color (U) Yellow Yellow [facility] Urine glucose detectionOrder ed By: Raj De La Rosa on 05-25-2023 Glucose Ql (U) 1000 mg/dl Normal [facility] Urine leukocyte esterase det ection by dipstickOrdered By: Raj De La Rosa on 05-25-2023 Leukocyte esterase Test strip Ql (U) Negative Negative [facility] Urine pHOrdered By: Raj ware on 05-25-2023 pH (U) 7.0 [pH] 5.0 - 8.0 [facility] Urine sediment bacteria coun t by microscopy (number/high power field)Ordered By: Raj De La Rosa on 05-25-2023 Bacteria LM.HPF (Urine sed) [#/Area] RARE /hpf None Seen [facility] Urine specific gravity measu rementOrdered By: Raj De La Rosa on 05-25-2023 Specific gravity (U) [Rel density] 1.015 1.002-1.030 [facility] Urobilinogen Auto test strip Ql (U)Ordered By: Raj De La Rosa on 05-25-2023 Urobilinogen Ql (U) Normal mg/dl Normal [facility] Absolute lymphocyte countOrd ered By: Anuradha Avila on 04-17-2023 Lymphocytes Auto (Unsp spec) [#/Vol] 0.93 10*3/uL 0.83-4.51 [facility] Basophil percentageOrdered B y: Anuradha Avila on 04-17-2023 Basophils/100 WBC (Bld) 0.4 % 0-1 [facility] Bilirubin [Mass/Vol] 0.60 mg/dL 0.20-1.00 [facility] Comment on above: For patients on eltr ombopag therapy, use of Dimension [place] TBIL is not recommended. Chloride [Moles/Vol] 105 mmol/L 98-107 [facility] Eosinophils/100 WBC (Bld) 1.2 % 0-5 [facility] Glucose [Mass/Vol] 149 mg/dL 74-106 [place] Comment on above: Fasting Glucose resu lt greater than or equal to 126 mg/dL suggests DIABETES MELLITUS per A.D.A. criteria. Neutrophils (Bld) [#/Vol] 6.7 10*3/uL 2.0-7.7 [facility] Neutrophils/100 WBC (Bld) 79.6 % 47-70 [facility] Potassium [Moles/Vol] 4.3 mmol/L 3.5-5.1 [facility] Protein [Mass/Vol] 7.5 g/dL 6.4-8.2 [place] Sodium [Moles/Vol] 139 mmol/L 136-145 [place] WBC (Bld) [#/Vol] 8.4 10*3/uL 4.4-11.0 [place] Blood erythrocytes count (nu mber/volume)Ordered By: Anuradha Avila on 04-17-2023 RBC (Bld) [#/Vol] 3.54 10*6/uL 4.2-5.4 [facility] RBC (Bld) [#/Vol] 3.58 10*6/uL 3.77-5.28 [facility] Blood hemoglobin measurement (mass/volume)Ordered By: Anuradha Avila on 04-17-2023 Hemoglobin (Bld) [Mass/Vol] 11.7 g/dL 12.0-15.0 [facility] Blood lymphocytes/100 leukoc ytesOrdered By: Anuradha Avila on 04-17-2023 Lymphocytes/100 WBC (Bld) 11.0 % 19-41 [facility] Blood monocytes/100 leukocyt esOrdered By: Anuradha Avila on 04-17-2023 Monocytes/100 WBC (Bld) 7.4 % 0-10 [facility] Blood platelet mean volumeOr dered By: Anuradha Avila on 04-17-2023 Platelet mean volume (Bld) [Entitic vol] 8.7 fL 6.2-12.0 [facility] Determination of erythrocyte mean corpuscular volume (MCV)Ordered By: Anuradha Avila on 04-17-2023 MCV (RBC) [Entitic vol] 105.9 fL 81-99 [facility] Erythrocyte ukuwics-3-lmukth ate dehydrogenase (enzymatic activity/mass)Ordered By: Anuradha Avila on 04-17-2023 G6PD (RBC) [Catalytic activity/Mass] 384 127-427 [facility] Comment on above: Result Units: U/10E1 2 RBCWhen decreased, G-6-PD, Quant. values are associated withacute hemolytic anemia when deficient individuals areexposed to oxidative stress, such as with certainmedications (e.g., primaquine), infection, or ingestion offava beans. Caution: In patients with acute hemolysis(e.g., abnormally low RBC values), testing for G-6-PD maybe falsely normal because older erythrocytes with a higherenzyme deficiency have been hemolyzed. Young erythrocytesand reticulocytes have normal or near-normal enzymeactivity. Normal values of G-6-PD may be measured forseveral weeks following a hemolytic event.Performed at: [facility] [id number] Director: Valerio Martinez PhD, Phone: [phone] at: [facility] Lab[address] [id number] Director: Dayan Flores MD, Phone: [phone] Hematocrit Auto (Bld) [Volum e fraction]Ordered By: Anuradha Avila on 04-17-2023 Hematocrit (Bld) [Volume fraction] 37.5 % 37-47 [facility] Laboratory - Chemistry and C hemistry - challengeOrdered By: Anuradha Avila on 04-17-2023 ALP [Catalytic activity/Vol] 67 U/L 45-117 [facility] ALT [Catalytic activity/Vol] 16 U/L 13-56 [facility] CO2 [Moles/Vol] 31.0 mmol/L 21.0-32.0 [facility] Globulin (S) [Mass/Vol] 4.1 g/dL 2.2-4.2 [facility] Urea nitrogen/Creatinine [Mass ratio] 14.9 mg/mg 10-20 [facility] Laboratory - Hematology and Cell countsOrdered By: Anuradha Avila on 04-17-2023 Erythrocyte distribution width (RBC) [Entitic vol] 55.9 fL 35.1-43.9 [facility] Erythrocyte distribution width (RBC) [Ratio] 14.2 % 11.6-14.6 [facility] Immature granulocytes/100 WBC (Bld) 0.400 % 0.0-0.9 [facility] Comment on above: IG% - Immature Granu locytes (promyelocytes, myelocytes and metamyelocytes) > 1% indicates that a LEFT SHIFT is Present. MCH (RBC) [Entitic mass] 33.1 pg 27.0-32.0 [facility] Nucleated RBC/100 WBC (Bld) [Ratio] 0 % 0-5 [facility] MCHC Auto (RBC) [Mass/Vol]Or dered By: Anuradha Avila on 04-17-2023 MCHC (RBC) [Mass/Vol] 31.2 g/dL 32-36 [facility] No Panel InformationOrdered By: Anuradha Avila on 04-17-2023 Estimated GFR (MDRD) Amer 80 mL/min >60 [facility] Comment on above: GFR Calc Estimated GFR (MDRD) Non-Af Amer 66 mL/min >60 [facility] Comment on above: Non- GFR Calc Platelets bldOrdered By: Jovita Avila on 04-17-2023 Platelets (Bld) [#/Vol] 465 10*3/uL 150-450 [facility] Serum or plasma albumin rohan urement (mass/volume)Ordered By: Anuradha Avila on 04-17-2023 Albumin [Mass/Vol] 3.4 g/dL 3.2-5.0 [place] Serum or plasma albumin/glob ulin mass ratioOrdered By: Anuradha Avila on 04-17-2023 Albumin/Globulin [Mass ratio] 0.8 {ratio} 0.9-2.4 [facility] Serum or plasma calcium rohan urement (mass/volume)Ordered By: Anuradha Avila on 04-17-2023 Calcium [Mass/Vol] 9.8 mg/dL 8.5-10.1 [place] Serum or plasma creatinine m easurement (mass/volume)Ordered By: Anuradha Avila on 04-17-2023 Creatinine [Mass/Vol] 0.87 mg/dL 0.55-1.02 [facility] Comment on above: The validity of the calculated GFR & GFRAA in patients over 70 years has not been determined. Clinical correlation is essential. Serum or plasma urea nitroge n measurement (mass/volume)Ordered By: Anuradha Avila on 04-17-2023 Urea nitrogen [Mass/Vol] 13 mg/dL 7-18 [facility] Thin prep Papanicolaou smear with manual screeningOrdered By: Anuradha Avila on 04-17-2023 Thin prep Papanicolaou smear with manual screening 16 U/L 15-37 [facility] Thin prep Papanicolaou smear with manual screening 3 5-15 [facility] Basophil percentageOrdered B y: Victor M Cochran on 03-20-2023 Basophil percentage 2.7 mg/dL 2.5-4.9 [facility] Stool gastrointestinal hemog lobin detection by immunologic methodOrdered By: Victor M Cochran on 03-16-2023 Lower GI hemoglobin IA Ql (Stl) [facility] Lower GI hemoglobin IA Ql (Stl) [facility] Absolute lymphocyte countOrd ered By: Victor M Cochran on 03-13-2023 Lymphocytes Auto (Unsp spec) [#/Vol] 1.25 10*3/uL 0.83-4.51 [facility] Basophil percentageOrdered B y: Victor M Cochran on 03-13-2023 Basophil percentage 2.3 mg/dL 2.5-4.9 [facility] Basophils/100 WBC (Bld) 0.2 % 0-1 [facility] Bilirubin [Mass/Vol] 0.40 mg/dL 0.20-1.00 [facility] Comment on above: For patients on eltr ombopag therapy, use of Dimension [place] TBIL is not recommended. Chloride [Moles/Vol] 107 mmol/L 98-107 [facility] Eosinophils/100 WBC (Bld) 1.2 % 0-5 [facility] Glucose [Mass/Vol] 112 mg/dL 74-106 [place] Comment on above: Fasting Glucose resu lt from 100 to 125 mg/dL suggests IMPAIRED HOMEOSTASIS per A.D.A. criteria. Neutrophils (Bld) [#/Vol] 3.2 10*3/uL 2.0-7.7 [facility] Neutrophils/100 WBC (Bld) 62.2 % 47-70 [facility] Potassium [Moles/Vol] 3.5 mmol/L 3.5-5.1 [facility] Protein [Mass/Vol] 7.0 g/dL 6.4-8.2 [place] Sodium [Moles/Vol] 142 mmol/L 136-145 [place] WBC (Bld) [#/Vol] 5.1 10*3/uL 4.4-11.0 [place] Blood erythrocytes count (nu mber/volume)Ordered By: Victor M Cochran on 03-13-2023 RBC (Bld) [#/Vol] 3.64 10*6/uL 4.2-5.4 [facility] Blood hemoglobin measurement (mass/volume)Ordered By: Victor M Cochran on 03-13-2023 Hemoglobin (Bld) [Mass/Vol] 12.2 g/dL 12.0-15.0 [facility] Blood lymphocytes/100 leukoc ytesOrdered By: Victor M Cochran on 03-13-2023 Lymphocytes/100 WBC (Bld) 24.7 % 19-41 [facility] Blood monocytes/100 leukocyt esOrdered By: Victor M Cochran on 10-02-2023 Monocytes/100 WBC (Bld) 11.5 % 0-10 [facility] Blood platelet mean volumeOr dered By: Victor M Cochran on 03-13-2023 Platelet mean volume (Bld) [Entitic vol] 8.4 fL 6.2-12.0 [facility] Culture, urineOrdered By: Fernie Cochran on 03-13-2023 Bacteria identified Cx Nom (U) Culture exhibits no growth. [facility] Bacteria identified Cx Nom (U) Culture exhibits no growth. [facility] Determination of erythrocyte mean corpuscular volume (MCV)Ordered By: Victor M Cochran on 03-13-2023 MCV (RBC) [Entitic vol] 105.5 fL 81-99 [facility] Hematocrit Auto (Bld) [Volum e fraction]Ordered By: Victor M Cochran on 03-13-2023 Hematocrit (Bld) [Volume fraction] 38.4 % 37-47 [facility] Laboratory - Chemistry and C hemistry - challengeOrdered By: Victor M Cochran on 03-13-2023 ALP [Catalytic activity/Vol] 61 U/L 45-117 [facility] ALT [Catalytic activity/Vol] 22 U/L 13-56 [facility] CO2 [Moles/Vol] 30.0 mmol/L 21.0-32.0 [facility] Globulin (S) [Mass/Vol] 3.4 g/dL 2.2-4.2 [facility] Magnesium [Mass/Vol] 2.4 mg/dL 1.6-2.6 [facility] Natriuretic peptide B (Bld) [Mass/Vol] 83.0 pg/mL 0-100 [facility] Urea nitrogen/Creatinine [Mass ratio] 11.3 mg/mg 10-20 [facility] Laboratory - Hematology and Cell countsOrdered By: Victor M Cochran on 03-13-2023 Erythrocyte distribution width (RBC) [Entitic vol] 59.7 fL 35.1-43.9 [facility] Erythrocyte distribution width (RBC) [Ratio] 15.5 % 11.6-14.6 [facility] Immature granulocytes/100 WBC (Bld) 0.200 % 0.0-0.9 [facility] Comment on above: IG% - Immature Granu locytes (promyelocytes, myelocytes and metamyelocytes) > 1% indicates that a LEFT SHIFT is Present. MCH (RBC) [Entitic mass] 33.5 pg 27.0-32.0 [facility] Nucleated RBC/100 WBC (Bld) [Ratio] 0 % 0-5 [facility] MCHC Auto (RBC) [Mass/Vol]Or dered By: Victor M Cochran on 03-13-2023 MCHC (RBC) [Mass/Vol] 31.8 g/dL 32-36 [facility] No Panel InformationOrdered By: Victor M Cochran on 03-13-2023 Estimated GFR (MDRD) Amer 102 mL/min >60 [facility] Comment on above: GFR Calc Estimated GFR (MDRD) Non-Af Amer 84 mL/min >60 [facility] Comment on above: Non- GFR Calc Thyroid Stimulating Hormone (TSH) 3.00 uIU/mL 0.358-3.74 [facility] Platelets bldOrdered By: Victor M Cochran on 03-13-2023 Platelets (Bld) [#/Vol] 283 10*3/uL 150-450 [facility] Serum or plasma albumin rohan urement (mass/volume)Ordered By: Victor M Cochran on 03-13-2023 Albumin [Mass/Vol] 3.6 g/dL 3.2-5.0 [place] Serum or plasma albumin/glob ulin mass ratioOrdered By: Victor M Cochran on 03-13-2023 Albumin/Globulin [Mass ratio] 1.1 {ratio} 0.9-2.4 [facility] Serum or plasma calcium rohan urement (mass/volume)Ordered By: Victor M Cochran on 03-13-2023 Calcium [Mass/Vol] 9.5 mg/dL 8.5-10.1 [place] Serum or plasma creatinine m easurement (mass/volume)Ordered By: Victor M Cochran on 03-13-2023 Creatinine [Mass/Vol] 0.70 mg/dL 0.55-1.02 [facility] Comment on above: The validity of the calculated GFR & GFRAA in patients over 70 years has not been determined. Clinical correlation is essential. Serum or plasma urea nitroge n measurement (mass/volume)Ordered By: Victor M Cochran on 03-13-2023 Urea nitrogen [Mass/Vol] 8 mg/dL 7-18 [facility] Thin prep Papanicolaou smear with manual screeningOrdered By: Victor M Cochran on 03-13-2023 Thin prep Papanicolaou smear with manual screening 20 U/L 15-37 [facility] Thin prep Papanicolaou smear with manual screening 5 5-15 [facility] Absolute lymphocyte countOrd ered By: Anuradha Avila on 03-07-2023 Lymphocytes Auto (Unsp spec) [#/Vol] 1.50 10*3/uL 0.83-4.51 [facility] Basophil percentageOrdered B y: Anuradha Avila on 03-07-2023 Basophils/100 WBC (Bld) 0.4 % 0-1 [facility] Bilirubin [Mass/Vol] 0.40 mg/dL 0.20-1.00 [facility] Comment on above: For patients on eltr ombopag therapy, use of Dimension [place] TBIL is not recommended. Chloride [Moles/Vol] 109 mmol/L 98-107 [facility] Eosinophils/100 WBC (Bld) 1.3 % 0-5 [facility] Glucose [Mass/Vol] 79 mg/dL 74-106 [place] Neutrophils (Bld) [#/Vol] 6.0 10*3/uL 2.0-7.7 [facility] Neutrophils/100 WBC (Bld) 70.9 % 47-70 [facility] Potassium [Moles/Vol] 4.1 mmol/L 3.5-5.1 [facility] Protein [Mass/Vol] 6.9 g/dL 6.4-8.2 [place] Sodium [Moles/Vol] 141 mmol/L 136-145 [place] WBC (Bld) [#/Vol] 8.4 10*3/uL 4.4-11.0 [place] Blood erythrocytes count (nu mber/volume)Ordered By: Anuradha Avila on 03-07-2023 RBC (Bld) [#/Vol] 3.62 10*6/uL 4.2-5.4 [facility] Blood hemoglobin measurement (mass/volume)Ordered By: Anuradha Avila on 09-26-2023 Hemoglobin (Bld) [Mass/Vol] 11.9 g/dL 12.0-15.0 [facility] Blood lymphocytes/100 leukoc ytesOrdered By: Anuradha Avila on 03-07-2023 Lymphocytes/100 WBC (Bld) 17.9 % 19-41 [facility] Blood monocytes/100 leukocyt esOrdered By: Anuradha Avila on 03-07-2023 Monocytes/100 WBC (Bld) 9.1 % 0-10 [facility] Blood platelet mean volumeOr dered By: Anuradha Avila on 03-07-2023 Platelet mean volume (Bld) [Entitic vol] 8.9 fL 6.2-12.0 [facility] Determination of erythrocyte mean corpuscular volume (MCV)Ordered By: Anuradhacharlie Avila on 03-07-2023 MCV (RBC) [Entitic vol] 105.2 fL 81-99 [facility] Hematocrit Auto (Bld) [Volum e fraction]Ordered By: Anuradha Avila on 03-07-2023 Hematocrit (Bld) [Volume fraction] 38.1 % 37-47 [facility] Laboratory - Chemistry and C hemistry - challengeOrdered By: [facility] on 03-07-2023 ALP [Catalytic activity/Vol] 65 U/L 45-117 [facility] ALT [Catalytic activity/Vol] 24 U/L 13-56 [facility] CO2 [Moles/Vol] 29.0 mmol/L 21.0-32.0 [facility] Globulin (S) [Mass/Vol] 3.5 g/dL 2.2-4.2 [facility] Urea nitrogen/Creatinine [Mass ratio] 12.7 mg/mg 10-20 [facility] Laboratory - Hematology and Cell countsOrdered By: [facility] on 03-07-2023 Erythrocyte distribution width (RBC) [Entitic vol] 58.6 fL 35.1-43.9 [facility] Erythrocyte distribution width (RBC) [Ratio] 15.0 % 11.6-14.6 [facility] Immature granulocytes/100 WBC (Bld) 0.400 % 0.0-0.9 [facility] Comment on above: IG% - Immature Granu locytes (promyelocytes, myelocytes and metamyelocytes) > 1% indicates that a LEFT SHIFT is Present. MCH (RBC) [Entitic mass] 32.9 pg 27.0-32.0 [facility] Nucleated RBC/100 WBC (Bld) [Ratio] 0 % 0-5 [facility] MCHC Auto (RBC) [Mass/Vol]Or dered By: Anuradha Avila on 03-07-2023 MCHC (RBC) [Mass/Vol] 31.2 g/dL 32-36 [facility] No Panel InformationOrdered By: Anuradha Avila on 03-07-2023 Estimated GFR (MDRD) Amer 89 mL/min >60 [facility] Comment on above: GFR Calc Estimated GFR (MDRD) Non-Af Amer 74 mL/min >60 [facility] Comment on above: Non- GFR Calc Platelets bldOrdered By: Jovita Avila on 03-07-2023 Platelets (Bld) [#/Vol] 293 10*3/uL 150-450 [facility] Serum or plasma albumin rohan urement (mass/volume)Ordered By: Anuradha Avila on 03-07-2023 Albumin [Mass/Vol] 3.4 g/dL 3.2-5.0 [place] Serum or plasma albumin/glob ulin mass ratioOrdered By: Anuradha Avila on 03-07-2023 Albumin/Globulin [Mass ratio] 1.0 {ratio} 0.9-2.4 [facility] Serum or plasma calcium rohan urement (mass/volume)Ordered By: Anuradha Avila on 03-07-2023 Calcium [Mass/Vol] 9.3 mg/dL 8.5-10.1 [place] Serum or plasma creatinine m easurement (mass/volume)Ordered By: Anuradha Avila on 03-07-2023 Creatinine [Mass/Vol] 0.79 mg/dL 0.55-1.02 [facility] Comment on above: The validity of the calculated GFR & GFRAA in patients over 70 years has not been determined. Clinical correlation is essential. Serum or plasma urea nitroge n measurement (mass/volume)Ordered By: Anuradha Avila on 03-07-2023 Urea nitrogen [Mass/Vol] 10 mg/dL 7-18 [facility] Thin prep Papanicolaou smear with manual screeningOrdered By: Anuradha Avial on 03-07-2023 Thin prep Papanicolaou smear with manual screening 20 U/L 15-37 [facility] Thin prep Papanicolaou smear with manual screening 3 5-15 [facility] Absolute lymphocyte countOrd ered By: Victor M Cochran on 02-23-2023 Lymphocytes Auto (Unsp spec) [#/Vol] 0.79 10*3/uL 0.83-4.51 [facility] Basophil percentageOrdered B y: Victor M Cochran on 02-23-2023 Basophils/100 WBC (Bld) 0.1 % 0-1 [facility] Bilirubin [Mass/Vol] 0.30 mg/dL 0.20-1.00 [facility] Comment on above: For patients on eltr ombopag therapy, use of Dimension [place] TBIL is not recommended. Chloride [Moles/Vol] 106 mmol/L 98-107 [facility] Eosinophils/100 WBC (Bld) 0.1 % 0-5 [facility] Glucose [Mass/Vol] 314 mg/dL 74-106 [place] Comment on above: Glucose result great er than or equal to 200 mg/dLsuggests DIABETES MELLITUS per A.D.A. criteria. Neutrophils (Bld) [#/Vol] 6.7 10*3/uL 2.0-7.7 [facility] Neutrophils/100 WBC (Bld) 82.5 % 47-70 [facility] Potassium [Moles/Vol] 4.5 mmol/L 3.5-5.1 [facility] Protein [Mass/Vol] 7.2 g/dL 6.4-8.2 [place] Sodium [Moles/Vol] 137 mmol/L 136-145 [place] WBC (Bld) [#/Vol] 8.1 10*3/uL 4.4-11.0 [place] Blood erythrocytes count (nu mber/volume)Ordered By: Victor M Cochran on 02-23-2023 RBC (Bld) [#/Vol] 3.95 10*6/uL 4.2-5.4 [facility] Blood hemoglobin measurement (mass/volume)Ordered By: Victor M Dimas on 02-23-2023 Hemoglobin (Bld) [Mass/Vol] 13.0 g/dL 12.0-15.0 [facility] Blood lymphocytes/100 leukoc ytesOrdered By: [facility] Lymphocytes/100 WBC (Bld) 9.8 % 19-41 [facility] Blood monocytes/100 leukocyt esOrdered By: [facility] Monocytes/100 WBC (Bld) 7.1 % 0-10 [facility] Blood platelet mean volumeOr dered By: [facility] on 02-23-2023 Platelet mean volume (Bld) [Entitic vol] 8.8 fL 6.2-12.0 [facility] Determination of erythrocyte mean corpuscular volume (MCV)Or[facility] MCV (RBC) [Entitic vol] 101.3 fL 81-99 [facility] Hematocrit Auto (Bld) [Volum e fraction]Ordered By: [facility] on 02-23-2023 Hematocrit (Bld) [Volume fraction] 40.0 % 37-47 [facility] Laboratory - Chemistry and C hemistry - challengeOrdered By: [facility] 02-23-2023 ALP [Catalytic activity/Vol] 75 U/L 45-117 [facility] ALT [Catalytic activity/Vol] 19 U/L 13-56 [facility] CO2 [Moles/Vol] 28.0 mmol/L 21.0-32.0 [facility] Globulin (S) [Mass/Vol] 3.9 g/dL 2.2-4.2 [facility] Urea nitrogen/Creatinine [Mass ratio] 16.0 mg/mg 10-20 [facility] Laboratory - Hematology and Cell countsOrdered By: [facility] 02-23-2023 Erythrocyte distribution width (RBC) [Entitic vol] 53.7 fL 35.1-43.9 [facility] Erythrocyte distribution width (RBC) [Ratio] 14.4 % 11.6-14.6 [facility] Immature granulocytes/100 WBC (Bld) 0.400 % 0.0-0.9 [facility] Comment on above: IG% - Immature Granu locytes (promyelocytes, myelocytes and metamyelocytes) > 1% indicates that a LEFT SHIFT is Present. MCH (RBC) [Entitic mass] 32.9 pg 27.0-32.0 [facility] Nucleated RBC/100 WBC (Bld) [Ratio] 0 % 0-5 [facility] MCHC Auto (RBC) [Mass/Vol]Or dered By: Victor M Cochran on 02-23-2023 MCHC (RBC) [Mass/Vol] 32.5 g/dL 32-36 [facility] No Panel InformationOrdered By: Victor M Cochran on 02-23-2023 Estimated GFR (MDRD) Amer 64 mL/min >60 [facility] Comment on above: GFR Calc Estimated GFR (MDRD) Non-Af Amer 53 mL/min >60 [facility] Comment on above: Non- GFR Calc Thyroid Stimulating Hormone (TSH) 3.59 uIU/mL 0.358-3.74 [facility] Vitamin D 25-Hydroxy 47.5 ng/mL [facility] Comment on above: Vitamin D 25(OH) Sta tus Range Deficiency <20 ng/mL (50nmol/L) Insufficiency 20 - 30 ng/mL (50 - 75 nmol/L) Sufficiency 30 - 100 ng/mL (75 - 250 nmol/L) Toxicity >100 ng/mL (>250 nmol/L) Platelets bldOrdered By: Victor M Cochran on 02-23-2023 Platelets (Bld) [#/Vol] 347 10*3/uL 150-450 [facility] Serum or plasma albumin rohan urement (mass/volume)Ordered By: Victor M Cohcran on 02-23-2023 Albumin [Mass/Vol] 3.3 g/dL 3.2-5.0 [place] Serum or plasma albumin/glob ulin mass ratioOrdered By: Victor M Cochran on 02-23-2023 Albumin/Globulin [Mass ratio] 0.8 {ratio} 0.9-2.4 [facility] Serum or plasma calcium rohan urement (mass/volume)Ordered By: Victor M Cochran on 02-23-2023 Calcium [Mass/Vol] 9.6 mg/dL 8.5-10.1 [place] Serum or plasma creatinine m easurement (mass/volume)Ordered By: Victor M Cochran on 02-23-2023 Creatinine [Mass/Vol] 1.06 mg/dL 0.55-1.02 [facility] Comment on above: The validity of the calculated GFR & GFRAA in patients over 70 years has not been determined. Clinical correlation is essential. Serum or plasma urea nitroge n measurement (mass/volume)Ordered By: Victor M Cochran on 02-23-2023 Urea nitrogen [Mass/Vol] 17 mg/dL 7-18 [facility] Thin prep Papanicolaou smear with manual screeningOrdered By: Victor M Cochran on 02-23-2023 Thin prep Papanicolaou smear with manual screening 15 U/L 15-37 [facility] Thin prep Papanicolaou smear with manual screening 3 5-15 [facility] Absolute lymphocyte countOrd ered By: Ugo Holliday on 01-30-2023 Lymphocytes Auto (Unsp spec) [#/Vol] 1.01 10*3/uL 0.83-4.51 [facility] Basophil percentageOrdered B y: Ugo Holliday on 01-30-2023 Basophil percentage 0 SEEN /hpf 0-5 [facility] Basophils/100 WBC (Bld) 0.1 % 0-1 [facility] Chloride [Moles/Vol] 99 mmol/L 98-107 [facility] Eosinophils/100 WBC (Bld) 0.2 % 0-5 [facility] Glucose [Mass/Vol] 315 mg/dL 74-106 [place] Comment on above: Glucose result great er than or equal to 200 mg/dLsuggests DIABETES MELLITUS per A.D.A. criteria. Neutrophils (Bld) [#/Vol] 9.7 10*3/uL 2.0-7.7 [facility] Neutrophils/100 WBC (Bld) 84.3 % 47-70 [facility] Potassium [Moles/Vol] 4.5 mmol/L 3.5-5.1 [facility] Sodium [Moles/Vol] 133 mmol/L 136-145 [place] WBC (Bld) [#/Vol] 11.5 10*3/uL 4.4-11.0 [facility] Bilirubin Test strip Ql (U)O rdered By: Ugo Holliday on 01-30-2023 Bilirubin Ql (U) Negative Negative [facility] Blood erythrocytes count (nu mber/volume)Ordered By: Ugo Holliday on 01-30-2023 RBC (Bld) [#/Vol] 4.22 10*6/uL 4.2-5.4 [facility] Blood hemoglobin measurement (mass/volume)Ordered By: Ugo Holliday on 01-30-2023 Hemoglobin (Bld) [Mass/Vol] 14.3 g/dL 12.0-15.0 [facility] Blood lymphocytes/100 leukoc ytesOrdered By: Ugo Hloliday on 01-30-2023 Lymphocytes/100 WBC (Bld) 8.8 % 19-41 [facility] Blood monocytes/100 leukocyt esOrdered By: Ugo Holliday on 01-30-2023 Monocytes/100 WBC (Bld) 6.3 % 0-10 [facility] Blood platelet mean volumeOr dered By: Ugo Holliday on 01-30-2023 Platelet mean volume (Bld) [Entitic vol] 8.4 fL 6.2-12.0 [facility] Determination of erythrocyte mean corpuscular volume (MCV)Ordered By: Ugo Holliday on 01-30-2023 MCV (RBC) [Entitic vol] 97.4 fL 81-99 [facility] Hematocrit Auto (Bld) [Volum e fraction]Ordered By: Ugo Holliday on 01-30-2023 Hematocrit (Bld) [Volume fraction] 41.1 % 37-47 [facility] Ketones Test strip Ql (U)Ord ered By: Ugo Holliday on 01-30-2023 Ketones Ql (U) 50 mg/dl Negative [facility] Laboratory - Chemistry and C hemistry - challengeOrdered By: Ugo Holliday on 01-30-2023 CO2 [Moles/Vol] 28.0 mmol/L 21.0-32.0 [facility] Urea nitrogen/Creatinine [Mass ratio] 18.1 mg/mg 10-20 [facility] Laboratory - Hematology and Cell countsOrdered By: Ugo Holliday on 01-30-2023 Erythrocyte distribution width (RBC) [Entitic vol] 49.0 fL 35.1-43.9 [facility] Erythrocyte distribution width (RBC) [Ratio] 13.7 % 11.6-14.6 [facility] Immature granulocytes/100 WBC (Bld) 0.300 % 0.0-0.9 [facility] Comment on above: IG% - Immature Granu locytes (promyelocytes, myelocytes and metamyelocytes) > 1% indicates that a LEFT SHIFT is Present. MCH (RBC) [Entitic mass] 33.9 pg 27.0-32.0 [facility] Nucleated RBC/100 WBC (Bld) [Ratio] 0 % 0-5 [facility] MCHC Auto (RBC) [Mass/Vol]Or dered By: Ugo Holliday on 01-30-2023 MCHC (RBC) [Mass/Vol] 34.8 g/dL 32-36 [facility] Mucus LM Ql (Urine sed)Order ed By: Ugo Holliday on 01-30-2023 Mucus Ql (Urine sed) 0 SEEN /hpf [facility] Nitrite Test strip Ql (U)Ord ered By: Ugo Holliday on 01-30-2023 Nitrite Ql (U) Negative Negative [facility] No Panel InformationOrdered By: Ugo Holliday on 01-30-2023 Estimated GFR (MDRD) Amer 69 mL/min >60 [facility] Comment on above: GFR Calc Estimated GFR (MDRD) Non-Af Amer 57 mL/min >60 [facility] Comment on above: Non- GFR Calc Platelets bldOrdered By: Dunia Holliday on 01-30-2023 Platelets (Bld) [#/Vol] 397 10*3/uL 150-450 [facility] Protein Test strip Ql (U)Ord ered By: Ugo Holliday on 01-30-2023 Protein Ql (U) 100 mg/dl Negative [facility] Serum or plasma calcium rohan urement (mass/volume)Ordered By: Ugo Holliday on 01-30-2023 Calcium [Mass/Vol] 10.0 mg/dL 8.5-10.1 [place] Serum or plasma creatinine m easurement (mass/volume)Ordered By: Ugo Holliday on 01-30-2023 Creatinine [Mass/Vol] 0.99 mg/dL 0.55-1.02 [facility] Comment on above: The validity of the calculated GFR & GFRAA in patients over 70 years has not been determined. Clinical correlation is essential. Serum or plasma urea nitroge n measurement (mass/volume)Ordered By: Ugo Holliday on 01-30-2023 Urea nitrogen [Mass/Vol] 18 mg/dL 7-18 [facility] Squamous epithelial cells de tection in urine sediment by light microscopyOrdered By: Ugo Holliday on 01-30-2023 Epithelial cells.squamous LM Ql (Urine sed) 0 SEEN /hpf 5-10 [facility] Thin prep Papanicolaou smear with manual screeningOrdered By: Ugo Holliday on 01-30-2023 Thin prep Papanicolaou smear with manual screening 6 5-15 [facility] Urine blood detectionOrdered By: Ugo Holliday on 01-30-2023 RBC Ql (U) 150 /ul Negative [facility] RBC Ql (U) 10-25 SEEN /hpf 0-5 [facility] Urine clarityOrdered By: Dunia Holliday on 01-30-2023 Clarity (U) Sl. Cloudy Clear [facility] Urine color determinationOrd ered By: Ugo Holliday on 01-30-2023 Color (U) Yellow Yellow [facility] Urine glucose detectionOrder ed By: Ugo Holliday on 01-30-2023 Glucose Ql (U) 1000 mg/dl Normal [facility] Urine leukocyte esterase det ection by dipstickOrdered By: Ugo Holliday on 01-30-2023 Leukocyte esterase Test strip Ql (U) Negative Negative [facility] Urine pHOrdered By: Ugo calderon on 01-30-2023 pH (U) 5.0 [pH] 5.0 - 8.0 [facility] Urine sediment bacteria coun t by microscopy (number/high power field)Ordered By: Ugo Holliday on 01-30-2023 Bacteria LM.HPF (Urine sed) [#/Area] 0 /[HPF] None Seen [facility] Urine specific gravity measu rementOrdered By: Ugo Holliday on 01-30-2023 Specific gravity (U) [Rel density] 1.025 1.002-1.030 [facility] Urobilinogen Auto test strip Ql (U)Ordered By: Ugo Holliday on 01-30-2023 Urobilinogen Ql (U) Normal mg/dl Normal [facility] Absolute lymphocyte countOrd ered By: Walker Christiansen on 01-19-2023 Lymphocytes Auto (Unsp spec) [#/Vol] 1.43 10*3/uL 0.83-4.51 [facility] Basophil percentageOrdered B y: Walker Christiansen on 01-19-2023 Basophil percentage 0 SEEN /hpf 0-5 [facility] Basophils/100 WBC (Bld) 0.3 % 0-1 [facility] Bilirubin [Mass/Vol] 0.70 mg/dL 0.20-1.00 [facility] Comment on above: For patients on eltr ombopag therapy, use of [employer] [place] TBIL is not recommended. Chloride [Moles/Vol] 101 mmol/L 98-107 [facility] Eosinophils/100 WBC (Bld) 2.5 % 0-5 [facility] Glucose [Mass/Vol] 182 mg/dL 74-106 [place] Comment on above: Fasting Glucose resu lt greater than or equal to 126 mg/dL suggests DIABETES MELLITUS per A.D.A. criteria. Neutrophils (Bld) [#/Vol] 4.9 10*3/uL 2.0-7.7 [facility] Neutrophils/100 WBC (Bld) 68.4 % 47-70 [facility] Potassium [Moles/Vol] 4.8 mmol/L 3.5-5.1 [facility] Comment on above: Moderate Hemolysis, Result may be falsely increased. Protein [Mass/Vol] 7.7 g/dL 6.4-8.2 [place] Sodium [Moles/Vol] 133 mmol/L 136-145 [place] WBC (Bld) [#/Vol] 7.2 10*3/uL 4.4-11.0 [place] Bilirubin Test strip Ql (U)O rdered By: Walker Christiansen on 01-19-2023 Bilirubin Ql (U) Negative Negative [facility] Blood erythrocytes count (nu mber/volume)Ordered By: Walker Christiansen on 01-19-2023 RBC (Bld) [#/Vol] 3.85 10*6/uL 4.2-5.4 [facility] Blood hemoglobin measurement (mass/volume)Ordered By: Walker Christiansen on 01-19-2023 Hemoglobin (Bld) [Mass/Vol] 12.4 g/dL 12.0-15.0 [facility] Blood lymphocytes/100 leukoc ytesOrdered By: Walker Christiansen on 01-19-2023 Lymphocytes/100 WBC (Bld) 19.9 % 19-41 [facility] Blood monocytes/100 leukocyt esOrdered By: Walker Christiansen on 01-19-2023 Monocytes/100 WBC (Bld) 8.5 % 0-10 [facility] Blood platelet mean volumeOr dered By: Walker Christiansen on 01-19-2023 Platelet mean volume (Bld) [Entitic vol] 8.8 fL 6.2-12.0 [facility] Determination of erythrocyte mean corpuscular volume (MCV)Ordered By: Walker Christiansen on 01-19-2023 MCV (RBC) [Entitic vol] 100.3 fL 81-99 [facility] Hematocrit Auto (Bld) [Volum e fraction]Ordered By: Walker Christiansen on 01-19-2023 Hematocrit (Bld) [Volume fraction] 38.6 % 37-47 [facility] Ketones Test strip Ql (U)Ord ered By: Walker Christiansen on 01-19-2023 Ketones Ql (U) Negative Negative [facility] Laboratory - Chemistry and C hemistry - challengeOrdered By: Walker Christiansen on 01-19-2023 ALP [Catalytic activity/Vol] 82 U/L 45-117 [facility] ALT [Catalytic activity/Vol] 20 U/L 13-56 [facility] CO2 [Moles/Vol] 29.0 mmol/L 21.0-32.0 [facility] Globulin (S) [Mass/Vol] 4.3 g/dL 2.2-4.2 [facility] Lipase [Catalytic activity/Vol] 31 U/L 13-75 [facility] Comment on above: Please note:LIPASE r evised reference range effective 22. New Lipase methodology. Expected to produce lower values than the previous assay method. NEW Reference Range: 13 - 75 U/L Urea nitrogen/Creatinine [Mass ratio] 11.5 mg/mg 10-20 [facility] Laboratory - Hematology and Cell countsOrdered By: Walker Christiansen on 01-19-2023 Erythrocyte distribution width (RBC) [Entitic vol] 51.6 fL 35.1-43.9 [facility] Erythrocyte distribution width (RBC) [Ratio] 14.3 % 11.6-14.6 [facility] Immature granulocytes/100 WBC (Bld) 0.400 % 0.0-0.9 [facility] Comment on above: IG% - Immature Granu locytes (promyelocytes, myelocytes and metamyelocytes) > 1% indicates that a LEFT SHIFT is Present. MCH (RBC) [Entitic mass] 32.2 pg 27.0-32.0 [facility] Nucleated RBC/100 WBC (Bld) [Ratio] 0 % 0-5 [facility] MCHC Auto (RBC) [Mass/Vol]Or dered By: Walker Christiansen on 01-19-2023 MCHC (RBC) [Mass/Vol] 32.1 g/dL 32-36 [facility] Mucus LM Ql (Urine sed)Order ed By: Walker Christiansen on 01-19-2023 Mucus Ql (Urine sed) 0 SEEN /hpf [facility] Nitrite Test strip Ql (U)Ord ered By: Walker Christiansen on 01-19-2023 Nitrite Ql (U) Negative Negative [facility] No Panel InformationOrdered By: Walker Christiansen on 01-19-2023 Estimated GFR (MDRD) Amer 72 mL/min >60 [facility] Comment on above: GFR Calc Estimated GFR (MDRD) Non-Af Amer 59 mL/min >60 [facility] Comment on above: Non- GFR Calc Platelets bldOrdered By: Rex Christiansen on 01-19-2023 Platelets (Bld) [#/Vol] 346 10*3/uL 150-450 [facility] Protein Test strip Ql (U)Ord ered By: Walker Christiansen on 01-19-2023 Protein Ql (U) 15 mg/dl Negative [facility] Serum or plasma albumin rohan urement (mass/volume)Ordered By: Walker Christiansen on 01-19-2023 Albumin [Mass/Vol] 3.4 g/dL 3.2-5.0 [place] Serum or plasma albumin/glob ulin mass ratioOrdered By: Walker Christiansen on 01-19-2023 Albumin/Globulin [Mass ratio] 0.8 {ratio} 0.9-2.4 [facility] Serum or plasma calcium rohan urement (mass/volume)Ordered By: Walker Christiansen on 01-19-2023 Calcium [Mass/Vol] 9.9 mg/dL 8.5-10.1 [place] Serum or plasma creatinine m easurement (mass/volume)Ordered By: Walker Christiansen on 01-19-2023 Creatinine [Mass/Vol] 0.96 mg/dL 0.55-1.02 [facility] Comment on above: The validity of the calculated GFR & GFRAA in patients over 70 years has not been determined. Clinical correlation is essential. Serum or plasma urea nitroge n measurement (mass/volume)Ordered By: Walker Christiansen on 01-19-2023 Urea nitrogen [Mass/Vol] 11 mg/dL 7-18 [facility] Squamous epithelial cells de tection in urine sediment by light microscopyOrdered By: Walker Christiansen on 01-19-2023 Epithelial cells.squamous LM Ql (Urine sed) 0 SEEN /hpf 5-10 [facility] Thin prep Papanicolaou smear with manual screeningOrdered By: Walker Christiansen on 01-19-2023 Thin prep Papanicolaou smear with manual screening 27 U/L 15-37 [facility] Comment on above: Moderate Hemolysis, Result may be falsely increased. Thin prep Papanicolaou smear with manual screening 3 5-15 [facility] Urine blood detectionOrdered By: Walker Christiansen on 01-19-2023 RBC Ql (U) 25 /ul Negative [facility] RBC Ql (U) 0-5 SEEN /hpf 0-5 [facility] Urine clarityOrdered By: Rex Christiansen on 01-19-2023 Clarity (U) Clear Clear [facility] Urine color determinationOrd ered By: Walker Christiansen on 01-19-2023 Color (U) Yellow Yellow [facility] Urine glucose detectionOrder ed By: Walker Christiansen on 01-19-2023 Glucose Ql (U) Normal mg/dl Normal [facility] Urine leukocyte esterase det ection by dipstickOrdered By: Walker Christiansen on 01-19-2023 Leukocyte esterase Test strip Ql (U) Negative Negative [facility] Urine pHOrdered By: Walker davis on 01-19-2023 pH (U) 7.0 [pH] 5.0 - 8.0 [facility] Urine sediment bacteria coun t by microscopy (number/high power field)Ordered By: Walker Christiansen on 01-19-2023 Bacteria LM.HPF (Urine sed) [#/Area] 0 /[HPF] None Seen [facility] Urine specific gravity measu rementOrdered By: Walker Christiansen on 01-19-2023 Specific gravity (U) [Rel density] 1.010 1.002-1.030 [facility] Urobilinogen Auto test strip Ql (U)Ordered By: Walker Christiansen on 01-19-2023 Urobilinogen Ql (U) Normal mg/dl Normal [facility] Absolute lymphocyte countOrd ered By: Anuradha Avila on 12-12-2022 Lymphocytes Auto (Unsp spec) [#/Vol] 1.37 10*3/uL 0.83-4.51 [facility] Basophil percentageOrdered B y: Anuradha Avila on 12-12-2022 Basophils/100 WBC (Bld) 0.3 % 0-1 [facility] Bilirubin [Mass/Vol] 0.40 mg/dL 0.20-1.00 [facility] Comment on above: For patients on eltr ombopag therapy, use of Dimension [place] TBIL is not recommended. Chloride [Moles/Vol] 107 mmol/L 98-107 [facility] Eosinophils/100 WBC (Bld) 2.6 % 0-5 [facility] Glucose [Mass/Vol] 127 mg/dL 74-106 [place] Comment on above: Fasting Glucose resu lt greater than or equal to 126 mg/dL suggests DIABETES MELLITUS per A.D.A. criteria. Neutrophils (Bld) [#/Vol] 4.8 10*3/uL 2.0-7.7 [facility] Neutrophils/100 WBC (Bld) 67.6 % 47-70 [facility] Potassium [Moles/Vol] 4.2 mmol/L 3.5-5.1 [facility] Protein [Mass/Vol] 7.9 g/dL 6.4-8.2 [place] Sodium [Moles/Vol] 138 mmol/L 136-145 [place] WBC (Bld) [#/Vol] 7.0 10*3/uL 4.4-11.0 [place] Blood erythrocytes count (nu mber/volume)Ordered By: Anuradha Avila on 12-12-2022 RBC (Bld) [#/Vol] 3.99 10*6/uL 4.2-5.4 [facility] Blood hemoglobin measurement (mass/volume)Ordered By: Anuradha Avila on 12-12-2022 Hemoglobin (Bld) [Mass/Vol] 12.9 g/dL 12.0-15.0 [facility] Blood lymphocytes/100 leukoc ytesOrdered By: Anuradha Avila on 12-12-2022 Lymphocytes/100 WBC (Bld) 19.5 % 19-41 [facility] Blood monocytes/100 leukocyt esOrdered By: Anuradha Avila on 12-12-2022 Monocytes/100 WBC (Bld) 9.7 % 0-10 [facility] Blood platelet mean volumeOr dered By: Anuradha Avila on 12-12-2022 Platelet mean volume (Bld) [Entitic vol] 8.9 fL 6.2-12.0 [facility] Determination of erythrocyte mean corpuscular volume (MCV)Ordered By: Anuradha Avila on 12-12-2022 MCV (RBC) [Entitic vol] 102.0 fL 81-99 [facility] Hematocrit Auto (Bld) [Volum e fraction]Ordered By: Anuradha Avila on 12-12-2022 Hematocrit (Bld) [Volume fraction] 40.7 % 37-47 [facility] Laboratory - Chemistry and C hemistry - challengeOrdered By: [facility] on 12-12-2022 ALP [Catalytic activity/Vol] 83 U/L 45-117 [facility] ALT [Catalytic activity/Vol] 22 U/L 13-56 [facility] CO2 [Moles/Vol] 27.0 mmol/L 21.0-32.0 [facility] Globulin (S) [Mass/Vol] 4.3 g/dL 2.2-4.2 [facility] Urea nitrogen/Creatinine [Mass ratio] 10.7 mg/mg 10-20 [facility] Laboratory - Hematology and Cell countsOrdered By: Anuradha Avila on 12-12-2022 Erythrocyte distribution width (RBC) [Entitic vol] 53.7 fL 35.1-43.9 [facility] Erythrocyte distribution width (RBC) [Ratio] 14.4 % 11.6-14.6 [facility] Immature granulocytes/100 WBC (Bld) 0.300 % 0.0-0.9 [facility] Comment on above: IG% - Immature Granu locytes (promyelocytes, myelocytes and metamyelocytes) > 1% indicates that a LEFT SHIFT is Present. MCH (RBC) [Entitic mass] 32.3 pg 27.0-32.0 [facility] Nucleated RBC/100 WBC (Bld) [Ratio] 0 % 0-5 [facility] MCHC Auto (RBC) [Mass/Vol]Or dered By: Anuradha Avila on 12-12-2022 MCHC (RBC) [Mass/Vol] 31.7 g/dL 32-36 [facility] No Panel InformationOrdered By: Anuradha Avila on 12-12-2022 Estimated GFR (MDRD) Amer 74 mL/min >60 [facility] Comment on above: GFR Calc Estimated GFR (MDRD) Non-Af Amer 61 mL/min >60 [facility] Comment on above: Non- GFR Calc Platelets bldOrdered By: Jovita Avila on 12-12-2022 Platelets (Bld) [#/Vol] 312 10*3/uL 150-450 [facility] Serum or plasma albumin rohan urement (mass/volume)Ordered By: Anuradha Aivla on 12-12-2022 Albumin [Mass/Vol] 3.6 g/dL 3.2-5.0 [place] Serum or plasma albumin/glob ulin mass ratioOrdered By: Anuradha Avila on 12-12-2022 Albumin/Globulin [Mass ratio] 0.8 {ratio} 0.9-2.4 [facility] Serum or plasma calcium rohan urement (mass/volume)Ordered By: Anuradha Avila on 12-12-2022 Calcium [Mass/Vol] 9.6 mg/dL 8.5-10.1 [place] Serum or plasma creatinine m easurement (mass/volume)Ordered By: Anuradha Avila on 12-12-2022 Creatinine [Mass/Vol] 0.93 mg/dL 0.55-1.02 [facility] Comment on above: The validity of the calculated GFR & GFRAA in patients over 70 years has not been determined. Clinical correlation is essential. Serum or plasma urea nitroge n measurement (mass/volume)Ordered By: Anuradha Avila on 12-12-2022 Urea nitrogen [Mass/Vol] 10 mg/dL 7-18 [facility] Thin prep Papanicolaou smear with manual screeningOrdered By: Anuradha Avila on 12-12-2022 Thin prep Papanicolaou smear with manual screening 22 U/L 15-37 [facility] Thin prep Papanicolaou smear with manual screening 4 5-15 [facility] Absolute lymphocyte countOrd ered By: Dr. Avila on 09-19-2022 Lymphocytes Auto (Unsp spec) [#/Vol] 1.30 10*3/uL 0.83-4.51 [facility] Basophil percentageOrdered B y: Dr. Avila on 09-19-2022 Basophils/100 WBC (Bld) 0.5 % 0-1 [facility] Bilirubin [Mass/Vol] 0.50 mg/dL 0.20-1.00 [facility] Comment on above: For patients on eltr ombopag therapy, use of Dimension [place] TBIL is not recommended. Chloride [Moles/Vol] 104 mmol/L 98-107 [facility] Eosinophils/100 WBC (Bld) 1.7 % 0-5 [facility] Glucose [Mass/Vol] 115 mg/dL 74-106 [place] Comment on above: Fasting Glucose resu lt from 100 to 125 mg/dL suggests IMPAIRED HOMEOSTASIS per A.D.A. criteria. Neutrophils (Bld) [#/Vol] 4.5 10*3/uL 2.0-7.7 [facility] Neutrophils/100 WBC (Bld) 69.6 % 47-70 [facility] Potassium [Moles/Vol] 3.8 mmol/L 3.5-5.1 [facility] Protein [Mass/Vol] 8.1 g/dL 6.4-8.2 [place] Sodium [Moles/Vol] 137 mmol/L 136-145 [place] WBC (Bld) [#/Vol] 6.4 10*3/uL 4.4-11.0 [place] Blood erythrocytes count (nu mber/volume)Ordered By: Dr. Avila on 09-19-2022 RBC (Bld) [#/Vol] 4.09 10*6/uL 4.2-5.4 [facility] Blood hemoglobin measurement (mass/volume)Ordered By: Dr. Avila on 09-19-2022 Hemoglobin (Bld) [Mass/Vol] 13.3 g/dL 12.0-15.0 [facility] Blood lymphocytes/100 leukoc ytesOrdered By: Dr. Avila on 09-19-2022 Lymphocytes/100 WBC (Bld) 20.3 % 19-41 [facility] Blood monocytes/100 leukocyt esOrdered By: Dr. Avila on 09-19-2022 Monocytes/100 WBC (Bld) 7.7 % 0-10 [facility] Blood platelet mean volumeOr dered By: Dr. Avila on 09-19-2022 Platelet mean volume (Bld) [Entitic vol] 8.7 fL 6.2-12.0 [facility] Determination of erythrocyte mean corpuscular volume (MCV)Ordered By: Dr. Avila on 09-19-2022 MCV (RBC) [Entitic vol] 101.0 fL 81-99 [facility] Hematocrit Auto (Bld) [Volum e fraction]Ordered By: Dr. Avila on 09-19-2022 Hematocrit (Bld) [Volume fraction] 41.3 % 37-47 [facility] Laboratory - Chemistry and C hemistry - challengeOrdered By: Dr. Avila on 09-19-2022 ALP [Catalytic activity/Vol] 92 U/L 45-117 [facility] ALT [Catalytic activity/Vol] 23 U/L 13-56 [facility] CO2 [Moles/Vol] 30.0 mmol/L 21.0-32.0 [facility] Globulin (S) [Mass/Vol] 4.4 g/dL 2.2-4.2 [facility] Urea nitrogen/Creatinine [Mass ratio] 13.7 mg/mg 10-20 [facility] Laboratory - Hematology and Cell countsOrdered By: Dr. Avila on 09-19-2022 Erythrocyte distribution width (RBC) [Entitic vol] 50.7 fL 35.1-43.9 [facility] Erythrocyte distribution width (RBC) [Ratio] 13.8 % 11.6-14.6 [facility] Immature granulocytes/100 WBC (Bld) 0.200 % 0.0-0.9 [facility] Comment on above: IG% - Immature Granu locytes (promyelocytes, myelocytes and metamyelocytes) > 1% indicates that a LEFT SHIFT is Present. MCH (RBC) [Entitic mass] 32.5 pg 27.0-32.0 [facility] Nucleated RBC/100 WBC (Bld) [Ratio] 0 % 0-5 [facility] MCHC Auto (RBC) [Mass/Vol]Or dered By: Dr. Avila on 09-19-2022 MCHC (RBC) [Mass/Vol] 32.2 g/dL 32-36 [facility] No Panel InformationOrdered By: Dr. Avila on 09-19-2022 Estimated GFR (MDRD) Amer 67 mL/min >60 [facility] Comment on above: GFR Calc Estimated GFR (MDRD) Non-Af Amer 55 mL/min >60 [facility] Comment on above: Non- GFR Calc Platelets bldOrdered By: Dr. Avila on 09-19-2022 Platelets (Bld) [#/Vol] 347 10*3/uL 150-450 [facility] Serum or plasma albumin rohan urement (mass/volume)Ordered By: Dr. Avila on 09-19-2022 Albumin [Mass/Vol] 3.7 g/dL 3.2-5.0 [place] Serum or plasma albumin/glob ulin mass ratioOrdered By: Dr. Avila on 09-19-2022 Albumin/Globulin [Mass ratio] 0.8 {ratio} 0.9-2.4 [facility] Serum or plasma calcium rohan urement (mass/volume)Ordered By: Dr. Avila on 09-19-2022 Calcium [Mass/Vol] 9.6 mg/dL 8.5-10.1 [place] Serum or plasma creatinine m easurement (mass/volume)Ordered By: Dr. Avila on 09-19-2022 Creatinine [Mass/Vol] 1.02 mg/dL 0.55-1.02 [facility] Comment on above: The validity of the calculated GFR & GFRAA in patients over 70 years has not been determined. Clinical correlation is essential. Serum or plasma urea nitroge n measurement (mass/volume)Ordered By: Dr. Avila on 09-19-2022 Urea nitrogen [Mass/Vol] 14 mg/dL 7-18 [facility] Thin prep Papanicolaou smear with manual screeningOrdered By: Dr. Avila on 09-19-2022 Thin prep Papanicolaou smear with manual screening 24 U/L 15-37 [facility] Thin prep Papanicolaou smear with manual screening 3 5-15 [facility] Absolute lymphocyte countOrd ered By: Dr. Avila on 06-27-2022 Lymphocytes Auto (Unsp spec) [#/Vol] 1.33 10*3/uL 0.83-4.51 [facility] Basophil percentageOrdered B y: Dr. Avila on 06-27-2022 Basophils/100 WBC (Bld) 0.6 % 0-1 [facility] Bilirubin [Mass/Vol] 0.60 mg/dL 0.20-1.00 [facility] Comment on above: For patients on eltr ombopag therapy, use of [employer] [place] TBIL is not recommended. Chloride [Moles/Vol] 105 mmol/L 98-107 [facility] Eosinophils/100 WBC (Bld) 2.2 % 0-5 [facility] Glucose [Mass/Vol] 126 mg/dL 74-106 [place] Comment on above: Fasting Glucose resu lt greater than or equal to 126 mg/dL suggests DIABETES MELLITUS per A.D.A. criteria. Neutrophils (Bld) [#/Vol] 3.4 10*3/uL 2.0-7.7 [facility] Neutrophils/100 WBC (Bld) 63.6 % 47-70 [facility] Potassium [Moles/Vol] 4.8 mmol/L 3.5-5.1 [facility] Comment on above: Slight Hemolysis, Re sult may be falsely increased. Protein [Mass/Vol] 8.3 g/dL 6.4-8.2 [place] Sodium [Moles/Vol] 140 mmol/L 136-145 [place] WBC (Bld) [#/Vol] 5.4 10*3/uL 4.4-11.0 [place] Blood erythrocytes count (nu mber/volume)Ordered By: Dr. Avila on 06-27-2022 RBC (Bld) [#/Vol] 4.30 10*6/uL 4.2-5.4 [facility] Blood hemoglobin measurement (mass/volume)Ordered By: Dr. Avila on 06-27-2022 Hemoglobin (Bld) [Mass/Vol] 13.8 g/dL 12.0-15.0 [facility] Blood lymphocytes/100 leukoc ytesOrdered By: Dr. Avila on 06-27-2022 Lymphocytes/100 WBC (Bld) 24.8 % 19-41 [facility] Blood monocytes/100 leukocyt esOrdered By: Dr. Avila on 06-27-2022 Monocytes/100 WBC (Bld) 8.6 % 0-10 [facility] Blood platelet mean volumeOr dered By: Dr. Avila on 06-27-2022 Platelet mean volume (Bld) [Entitic vol] 8.6 fL 6.2-12.0 [facility] Determination of erythrocyte mean corpuscular volume (MCV)Ordered By: Dr. Avila on 06-27-2022 MCV (RBC) [Entitic vol] 100.9 fL 81-99 [facility] Hematocrit Auto (Bld) [Volum e fraction]Ordered By: Dr. Avila on 06-27-2022 Hematocrit (Bld) [Volume fraction] 43.4 % 37-47 [facility] Laboratory - Chemistry and C hemistry - challengeOrdered By: Dr. Avila on 06-27-2022 ALP [Catalytic activity/Vol] 87 U/L 45-117 [facility] ALT [Catalytic activity/Vol] 19 U/L 13-56 [facility] CO2 [Moles/Vol] 30.0 mmol/L 21.0-32.0 [facility] Globulin (S) [Mass/Vol] 4.3 g/dL 2.2-4.2 [facility] Urea nitrogen/Creatinine [Mass ratio] 14.1 mg/mg 10-20 [facility] Laboratory - Hematology and Cell countsOrdered By: Dr. Avila on 06-27-2022 Erythrocyte distribution width (RBC) [Entitic vol] 52.5 fL 35.1-43.9 [facility] Erythrocyte distribution width (RBC) [Ratio] 14.4 % 11.6-14.6 [facility] Immature granulocytes/100 WBC (Bld) 0.200 % 0.0-0.9 [facility] Comment on above: IG% - Immature Granu locytes (promyelocytes, myelocytes and metamyelocytes) > 1% indicates that a LEFT SHIFT is Present. MCH (RBC) [Entitic mass] 32.1 pg 27.0-32.0 [facility] Nucleated RBC/100 WBC (Bld) [Ratio] 0 % 0-5 [facility] MCHC Auto (RBC) [Mass/Vol]Or dered By: Dr. Avila on 06-27-2022 MCHC (RBC) [Mass/Vol] 31.8 g/dL 32-36 [facility] No Panel InformationOrdered By: Dr. Avila on 06-27-2022 Estimated GFR (MDRD) Amer 69 mL/min >60 [facility] Comment on above: GFR Calc Estimated GFR (MDRD) Non-Af Amer 57 mL/min >60 [facility] Comment on above: Non- GFR Calc Platelets bldOrdered By: Dr. Avila on 06-27-2022 Platelets (Bld) [#/Vol] 345 10*3/uL 150-450 [facility] Serum or plasma albumin rohan urement (mass/volume)Ordered By: Dr. Avila on 06-27-2022 Albumin [Mass/Vol] 4.0 g/dL 3.2-5.0 [place] Serum or plasma albumin/glob ulin mass ratioOrdered By: Dr. Avila on 06-27-2022 Albumin/Globulin [Mass ratio] 0.9 {ratio} 0.9-2.4 [facility] Serum or plasma calcium rohan urement (mass/volume)Ordered By: Dr. Avila on 06-27-2022 Calcium [Mass/Vol] 10.0 mg/dL 8.5-10.1 [place] Serum or plasma creatinine m easurement (mass/volume)Ordered By: Dr. Avila on 06-27-2022 Creatinine [Mass/Vol] 0.99 mg/dL 0.55-1.02 [facility] Comment on above: The validity of the calculated GFR & GFRAA in patients over 70 years has not been determined. Clinical correlation is essential. Serum or plasma urea nitroge n measurement (mass/volume)Ordered By: Dr. Avila on 06-27-2022 Urea nitrogen [Mass/Vol] 14 mg/dL 7-18 [facility] Thin prep Papanicolaou smear with manual screeningOrdered By: Dr. Avila on 06-27-2022 Thin prep Papanicolaou smear with manual screening 25 U/L 15-37 [facility] Comment on above: Slight Hemolysis, Re sult may be falsely increased. Thin prep Papanicolaou smear with manual screening 5 5-15 [facility] Absolute lymphocyte countOrd ered By: Dr. Avila on 03-28-2022 Lymphocytes Auto (Unsp spec) [#/Vol] 1.35 10*3/uL 0.83-4.51 [facility] Basophil percentageOrdered B y: Dr. Avila on 03-28-2022 Basophils/100 WBC (Bld) 0.4 % 0-1 [facility] Bilirubin [Mass/Vol] 0.60 mg/dL 0.20-1.00 [facility] Comment on above: For patients on eltr ombopag therapy, use of [employer] [place] TBIL is not recommended. Chloride [Moles/Vol] 101 mmol/L 98-107 [facility] Eosinophils/100 WBC (Bld) 2.3 % 0-5 [facility] Glucose [Mass/Vol] 126 mg/dL 74-106 [facility] Comment on above: Fasting Glucose resu lt greater than or equal to 126 mg/dL suggests DIABETES MELLITUS per A.D.A. criteria. Neutrophils (Bld) [#/Vol] 6.0 10*3/uL 2.0-7.7 [facility] Neutrophils/100 WBC (Bld) 74.6 % 47-70 [facility] Potassium [Moles/Vol] 4.1 mmol/L 3.5-5.1 [facility] Protein [Mass/Vol] 8.0 g/dL 6.4-8.2 [place] Sodium [Moles/Vol] 138 mmol/L 136-145 [place] WBC (Bld) [#/Vol] 8.1 10*3/uL 4.4-11.0 [place] Blood erythrocytes count (nu mber/volume)Ordered By: Dr. Avila on 03-28-2022 RBC (Bld) [#/Vol] 3.92 10*6/uL 4.2-5.4 [facility] Blood hemoglobin measurement (mass/volume)Ordered By: Dr. Avila on 03-28-2022 Hemoglobin (Bld) [Mass/Vol] 13.1 g/dL 12.0-15.0 [facility] Blood lymphocytes/100 leukoc ytesOrdered By: Dr. Avila on 03-28-2022 Lymphocytes/100 WBC (Bld) 16.6 % 19-41 [facility] Blood monocytes/100 leukocyt esOrdered By: Dr. Avila on 03-28-2022 Monocytes/100 WBC (Bld) 5.9 % 0-10 [facility] Blood platelet mean volumeOr dered By: Dr. Avila on 03-28-2022 Platelet mean volume (Bld) [Entitic vol] 8.3 fL 6.2-12.0 [facility] Determination of erythrocyte mean corpuscular volume (MCV)Ordered By: Dr. Avila on 03-28-2022 MCV (RBC) [Entitic vol] 100.8 fL 81-99 [facility] Hematocrit Auto (Bld) [Volum e fraction]Ordered By: Dr. Avila on 03-28-2022 Hematocrit (Bld) [Volume fraction] 39.5 % 37-47 [facility] Laboratory - Chemistry and C hemistry - challengeOrdered By: Dr. Avila on 03-28-2022 ALP [Catalytic activity/Vol] 92 U/L 45-117 [facility] ALT [Catalytic activity/Vol] 19 U/L 13-56 [facility] CO2 [Moles/Vol] 29.0 mmol/L 21.0-32.0 [facility] Globulin (S) [Mass/Vol] 4.5 g/dL 2.2-4.2 [facility] Urea nitrogen/Creatinine [Mass ratio] 15.8 mg/mg 10-20 [facility] Laboratory - Hematology and Cell countsOrdered By: Dr. Avila on 03-28-2022 Erythrocyte distribution width (RBC) [Entitic vol] 49.1 fL 35.1-43.9 [facility] Erythrocyte distribution width (RBC) [Ratio] 13.3 % 11.6-14.6 [facility] Immature granulocytes/100 WBC (Bld) 0.200 % 0.0-0.9 [facility] Comment on above: IG% - Immature Granu locytes (promyelocytes, myelocytes and metamyelocytes) > 1% indicates that a LEFT SHIFT is Present. MCH (RBC) [Entitic mass] 33.4 pg 27.0-32.0 [facility] Nucleated RBC/100 WBC (Bld) [Ratio] 0 % 0-5 [facility] MCHC Auto (RBC) [Mass/Vol]Or dered By: Dr. Avila on 03-28-2022 MCHC (RBC) [Mass/Vol] 33.2 g/dL 32-36 [facility] No Panel InformationOrdered By: Dr. Avila on 03-28-2022 Estimated GFR (MDRD) Amer 68 mL/min >60 [facility] Comment on above: GFR Calc Estimated GFR (MDRD) Non-Af Amer 56 mL/min >60 [facility] Comment on above: Non- GFR Calc Platelets bldOrdered By: Dr. Avila on 03-28-2022 Platelets (Bld) [#/Vol] 349 10*3/uL 150-450 [facility] Serum or plasma albumin rohan urement (mass/volume)Ordered By: Dr. Avila on 03-28-2022 Albumin [Mass/Vol] 3.5 g/dL 3.2-5.0 [place] Serum or plasma albumin/glob ulin mass ratioOrdered By: Dr. Avila on 03-28-2022 Albumin/Globulin [Mass ratio] 0.8 {ratio} 0.9-2.4 [facility] Serum or plasma calcium rohan urement (mass/volume)Ordered By: Dr. Avila on 03-28-2022 Calcium [Mass/Vol] 9.7 mg/dL 8.5-10.1 [place] Serum or plasma creatinine m easurement (mass/volume)Ordered By: Dr. Avila on 03-28-2022 Creatinine [Mass/Vol] 1.01 mg/dL 0.55-1.02 [facility] Comment on above: The validity of the calculated GFR & GFRAA in patients over 70 years has not been determined. Clinical correlation is essential. Serum or plasma urea nitroge n measurement (mass/volume)Ordered By: Dr. Avila on 03-28-2022 Urea nitrogen [Mass/Vol] 16 mg/dL 7-18 [facility] Thin prep Papanicolaou smear with manual screeningOrdered By: Dr. Avila on 03-28-2022 Thin prep Papanicolaou smear with manual screening 19 U/L 15-37 [facility] Thin prep Papanicolaou smear with manual screening 8 5-15 [facility] Absolute lymphocyte counton 02-22-2022 Lymphocytes Auto (Unsp spec) [#/Vol] 1.80 10*3/uL 0.83-4.51 [facility] Work Phone: Basophil percentageon 2021 Basophils/100 WBC (Bld) 0.4 % 0-1 [facility] Work Phone: Bilirubin [Mass/Vol] 0.60 mg/dL 0.20-1.00 [facility] Work Phone: Comment on above: For patients on eltr ombopag therapy, use of [employer] [place] TBIL is not recommended. Chloride [Moles/Vol] 102 mmol/L 98-107 [facility] Work Phone: Eosinophils/100 WBC (Bld) 1.8 % 0-5 [facility] Work Phone: Glucose [Mass/Vol] 149 mg/dL 74-106 [place] Work Phone: Comment on above: Fasting Glucose resu lt greater than or equal to 126 mg/dL suggests DIABETES MELLITUS per A.D.A. criteria. Neutrophils (Bld) [#/Vol] 4.7 10*3/uL 2.0-7.7 [facility] Work Phone: Neutrophils/100 WBC (Bld) 65.3 % 47-70 [facility] Work Phone: Potassium [Moles/Vol] 4.5 mmol/L 3.5-5.1 [facility] Work Phone: [phone] Protein [Mass/Vol] 8.1 g/dL 6.4-8.2 [place] Work Phone: Sodium [Moles/Vol] 137 mmol/L 136-145 [place] Work Phone: WBC (Bld) [#/Vol] 7.2 10*3/uL 4.4-11.0 [place] Work Phone: [phone] Blood erythrocytes count (nu mber/volume)on 02-22-2022 RBC (Bld) [#/Vol] 4.03 10*6/uL 4.2-5.4 [facility] Work Phone: Blood hemoglobin measurement (mass/volume)on 02-22-2022 Hemoglobin (Bld) [Mass/Vol] 13.1 g/dL 12.0-15.0 [facility] Work Phone: Blood lymphocytes/100 leukoc yteson 02-22-2022 Lymphocytes/100 WBC (Bld) 25.1 % 19-41 [facility] Work Phone: Blood monocytes/100 leukocyt eson 02-22-2022 Monocytes/100 WBC (Bld) 7.1 % 0-10 [facility] Work Phone: Blood platelet mean volumeon 02-22-2022 Platelet mean volume (Bld) [Entitic vol] 8.7 fL 6.2-12.0 [facility] Work Phone: Determination of erythrocyte mean corpuscular volume (MCV)on 02-22-2022 MCV (RBC) [Entitic vol] 99.3 fL 81-99 [facility] Work Phone: Hematocrit Auto (Bld) [Volum e fraction]on 02-22-2022 Hematocrit (Bld) [Volume fraction] 40.0 % 37-47 [facility] Work Phone: Laboratory - Chemistry and C hemistry - challengeon 02-22-2022 ALP [Catalytic activity/Vol] 77 U/L 45-117 [facility] Work Phone: ALT [Catalytic activity/Vol] 18 U/L 13-56 [facility] Work Phone: CO2 [Moles/Vol] 27.0 mmol/L 21.0-32.0 [facility] Work Phone: Globulin (S) [Mass/Vol] 4.3 g/dL 2.2-4.2 [facility] Work Phone: Urea nitrogen/Creatinine [Mass ratio] 13.3 mg/mg 10-20 [facility] Work Phone: Laboratory - Hematology and Cell countson 02-22-2022 Erythrocyte distribution width (RBC) [Entitic vol] 47.7 fL 35.1-43.9 [facility] Work Phone: Erythrocyte distribution width (RBC) [Ratio] 13.2 % 11.6-14.6 [facility] Work Phone: Immature granulocytes/100 WBC (Bld) 0.300 % 0.0-0.9 [facility] Work Phone: Comment on above: IG% - Immature Granu locytes (promyelocytes, myelocytes and metamyelocytes) > 1% indicates that a LEFT SHIFT is Present. MCH (RBC) [Entitic mass] 32.5 pg 27.0-32.0 [facility] Work Phone: Nucleated RBC/100 WBC (Bld) [Ratio] 0 % 0-5 [facility] Work Phone: MCHC Auto (RBC) [Mass/Vol]on 02-22-2022 MCHC (RBC) [Mass/Vol] 32.8 g/dL 32-36 [facility] Work Phone: No Panel Informationon 02-22 Estimated GFR (MDRD) Amer 65 mL/min >60 [facility] Work Phone: Comment on above: GFR Calc Estimated GFR (MDRD) Non-Af Amer 53 mL/min >60 [facility] Work Phone: Comment on above: Non- GFR Calc Thyroid Stimulating Hormone (TSH) 3.16 uIU/mL 0.358-3.74 [facility] Work Phone: Vitamin D 25-Hydroxy 62.6 ng/mL [facility] Work Phone: Comment on above: Vitamin D 25(OH) Sta tus Range Deficiency <20 ng/mL (50nmol/L) Insufficiency 20 - 30 ng/mL (50 - 75 nmol/L) Sufficiency 30 - 100 ng/mL (75 - 250 nmol/L) Toxicity >100 ng/mL (>250 nmol/L) Platelets bldon 02-22-2022 Platelets (Bld) [#/Vol] 326 10*3/uL 150-450 [facility] Work Phone: Serum or plasma albumin rohan urement (mass/volume)on 02-22-2022 Albumin [Mass/Vol] 3.8 g/dL 3.2-5.0 [place] Work Phone: Serum or plasma albumin/glob ulin mass ratioon 02-22-2022 Albumin/Globulin [Mass ratio] 0.9 {ratio} 0.9-2.4 [facility] Work Phone: Serum or plasma calcium rohan urement (mass/volume)on 02-22-2022 Calcium [Mass/Vol] 9.9 mg/dL 8.5-10.1 [place] Work Phone: Serum or plasma creatinine m easurement (mass/volume)on 02-22-2022 Creatinine [Mass/Vol] 1.05 mg/dL 0.55-1.02 [facility] Work Phone: Comment on above: The validity of the calculated GFR & GFRAA in patients over 70 years has not been determined. Clinical correlation is essential. Serum or plasma urea nitroge n measurement (mass/volume)on 02-22-2022 Urea nitrogen [Mass/Vol] 14 mg/dL 7-18 [facility] Work Phone: Thin prep Papanicolaou smear with manual screeningon 02-22-2022 Thin prep Papanicolaou smear with manual screening 15 U/L 15-37 [facility] Work Phone: Thin prep Papanicolaou smear with manual screening 8 5-15 [facility] Work Phone: Absolute lymphocyte counton 12-27-2021 Lymphocytes Auto (Unsp spec) [#/Vol] 1.31 10*3/uL 0.83-4.51 [facility] Work Phone: Basophil percentageon 2021 Basophils/100 WBC (Bld) 0.2 % 0-1 [facility] Work Phone: Bilirubin [Mass/Vol] 0.50 mg/dL 0.20-1.00 [facility] Work Phone: Comment on above: For patients on eltr ombopag therapy, use of Dimension [place] TBIL is not recommended. Chloride [Moles/Vol] 105 mmol/L 98-107 [facility] Work Phone: Eosinophils/100 WBC (Bld) 1.7 % 0-5 [facility] Work Phone: Glucose [Mass/Vol] 117 mg/dL 74-106 [place] Work Phone: Comment on above: Fasting Glucose resu lt from 100 to 125 mg/dL suggests IMPAIRED HOMEOSTASIS per A.D.A. criteria. Neutrophils (Bld) [#/Vol] 6.1 10*3/uL 2.0-7.7 [facility] Work Phone: Neutrophils/100 WBC (Bld) 75.9 % 47-70 [facility] Work Phone: Potassium [Moles/Vol] 4.2 mmol/L 3.5-5.1 [facility] Work Phone: Protein [Mass/Vol] 8.0 g/dL 6.4-8.2 [place] Work Phone: Sodium [Moles/Vol] 140 mmol/L 136-145 [place] Work Phone: WBC (Bld) [#/Vol] 8.0 10*3/uL 4.4-11.0 [place] Work Phone: Blood erythrocytes count (nu mber/volume)on 12-27-2021 RBC (Bld) [#/Vol] 4.08 10*6/uL 4.2-5.4 [facility] Work Phone: [phone] Blood hemoglobin measurement (mass/volume)on 12-27-2021 Hemoglobin (Bld) [Mass/Vol] 13.4 g/dL 12.0-15.0 [facility] Work Phone: Blood lymphocytes/100 leukoc yteson 12-27-2021 Lymphocytes/100 WBC (Bld) 16.3 % 19-41 [facility] Work Phone: Blood monocytes/100 leukocyt eson 12-27-2021 Monocytes/100 WBC (Bld) 5.7 % 0-10 [facility] Work Phone: Blood platelet mean volumeon 12-27-2021 Platelet mean volume (Bld) [Entitic vol] 8.9 fL 6.2-12.0 [facility] Work Phone: Determination of erythrocyte mean corpuscular volume (MCV)on 12-27-2021 MCV (RBC) [Entitic vol] 101.0 fL 81-99 [facility] Work Phone: Hematocrit Auto (Bld) [Volum e fraction]on 12-27-2021 Hematocrit (Bld) [Volume fraction] 41.2 % 37-47 [facility] Work Phone: Laboratory - Chemistry and C hemistry - challengeon 12-27-2021 ALP [Catalytic activity/Vol] 76 U/L 45-117 [facility] Work Phone: ALT [Catalytic activity/Vol] 19 U/L 13-56 [facility] Work Phone: CO2 [Moles/Vol] 30.0 mmol/L 21.0-32.0 [facility] Work Phone: Globulin (S) [Mass/Vol] 4.3 g/dL 2.2-4.2 [facility] Work Phone: Urea nitrogen/Creatinine [Mass ratio] 16.2 mg/mg 10-20 [facility] Work Phone: Laboratory - Hematology and Cell countson 12-27-2021 Erythrocyte distribution width (RBC) [Entitic vol] 50.5 fL 35.1-43.9 [facility] Work Phone: Erythrocyte distribution width (RBC) [Ratio] 13.6 % 11.6-14.6 [facility] Work Phone: Immature granulocytes/100 WBC (Bld) 0.200 % 0.0-0.9 [facility] Work Phone: Comment on above: IG% - Immature Granu locytes (promyelocytes, myelocytes and metamyelocytes) > 1% indicates that a LEFT SHIFT is Present. MCH (RBC) [Entitic mass] 32.8 pg 27.0-32.0 [facility] Work Phone: Nucleated RBC/100 WBC (Bld) [Ratio] 0 % 0-5 [facility] Work Phone: MCHC Auto (RBC) [Mass/Vol]on 12-27-2021 MCHC (RBC) [Mass/Vol] 32.5 g/dL 32-36 [facility] Work Phone: No Panel Informationon 12-27 Estimated GFR (MDRD) Amer 70 mL/min >60 [facility] Work Phone: Comment on above: GFR Calc Estimated GFR (MDRD) Non-Af Amer 57 mL/min >60 [facility] Work Phone: Comment on above: Non- GFR Calc Platelets bldon 12-27-2021 Platelets (Bld) [#/Vol] 351 10*3/uL 150-450 [facility] Work Phone: Serum or plasma albumin rohan urement (mass/volume)on 12-27-2021 Albumin [Mass/Vol] 3.7 g/dL 3.2-5.0 [place] Work Phone: Serum or plasma albumin/glob ulin mass ratioon 12-27-2021 Albumin/Globulin [Mass ratio] 0.9 {ratio} 0.9-2.4 [facility] Work Phone: Serum or plasma calcium rohan urement (mass/volume)on 12-27-2021 Calcium [Mass/Vol] 10.2 mg/dL 8.5-10.1 [place] Work Phone: Serum or plasma creatinine m easurement (mass/volume)on 12-27-2021 Creatinine [Mass/Vol] 0.98 mg/dL 0.55-1.02 [facility] Work Phone: Comment on above: The validity of the calculated GFR & GFRAA in patients over 70 years has not been determined. Clinical correlation is essential. Serum or plasma urea nitroge n measurement (mass/volume)on 12-27-2021 Urea nitrogen [Mass/Vol] 16 mg/dL -18 [facility] Work Phone: Thin prep Papanicolaou smear with manual screeningon 12-27-2021 Thin prep Papanicolaou smear with manual screening 19 U/L 15- [facility] Work Phone: Thin prep Papanicolaou smear with manual screening 5 5-15 [facility] Work Phone: Absolute lymphocyte counton 10-04-2021 Lymphocytes Auto (Unsp spec) [#/Vol] 1.30 10*3/uL 0.83-4.51 [facility] Work Phone: Basophil percentageon 2021 Basophils/100 WBC (Bld) 0.2 % 0-1 [facility] Work Phone: Bilirubin [Mass/Vol] 0.60 mg/dL 0.20-1.00 [facility] Work Phone: Comment on above: For patients on eltr ombopag therapy, use of Dimension [place] TBIL is not recommended. Chloride [Moles/Vol] 104 mmol/L 98-107 [facility] Work Phone: Eosinophils/100 WBC (Bld) 1.7 % 0-5 [facility] Work Phone: Glucose [Mass/Vol] 126 mg/dL 74-106 [place] Work Phone: Comment on above: Fasting Glucose resu lt greater than or equal to 126 mg/dL suggests DIABETES MELLITUS per A.D.A. criteria. Neutrophils (Bld) [#/Vol] 6.3 10*3/uL 2.0-7.7 [facility] Work Phone: Neutrophils/100 WBC (Bld) 75.1 % 47-70 [facility] Work Phone: Potassium [Moles/Vol] 4.1 mmol/L 3.5-5.1 [facility] Work Phone: [phone] Protein [Mass/Vol] 8.0 g/dL 6.4-8.2 [place] Work Phone: Sodium [Moles/Vol] 139 mmol/L 136-145 [place] Work Phone: WBC (Bld) [#/Vol] 8.4 10*3/uL 4.4-11.0 [facility] Work Phone: Blood erythrocytes count (nu mber/volume)on 10-04-2021 RBC (Bld) [#/Vol] 4.11 10*6/uL 4.2-5.4 [facility] Work Phone: Blood hemoglobin measurement (mass/volume)on 10-04-2021 Hemoglobin (Bld) [Mass/Vol] 13.5 g/dL 12.0-15.0 [facility] Work Phone: Blood lymphocytes/100 leukoc yteson 10-04-2021 Lymphocytes/100 WBC (Bld) 15.5 % 19-41 [facility] Work Phone: Blood monocytes/100 leukocyt eson 10-04-2021 Monocytes/100 WBC (Bld) 7.1 % 0-10 [facility] Work Phone: Blood platelet mean volumeon 10-04-2021 Platelet mean volume (Bld) [Entitic vol] 9.0 fL 6.2-12.0 [facility] Work Phone: Determination of erythrocyte mean corpuscular volume (MCV)on 10-04-2021 MCV (RBC) [Entitic vol] 101.2 fL 81-99 [facility] Work Phone: Hematocrit Auto (Bld) [Volum e fraction]on 10-04-2021 Hematocrit (Bld) [Volume fraction] 41.6 % 37-47 [facility] Work Phone: Laboratory - Chemistry and C hemistry - challengeon 10-04-2021 ALP [Catalytic activity/Vol] 88 U/L 45-117 [facility] Work Phone: ALT [Catalytic activity/Vol] 26 U/L 13-56 [facility] Work Phone: CO2 [Moles/Vol] 32.0 mmol/L 21.0-32.0 [facility] Work Phone: Globulin (S) [Mass/Vol] 4.2 g/dL 2.2-4.2 [facility] Work Phone: Urea nitrogen/Creatinine [Mass ratio] 17.5 mg/mg 10-20 [facility] Work Phone: Laboratory - Hematology and Cell countson 10-04-2021 Erythrocyte distribution width (RBC) [Entitic vol] 49.1 fL 35.1-43.9 [facility] Work Phone: Erythrocyte distribution width (RBC) [Ratio] 13.3 % 11.6-14.6 [facility] Work Phone: Immature granulocytes/100 WBC (Bld) 0.400 % 0.0-0.9 [facility] Work Phone: Comment on above: IG% - Immature Granu locytes (promyelocytes, myelocytes and metamyelocytes) > 1% indicates that a LEFT SHIFT is Present. MCH (RBC) [Entitic mass] 32.8 pg 27.0-32.0 [facility] Work Phone: Nucleated RBC/100 WBC (Bld) [Ratio] 0 % 0-5 [facility] Work Phone: MCHC Auto (RBC) [Mass/Vol]on 10-04-2021 MCHC (RBC) [Mass/Vol] 32.5 g/dL 32-36 [facility] Work Phone: No Panel Informationon 10-04 Estimated GFR (MDRD) Amer 71 mL/min >60 [facility] Work Phone: Comment on above: GFR Calc Estimated GFR (MDRD) Non-Af Amer 59 mL/min >60 [facility] Work Phone: Comment on above: Non- GFR Calc Platelets bldon 10-04-2021 Platelets (Bld) [#/Vol] 348 10*3/uL 150-450 [facility] Work Phone: Serum or plasma albumin rohan urement (mass/volume)on 10-04-2021 Albumin [Mass/Vol] 3.8 g/dL 3.2-5.0 [place] Work Phone: Serum or plasma albumin/glob ulin mass ratioon 10-04-2021 Albumin/Globulin [Mass ratio] 0.9 {ratio} 0.9-2.4 [facility] Work Phone: Serum or plasma calcium rohan urement (mass/volume)on 10-04-2021 Calcium [Mass/Vol] 9.8 mg/dL 8.5-10.1 [place] Work Phone: Serum or plasma creatinine m easurement (mass/volume)on 10-04-2021 Creatinine [Mass/Vol] 0.97 mg/dL 0.55-1.02 [facility] Work Phone: Comment on above: The validity of the calculated GFR & GFRAA in patients over 70 years has not been determined. Clinical correlation is essential. Serum or plasma urea nitroge n measurement (mass/volume)on 10-04-2021 Urea nitrogen [Mass/Vol] 17 mg/dL 7-18 [facility] Work Phone: Thin prep Papanicolaou smear with manual screeningon 10-04-2021 Thin prep Papanicolaou smear with manual screening 18 U/L 15-37 [facility] Work Phone: Thin prep Papanicolaou smear with manual screening 3 5-15 [facility] Work Phone: Absolute lymphocyte counton 07-12-2021 Lymphocytes Auto (Unsp spec) [#/Vol] 1.39 10*3/uL 0.83-4.51 [facility] Work Phone: Basophil percentageon 2021 Basophils/100 WBC (Bld) 0.4 % 0-1 [facility] Work Phone: Bilirubin [Mass/Vol] 0.60 mg/dL 0.20-1.00 [facility] Work Phone: Comment on above: For patients on eltr ombopag therapy, use of Dimension [place] TBIL is not recommended. Chloride [Moles/Vol] 105 mmol/L 98-107 [facility] Work Phone: Eosinophils/100 WBC (Bld) 1.5 % 0-5 [facility] Work Phone: Glucose [Mass/Vol] 141 mg/dL 74-106 [place] Work Phone: Comment on above: Fasting Glucose resu lt greater than or equal to 126 mg/dL suggests DIABETES MELLITUS per A.D.A. criteria. Neutrophils (Bld) [#/Vol] 7.7 10*3/uL 2.0-7.7 [facility] Work Phone: [phone] Neutrophils/100 WBC (Bld) 78.0 % 47-70 [facility] Work Phone: [phone] Potassium [Moles/Vol] 4.2 mmol/L 3.5-5.1 [facility] Work Phone: Protein [Mass/Vol] 8.0 g/dL 6.4-8.2 [place] Work Phone: Sodium [Moles/Vol] 138 mmol/L 136-145 [place] Work Phone: WBC (Bld) [#/Vol] 9.9 10*3/uL 4.4-11.0 [place] Work Phone: Blood erythrocytes count (nu mber/volume)on 07-12-2021 RBC (Bld) [#/Vol] 4.10 10*6/uL 4.2-5.4 [facility] Work Phone: Blood hemoglobin measurement (mass/volume)on 07-12-2021 Hemoglobin (Bld) [Mass/Vol] 13.2 g/dL 12.0-15.0 [facility] Work Phone: Blood lymphocytes/100 leukoc yteson 07-12-2021 Lymphocytes/100 WBC (Bld) 14.0 % 19-41 [facility] Work Phone: Blood monocytes/100 leukocyt eson 07-12-2021 Monocytes/100 WBC (Bld) 5.7 % 0-10 [facility] Work Phone: Blood platelet mean volumeon 07-12-2021 Platelet mean volume (Bld) [Entitic vol] 8.9 fL 6.2-12.0 [facility] Work Phone: Determination of erythrocyte mean corpuscular volume (MCV)on 07-12-2021 MCV (RBC) [Entitic vol] 100.7 fL 81-99 [facility] Work Phone: Hematocrit Auto (Bld) [Volum e fraction]on 07-12-2021 Hematocrit (Bld) [Volume fraction] 41.3 % 37-47 [facility] Work Phone: Laboratory - Chemistry and C hemistry - challengeon 07-12-2021 ALP [Catalytic activity/Vol] 92 U/L 45-117 [facility] Work Phone: ALT [Catalytic activity/Vol] 21 U/L 13-56 [facility] Work Phone: CO2 [Moles/Vol] 28.0 mmol/L 21.0-32.0 [facility] Work Phone: Globulin (S) [Mass/Vol] 4.3 g/dL 2.2-4.2 [facility] Work Phone: Urea nitrogen/Creatinine [Mass ratio] 13.4 mg/mg 10-20 [facility] Work Phone: Laboratory - Hematology and Cell countson 07-12-2021 Erythrocyte distribution width (RBC) [Entitic vol] 50.1 fL 35.1-43.9 [facility] Work Phone: Erythrocyte distribution width (RBC) [Ratio] 13.6 % 11.6-14.6 [facility] Work Phone: Immature granulocytes/100 WBC (Bld) 0.400 % 0.0-0.9 [facility] Work Phone: Comment on above: IG% - Immature Granu locytes (promyelocytes, myelocytes and metamyelocytes) > 1% indicates that a LEFT SHIFT is Present. MCH (RBC) [Entitic mass] 32.2 pg 27.0-32.0 [facility] Work Phone: Nucleated RBC/100 WBC (Bld) [Ratio] 0 % 0-5 [facility] Work Phone: MCHC Auto (RBC) [Mass/Vol]on 07-12-2021 MCHC (RBC) [Mass/Vol] 32.0 g/dL 32-36 [facility] Work Phone: No Panel Informationon 07-12 Estimated GFR (MDRD) Amer 71 mL/min >60 [facility] Work Phone: Comment on above: GFR Calc Estimated GFR (MDRD) Non-Af Amer 58 mL/min >60 [facility] Work Phone: Comment on above: Non- GFR Calc Platelets bldon 07-12-2021 Platelets (Bld) [#/Vol] 329 10*3/uL 150-450 [facility] Work Phone: Serum or plasma albumin rohan urement (mass/volume)on 07-12-2021 Albumin [Mass/Vol] 3.7 g/dL 3.2-5.0 [place] Work Phone: Serum or plasma albumin/glob ulin mass ratioon 07-12-2021 Albumin/Globulin [Mass ratio] 0.9 {ratio} 0.9-2.4 [facility] Work Phone: Serum or plasma calcium rohan urement (mass/volume)on 07-12-2021 Calcium [Mass/Vol] 9.9 mg/dL 8.5-10.1 [place] Work Phone: Serum or plasma creatinine m easurement (mass/volume)on 07-12-2021 Creatinine [Mass/Vol] 0.97 mg/dL 0.55-1.02 [facility] Work Phone: Comment on above: The validity of the calculated GFR & GFRAA in patients over 70 years has not been determined. Clinical correlation is essential. Serum or plasma urea nitroge n measurement (mass/volume)on 07-12-2021 Urea nitrogen [Mass/Vol] 13 mg/dL 7-18 [facility] Work Phone: Thin prep Papanicolaou smear with manual screeningon 07-12-2021 Thin prep Papanicolaou smear with manual screening 20 U/L 15-37 [facility] Work Phone: Thin prep Papanicolaou smear with manual screening 5 5-15 [facility] Work Phone: Office Visit: pulmonary fibr osis and noduleon 01-26-2017 Documentation of current medications (procedure) Done Invalid Interpretation Code [facility] [employer] Phone: Fall risk assessment Yes [facility] Work Phone: Protein mass conc Done [facility] Work Phone: Tobacco smoking status TXIS Never [facility] Work Phone: Tobacco smoking status [facility] Never smoker [facility] Work Phone: Tobacco use [facility] Never smoker Invalid Interpretation Code [facility] [employer] Phone: Vital Signs Date Time Vital Sign Value Performing Clinician Andrew phillips 06-26-2023 13:05-0500 Body temperature 97.5 [degF] Dr. Victor M Cochran Work Phone: [facility] 06-26-2023 13:05-0500 Diastolic blood pressure 63 mm[Hg] Dr. Victor M Cochran Work Phone: [facility] 06-26-2023 13:05-0500 Heart rate 85 /min Dr. Victor M Cochran Work Phone: [facility] 06-26-2023 13:05-0500 Respiratory rate 16 /min Dr. Victor M Cochran Work Phone: [facility] 06-26-2023 13:05-0500 SaO2% (BldA) [Mass fraction] 100 % Dr. Victor M Cochran Work Phone: [phone] [place] [address] 06-26-2023 13:05-0500 Systolic blood pressure 121 mm[Hg] Dr. Victor M Cochran Work Phone: 7(735)002-741139 [place] [address] 06-26-2023 11:10-0500 Body height 157.[address] Victor M Cochran Work Phone: 3(165)448-142339 [place] [address] 06-26-2023 11:10-0500 Body mass index (BMI) [Ratio] 14.2 kg/m2 Dr. Victor M Cochran Work Phone: 4(376)622-872939 [place] [address] 06-26-2023 11:10-0500 Body weight 35.[address] Victor M Cochran Work Phone: 4(472)719-948139 [place] [address] 06-15-2023 13:26-0500 Body temperature 97.2 [degF] Dr. Victor M Cochran Work Phone: 3(016)348-869339 [place] [address] 06-15-2023 13:26-0500 Diastolic blood pressure 60 mm[Hg] Dr. Victor M Cochran Work Phone: 3(805)632-435639 [place] [address] 06-15-2023 13:26-0500 Heart rate 79 /min Dr. Victor M Cochran Work Phone: 1(036)692-089839 [place] [address] 06-15-2023 13:26-0500 Respiratory rate 14 /min Dr. Victor M Cochran Work Phone: 3(245)523-203539 [place] [address] 06-15-2023 13:26-0500 SaO2% (BldA) [Mass fraction] 98 % Dr. Victor M Cochran Work Phone: 9(383)733-051739 [place] [address] 06-15-2023 13:26-0500 Systolic blood pressure 114 mm[Hg] Dr. Victor M Cochran Work Phone: 6(296)518-996839 [place] [address] 06-14-2023 10:40-0500 Body mass index (BMI) [Ratio] 13.4 kg/m2 Dr. Victor M Cochran Work Phone: 6(872)483-415439 [place] [address] 06-14-2023 10:40-0500 Body weight 35.[address] Victor M Cochran Work Phone: 3(413)425-358639 [place] [address] 06-07-2023 15:03-0500 Body height 162.[address] Victor M Cochran Work Phone: [facility] 06-01-2023 08:45-0500 Body height 162.[address] Victor M Cochran Work Phone: [facility] 06-01-2023 08:45-0500 Body weight 38.[address] Victor M Cochran Work Phone: [facility] 05-31-2023 15:00-0500 Body mass index (BMI) [Ratio] 14.6 kg/m2 Dr. Victor M Cochran Work Phone: [facility] 05-31-2023 14:25-0500 Body temperature 99.1 [degF] Dr. Victor M Cochran Work Phone: [facility] 05-31-2023 14:25-0500 Diastolic blood pressure 67 mm[Hg] Dr. Victor M Cochran Work Phone: [facility] 05-31-2023 14:25-0500 Heart rate 92 /min Dr. Victor M Cochran Work Phone: [facility] 05-31-2023 14:25-0500 Respiratory rate 16 /min Dr. Victor M Cochran Work Phone: [facility] 05-31-2023 14:25-0500 SaO2% (BldA) [Mass fraction] 92 % Dr. Victor M Cochran Work Phone: [facility] 05-31-2023 14:25-0500 Systolic blood pressure 133 mm[Hg] Dr. Victor M Cochran Work Phone: [facility] 05-31-2023 09:25-0500 Body temperature 97.3 [degF] Dr. Victor M Cochran Work Phone: [facility] 05-31-2023 09:25-0500 Diastolic blood pressure 73 mm[Hg] Dr. Victor M Cochran Work Phone: [facility] 05-31-2023 09:25-0500 Heart rate 72 /min Dr. Victor M Cochran Work Phone: [facility] 05-31-2023 09:25-0500 Respiratory rate 18 /min Dr. Victor M Cochran Work Phone: [facility] 05-31-2023 09:25-0500 SaO2% (BldA) [Mass fraction] 97 % Dr. Victo rM Cochran Work Phone: [facility] 05-31-2023 09:25-0500 Systolic blood pressure 135 mm[Hg] Dr. Victor M Cochran Work Phone: [facility] 05-31-2023 05:11-0500 Body mass index (BMI) [Ratio] 14.3 kg/m2 Dr. Victor M Cochran Work Phone: 0(867)593-585939 [place] [address] 05-31-2023 05:11-0500 Body weight 38.[address] Victor M Cochran Work Phone: 5(992)462-898439 [place] [address] 05-25-2023 20:00-0500 Diastolic blood pressure 77 mm[Hg] Dr. Victor M Cochran Work Phone: 7(402)875-998239 [place] [address] 05-25-2023 20:00-0500 Heart rate 73 /min Dr. Victor M Cochran Work Phone: [facility] 05-25-2023 20:00-0500 Respiratory rate 18 /min Dr. Victor M Cochran Work Phone: [facility] 05-25-2023 20:00-0500 SaO2% (BldA) [Mass fraction] 97 % Dr. Victor M Cochran Work Phone: [facility] 05-25-2023 20:00-0500 Systolic blood pressure 156 mm[Hg] Dr. Victor M Cochran Work Phone: [facility] 05-25-2023 18:43-0500 Body temperature 98.4 [degF] Dr. Victor M Cochran Work Phone: [facility] 05-25-2023 14:57-0500 Body height 157.[address] Victor M Cochran Work Phone: [facility] 05-25-2023 14:57-0500 Body mass index (BMI) [Ratio] 15.5 kg/m2 Dr. Victor M Cochran Work Phone: [facility] 05-25-2023 14:57-0500 Body weight 38.[address] Victor M Cochran Work Phone: [facility] 01-30-2023 15:45-0400 Diastolic blood pressure 82 mm[Hg] [facility] 01-30-2023 15:45-0400 Heart rate 70 /min [facility] 01-30-2023 15:45-0400 Respiratory rate 18 /min [facility] 01-30-2023 15:45-0400 SaO2% (BldA) [Mass fraction] 96 % [facility] 01-30-2023 15:45-0400 Systolic blood pressure 140 mm[Hg] [facility] 01-30-2023 12:39-0400 Body height 157.48 cm [facility] 01-30-2023 12:39-0400 Body temperature 97.3 [degF] [facility] 01-19-2023 14:53-0400 Respiratory rate 18 /min [facility] 01-19-2023 09:38-0400 Body height 157.48 cm [facility] 01-19-2023 09:38-0400 Body temperature 97.8 [degF] [facility] 01-19-2023 09:38-0400 Diastolic blood pressure 84 mm[Hg] [facility] 01-19-2023 09:38-0400 Heart rate 72 /min [facility] 01-19-2023 09:38-0400 SaO2% (BldA) [Mass fraction] 100 % [facility] 01-19-2023 09:38-0400 Systolic blood pressure 131 mm[Hg] [facility] 01-26-2017 06:16-0400 BMI (Body Mass Index) 16.65 kg/m2 Jud Hernandez [facility] Work Phone: 01-26-2017 06:16-0400 Body Temperature 97.2 [degF] Jud Hernandez [facility] Work Phone: 01-26-2017 06:16-0400 BP Diastolic 75 mm[Hg] Jud [facility] Work Phone: 01-26-2017 06:16-0400 BP Systolic 119 mm[Hg] Jud David [facility] Work Phone: 01-26-2017 06:16-0400 Height 160.02 cm Jud David [facility] Work Phone: 01-26-2017 06:16-0400 Pulse (Heart Rate) 81 /min Jud David [facility] Work Phone: 01-26-2017 06:16-0400 Respiratory Rate 18 /min Jud David [facility] Phone: 01-26-2017 06:16-0400 Weight 42.64 kg Jud David [facility] Work Phone: 01-28-2016 11:16-0400 Body Temperature 96.8 [degF] Jud David [facility] Phone: 01-28-2016 11:16-0400 BSA (Body Surface Area) 1.48 m2 Jud David [facility] Work Phone: 01-28-2016 11:16-0400 Height 160.02 cm Jud David [facility] Work Phone: 01-28-2016 11:16-0400 Weight 48.18 kg Jud David [facility] Phone: Encounters Encounter Date Encounter Type Care Provider Facility Start: 10-02-2024 End: 10-02-[address] Victor M Cochran MD Work Phone: [facility] Work Phone: Start: 10-02-2024 End: 10-02-[address] Mookie Price MD -Radiology, [facility] Work Phone: Start: 10-02-2024 End: 10-02-2024 ambulatory Ayman Basali Facility:[facility] Start: 03-11-2024 End: 03-11-2024 ambulatory Ayman Basali [facility] [facility] Start: 12-18-2023 End: 03-15-2024 ambulatory PEDRO LUIS ANAYA [facility] Start: 12-11-2023 End: 12-11-2023 ambulatory Victor M [place] Facility:[facility] Start: 12-08-2023 ambulatory Gogo L White Facility :[facility] Start: 12-07-2023 End: 12-13-2023 ambulatory Gogo L White Facility:[facility] Start: 10-23-2023 End: 10-23-2023 ambulatory Ayyee Basali Facility:[facility] Start: 10-10-2023 End: 10-10-2023 ambulatory [facility] Work Phone: Start: 10-10-2023 End: 10-10-2023 Patient encounter procedure [facility]-Laboratory, Phy Office 3rd Flr Start: 10-10-2023 End: 10-10-2023 ambulatory Victor M Cochran Facility:[facility] Start: 09-12-2023 End: 09-12-[address] Victor M Cochran Work Phone: [facility] Work Phone: Start: 09-12-2023 End: 09-12-[address] Victor M Cochran Work Phone: [facility]-Outpatient Bone Densitometry Work Phone: Start: 08-28-2023 End: 08-28-[address] Victor M Cochran Work Phone: [facility] Work Phone: Start: 08-28-2023 End: 08-28-[address] Victor M Cochran Work Phone: [facility]-Laboratory, Phy Office 3rd Flr Start: 07-10-2023 End: 07-10-[address] Victor M Cochran Work Phone: [facility] Work Phone: Start: 07-10-2023 End: 07-10-[address] Victor M Cochran Work Phone: [facility] Start: 06-26-2023 End: 06-26-2023 Admission to same day surgery center Dr. Victor M Cochran Work Phone: [facility]-Surgical Day Care Start: 06-26-2023 End: 06-26-[address] Victor M Cochran Work Phone: [facility] Work Phone: Start: 06-20-2023 End: 06-20-[address] Victor M Cochran Work Phone: [facility] Work Phone: Start: 06-20-2023 End: 06-20-[address] Victor M Cochran Work Phone: [facility] Start: 06-20-[address] Victor M ruiz Work Phone: [facility] Start: 06-19-2023 End: 06-19-[address] Victor M Cochrna Work Phone: [facility] Work Phone: Start: 06-19-2023 End: 06-19-[address] Victor M Cochran Work Phone: [facility] Start: 06-19-[address] Victor M ruiz Work Phone: [facility] Start: 06-16-2023 End: 06-16-[address] Victor M Cochran Work Phone: [facility] Work Phone: Start: 05-31-2023 End: 06-16-2023 Evaluation and management of inpatient Dr. Victor M Cochran Work Phone: [facility]-Transitional Care Unit Start: 05-31-2023 Non-patient / Non-visit Dr. Victor M Cochran Work Phone: [facility] Work Phone: Start: 05-30-2023 Non-patient / Non-visit Dr. Victor M Cochran Work Phone: [facility] Work Phone: Start: 05-29-2023 Non-patient / Non-visit Dr. Victor M Cochran Work Phone: [facility] Work Phone: Start: 05-28-2023 Non-patient / Non-visit Dr. Victor M Cochran Work Phone: [facility] Work Phone: Start: 05-27-2023 Non-patient / Non-visit Dr. Victor M Cochran Work Phone: [facility] Work Phone: Start: 05-26-2023 Non-patient / Non-visit Dr. Victor M Cochran Work Phone: [facility] Work Phone: Start: 05-25-2023 Non-patient / Non-visit Dr. Victor M Cochran Work Phone: [facility] Work Phone: Start: 05-25-2023 End: 05-31-2023 Evaluation and management of inpatient Dr. Victor M Cochran Work Phone: [facility]-Medical Surgical 3 Work Phone: Start: 05-25-2023 End: 05-25-[address] Victor M Cochran Work Phone: [facility] Work Phone: Start: 05-25-2023 End: 05-25-[address] [facility] 3rd Flr Start: 04-17-2023 End: 04-17-[address] Victor M Cochran [facility] [place] Work Phone: Start: 04-04-2023 End: 04-04-2023 ambulatory [facility] Work Phone: Start: 04-04-2023 End: 04-04-2023 Patient encounter procedure [facility]-Radiology, [facility] Work Phone: Start: 03-20-2023 End: 03-20-2023 [facility] Start: 03-16-2023 End: 03-16-2023 [facility] Start: 03-13-2023 End: 03-13-2023 [facility] Office 3rd Flr Start: 03-07-2023 End: 03-07-2023 ambulatory [facility] Work Phone: Start: 03-07-2023 End: 03-07-2023 [facility] [place] Work Phone: Start: 02-23-2023 End: 02-23-2023 ambulatory [facility] Work Phone: Start: 02-23-2023 End: 02-23-2023 [facility] Office 3rd Flr Start: 01-30-2023 End: 01-30-2023 Emergency department patient visit [facility]Emergency [facility] Work Phone: Start: 01-25-2023 End: 01-25-2023 Patient encounter procedure [facility]Radiology, [facility] Work Phone: Start: 01-23-2023 End: 01-23-2023 ambulatory [facility] Work Phone: Start: 01-23-2023 End: 01-23-2023 Patient encounter procedure [facility]-Radiology, [facility] Work Phone: Start: 01-19-2023 End: 01-19-2023 Emergency department patient visit [facility]Emer[facility] Work Phone: Start: 12-12-2022 End: 12-12-2022 ambulatory [facility] Work Phone: Start: 12-12-2022 End: 12-12-2022 Patient encounter procedure [facility] Work Phone: Start: 09-19-2022 End: 09-19-2022 ambulatory [facility] Work Phone: Start: 09-19-2022 End: 09-19-2022 Patient encounter procedure [facility] Start: 06-27-2022 End: 06-27-2022 ambulatory [facility] Work Phone: Start: 06-27-2022 End: 06-27-2022 Patient encounter procedure [facility] Start: 03-28-2022 End: 03-28-2022 ambulatory [facility] Work Phone: Start: 03-28-2022 End: 03-28-2022 Patient encounter procedure [facility] Start: 02-22-2022 End: 02-22-2022 ambulatory [facility] Work Phone: Start: 02-22-2022 End: 02-22-2022 [facility] [address] Start: 12-27-2021 End: 12-27-2021 Patient encounter procedure [facility] Start: 10-04-2021 End: 10-04-2021 Patient encounter procedure [facility] Start: 07-12-2021 End: 07-12-2021 [facility] [place] Procedures Date Procedure Procedure Detail Performing Clinician Start: 10-02-2024 X-ray of cervical spine Dr. Victor M Cochran MD Work Phone: Start: 09-12-2023 Dual energy X-ray absorptiometry Dr. Victor M Cochran Work Phone: Start: 06-26-2023 Injection of spinal epidural space Dr. Victor M Cochran Work Phone: Start: 06-26-2023 Injection using fluoroscopic guidance Dr. Victor M Cochran Work Phone: Start: 06-26-2023 Local anesthetic lum bar epidural block Dr. Victor M Cochran Work Phone: Start: 06-07-2023 Coronavirus COVID-[address] Victor M Cochran Work Phone: Start: 06-03-2023 Plain chest X-ray Dr. Santhosh Cochran Work Phone: Start: 05-25-2023 Plain chest X-ray Dr. Santhosh Cochran Work Phone: Start: 05-25-2023 CT of lumbar spine Dr. Victor M Cochran Work Phone: Start: 05-25-2023 Computed tomography of abdomen and pelvis with intravenous contrast Dr. Victor M Cochran Work Phone: Start: 05-25-2023 Coronavirus COVID-[address] Victor M Cochran Work Phone: Start: 05-25-[address] Victor M Cochran Work Phone: Start: 05-25-2023 SARS-CoV-2 & FLU Ant igen (Rapid) Dr. Victor M Cochran Work Phone: Start: 04-04-2023 Diagnostic radiograp hy of abdomen, decubitus and erect Start: 03-16-2023 Screening mammography Start: 03-16-2023 Measurement of occul t blood in stool specimen using immunoassay Start: 03-13-2023 Urine culture Start: 03-13-2023 Plain chest X-ray Start: 01-25-2023 Diagnostic radiograp hy of abdomen, decubitus and erect Start: 01-23-2023 Diagnostic radiograp hy of abdomen, decubitus and erect Start: 01-23-2023 X-ray of lumbosacral spine Start: 01-19-2023 Computed tomography of abdomen and pelvis with intravenous contrast Start: 10-22-2015 End: 12-07-2015 Follow Up Appt 3 months Liliana simental [employer] Work Phone: Start: 10-22-2015 End: 12-07-2015 Pulmonary Function Test - complete Liliana Alcocer [employer] Work Phone: Plan of Treatment Date Care Activity Detail Author Start: 07-20-2023 Blood chemistry [facility] Start: 07-13-2023 Blood chemistry [facility] Start: 07-06-2023 Blood chemistry [facility] Start: 06-29-2023 Blood chemistry [facility] Start: 06-26-2023 Anes dx/ther nerve block/injection prone pos ANESTH N BLOCK/INJ PRONE [facility] Start: 06-26-2023 Njx dx/ther sbst intrlmnr lmbr/sac w/img gdn NJX INTERLAMINAR LMBR/SAC [facility] Start: 06-26-2023 Injection using fluoroscopic guidance [facility] Start: 06-26-2023 Patient discharge [facility] Start: 06-22-2023 Blood chemistry [facility] Start: 06-16-2023 Patient discharge [facility] Start: 06-15-2023 [facility] Start: 06-15-2023 Development of care plan [facility] Start: 06-15-2023 Blood chemistry [facility] Start: 06-08-2023 Blood chemistry [facility] Start: 06-03-2023 Inhalation therapy procedure [facility] Start: 06-01-2023 Development of care plan [facility] Start: 06-01-2023 Developing a treatment plan [facility] Start: 06-01-2023 [facility] Start: 05-31-2023 Consultation for pain [facility] Start: 05-31-2023 End: 05-31-2023 Following clinical pathway protocol [facility] Start: 05-31-2023 Admission procedure [facility] Start: 05-31-2023 Measuring intake and output [facility] Start: 05-31-2023 [facility] Start: 05-31-2023 Referral to occupational therapist [facility] Start: 05-31-2023 Referral to service [facility] Start: 05-31-2023 Verification routine [facility] Start: 05-31-2023 Vital signs measurements [facility] Start: 05-31-2023 [facility] Start: 05-31-2023 Patient discharge [facility] Start: 05-31-2023 [facility] Start: 05-28-2023 [facility] Start: 05-27-2023 [facility] Start: 05-25-2023 Following clinical pathway protocol [facility] Start: 05-25-2023 Application of elastic bandage [facility] Start: 05-25-2023 Assessment of risk of venous thromboembolism [facility] Start: 05-25-2023 Fall prevention [facility] Start: 05-25-2023 Inhalation therapy procedure [facility] Start: 05-25-2023 Insertion of catheter into peripheral vein [facility] Start: 05-25-2023 Introduction of urinary catheter [facility] Start: 05-25-2023 Measuring intake and output [facility] Start: 05-25-[address] [facility] Start: 05-25-2023 Providing care according to standard [facility] Start: 05-25-2023 Provision of activity privileges [facility] Start: 05-25-2023 Referral to occupational therapist [facility] Start: 05-25-2023 Referral to service [facility] Start: 05-25-2023 [facility] Start: 05-25-2023 SARS-CoV-2 [facility] Start: 05-25-2023 Verification routine [facility] Start: 05-25-2023 Admission procedure [facility] Start: 05-25-2023 Hospital admission, emergency, from emergency room, medical nature [facility] Start: 05-25-2023 [facility] Start: 03-13-2023 Bacteria identified in Urine by Culture Urine Culture [facility] Start: 03-13-2023 Plain chest X-ray Chest PA and Lateral [facility] Start: 03-13-2023 Brain natriuretic peptide measurement [facility] Start: 03-13-2023 Thyroid stimulating hormone measurement [facility] Start: 03-13-2023 [facility] Start: 01-26-2017 End: 01-26-2017 Appointment Appointment [facility] Phone: Start: 01-28-2016 End: 01-28-2016 BWA BWA [facility] Phone: Start: 01-28-2016 End: 01-28-2016 Follow Up Appt 1 year Follow Up Appt 1 year [facility] Phone: Start: 10-22-2015 End: 12-07-2015 Follow Up Appt 3 months Follow Up Appt 3 months [facility] Phone: Start: 10-22-2015 End: 12-07-2015 Pulmonary Function Test - complete Pulmonary Function Test - complete [facility] Phone: Start: 03-12-2015 End: 04-09-2014 Ct thorax w/o dye CT Chest without contrast [facility] Phone: Start: 04-09-2014 End: 04-09-2014 *ANIBAL *ANIBAL [facility] Phone: Start: 04-09-2014 End: 04-09-2014 *ANCA *ANCA [facility] Phone: Start: 04-09-2014 End: 04-09-2014 Cyclic citrullinated peptide antibody *ANTICCP - CCP Antibody [facility] Phone: Start: 04-09-2014 End: 04-09-2014 Rheumatoid factor test *Rheumatoid Factor (qualiative) [facility] Phone: Alanine aminotransfe rase [Enzymatic activity/volume] in Serum or Plasma [facility] Albumin [Mass/volume ] in Serum or Plasma [facility] Alkaline phosphatase [Enzymatic activity/volume] in Serum or Plasma [facility] Anion gap measurement [place] [facility] Anion gap measurement [place] [facility] Anion gap measurement [place] [facility] Anion gap measurement [place] [facility] Anion gap measurement [place] [facility] Anion gap measurement [place] [facility] Anion gap measurement [place] [facility] Anion gap measurement [facility] Aspartate aminotrans ferase [Enzymatic activity/volume] in Serum or Plasma [facility] Bilirubin, total measurement [facility] BUN/Creatinine ratio [facility] BUN/Creatinine ratio [facility] BUN/Creatinine ratio [facility] BUN/Creatinine ratio [facility] BUN/Creatinine ratio [facility] BUN/Creatinine ratio [facility] BUN/Creatinine ratio [facility] BUN/Creatinine ratio [facility] Calcium [Mass/volume ] in Serum or Plasma [facility] Calcium [Mass/volume ] in Serum or Plasma [facility] Calcium [Mass/volume ] in Serum or Plasma [facility] Calcium [Mass/volume ] in Serum or Plasma [facility] Calcium [Mass/volume ] in Serum or Plasma [facility] Calcium [Mass/volume ] in Serum or Plasma [facility] Calcium [Mass/volume ] in Serum or Plasma [facility] Calcium [Mass/volume ] in Serum or Plasma [facility] Carbon dioxide, tota l [Moles/volume] in Serum or Plasma [facility] Carbon dioxide, tota l [Moles/volume] in Serum or Plasma [facility] Carbon dioxide, tota l [Moles/volume] in Serum or Plasma [facility] Carbon dioxide, tota l [Moles/volume] in Serum or Plasma [facility] Carbon dioxide, tota l [Moles/volume] in Serum or Plasma [facility] Carbon dioxide, tota l [Moles/volume] in Serum or Plasma [facility] Carbon dioxide, tota l [Moles/volume] in Serum or Plasma [facility] Carbon dioxide, tota l [Moles/volume] in Serum or Plasma [facility] Chloride [Moles/volu me] in Serum or Plasma [facility] Chloride [Moles/volu me] in Serum or Plasma [facility] Chloride [Moles/volu me] in Serum or Plasma [facility] Chloride [Moles/volu me] in Serum or Plasma [facility] Chloride [Moles/volu me] in Serum or Plasma [facility] Chloride [Moles/volu me] in Serum or Plasma [facility] Chloride [Moles/volu me] in Serum or Plasma [facility] Chloride [Moles/volu me] in Serum or Plasma [facility] Creatinine [Moles/vo lume] in Serum or Plasma [facility] Creatinine [Moles/vo lume] in Serum or Plasma [facility] Creatinine [Moles/vo lume] in Serum or Plasma [facility] Creatinine [Moles/vo lume] in Serum or Plasma [facility] Creatinine [Moles/vo lume] in Serum or Plasma [facility] Creatinine [Moles/vo lume] in Serum or Plasma [facility] Creatinine [Moles/vo lume] in Serum or Plasma [facility] Creatinine [Moles/vo lume] in Serum or Plasma [facility] Glucose [Mass/volume ] in Serum or Plasma [facility] Glucose [Mass/volume ] in Serum or Plasma [facility] Glucose [Mass/volume ] in Serum or Plasma [facility] Glucose [Mass/volume ] in Serum or Plasma [facility] Glucose [Mass/volume ] in Serum or Plasma [facility] Glucose [Mass/volume ] in Serum or Plasma [facility] Glucose [Mass/volume ] in Serum or Plasma [facility] Glucose [Mass/volume ] in Serum or Plasma [facility] Hematocrit [Volume Fraction] of Blood [facility] Hematocrit [Volume Fraction] of Blood [facility] Hematocrit [Volume Fraction] of Blood [facility] Hematocrit [Volume Fraction] of Blood [facility] Hematocrit [Volume Fraction] of Blood [facility] Hematocrit [Volume Fraction] of Blood [facility] Hematocrit [Volume Fraction] of Blood [facility] Hematocrit [Volume Fraction] of Blood [facility] Hemoglobin [Mass/vol ume] in Blood [facility] Hemoglobin [Mass/vol ume] in Blood [facility] Hemoglobin [Mass/vol ume] in Blood [facility] Hemoglobin [Mass/vol ume] in Blood [facility] Hemoglobin [Mass/vol ume] in Blood [facility] Hemoglobin [Mass/vol ume] in Blood [facility] Hemoglobin [Mass/vol ume] in Blood [facility] Hemoglobin [Mass/vol ume] in Blood [facility] Leukocytes [#/volume ] in Blood [facility] Leukocytes [#/volume ] in Blood [facility] Leukocytes [#/volume ] in Blood [facility] Leukocytes [#/volume ] in Blood [facility] Leukocytes [#/volume ] in Blood [facility] Leukocytes [#/volume ] in Blood [facility] Leukocytes [#/volume ] in Blood [facility] Leukocytes [#/volume ] in Blood [facility] Magnesium [Mass/volu me] in Serum or Plasma [facility] Mean corpuscular hem oglobin concentration determination [facility] Mean corpuscular hem oglobin concentration determination [facility] Mean corpuscular hem oglobin concentration determination [facility] Mean corpuscular hem oglobin concentration determination [facility] Mean corpuscular hem oglobin concentration determination [facility] Mean corpuscular hem oglobin concentration determination [facility] Mean corpuscular hem oglobin concentration determination [facility] Mean corpuscular hem oglobin concentration determination [facility] Mean corpuscular hem oglobin determination [facility] Mean corpuscular hem oglobin determination [facility] Mean corpuscular hem oglobin determination [facility] Mean corpuscular hem oglobin determination [facility] Mean corpuscular hem oglobin determination [facility] Mean corpuscular hem oglobin determination [facility] Mean corpuscular hem oglobin determination [facility] Mean corpuscular hem oglobin determination [facility] Measurement of renal function [facility] Measurement of renal function [facility] Measurement of renal function [facility] Measurement of renal function [facility] Measurement of renal function [facility] Measurement of renal function [facility] Measurement of renal function [facility] Measurement of renal function [facility] Neutrophil count [facility] Neutrophil percent differential count [facility] Neutrophil percent differential count [facility] Neutrophil percent differential count [facility] Neutrophil percent differential count [facility] Neutrophil percent differential count [facility] Neutrophil percent differential count [facility] Neutrophil percent differential count [facility] Neutrophil percent differential count [facility] Patient Education [facility] Work Phone: Patient referral [facility] Work Phone: Platelets [#/volume] in Blood [facility] Platelets [#/volume] in Blood [facility] Platelets [#/volume] in Blood [facility] Platelets [#/volume] in Blood [facility] Platelets [#/volume] in Blood [facility] Platelets [#/volume] in Blood [facility] Platelets [#/volume] in Blood [facility] Platelets [#/volume] in Blood [facility] Potassium [Moles/vol ume] in Serum or Plasma [facility] Potassium [Moles/vol ume] in Serum or Plasma [facility] Potassium [Moles/vol ume] in Serum or Plasma [facility] [facility] Potassium [Moles/vol ume] in Serum or Plasma [facility] Potassium [Moles/vol ume] in Serum or Plasma [facility] Potassium [Moles/vol ume] in Serum or Plasma [facility] Potassium [Moles/vol ume] in Serum or Plasma [facility] Potassium [Moles/vol ume] in Serum or Plasma [facility] Red blood cell count [facility] Red blood cell count [facility] Red blood cell count [facility] Red blood cell count [facility] Red blood cell count [facility] Red blood cell count [facility] Red blood cell count [facility] Red blood cell count [facility] Red cell distributio n width determination [facility] Red cell distributio n width determination [facility] Red cell distributio n width determination [facility] Red cell distributio n width determination [facility] Red cell distributio n width determination [facility] Red cell distributio n width determination [facility] Red cell distributio n width determination [facility] Red cell distributio n width determination [facility] Respiratory pathogen s DNA and RNA panel - Respiratory specimen by KIKI with probe detection [facility] Sodium [Moles/volume ] in Serum or Plasma [facility] Sodium [Moles/volume ] in Serum or Plasma [facility] Sodium [Moles/volume ] in Serum or Plasma [facility] Sodium [Moles/volume ] in Serum or Plasma [facility] Sodium [Moles/volume ] in Serum or Plasma [facility] Sodium [Moles/volume ] in Serum or Plasma [facility] Sodium [Moles/volume ] in Serum or Plasma [facility] Sodium [Moles/volume ] in Serum or Plasma [facility] Total protein measurement [facility] Urea nitrogen [Mass/ volume] in Serum or Plasma [facility] Urea nitrogen [Mass/ volume] in Serum or Plasma [facility] Urea nitrogen [Mass/ volume] in Serum or Plasma [facility] Urea nitrogen [Mass/ volume] in Serum or Plasma [facility] Urea nitrogen [Mass/ volume] in Serum or Plasma [facility] Urea nitrogen [Mass/ volume] in Serum or Plasma [facility] Urea nitrogen [Mass/ volume] in Serum or Plasma [facility] Urea nitrogen [Mass/ volume] in Serum or Plasma [facility] [place] Immunization Date Immunization Notes Care Provider [facility] 02-23-2023 influenza, injectabl e, quadrivalent, preservative free Dr. Victor M Cochran Work Phone: [facility] 07-29-2020 Covid (Moderna) Dr. Victor M Cochran Work Phone: [facility] 07-01-2020 Covid (Moderna) Dr. Victor M Cochran Work Phone: [facility] 07-13-[address] Victor M Cochran Work Phone: [facility] 03-27-[address] Victor M Cochran Work Phone: [facility] 03-17-2014 pneumococcal conjuga te vaccine, [address] Victor M Cochran Work Phone: [facility] 03-12-2014 Influenza virus vaccine [facility] 03-12-[address] [facility] Work Phone: 03-12-2014 pneumococcal vaccine , unspecified formulation [facility] Payers Date Payer Category Payer Private Health Insurance 101 [id number] 2023 Self-pay [id number] 2006 Unknown [id number] 2005 Medicare [id number] 1940 Unknown [id number] 2.16.8 [id number] Unknown [id number] 2.16.8 [id number] Unknown [id number] 2.16.8 [id number] Unknown [id number] 2.16.8 [id number] Unknown [id number] 2.16.8 [id number] Unknown [id number] 2.16.8 [id number] Unknown [id number] 2.16.8 [id number] Unknown [id number] 2.16.8 [id number] Unknown [id number] 2.16.8 [id number] Unknown [id number] 2.16.8 [id number] Unknown [id number] 2.16.8 [id number] Unknown [id number] 2.16.8 [id number] Unknown [id number] 2.16.8 [id number] Unknown [id number] 2.16.8 [id number] Unknown [id number] 2.16.8 [id number] Unknown [id number] 2.16.8 [id number] Social History Date Type Detail Facility Start: 07-31-2014 End: 05-25-2023 Tobacco smoking status NHIS Unknown if ever smoked [facility] Start: 1940 Sex Assigned At Female [facility] Start: 07-31-2014 None [facility] Start: 07-28-2014 Alone [facility] Start: 07-31-2014 Non-smoker [facility] Start: 12-07-2023 Tobacco smoking status NHIS Never smoked tobacco (finding) [facility] Start: 10-08-2024 Sex Female (finding) [place] NEGATED: Highlighted row [facility] Goals Date Patient Goal Desired Activity /State Functional Status Date Assessment Result Facility 06-16-2023 Functional status Ambulates;Bathroom [facility] Work Phone: 06-15-2023 Functional status Tolerates Activity Fair [facility] Work Phone: 06-01-2023 Functional status Chair [facility] Work Phone: 05-31-2023 Functional status Ambulates;Bathroom [facility] Work Phone: Mental Status Date Assessment Result Facility 06-26-2023 Cognitive function Level Of Cons ciousness Awake;Alert;Appropriate [facility] Work Phone: 06-16-2023 Cognitive function Voice/Name [facility] Work Phone: 06-01-2023 Cognitive function Voice/Name [facility] Work Phone: 05-31-2023 Cognitive function Voice/Name [facility] Work Phone: 05-25-2023 Cognitive function Level Of Cons ciousness Awake;Alert;Appropriate;Follow s Commands [facility] Work Phone: Clinical Notes 01-30-2023 to 10-02-2024 Note Date & Type Note Facility 10-02-2024 Radiology Diagnostic study note [facility] Imaging Services [address] [place] [address] Cerv Spine 2 or 3 Views MR#: [id number] Acct: [id number] Name: MARTHA ENGEL Rep #: [id number] : 1940 F 84 From: Cornel Gilbert MD PCP: Dr. Victor M Cochran MD Status: REG GIOVANNI Study:Cerv Spine 2 or 3 Views Date of Exam: 10/02/24 Exam# [id number] Ordering Dr: Nora Price MD PROCEDURE: CERV SPINE 2 OR 3 VIEWS 10/02/2024 REASON FOR EXAM: SPONDYLOSIS WITHOUT MYELOPATHY OR RADICULOPATHY, CERVICAL REGION TECHNIQUE: 3 views of the cervical spine. FINDINGS: Vertebrae: No acute fracture. disc spaces: Mild disc space narrowing in the lower cervical spine consistent with degenerative disc disease. Alignment: Anatomic alignment. soft tissues: Unremarkable. Other: RAD/Cerv Spine 2 or 3 Views IMPRESSION: MILD CERVICAL DEGENERATIVE CHANGES. Disclaimer: Reading Location: [id number] CC: Dr. Mookie Price MD; Dr. Victor M Cochran MD ~ Mechanical Engineering Specialist: Signed [facility] 12-13-2023 Note [facility] Medical Records Department [address] [place] [address] Discharge Summary 12/13/23 1551 MR#: [id number] Acct: [id number] Name: MARTHA ENGEL Rep #: [id number] : 1940 83 From: Saturnino Londono MD PCP: Dr. Victor M Cochran MD Status:DIS IN Location: [facility] [id number] Providers Date of Admission: 12/08/23 Primary Care Physician: Dr. Victor M Cochran MD Consultations 12/09/23 12:39 Consult: Gastroenterology Routine Consulting Provider: [facility] Reason for Consult: GI gastritis cannot r/o malignancy poss scope monday? EMERGENT Consult: No MD Notified: Yes Date Notified: 12/09/23 Time Notified: 12:39 Method of Notification: Verbal Reason For Visit: FUO, ADULT FTT Diagnosis Discharge Diagnosis (1) Abnormal CT scan: Status: Acute Code(s): R93.89 - Abnormal findings on diagnostic imaging of other specified body structures Medications at Discharge Home Medications cholecalciferol (vitamin D3) 25 mcg (1,000 unit) tablet (Vitamin D3) 2,000 unit PO DAILY SUPPLEMENT 07/25/14 baclofen 10 mg tablet 10 mg PO QHS MUSCLE SPASMS 05/25/23 acetaminophen 500 mg tablet 1,000 mg PO BID 12/07/23 levothyroxine 25 mcg tablet 25 mcg PO DAILY 12/07/23 Hospital Course Operations None Procedures EGD Summary of Care Provided Minutes Spent on Discharge: 38 Hospital Course: Per HPI: The patient is an 83 y/o F w/ PMHx: Chronic anemia/Fe deficiency anemia, Anxiety and Depression, HTN, HLD, RA, Diabetes mellitus type II, Chronic back pain, Chronic constipation who presents to the [facility] ED on 12/07/23 with history of living alone although her daughter does help and assist with certain activities but recently on day of presentation family reports that the patient was significantly weak with difficulty even getting up out of a chair and subjectively felt warm and was mildly confused with general fatigue and malaise prompting family to bring patient in for ED evaluation. Workup in the ED included T97.4, heart 110, BP 161/97, respiratory rate 17, 97% on room air with Tmax in the ED 101.5, most recent vital signs T90.4, heart rate 100, BP 125/56, respiratory rate 20, 97% on room air, CBC with WBC 8.6, hemoglobin 11.2, MCV 96.6, platelet 293 without marked shift with lymphopenia, unremarkable coags, CMP with sodium 130, chloride 97, BUN/creatinine 12/0.82, GFR 70, glucose 282, hepatic profile not marked appearing, lactic acid 1.6, blood culture x 2 pending per ED, rapid SARS COVID/influenza/RSV negative, Chest x-ray probable residual chronic interstitial thickening the left lower lobe with interval improvement since previous exam otherwise no acute cardiopulmonary findings, urinalysis with specific gravity 1.025, protein 30, glucose of thousand, occult blood 50, negative nitrite, negative leukocyte Estrace with no evidence of UTI, urine culture pending per ED. In the ED patient ministered 1 L normal saline as well as Tylenol 650 mg p.o. x 1. Hospital Course: #Metabolic encephalopathy/Weakness -Patient awake but tired and will answer some questions -Will need to establish what patient's baseline is -Patient with one-time fever in ED, was not started on antibiotics as no bacterial infection located -It is felt that there may be some kind of viral illness -UA within normal limits, white count within normal limits, CMP unremarkable -Pro-Gio 0.29, unclear clinical significance given lack of other infectious etiology -Blood cultures pending -Did have negative respiratory panels -Interestingly ESR within normal limits, CRP was elevated at 97, will recheck these in the morning -Will DC baclofen as this could be contributing to patient being very tired and having decreased interaction today -Additionally patient was started on gabapentin which could be contributing to patient being tired and not as interactive this morning so we will discontinue and assess -Will also check folate and B12 and appears patient is on home Synthroid will check TSH and free T4 -PT/OT -12/08: Patient significantly improved today, still weak and a little bit tired but was able to answer questions appropriately, suspect there may have been underlying infection but also baclofen and gabapentin combination likely contributed 12/10/2023: She is ANO x 3 does not appear to be confused currently. Unclear as to the etiology of her fevers yesterday 12/11/2023: Remains alert and oriented x 3 and is not confused, she is not excited about the possibility of having to go to a senior living 12/12/2023: She did agree to SNF placement currently attempting pre-CERT 12/13/2023: Encephalopathy has resolved and I discussed with her the plan for discharge today and she expressed understanding of the risk and benefits of going to the senior living and is okay with going today to start her rehab. All cultures are negative and she does n (more content not included)... [facility] 06-26-2023 Procedure note [place] 06-14-2023 Discharge summary Note Date/Time June 14, 2023 7:43am [facility] Medical Records Department [address] [place] [address] Discharge Summary 06/14/23 0740 MR#: [id number] Acct: [id number] Name: MARTHA ENGEL Rep #:[id number] : 1940 83 From: Victor M Cochran MD PCP: Dr. Victor M Cochran MD Status:ADM I N Location: [place] [address] Providers Date of Admission: 05/31/23 Primary Care Physician: Dr. Victor M Cochran MD Consultations 05/31/23 17:54 Consult: Pain Management Routine Consulting Provider: Saturnino Green Reason for Consult: Compression fracture lumbar spine, lumbar spinal stenosis. EMERGENT Consult: No MD Notified: Yes Date Notified: 06/01/23 Time Notified: 08:59 Method of Notification: Verbal Reason For Visit: ADULT FTT Diagnosis Discharge Diagnosis (1) Compression fracture of lumbar spine, non-traumatic: Status: Acute Code(s): M48.56XA - Collapsed vertebra, not elsewhere classified, lumbar region, initial encounter for fracture Qualifiers: Encounter type: sequela (2) Low back pain: Status: Acute Code(s): M54.50 - Low back pain, unspecified Qualifiers: Chronicity: chronic Back pain laterality: bilateral Sciatica presence:without sciatica Qualified Code(s): M54.50 - Low back pain, unspecified; G89.29- Other chronic pain Plan 83 year old female with below past medical history hospitalized for adult failure to thrive, intractable low back pain, compression fracture lumbar spine,lumbar radiculopathy, lumbar spinal stenosis, admitted to TCU with debility, here for rehabilitation, strengthening, prior to discharge home alone. * Debility - PT/OT. * Pain - Tylenol 1000mg q8, Tramadol 50mg q6 prn pain (1-5), Oxycodone 2.5mg q4 prn pain (6-10), Lidoderm patch 1 patch daily. * Bowel - Lactulose 20gm bid. * Adult immunization - Administer pneumonia vaccine, covid vaccine, flu vaccine as appropriate. * DVT prophylaxis - Lovenox 30mg sc daily. * Muscle spasm - Baclofen 10mg qhs. * Glaucoma - Brimonidine ou bid, Timolol ou bid. * Vitamin D deficiency - D3 50mcg daily. * Diabetes Mellitus II - Jardiance 25mg daily. * Nutrition - Ensure Plus 120ml 4x/day. * Lumbar radiculopathy - Gabapentin 100mg tidcm. * Skin irritation - Calmoseptine topical bid. * Gas - Simethicone 80mg pchs. * Low back pain/compression fracture lumbar spine/right thoracolumbar radiculopathy/lumbar spinal stenosis - Consult Dr. Green to consider kyphoplasty or lumbar epidural steroid injection for more rapid relief of pain. Medications at Discharge Home Medications cholecalciferol (vitamin D3) 25 mcg (1,000 unit) tablet (Vitamin D3) 2,000 unit PO DAILY SUPPLEMENT 07/25/14 baclofen 10 mg tablet 10 mg PO QHS MUSCLE SPASMS 05/25/23 dapagliflozin propanediol 10 mg tablet (Farxiga) 10 mg PO DAILY BLOOD SUGARS 05/25/23 gabapentin 100 mg capsule 100 mg PO TIDCM Nerve pain #0 caps 05/31/23 acetaminophen 500 mg tablet 1,000 mg (2 x 500 mg) PO Q8 #0 tabs 06/14/23 brimonidine 0.2 % eye drops 1 drp EACH EYE 0600,1800 #0 mL 06/14/23 dextromethorphan-guaifenesin 10 mg-100 mg/5 mL oral syrup 10 ml PO Q6H PRN PRN COUGH #0 mL 06/14/23 food supplemt, lactose-reduced (Ensure Clear oral liquid) 120 ml PO 4X/DAY #0 mL06/14/23 lactulose 20 gram/30 mL oral solution 20 g (30 mL) PO BID #0 mL 06/14/23 lidocaine 5 % topical patch 1 patch topical DAILY #0 ea 06/14/23 menthol 0.44 %-zinc oxide 20.6 % topical ointment (Calmoseptine) 1 applic topical BID #0 grams 06/14/23 simethicone 80 mg chewable tablet 80 mg PO PCHS #0 tabs 06/14/23 timolol maleate 0.5 % eye drops 1 drp EACH EYE 0600,1800 #0 mL 06/14/23 tramadol 50 mg tablet 50 mg PO Q6H PRN PRN Pain Score 1-5 3 days #12 tabs 06/14/23 Hospital Course Operations None Procedures None Summary of Care Provided Minutes Spent on Discharge: 35 Hospital Course: 83 year old female with below past medical history hospitalized for adult failure to thrive, intractable low back pain, compression fracture lumbar spine,lumbar radiculopathy, lumbar spinal stenosis, admitted to TCU with debility, here for rehabilitation, strengthening, prior to discharge home alone. Dr. Green saw resident for back pain, 06/07/2023 resident positive covid19, noprocedures were done. Discharge to [facility] 06/16/2023, intermediate, private pay, part B therapies. Physical Exam Const alert General Appearance: cooperative HEENT normocephalic Eyes PERRL and EOMs intact bilaterally Neck supple, no JVD and no carotid bruits Resp normal respiratory effort, normal air movement and clear to auscultation bilaterally Cardio regular rate and regular rhythm GI normal to inspection, nondistended, normoactive bowel sounds, non-tender and non-distended Extremity normal capillary refill General Extremity: Negative for edema Skin no rashes or lesions noted General Skin Exam: no breakdown Psych affect normal Appearance: appropriate Medical Records Data Medical Nutrition Assessment Dietitian: Malnutrition Criteria Met Start: 06/01/23 08:52 Freq: Status: Active Protocol: Document 06/07/23 15:12 SLA (Rec: 06/07/23 15:12 SLA Desktop) Nutrition Malnutrition Evidence of Malnutrition Exists Yes Malnutrition (severe): Chronic Evidenced By Suboptimal Energy Intake ( Severe),Weight Loss (Severe), Physical Changes (Severe) Clinical Problem Chronic Disease or Condition Related Malnutrition Etiology severe, chronic malnutrition related to inadequate energy intake Signs/Symptoms as evidenced by severe muscle wasting/fat loss evident per physical exam in orbital, clavicle, acromion, and temporal areas, estimated PO intake meeting <75% of estimated energy needs > 3 months, BMI 14.7, unintentional 4% wt loss < 2 weeks 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 Weight / BMI Weight Weight: 38.82 kg Body Mass Index (BMI) 14.6 ABG / Lab / Microbiology Data 06/08/23 05:21 06/08/23 05:21 Laboratory: Laboratory Results - last 24 hr 06/14/23 04:51: POC Glucose 121 H Microbiology: Microbiology 06/07/23 09:06 Mucosa - Nasopharyngeal Coronavirus COVID-19 PCR - Final SARS-CoV-2 (COVID 19 PCR) 06/03/23 17:21 Mucosa - Nose Respiratory Panel (PCR) - Final RSV A 06/03/23 17:10 Nasal Secretion SARS-CoV-2 & FLU Antigen (Rapid) - Final SARS-CoV-2 (COVID 19) Influenzae B D/C Instructions Discharge Diet: No restrictions Discharge Activity: Return to Normal Activity, May Shower and Use Walker Weight Bearing Status: Weight bearing as tolerated Call your doctor if you observe: Fever of 101 or Higher, Inability to urinate, Inability to have a bowel movement, Shortness of breath, Dizziness, Fainting spells, Swelling in the ankles, Chest pain and Uncontrolled pain Additional Instructions: Discharge to [facility] 06/16/2023, intermediate, private pay, part B therapies. Meaningful Use Info Meaningful Use Diagnoses (Choose all that apply): None applicable Discharge Plan Admission Admit Date/Time: 05/31/23 14:10 Primary Reason for Your Visit: Debility. Attending Provider: Victor M Cochran Chi Primary Care Provider: Victor M Cochran Chi Consulting Providers: Saturnino Green Instructions Additional Instructions / Restrictions: Discharge to [facility] 06/16/2023, intermediate, private pay, part B therapies. Discharge Orders/Prescriptions Prescriptions: New dextromethorphan-guaifenesin 10-100 mg/5 mL Syrup 10 ml PO Q6H PRN PRN (Reason: COUGH) Qty: 0 0RF tramadol 50 mg Tablet 50 mg PO Q6H PRN PRN (Reason: Pain Score 1-5) 3 Days Qty: 12 0RF acetaminophen 500 mg Tablet 1,000 mg PO Q8 Qty: 0 0RF lidocaine 5 % Adhesive Patch,Medicated 1 patch topical DAILY Qty: 0 0RF Protocol: *Topical Application Instructions APPLICATION INSTRUCTIONS: Apply to back brimonidine 0.2 % Drops 1 drp EACH EYE 0600,1800 Qty: 0 0RF timolol maleate 0.5 % Drops 1 drp EACH EYE 0600,1800 Qty: 0 0RF simethicone 80 mg Tablet,Chewable 80 mg PO PCHS Qty: 0 0RF Ensure Clear Liquid 120 ml PO 4X/DAY Qty: 0 0RF menthol-zinc oxide [Calmoseptine] 0.44-20.6 % Ointment 1 applic topical BID Qty: 0 0RF Protocol: *Topical Application Instructions APPLICATION INSTRUCTIONS: Apply to buttock lactulose 20 gram/30 mL Solution 20 g PO BID Qty: 0 0RF Continued cholecalciferol (vitamin D3) [Vitamin D3] 1,000 UNIT tablet 2,000 unit PO DAILY baclofen 10 mg tablet 10 mg PO QHS Farxiga 10 mg tablet 10 mg PO DAILY gabapentin 100 mg Capsule 100 mg PO TIDCM Qty: 0 0RF Discontinued lactulose 10 gram/15 mL solution 30 ml PO BID simethicone [Gas Relief (simethicone)] 80 mg tablet,chewable 80 mg PO BID Rx Instructions: TAKE 1 TABLET BY MOUTH DAILY AFTER MEALS AND AT BEDTIME brimonidine-timolol 0.2-0.5 % drops 1 drp ophthalmic (eye) 0700,1900 acetaminophen [Tylenol Extra Strength] 500 mg tablet 1,000 mg PO BID lidocaine 5 % Adhesive Patch,Medicated 1 patch topical DAILY Qty: 0 0RF Protocol: *Topical Application Instructions APPLICATION INSTRUCTIONS: place on area of back pain tramadol 50 mg Tablet 50 mg PO TID PRN PRN (Reason: Pain Score 6-10) Qty: 0 0RF Referrals / Follow Up: Victor M Cochran Chi, MD [Primary Care Provider] - Disposition Disposition (needs filled in before D/C Order can be placed): NonSkilled NH/Intermed Care 06/14/23 0749 <Electronically signed by Victor M Cochran MD> Cosigner Signature (if applicable): CC: Dr. Victor M Cochran MD~ Signed [facility] Work Phone: 1(366) 155-786301-03-2024 Discharge summary Author Victor M Cochran [facility] June 14, 2023 7:49am Note Date/Time June 14, 2023 7: 50am [facility] Medical Records Department [address] [place] [address] Transfer to Extended Care MR#: [id number] Acct: [id number] Name: MARTHA ENGEL Rep #:[id number] : 1940 83 From: Victor M Cochran MD PCP: Dr. Victor M Cochran MD Status:ADM I N Certification of patient admission REQUIRED AT TIME OF ADMISSION. I CERTIFY THAT POST-HOSPITAL ECF SERVICES ARE REQUIRED TO BE GIVEN ON AN IN-PATIENT BASIS BECAUSE OF THE ABOVE NAMED PATIENT'S NEED FOR [facility] CARE ON A CONTINUING BASIS FOR THE CONDITION(S) FOR WHICH HE/SHE WAS RECEIVING IN-PATIENT HOSPITAL SERVICES PRIOR TO HIS/HER TRANSFER TO THE F. 06/14/23 0749<Electronically signed by Victor M Cochran MD> Diet Diet Order/Speech Therapy: 05/31/23 14:40 Diet: Regular - General Food consistency:: Regular Liquid Consistency:: Regular/Thin Diet Comments: res to order at least 3 items/meal (mashed potatoes/gravy, etccounts as 1) Routine Orders/Code Status Code Status: DNRCC-A (No intubation.) Wound(s) Right plantar: Wound Type: Callused areas Left plantar: Wound Type: Callused areas/dry right buttock: Wound Type: Pressure Injury Dressing Change: Calmoseptine Therapies Weight Bearing: Weight bearing as tolerated Extremity Affected:: Bilateral Lower Physical Therapy: Eval and Treat Occupational Therapy: Eval and Treat Problem/Diagnosis (1) Compression fracture of lumbar spine, non-traumatic: Status: Acute Code(s): M48.56XA - Collapsed vertebra, not elsewhere classified, lumbar region, initial encounter for fracture (2) Low back pain: Status: Acute Code(s): M54.50 - Low back pain, unspecified Plan 83 year old female with below past medical history hospitalized for adult failure to thrive, intractable low back pain, compression fracture lumbar spine,lumbar radiculopathy, lumbar spinal stenosis, admitted to TCU with debility, here for rehabilitation, strengthening, prior to discharge home alone. * Debility - PT/OT. * Pain - Tylenol 1000mg q8, Tramadol 50mg q6 prn pain (1-5), Oxycodone 2.5mg q4 prn pain (6-10), Lidoderm patch 1 patch daily. * Bowel - Lactulose 20gm bid. * Adult immunization - Administer pneumonia vaccine, covid vaccine, flu vaccine as appropriate. * DVT prophylaxis - Lovenox 30mg sc daily. * Muscle spasm - Baclofen 10mg qhs. * Glaucoma - Brimonidine ou bid, Timolol ou bid. * Vitamin D deficiency - D3 50mcg daily. * Diabetes Mellitus II - Jardiance 25mg daily. * Nutrition - Ensure Plus 120ml 4x/day. * Lumbar radiculopathy - Gabapentin 100mg tidcm. * Skin irritation - Calmoseptine topical bid. * Gas - Simethicone 80mg pchs. * Low back pain/compression fracture lumbar spine/right thoracolumbar radiculopathy/lumbar spinal stenosis - Consult Dr. Green to consider kyphoplasty or lumbar epidural steroid injection for more rapid relief of pain. Allergies/Procedures Done in Hospital Allergies alendronate sodium [From Fosamax] Allergy (Verified 05/25/23 14:57) Anaphylaxis Penicillins Allergy (Verified 05/25/23 14:57) Swelling Procedures: None Type of Care/Length of Stay Estimated LOS: More Than 30 Days Type of Care Needed: Intermediate Rehab Potential: Fair Prognosis: Poor Additional Orders/Day of Discharge Additional Orders: part B therapies Day of Discharge: 06/16/23 Dietary and Speech Recommendations Dietitian Recommendations/Changes: continue regular diet and 120mL ensure plus high protein 4x/day w/ medpass d/t signs/symptoms of malnutrition; rec appetite stimulant to help encourage increased po intake; encourage res to order 3 food items per meal; family to bring in food from home if desired; consider COMMISSARY REPRESENTATIVE eval if issues chewing/swallowing are evident. Discharge Plan Admission Admit Date/Time: 05/31/23 14:10 Primary Reason for Your Visit: Debility. Attending Provider: Victor M Cochran Chi Primary Care Provider: Victor M Cochran Chi Consulting Providers: Saturnino Green Instructions Additional Instructions / Restrictions: Discharge to [facility] 06/16/2023, intermediate, private pay, part B therapies. Discharge Orders/Prescriptions Prescriptions: New dextromethorphan-guaifenesin 10-100 mg/5 mL Syrup 10 ml PO Q6H PRN PRN (Reason: COUGH) Qty: 0 0RF tramadol 50 mg Tablet 50 mg PO Q6H PRN PRN (Reason: Pain Score 1-5) 3 Days Qty: 12 0RF acetaminophen 500 mg Tablet 1,000 mg PO Q8 Qty: 0 0RF lidocaine 5 % Adhesive Patch,Medicated 1 patch topical DAILY Qty: 0 0RF Protocol: *Topical Application Instructions APPLICATION INSTRUCTIONS: Apply to back brimonidine 0.2 % Drops 1 drp EACH EYE 0600,1800 Qty: 0 0RF timolol maleate 0.5 % Drops 1 drp EACH EYE 0600,1800 Qty: 0 0RF simethicone 80 mg Tablet,Chewable 80 mg PO PCHS Qty: 0 0RF Ensure Clear Liquid 120 ml PO 4X/DAY Qty: 0 0RF menthol-zinc oxide [Calmoseptine] 0.44-20.6 % Ointment 1 applic topical BID Qty: 0 0RF Protocol: *Topical Application Instructions APPLICATION INSTRUCTIONS: Apply to buttock lactulose 20 gram/30 mL Solution 20 g PO BID Qty: 0 0RF Continued cholecalciferol (vitamin D3) [Vitamin D3] 1,000 UNIT tablet 2,000 unit PO DAILY baclofen 10 mg tablet 10 mg PO QHS Farxiga 10 mg tablet 10 mg PO DAILY gabapentin 100 mg Capsule 100 mg PO TIDCM Qty: 0 0RF Discontinued lactulose 10 gram/15 mL solution 30 ml PO BID simethicone [Gas Relief (simethicone)] 80 mg tablet,chewable 80 mg PO BID Rx Instructions: TAKE 1 TABLET BY MOUTH DAILY AFTER MEALS AND AT BEDTIME brimonidine-timolol 0.2-0.5 % drops 1 drp ophthalmic (eye) 0700,1900 acetaminophen [Tylenol Extra Strength] 500 mg tablet 1,000 mg PO BID lidocaine 5 % Adhesive Patch,Medicated 1 patch topical DAILY Qty: 0 0RF Protocol: *Topical Application Instructions APPLICATION INSTRUCTIONS: place on area of back pain tramadol 50 mg Tablet 50 mg PO TID PRN PRN (Reason: Pain Score 6-10) Qty: 0 0RF Referrals / Follow Up: Victor M Cochran Chi, MD [Primary Care Provider] - Disposition Disposition (needs filled in before D/C Order can be placed): NonSkilled NH/Intermed Care (1) Compression fracture of lumbar spine, non-traumatic Qualifiers: Encounter type: sequela (2) Low back pain Qualifiers: Chronicity: chronic Back pain laterality: bilateral Sciatica presence: without sciatica Qualified Code(s): M54.50 - Low back pain, unspecified; G89.29- Other chronic pain 06/14/23 0749 <Electronically signed by Victor M Cochran MD> Cosigner Signature (if applicable): CC: Dr. Saturnino Green MD; Dr. Victor M Cochran MD ~ [facility] Work Phone: 1(216) 841-219512-21-2023 Progress note Author [facility] June 01, 2023 5:21pm Note Date/Time June 01, 2023 4:12pm [facility] Medical Records Department [address] [place] [address] Progress Note - Pharmacy 06/01/23 1555 MR#: [id number] Acct: [id number] Name: MARTHA ENGEL Rep #:[id number] : 1940 83 From: Rick Bruner PCP: Dr. Victor M Cochran MD Status:ADM I N Location: TCU [place] [address] Documented by User: Rick Bruner 06/01/23 16:12 TCU RX Drug Regimen Review Subjective/Objective Subjective/Objective: Subjective: 83 year old female with below past medical history hospitalized for adult failure to thrive, intractable low back pain, compression fracture lumbar spine, lumbar radiculopathy, lumbar spinal stenosis, admitted to TCU with debility, here for rehabilitation, strengthening, prior to discharge home alone. Objective: Allergies alendronate sodium [From Fosamax] Allergy (Verified 05/25/23 14:57) Anaphylaxis Penicillins Allergy (Verified 05/25/23 14:57) Swelling Current Medications Generic Name Dose Route Start Last Admin Trade Name Freq PRN Reason Stop Dose Admin Acetaminophen 1,000 mg 05/31/23 22:00 06/01/23 15:28 Acetaminophen 500 Mg Tablet PO 1,000 mg Q8 LYRIC Administration Baclofen 10 mg 05/31/23 22:00 05/31/23 22:07 Baclofen 10 Mg Tablet PO 10 mg QHS LYRIC Administration Brimonidine Tartrate 0 drp 05/31/23 18:00 06/01/23 06:52 Brimonidine 0.2% 5ml Bottle EACH EYE 1 drp 0600,1800 LYRIC Administration Calamine/Phenol 1 applic 05/31/23 22:00 06/01/23 11:47 Menthol/Lanolin/Calamine/Znox 113 Gm Tube TOPICAL 1 applic BID [facility] Administration Protocol Cholecalciferol 50 mcg 06/01/23 10:00 06/01/23 09:04 Cholecalciferol (Vit D3) 25 Mcg Tablet (1,000 Units) PO 50 mcg DAILY LYRIC Administration Empagliflozin 25 mg 06/01/23 10:00 06/01/23 09:03 Empagliflozin 25 Mg Tablet PO 25 mg DAILY LYRIC Administration Enoxaparin Sodium 30 mg 06/01/23 06:00 06/01/23 06:52 Enoxaparin 30 Mg/0.3 Ml Syringe SC 30 mg 0600 LYRIC Administration Gabapentin 100 mg 05/31/23 17:45 06/01/23 13:38 Gabapentin 100 Mg Capsule PO 100 mg TIDCM LYRIC Administration Lactulose 20 gm 05/31/23 22:00 06/01/23 09:03 Lactulose 20 Gm/30 Ml Udc PO 20 gm BID LYRIC Administration Lidocaine 1 patch 06/01/23 10:00 06/01/23 09:04 Lidocaine 5% Patch TOPICAL 1 patch DAILY [facility] Administration Protocol Nutritional Formula (Lactose Free) 120 ml 05/31/23 17:00 06/01/23 11:53 Ensure Plus High Protein 120 Ml Liquid PO 120 ml 4X/DAY LYRIC Administration Oxycodone HCl 2.5 mg 05/31/23 20:12 06/01/23 13:39 Oxycodone 5 Mg Tablet PO 2.5 mg Q4H PRN PRN Administration Pain Score 6-10 Simethicone 80 mg 05/31/23 18:00 06/01/23 13:38 Simethicone 80 Mg Chewable Tablet PO 80 mg PCHS LYRIC Administration Sodium Chloride 10 - 40 ml 05/31/23 14:44 05/31/23 22:14 0.9% Saline Lock 10 Ml Syringe IV 10 ml UD PRN Administration SALINE FLUSH Sodium Chloride 10 - 40 ml 05/31/23 14:49 0.9% Saline Lock 10 Ml Syringe IV UD PRN SALINE FLUSH Timolol Maleate 0 drp 05/31/23 18:00 06/01/23 06:52 Timolol 0.5% 5ml Opth.Btl EACH EYE 1 drp 0600,1800 LYRIC Administration Tramadol HCl 50 mg 05/31/23 20:13 06/01/23 15:28 Tramadol 50 Mg Tablet PO 50 mg Q6H PRN PRN Administration Pain Score 1-5 Tuberculin PPD 0.1 ml 06/08/23 10:00 Tuberculin,Purif.Prot.Deriv. 50 Tu/Ml Vial ID 06/08/23 10:01 X1 ONE Problem List (Updated 06/01/23 @ 11:[address] Saturnino Green MD) Glaucoma (Acute) Muscle spasm (Acute) Diabetes (Acute) Fecal impaction of colon (Acute) Lumbar radiculopathy (Acute) Compression fracture of lumbar spine, non-traumatic (Acute) Low back pain (Acute) Multiple falls (Acute) Debility (Acute) Adult failure to thrive (Acute) Rheumatoid arthritis (Chronic) Vital Signs Temp Pulse Resp BP Pulse Ox O2 Del Method 97.8 F 100 14 134/66 H 94 Room Air 06/01/23 14:45 06/01/23 14:45 06/01/23 14:45 06/01/23 14:45 06/01/23 14:45 06/01/23 14:45 Oxygen Delivery Method Room Air Weight: 38.82 kg Body Mass Index (BMI) 14.6 Sodium 140 mmol/L (136-145) 06/01/23 05:13 Potassium 4.2 mmol/L (3.5-5.1) 06/01/23 05:13 Chloride 101 mmol/L (98-107) 06/01/23 05:13 Carbon Dioxide 34.0 mmol/L (21.0-32.0) H 06/01/23 05:13 Anion Gap 5 (5-15) 06/01/23 05:13 BUN 13 mg/dL (7-18) 06/01/23 05:13 Creatinine 0.59 mg/dL (0.55-1.02) 06/01/23 05:13 Est GFR (MDRD) Af Amer 125 mL/min (>60) 06/01/23 05:13 Est GFR (MDRD) Non-Af 103 mL/min (>60) 06/01/23 05:13 BUN/Creatinine Ratio 22.0 RATIO (10-20) H 06/01/23 05:13 Glucose 277 mg/dL (74-106) H 06/01/23 05:13 Assessment/Plan: 1. Pain: acetaminophen 1000 mg PO Q8H, tramadol 50 mg PO Q6H PRN pain (1-5), oxycodone 2.5 mg PO Q4H PRN pain (6-10), lidocaine 5% 1 patch topically daily. The patient has used 3 doses of oxycodone and 2 doses of tramadol so far this admission. Please continue to monitor pain levels, PRN medication usage, LFTs (AST/ALT = 14/18 U/L on 05/26/23), for respiratory depression, for drowsiness, for dizziness, syncope, ataxia, falls, rash, and renal function (serum creatinine = 0.59 mg/dL with creatinine clearance ~ 26 on 06/01/23). 2. Bowel: lactulose 20 grams PO BID. The patient's last bowel movement is documented on 05/2023. Please continue to monitor for diarrhea and constipation. 3. Diabetes Mellitus II: empagliflozin 25 mg PO daily. Please continue to monitor blood glucose levels (BG = 277 mg/dL on 06/01/23), hemoglobin A1C (A1C = 6.9% on 07/26/14), GFR (GFR = ~103 mL/min on 06/01/23), for urinary tract infections, for dehydration, and for ketosis. The patient's last two blood glucose readings on their labs have been elevated, and the patient's A1C is out of date. Please consider adding an additional agent for blood glucose control such as metformin 1000 mg PO BID, or a sliding scale rapid acting insulin TID with meals. The patient also has not had an A1C within 3 months, please considerre-ordering a hemoglobin A1C. 4. DVT prophylaxis: enoxaparin 30 mg SC daily. Please continue to monitor for s/s of a DVT such as lower extremity swelling/pain/erythema, for bleeding/excessive bruising, hemoglobin levels (Hgb =12.0 g/dL on 06/01/23), platelet count (Plt = 376 K/mm3 on 06/01/23), as well as renal function (serum creatinine = 0.59 mg/dL with creatinine clearance ~ 26 on 06/01/23). 5. Muscle spasm/lumbar radiculopathy: baclofen 10 mg PO QHS, gabapentin 100 mg PO TID with meals. Please continue to monitor for muscle spasms, nerve pain, forsedation, confusion, nausea/vomiting, for lower extremity edema, and for SI. 6. Glaucoma: timolol 0.5% 1 drop in each eye BID, brimonidine 1 drop in each eyeBID. Please continue to monitor eye health, for blurred vision, for stinging/burning in the eyes, for drowsiness, and blood pressures. 7. Vitamin D deficiency: cholecalciferol 50 mcg PO daily. Please continue to monitor for s/s of vitamin D deficiency as well as vitamin D levels (vitamin D =59.7 on 05/25/23). 8. Gas: simethicone 80 mg PO PCHS. Please continue to monitor for effectiveness of simethicone. 9. Nutrition: ensure plus high protein 120 mL PO 4x/day. Please continue to monitor overall nutritional status. 10. Skin irritation: calmoseptine 1 application topically BID. Please continue to monitor for skin irritation and skin integrity. Assessment/Plan for indications treated with psychotropic medications: NA Medical chart and medication regimen reviewed. The following medication irregularities or issues were identified: 1. Diabetes Mellitus II: empagliflozin 25 mg PO daily. The patient's last two blood glucose readings on their labs have been elevated, and the patient's A1C is out of date. Please consider adding an additional agent for blood glucose control such as metformin 1000 mg PO BID, or a sliding scale rapid acting insulin TID with meals. The patient also has not had an A1C within 3 months, please consider re-ordering a hemoglobin A1C. Date Date of Note:: 06/01/23 Documented by User: Dr. Victor M Cochran MD 06/01/23 17:21 TCU RX Drug Regimen Review Provider Comments Provider responsibility Provider Comments to Recommendations by Pharmacy: Agree 06/01/23 1612 <Electronically signed by Rick Bruner> Rick Bruner Cosigner Signature (if applicable): 06/01/23 1721 <Electronically signed by Victor M Cochran MD> CC: ~ Signed [facility] Work Phone: 1(185) 356-295812-21-2023 Consult note Author Saturnino Green [facility] June 01, 2023 11:22am Note Date/Time June 01, 2023 10:59am [facility] Medical Records Department [address] [place] [address] Consultation 06/01/23 1044 MR#: [id number] Acct: [id number] Name: MARTHA ENGEL Rep #:[id number] : 1940 83 From: aSturnino modi MD PCP: Dr. Victor M Cochran MD Status:ADM I N Location: [place] [address] Assessment & Plan Assessment/Plan (1) Compression fracture of lumbar spine, non-traumatic: QUALIFIERS: Encounter type: sequela PLAN: - L3 Kyphoplasty with Dr. Price has already been submitted and awaiting insurance approval. - I will submit for AMEEI as she has prior L1-L2 75% relief for a number of weeksand since we are planning for L3 kyphoplasty I will target either L2-L3 or L1- [id number] upon the fluoroscopic imaging. Additionally, this should provide somerelief as we await the kyphoplasty as she has been admitted for failure to thrive largely in the setting of limited functional mobility due to pain. Thiswill need to be approved by insurance. -Prophylactic lovenox will need to be held 12 hours prior to the injection. (2) Low back pain: QUALIFIERS: Back pain laterality: bilateral Chronicity: chronic Sciatica presence: without sciatica Qualified Code(s): M54.50 - Low back pain, unspecified; G89.29 - Other chronic pain PLAN: She is currently being managed with -Tramadol 50mg QID PRN -Oxycodone 2.5mg Q4hr PRN -Tylenol 1000mg Q8hr -Baclofen 10mg QHS It appears she has not been taking all of the PRN medications, so she has room to fill there. Due to age, I am hesitant to start her on NSAID medications, although she does have normal creatinine. HPI Consult Data Date of Consult: 06/01/23 HPI Narrative Reason for Consultation: HPI Narrative: Martha Engel has a pmh of rheumatoid arthritis, significant spondylosis of the lumbar spine, multiple compression fractures and spinal stenosis.? She follows with Dr. Price and is currently awaiting insurance approval for L3 kyphoplasty as an outpatient.? She was admitted to the hospital for failure to thrive in thesetting of significant back pain.? She states that she has also had falls, most recently 3- 4 weeks ago, but she is unable to recall specifics.? ? She describes her pain as in the mid to low back the radiation to the flanks.? She denies significant pain in the lower extremities nor buttock.? The pain is worsened with movement and improves with rest. She has been taking a number of pain medications including Baclofen, tylenol, tramadol and oxycodone.? She says she is unsure exactly how much relief she gets from each perspective medication,but it does feel that the oxycodone helps for a bit.? She has been taking 2.5mg per dose.? She previously underwent L1-L2 LESI with 75% relief for a number of weeks.? Significant amount of her current pain is similar to the pain that she had at that time.? She rates the pain as seven out of 10 in severity. She has been taking norco 5-325 1/2 tab as needed up to 4 times a day per OARRS at home. [facility] Medical History (Updated 06/01/23 @ 11:[address] Saturnino Green MD) Diabetes High cholesterol Iron deficiency anemia Osteoarthritis Rheumatoid arthritis Home Medications cholecalciferol (vitamin D3) 25 mcg (1,000 unit) tablet (Vitamin D3) 2,000 unit PO DAILY SUPPLEMENT 07/25/14 [History Last Taken 05/31/23] acetaminophen 500 mg tablet (Tylenol Extra Strength) 1,000 mg PO BID BACK PAIN 05/25/23 [History Last Taken 05/25/23] baclofen 10 mg tablet 10 mg PO QHS MUSCLE SPASMS 05/25/23 [History Last Taken 05/30/23] brimonidine 0.2 %-timolol 0.5 % eye drops 1 drp ophthalmic (eye) 0700,1900 GLAUCOMA 05/25/23 [History Last Taken 05/25/23] dapagliflozin propanediol 10 mg tablet (Joshuaxiga) 10 mg PO DAILY BLOOD SUGARS 05/25/23 [History Last Taken 05/31/23] lactulose 10 gram/15 mL oral solution 30 ml PO BID BOWELS 05/25/23 [History Last Taken 05/25/23] simethicone 80 mg chewable tablet (Gas Relief (simethicone)) 80 mg PO BID GAS RELIEF 05/25/23 [History Last Taken 05/31/23] gabapentin 100 mg capsule 100 mg PO TIDCM Nerve pain #0 caps 05/31/23 [Rx Last Taken 05/31/23] lidocaine 5 % topical patch 1 patch topical DAILY Pain #0 ea 05/31/23 [Rx Last Taken 05/31/23] tramadol 50 mg tablet 50 mg PO TID PRN PRN Pain Score 6-10 #0 tabs 05/31/23 [Rx Last Taken 05/31/23 02:20] Allergy/AdvReac Type Severity Reaction Status Date / Time alendronate sodium Allergy Anaphylaxis Verified 05/25/23 14:57 [From Fosamax] Penicillins Allergy Swelling Verified 05/25/23 14:57 Family History Mother Alzheimer disease Father Myocardial infarction Hypertension Heart disease CAD (coronary artery disease) Surgical History History of surgery on arm S/P ORIF (open reduction internal fixation) fracture Social History household members: none Smoking Status: Never smoker alcohol intake: never substance use type: does not use Physical Exam Narrative Thin. Lumbar: She has lumbar tenderness with palpation along the spine and paraspinousmuscles worse with extension. She has pain with percussion over the lumbar region L3. SLR negative for radicular pain. No significant SI tenderness. DTR within normal limits She has tenderness in the flank musculature as well. Const alert, oriented x3 and no apparent distress General Appearance: cooperative HEENT normocephalic Eyes EOMs intact bilaterally Resp normal respiratory effort Psych affect normal Appearance: appropriate Vital Signs/Image Vital Signs/Narrative: Vital Signs O2 Del Method 06/01/23 09:48 Room Air Vital Signs/Image Vital Signs/Narrative: Vital Signs O2 Del Method 06/01/23 09:48 Room Air Medical Records Data Medical Nutrition Assessment Dietitian: Malnutrition Criteria Met Start: 06/01/23 08:52 Freq: Status: Active Protocol: Document 06/01/23 08:52 AG (Rec: 06/01/23 08:53 [id number]) Nutrition Malnutrition Evidence of Malnutrition Exists Yes Malnutrition (severe): Chronic Evidenced By Suboptimal Energy Intake ( Severe),Weight Loss (Severe), Physical Changes (Severe) Clinical Problem Chronic Disease or Condition Related Malnutrition Etiology severe, chronic malnutrition related to inadequate energy intake Signs/Symptoms as evidenced by severe muscle wasting/fat loss evident per physical exam in orbital, clavicle, acromion, and temporal areas, estimated PO intake meeting <75% of estimated energy needs > 3 months, BMI 14.7, unintentional 4% wt loss < 2 weeks Status Active Problem Recommendation Dietitian Recommendations/Changes continue regular diet and 120mL ensure plus high protein 4x/day w/ medpass given evidence of malnutrition; consider COMMISSARY REPRESENTATIVE eval if issues chewing/swallowing are evident . Lab / Micro Data 06/01/23 05:13 06/01/23 05:13 Labs: Laboratory Results - last 24 hr 06/01/23 05:13: WBC 6.6, RBC 3.79 L, Hgb 12.0, Hct 38.9, MCV 102.6 H, MCH 31.7, MCHC 30.8 L, RDW Std Deviation 53.2 H, RDW Coeff of Ed 14.0, Plt Count 376, MPV8.5, Immature Gran % (Auto) 0.300, Neut % (Auto) 74.2 H, Lymph % (Auto) 13.8 L, [place] % (Auto) 5.9, Eos % (Auto) 5.3 H, Baso % (Auto) 0.5, Absolute Neuts (auto) 4.9, Absolute Lymphs (auto) 0.91, Nucleated RBC % 0, Sodium 140, Potassium 4.2, Chloride 101, Carbon Dioxide 34.0 H, Anion Gap 5, BUN 13, Creatinine 0.59, EstimCreat Clear Calc 26.12, Est GFR (MDRD) Af Amer 125, Est GFR (MDRD) Non-Af 103, BUN/Creatinine Ratio 22.0 H, Glucose 277 H, Calcium 8.8 Imagaing 05/25/2023 CT lumbar spine: Multilevel chronic wedge deformities without definitive evidence for acute fracture. Spinal stenosis at L4-5 more pronounced on the left secondary to bulging disc and facet arthropathy 06/01/23 1122 <Electronically signed by Saturnino Green MD> Cosigner Signature (if applicable): CC: Dr. Saturnino Green MD; Dr. Victor M Cochran MD~ Signed [facility] Work Phone: 1(746) 624-689812-20-2023 History and physical note Author [facility] May 31, 2023 8:11pm Note Date/Time May 31, 2023 8:05pm [facility] Medical Records Department [address] [place] [address] History & Physical Exam 05/31/231955 MR#: [id number] Acct: [id number] Name: MARTHA ENGEL Rep #:[id number] : 1940 83 From: Victor M Cochran MD PCP: Dr. Victor M Cochran MD Status:ADM I N Location: [place] [address] HPI - General General Date of Admission: 05/31/23 Date of Service: 05/31/23 Chief Complaint: Here for rehabilitation. HPI Narrative 05/25/2023 MARTHA ENGEL, is a 83 F who presents to [facility] ED with FTT. FTT, falls, right thoracic back pain. Unable to care for self. Brother, [id number] live 1/4 mile away, unable to care for patient anymore. CT abdomen/pelvis showed ileus, fecal impaction. Chest X-ray showed interstitial changes. CT lumbar spine multi chronic compression fractures, left L4-L5 disc bulge, facet arthropathy. Doppler right lower extremity negative DVT. 05/25/2023 Admit to Hospital. covid +, influenza b +. PT/OT for debility. Dr. Price kyphoplasty for compression fracture as outpatient. Golytely, enema for constipation. 05/26/2023 Comfortable, no BM, weak. Ensure for malnutrition. Lactulose for constipation. covid, influenza b false positive. 05/27/2023 Feels cold, requiring several blankets. 2 soft BM's yesterday. Pre-CERT for SNF. 05/28/2023 Low back pain, Tramadol, Lidoderm helpful. Repeat covid negative, repeat flu B negative. Dr. Price for low back pain. 05/29/2023 Gabapentin helpful. 05/30/2023 Pain little better. 05/31/2023 Admit to TCU with debility, here for rehabilitation, strengthening, prior to discharge home alone. [facility] Medical History (Updated 05/31/23 @ 20:[address] Victor M Cochran MD) Diabetes High cholesterol Iron deficiency anemia Osteoarthritis Rheumatoid arthritis Home Medications cholecalciferol (vitamin D3) 25 mcg (1,000 unit) tablet (Vitamin D3) 2,000 unit PO DAILY SUPPLEMENT 07/25/14 [History Last Taken 05/31/23] acetaminophen 500 mg tablet (Tylenol Extra Strength) 1,000 mg PO BID BACK PAIN 05/25/23 [History Last Taken 05/25/23] baclofen 10 mg tablet 10 mg PO QHS MUSCLE SPASMS 05/25/23 [History Last Taken 05/30/23] brimonidine 0.2 %-timolol 0.5 % eye drops 1 drp ophthalmic (eye) 0700,1900 GLAUCOMA 05/25/23 [History Last Taken 05/25/23] dapagliflozin propanediol 10 mg tablet (Farxiga) 10 mg PO DAILY BLOOD SUGARS 05/25/23 [History Last Taken 05/31/23] lactulose 10 gram/15 mL oral solution 30 ml PO BID BOWELS 05/25/23 [History Last Taken 05/25/23] simethicone 80 mg chewable tablet (Gas Relief (simethicone)) 80 mg PO BID GAS RELIEF 05/25/23 [History Last Taken 05/31/23] gabapentin 100 mg capsule 100 mg PO TIDCM Nerve pain #0 caps 05/31/23 [Rx Last Taken 05/31/23] lidocaine 5 % topical patch 1 patch topical DAILY Pain #0 ea 05/31/23 [Rx Last Taken 05/31/23] tramadol 50 mg tablet 50 mg PO TID PRN PRN Pain Score 6-10 #0 tabs 05/31/23 [Rx Last Taken 05/31/23 02:20] Allergy/AdvReac Type Severity Reaction Status Date / Time alendronate sodium Allergy Anaphylaxis Verified 05/25/23 14:57 [From Fosamax] Penicillins Allergy Swelling Verified 05/25/23 14:57 Family History Mother Alzheimer disease Father Myocardial infarction Hypertension Heart disease CAD (coronary artery disease) Surgical History History of surgery on arm S/P ORIF (open reduction internal fixation) fracture Social History household members: none Smoking Status: Never smoker alcohol intake: never substance use type: does not use ROS Constitutional Constitutional: Denies chills, fever(s) or weight gain ENT HEENT: Denies headache(s), nasal congestion or nasal discharge Cardiovascular Cardiovascular: Denies chest pain or palpitations Respiratory/Chest Respiratory/Chest: Denies cough, excessive phlegm production or shortness of breath with exertion Gastrointestinal Gastrointestinal: Denies abdominal pain, nausea or vomiting Genitourinary Genitourinary: Denies dysuria Musculoskeletal Musculoskeletal: Reports back pain; Denies joint pain or joint swelling Integumentary Integumentary: Denies rash or wounds Neurologic Neurologic: Denies focal weakness, numbness or tingling Psychiatric Psychiatric: Denies anxiety, auditory hallucinations, depression, homicidal ideation or suicidal ideation Vital Signs Vital Signs Vital Signs: 05/31/23 14:25 05/31/23 14:25 Temperature 99.1 F Temperature Source Temporal Pulse Rate 92 Pulse Rhythm Regular Pulse Strength Normal (2+) Respiratory Rate 14 16 Respiratory Effort Normal Non-Labored Respiratory Depth Normal Respiratory Pattern Normal Blood Pressure 133/67 H Blood Pressure Mean 89 Blood Pressure Source Monitor Blood Pressure Position Semi-Fowlers Blood Pressure Location Right Arm Pulse Ox 92 Oxygen Delivery Method Room Air Room Air Weight Weight: 38.82 kg Body Mass Index (BMI) 14.6 Physical Exam Const alert General Appearance: cooperative HEENT normocephalic Eyes PERRL and EOMs intact bilaterally Neck supple, no JVD and no carotid bruits Resp normal respiratory effort, normal air movement and clear to auscultation bilaterally Cardio regular rate and regular rhythm GI normal to inspection, nondistended, normoactive bowel sounds, non-tender and non-distended Extremity normal capillary refill General Extremity: Negative for edema Skin no rashes or lesions noted General Skin Exam: no breakdown Psych affect normal Appearance: appropriate Assessment & Plan Assessment/Plan (1) Debility: (2) Adult failure to thrive: (3) Multiple falls: (4) Low back pain: (5) Compression fracture of lumbar spine, non-traumatic: (6) Lumbar radiculopathy: (7) Fecal impaction of colon: (8) Diabetes: (9) Muscle spasm: (10) Glaucoma: (11) Rheumatoid arthritis: PLAN: Plan 83 year old female with below past medical history hospitalized for adult failure to thrive, intractable low back pain, compression fracture lumbar spine,lumbar radiculopathy, lumbar spinal stenosis, admitted to TCU with debility, here for rehabilitation, strengthening, prior to discharge home alone. * Debility - PT/OT. * Pain - Tylenol 1000mg q8, Tramadol 50mg q6 prn pain (1-5), Oxycodone 2.5mg q4 prn pain (6-10), Lidoderm patch 1 patch daily. * Bowel - Lactulose 20gm bid. * Adult immunization - Administer pneumonia vaccine, covid vaccine, flu vaccine as appropriate. * DVT prophylaxis - Lovenox 30mg sc daily. * Muscle spasm - Baclofen 10mg qhs. * Glaucoma - Brimonidine ou bid, Timolol ou bid. * Vitamin D deficiency - D3 50mcg daily. * Diabetes Mellitus II - Jardiance 25mg daily. * Nutrition - Ensure Plus 120ml 4x/day. * Lumbar radiculopathy - Gabapentin 100mg tidcm. * Skin irritation - Calmoseptine topical bid. * Gas - Simethicone 80mg pchs. * Low back pain/compression fracture lumbar spine/right thoracolumbar radiculopathy/lumbar spinal stenosis - Consult Dr. Green to consider kyphoplasty or lumbar epidural steroid injection for more rapid relief of pain. 05/31/232010 <Electronically signed by Victor M Cochran MD> Cosigner Signature (if applicable): CC: Dr. Vcitor M Cochran MD~ Signed [facility] Work Phone: [phone]) 984-502512-14-2023 Discharge summary Author Raj De La Rosa [facility] May 25, 2023 7:48pm Note Date/Time May 25, 2023 3:05pm [facility] Medical Records Department [address] [place] [address] Emergency Department Summary 05/25/23 MR#: [id number] Acct: [id number] Name: MARTHA ENGEL Rep #:[id number] : 1940 83 From: Raj Kennedy PCP: Dr. Victor M Cochran MD Status:REG E R Location: ED HPI History of Present Illness Chief Complaint: General Illness [facility] Medical History (Updated 05/25/23 @ 19:[address] Gogo Browne MD) Diabetes High cholesterol Iron deficiency anemia Osteoarthritis Rheumatoid arthritis Home Medications atorvastatin 40 mg tablet 40 mg PO QHS CHOLESTEROL 07/25/14 [History Last Taken 07/24/14 18:00] calcium carbonate 600 mg calcium (1,500 mg) tablet (Caltrate 600) 600 mg PO DAILY SUPPLEMENT 07/25/14 [History Last Taken 07/24/14 08:00] cholecalciferol (vitamin D3) 25 mcg (1,000 unit) tablet (Vitamin D3) 2,000 unit PO DAILY SUPPLEMENT 07/25/14 [History Last Taken 07/24/14 08:00] leflunomide 10 mg tablet (Arava) 10 mg PO DAILY RHEUMATOID ARTHRITIS 07/25/14 [History Last Taken 07/24/14 08:00] kyoiasexyyiy-Hn-xrtp-minerals (Multiple Vitamin, Womens tablet) 1 ea PO DAILY HEALTH MAINTENANCE 07/25/14 [History Last Taken 07/24/14 08:00] iron aspgl and ps cmplx 150 mg-vit C 50 mg-succinic acid 50 mg capsule (Ferrex) 150 mg (1.5 x 150-50-50 mg) PO DAILYCM SUPPLEMENT #30 caps 08/06/14 [Rx Last Taken Unknown] baclofen 10 mg tablet 10 mg PO QHS MUSCLE SPASMS 05/25/23 [History Last Taken Unknown] brimonidine 0.2 %-timolol 0.5 % eye drops 1 drp ophthalmic (eye) BID GLAUCOMA 05/25/23 [History Last Taken Unknown] dapagliflozin propanediol 10 mg tablet (Farxiga) 10 mg PO DAILY BLOOD SUGARS 05/25/23 [History Last Taken Unknown] glimepiride 2 mg tablet 2 mg PO DAILY BLOOD SUGARS 05/25/23 [History Last Taken Unknown] lactulose 10 gram/15 mL oral solution 30 ml PO BID LIVER 05/25/23 [History Last Taken Unknown] simethicone 80 mg chewable tablet (Gas Relief (simethicone)) 80 mg PO 4X/DAY GASRELIEF 05/25/23 [History Last Taken Unknown] Allergy/AdvReac Type Severity Reaction Status Date / Time alendronate sodium Allergy Anaphylaxis Verified 05/25/23 14:57 [From Fosamax] Penicillins Allergy Swelling Verified 05/25/23 14:57 Family History (Updated 05/25/23 @ 19:[address] Gogo Browne MD) Mother COPD (chronic obstructive pulmonary disease) Surgical History (Updated 05/25/23 @ 19:[address] Gogo Browne MD) History of surgery on arm S/P ORIF (open reduction internal fixation) fracture Social History (Updated 05/25/23 @ 19:[address] Gogo Browne MD) household members: none Smoking Status: Never smoker alcohol intake: never substance use type: does not use EXAM Physical Exam Const Vital Signs: 05/25/23 14:57 05/25/23 15:21 05/25/23 17:16 Temperature 98.6 F Temperature Source Temporal Pulse Rate 94 80 Respiratory Rate 16 16 Respiratory Effort Normal Respiratory Pattern Normal Blood Pressure 143/77 H 164/87 H Blood Pressure Mean 99 112 Pulse Ox 100 94 Oxygen Delivery Method Room Air Room Air 05/25/23 18:43 Temperature 98.4 F Temperature Source Oral Pulse Rate 84 Respiratory Rate 18 Respiratory Effort Respiratory Pattern Blood Pressure 164/92 H Blood Pressure Mean 116 Pulse Ox 94 Oxygen Delivery Method Room Air MDM MDM MDM Narrative Medical decision making narrative: HISTORY OF PRESENT ILLNESS: 83-year-old female presents with concern for diffuse weakness and inability to thrive at home. She is accompanied by her family members who states she lives at home alone and did not feel safe with her being in this environment given herprogressive weakness, weight loss. They note she has had chronic back and rightflank pain. States not get around well at home. She has been progressively losing weight getting weaker. Patient denies any cough, fever, runny nose, chills, sick contacts. They state they have been following with Dr. Cochran who last saw her at the end of March. I spoke to Dr. Goodrich on the phone who recommended her being admitted for placement. Patient denies having constipation. Notes have bowel yesterday and a full bowel movement over the weekend. REVIEW OF SYSTEMS: Pertinent positives: Weakness, right flank pain/back pain, urinary frequency Pertinent negatives: Cough, confusion, fever, chest pain, shortness of breath, focal weakness PHYSICAL EXAM: Nursing triage notes reviewed, Vital signs reviewed Constitutional: please see mdm HENT: MMM Eyes: Pupils equal round and reactive to light, Extraocular muscles intact Neck: No stridor, no JVD, full neck ROM Lungs: Clear to auscultation, No wheezing or rales. No increased work of breathing, no conversational dyspnea, no accessory muscle use, no nasal flaring. No respiratory distress noted Heart: Regular rate and rhythm, No murmurs, No rubs and No gallops, 2+ distal pulses (radial, femoral, posterior tibial) in all extremities Abdomen: Soft, there is no tenderness, rigidity, rebound or guarding, no obviousperitoneal signs, no palpable pulsatile abdominal masses, no auscultated abdominal bruit : No CVAT Extremities: No edema Neuro: No focal neurological deficits, cranial nerves II through XII intact, 5/5strength in all extremities. Intact sensation to light touch in all extremities,2+ reflexes bilateral patella tendons. No ataxia. Skin: No rash or lesions noted MEDICAL DECISION MAKING: Chief Complaint: Weakness External records reviewed: No recent ED visits or hospitalizations Factors affecting care: Type 2 diabetes, hyperlipidemia rheumatoid arthritis Social determinants of health: None History obtained from others: Family Consults: Internal medicine MDM Narrative: Patient presents hemodynamically stable, afebrile and nontoxic-appearing. Exam with frail-appearing elderly female with TTP over right flank and right abdomen. There is also TTP over lower lumbar spine. No peritoneal signs. There are no focal deficits. I considered the following differential diagnosis: Arrhythmia, dehydration, electrolyte disturbance, anemia, UTI ALL IMAGES (IF OBTAINED) HAVE BEEN PERSONALLY REVIEWED AND INTERPRETED BY MYSELF. CBC without significant leukocytosis or anemia or thrombocytopenia BMP without evidence of significant electrolyte abnormalities, no anion gap, no acute kidney injury. Not elevated consistent with likely dehydration rather than endorgan hypoperfusion High-sensitivity troponin is negative, no evidence of myocardial ischemia x 2 Lipase is wnl indicating no pancreatic inflammation. Urinalysis shows no evidence of urinary inflammation suggestive of UTI CT scans as below Patient CT of the abdomen pelvis showed evidence of possible fecal impaction thepatient notes having regular bowel movements which makes this unlikely. There is no sign of acute DVT via prelim read by angio technologist. Will not start anticoagulation at this time. The synthesis of the patient's history, physical exam labs imaging studies suggest no acute life-limiting etiology however given the patient advanced age, family concerned about her failure to thrive she will be admitted for PT OT, evaluation for possible placement. The patient and/or family, caregivers express understanding. The patient and/orfamily, caregivers agrees with the plan. Shared decision making: I will have a discussion with the patient and or visitors regarding risk/benefits of further testing or admission. They will be made aware of of the risk/benefits inherent in this decision they will be given the opportunity to voice understanding. Total critical care time today provided was at least 0 [] minutes. This excludes separately billable procedures. Critical care time (if documented) is secondary to the patient having high probability of clinically significant/life threatening deterioration in the patient's condition which required my urgent intervention. Impression: 1. Adult failure to thrive 2. Diffuse weakness 3. Glucosuria 4. Hematuria 5. Elevated lactate 6. Influenza B 7. COVID-19 Dispo: Admit to [facility] Lab Data Labs: Laboratory Results - last 24 hr 05/25/23 05/25/23 15:37 18:05 WBC 9.1 RBC 4.01 L Hgb 12.7 Hct 42.2 MCV 105.2 H MCH 31.7 MCHC 30.1 L RDW Std Deviation 52.9 H RDW Coeff of Ed 13.7 Plt Count 367 MPV 8.2 Immature Gran % (Auto) 0.400 Neut % (Auto) 71.6 H Lymph % (Auto) 14.5 L [place] % (Auto) 10.0 Eos % (Auto) 2.8 Baso % (Auto) 0.7 Absolute Neuts (auto) 6.5 Absolute Lymphs (auto) 1.32 Nucleated RBC % 0 Sodium 137 Potassium 4.4 Chloride 104 Carbon Dioxide 29.0 Anion Gap 4 L BUN 14 Creatinine 0.71 Estim Creat Clear Calc 25.94 Est GFR (MDRD) Af Amer 100 Est GFR (MDRD) Non-Af 83 BUN/Creatinine Ratio 19.6 Glucose 135 H Lactic Acid 2.1 H* Calcium 9.2 Total Bilirubin 0.40 AST 23 ALT 19 Alkaline Phosphatase 81 Troponin I High Sens 14 15 Total Protein 7.0 Albumin 2.6 L Globulin 4.4 H Albumin/Globulin Ratio 0.6 L Lipase 33 Urine Color Yellow Urine Clarity Clear Urine pH 7.0 Ur Specific [place] 1.015 Urine Protein 15 H Urine Glucose (UA) 1000 H Urine Ketones 50 H Urine Occult Blood 10 H Urine Nitrite Negative Urine Bilirubin Negative Urine Urobilinogen Normal Ur Leukocyte Esterase Negative Urine RBC 0 SEEN Urine WBC 0-5 SEEN Ur Squamous Epith Cells 0-5 SEEN Urine Bacteria RARE Urine Mucus 0 SEEN Radiography Diagnostic Testing: Clinical Impression(s) from Imaging Studies Abdomen/Pelvis CT 05/25/23 15:26 IMPRESSION: Limited visualization of the bowel due to lack of opacification with contrast and lack of fat. Nonspecific ileus with fecal retention and rectal impaction. Incidental finding of hypoattenuated density within the right common femoral vein possibly representing thrombus. Recommend Doppler scanning of the groin and possibly right lower extremity for more definitive evaluation if indicated Electronically Signed: Santy Wiley MD at 17:28 EST , Lumbar Spine CT 05/25/23 15:30 IMPRESSION: Multilevel chronic wedge deformities without definitive evidence for acute fracture. Spinal stenosis at L4-5 more pronounced on the left secondary to bulging disc and facet arthropathy. MRI recommended for further evaluation if clinically warranted Electronically Signed: Santy Wiley MD at 17:37 EST , Chest X-Ray 05/25/23 16:45 IMPRESSION: Chronic interstitial changes without significant change since previous study Electronically Signed: Santy Wiley MD at 17:19 EST , Discharge Plan Triage Chief Complaint: General Illness ED Provider: Raj De La Rosa Dx/Rx/DC Orders Prescriptions: No Action atorvastatin 40 MG tablet 40 mg PO QHS leflunomide [Arava] 10 MG tablet 10 mg PO DAILY calcium carbonate [Caltrate 600] 600 MG tablet 600 mg PO DAILY Multiple Vitamin, Womens 1 EACH tablet 1 ea PO DAILY cholecalciferol (vitamin D3) [Vitamin D3] 1,000 UNIT tablet 2,000 unit PO DAILY Ferrex 150 Plus 150 MG capsule 150 mg PO DAILYCM Qty: 30 0RF baclofen 10 mg tablet 10 mg PO QHS glimepiride 2 mg tablet 2 mg PO DAILY lactulose 10 gram/15 mL solution 30 ml PO BID simethicone [Gas Relief (simethicone)] 80 mg tablet,chewable 80 mg PO 4X/DAY Rx Instructions: TAKE 1 TABLET BY MOUTH DAILY AFTER MEALS AND AT BEDTIME Farxiga 10 mg tablet 10 mg PO DAILY brimonidine-timolol 0.2-0.5 % drops 1 drp ophthalmic (eye) BID Primary Care Provider: Victor M Cochran Chi Referrals: Victor M Cochran Chi, MD [Primary Care Provider] - What to do if you have Problems For any increased pain, shortness of breath, bleeding, nausea or vomiting, chestpain, or any unexpected problems, contact your Primary Care Provider. Call [facility] ([phone]) or report to the closest Emergency Room. Call 911 if necessary. 05/25/231947 <Electronically signed by Raj De La Rosa DO> Cosigner Signature (if applicable): CC: Dr. Victor M Cochran MD ~ Signed [facility] Work Phone: 1(614) 260-595308-21-2023 Discharge summary Author Ugo Holliday [facility] January 30, 2023 3:40pm Note Date/Time January 30, 2023 1: 40pm [facility] Medical Records Department [address] [place] [address] Emergency Department Summary 01/30/23 MR#: [id number] Acct: [id number] Name: MARTHA ENGEL Rep #:[id number] : 1940 82 From: Ugo Kennedy PCP: Dr. Victor M Cochran MD Status:REG E R Location: ED HPI History of Present Illness Chief Complaint: Back Onset/Context/Timing Onset: Weeks (1) Context: Sudden Onset Timing: Continuous Quality: Aching and - (Stabbing at times) Location: Lumbar Worsened by: improves with Nothing Relieved by: Nothing Associated Symptoms Associated Symptoms: Constipation; Negative for Numbness, Tingling, Radiation toRight Leg, Radiation to Left Leg, Fever, Abdominal Pain, Dysuria, Unable to Ambulate, Unable to Transfer, Urinary Retention, Urinary Incontinence or Fecal Incontinence Narrative Narrative: Patient presents with back pain that has been getting progressively worse over the past week. Patient denies any trauma or injury. Patient states she saw herprimary care physician for some constipation. Patient states that when they didx-rays to evaluate her abdomen, they noticed 3 fractures of her lumbar spine. Patient has an appointment to see a pain management physician this week. Patient states that she has had a decreased appetite because of the pain. Family states patient is not eating and drinking much at home. Family is concerned that patient is dehydrated. Patient denies any radiation of the pain. Patient denies any bowel or bladder changes. Patient denies any saddle anesthesia. [facility] Medical History (Updated 01/30/23 @ 15:[address] Ugo Holliday, DO) Diabetes High cholesterol Osteoarthritis Rheumatoid arthritis Home Medications atorvastatin 40 mg tablet 40 mg PO QHS 07/25/14 [History Last Taken 07/24/14 18:00] calcium carbonate 600 mg calcium (1,500 mg) tablet (Caltrate 600) 600 mg PO DAILY@0800 07/25/14 [History Last Taken 07/24/14 08:00] cholecalciferol (vitamin D3) 25 mcg (1,000 unit) tablet (Vitamin D3) 2,000 unit PO DAILY 07/25/14 [History Last Taken 07/24/14 08:00] leflunomide 10 mg tablet (Arava) 10 mg PO DAILY 07/25/14 [History Last Taken 07/24/14 08:00] qmigzlxrkmrf-Xl-ndtq-minerals (Multiple Vitamin, Womens tablet) 1 ea PO DAILY 07/25/14 [History Last Taken 07/24/14 08:00] acetaminophen 325 mg tablet (Tylenol) 650 mg (2 x 325 mg) PO Q6H PRN PRN Mild Pain ##0 08/06/14 [Rx Last Taken Unknown] hydrocodone-acetaminophen 5-325mg 5mg-325mg 1 tab PO Q6H PRN PRN Pain ##30 08/06/14 [Rx Last Taken Unknown] iron aspgl and ps cmplx 150 mg-vit C 50 mg-succinic acid 50 mg capsule (Ferrex) 150 mg (1.5 x 150-50-50 mg) PO DAILYCM ##30 08/06/14 [Rx Last Taken Unknown] metformin 500 mg tablet 500 mg PO DAILYCM ##30 08/06/14 [Rx Last Taken Unknown] peg 3350-electrolytes 236 gram-22.74 gram-6.74 gram-5.86 gram solution (Golytely) 240 ml PO Q10M PRN PRN constipation #4,000 mL 01/19/23 [Rx Last Taken Unknown] hydrocodone-acetaminophen 5-325mg 5mg-325mg 1 tab PO Q6H PRN PRN Pain 3 days #10TABLETS 01/30/23 [Rx Last Taken Unknown] Allergy/AdvReac Type Severity Reaction Status Date / Time alendronate sodium Allergy Anaphylaxis Verified 01/19/23 09:40 [From Fosamax] Penicillins Allergy Swelling Verified 01/19/23 09:40 Surgical History (Updated 01/30/23 @ 13:[address] Ugo Holliday DO) S/P ORIF (open reduction internal fixation) fracture Social History Smoking Status: Never smoker ROS ROS ED Constitutional Constitutional ED: Denies chills or fever(s) Eyes Eyes: Denies blurry vision or change in vision ENT ENT ED: Reports rhinorrhea; Denies sore throat Cardiovascular Cardiovascular: Denies chest pain or palpitations Respiratory/Chest Respiratory/Chest: Denies cough or dyspnea Gastrointestinal Gastrointestinal: Reports constipation and nausea; Denies vomiting Genitourinary Genitourinary ED: Denies dysuria or hematuria Musculoskeletal Musculoskeletal: Reports back pain; Denies neck pain Integumentary Denies abscess or rash Neurologic Neurologic: Denies headache(s) or weakness Allergic/Immunologic Allergic/Immunologic ED: Denies mouth swelling or urticaria EXAM Physical Exam Const Vital Signs: 01/30/23 12:39 Temperature 97.3 F L Temperature Source Temporal Pulse Rate 86 Respiratory Rate 18 Blood Pressure 173/96 H Blood Pressure Mean 121 Pulse Ox 99 Positive well nourished and well developed General Appearance ED: well developed and NAD HEENT Reports moist mucous membranes Neck supple and no JVD Resp normal respiratory effort and clear to auscultation bilaterally Cardio regular rate, regular rhythm and no murmurs GI normal to inspection, nondistended, normoactive bowel sounds and non-tender Palpation: soft Back/Spine Back/Spine Narrative: There is tenderness over the upper lumbar spine and paraspinal muscles. There is no bony crepitance or step-off. Range of motion was limited in all motions of the lumbar spine secondary to pain. Strength is 5/5 bilaterally in the plantarflexion of the ankle and extensor of the toes. Strength is 4/5 in hip flexors. There are no sensory deficits noted. Pedal pulses are equal bilaterally. Extremity normal to inspection General Extremety ED: Negative for edema or tenderness General Extremity: Negative for edema Neuro oriented x3, CN's II-XII intact bilaterally and no sensory deficits noted Sensorium / Orientation: alert Motor Exam: strength abnormal flexion (Strength is 4/5 in flexion of the hips and elevation of the legs bilaterally.) Psych mental status grossly normal Skin no rashes or lesions noted MDM MDM MDM Narrative Medical decision making narrative: Differential diagnosis includes electrolyte abnormality, dehydration, urinary tract infection, and musculoskeletal back pain. CBC will be obtained to assess for leukocytosis and anemia. Basic metabolic profile will be obtained to assessfor electrolyte abnormality and renal function. Urinalysis will be obtained to assess for urinary tract infection. Lab Data Attestation: I reviewed the patient's lab results. Lab results narrative: CBC was reviewed. There is a slight leukocytosis of 11.5. The remainder is within normal limits. Basic metabolic profile was reviewed. Glucose was elevated at 315. Sodium was slightly low at 133. Remainder was essentially within normal limits. Urinalysis was reviewed. Occult blood was 150 with 10-25red blood cells. There is no evidence of urinary tract infection. There is glucosuria of 1000. Labs: Laboratory Results - last 24 hr 01/30/23 01/30/23 13:15 14:23 WBC 11.5 H RBC 4.22 Hgb 14.3 Hct 41.1 MCV 97.4 MCH 33.9 H MCHC 34.8 RDW Std Deviation 49.0 H RDW Coeff of Ed 13.7 Plt Count 397 MPV 8.4 Immature Gran % (Auto) 0.300 Neut % (Auto) 84.3 H Lymph % (Auto) 8.8 L [place] % (Auto) 6.3 Eos % (Auto) 0.2 Baso % (Auto) 0.1 Absolute Neuts (auto) 9.7 H Absolute Lymphs (auto) 1.01 Nucleated RBC % 0 Sodium 133 L Potassium 4.5 Chloride 99 Carbon Dioxide 28.0 Anion Gap 6 BUN 18 Creatinine 0.99 Est GFR (MDRD) Af Amer 69 Est GFR (MDRD) Non-Af 57 L BUN/Creatinine Ratio 18.1 Glucose 315 H Calcium 10.0 Urine Color Yellow Urine Clarity Sl. Cloudy Urine pH 5.0 Ur Specific [place] 1.025 Urine Protein 100 H Urine Glucose (UA) 1000 H Urine Ketones 50 H Urine Occult Blood 150 H Urine Nitrite Negative Urine Bilirubin Negative Urine Urobilinogen Normal Ur Leukocyte Esterase Negative Urine RBC 10-25 SEEN Urine WBC 0 SEEN Ur Squamous Epith Cells 0 SEEN Urine Bacteria 0 SEEN Urine Mucus 0 SEEN Management Discussion w/another healthcare provider: PCP Treatment and Re-Evaluation Narrative: Patient was given a dose of morphine and Zofran. Patient is feeling somewhat better on reevaluation. Patient was advised of her findings. Patient has not on any oral hypoglycemics at this time. Patient states she had been on metformin in the past but was taken off of that because her sugars were well controlled. Case was discussed with Dr. Cochran. He stated they will contact her tomorrow and set up an outpatient follow-up. Patient and family understood and were agreeable with the plan. Patient was given a prescription for a short course of [place]. All questions were answered. Discharge Plan Triage Chief Complaint: Back ED Provider: Ugo Holliday Dx/Rx/DC Orders Clinical Impression: Back pain, History of vertebral compression fracture, Hyperglycemia without ketosis Instructions: ED Back Pain (Acute or Chronic), ED Diabetic Hyperglycemia Prescriptions: New hydrocodone-acetaminophen [hydrocodone-acetaminophen] 5-325 mg tablet 1 tab PO Q6H PRN PRN (Reason: Pain) 3 Days Qty: 10 0RF No Action atorvastatin 40 MG tablet 40 mg PO QHS Patient Comments: treatment of high cholesterol leflunomide [Arava] 10 MG tablet 10 mg PO DAILY Patient Comments: ARTHRITIS calcium carbonate [Caltrate 600] 600 MG tablet 600 mg PO DAILY@0800 Patient Comments: supplement tebkydujwjha-Ol-sjtd-minerals [Multiple Vitamin, Womens] 1 EACH tablet 1 ea PO DAILY Patient Comments: SUPPLEMENT cholecalciferol (vitamin D3) [Vitamin D3] 1,000 UNIT tablet 2,000 unit PO DAILY Patient Comments: supplement metformin 500 MG tablet 500 mg PO DAILYCM Qty: 30 0RF Patient Comments: treatment of beatrice blood sugar acetaminophen [Tylenol] 325 MG tablet 650 mg PO Q6H PRN PRN (Reason: Mild Pain) Qty: 0 0RF Patient Comments: pain and inflammation hydrocodone-acetaminophen 1 TABLET tablet 1 tab PO Q6H PRN PRN (Reason: Pain) Qty: 30 0RF Patient Comments: pain iron aspgl,ps complex-vit C-sa [Ferrex 150 Plus] 150 MG capsule 150 mg PO DAILYCM Qty: 30 0RF Patient Comments: supplement peg 3350-electrolytes [Golytely] 236-22.74-6.74 -5.86 gram recon soln 240 ml PO Q10M PRN PRN (Reason: constipation) Qty: 4000 0RF Rx Instructions: until fecal effluent is clear Primary Care Provider: Victor M Cochran Chi Referrals: Victor M Cochran Chi, MD [Primary Care Provider] - As soon as possible Activity Restrictions/Additional Instructions: Dr. Cochran's office will call you tomorrow to schedule a follow-up appointment. Disposition Disposition: Home, Self Care What to do if you have Problems For any increased pain, shortness of breath, bleeding, nausea or vomiting, chestpain, or any unexpected problems, contact your Primary Care Provider. Call [facility] ([phone]) or report to the closest Emergency Room. Call 911 if necessary. 01/30/23 1540 <Electronically signed by Ugo Holliday DO> Cosigner Signature (if applicable): CC: Dr. Victor M Cochran MD ~ Signed [facility] Work Phone: Evaluation noteNo assessment information available [facility] Work Phone: Evaluation note* Diagnosis Onset Date Resolution Status Adult failure to thrive acut e Adult failure to thrive acut e Compression fracture of lumbar spine, non-traumatic acute Debility acute Diabetes acute Fecal impaction of colon acu te Glaucoma acute Low back pain acute Lumbar radiculopathy acute Multiple falls acute Muscle spasm acute Rheumatoid arthritis chronic [facility] Work Phone: Evaluation note* Diagnosis Onset Date Resolution Status Adult failure to thrive acut e Adult failure to thrive acut e Compression fracture of lumbar spine, non-traumatic acute Debility acute Diabetes acute Fecal impaction of colon acu te Glaucoma acute Low back pain acute Lumbar radiculopathy acute Multiple falls acute Muscle spasm acute Rheumatoid arthritis chronic Spinal stenosis, lumbar kaity on without neurogenic claudication acute [facility] Work Phone: Evaluation note* Diagnosis Onset Date Resolution Status Spinal stenosis, lumbar kaity on without neurogenic claudication acute [facility] Work Phone: Evaluation note* Diagnosis Onset Date Resolution Status Adult failure to thrive acut e [facility] Work Phone: History and physical note Author Gogo Browne [facility] May 25, 2023 8:23pm Note Date/Time May 25, 2023 7:42pm [facility] Medical Records Department [address] [place] [address] H&P Exam - Hospitalist 05/25/231940 MR#: [id number] Acct: [id number] Name: MARTHA ENGEL Rep #:[id number] : 1940 83 From: Gogo Browne MD PCP: Dr. Victor M Cochran MD Status:ADM I N Location: [place] [address] HPI - General General Date of Admission: 05/25/23 Date of Service: 05/25/23 Chief Complaint: Weakness, debility, unsafe in home, high fall risk. HPI Narrative The patient is an 83 y/o F w/ PMHx: Rheumatoid arthritis, HLD, Diabetes mellitustype II, Chronic Fe Deficiency anemia who presents to the [facility] ED on 05/25/23 with history of generalized debility and weakness with inability to take care ofherself at home with poor oral intake and weight loss associated possibly secondary to inability to get around well and make her self meals with ongoing back discomfort and some right flank discomfort as well as urinary frequency which has been chronic prompting family to eventually bring her in for PCP recommendation for consideration of skilled placement. Patient has had no recent significant upper respiratory symptoms of note. Patient and family report last bowel movement the day prior and decent sized. They do note that she is chronically on lactulose because of her constipation. Work-up in the ED included T98.4, heart 84, BP 164/92, respiratory rate 18, 94% on room air, CBC with WBC 9.1, hemoglobin 12.7, platelet 367 without marked shift, CMP with glucose 135 otherwise not marked appearing, troponin initial 14 with delta repeat 15, lipase 33, lactic acid very minimally elevated 2.1, urinalysis with specific gravity 1.015, protein 15, glucose 1000, ketone 10, occult blood 10 with negative nitrite, negative leukocyte esterase and no urine WBCs/RBCs with rare urine bacteria, rapid SARS COVID and influenza antigen both positive with noted presence of influenza B antigen only, CT abdomen and pelvis with limited visualization of bowel due to lack of opacification with contrast and lack of fat, nonspecific ileus with fecal retention and impaction, incidental finding ofhyperattenuating density within the right common femoral vein possibly a thrombus but unclear with recommendation for Doppler scanning of the groin and possibly right lower extremity, CT lumbar spine with multilevel chronic wedge deformity without definitive evidence of any acute fracture, spinal stenosis L4-5 more pronounced on the left secondary to bulging disc and facet arthropathy, chest x-ray with chronic interstitial changes without any significant change, right lower extremity venous duplex ultrasound preliminary read negative, final pending. [facility] Medical History (Updated 05/25/23 @ 19:[address] Gogo Browne MD) Diabetes High cholesterol Iron deficiency anemia Osteoarthritis Rheumatoid arthritis Home Medications cholecalciferol (vitamin D3) 25 mcg (1,000 unit) tablet (Vitamin D3) 2,000 unit PO DAILY SUPPLEMENT 07/25/14 [History Last Taken 05/25/23] acetaminophen 500 mg tablet (Tylenol Extra Strength) 1,000 mg PO BID BACK PAIN 05/25/23 [History Last Taken 05/25/23] baclofen 10 mg tablet 10 mg PO QHS MUSCLE SPASMS 05/25/23 [History Last Taken 05/24/23] brimonidine 0.2 %-timolol 0.5 % eye drops 1 drp ophthalmic (eye) 0700,1900 GLAUCOMA 05/25/23 [History Last Taken 05/25/23] dapagliflozin propanediol 10 mg tablet (Joshuaxiga) 10 mg PO DAILY BLOOD SUGARS 05/25/23 [History Last Taken 05/25/23] lactulose 10 gram/15 mL oral solution 30 ml PO BID BOWELS 05/25/23 [History Last Taken 05/25/23] simethicone 80 mg chewable tablet (Gas Relief (simethicone)) 80 mg PO BID GAS RELIEF 05/25/23 [History Last Taken 05/25/23] Allergy/AdvReac Type Severity Reaction Status Date / Time alendronate sodium Allergy Anaphylaxis Verified 05/25/23 14:57 [From Fosamax] Penicillins Allergy Swelling Verified 05/25/23 14:57 Family History (Updated 05/25/23 @ 20:[address] Gogo Browne MD) Mother Alzheimer disease Father Myocardial infarction Hypertension Heart disease CAD (coronary artery disease) Surgical History (Updated 05/25/23 @ 19:[address] Gogo Browne MD) History of surgery on arm S/P ORIF (open reduction internal fixation) fracture Social History (Updated 05/25/23 @ 19:[address] Gogo Browne MD) household members: none Smoking Status: Never smoker alcohol intake: never substance use type: does not use ROS ROS Narrative Admission Review of Systems: CONSTITUTIONAL: No weight loss, fever, chills, + weakness or fatigue. HEENT: Eyes: No visual loss, blurred vision, double vision or yellow sclerae. Ears, Nose, Throat: No hearing loss, sneezing, congestion, runny nose or sore throat. SKIN: + Very staged abrasions, ecchymoses primarily to extremities. CARDIOVASCULAR: No chest pain, chest pressure or chest discomfort, palpitations,edema, orthopnea, syncopal events. RESPIRATORY: No shortness of breath, cough or sputum, wheezing, hemoptysis. GASTROINTESTINAL: + Poor intake but primarily related with ability to get to herfood, chronic abdominal discomfort with constipation. No nausea, vomiting or diarrhea, melena, BRBPR. GENITOURINARY: + Chronic urinary frequency. No dysuria, urgency or retention. NEUROLOGICAL: No headache, dizziness, syncope, paralysis, ataxia, numbness or tingling in the extremities, focal weakness, change in bowel or bladder control,seizure. MUSCULOSKELETAL: + muscle, back pain, joint pain or stiffness. HEMATOLOGIC: + anemia, easy bleeding/bruising. LYMPHATICS: No enlarged nodes. No history of splenectomy. PSYCHIATRIC: No history of depression or anxiety. ENDOCRINOLOGIC: No reports of sweating, cold or heat intolerance. No polyuria orpolydipsia. ALLERGIES: + History of anaphylaxis. Vital Signs Vital Signs Vital Signs: 05/25/23 14:57 05/25/23 15:21 05/25/23 17:16 Temperature 98.6 F Temperature Source Temporal Pulse Rate 94 80 Respiratory Rate 16 16 Respiratory Effort Normal Respiratory Pattern Normal Blood Pressure 143/77 H 164/87 H Blood Pressure Mean 99 112 Pulse Ox 100 94 Oxygen Delivery Method Room Air Room Air 05/25/23 18:43 Temperature 98.4 F Temperature Source Oral Pulse Rate 84 Respiratory Rate 18 Respiratory Effort Respiratory Pattern Blood Pressure 164/92 H Blood Pressure Mean 116 Pulse Ox 94 Oxygen Delivery Method Room Air Weight Weight: 85 lb Body Mass Index (BMI) 15.5 Physical Exam Narrative Physical Examination: General: Awake, alert, oriented x 3 and cooperative, laying in the ED bed, fatigued but no acute distress and no acute complaints at this time. Skin: Normal color, normal turgor, no icterus, no cyanosis except occasional staged ecchymoses, abrasion. HEENT: AT/NC, EOMI, PERRLA, dry MM, no carotid bruits or JVD noted. Lungs: Mildly diminished, greater bases, proper effort, no rales, ronchi or wheezing. Heart: Regular rate and rhythm; no gallop, rub audible. Abdomen: Soft, mild generalized discomfort, no marked severe distention, significantly hyperactive BS, constipated, no appreciated HSM. Extremities: No cyanosis, no clubbing, pedal to mid carter pitting edema Neurological: Patient awake, alert, oriented as noted, cognitive function appears baseline intact; pupils equally reactive to light and accommodation, cranial nerves grossly normal, moving all 4 extremities, no focal deficits, strength severely globally decreased secondary to acute presentation and underlying comorbidities. Psychiatric: Affect appears flat, fatigued, no acute evidence of depressive or anxiety feelings. Results Lab / Micro Data 05/25/23 15:37 05/25/23 15:37 Labs: Laboratory Results - last 24 hr 05/25/23 15:37: WBC 9.1, RBC 4.01 L, Hgb 12.7, Hct 42.2, MCV 105.2 H, MCH 31.7, MCHC 30.1 L, RDW Std Deviation 52.9 H, RDW Coeff of Ed 13.7, Plt Count 367, MPV8.2, Immature Gran % (Auto) 0.400, Neut % (Auto) 71.6 H, Lymph % (Auto) 14.5 L, [place] % (Auto) 10.0, Eos % (Auto) 2.8, Baso % (Auto) 0.7, Absolute Neuts (auto) 6.5, Absolute Lymphs (auto) 1.32, Nucleated RBC % 0, Sodium 137, Potassium 4.4, Chloride 104, Carbon Dioxide 29.0, Anion Gap 4 L, BUN 14, Creatinine 0.71, EstimCreat Clear Calc 25.94, Est GFR (MDRD) Af Amer 100, Est GFR (MDRD) Non-Af 83, BUN/Creatinine Ratio 19.6, Glucose 135 H, Lactic Acid 2.1 H*, Calcium 9.2, TotalBilirubin 0.40, AST 23, ALT 19, Alkaline Phosphatase 81, Troponin I High Sens 14, Total Protein 7.0, Albumin 2.6 L, Globulin 4.4 H, Albumin/Globulin Ratio 0.6L, Lipase 33, Urine Color Yellow, Urine Clarity Clear, Urine pH 7.0, Ur SpecificGravity 1.015, Urine Protein 15 H, Urine Glucose (UA) 1000 H, Urine Ketones 50 H, Urine Occult Blood 10 H, Urine Nitrite Negative, Urine Bilirubin Negative, Urine Urobilinogen Normal, Ur Leukocyte Esterase Negative, Urine RBC 0 SEEN, Urine WBC 0-5 SEEN, Ur Squamous Epith Cells 0-5 SEEN, Urine Bacteria RARE, UrineMucus 0 SEEN 05/25/23 18:05: Troponin I High Sens 15 Micro: Microbiology 05/25/23 15:37 Nasal Secretion SARS-CoV-2 & FLU Antigen (Rapid) - Final SARS-CoV-2 (COVID 19) Influenzae B Imagaing Radiology Impression Abdomen/Pelvis CT 05/25/23 15:26 IMPRESSION: Limited visualization of the bowel due to lack of opacification with contrast and lack of fat. Nonspecific ileus with fecal retention and rectal impaction. Incidental finding of hypoattenuated density within the right common femoral vein possibly representing thrombus. Recommend Doppler scanning of the groin and possibly right lower extremity for more definitive evaluation if indicated Electronically Signed: Santy Wiley MD at 17:28 EST , Lumbar Spine CT 05/25/23 15:30 IMPRESSION: Multilevel chronic wedge deformities without definitive evidence for acute fracture. Spinal stenosis at L4-5 more pronounced on the left secondary to bulging disc and facet arthropathy. MRI recommended for further evaluation if clinically warranted Electronically Signed: Santy Wiley MD at 17:37 EST , Chest X-Ray 05/25/23 16:45 IMPRESSION: Chronic interstitial changes without significant change since previous study Electronically Signed: Santy Wiley MD at 17:19 EST , Venous Duplex 05/25/23 18:20 IMPRESSION: Normal venous Doppler ultrasound of the lower extremity. Electronically Signed: Santy Wiley MD at 19:34 EST , Assessment & Plan Assessment/Plan (1) Adult failure to thrive: PLAN: Plan The patient is an 83 y/o F w/ PMHx: Rheumatoid arthritis, HLD, Diabetes mellitustype II, Chronic Fe Deficiency anemia who presents to the [facility] ED on 05/25/23 with history of generalized debility and weakness with inability to take care ofherself at home with poor oral intake and weight loss associated possibly secondary to inability to get around well and make her self meals with ongoing back discomfort and some right flank discomfort as well as urinary frequency which has been chronic prompting family to eventually bring her in for PCP recommendation for consideration of skilled placement. Patient has had no recent significant upper respiratory symptoms of note. #1. Adult failure to thrive with progressive debility, weakness with severe high fall risk, unsafe to live alone complicated by #4 worsening: Will admit to medical surgical floor, maintain on fall precautions, further evaluation as noted for incidental SARS COVID and influenza B antigens, pending final read on duplex ultrasound but appears negative at this point and suspect over read, willconsult PT/OT/case management for discharge planning with skilled facility needsgiven advanced age and significant chronic back changes awaiting eventual follow-up with Dr. Price for laminectomy, pending debility may consider consultation during her admission but will defer until assessments made. #2. Incidentally noted positive SARS COVID and influenza B antigen, suspected false positive: Given no symptoms lower suspicion, full respiratory viral panel and COVID PCR requested to be cautious however #3. Incidental hyperattenuating density right common femoral vein, unclear etiology: Right lower extremity duplex ultrasound requested per ED with noted preliminary negative, awaiting final read. #4. Multilevel chronic wedge deformity, spinal stenosis L4-5 with chronic back pain and debility associated: CT imaging with incidentally noted significant chronic changes of the lumbar spine, no acute findings, will maintain on fall precautions, PT/OT/CM consultation for discharge planning. Encourage frequent positional changes. Patient does have upcoming evaluation again by Dr. Price with planned outpatient laminectomy at some point. #5. Chronic constipation complicated by nonspecific ileus with fecal retention:Patient with bowel movement today for which was formed per discussion with patient and family with ongoing usage of twice daily lactulose. At this point we will continue and will administer some GoLytely as well as an enema and continue to monitor. Will maintain on clears until bowel movements are moving further. #6. Chronic iron deficiency anemia: Admission hemoglobin 12.7, although as noted MCV 105.2, continue iron supplementation, trend CBC. #7. Diabetes mellitus type II: Hold oral home regimen, ADA diet, accu checks w/ISS. #8. Rheumatoid arthritis: Encourage continued outpatient follow-up with rheumatology, continue patient low-dose as needed [place], continue patient home leflunomide, PT/OT/case management consulted for discharge planning. #9. Hyperlipidemia: Continue patient on statin therapy. #10. Severe protein calorie malnutrition: Evidenced by significantly reduced BMI, obvious severe muscle and fat loss, nutrition consulted for recommendation,supplementations per their discretion. #11. DVT prophylaxis: Heparin. #12. CODE status: Patient CADY is her brother who is present and living will is currently in place. Discussed CODE status at length including difference between FULL code, DNR-CCA and DNR-CC status. Following discussions about the differences in these status, requested DNR-CCA, no intubation status. Advanced Care Planning Face to Face Time: 16 minutes. Charges/Coding Visit Charges Inpatient E&M: 93449 Init Hosp L3 Procedures Hospitalists Procedures: 52739 Advncd Care Plan 30 Min 05/25/232022 <Electronically signed by Gogo Browne MD> Cosigner Signature (if applicable): CC: Dr. Gogo Browne MD; Dr. Victor M Cochran MD~ Signed [facility] Work Phone: Hospital Discharge instructions Additional Instructions Dr. Cochran's office will call you tomorrow to schedule a follow-up appointment. [facility] Work Phone: Hospital Discharge instructions Additional Instructions Discharge to [facility] 06/16/2023, intermediate, private pay, part B therapies.[facility] Work Phone: Reason for referral (narrative)No reason for referral information availableWJoint [facility] Work Phone: Chief Complaint and Reason for Visit Chief Complaint S/O STANDING ORDER Chief Complaint STANDING ORDER Chief Complaint STANDING ORDER STANDING ORDER Chief Complaint CONSTIPATION Chief Complaint CONSTIPATION LOW BACK PAIN, ABD PAIN Fecal impaction Chief Complaint CONSTIPATION LOW BACK PAIN, ABD PAIN Fecal impaction BACK PAIN Chief Complaint CONSTIPATION LOW BACK PAIN, ABD PAIN Fecal impaction BACK PAIN S/O- PAIN- COPY PCP Chief Complaint CONSTIPATION LOW BACK PAIN, ABD PAIN Fecal impaction BACK PAIN S/O- PAIN- COPY PCP SCREENING PHOS ABD PAIN Chief Complaint S/O- PAIN- COPY PCP SCREENING PHOS ABD PAIN ADULT FTT ADULT FTT ADULT FTT ADULT FTT ADULT FTT ADULT FTT ADULT FTT ADULT FTT ADULT FTT Reason for Visit Adult failure to thr jamey Adult failure to thrive Compression fracture of lumbar spine, non-traumatic Debility Diabetes Fecal impaction of colon Glaucoma Low back pain Lumbar radiculopathy Multiple falls Muscle spasm Rheumatoid arthritis Chief Complaint S/O- PAIN- COPY PCP SCREENING PHOS ABD PAIN ADULT FTT ADULT FTT ADULT FTT ADULT FTT ADULT FTT ADULT FTT ADULT FTT ADULT FTT ADULT FTT Reason for Visit Adult failure to thr jamey Adult failure to thrive Compression fracture of lumbar spine, non-traumatic Debility Diabetes Fecal impaction of colon Glaucoma Low back pain Lumbar radiculopathy Multiple falls Muscle spasm Rheumatoid arthritis Spinal stenosis, lumbar region without neurogenic claudication Chief Complaint SCREENING PHOS ABD PAIN ADULT FTT ADULT FTT ADULT FTT ADULT FTT ADULT FTT ADULT FTT ADULT FTT ADULT FTT ADULT FTT [facility] Reason for Visit Adult failure to thr jamey Adult failure to thrive Compression fracture of lumbar spine, non-traumatic Debility Diabetes Fecal impaction of colon Glaucoma Low back pain Lumbar radiculopathy Multiple falls Muscle spasm Rheumatoid arthritis Spinal stenosis, lumbar region without neurogenic claudication Chief Complaint ADULT FTT ADULT FTT ADULT FTT ADULT FTT ADULT FTT ADULT FTT ADULT FTT ADULT FTT ADULT FTT 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 - MD [facility] Reason for Visit Adult failure to thr jamey Adult failure to thrive Compression fracture of lumbar spine, non-traumatic Debility Diabetes Fecal impaction of colon Glaucoma Low back pain Lumbar radiculopathy Multiple falls Muscle spasm Rheumatoid arthritis Spinal stenosis, lumbar region without neurogenic claudication Chief Complaint ADULT FTT ADULT FTT ADULT FTT ADULT FTT ADULT FTT ADULT FTT ADULT FTT ADULT FTT ADULT FTT 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 - MD [facility] WORK ASYMPTOMATIC MENOPAUSAL STATE Reason for Visit Adult failure to thr jamey Adult failure to thrive Compression fracture of lumbar spine, non-traumatic Debility Diabetes Fecal impaction of colon Glaucoma Low back pain Lumbar radiculopathy Multiple falls Muscle spasm Rheumatoid arthritis Spinal stenosis, lumbar region without neurogenic claudication Chief Complaint [facility] WOR K ASYMPTOMATIC MENOPAUSAL STATE Reason for Visit Spinal stenosis, lum bar region without neurogenic claudication Chief Complaint Fecal impaction BACK PAIN S/O- PAIN- COPY PCP SCREENING PHOS ABD PAIN ADULT FTT ADULT FTT Reason for Visit Adult failure to thr jamey Chief Complaint Admit Date Spondylosis without myelopathy or radicu lopathy, c October 02, 2024 3:35pm Family History No Family History Records Found Relationship Condition Age at Onset Recorded Date/T trudi Unknown Family History?COPD, No pertinent history Unknown July 25, 2014 4:26pm Family History?COPD, No pertinent history Unknown July 31, 2014 5:55pm Relationship Condition Age at Onset Recorded Date/T truid Unknown Family History?COPD, No pertinent history Unknown July 25, 2014 3:26pm Family History?COPD, No pertinent history Unknown July 31, 2014 4:55pm Relationship Condition Age at Onset Recorded Date/T trudi mother Alzheimer's disease Unknown father Myocardial infarction Unknown Hypertension Unknown Cardiac disease Unknown Coronary artery disease Unknown Advance Directives No Advanced Directives Records Found Advance Directive Response Recorded Date/ Time Advance Directives Yes July 12:56pm Living Will Yes August 06, 015 12:56pm Power of Chocolatier Yes August 06, 2014 12:56pm Advance Directive Response Recorded Date/ Time Advance Directives Yes July 11:56am Living Will Yes August 06, 015 11:56am Power of Chocolatier Yes August 06, 2014 11:56am Advance Directive Response Recorded Date/ Time Name of Medical Power of Chocolatier ? January 19, 2023 9:46am Advance Directives Yes July 12:56pm Living Will Yes January 19 9:46am Power of Chocolatier Yes January 19, 023 9:46am Advance Directive Response Recorded Date/ Time Name of Medical Power of Chocolatier ? January 19, 2023 9:46am Name of Medical Power of Chocolatier brother-ED January 30, 2023 12:50pm Advance Directives Yes July 12:56pm Living Will Yes January 30 12:50pm Power of Chocolatier Yes January 30, 023 12:50pm Advance Directive Response Recorded Date/ Time Name of Medical Power of Chocolatier Osvaldo Root May 31, 2023 2:50pm Advance Directives Yes July 11:56am Living Will Yes May 31, 2 023 2:50pm Power of Chocolatier Yes May 31, 2023 2:50pm Name of Medical Power of Chocolatier Brother (Osvaldo Root) May 25, 2023 8:52pm Advance Directive Response Recorded Date/ Time Name of Medical Power of Chocolatier Ed Root, broth er June 02, 2023 4:58pm Advance Directives Yes July 11:56am Living Will Yes June 02, 2 023 4:58pm Power of Chocolatier Yes June 02, 2023 4:58pm Name of Medical Power of Chocolatier Brother (Osvaldo Root) May 25, 2023 8:52pm Advance Directive Response Recorded Date/ Time Name of Medical Power of Chocolatier Ed Root, broth er June 02, 2023 4:58pm Name of Medical Power of Chocolatier Brother (Osvaldo Root) May 25, 2023 8:52pm Name of Medical Power of Chocolatier BROTHER June 23, 2023 9:52am Advance Directives Yes July 11:56am Living Will Yes June 23 9:52am Power of Chocolatier Yes June 23, 2023 9:52am Advance Directive Response Recorded Date/ Time Name of Medical Power of Chocolatier Ed Root, broth er June 02, 2023 5:58pm Name of Medical Power of Chocolatier Brother (Osvaldo Root) May 25, 2023 9:52pm Name of Medical Power of Chocolatier BROTHER June 23, 2023 10:52am Advance Directives Yes July 12:56pm Living Will Yes June 23 10:52am Power of Chocolatier Yes June 23, 2023 10:52am Advance Directive Response Recorded Date/ Time Advance Directives Yes July 12:56pm Living Will Yes June 23 10:52am Power of Chocolatier Yes June 23, 2023 10:52am Name of Medical Power of Chocolatier BROTHER June 23, 2023 10:52am Advance Directive Response Recorded Date/ Time Name of Medical Power of Chocolatier brother-ED January 30, 2023 11:50am Name of Medical Power of Chocolatier Osvaldo Elliottner May 25, 2023 3:21pm Advance Directives Yes July 11:56am Living Will Yes May 25, 023 3:21pm Power of Chocolatier Yes May 25, 2023 3:21pm Advance Directive Response Recorded Date/ Time Advance Directives Yes July 12:56pm Summary Purpose Additional Source Comments Goals (unrecognized section and content) Goals may be documented in a n alternate sectionGoals may be documented in an alternate sectionGoals may be documented in an alternate sectionGoals may be documented in an alternate sectionGoals may be documented in an alternate sectionGoals may be documented in an alternate sectionGoals may be documented in an alternate sectionGoals may be documented in an alternate sectionGoals may be documented in an alternate sectionGoals may be documented in an alternate sectionGoals may be documented in an alternate sectionGoals may be documented in an alternate sectionGoals may be documented in an alternate sectionGoals may be documented in an alternate section Care Teams (unrecognized sec tion and content) Team Status: Active Member Role Status Dates Dr. Victor M Cochran MD Family Provider Active Dr. Victor M Cochran MD Primary Care Provider Active Team Status: Inactive Member Role Status Dates Dr. Victor M Cochran MD Primary Care Provider Active Dr. Anuradha Avila MD Attending Provider, Referring Provider Active Team Status: Inactive Member Role Status Dates Dr. Victor M Cochran MD Primary Care Provider Active Dr. Walker Christiansen DO Emergency Provider Active Team Status: Active Member Role Status Dates Dr. Victor M Cochran MD Primary Care Provi krys, Attending Provider, Referring Provider Active Team Status: Inactive Member Role Status Dates Dr. Victor M Cochran MD Primary Care Provider Active Dr. Walker Christiansen DO Attending Provider, Emergency Provider Active Team Status: Inactive Member Role Status Dates Dr. Victor M Cochran MD Primary Care Provi krys, Attending Provider, Referring Provider Active Team Status: Inactive Member Role Status Dates Dr. Victor M Cochran MD Primary Care Provider Active Dr. Ugo Holliday DO Emergency Provider Active Team Status: Inactive Member Role Status Dates Dr. Victor M Cochran MD Primary Care Provider, Attending Provider Active Team Status: Inactive Member Role Status Dates Dr. Victor M Cochran MD Primary Care Provider Active Dr. Ugo Holliday DO Attending Provider, Emergency P brianne Active Team Status: Active Member Role Status Dates Dr. Victor M Cochran MD Primary Care Provider Active Dr. Raj De La Rosa DO Emergency Provider Active Dr. Gogo Browne MD Admit Provider, Attending Provider, Other Provider Active Team Status: Active Member Role Status Dates Dr. iVctor M Cochran MD Primary Care Provider Active Dr. Raj De La Rosa DO Emergency Provider Active Dr. Gogo Browne MD Admit Provider, Other Provider Active Dr. Andres Gomez DO Attending Provider, Other Provider Active Team Status: Active Member Role Status Dates Dr. Victor M Cochran MD Primary Care Provider Active Dr. Raj De La Rosa DO Emergency Provider Active Dr. Gogo Browne MD Admit Provider Active Dr. Saturnino Londono MD Attending Provider, Other Provider Active Dr. Andres Gomez DO Other Provider Active Team Status: Active Member Role Status Dates Dr. Victor M Cochran MD Primary Care Provi krys, Admit Provider, Attending Provider, Referring Provider Active Dr. Saturnino Green MD Other Provider Active Team Status: Inactive Member Role Status Dates Dr. Victor M Cochran MD Primary Care Provider Active Dr. Raj De La Rosa DO Emergency Provider Active Dr. Gogo Browne MD Admit Provider Active Dr. Saturnino Londono MD Attending Provider, Other Provider Active Dr. Andres Gomez DO Other Provider Active Team Status: Inactive Member Role Status Dates Dr. Victor M Cochran MD Primary Care Provi krys, Admit Provider, Attending Provider, Referring Provider Active Dr. Saturnino Green MD Other Provider Active Team Status: Active Member Role Status Dates Dr. Victor M Cochran MD Primary Care Provider Active Jacque VASQUEZ MD Attending Provider Active Team Status: Inactive Member Role Status Dates Dr. Victor M Cochran MD Primary Care Provider Active Dr. Saturnino Green MD Attending Provider, Referrin g Provider Active Team Status: Inactive Member Role Status Dates Dr. Victor M Cochran MD Primary Care Provider Active Jacque VASQUEZ MD Attending Provider Active Team Status: Inactive Member Role Status Dates Dr. Victor M Cochran MD Primary Care Provider Active Teresa Renee DX BOARD OPERATOR, DX BOARD OPERATOR-C Attending Provider Active Team Status: Inactive Member Role Status Dates Dr. Victor M Cochran MD Primary Care Provider Active Dr. Jacque Salas MD Attending Provider Active Team Status: Inactive Member Role Status Dates Dr. Victor M Cochran MD Primary Care Provider Active Jacque VASQUEZ MD Attending Provider, Referring Provider Active Team Status: Active Member Role Status Dates Dr. Victor M Cochran MD Primary Care Provider, Attending Provider Active Team Status: Active Member Role Status Dates Dr. Victor M Cochran MD Primary Care Provider Active Dr. Raj De La Rosa DO Emergency Provider Active Dr. Gogo Browne MD Admit Provider, Attending Prov ider Active Team Status: Inactive Member Role Status Dates Dr. Victor M Cochran MD Primary Care Provider Active Start: October 02, 2024 End: October 02, 2024 Dr. Mookie Price MD Attending Provider Active Start: October 02, 2024 End: October 02, 2024 Dr. Mookie Price MD Referring Provider Active Start: October 02, 2024 End: October 02, 2024 INFORMATION SOURCE (unrecogn ized section and content) DATE CREATED AUTHOR 03/26/2024 [facility] DATE CREATED AUTHOR AUTHOR'S ORGANIZ ATION 10/09/2024 [facility] FOR RECORDS PERTAINING TO PATIENTS WHO ARE [...] BE BASED ON THE PRIMARY CLINICAL RECORDS. [employer] provides no warranty or guarantee of the accuracy or completeness of information in this document.
[2025-01-11 16:03] VITALS: O2SAT 98
[2025-01-11] MEDS: levoFLOXacin IV 750 MG/150 ML BAG 100 MG IV (16:21)
[2025-01-11 16:24] LABS: Troponin T High Sens 2 HR 10 ng/L (<=14)
[2025-01-11 18:10] VITALS: BP 167/97; PULSE 98; RESP 18; TEMP 36.5; O2SAT 98
== END 2025-01-11 18:11 | disposition home or self-care (01) ==
PROVIDERS: Emergency Provider Emergency Medicine; Visit Provider Emergency Medicine
DX: J18.9 Pneumonia, unspecified organism (principal); R07.9 Chest pain, unspecified; Z66 Do not resuscitate; Z86.16 Personal history of COVID-19
CPT/HCPCS: 71046; 80048; 83880; 84484; 85025; 87040; 93005; 96361; 96365; 96366; 96375; 99285

== ENCOUNTER → 2025-01-30 | Outpatient (CLI) | payer MEDICARE, SELFPAY ==
--- NOTE | 2025-01-30 16:28 | RAD_ITS ---
PROCEDURE: LUMBAR SPINE 2 OR 3 VIEWS 01/30/2025 REASON FOR EXAM: RADICULOPATHY, SACRAL AND SACROCOCCYGEAL REGION TECHNIQUE: LUMBAR SPINE 2 OR 3 VIEWS COMPARISON: May 25, 2023 FINDINGS: Vertebrae: Bone demineralization. Depression of the superior endplate of T12, L1, L2, L3 is similar to prior CT. Central depression of L5 is better seen on prior CT. Discs: Moderate disc space narrowing L4/5. [id number] disc space narrowing lumbosacral junction. Interspinous arthropathy lumbar spine. Alignment: Normal lumbar lordosis. Very mild curvature thoracolumbar spine to the left may be positional or related to spasm. Other: Degenerative change SI joints. Left hip prosthesis. RAD/Lumbar Spine 2 or 3 Views IMPRESSION: 1. Bone demineralization 2. 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 3. Degenerative changes mainly in the lower lumbar spine. 4. Left hip prosthesis. Reading Location: [id number]
== END | disposition home or self-care (01) ==
PROVIDERS: Referring Provider Anesthesiology Pain Medicine; Visit Provider Anesthesiology Pain Medicine
DX: M54.18 Radiculopathy, sacral and sacrococcygeal region (principal)
CPT/HCPCS: 72100